=== PATIENT | female | born 1985 | race Caucasian/White ===

== ENCOUNTER → 2019-08-31 17:40 | Outpatient (CLI) | payer MEDICARE, MEDICAID, SELFPAY ==
--- NOTE | 2019-08-31 17:56 | RAD_ITS ---
STUDY: X-RAY - LUMBAR SPINE REASON FOR EXAM: Female, 34 years old. PAIN TECHNIQUE: 3 view(s) of the lumbar spine were obtained. COMPARISON: None FINDINGS: Normal lumbar lordosis. Minimal thoracolumbar scoliosis. There is a normal alignment of the vertebrae. Normal vertebral bodies and endplates. Normal disc space heights. The soft tissue structures are unremarkable. RAD/Lumbar Spine 2 or 3 Views IMPRESSION: Minimal scoliosis at the thoracolumbar junction. Electronically Signed: Kennedy Davalos DO at 23:55 EDT Tel [phone], Service support ,
--- NOTE | 2019-08-31 17:56 | RAD_ITS ---
STUDY: X-RAY - CERVICAL SPINE REASON FOR EXAM: Female, 34 years old. PAIN TECHNIQUE: 4 view(s) of the cervical spine were obtained. COMPARISON: None FINDINGS: Normal anterior atlantoaxial articulation. Normal odontoid process. Normal cervical lordosis. Normal vertebral bodies and endplates. Normal disc space heights. The soft tissue structures are unremarkable. RAD/Cerv Spine 2 or 3 Views IMPRESSION: Normal x-ray examination of the visualized cervical spine. Electronically Signed: Kennedy Davalos DO at 23:55 EDT Tel [phone], Service support ,
== END ==
PROVIDERS: PCP Internal Medicine; Referring Provider Anesthesiology Pain Medicine; Visit Provider Anesthesiology Pain Medicine
DX: M54.2 Cervicalgia (principal); M54.9 Dorsalgia, unspecified
CPT/HCPCS: 72040; 72100

== ENCOUNTER → 2020-08-30 15:35 | Outpatient (CLI) | payer MEDICARE, MEDICAID, SELFPAY ==
[2015-12-13 17:33] VITALS: BMI 49.8
[2020-08-30 18:01] LABS: Amphetamine Urine VISTA NEGATIVE (<1000 ng/mL); Barbiturate Urine VISTA NEGATIVE (< 200 ng/mL); Benzodiazepine Urine VISTA NEGATIVE (< 200 ng/mL); Cocaine Urine VISTA NEGATIVE (< 300 ng/mL); Ecstacy Urine VISTA NEGATIVE (< 500 ng/mL); Methadone Urine VISTA NEGATIVE (< 300 ng/mL); PCP Urine VISTA NEGATIVE (< 25 ng/mL); THC Urine VISTA NEGATIVE (< 50 ng/mL); Vista UDS pH Range 6
== END ==
PROVIDERS: PCP Internal Medicine; Referring Provider Anesthesiology Pain Medicine; Visit Provider Anesthesiology Pain Medicine
DX: F11.20 Opioid dependence, uncomplicated (principal)
CPT/HCPCS: 80307

== ENCOUNTER 2020-12-22 18:44 | Emergency (ER) | payer MEDICARE, MEDICAID, SELFPAY ==
[2020-12-22 18:46] VITALS: BP 144/95; PULSE 94; RESP 25; TEMP 36.4; O2SAT 100; BMI 46.0
--- NOTE | 2020-12-22 18:59 | EKG12_ITS ---
Test Reason : DYSRYTHMIA Blood Pressure : / mmHG Vent. Rate : 079 BPM Atrial Rate : 079 BPM P-R Int : 136 ms QRS Dur : 090 ms QT Int : 428 ms P-R-T Axes : 054 014 045 degrees QTc Int : 490 ms Normal sinus rhythm Prolonged QT Abnormal ECG Confirmed by KELSY COVINGTON, ILSA ([id number]), desk editor DOMINIK COTO ([id number]) on 12/26/2020 1:09:43 PM Referred By: JACQUELINE Confirmed By:ILSA TIERNEY MD
--- NOTE | 2020-12-22 19:00 | EDS_ITS ---
HPI History of Present Illness Chief Complaint: Allergic Reaction Informant: patient Onset/Context/Timing Onset: Today Context: Sudden Onset Timing: Continuous Current Severity: Mild Maximum Severity: Mild Narrative Narrative: 35-year-old female states that she around the dog thought she started having allergic reaction with tightness in her throat she then took an EpiPen which she is never done before. After she took the EpiPen she said her throat very quickly improved. But then she noticed she was very anxious, shaking and felt her heart racing. Again she had never taken an EpiPen injection before. Prior to having the allergic reaction to the dog and then taken the EpiPen she was feeling fine. She has no cardiac history. Prior similar symptoms: No Recent Illness/Hospitalization: No PFSH PFS Medical History Cholecystectomy planned Chronic pain Home Medications Veramist 2 spray NASAL DAILY 12/13/15 [History Last Taken Unknown] Xyrem 4 g PO BID 12/13/15 [History Last Taken Unknown] cetirizine [Zyrtec] 10 mg PO DAILY 12/13/15 [History Last Taken Unknown] colesevelam 1,875 mg PO BID 12/13/15 [History Last Taken Unknown] nitrofurantoin monohyd/m-cryst 100 mg PO Q12 12/13/15 [History Last Taken Unknown] oxycodone-acetaminophen 1 - 2 tab PO Q4H PRN PRN #20 tab 12/13/15 [Rx Last Taken Unknown] pantoprazole 40 mg PO BID 12/13/15 [History Last Taken Unknown] Allergy/AdvReac Type Severity Reaction Status Date / Time dog dander Allergy Shortness Verified 12/22/20 18:48 of breath infliximab [From Remicade] Allergy Anaphylaxis Verified 12/13/15 17:32 pollen extracts Allergy Shortness Verified 12/22/20 18:48 of breath rituximab [From Rituxan] Allergy Anaphylaxis Verified 12/13/15 17:32 montelukast sodium AdvReac Unknown Verified 12/13/15 17:32 [From Singulair] Surgical History History of tonsillectomy Social History Smoking Status: Never smoker ROS ROS ED ROS Narrative Denies recent illness. Review of Systems ROS Unobtainable: Denies due to encephalopathy Constitutional Constitutional ED: Denies chills or fever(s) Eyes Eyes: Denies change in vision ENT ENT ED: Denies ear pain or sore throat Cardiovascular Cardiovascular: Reports racing heartbeat; Denies chest pain or palpitations Respiratory/Chest Respiratory/Chest: Denies cough or dyspnea Gastrointestinal Gastrointestinal: Denies abdominal pain, constipation, diarrhea, nausea or vomiting Genitourinary Genitourinary ED: Denies dysuria Musculoskeletal Musculoskeletal: Denies myalgias Integumentary Denies rash Neurologic Neurologic: Denies headache(s) Psychiatric Psychiatric: Denies depression Endocrine Endocrinology: Denies polyuria Allergic/Immunologic Allergic/Immunologic ED: Denies urticaria EXAM Physical Exam Narrative Exam Narrative: 35-year-old female no acute distress initial blood pressure 144/95. Pulse ox 9% on room air no signs hypoxia. HEENT exam unremarkable. Tongue not swollen. Posterior pharynx normal. No stridor. No drooling. Lungs clear to auscultation bilaterally. Heart regular rhythm rate about 105 no murmur. Chest nontender. Abdomen soft nontender normal bowel sounds no peritoneal signs. Moving all 4 extremities. Neurologically she is awake alert with no focal motor deficits. Patient is anxious. Const Vital Signs: 12/22/20 18:46 Temperature 97.5 F L Temperature Source Temporal Pulse Rate 94 Respiratory Rate 25 H Blood Pressure 144/95 H Blood Pressure Mean 111 Pulse Ox 100 Oxygen Delivery Method Room Air HEENT Reports moist mucous membranes Negative for trauma or tenderness Eyes PERRL and EOMs intact bilaterally Neck no lymphadenopathy, supple and no JVD General: Negative for tenderness Chest Wall inspection of chest normal and palpation of chest normal Resp normal respiratory effort and clear to auscultation bilaterally Cardio regular rhythm and no murmurs Rate: tachycardic GI normal to inspection, nondistended, normoactive bowel sounds, non-tender, non- distended and no masses Inspection: Negative for abdominal distention Auscultation: normoactive bowel sounds Palpation: soft; Negative for tender, guarding or rebound tenderness present Back/Spine no CVA tenderness Extremity normal to inspection General Extremety ED: Negative for edema or tenderness General Extremity: Negative for edema Neuro oriented x3 and CN's II-XII intact bilaterally Sensorium / Orientation: alert Motor Exam: strength 5/5 throughout Psych Mood & Affect: anxious Skin no rashes or lesions noted and no wounds MDM MDM MDM Narrative Medical decision making narrative: Patient took an EpiPen for the first time and tachycardia and anxiety associated with it. Otherwise her exam is unremarkable. I will obtain an EKG. She will be given IV Benadryl both with allergic reaction and water to help relax her. I think most is secondary to anxiety. Repeat exam at 7:25 p.m. patient feels much better. She is much more relaxed and calm after medication. Her heart rates in the 70s. Watch her for another half an hour she is doing well she will be discharged home. Rhythm Strip Rhythm Strip: Sinus Rhythm Rate: 79 Ectopy: None EKG Initial EKG: Attestation: I personally reviewed and interpreted this EKG as follows: Interpretation: Sinus Rhythm and No Acute Injury Pattern Comments: Normal sinus rhythm rate of 79 no acute signs of WA or ischemia. No dysrhythmia. Compared to a prior EKG from May 2005 unchanged. Prior EKG tracings: available for review Prior: Unchanged Discharge Plan Triage Chief Complaint: Allergic Reaction ED Provider: Chucky Gilliland Dx/Rx/DC Orders Clinical Impression: Acute allergic reaction, Drug side effects Instructions: ED General Allergic Reactions, ED Drug Reaction, Other Prescriptions: No Action colesevelam 625 MG tablet 1,875 mg PO BID RF: 0 pantoprazole 40 MG tablet 40 mg PO BID RF: 0 cetirizine [Zyrtec] 10 MG capsule 10 mg PO DAILY RF: 0 Veramist 2 spray NASAL DAILY RF: 0 Xyrem 4 g PO BID RF: 0 nitrofurantoin monohyd/m-cryst 100 MG capsule 100 mg PO Q12 RF: 0 oxycodone-acetaminophen 1 TABLET tablet 1 - 2 tab PO Q4H PRN PRN (Reason: Pain) Qty: 20 RF: 0 Primary Care Provider: Almaz Rosas Referrals: Almaz Rosas MD [Primary Care Provider] - As Needed Activity Restrictions/Additional Instructions: Most your symptoms since night are a side effect of the epinephrine. I think you have an reaction to the dogs and then you took the epinephrine it accelerated your heart rate and major anxious. However the same time improve the tightness in your throat. The Benadryl will help this also and help relax you. Take it easy tonight. You should do well. Call us with any questions or concerns. Disposition Disposition: Home, Self Care
[2020-12-22] MEDS: DiphenhydrAMINE 50 MG/ML Syringe IV (19:01)
[2020-12-22 20:00] VITALS: BP 136/65; PULSE 78; RESP 12; O2SAT 96
== END 2020-12-22 20:04 | disposition home or self-care (01) ==
PROVIDERS: Emergency Provider Emergency Medicine; PCP Internal Medicine
DX: R00.0 Tachycardia, unspecified (principal); F41.9 Anxiety disorder, unspecified; T44.5X5A Adverse effect of predominantly beta-adrenoreceptor agonists, initial encounter; Y92.9 Unspecified place or not applicable
CPT/HCPCS: 93005; 96374; 99283; A4216

== ENCOUNTER 2021-01-09 17:44 | Emergency (ER) | payer MEDICARE, MEDICAID, SELFPAY ==
[2021-01-09 17:44] VITALS: BP 148/77; PULSE 70; RESP 16; TEMP 36.8; O2SAT 100; BMI 44.6
[2021-01-09 19:34] VITALS: O2SAT 98
--- NOTE | 2021-01-09 19:41 | EKG12_ITS ---
Test Reason : DYSRHYTHMIA Blood Pressure : / mmHG Vent. Rate : 073 BPM Atrial Rate : 073 BPM P-R Int : 144 ms QRS Dur : 090 ms QT Int : 398 ms P-R-T Axes : 045 000 039 degrees QTc Int : 438 ms Normal sinus rhythm Normal ECG Confirmed by KELSY COVINGTON, ILSA ([id number]), editor school photograph [employer] EPPS ([id number]) on 01/11/2021 10:14:20 AM Referred By: HERBERT Confirmed By:ILSA TIERNEY MD
--- NOTE | 2021-01-09 19:43 | EDS_ITS ---
HPI History of Present Illness Chief Complaint: Shortness of Breath Informant: patient Narrative Narrative: This patient presents with dyspnea. She also has a little tightness across the lower chest. She has cough and brings up a little clear sputum but no hemoptysis. No pleuritic pain. She has no recent travel surgery immobilization personal history of DVT or PE. No leg pain or swelling. No hormonal therapy. Her father did have a pulmonary embolus but no one else in the family. I don't know further details regarding that or his risks. Patient does have a history of significant allergies to all pollens. She also is allergic to cats and dogs and her father's new got a dog recently that she has been exposed to when she thinks this is causing problems. She has been dealing with the symptoms for a couple weeks. They wax and wane but never completely resolved. She was started on prednisone over the past week for diffuse chronic arthritis. She has reduced the dose of this now and her coughing and breathing seems to have maybe gotten a bit worse. Exposure to the dog and decrease meds makes it worse. Nothing specifically helps her. [facility] Medical History Cholecystectomy planned Chronic pain Narcolepsy POTS (postural orthostatic tachycardia syndrome) Rheumatoid arthritis Sjogrens syndrome Vasculitis Home Medications Veramist 2 spray NASAL DAILY 12/13/15 [History Last Taken Unknown] cetirizine [Zyrtec] 10 mg PO DAILY 12/13/15 [History Last Taken Unknown] colesevelam [WelChol] 1,875 mg PO DAILY 12/13/15 [History Last Taken Unknown] pantoprazole 40 mg PO BID 12/13/15 [History Last Taken Unknown] albuterol sulfate [Ventolin HFA] 2 puff INHALATION Q4H PRN PRN #1 device 01/09/21 [Rx Last Taken Unknown] buprenorphine HCl [Belbuca] 300 mcg BUCCAL BID 01/09/21 [History Last Taken Unknown] escitalopram oxalate 20 mg PO DAILY 01/09/21 [History Last Taken Unknown] ferrous sulfate 325 mg PO QODAY 01/09/21 [History Last Taken Unknown] gabapentin 600 mg PO TID 01/09/21 [History Last Taken Unknown] prednisone 40 mg PO DAILY 01/09/21 [History Last Taken Unknown] sodium,calcium,mag,pot oxybate [Xywav] 2.25 g PO BID 01/09/21 [History Last Taken Unknown] sucralfate 1 g PO BID 01/09/21 [History Last Taken Unknown] Allergy/AdvReac Type Severity Reaction Status Date / Time dog dander Allergy Shortness Verified 01/09/21 17:48 of breath infliximab [From Remicade] Allergy Anaphylaxis Verified 01/09/21 17:48 pollen extracts Allergy Shortness Verified 01/09/21 17:48 of breath rituximab [From Rituxan] Allergy Anaphylaxis Verified 01/09/21 17:48 montelukast sodium AdvReac Unknown Verified 01/09/21 17:48 [From Singulair] Surgical History History of cholecystectomy History of tonsillectomy Social History Smoking Status: Never smoker ROS ROS ED Constitutional Constitutional ED: Denies fever(s) or sweats Eyes Eyes: Denies blurry vision ENT ENT ED: Denies rhinorrhea or sore throat Cardiovascular Cardiovascular: Reports other Details: Chest tightness. It is diffuse across the lower chest. It will last for hours or days at a time. Nothing really makes it better or worse. ; Denies palpitations Respiratory/Chest Respiratory/Chest: Reports cough and dyspnea; Denies sputum Gastrointestinal Gastrointestinal: Denies nausea or vomiting Genitourinary Genitourinary ED: Denies dysuria Musculoskeletal Musculoskeletal: Denies arthralgias or myalgias Integumentary Denies rash Neurologic Neurologic: Denies headache(s) or paresthesias Endocrine Endocrinology: Denies polydipsia or polyuria Hematologic/Lymphatic Hematologic/Lymphatic: Denies easy bleeding or easy bruising Allergic/Immunologic Allergic/Immunologic ED: Denies urticaria EXAM Physical Exam Const Vital Signs: 01/09/21 17:44 01/09/21 19:34 01/09/21 19:56 Temperature 98.3 F Temperature Source Temporal Pulse Rate 70 71 Respiratory Rate 16 16 Respiratory Effort Normal Non-Labored Normal Short of Breath Respiratory Depth Normal Normal Respiratory Pattern Normal Normal Blood Pressure 148/77 H Blood Pressure Mean 100 Pulse Ox 100 96 Oxygen Delivery Method Room Air Room Air Room Air 01/09/21 20:15 Temperature Temperature Source Pulse Rate 80 Respiratory Rate 26 H Respiratory Effort Respiratory Depth Respiratory Pattern Blood Pressure 125/89 H Blood Pressure Mean 101 Pulse Ox 100 Oxygen Delivery Method Room Air Positive well nourished and well developed General Appearance ED: well developed HEENT atraumatic and trauma Eyes PERRL and EOMs intact bilaterally Neck no lymphadenopathy, supple and no JVD Resp normal respiratory effort Resp Narrative: Patient does not have any pain with deep breath. However, she does have wheezing. This is mild expiratory and in all laird. Effort and Inspection: Negative for pain with movement Auscultation: wheezes; Negative for rales, rhonchi or diminished lung sounds Cardio regular rate and regular rhythm GI non-tender and non-distended Palpation: soft Back/Spine no CVA tenderness and normal to inspection Extremity normal to inspection Extremity Narrative: No asymmetry. Patient wears chronic compression hose. General Extremety ED: Yes tenderness Neuro oriented x3 Sensorium / Orientation: alert Psych mental status grossly normal Skin Rashes: no rashes MDM MDM MDM Narrative Medical decision making narrative: Patient's x-ray shows no acute process. White count is 12.3 showing minimal elevation which is nonspecific. Minimal anemia with hemoglobin 11.1. Electrolytes show no marked abnormalities. Troponin is negative. Patient is PERC negative. I listen to her lungs again. She is very clear now she is moving good air. She just has a very faint end expiratory wheeze. I will give her another breathing treatment. She would like a note for her family saying that I think that allergies to the family dog may be contributing to her symptoms. She is already on steroids. She will follow up with her primary physician. We discussed reasons to return. Lab Data Attestation: I reviewed the patient's lab results. Labs: Laboratory Results - last 24 hr 01/09/21 01/09/21 20:10 20:10 WBC 12.3 H RBC 5.36 Hgb 11.1 L Hct 38.3 MCV 71.5 L MCH 20.7 L MCHC 29.0 L RDW Std Deviation 51.0 H RDW Coeff of Juan 20.9 H Plt Count 340 MPV 9.2 Immature Gran % (Auto) 0.700 Neut % (Auto) 85.6 H Lymph % (Auto) 8.8 L Scott % (Auto) 4.5 Eos % (Auto) 0.2 Baso % (Auto) 0.2 Absolute Neuts (auto) 10.5 H Absolute Lymphs (auto) 1.08 Nucleated RBC % 0 Platelet Estimate ADEQUATE RBC Morphology N CHROM Anisocytosis 1+ Sodium 132 L Potassium 4.1 Chloride 104 Carbon Dioxide 22.0 Anion Gap 6 BUN 11 Creatinine 0.77 Estim Creat Clear Calc 111.81 Est GFR (MDRD) Af Amer 108 Est GFR (MDRD) Non-Af 89 BUN/Creatinine Ratio 14.2 Glucose 88 Calcium 8.9 Troponin I High Sens 4.2 Radiography Diagnostic Testing: Radiology Impression Chest X-Ray 01/09/21 20:28 IMPRESSION: Normal x-ray examination of the chest. Electronically Signed: Isidoro Catsaneda MD at 20:47 EDT , Service support , Discharge Plan Triage Chief Complaint: Shortness of Breath ED Provider: Bharat Howell Dx/Rx/DC Orders Clinical Impression: Acute bronchospasm, Allergy to environmental factors Instructions: ED Bronchospasm (Adult) Prescriptions: New albuterol sulfate [Ventolin HFA] 90 mcg/actuation HFA aerosol inhaler 2 puff inhalation Q4H PRN PRN (Reason: Wheezing) Qty: 1 RF: 0 No Action colesevelam [WelChol] 625 MG tablet 1,875 mg PO DAILY RF: 0 pantoprazole 40 MG tablet 40 mg PO BID RF: 0 Zyrtec 10 MG capsule 10 mg PO DAILY RF: 0 Veramist 2 spray NASAL DAILY RF: 0 gabapentin 600 mg tablet 600 mg PO TID RF: 0 sucralfate 1 gram tablet 1 g PO BID RF: 0 ferrous sulfate 325 mg (65 mg iron) tablet 325 mg PO QODAY RF: 0 escitalopram oxalate 20 mg tablet 20 mg PO DAILY RF: 0 Belbuca 300 mcg film 300 mcg BUCCAL BID RF: 0 prednisone 20 mg Tablet 40 mg PO DAILY RF: 0 Xywav 0.5 gram/mL Solution 2.25 g PO BID RF: 0 Primary Care Provider: Almaz Rosas Referrals: Almaz Rosas MD [Primary Care Provider] - 1 Day Activity Restrictions/Additional Instructions: Limit exposures to allergens including outside allergens as well as cats and dogs that may be contributing to your symptoms. Disposition Disposition: Home, Self Care
[2021-01-09 19:56] VITALS: PULSE 71; RESP 16; RESP 18; O2SAT 96
[2021-01-09] MEDS: Ipratropium/Albuterol Sulfate 3 ML AMPUL.NEB INHALATION (19:56)
[2021-01-09 20:15] VITALS: BP 125/89; PULSE 80; RESP 26; O2SAT 100
[2021-01-09 20:16] LABS: Absolute Lymphocyte Count 1.08 X10^3/uL (0.83-4.51); Absolute Neutrophil Count 10.5 X10^3/uL (2.0-7.7); Basophil# 0.03 X10^3/uL; Basophil% 0.2 % (0-1); Eosinophil# 0.02 X10^3/uL; Eosinophils% 0.2 % (0-5); Hematocrit 38.3 % (37-47); Hemoglobin 11.1 g/dL (12.0-15.0); Lymphocyte # 1.08 X10^3/ul (0.83-4.51); Lymphocyte % 8.8 % (19-41); Mean Corpuscular Hgb 20.7 pg (27.0-32.0); Mean Corpuscular Volume 71.5 fL (81-99); Mean Platelet Vol. 9.2 fl (6.2-12.0); Monocyte# 0.55 X10^3/uL; Monocyte% 4.5 % (0-10); NRBC Flagged by Analyzer 0 % (0-5); Neutrophil # 10.48 X10^3/uL (2.7-7.7); Neutrophil % 85.6 % (47-70); POSITIVE MORPHOLOGY YES; Platelet Count 340 K/mm3 (150-450); RBC Distribution Width CV 20.9 % (11.6-14.6); Red Blood Count 5.36 M/mm3 (4.2-5.4); White Blood Count 12.3 K/mm3 (4.4-11.0)
--- NOTE | 2021-01-09 20:28 | RAD_ITS ---
STUDY: X-RAY CHEST REASON FOR EXAM: Female, 35 years old. SOB TECHNIQUE: AP and lateral views of the chest. COMPARISON: None. FINDINGS: EKG electrodes are seen. The lungs are clear and expanded. There is no demonstrated pleural abnormality. Normal size heart. Normal mediastinum and palmira. Normal visualized pulmonary arteries. Normal visualized aortic arch and descending thoracic aorta. Normal visualized thoracic spine. Normal visualized ribs, clavicles, and shoulders. There is no demonstrated abnormality of the visualized soft tissue structures of the upper abdomen. RAD/Chest PA and Lateral IMPRESSION: Normal x-ray examination of the chest. Electronically Signed: Isidoro Castaneda MD at 20:47 EDT , Service support ,
[2021-01-09 20:29] LABS: Differential Indicated SCAN CRITERIA MET
[2021-01-09 20:36] LABS: Anion Gap 6 (5-15); BUN 11 mg/dL (7-18); BUN/Creat Ratio 14.2 RATIO (10-20); Calcium,Total 8.9 mg/dL (8.5-10.1); Chloride 104 mmol/L (98-107); Creatinine, Serum 0.77 mg/dL (0.55-1.02); EST Glomerular Filtration Rate 89 mL/min (>60); Est Glom Filt Rate - Afr Amer 108 mL/min (>60); Estimated Creatinine Clearance 111.81 ml/min; Glucose 88 mg/dL (74-106); Potassium 4.1 mmol/L (3.5-5.1); Sodium Level 132 mmol/L (136-145); Troponin-I HS 4.2 pg/mL (3.0-53.7)
[2021-01-09 21:10] LABS: Anisocytosis 1+; Platelet Estimate ADEQUATE (ADEQ); Red Cell Morphology N CHROM NORMAL (NORM C&C)
== END 2021-01-09 22:19 | disposition home or self-care (01) ==
PROVIDERS: Emergency Provider Emergency Medicine; PCP Internal Medicine
DX: J98.01 Acute bronchospasm (principal); Z91.048 Other nonmedicinal substance allergy status; D64.9 Anemia, unspecified; I49.8 Other specified cardiac arrhythmias; G89.29 Other chronic pain; M06.9 Rheumatoid arthritis, unspecified; M35.00 Sjogren syndrome, unspecified; G47.419 Narcolepsy without cataplexy; Z79.52 Long term (current) use of systemic steroids; Z79.899 Other long term (current) drug therapy
CPT/HCPCS: 71046; 80048; 84484; 85025; 93005; 94640; 99251; 99284; A4216; G0463

== ENCOUNTER 2021-04-01 18:20 | Inpatient (IN) | payer MEDICARE, MEDICAID, SELFPAY ==
[2021-04-01] VITALS (10 sets, daily range): BP systolic 122–156; BP diastolic 68–89; PULSE 77–90; RESP 13–18; TEMP 36.7–37.1; O2SAT 95–100; BMI 46.0; BMI 46.5
--- NOTE | 2021-04-01 18:54 | US_ITS ---
STUDY: VENOUS DOPPLER ULTRASOUND - LEFT LOWER EXTREMITY REASON FOR EXAM: Female, 35 years old. Leg pain SWELLING TECHNIQUE: Ultrasound evaluation of the deep vein system to include jesus-scale imaging and compression was performed. Jesus-scale imaging and Doppler sonographic evaluation, including duplex spectral analysis and qualitative color flow sonography, was performed. COMPARISON: None. FINDINGS: Common Femoral Vein: Normal compression, spontaneity and augmentation. Normal color Doppler. Common Femoral Vein/Greater Saphenous Junction: Normal compression, spontaneity and augmentation. Normal color Doppler. Deep Femoral Vein: Normal compression, spontaneity and augmentation. Normal color Doppler. Femoral Proximal: Normal compression, spontaneity and augmentation. Normal color Doppler. Femoral Middle: Normal compression, spontaneity and augmentation. Normal color Doppler. Femoral Distal: Normal compression, spontaneity and augmentation. Normal color Doppler. Popliteal Vein: Normal compression, spontaneity and augmentation. Normal color Doppler. Posterior Tibial Vein: Normal compression, spontaneity and augmentation. Normal color Doppler. Peroneal Vein: Normal compression, spontaneity and augmentation. Normal color Doppler. US/Venous Duplex Imag/Limited/Uni IMPRESSION: Normal venous Doppler ultrasound of the lower extremity. Electronically Signed: Brigette Levi MD at 20:14 EDT Tel , Service support ,
[2021-04-01] MEDS: 0.9% Normal Saline 1,000 ML 999 ML IV (19:08)
[2021-04-01 19:09] LABS: Absolute Neutrophil Count 10.1 X10^3/uL (2.0-7.7); Basophil# 0.02 X10^3/uL; Basophil% 0.2 % (0-1); Eosinophil# 0.02 X10^3/uL; Eosinophils% 0.2 % (0-5); Hematocrit 42.9 % (37-47); Hemoglobin 12.7 g/dL (12.0-15.0); Lymphocyte % 5.5 % (19-41); Mean Corp Hgb Conc 29.6 g/dL (32-36); Mean Corpuscular Hgb 23.6 pg (27.0-32.0); Mean Corpuscular Volume 79.7 fL (81-99); Mean Platelet Vol. 9.1 fl (6.2-12.0); Monocyte% 1.8 % (0-10); NRBC Flagged by Analyzer 0 % (0-5); Neutrophil # 10.07 X10^3/uL (2.7-7.7); Neutrophil % 91.9 % (47-70); POSITIVE DIFFERENTIAL YES; Platelet Count 328 K/mm3 (150-450); RBC Distribution Width SD 52.1 fl (35.1-43.9); Red Blood Count 5.38 M/mm3 (4.2-5.4)
[2021-04-01 19:13] LABS: Differential Indicated SCAN CRITERIA MET
[2021-04-01 19:16] LABS: Erythrocyte Sedimentation Rate 67 mm/hr (0-30)
--- NOTE | 2021-04-01 19:19 | EDS_ITS ---
HPI History of Present Illness Chief Complaint: Cellulitis Narrative Narrative: 35-year-old female presenting with redness and swelling of the left foot and leg. She states that this started about 3 days ago. She notes that it started on the plantar surface of the distal foot. She believes she had a small wound there. The redness and swelling has now spread across the dorsum of her foot and up into the proximal tibia and calf region circumferentially. Patient states she has not had a fever but does state that she has been rundown. Patient has not been on any antibiotics. She has no history of DVT/PE. She states she has a history of Sjogren's, vasculitis, arthritis and does take Belbuca for chronic pains. She sees Dr. Darling. Patient states that she is on prednisone as well. She states she is taking 30 mg currently daily. [facility] Medical History Cholecystectomy planned Chronic pain Narcolepsy POTS (postural orthostatic tachycardia syndrome) Rheumatoid arthritis Sjogrens syndrome Vasculitis Home Medications Veramist 2 spray NASAL DAILY 12/13/15 [History Last Taken Unknown] cetirizine [Zyrtec] 10 mg PO DAILY 12/13/15 [History Last Taken Unknown] colesevelam [WelChol] 1,875 mg PO DAILY 12/13/15 [History Last Taken Unknown] pantoprazole 40 mg PO BID 12/13/15 [History Last Taken Unknown] albuterol sulfate [Ventolin HFA] 2 puff INHALATION Q4H PRN PRN #1 device 01/09/21 [Rx Last Taken Unknown] buprenorphine HCl [Belbuca] 300 mcg BUCCAL BID 01/09/21 [History Last Taken Unknown] escitalopram oxalate 20 mg PO DAILY 01/09/21 [History Last Taken Unknown] ferrous sulfate 325 mg PO QODAY 01/09/21 [History Last Taken Unknown] gabapentin 600 mg PO TID 01/09/21 [History Last Taken Unknown] prednisone 40 mg PO DAILY 01/09/21 [History Last Taken Unknown] sodium,calcium,mag,pot oxybate [Xywav] 2.25 g PO BID 01/09/21 [History Last Taken Unknown] sucralfate 1 g PO BID 01/09/21 [History Last Taken Unknown] Allergy/AdvReac Type Severity Reaction Status Date / Time dog dander Allergy Shortness Verified 04/01/21 18:21 of breath infliximab [From Remicade] Allergy Anaphylaxis Verified 04/01/21 18:21 pollen extracts Allergy Shortness Verified 04/01/21 18:21 of breath rituximab [From Rituxan] Allergy Anaphylaxis Verified 04/01/21 18:21 montelukast sodium AdvReac Unknown Verified 04/01/21 18:21 [From Singulair] Surgical History History of cholecystectomy History of tonsillectomy Social History Smoking Status: Never smoker EXAM Physical Exam Const Vital Signs: 04/01/21 18:21 04/01/21 18:24 04/01/21 18:52 Temperature 98.4 F 98.4 F 98.0 F Temperature Source Temporal Temporal Oral Pulse Rate 86 89 90 Respiratory Rate 17 18 18 Blood Pressure 156/89 H 156/89 H 148/79 H Blood Pressure Mean 111 111 102 Pulse Ox 96 95 99 Oxygen Delivery Method Room Air Room Air 04/01/21 19:44 04/01/21 20:22 04/01/21 21:00 Temperature 98.0 F 98.3 F 98.7 F Temperature Source Oral Oral Oral Pulse Rate 90 81 86 Respiratory Rate 18 16 14 Blood Pressure 148/79 H 126/68 H 124/76 H Blood Pressure Mean 102 87 92 Pulse Ox 99 98 97 Oxygen Delivery Method Room Air Room Air MDM MDM MDM Narrative Medical decision making narrative: Patient presenting with diffuse cellulitis of the left lower extremity including the foot, ankle, calf. Patient does not have a fever but states that she has been rundown and feeling a little bit lightheaded especially when ambulating. Patient states she has pain in the left leg as well fairly diffusely. She believes this started from a foot wound on the distal plantar surface and this is spread proximally over the last 3 days. Patient was initially seen in urgent care and then referred to the ER. I did obtain blood work and her CBC does not show a white blood cell count however she does have a left shift. Sed rate is 67, CRP 9.9. Renal function electrolytes are normal. Patient's lactic acid was elevated at 2.4. She was given a liter of IV fluids. Her vital signs remained stable. After speaking with the patient she states that she has a history of MRSA and cellulitis in the past. For this reason she was given vancomycin in the ED. Given that the cellulitis has spread proximally is diffuse and circumferential I believe the patient would benefit from IV antibiotics and inpatient therapy. She was discussed with the hospitalist for admission. Impression: 1. Left lower extremity cellulitis 2. Lactic acidosis Lab Data Attestation: I reviewed the patient's lab results. Labs: Laboratory Results - last 24 hr 04/01/21 04/01/21 04/01/21 18:55 18:55 18:55 WBC 11.0 RBC 5.38 Hgb 12.7 Hct 42.9 MCV 79.7 L MCH 23.6 L MCHC 29.6 L RDW Std Deviation 52.1 H RDW Coeff of Juan 18.0 H Plt Count 328 MPV 9.1 Immature Gran % (Auto) 0.400 Neut % (Auto) 91.9 H Lymph % (Auto) 5.5 L [place] % (Auto) 1.8 Eos % (Auto) 0.2 Baso % (Auto) 0.2 Absolute Neuts (auto) 10.1 H Absolute Lymphs (auto) 0.60 L Nucleated RBC % 0 Differential Comment Platelet Estimate ADEQUATE RBC Morphology NORM C+C ESR 67 H Sodium 137 Potassium 4.0 Chloride 106 Carbon Dioxide 26.0 Anion Gap 5 BUN 9 Creatinine 0.73 Estim Creat Clear Calc 117.93 Est GFR (MDRD) Af Amer 115 Est GFR (MDRD) Non-Af 95 BUN/Creatinine Ratio 12.3 Glucose 98 Lactic Acid 2.4 H* Calcium 9.2 Total Bilirubin 0.30 AST 24 ALT 48 Alkaline Phosphatase 191 H C-React Prot Ext Range 9.91 H Total Protein 8.9 H Albumin 3.5 Globulin 5.4 H Albumin/Globulin Ratio 0.6 L Radiography Diagnostic Testing: Clinical Impression(s) from Imaging Studies Venous Duplex 04/01/21 18:54 IMPRESSION: Normal venous Doppler ultrasound of the lower extremity. Electronically Signed: Brigette Levi MD at 20:14 EDT Tel , Service support , Foot X-Ray 04/01/21 20:30 IMPRESSION: Soft tissue swelling of the foot without osseous or articular abnormality. Electronically Signed: Yordy Pineda DO at 21:04 EDT Tel [phone], Service support , Tibia/Fibula X-Ray 04/01/21 20:30 IMPRESSION: Soft tissue swelling without osseous or articular abnormality. Electronically Signed: Yordy Pineda DO at 21:57 EDT Tel [phone], Service support , Discharge Plan Triage Chief Complaint: Cellulitis ED Provider: Mark Chinchilla Dx/Rx/DC Orders Prescriptions: No Action colesevelam [WelChol] 625 MG tablet 1,875 mg PO DAILY RF: 0 pantoprazole 40 MG tablet 40 mg PO BID RF: 0 Zyrtec 10 MG capsule 10 mg PO DAILY RF: 0 Veramist 2 spray NASAL DAILY RF: 0 gabapentin 600 mg tablet 600 mg PO TID RF: 0 sucralfate 1 gram tablet 1 g PO BID RF: 0 ferrous sulfate 325 mg (65 mg iron) tablet 325 mg PO QODAY RF: 0 escitalopram oxalate 20 mg tablet 20 mg PO DAILY RF: 0 buprenorphine HCl [Belbuca] 300 mcg film 300 mcg BUCCAL BID RF: 0 prednisone 20 mg Tablet 40 mg PO DAILY RF: 0 Xywav 0.5 gram/mL Solution 2.25 g PO BID RF: 0 albuterol sulfate [Ventolin HFA] 90 mcg/actuation HFA aerosol inhaler 2 puff inhalation Q4H PRN PRN (Reason: Wheezing) Qty: 1 RF: 0 Primary Care Provider: Almaz Rosas
[2021-04-01 19:26] LABS: ALB/GLOB Ratio 0.6 RATIO (0.9-2.4); AST(SGOT) 24 U/L (15-37); Alanine Aminotransfer ALT/SGPT 48 U/L (13-56); Albumin, Serum 3.5 g/dL (3.2-5.0); Alkaline Phosphatase 191 U/L (45-117); Anion Gap 5 (5-15); BUN 9 mg/dL (7-18); BUN/Creat Ratio 12.3 RATIO (10-20); CRP 9.91 mg/L (0.0-3.0); Calcium,Total 9.2 mg/dL (8.5-10.1); Chloride 106 mmol/L (98-107); Creatinine, Serum 0.73 mg/dL (0.55-1.02); EST Glomerular Filtration Rate 95 mL/min (>60); Est Glom Filt Rate - Afr Amer 115 mL/min (>60); Estimated Creatinine Clearance 117.93 ml/min; Globulin 5.4 g/dL (2.2-4.2); Glucose 98 mg/dL (74-106); Protein, Total 8.9 g/dL (6.4-8.2); Sodium Level 137 mmol/L (136-145)
[2021-04-01 19:43] LABS: Lactic Acid 2.4 mmol/L (0.4-1.9)
[2021-04-01 20:01] LABS: Platelet Estimate ADEQUATE (ADEQ); Red Cell Morphology NORM C+C NORMAL (NORM C&C)
[2021-04-01] MEDS: BENZOCAINE/MENTHOL 1 LOZENGE MUCOUS MEM (20:07)
--- NOTE | 2021-04-01 20:30 | RAD_ITS ---
STUDY: X-RAY - LEFT FOOT CLINICAL: Female, 35 years old. Foot swelling. Cellulitis beginning 3 days ago. TECHNIQUE: 3 view(s) of the foot. COMPARISON: None. FINDINGS: Normal talus, calcaneus, and tarsal bones. Normal visualized subtalar, talonavicular, calcaneocuboid, tarsal and tarsometatarsal articulations. Normal metatarsi. Normal metatarsophalangeal joint of the great toe. Normal tibial and fibular sesamoid bones. Normal interphalangeal joint of the great toe. Normal phalanges of the great toe. Normal second through fifth metatarsophalangeal joints. Normal interphalangeal joints and phalanges of the lesser toes. Mild soft tissue swelling. RAD/Foot min 3 Views IMPRESSION: Soft tissue swelling of the foot without osseous or articular abnormality. Electronically Signed: Yordy Pineda DO at 21:04 EDT Tel [phone], Service support ,
--- NOTE | 2021-04-01 20:30 | RAD_ITS ---
STUDY: X-RAY - LEFT TIBIA AND FIBULA REASON FOR EXAM: Female, 35 years old. Leg swelling. Cellulitis of the left foot symptoms began 3 days ago TECHNIQUE: AP and lateral view(s) of the tibia and fibula were obtained. COMPARISON: None. FINDINGS: Normal visualized tibia. Normal visualized fibula. There is no acute fracture, dislocation or destructive osseous pathology. The knee and ankle appear intact. Soft tissue swelling about the lower leg and ankle RAD/Tibia & Fibula 2 Views IMPRESSION: Soft tissue swelling without osseous or articular abnormality. Electronically Signed: Yordy Pineda DO at 21:57 EDT Tel [phone], Service support ,
--- NOTE | 2021-04-01 22:17 | PCM.HP.STD ---
HPI - General General Date of Admission: 04/01/21 HPI Narrative DARRYL NICHOLS, is a 35 F with a significant history of Sjogren's syndrome; rheumatoid arthritis; narcolepsy; morbid obesity; posterior orthostatic tachycardia syndrome and vasculitis who presents to the emergency department with swelling of her left foot that progressed to her left leg circumferentially. Her symptoms started about 2 to 3 days ago. Associated with her symptoms is pain and increased erythema of her left foot and left leg. Her symptoms have been progressively worsened. Patient reports a history of callus under her left foot. She reports a history of soft tissue MRSA infection of the left hip. She denies any nausea vomiting or fever. Because of a history of soft tissue MRSA emergent department doctor started patient on vancomycin. Of note at baseline patient has erythema and petechiae rash on bilateral legs, attributed to vasculitis and for which reason for which she is on prednisone. [facility] Medical History Cholecystectomy planned Chronic pain Narcolepsy POTS (postural orthostatic tachycardia syndrome) Rheumatoid arthritis Sjogrens syndrome Vasculitis Home Medications Veramist 2 spray NASAL DAILY 12/13/15 [History Last Taken Unknown] cetirizine [Zyrtec] 10 mg PO DAILY 12/13/15 [History Last Taken Unknown] colesevelam [WelChol] 1,875 mg PO DAILY 12/13/15 [History Last Taken Unknown] pantoprazole 40 mg PO BID 12/13/15 [History Last Taken Unknown] albuterol sulfate [Ventolin HFA] 2 puff INHALATION Q4H PRN PRN #1 device 01/09/21 [Rx Last Taken Unknown] buprenorphine HCl [Belbuca] 300 mcg BUCCAL BID 01/09/21 [History Last Taken Unknown] escitalopram oxalate 20 mg PO DAILY 01/09/21 [History Last Taken Unknown] ferrous sulfate 325 mg PO QODAY 01/09/21 [History Last Taken Unknown] gabapentin 600 mg PO TID 01/09/21 [History Last Taken Unknown] prednisone 40 mg PO DAILY 01/09/21 [History Last Taken Unknown] sodium,calcium,mag,pot oxybate [Xywav] 2.25 g PO BID 01/09/21 [History Last Taken Unknown] sucralfate 1 g PO BID 01/09/21 [History Last Taken Unknown] Allergy/AdvReac Type Severity Reaction Status Date / Time dog dander Allergy Shortness Verified 04/01/21 18:21 of breath infliximab [From Remicade] Allergy Anaphylaxis Verified 04/01/21 18:21 pollen extracts Allergy Shortness Verified 04/01/21 18:21 of breath rituximab [From Rituxan] Allergy Anaphylaxis Verified 04/01/21 18:21 montelukast sodium AdvReac Unknown Verified 04/01/21 18:21 [From Singulair] Family History Other Allergies Asthma Cancer Diabetes Heart disease Surgical History History of cholecystectomy History of tonsillectomy Social History Smoking Status: Never smoker ROS ROS Narrative Constitutional: Denies fever, chills, fatigue, anorexia and change in weight Eyes: Denies blurry vision, change in eye color, change in vision, discharge from eye(s), double vision, erythema, eye pain, loss of vision or other HEENT: Denies abnormal hearing, dysphagia, ear pain, epistaxis, headache(s), hearing loss, nasal congestion, nasal discharge, post nasal drip, sinus pressure, sore throat or other Cardiovascular: Denies chest pain or palpitations. Denies dyspnea on exertion, orthopnea and paroxysmal nocturnal dyspnea Respiratory/Chest: Denies cough, excessive phlegm production, shortness of breath with exertion and wheezing Gastrointestinal: Denies abdominal pain, coffee ground emesis, constipation, diarrhea, dyspepsia, hematemesis, hematochezia, loose stools, melena, nausea, vomiting or other Genitourinary: Denies burning urination, difficulty urinating, dysuria, hematuria, nocturia, urinary frequency, urinary hesitancy, urinary incontinence, urinary urgency or other Musculoskeletal: Reports lower back pain (chronic). Denies myalgias, neck pain or other Neurologic: Denies abnormal gait, abnormal speech, confusion, disequilibrium, dizziness, focal weakness, headache(s), numbness, paresthesias, seizure-like activity, seizures, syncope, tingling, tremor(s) or other Psychiatric: Denies anxiety, depression, homicidal ideation, suicidal ideation or other Endocrinology: Denies change in body appearance, cold intolerance, excessive sweating, heat intolerance, polydipsia, polyuria or other Hematologic/Lymphatic: Denies anemia, easy bleeding, easy bruising, lymphadenopathy or other Integumentary: With bilateral leg petechiae rashes. Swelling of left foot and left leg. Allergic/Immunologic: Denies rhinitis, hives, eczema, asthma or other Vital Signs Vital Signs Vital Signs: 04/01/21 18:21 04/01/21 18:24 04/01/21 18:52 Temperature 98.4 F 98.4 F 98.0 F Temperature Source Temporal Temporal Oral Pulse Rate 86 89 90 Respiratory Rate 17 18 18 Blood Pressure 156/89 H 156/89 H 148/79 H Blood Pressure Mean 111 111 102 Pulse Ox 96 95 99 Oxygen Delivery Method Room Air Room Air 04/01/21 19:44 04/01/21 20:22 04/01/21 21:00 Temperature 98.0 F 98.3 F 98.7 F Temperature Source Oral Oral Oral Pulse Rate 90 81 86 Respiratory Rate 18 16 14 Blood Pressure 148/79 H 126/68 H 124/76 H Blood Pressure Mean 102 87 92 Pulse Ox 99 98 97 Oxygen Delivery Method Room Air Room Air Weight Weight: 149.685 kg Body Mass Index (BMI) 46.0 Physical Exam Narrative Physical exam: General: Morbidly obese. Head: Normocephalic, atraumatic, no tenderness Eyes: PERRLA, EOMI ENT, no trauma, moist mucous membranes, no rhinorrhea Neck: Nontender, full range of motion, no spinal tenderness, deformities, step-off CVS: Regular rate and rhythm. S1-S2 present. No murmur, gallop or rub. Respiratory : clear to auscultation bilaterally, chest wall nontender, no wheezing Abdomen: Soft, nontender, nondistended, normal bowel sounds, no masses : Deferred Back: Nontender, no CVA tenderness, no midline spinal tenderness, deformities, step-offs Extremities: Nontender full range of motion, no trauma Skin: Point tenderness of callus at dorsal left folds. Tenderness of left foot. Swelling and erythema of left leg. Petechiae rash of bilateral legs. Neuro: Alert, oriented, cranial nerves II through XII grossly intact. Psychiatry: Normal mood. Normal affect. Not depressed. Not anxious. Results Lab / Micro Data Result Diagrams: 04/01/21 18:55 04/01/21 18:55 Labs: Laboratory Results - last 24 hr 04/01/21 18:55: WBC 11.0, RBC 5.38, Hgb 12.7, Hct 42.9, MCV 79.7 L, MCH 23.6 L, MCHC 29.6 L, RDW Std Deviation 52.1 H, RDW Coeff of Juan 18.0 H, Plt Count 328, MPV 9.1, Immature Gran % (Auto) 0.400, Neut % (Auto) 91.9 H, Lymph % (Auto) 5.5 L, [place] % (Auto) 1.8, Eos % (Auto) 0.2, Baso % (Auto) 0.2, Absolute Neuts (auto) 10.1 H, Absolute Lymphs (auto) 0.60 L, Nucleated RBC % 0, Differential Comment , Platelet Estimate ADEQUATE, RBC Morphology NORM C+C, ESR 67 H 04/01/21 18:55: Sodium 137, Potassium 4.0, Chloride 106, Carbon Dioxide 26.0, Anion Gap 5, BUN 9, Creatinine 0.73, Estim Creat Clear Calc 117.93, Est GFR (MDRD) Af Amer 115, Est GFR (MDRD) Non-Af 95, BUN/Creatinine Ratio 12.3, Glucose 98, Calcium 9.2, Total Bilirubin 0.30, AST 24, ALT 48, Alkaline Phosphatase 191 H, C-React Prot Ext Range 9.91 H, Total Protein 8.9 H, Albumin 3.5, Globulin 5.4 H, Albumin/Globulin Ratio 0.6 L 04/01/21 18:55: Lactic Acid 2.4 H* Micro: Microbiology 04/01/21 19:05 Nasal Secretion SARS-CoV-2 Antigen (Rapid) - Final Radiology Impression Venous Duplex 04/01/21 18:54 IMPRESSION: Normal venous Doppler ultrasound of the lower extremity. Electronically Signed: Brigette Levi MD at 20:14 EDT Tel , Service support , Foot X-Ray 04/01/21 20:30 IMPRESSION: Soft tissue swelling of the foot without osseous or articular abnormality. Electronically Signed: Yordy Pineda DO at 21:04 EDT Tel [phone], Service support , Tibia/Fibula X-Ray 04/01/21 20:30 IMPRESSION: Soft tissue swelling without osseous or articular abnormality. Electronically Signed: Yordy Pineda DO at 21:57 EDT Tel [phone], Service support , Assessment & Plan Assessment/Plan (1) Cellulitis of left lower extremity: PLAN: Cellulitis of left lower extremity Impression of venous duplex by radiologist: Normal venous Doppler ultrasound of the lower extremity. Venous duplex image was independently interpreted and agree radiologist interpretation. Foot x-ray; left tibia and fibula x-ray shows soft tissue swelling without osseous or articular abnormality. can not rule out a foreign body/bacteria introduced through callus of left foot. Discussed with emergent department doctor who discussed case with podiatry. Per emergency department doctor Dr. Bradley can see patient on consult. Podiatry, Dr. Bradley consulted. Emergency department labs were reviewed. Patient with normal white counts but with neutrophilia and lymphopenia. ESR is 67H, CRP is 9.91H. Of note patient is on steroids for vasculitis. Because patient has a history of MRSA vancomycin was given at the ED. Continue vancomycin. Lactic acid 2.4, trend Trend CBC and BMP. Narcolepsy Xyvaw continued. Vasculitis/Sjogren's syndrome/rheumatoid arthritis Prednisone continued Depression/anxiety Lexapro continued Chronic lower back pain gabapentin and buprenorphine continued History of allergies/asthma Albuterol as needed continued GERD Pantoprazole and sucralfate continued. DVT prophylaxis: Subcutaneous Lovenox Charges/Coding Visit Charges Inpatient E&M: 46723 Init Hosp L2
[2021-04-01 23:05] LABS: Reflex Lactate? Y
[2021-04-01 23:54] LABS: Lactic Acid 1.6 mmol/L (0.4-1.9)
[2021-04-02] MEDS: MELATONIN 3 MG TABLET PO (00:13)
[2021-04-02] MEDS: Acetaminophen 325 MG Tablet 650 MG PO ×2 (00:13→10:34)
[2021-04-02] MEDS: Pantoprazole Sodium 40 MG Tablet PO ×3 (00:14→22:33)
[2021-04-02] MEDS: Gabapentin 600 MG Tablet PO ×3 (00:14→22:33)
[2021-04-02] MEDS: Sucralfate 1 GM Tablet PO ×3 (00:15→18:00)
--- NOTE | 2021-04-02 00:20 | PCM.RX.CS ---
Consult Pharmacy has been consulted to manage selected antiobiotic: Vancomycin Type of Consult: New start Suspected Infection: Skin/Soft tissue Labs: Sodium 137 mmol/L (136-145) 04/01/21 18:55 Potassium 4.0 mmol/L (3.5-5.1) 04/01/21 18:55 Chloride 106 mmol/L (98-107) 04/01/21 18:55 Carbon Dioxide 26.0 mmol/L (21.0-32.0) 04/01/21 18:55 Anion Gap 5 (5-15) 04/01/21 18:55 BUN 9 mg/dL (7-18) 04/01/21 18:55 Creatinine 0.73 mg/dL (0.55-1.02) 04/01/21 18:55 Est GFR (MDRD) Af Amer 115 mL/min (>60) 04/01/21 18:55 Est GFR (MDRD) Non-Af 95 mL/min (>60) 04/01/21 18:55 BUN/Creatinine Ratio 12.3 RATIO (10-20) 04/01/21 18:55 Glucose 98 mg/dL (74-106) 04/01/21 18:55 Microbiology: Microbiology 04/01/21 19:05 Nasal Secretion SARS-CoV-2 Antigen (Rapid) - Final Goal Trough: 15-20 mcg/mL Pharmacy Plan for Drug Dosing: Pharmacy Service will continue to monitor and adjust dosing as required. Medications Vancomycin HCl 1,500 mg/ (Sodium Chloride) 530 mls @ 250 mls/hr IV Q8H MAKREL Discontinued Medications Vancomycin HCl 2,000 mg/ (Sodium Chloride) 540 mls @ 250 mls/hr IV X1 ONE Stop: 04/01/21 23:51 Last Admin: 04/01/21 22:15 Dose: 250 mls/hr Documented by: Follow-Up Labs: Trough Vancomycin Labs to be done on [date and time ordered]: 04/02 @ 1030
--- NOTE | 2021-04-02 01:00 | NURSING ---
Pt takes Neurontin 1200mg 3-4 hours before bed then additional 600mg and sleeping pill 1 hour before bedtime. Medication was prescribed by pts neurologist Dr. Cast in [place]. Dr. Narayanan notified, ok to give medication as pt takes at home.
--- NOTE | 2021-04-02 01:39 | PCS.PANDOC ---
PANDEMIC DOCUMENTATION INITIATED: Date: 02/04/2021 Time: 1900 Emergency documentation initiated 04/02/21
[2021-04-02 05:45] LABS: Absolute Lymphocyte Count 1.08 X10^3/uL (0.83-4.51); Absolute Neutrophil Count 5.3 X10^3/uL (2.0-7.7); Basophil# 0.01 X10^3/uL; Basophil% 0.1 % (0-1); Eosinophil# 0.03 X10^3/uL; Eosinophils% 0.4 % (0-5); Hematocrit 38.7 % (37-47); Hemoglobin 11.4 g/dL (12.0-15.0); Lymphocyte # 1.08 X10^3/ul (0.83-4.51); Lymphocyte % 15.4 % (19-41); Mean Corp Hgb Conc 29.5 g/dL (32-36); Mean Corpuscular Hgb 23.5 pg (27.0-32.0); Mean Corpuscular Volume 79.8 fL (81-99); Mean Platelet Vol. 9.5 fl (6.2-12.0); Monocyte# 0.59 X10^3/uL; Monocyte% 8.4 % (0-10); NRBC Flagged by Analyzer 0 % (0-5); Neutrophil # 5.27 X10^3/uL (2.7-7.7); Neutrophil % 75.3 % (47-70); Platelet Count 311 K/mm3 (150-450); RBC Distribution Width SD 51.9 fl (35.1-43.9); Red Blood Count 4.85 M/mm3 (4.2-5.4)
[2021-04-02 06:09] LABS: Anion Gap 7 (5-15); BUN 7 mg/dL (7-18); BUN/Creat Ratio 13.2 RATIO (10-20); Chloride 105 mmol/L (98-107); Creatinine, Serum 0.53 mg/dL (0.55-1.02); EST Glomerular Filtration Rate 138 mL/min (>60); Est Glom Filt Rate - Afr Amer 167 mL/min (>60); Estimated Creatinine Clearance 162.44 ml/min; Glucose 90 mg/dL (74-106); Potassium 3.7 mmol/L (3.5-5.1); Sodium Level 139 mmol/L (136-145)
[2021-04-02 06:18] VITALS: BP 134/86; PULSE 72; RESP 18; TEMP 36.8; O2SAT 99
--- NOTE | 2021-04-02 07:23 | CON.PCM_ITS ---
Assessment & Plan Assessment/Plan (1) Cellulitis of left lower extremity: PLAN: I reviewed and discussed her case today. A 15 blade scalpel was used to debride the callus with potential superficial foreign body to the central metatarsal head region. 1 cc of purulent drainage was expressed and nurse was resolved after gently cleanse. Subcutaneous excisional debridement was performed with a 15 blade scalpel to excise devitalized subcutaneous tissue, biofilm, slough, and fibrous tissue. Pressure was applied to maintain hemostasis. She tolerated this well. The following work up and care recommendations were made: Dressing: Change daily with Betadine and gauze Infection work-up: After debridement and irrigation was performed, culture including aerobic, anaerobic, and MRSA PCR was obtained from the wound. Her white blood cell count went from 11 to 7 overnight. Most of her erythema has resolved overnight as well with rest and IV antibiotics (vancomycin). Her ESR is elevated at 67. I do not suspect deeper tissue involvement. I recommend monitoring her on IV antibiotics with potential transition to oral antibiotics prior to discharge home. She appears to be responding well so far. It is noted she is on IV vancomycin due to her history of MRSA. Her MRSA PCR is negative so far. Changing this to a different broad-spectrum may be warranted. I will continue to monitor her culture results. Operating room intervention is not planned at this time. Imagin left foot x-rays do not demonstrate any foreign body, soft tissue emphysema, fracture, dislocation, acute osseous destruction or changes noted. Additional diagnostic data: Dopplers negative for DVT Offload: To heel weight-bear with surgical shoe; ordered Vascular: She has palpable pulses Edema: To elevate limb at rest and to resume compression stockings Pain: Pain medication ordered Host factors: Her significant medical history of Sjogren's syndrome/rheumatoid arthritis/vasculitis is noted. She is trying to progress out of her prednisone regimen under the management of outpatient rheumatology. She was advised prednisone can slow wound healing and make her more prone to infections. Recommended nutritional supplementation to optimize her wound healing. I answered all the patient's questions. Thank you for the consultation. Please do not hesitate to call if you have any questions. Miora Bradley DPM, [facility] HPI Consult Data Date of Consult: 04/02/21 HPI Narrative HPI Narrative: This 35 year old pleasant female with a significant past medical history of Sjogren's syndrome, rheumatoid arthritis on chronic prednisone, narcolepsy, morbid obesity, posterior orthostatic tachycardia syndrome, and vasculitis presented to [facility] for left foot and leg intense redness. Onset was 2 to 3 days ago. She was referred from the local urgent center. Her pain level is moderate. She denies having any known foreign body however reports she does have a callus that builds up to the ball of her left foot. She noticed a rapid increase in erythema and very intense pain. She denies known drainage or odor. She does have a history of MRSA. She denies history of prev ious wound healing recurrence. It is noted she is taking chronic prednisone and she is having difficulty weaning off of this due to it inflammatory pain. She denies claudication. She was seen this morning and relates a significant reduction in pain and redness to her left limb overnight while resting and taking IV antibiotics. [facility] Medical History (Updated 04/01/21 @ 23:45 by Adia Moralez) Anemia Anxiety Chest pain Cholecystectomy planned Chronic pain CPAP (continuous positive airway pressure) dependence Depression GERD (gastroesophageal reflux disease) Migraines Narcolepsy Non-smoker POTS (postural orthostatic tachycardia syndrome) Rheumatoid arthritis Sjogrens syndrome Sleep apnea Vasculitis Home Medications Veramist 2 spray NASAL DAILY 12/13/15 [History Last Taken 04/01/21 16:00] cetirizine [Zyrtec] 10 mg PO DAILY 12/13/15 [History Last Taken 04/01/21 15:00] colesevelam [WelChol] 1,875 mg PO DAILY 12/13/15 [History Last Taken 03/31/21 19:00] pantoprazole 40 mg PO BID 12/13/15 [History Last Taken 03/31/21 21:00] albuterol sulfate [Ventolin HFA] 2 puff INHALATION Q4H PRN PRN #1 device 01/09/21 [Rx Last Taken 04/01/21 17:00] buprenorphine HCl [Belbuca] 300 mcg BUCCAL BID 01/09/21 [History Last Taken 03/31/21 22:30] escitalopram oxalate 20 mg PO DAILY 01/09/21 [History Last Taken 04/01/21 15:00] ferrous sulfate 325 mg PO QODAY 01/09/21 [History Last Taken 03/31/21 16:00] gabapentin 600 mg PO TID 01/09/21 [History Last Taken 03/31/21 22:00] prednisone 20 mg PO DAILY 01/09/21 [History Last Taken 04/01/21 15:00] sodium,calcium,mag,pot oxybate [Xywav] 2.25 g PO BID 01/09/21 [History Last Taken 03/31/21 00:00] sucralfate 1 g PO BID 01/09/21 [History Last Taken 04/01/21 13:00] Allergy/AdvReac Type Severity Reaction Status Date / Time dog dander Allergy Shortness Verified 04/01/21 18:21 of breath infliximab [From Remicade] Allergy Anaphylaxis Verified 04/01/21 18:21 pollen extracts Allergy Shortness Verified 04/01/21 18:21 of breath rituximab [From Rituxan] Allergy Anaphylaxis Verified 04/01/21 18:21 cephalexin AdvReac Nausea Verified 04/01/21 23:20 montelukast sodium AdvReac Unknown Verified 04/01/21 23:20 [From Singulair] sulfamethoxazole AdvReac Upset Verified 04/01/21 23:20 [From Bactrim] Stomach trimethoprim [From Bactrim] AdvReac Upset Verified 04/01/21 23:20 Stomach Family History Other Allergies Asthma Cancer Diabetes Heart disease Surgical History History of cholecystectomy History of tonsillectomy Social History Smoking Status: Never smoker ROS Constitutional Constitutional: Reports malaise; Denies chills or fever(s) Eyes Eyes: Denies numbness Cardiovascular Cardiovascular: Reports edema; Denies claudication Respiratory/Chest Respiratory/Chest: Denies cough Gastrointestinal Gastrointestinal: Denies nausea or vomiting Musculoskeletal Musculoskeletal: Denies stiffness Integumentary Integumentary: Reports wounds; Denies rash Hematologic/Lymphatic Hematologic/Lymphatic: Denies easy bleeding Physical Exam Const alert and oriented x3 General Appearance: cooperative HEENT normocephalic Extremity Extremity Narrative: No calf tenderness 2/4 pt and dp pulses, left foot Dorsal contraction of lesser toes of the left foot with prominent metatarsal heads No fluctuance bogginess or crepitus on palpation No palpable abscess Compartments of the left lower extremity remain soft. Mild bilateral lower extremity edema. Compression stocking noted to right lower extremity General Extremity: edema and no tenderness to palpation of joints or extremities; Negative for cyanosis Skin Skin Narrative: Upon callus, ulcer, potential superficial foreign body site debridement, 1 cc of purulent drainage was noted and this remains superficial. Erythema faint only to dorsal forefoot and this is resolved to the ankle and leg level as compared to initial evaluation in the emergency room per chart review No odor No lymphangitic streaking or lymphadenopathy Predebridement plantar left central metatarsal region: One by one by less than 1 mm. Post debridement: 5 x 5 x 2 mm with granular base General Skin Exam: Negative for erythema Neuro Neuro Narrative: Epicritic sensation is intact via light touch Psych cooperative and affect normal Lab / Micro Data Result Diagrams: 04/02/21 05:12 04/02/21 05:12 Labs: Laboratory Results - last 24 hr 04/01/21 18:55: WBC 11.0, RBC 5.38, Hgb 12.7, Hct 42.9, MCV 79.7 L, MCH 23.6 L, MCHC 29.6 L, RDW Std Deviation 52.1 H, RDW Coeff of Juan 18.0 H, Plt Count 328, MPV 9.1, Immature Gran % (Auto) 0.400, Neut % (Auto) 91.9 H, Lymph % (Auto) 5.5 L, Chambers % (Auto) 1.8, Eos % (Auto) 0.2, Baso % (Auto) 0.2, Absolute Neuts (auto) 10.1 H, Absolute Lymphs (auto) 0.60 L, Nucleated RBC % 0, Differential Comment , Platelet Estimate ADEQUATE, RBC Morphology NORM C+C, ESR 67 H 04/01/21 18:55: Sodium 137, Potassium 4.0, Chloride 106, Carbon Dioxide 26.0, Anion Gap 5, BUN 9, Creatinine 0.73, Estim Creat Clear Calc 117.93, Est GFR (MDRD) Af Amer 115, Est GFR (MDRD) Non-Af 95, BUN/Creatinine Ratio 12.3, Glucose 98, Calcium 9.2, Total Bilirubin 0.30, AST 24, ALT 48, Alkaline Phosphatase 191 H, C-React Prot Ext Range 9.91 H, Total Protein 8.9 H, Albumin 3.5, Globulin 5.4 H, Albumin/Globulin Ratio 0.6 L 04/01/21 18:55: Lactic Acid 2.4 H* 04/01/21 23:23: Lactic Acid 1.6 04/02/21 05:12: WBC 7.0, RBC 4.85, Hgb 11.4 L, Hct 38.7, MCV 79.8 L, MCH 23.5 L, MCHC 29.5 L, RDW Std Deviation 51.9 H, RDW Coeff of Juan 18.0 H, Plt Count 311, MPV 9.5, Immature Gran % (Auto) 0.400, Neut % (Auto) 75.3 H, Lymph % (Auto) 15.4 L, Chambers % (Auto) 8.4, Eos % (Auto) 0.4, Baso % (Auto) 0.1, Absolute Neuts (auto) 5.3, Absolute Lymphs (auto) 1.08, Nucleated RBC % 0 04/02/21 05:12: Sodium 139, Potassium 3.7, Chloride 105, Carbon Dioxide 27.0, Anion Gap 7, BUN 7, Creatinine 0.53 L, Estim Creat Clear Calc 162.44, Est GFR (MDRD) Af Amer 167, Est GFR (MDRD) Non-Af 138, BUN/Creatinine Ratio 13.2, Glucose 90, Calcium 9.0 Micro: Microbiology 04/01/21 19:05 Nasal Secretion SARS-CoV-2 Antigen (Rapid) - Final Radiology Impression Venous Duplex 04/01/21 18:54 IMPRESSION: Normal venous Doppler ultrasound of the lower extremity. Electronically Signed: Brigette Levi MD at 20:14 EDT Tel , Service support , Foot X-Ray 04/01/21 20:30 IMPRESSION: Soft tissue swelling of the foot without osseous or articular abnormality. Electronically Signed: Yordy Pineda DO at 21:04 EDT Tel [phone], Service support , Tibia/Fibula X-Ray 04/01/21 20:30 IMPRESSION: Soft tissue swelling without osseous or articular abnormality. Electronically Signed: Yordy Pineda DO at 21:57 EDT Tel [phone], Service support ,
--- NOTE | 2021-04-02 07:50 | WOUNDNOTE ---
wound photo: left plantar foot
[2021-04-02] MEDS: Fluticasone 0.05% 1 SPRAY NASAL.SRY 2 SPRAY NASAL (08:43)
[2021-04-02] MEDS: Escitalopram Oxalate 20 MG Tablet PO (08:44)
[2021-04-02] MEDS: Loratadine 10 MG Tablet PO (08:44)
[2021-04-02] MEDS: predniSONE 20 MG Tablet PO (08:44)
[2021-04-02] MEDS: Enoxaparin 40 MG/0.4 ML Syringe SC ×2 (08:44→22:32)
[2021-04-02 08:49] LABS: M R Staph aureus DNA By PCR Negative (Negative); Probe Check PASS; Specimen Processing Control PASS; Staph aureus DNA By PCR POSITIVE (Negative)
[2021-04-02 10:30] VITALS: BP 127/81; PULSE 72; RESP 16; TEMP 36.6; O2SAT 97
--- NOTE | 2021-04-02 11:05 | PN.HOSP_ITS ---
Documented by User: Anum Blake GROUNDS PERSON, GROUNDS PERSON-C 04/02/21 11:12 Subjective Subjective Patient seen and examined. Reports mild abdominal cramping which she associates with antibiotics. Reports left lower extremity redness and discomfort improving. Denies fever, chills. Objective Data Objective Data Vital Signs: Vital Signs Temp Pulse Resp BP Pulse Ox 97.9 F 72 16 127/81 H 97 04/02/21 10:30 04/02/21 10:30 04/02/21 10:30 04/02/21 10:30 04/02/21 10:30 Oxygen Delivery Method Room Air Weight: 334 lb Body Mass Index (BMI) 46.5 Intake & Output: Intake and Output for Last 24 Hours 03/31/21 04/01/21 04/02/21 23:59 23:59 23:59 Intake Total 1000 / 1200 1670 / 1670 Balance 1000 / 1200 1670 / 1670 Lab / Micro Data Result Diagrams: 04/02/21 05:12 04/02/21 05:12 Labs: Laboratory Results - last 24 hr 04/01/21 18:55: WBC 11.0, RBC 5.38, Hgb 12.7, Hct 42.9, MCV 79.7 L, MCH 23.6 L, MCHC 29.6 L, RDW Std Deviation 52.1 H, RDW Coeff of Juan 18.0 H, Plt Count 328, MPV 9.1, Immature Gran % (Auto) 0.400, Neut % (Auto) 91.9 H, Lymph % (Auto) 5.5 L, [place] % (Auto) 1.8, Eos % (Auto) 0.2, Baso % (Auto) 0.2, Absolute Neuts (auto) 10.1 H, Absolute Lymphs (auto) 0.60 L, Nucleated RBC % 0, Differential Comment , Platelet Estimate ADEQUATE, RBC Morphology NORM C+C, ESR 67 H 04/01/21 18:55: Sodium 137, Potassium 4.0, Chloride 106, Carbon Dioxide 26.0, Anion Gap 5, BUN 9, Creatinine 0.73, Estim Creat Clear Calc 117.93, Est GFR (MDRD) Af Amer 115, Est GFR (MDRD) Non-Af 95, BUN/Creatinine Ratio 12.3, Glucose 98, Calcium 9.2, Total Bilirubin 0.30, AST 24, ALT 48, Alkaline Phosphatase 191 H, C-React Prot Ext Range 9.91 H, Total Protein 8.9 H, Albumin 3.5, Globulin 5.4 H, Albumin/Globulin Ratio 0.6 L 04/01/21 18:55: Lactic Acid 2.4 H* 04/01/21 23:23: Lactic Acid 1.6 04/02/21 05:12: WBC 7.0, RBC 4.85, Hgb 11.4 L, Hct 38.7, MCV 79.8 L, MCH 23.5 L, MCHC 29.5 L, RDW Std Deviation 51.9 H, RDW Coeff of Juan 18.0 H, Plt Count 311, MPV 9.5, Immature Gran % (Auto) 0.400, Neut % (Auto) 75.3 H, Lymph % (Auto) 15.4 L, [place] % (Auto) 8.4, Eos % (Auto) 0.4, Baso % (Auto) 0.1, Absolute Neuts (auto) 5.3, Absolute Lymphs (auto) 1.08, Nucleated RBC % 0 04/02/21 05:12: Sodium 139, Potassium 3.7, Chloride 105, Carbon Dioxide 27.0, Anion Gap 7, BUN 7, Creatinine 0.53 L, Estim Creat Clear Calc 162.44, Est GFR (MDRD) Af Amer 167, Est GFR (MDRD) Non-Af 138, BUN/Creatinine Ratio 13.2, Glucose 90, Calcium 9.0 04/02/21 07:30: S.aureus Protein A PCR POSITIVE H, MRSA (PCR) Negative Micro: Microbiology 04/01/21 19:05 Nasal Secretion SARS-CoV-2 Antigen (Rapid) - Final Radiography Diagnostic Testing: Radiology Impression Venous Duplex 04/01/21 18:54 IMPRESSION: Normal venous Doppler ultrasound of the lower extremity. Electronically Signed: Brigette Levi MD at 20:14 EDT Tel , Service support , Foot X-Ray 04/01/21 20:30 IMPRESSION: Soft tissue swelling of the foot without osseous or articular abnormality. Electronically Signed: Yordy Pineda DO at 21:04 EDT Tel [phone], Service support , Tibia/Fibula X-Ray 04/01/21 20:30 IMPRESSION: Soft tissue swelling without osseous or articular abnormality. Electronically Signed: Yordy Pineda DO at 21:57 EDT Tel [phone], Service support , Physical Exam Const alert, oriented x3 and no apparent distress Orientation / Consciousness: awake, oriented to person, oriented to place and oriented to time Nutritional Appearance: obese HEENT normocephalic and moist oral mucous membranes Eyes PERRL, EOMs intact bilaterally and conjunctivae normal Neck no lymphadenopathy Resp normal respiratory effort and clear to auscultation bilaterally Cardio regular rate, regular rhythm and no murmurs Peripheral Pulses: pulses 2+ throughout GI normal to inspection, nondistended, normoactive bowel sounds, non-tender and non-distended Extremity normal to inspection Skin no rashes or lesions noted Skin Narrative: Left lower extremity erythema. Left foot dressing intact. Lesions: no lesions Rashes: no rashes Trauma: no lacerations or abrasions Neuro CN's II-XII intact bilaterally, no focal motor deficits, no sensory deficits noted and deep tendon reflexes 2+ bilaterally Psych mental status grossly normal and affect normal Assessment & Plan Assessment/Plan (1) Cellulitis of left lower extremity: PLAN: 1. Left lower extremity cellulitis-podiatry consulted. Left lower extremity heel callus debrided with small amount of purulence. Cultures pending. Continue dressing changes as ordered. On IV vancomycin. Sjogren's syndrome/rheumatoid arthritis/vasculitis-continue home prednisone regimen. Narcolepsy-on Xyvaw. Depression/anxiety-continue Lexapro. Chronic back pain-on gabapentin, buprenorphine. Chronic intermittent asthma/seasonal allergies-as needed albuterol inhaler, Zantac. GERD-continue PPI, Carafate. Morbid obesity- BMI 46.6. Encouraged diet and lifestyle modifications. DVT prophylaxis-Lovenox subcu This patient was seen by SULLY Stearns under the supervision of Dr. Mcmillan. Documented by User: Dr. Sonny Mcmillan MD 04/02/21 14:51 Objective Data Lab / Micro Data Result Diagrams: 04/02/21 05:12 04/02/21 05:12 Charges/Coding Addendum Addendum: Dr. Mcmillan: I personally reviewed the chart and examined the patient, and agree with the above findings. 35-year-old female with a history of narcolepsy, Sjogren's, vasculitis, rheumatoid arthritis presented to the hospital with left lower extremity cellulitis. She notes that she had a callus and some redness a few days ago and then on the day of admission she started having significant pain with walking so she went to an urgent care who recommended she present to the hospital. She has no leukocytosis and remains afebrile. Podiatry evaluated her and did not feel that she needed an OR at this time they did unroofed the callus and obtained a culture. We will continue with IV antibiotics for now pending improvement. Visit Charges Inpatient E&M: 93216 Subs Hosp L2
--- NOTE | 2021-04-02 11:35 | CASEMGMT ---
MIRZA VARELA Assessment: Face to Face with pt for initial transition planning/care coordination assessment. MIRZA VARELA introduced self and role at [facility], pt voices understanding and consents to assessment. Pt is A/O x4 and answers all questions appropriately at this time. Pt sitting up in bed with lunch tray in no distress. Care providers, pharmacy, and demographics verified/updated. Admitting Dx: cellulitis PCP: Alison Specialists: Phong, pain mgmt; Segun neuro Preferred Pharmacy: [facility] while inpatient Insurance: [employer] [facility], [facility] Prescription Benefit: yes LW/HPOA: Pt denies having a LW/DPOA. Pt states she would be interested in completing this while inpatient if possible. Notified Fausto SHARIF of this. LNOK: Dee Tam, stepmother; David Tam, father Living Arrangements: Pt lives with father and stepmother in a two story house with 3 steps to enter without a rail. Pt states she is usually I in ADL's but if she cannot do them one day, she skips it. Pt denies concerns at home. Transportation: Pt states her father usually transports her to medical appts but recently had shoulder surgery so he cannot drive now. Pt denies concerns with transportation. She states she can drive if she has to. DME/HHC/SNF: Pt has a medic alert, CPAP, cane and shower chair. Pt denies hx of HHC or SNF stays. Pt is disabled. She denies using cigarettes, alcohol, street drugs or illegal drugs. Pt states no concerns with going home at time of dc. Pt states no further concerns/needs. CM to follow. Advised pt to ask CM if any further question/concerns/needs arise, voices understanding. Pt Goal: Home Plan: Home, will follow and monitor for need for wound care.
[2021-04-02 15:20] VITALS: BP 125/78; PULSE 72; RESP 18; TEMP 36.5; O2SAT 97
[2021-04-02] MEDS: 0.9% Saline Lock 10 ML Syringe IV ×2 (15:30→18:00)
--- NOTE | 2021-04-02 16:09 | CASEMGMT ---
Social Work Note SW received referral for Advanced Directives. SW in to speak with pt. Pt states she is not sure who she would want to name to be her HCPOA as her mother a few years ago. SW informed pt that this worker can provide her with documents and once pt decides who she wants to name to be HCPOA, she can complete documents a later time. Pt states she would like to complete documents now, will change her POA later if needed. Pt completed Advanced Directives. Original provided to pt and copy placed on pt's chart. Pt denied additional needs or concerns at this time. Freida Moya [employer], [employer]
[2021-04-02] MEDS: Juven (unflavored) Packet 1 PACKET PO (17:00)
[2021-04-02] MEDS: Gabapentin 600 MG Tablet 1200 MG PO (18:00)
[2021-04-02 20:30] VITALS: BP 119/64; PULSE 80; RESP 16; TEMP 37.4; O2SAT 98
[2021-04-02] MEDS: DiphenhydrAMINE 25 MG Capsule PO (22:34)
[2021-04-02] MEDS: BUPRENORPHINE HCL 150 MCG FILM 300 MCG BUCCAL (22:38)
[2021-04-02 22:41] LABS: Vancomycin, Trough Level 16.7 ug/mL (5.0-15.0)
--- NOTE | 2021-04-03 00:17 | PCM.RX.CS ---
Consult Pharmacy has been consulted to manage selected antiobiotic: Vancomycin Type of Consult: Follow-up Labs: Sodium 139 mmol/L (136-145) 04/02/21 05:12 Potassium 3.7 mmol/L (3.5-5.1) 04/02/21 05:12 Chloride 105 mmol/L (98-107) 04/02/21 05:12 Carbon Dioxide 27.0 mmol/L (21.0-32.0) 04/02/21 05:12 Anion Gap 7 (5-15) 04/02/21 05:12 BUN 7 mg/dL (7-18) 04/02/21 05:12 Creatinine 0.53 mg/dL (0.55-1.02) L 04/02/21 05:12 Est GFR (MDRD) Af Amer 167 mL/min (>60) 04/02/21 05:12 Est GFR (MDRD) Non-Af 138 mL/min (>60) 04/02/21 05:12 BUN/Creatinine Ratio 13.2 RATIO (10-20) 04/02/21 05:12 Glucose 90 mg/dL (74-106) 04/02/21 05:12 Vancomycin Trough 16.7 ug/mL (5.0-15.0) H 04/02/21 21:30 Microbiology: Microbiology 04/02/21 07:30 Wound - Left Foot Gram Stain - Final 04/01/21 19:05 Nasal Secretion SARS-CoV-2 Antigen (Rapid) - Final Goal Trough: 15-20 mcg/mL Pharmacy Plan for Drug Dosing: Pharmacy Service will continue to monitor and adjust dosing as required. TROUGH 16.7 AT 6 HRS. NO CHANGES, FOLLOW UP TROUGH IN 2 DAYS Follow-Up Labs: Trough Vancomycin Labs to be done on [date and time ordered]: 04/04 @ 6341
[2021-04-03 02:30] VITALS: BP 129/70; PULSE 67; RESP 16; TEMP 36.7; O2SAT 98
[2021-04-03] MEDS: Sucralfate 1 GM Tablet PO (06:03)
--- NOTE | 2021-04-03 07:24 | PN_ITS ---
Subjective Subjective This 35-year-old female seen bedside this morning for follow-up of left lower extremity cellulitis with foot wound. She denies fever, chill, nausea, vomiting. Her pain is 9/10 not as intense at the time of admission however she does still moderate level pain. Objective Data Objective Data Vital Signs: Vital Signs Temp Pulse Resp BP Pulse Ox 98.1 F 67 16 129/70 H 98 04/03/21 02:30 04/03/21 02:30 04/03/21 02:30 04/03/21 02:30 04/03/21 02:30 Oxygen Delivery Method Room Air Weight: 151.5 kg Body Mass Index (BMI) 46.5 Intake & Output: Intake and Output for Last 24 Hours 04/01/21 04/02/21 04/03/21 23:59 23:59 23:59 Intake Total 1000 / 1200 3000 / 3000 930 / 930 Balance 1000 / 1200 3000 / 3000 930 / 930 Lab / Micro Data Result Diagrams: 04/02/21 05:12 04/02/21 05:12 Labs: Laboratory Results - last 24 hr 04/02/21 07:30: S.aureus Protein A PCR POSITIVE H, MRSA (PCR) Negative 04/02/21 21:30: Vancomycin Trough 16.7 H Micro: Microbiology 04/02/21 07:30 Wound - Left Foot Gram Stain - Final 04/01/21 19:05 Nasal Secretion SARS-CoV-2 Antigen (Rapid) - Final Physical Exam Const alert and oriented x3 General Appearance: cooperative HEENT normocephalic Extremity Extremity Narrative: No calf tenderness 2/4 pt and dp pulses, left foot Dorsal contraction of lesser toes of the left foot with prominent metatarsal heads No fluctuance bogginess or crepitus on palpation No palpable abscess Compartments of the left lower extremity remain soft. decreased bilateral lower extremity edema. Pain to palpate ulcer site No pain to palpate dorsal metatarsophalangeal joints or adjacent areas. General Extremity: edema and no tenderness to palpation of joints or extremities; Negative for cyanosis Skin Skin Narrative: no purulence on expression noted today Erythema resolved to foot and leg. Vasculitis type petechiae intermittent to bilateral lower extremities No odor No lymphangitic streaking or lymphadenopathy General Skin Exam: Negative for erythema Neuro Neuro Narrative: Epicritic sensation is intact via light touch Psych cooperative and affect normal Assessment & Plan Assessment/Plan (1) Cellulitis of left lower extremity: PLAN: I reviewed and discussed her case today. She is afebrile and her vital signs remained stable. The following work up and care recommendations were made: Dressing: Change daily with Betadine and gauze Infection work-up: She is responding well to IV vancomycin. Cultures reviewed without any bacterial growth noted so far. Her MRSA PCR is negative. Her blood cultures are negative so far. She is reassured her erythema and purulence have resolved. She is clinical improvement with downtrending white blood cell count. Offload: To heel weight-bear with surgical shoe; ordered Edema: To elevate limb at rest and to resume compression stockings Pain: Pain medication ordered; tramadol Host factors: Her significant medical history of Sjogren's syndrome/rheumatoid arthritis/vasculitis is noted. She is trying to progress out of her prednisone regimen under the management of outpatient rheumatology. She was advised prednisone can slow wound healing and make her more prone to infections. Recommended nutritional supplementation to optimize her wound healing. I answered all the patient's questions. Due to improvement, it appears it may be appropriate to transition her to the outpatient setting with oral antibiotics at this time. Reviewed with hospitalist; will be d/c on doxy. She can follow- up at the [facility] after discharge in one week. Please do not hesitate to call if you have any questions. Moira Bradley DPM, [facility]
[2021-04-03 07:38] VITALS: O2SAT 98
[2021-04-03 08:45] VITALS: BP 134/81; PULSE 73; RESP 16; TEMP 36.4; O2SAT 98
[2021-04-03] MEDS: 0.9% Saline Lock 10 ML Syringe IV (08:48)
[2021-04-03] MEDS: Fluticasone 0.05% 1 SPRAY NASAL.SRY 2 SPRAY NASAL (08:48)
[2021-04-03] MEDS: predniSONE 20 MG Tablet PO (08:49)
[2021-04-03] MEDS: Pantoprazole Sodium 40 MG Tablet PO (08:49)
[2021-04-03] MEDS: Juven (unflavored) Packet 1 PACKET PO (08:49)
[2021-04-03] MEDS: Loratadine 10 MG Tablet PO (08:49)
[2021-04-03] MEDS: Ferrous Sulfate 325 MG Tablet PO (08:49)
[2021-04-03] MEDS: Escitalopram Oxalate 20 MG Tablet PO (08:49)
[2021-04-03] MEDS: Enoxaparin 40 MG/0.4 ML Syringe SC (08:51)
[2021-04-03] MEDS: BUPRENORPHINE HCL 150 MCG FILM 300 MCG BUCCAL (09:04)
--- NOTE | 2021-04-03 09:36 | DCINST_ITS ---
Discharge Instructions Diet Discharge Diet: No restrictions and 2000 Calorie Control Diet Activity Discharge Activity: Return to Normal Activity Additional Activity Instructions:: To heel weight-bear with surgical shoe, elevate limb at rest and to resume compression stockings Dressing / Incision Call your doctor if your incision/area has: Continuous Slow Oozing, Sudden Increased Bleeding, Increased Pain/ Swelling, Increased Redness, Foul Smelling Discharge and Swelling at the incision site Call your doctor if you observe: Fever of 101 or Higher, Shortness of breath, Dizziness and Chest pain Follow Up Care Test Results: Test results from this visit will be discussed in further detail at your follow-up appointment, if applicable. Discharge Plan Admission Admit Date/Time: 04/01/21 22:05 Primary Reason for Your Visit: Cellulitis Attending Provider: Sonny Mcmillan Primary Care Provider: Almaz Rosas Consulting Providers: Moira Bradley Instructions Additional Instructions / Restrictions: Change her dressing daily with Betadine gauze, Kerlix, and Paddy wrap. Do not soak your foot. Wash foot with antibacterial soap and water with each dressing change. Elevate left lower extremity at rest. Heel weightbearing surgical shoe to keep pressure off of her ulcer site. Use cane for assistance. Follow-up with vehicle fuel systems converter to continue with prednisone adjustments. Discharge Orders/Prescriptions Prescriptions: New acidophilus-pectin, citrus 25 million cell -100 mg Tablet 2 tab PO BID 14 Days Qty: 56 RF: 0 doxycycline hyclate 100 mg tablet 100 mg PO BID Qty: 12 RF: 0 Continued colesevelam [WelChol] 625 MG tablet 1,875 mg PO DAILY RF: 0 pantoprazole 40 MG tablet 40 mg PO BID RF: 0 Zyrtec 10 MG capsule 10 mg PO DAILY RF: 0 Veramist 2 spray NASAL DAILY RF: 0 gabapentin 600 mg tablet 600 mg PO TID RF: 0 sucralfate 1 gram tablet 1 g PO BID RF: 0 ferrous sulfate 325 mg (65 mg iron) tablet 325 mg PO QODAY RF: 0 escitalopram oxalate 20 mg tablet 20 mg PO DAILY RF: 0 buprenorphine HCl [Belbuca] 300 mcg film 300 mcg BUCCAL BID RF: 0 prednisone 20 mg Tablet 20 mg PO DAILY RF: 0 Xywav 0.5 gram/mL Solution 2.25 g PO BID RF: 0 albuterol sulfate [Ventolin HFA] 90 mcg/actuation HFA aerosol inhaler 2 puff inhalation Q4H PRN PRN (Reason: Wheezing) Qty: 1 RF: 0 Referrals / Follow Up: Moira Bradley DPM [STAFF PHYSICIAN] - In 1 Week Almaz Rosas MD [Primary Care Provider] - In 1 Week Disposition Disposition (needs filled in before D/C Order can be placed): Home, Self Care
--- NOTE | 2021-04-03 09:52 | PCM.DC.SUM ---
Providers Date of Admission: 04/01/21 Date of Discharge: 04/03/21 Primary Care Physician: Dr. Almaz Rosas MD Consultations 04/01/21 23:14 Consult: Podiatry Routine Consulting Provider: Moira Bradley Reason for Consult: Possible foreign body EMERGENT Consult: No MD Notified: Yes Date Notified: 04/02/21 Time Notified: 06:35 Method of Notification: Verbal Reason For Visit: CELLULITIS Diagnosis Discharge Diagnosis (1) Cellulitis of left lower extremity: Status: Acute Code(s): L03.116 - Cellulitis of left lower limb Medications at Discharge Home Medications Veramist 2 spray NASAL DAILY 12/13/15 Zyrtec 10 mg PO DAILY 12/13/15 colesevelam [WelChol] 1,875 mg PO DAILY 12/13/15 pantoprazole 40 mg PO BID 12/13/15 Xywav 2.25 g PO BID 01/09/21 albuterol sulfate [Ventolin HFA] 2 puff INHALATION Q4H PRN PRN #1 device 01/09/21 buprenorphine HCl [Belbuca] 300 mcg BUCCAL BID 01/09/21 escitalopram oxalate 20 mg PO DAILY 01/09/21 ferrous sulfate 325 mg PO QODAY 01/09/21 gabapentin 600 mg PO TID 01/09/21 prednisone 20 mg PO DAILY 01/09/21 sucralfate 1 g PO BID 01/09/21 acidophilus-pectin, citrus 2 tab PO BID 14 Days #56 tab 04/03/21 doxycycline hyclate 100 mg PO BID #12 tab 04/03/21 Hospital Course Operations None Procedures None Summary of Care Provided Minutes Spent on Discharge: 35 Hospital Course: Patient is a 35-year-old female admitted 04/01/2021 due to left lower extremity cellulitis. 1. Left lower extremity cellulitis-podiatry consulted. Left lower extremity heel callus debrided with small amount of purulence. Cultures pending. IV vancomycin during admission. MSSA positive, MRSA negative. Allergy to Keflex, Bactrim. Discharged on doxycycline to complete course. Follow-up with podiatry in 1 week. 2. Sjogren's syndrome/rheumatoid arthritis/vasculitis-continue home prednisone regimen. 3. Narcolepsy-on Xyvaw. 4. Depression/anxiety-continue Lexapro. 5. Chronic back pain-on gabapentin, buprenorphine. 6. Chronic intermittent asthma/seasonal allergies-as needed albuterol inhaler, Zantac. 7. GERD-continue PPI, Carafate. 8. Morbid obesity- BMI 46.6. Encouraged diet and lifestyle modifications. Physical Exam Const alert, oriented x3 and no apparent distress Orientation / Consciousness: awake, oriented to person, oriented to place and oriented to time Nutritional Appearance: obese HEENT normocephalic and moist oral mucous membranes Eyes PERRL, EOMs intact bilaterally and conjunctivae normal Neck no lymphadenopathy Resp normal respiratory effort and clear to auscultation bilaterally Cardio regular rate, regular rhythm and no murmurs Peripheral Pulses: pulses 2+ throughout GI normal to inspection, nondistended, normoactive bowel sounds, non-tender and non-distended Extremity normal to inspection Skin no rashes or lesions noted Skin Narrative: Left lower extremity erythema, improved. Left foot dressing intact. Lesions: no lesions Rashes: no rashes Trauma: no lacerations or abrasions Neuro CN's II-XII intact bilaterally, no focal motor deficits, no sensory deficits noted and deep tendon reflexes 2+ bilaterally Psych mental status grossly normal and affect normal Patient seen and examined prior to discharge. Physical assessment as noted above. Patient is stable for discharge with follow up recommendations as noted above. This patient was seen by SULLY Stearns under the supervision of Dr. Mcmillan. Weight / BMI Weight Weight: 334 lb 0.005 oz Body Mass Index (BMI) 46.5 ABG / Lab / Microbiology Data Result Diagrams: 04/02/21 05:12 04/02/21 05:12 Laboratory: Laboratory Results - last 24 hr 04/02/21 21:30: Vancomycin Trough 16.7 H Microbiology: Microbiology 04/02/21 07:30 Wound - Left Foot Gram Stain - Final 04/01/21 19:05 Nasal Secretion SARS-CoV-2 Antigen (Rapid) - Final D/C Instructions Discharge Diet: No restrictions and 2000 Calorie Control Diet Additional Activity Instructions: To heel weight-bear with surgical shoe, elevate limb at rest and to resume compression stockings Call your doctor if your incision/area has: Continuous Slow Oozing, Sudden Increased Bleeding, Increased Pain/ Swelling, Increased Redness, Foul Smelling Discharge and Swelling at the incision site Call your doctor if you observe: Fever of 101 or Higher, Shortness of breath, Dizziness and Chest pain Meaningful Use Info Meaningful Use Diagnoses (Choose all that apply): None applicable Discharge Plan Admission Admit Date/Time: 04/01/21 22:05 Primary Reason for Your Visit: Cellulitis Attending Provider: Sonny Mcmillan Primary Care Provider: Almaz Rosas Consulting Providers: Moira Bradley Instructions Additional Instructions / Restrictions: Change her dressing daily with Betadine gauze, Kerlix, and Paddy wrap. Do not soak your foot. Wash foot with antibacterial soap and water with each dressing change. Elevate left lower extremity at rest. Heel weightbearing surgical shoe to keep pressure off of her ulcer site. Use cane for assistance. Follow-up with client sales and service officer to continue with prednisone adjustments. Discharge Orders/Prescriptions Prescriptions: New acidophilus-pectin, citrus 25 million cell -100 mg Tablet 2 tab PO BID 14 Days Qty: 56 RF: 0 doxycycline hyclate 100 mg tablet 100 mg PO BID Qty: 12 RF: 0 Continued colesevelam [WelChol] 625 MG tablet 1,875 mg PO DAILY RF: 0 pantoprazole 40 MG tablet 40 mg PO BID RF: 0 Zyrtec 10 MG capsule 10 mg PO DAILY RF: 0 Veramist 2 spray NASAL DAILY RF: 0 gabapentin 600 mg tablet 600 mg PO TID RF: 0 sucralfate 1 gram tablet 1 g PO BID RF: 0 ferrous sulfate 325 mg (65 mg iron) tablet 325 mg PO QODAY RF: 0 escitalopram oxalate 20 mg tablet 20 mg PO DAILY RF: 0 buprenorphine HCl [Belbuca] 300 mcg film 300 mcg BUCCAL BID RF: 0 prednisone 20 mg Tablet 20 mg PO DAILY RF: 0 Xywav 0.5 gram/mL Solution 2.25 g PO BID RF: 0 albuterol sulfate [Ventolin HFA] 90 mcg/actuation HFA aerosol inhaler 2 puff inhalation Q4H PRN PRN (Reason: Wheezing) Qty: 1 RF: 0 Referrals / Follow Up: Moira Bradley DPM [STAFF PHYSICIAN] - In 1 Week Almaz Rosas MD [Primary Care Provider] - In 1 Week Disposition Disposition (needs filled in before D/C Order can be placed): Home, Self Care
[2021-04-03 12:30] VITALS: BP 145/88; PULSE 80; RESP 16; TEMP 37.1; O2SAT 96
--- NOTE | 2021-04-03 12:31 | PHA.DC.MC ---
Pharmacy Service has performed discharge medication reconciliation and counseling for this patient. 1. DOXYCYCLINE 100MG PO BID X 6 DAYS 2. ACIDOPHILUS 2T PO BID The patient's discharge medication list was reviewed for discrepancies and discrepancies were resolved. Home Medications Veramist 2 spray NASAL DAILY 12/13/15 Zyrtec 10 mg PO DAILY 12/13/15 colesevelam [WelChol] 1,875 mg PO DAILY 12/13/15 pantoprazole 40 mg PO BID 12/13/15 Xywav 2.25 g PO BID 01/09/21 albuterol sulfate [Ventolin HFA] 2 puff INHALATION Q4H PRN PRN #1 device 01/09/21 buprenorphine HCl [Belbuca] 300 mcg BUCCAL BID 01/09/21 escitalopram oxalate 20 mg PO DAILY 01/09/21 ferrous sulfate 325 mg PO QODAY 01/09/21 gabapentin 600 mg PO TID 01/09/21 prednisone 20 mg PO DAILY 01/09/21 sucralfate 1 g PO BID 01/09/21 acidophilus-pectin, citrus 2 tab PO BID 14 Days #56 tab 04/03/21 doxycycline hyclate 100 mg PO BID #12 tab 04/03/21 The patient was counseled on the following discharge medications and changes in medications for homegoing were reviewed. The Reason for Use, instructions for use, and potential side effects were reviewed for all new medications. The patient's questions regarding all of their medications were answered. The patient was able to verbally demonstrate an understanding of their discharge medications.
--- NOTE | 2021-04-04 14:47 | CASEMGMT ---
MIRZA VARELA Discharge Follow Up Phone Call: KIARRA: Cari Strata: 3 Call Date: 04/04/21 Discharge Date: 04/03/21 Time of Call:[id number] Duration: 3 min Admitting Dx: cellulitis MIRZA VARELA completed follow up phone call after recent hospitalization. Pt states she is doing well. She is trying to rest. States she is having pain on the bottom of her foot but that she was told this is to be expected. She states she is able to perform the dressing change without difficulty. Pt has an appt set up on 04/[address] Bradley at 1pm. She has an appt with on 04/16 but needs to reschedule it as she has a schedule conflict. Pt was able to picker tender helper her rx without difficulty. She states when she took the first antibiotic her stomach had a hot flash and nausea. She states she took on an empty stomach per the bottle. Made her aware she could try with a couple of crackers to see if this helps alleviate the nausea. Pt denied further questions regarding her dc instructions or medications.
== END 2021-04-03 12:45 | disposition home or self-care (01) | DRG 571 ==
LOC: ED 19:53 → MS3 22:30
PROVIDERS: Podiatrist; Admitting Provider Hospitalist; Emergency Provider Student in an Organized Health Care Education/Training Program; PCP Internal Medicine; Visit Provider Family Medicine
DX: L03.116 Cellulitis of left lower limb (principal); Z68.42 Body mass index [BMI] 45.0-49.9, adult; E87.2 Acidosis; S91.332A Puncture wound without foreign body, left foot, initial encounter; B95.61 Methicillin susceptible Staphylococcus aureus infection as the cause of diseases classified elsewhere; X58.XXXA Exposure to other specified factors, initial encounter; Y93.9 Activity, unspecified; Y92.9 Unspecified place or not applicable; R10.9 Unspecified abdominal pain; E66.01 Morbid (severe) obesity due to excess calories; F32.A Depression, unspecified; F41.9 Anxiety disorder, unspecified; G43.909 Migraine, unspecified, not intractable, without status migrainosus; G47.30 Sleep apnea, unspecified; D64.9 Anemia, unspecified; G47.419 Narcolepsy without cataplexy; G89.29 Other chronic pain; J45.20 Mild intermittent asthma, uncomplicated; K21.9 Gastro-esophageal reflux disease without esophagitis; I49.8 Other specified cardiac arrhythmias; M06.9 Rheumatoid arthritis, unspecified; M35.0B Sjogren syndrome with vasculitis; Z86.14 Personal history of Methicillin resistant Staphylococcus aureus infection; Z79.899 Other long term (current) drug therapy
CPT/HCPCS: 36415; 73590; 73630; 80048; 80053; 80202; 83605; 85025; 85652; 86140; 87040; 87070; 87075; 87077; 87186; 87205; 87426; 87640; 93971; 97802; 99285; J7030; J7040; J7050; A4216

== ENCOUNTER → 2022-01-29 | Outpatient (CLI) | payer MEDICARE, MEDICAID, SELFPAY ==
[2022-01-29 14:52] LABS: BUP Internal Control LINE = VALID (VALID); Buprenorphine Drug Screen Positive (<10 ng/mL)
[2022-01-29 14:57] LABS: Amphetamine Urine VISTA NEGATIVE (<1000 ng/mL); Barbiturate Urine VISTA NEGATIVE (< 200 ng/mL); Benzodiazepine Urine VISTA NEGATIVE (< 200 ng/mL); Cocaine Urine VISTA NEGATIVE (< 300 ng/mL); Ecstacy Urine VISTA NEGATIVE (< 500 ng/mL); Methadone Urine VISTA NEGATIVE (< 300 ng/mL); PCP Urine VISTA NEGATIVE (< 25 ng/mL); THC Urine VISTA NEGATIVE (< 50 ng/mL); Vista UDS pH Range 5
== END | disposition home or self-care (01) ==
LOC: LAB 13:19
PROVIDERS: PCP Internal Medicine; Referring Provider Anesthesiology Pain Medicine; Visit Provider Anesthesiology Pain Medicine
DX: F11.20 Opioid dependence, uncomplicated (principal)
CPT/HCPCS: 80307

== ENCOUNTER → 2022-03-06 | Outpatient (CLI) | payer MEDICARE, MEDICAID, SELFPAY ==
--- NOTE | 2022-03-06 14:40 | RAD_ITS ---
STUDY: X-RAY - PELVIS AND RIGHT HIP REASON FOR EXAM: Female, 36 years old. RIGHT HIP OA TECHNIQUE: XR Hip Unilateral with Pelvis when performed; 2-3 Views COMPARISON: None. FINDINGS: There is a non-specific bowel gas pattern. Normal visualized soft tissue structures. Normal bilateral iliac wings, sacroiliac joints and visualized sacrum. Normal bilateral superior and inferior pubic rami. Normal pubic symphysis. Normal bilateral ischial tuberosities. Normal visualized femoral head. Normal acetabulum. Normal hip joint. RAD/HIP, UNI W/ Pelvis 2-3 Views IMPRESSION: No acute findings. Electronically Signed: David Rodriguez MD at 17:36 EDT ,
[2022-03-06 15:39] LABS: Ferritin 31 ng/mL (8-252); Iron 179 ug/dL (50-170); Iron Binding Capacity,Total 339 ug/dL (250-450)
== END | disposition home or self-care (01) ==
PROVIDERS: PCP Internal Medicine; Visit Provider Anesthesiology Pain Medicine
DX: M16.11 Unilateral primary osteoarthritis, right hip (principal); D64.9 Anemia, unspecified
CPT/HCPCS: 36415; 73502; 82728; 83540; 83550

== ENCOUNTER → 2022-04-03 | Outpatient (CLI) | payer MEDICARE, MEDICAID, SELFPAY ==
--- NOTE | 2022-04-03 14:15 | RAD_ITS ---
INDICATION: FOOT TRAUMA EXAMINATION/TECHNIQUE: X-RAY - RIGHT XR Foot Min 3 Views 3 VIEWS COMPARISON: None. FINDINGS: SOFT TISSUES: Dorsal soft tissue swelling is noted. No radiopaque foreign body. BONES/JOINTS: No acute fracture or subluxation.. Normal alignment. Preservation of the joint space.. No sclerotic or destructive changes observed. RAD/Foot min 3 Views IMPRESSION: 1. Dorsal soft tissue swelling. 2. No evidence of fractures, dislocation or focal bony or joint space abnormality. Electronically Signed: Corey Bartlett MD at 23:14 EDT ,
== END | disposition home or self-care (01) ==
LOC: RAD 14:00
PROVIDERS: PCP Internal Medicine; Referring Provider Anesthesiology Pain Medicine; Visit Provider Anesthesiology Pain Medicine
DX: S99.921A Unspecified injury of right foot, initial encounter (principal)
CPT/HCPCS: 73630

== ENCOUNTER 2022-04-29 15:42 | Emergency (ER) | payer MEDICARE, MEDICAID, SELFPAY ==
[2022-04-29 15:43] VITALS: BP 134/106; PULSE 98; RESP 18; TEMP 35.9; O2SAT 99; BMI 53.4
--- NOTE | 2022-04-29 16:08 | VDLE_ITS ---
Reason For Study: pain Procedure LEFT This is a venous duplex using B-mode, color GSV is normal. flow and spectral Doppler. CFV is compressible, spontaneous, phasic, Exam performed portable in ED. competent, and demonstrates normal The exam was abbreviated due to the COVID 19 augmentation. protocol. FV is compressible, spontaneous, phasic, The exam was diagnostic. competent and demonstrates normal A preliminary report was called and/or faxed augmentation. to Dr. Fregoso. POP V is compressible, spontaneous, phasic, competent and demonstrates normal augmentation. T/P Trunk is compressible. PTV is compressible. LT PerV is compressible. VL/Venous Duplex US, Unilateral Interpretation Summary Deep veins of the left lower extremity are patent and compressible segmentally. There is no evidence of left lower extremity deep vein thrombosis. The left great saphenous vein adryan ears patent and compressible segmentally. Ordering Physician: Kevin Fregoso Performed By: Fernando Miller RVT
--- NOTE | 2022-04-29 16:19 | EDS_ITS ---
HPI History of Present Illness HPI Narrative: Patient presents with pain and discoloration to her left lower leg that has been getting worse over the last week. Patient noted some bruising and redness to her lower legs, worse on the left. Patient went to urgent care today and stated that they noted some tenderness in her left popliteal area. Patient states she was then referred to the emergency department. Patient describes her pain as sharp and pressure. Patient states it is worse whenever she bends her knee. Patient states nothing makes it better. Patient denies any paresthesias or weakness. Chief Complaint: Lower Extremity Injury Informant: patient Onset/Context/Timing Onset: Weeks (1) Context: Sudden Onset Timing: Continuous Quality of Pain: Sharp and - (Pressure) Location: Left leg Worsened by: Bending left knee Relieved by: Nothing PFSH PFSH Medical History Anemia Anxiety Chest pain Cholecystectomy planned Chronic pain CPAP (continuous positive airway pressure) dependence Depression GERD (gastroesophageal reflux disease) Migraines Narcolepsy Non-smoker POTS (postural orthostatic tachycardia syndrome) Rheumatoid arthritis Sjogrens syndrome Sleep apnea Vasculitis Home Medications Veramist 2 spray DAILY allergies 12/13/15 [History Last Taken 04/01/21 16:00] cetirizine 10 mg capsule (Zyrtec) 10 mg PO DAILY allergies 12/13/15 [History Last Taken 04/01/21 15:00] colesevelam 625 mg tablet (WelChol) 1,875 mg PO DAILY removes bile 12/13/15 [History Last Taken 03/31/21 19:00] pantoprazole 40 mg tablet,delayed release 40 mg PO BID stomach 12/13/15 [History Last Taken 03/31/21 21:00] albuterol sulfate 90 mcg/actuation aerosol inhaler (Ventolin HFA) 2 puff inhalation Q4H PRN PRN Wheezing #1 device 01/09/21 [Rx Last Taken 04/01/21 17:00] buprenorphine HCl 300 mcg buccal film (Belbuca) 300 mcg buccal BID pain 01/09/21 [History Last Taken 03/31/21 22:30] escitalopram oxalate 20 mg tablet 20 mg PO DAILY anxiety 01/09/21 [History Last Taken 04/01/21 15:00] ferrous sulfate 325 mg (65 mg iron) tablet 325 mg PO QODAY supplement 01/09/21 [History Last Taken 03/31/21 16:00] gabapentin 600 mg tablet 600 mg PO TID restless legs 01/09/21 [History Last Taken 03/31/21 22:00] prednisone 20 mg tablet 20 mg PO DAILY inflammation 01/09/21 [History Last Taken 04/01/21 15:00] sodium, calcium, magnesium, potassium oxybates 0.5 gram/mL oral soln (Xywav) 2.25 g PO BID narcolepsy 01/09/21 [History Last Taken 03/31/21 00:00] sucralfate 1 gram tablet 1 g PO BID stomach 01/09/21 [History Last Taken 04/01/21 13:00] acidophilus 25 million cell-pectin, citrus 100 mg tablet 2 tab PO BID 14 days #56 tabs 04/03/21 [Rx Last Taken Unknown] doxycycline hyclate 100 mg tablet 100 mg PO BID #12 tabs 04/03/21 [Rx Last Taken Unknown] Allergy/AdvReac Type Severity Reaction Status Date / Time dog dander Allergy Shortness Verified 04/29/22 15:43 of breath infliximab [From Remicade] Allergy Anaphylaxis Verified 04/29/22 15:43 pollen extracts Allergy Shortness Verified 04/29/22 15:43 of breath rituximab [From Rituxan] Allergy Anaphylaxis Verified 04/29/22 15:43 cephalexin AdvReac Nausea Verified 04/29/22 15:43 montelukast sodium AdvReac Unknown Verified 04/29/22 15:43 [From Singulair] sulfamethoxazole AdvReac Upset Verified 04/29/22 15:43 [From Bactrim] Stomach trimethoprim [From Bactrim] AdvReac Upset Verified 04/29/22 15:43 Stomach Family History Other Allergies Asthma Cancer Diabetes Heart disease Surgical History History of cholecystectomy History of tonsillectomy Social History Smoking Status: Never smoker ROS ROS ED Constitutional Constitutional ED: Reports chills, fever(s) and subjective Eyes Eyes: Denies blurry vision or change in vision ENT ENT ED: Denies rhinorrhea or sore throat Cardiovascular Cardiovascular: Denies chest pain or palpitations Respiratory/Chest Respiratory/Chest: Reports dyspnea; Denies cough Gastrointestinal Gastrointestinal: Denies nausea or vomiting Genitourinary Genitourinary ED: Denies dysuria or hematuria Musculoskeletal Musculoskeletal: Reports back pain; Denies neck pain Integumentary Reports rash; Denies abscess Neurologic Neurologic: Denies headache(s) or weakness Allergic/Immunologic Allergic/Immunologic ED: Denies mouth swelling or urticaria EXAM Physical Exam Const Vital Signs: 04/29/22 15:43 Temperature 96.6 F L Temperature Source Temporal Pulse Rate 98 Respiratory Rate 18 Blood Pressure 134/106 H Blood Pressure Mean 115 Pulse Ox 99 Oxygen Delivery Method Room Air Positive well nourished, well developed and obese General Appearance ED: well developed and NAD Nutritional Appearance: obese HEENT Reports moist mucous membranes Extremity Extremity Narrative: There is tenderness, ecchymosis, and mild erythema of the lower legs bilaterally, slightly worse on the left. There is tenderness over the left popliteal area. There is no tenderness on the right. There is no bony crepitance or step-off. There is good range of motion. There is no laxity appreciated. Sensation was intact to light touch bilaterally in the lower extremities. Strength is 5/5 bilaterally in the lower extremities. Pedal pulses are equal bilaterally. Neuro oriented x3, CN's II-XII intact bilaterally, moves all extremities and no sensory deficits noted Sensorium / Orientation: alert Motor Exam: strength 5/5 throughout Psych mental status grossly normal Skin no wounds MDM MDM MDM Narrative Medical decision making narrative: Venous duplex of the left lower extremity was obtained. There is no evidence of DVT. CBC was within normal limits. PT with INR and PTT were within normal limits. Comprehensive metabolic profile was essentially within normal limits. Patient was advised of her findings. Patient was instructed to keep her legs elevated. Patient was instructed to take Tylenol or ibuprofen as needed for any pain. Patient was instructed to follow-up with her primary care physician in 5 to 7 days. Patient understood and was agreeable with the plan. All questions were answered. Lab Data Attestation: I reviewed the patient's lab results. Labs: Laboratory Results - last 24 hr 04/29/22 04/29/22 04/29/22 17:05 17:05 17:05 WBC 6.0 RBC 4.93 Hgb 12.6 Hct 40.9 MCV 83.0 MCH 25.6 L MCHC 30.8 L RDW Std Deviation 47.0 H RDW Coeff of Juan 15.6 H Plt Count 237 MPV 9.4 Immature Gran % (Auto) 0.700 Neut % (Auto) 77.7 H Lymph % (Auto) 11.9 L [place] % (Auto) 6.4 Eos % (Auto) 3.0 Baso % (Auto) 0.3 Absolute Neuts (auto) 4.6 Absolute Lymphs (auto) 0.71 L Nucleated RBC % 0 PT 13.3 INR 1.0 APTT 27.9 Sodium 138 Potassium 3.6 Chloride 106 Carbon Dioxide 25.0 Anion Gap 7 BUN 6 L Creatinine 0.65 Estim Creat Clear Calc 131.16 Est GFR (MDRD) Af Amer 131 Est GFR (MDRD) Non-Af 108 BUN/Creatinine Ratio 9.2 L Glucose 122 H Calcium 8.7 Total Bilirubin 0.60 AST 80 H ALT 68 H Alkaline Phosphatase 162 H Total Protein 6.9 Albumin 3.1 L Globulin 3.8 Albumin/Globulin Ratio 0.8 L Radiography Diagnostic Testing: Clinical Impression(s) from Imaging Studies Venous Doppler Study 04/29/22 16:08 Interpretation Summary Deep veins of the left lower extremity are patent and compressible segmentally. There is no evidence of left lower extremity deep vein thrombosis. The left great saphenous vein appears patent and compressible segmentally. Ordering Physician: Kevin Fregoso Performed By: Fernando Miller RVT Discharge Plan Triage Chief Complaint: Lower Extremity Injury ED Provider: Kevin Fregoso Dx/Rx/DC Orders Clinical Impression: Bilateral lower extremity edema, Ecchymosis Instructions: ED Peripheral Edema, Bilateral Prescriptions: No Action colesevelam [WelChol] 625 MG tablet 1,875 mg PO DAILY pantoprazole 40 MG tablet 40 mg PO BID Zyrtec 10 MG capsule 10 mg PO DAILY Veramist 2 spray NASAL DAILY gabapentin 600 mg tablet 600 mg PO TID Label Comments: TAKE 1 TABLET BY MOUTH THREE TIMES DAILY FOR RESTLESS LEG SYNDROM sucralfate 1 gram tablet 1 g PO BID Label Comments: TAKE 1 TABLET BY MOUTH BEFORE MEALS AND AT BEDTIME. ferrous sulfate 325 mg (65 mg iron) tablet 325 mg PO QODAY Label Comments: TAKE 1 TABLET BY MOUTH EVERY OTHER DAY escitalopram oxalate 20 mg tablet 20 mg PO DAILY Label Comments: TAKE 1 TABLET BY MOUTH EVERY DAY buprenorphine HCl [Belbuca] 300 mcg film 300 mcg BUCCAL BID Label Comments: DISSOLVE ON TONGUE 2 TIMES A DAY FOR 28 DAYS prednisone 20 mg Tablet 20 mg PO DAILY Xywav 0.5 gram/mL Solution 2.25 g PO BID albuterol sulfate [Ventolin HFA] 90 mcg/actuation HFA aerosol inhaler 2 puff inhalation Q4H PRN PRN (Reason: Wheezing) Qty: 1 0RF acidophilus-pectin, citrus 25 million cell -100 mg Tablet 2 tab PO BID 14 Days Qty: 56 0RF doxycycline hyclate 100 mg tablet 100 mg PO BID Qty: 12 0RF Primary Care Provider: Almaz Rosas Referrals: Almaz Rosas MD [Primary Care Provider] - 5-7 Days Disposition Disposition: Home, Self Care
[2022-04-29 17:18] LABS: Absolute Lymphocyte Count 0.71 X10^3/uL (0.83-4.51); Absolute Neutrophil Count 4.6 X10^3/uL (2.0-7.7); Basophil# 0.02 X10^3/uL; Basophil% 0.3 % (0-1); Eosinophil# 0.18 X10^3/uL; Hematocrit 40.9 % (37-47); Hemoglobin 12.6 g/dL (12.0-15.0); Lymphocyte # 0.71 X10^3/ul (0.83-4.51); Lymphocyte % 11.9 % (19-41); Mean Corp Hgb Conc 30.8 g/dL (32-36); Mean Corpuscular Hgb 25.6 pg (27.0-32.0); Mean Platelet Vol. 9.4 fl (6.2-12.0); Monocyte# 0.38 X10^3/uL; Monocyte% 6.4 % (0-10); NRBC Flagged by Analyzer 0 % (0-5); Neutrophil # 4.64 X10^3/uL (2.7-7.7); Neutrophil % 77.7 % (47-70); Platelet Count 237 K/mm3 (150-450); RBC Distribution Width CV 15.6 % (11.6-14.6); Red Blood Count 4.93 M/mm3 (4.2-5.4)
[2022-04-29 17:24] LABS: Prothrombin Time (Protime)PT. 13.3 SECONDS (11.7-14.9)
[2022-04-29 17:25] LABS: Partial Thromboplast Time 27.9 Seconds (24.1-36.2)
[2022-04-29 17:58] LABS: ALB/GLOB Ratio 0.8 RATIO (0.9-2.4); AST(SGOT) 80 U/L (15-37); Alanine Aminotransfer ALT/SGPT 68 U/L (13-56); Albumin, Serum 3.1 g/dL (3.2-5.0); Alkaline Phosphatase 162 U/L (45-117); Anion Gap 7 (5-15); BUN 6 mg/dL (7-18); BUN/Creat Ratio 9.2 RATIO (10-20); Calcium,Total 8.7 mg/dL (8.5-10.1); Chloride 106 mmol/L (98-107); Creatinine, Serum 0.65 mg/dL (0.55-1.02); EST Glomerular Filtration Rate 108 mL/min (>60); Est Glom Filt Rate - Afr Amer 131 mL/min (>60); Estimated Creatinine Clearance 131.16 ml/min; Globulin 3.8 g/dL (2.2-4.2); Glucose 122 mg/dL (74-106); Potassium 3.6 mmol/L (3.5-5.1); Protein, Total 6.9 g/dL (6.4-8.2); Sodium Level 138 mmol/L (136-145)
== END 2022-04-29 18:28 | disposition home or self-care (01) ==
PROVIDERS: Emergency Provider Emergency Medicine; PCP Internal Medicine; Visit Provider Emergency Medicine
DX: R60.0 Localized edema (principal); M06.9 Rheumatoid arthritis, unspecified; S80.11XA Contusion of right lower leg, initial encounter; S80.12XA Contusion of left lower leg, initial encounter; X58.XXXA Exposure to other specified factors, initial encounter; R06.00 Dyspnea, unspecified; E66.9 Obesity, unspecified; Z79.899 Other long term (current) drug therapy
CPT/HCPCS: 80053; 85025; 85610; 85730; 93971; 99283; A4216

== ENCOUNTER → 2022-10-01 | Outpatient (CLI) | payer MEDICARE, MEDICAID, SELFPAY ==
[2022-10-01 16:04] LABS: BUP Internal Control LINE = VALID (VALID); Buprenorphine Drug Screen Positive (<10 ng/mL)
[2022-10-01 16:09] LABS: Amphetamine Urine VISTA NEGATIVE (<1000 ng/mL); Barbiturate Urine VISTA NEGATIVE (< 200 ng/mL); Benzodiazepine Urine VISTA NEGATIVE (< 200 ng/mL); Cocaine Urine VISTA NEGATIVE (< 300 ng/mL); Ecstacy Urine VISTA NEGATIVE (< 500 ng/mL); Methadone Urine VISTA NEGATIVE (< 300 ng/mL); PCP Urine VISTA NEGATIVE (< 25 ng/mL); THC Urine VISTA NEGATIVE (< 50 ng/mL); Vista UDS pH Range 5
== END | disposition home or self-care (01) ==
PROVIDERS: PCP Internal Medicine; Referring Provider Anesthesiology Pain Medicine; Visit Provider Anesthesiology Pain Medicine
DX: F11.20 Opioid dependence, uncomplicated (principal)
CPT/HCPCS: 80307

== ENCOUNTER → 2022-10-04 | Outpatient (CLI) | payer MEDICARE, MEDICAID, SELFPAY ==
--- NOTE | 2022-10-04 10:15 | MRI_ITS ---
INDICATION: RIGHT ankle pain, evaluate for right lateral ankle ligament tear -- vs peroneal tendon tear EXAMINATION: MRI - RIGHT MR Ankle W/O Contrast TECHNIQUE: Multiplanar and multisequence MR images of the right ankle without contrast. IV Contrast Dosage and Agent: None. COMPARISON: Right foot radiograph April 03, 2022. FINDINGS: TISSUES: Medial and lateral ankle edema without confluent fluid collection or air artifact. BONE: Nondisplaced linear fracture line through the distal fibula at the mortise level without significant surrounding intraosseous edema. Talar dome is intact. . No osteochondral lesion. JOINT: Normal alignment. Normal mortise spacing. Articular cartilage intact. Trace joint effusion. LIGAMENTS: Anterior tibiofibular ligament is indistinct and irregular centrally concerning for high-grade tear. Posterior tibiofibular ligament is intact. Anterior and posterior talofibular ligaments appear intact. Superficial and deep fibers of deltoid ligament appear intact. Spring ligament is intact. TENDONS: Peroneus brevis demonstrates boomerang shape draped anterior around peroneus longus with trace tenosynovitis compatible with split tear.. Posterior tibialis, flexor digitorum longus, and flexor hallucis longus are intact. Dorsal extensor tendons are intact.. Achilles tendon intact with trace retrocalcaneal bursal fluid.. MUSCLES: Normal bulk and signal. MISCELLANEOUS: Plantar fascia intact. Normal fat in the sinus tarsi. MRI/Lower Ext Joint Only (Routine) IMPRESSION: 1. Nondisplaced likely subacute fracture of the fibula at the ankle mortise level with mild medial and lateral ankle edema and trace ankle effusion. 2. Findings concerning for anterior tibiofibular ligament tear. 3. Findings consistent with peroneus brevis split tear with trace tenosynovitis. Electronically Signed: Adan Amador MD at 8:17 EDT ,
== END | disposition home or self-care (01) ==
LOC: MRI 08:56
PROVIDERS: PCP Internal Medicine; Referring Provider Student in an Organized Health Care Education/Training Program; Visit Provider Student in an Organized Health Care Education/Training Program
DX: S93.401A Sprain of unspecified ligament of right ankle, initial encounter (principal); M79.671 Pain in right foot
CPT/HCPCS: 73721

== ENCOUNTER 2023-04-24 11:45 | Day surgery (SDC) | payer MEDICARE, MEDICAID, SELFPAY ==
[2023-04-24] VITALS (9 sets, daily range): BP systolic 108–125; BP diastolic 54–85; PULSE 86–100; RESP 16–18; TEMP 36.4–37.1; O2SAT 91–97; BMI 50.5
[2023-04-24] MEDS: Lactated Ringers 1,000 ML 15 ML IV (12:46)
[2023-04-24 12:59] LABS: Internal QC Validated? YES +Cl - CLEAR BKGD
[2023-04-24 13:00] LABS: Pregnancy, Urine Negative Negative; Record Kit Lot#,Urine Preg HCG0000667200
--- NOTE | 2023-04-24 13:25 | DCINST_ITS ---
Discharge Instructions Diet Discharge Diet: No restrictions Activity Discharge Activity: May Not Drive and May Shower (Patient may shower with cast bag covering right lower extremity to keep dressings clean, dry, and intact. She will also utilize shower chair to remain nonweightbearing during showers.) Weight Bearing Status: No weight bearing (Please remain nonweightbearing to right lower extremity utilizing knee scooter/walker) Keep extremity elevated above heart level: Right Leg (Elevate right lower extremity at all times of rest for postoperative edema control) Dressing / Incision Call your doctor if you observe: Fever of 101 or Higher, Shortness of breath, Chest pain, Calf discomfort and Uncontrolled pain Change Dressing in: do not change dressing Remove Dressing in: leave in place till F/U (Physician will change dressing at first postoperative appointment) Cleanse incision/area with: Do not get Incision Wet and Keep Dressing Clean & Dry (Do not get incision wet and keep dressings clean, dry, and intact to the right lower extremity) Follow Up Care Please Follow Up With: Rick Cummins DPM When: Patient has first postoperative appointment in office early next week Test Results: Test results from this visit will be discussed in further detail at your follow- up appointment, if applicable. Discharge Plan Admission Attending Provider: Rick Cummins Primary Care Provider: Almaz Rosas Discharge Orders/Prescriptions Prescriptions: New doxycycline hyclate 100 mg capsule 100 mg PO DAILY Qty: 10 0RF aspirin 325 mg tablet 325 mg PO DAILY Qty: 20 0RF ondansetron 4 mg tablet,disintegrating 4 mg PO Q8H Qty: 28 0RF oxycodone-acetaminophen 5-325 mg tablet 1 tab PO Q8H PRN (Reason: pain) 7 Days Qty: 28 0RF No Action pantoprazole 40 MG tablet 40 mg PO BID Zyrtec 10 MG capsule 10 mg PO DAILY Veramist 2 spray NASAL DAILY gabapentin 600 mg tablet 600 mg PO TID Patient Comments: TAKE 1 TABLET BY MOUTH THREE TIMES DAILY FOR RESTLESS LEG SYNDROM sucralfate 1 gram tablet 2 g PO QHS Patient Comments: TAKE 1 TABLET BY MOUTH BEFORE MEALS AND AT BEDTIME. ferrous sulfate 325 mg (65 mg iron) tablet 325 mg PO QODAY Patient Comments: TAKE 1 TABLET BY MOUTH EVERY OTHER DAY escitalopram oxalate 20 mg tablet 20 mg PO DAILY Patient Comments: TAKE 1 TABLET BY MOUTH EVERY DAY buprenorphine HCl [Belbuca] 300 mcg film 300 mcg BUCCAL BID Patient Comments: DISSOLVE ON TONGUE 2 TIMES A DAY FOR 28 DAYS Xywav 0.5 gram/mL Solution 4.25 g PO 0030 albuterol sulfate [Ventolin HFA] 90 mcg/actuation HFA aerosol inhaler 2 puff inhalation Q4H PRN PRN (Reason: Wheezing) Qty: 1 0RF Xywav 0.5 gram/mL solution 4 g PO 0300 Rx Instructions: administer the first dose at bedtime and the second dose 2.5-4 hours later colestipol 1 gram tablet 2 g PO QHS Patient Comments: take 1 tablet by mouth twice a day mycophenolate mofetil 500 mg tablet 1,500 mg PO BID Patient Comments: take 3 tablets by mouth twice a day modafinil 200 mg tablet 200 mg PO DAILY Patient Comments: take 1 tablet by mouth every morning Benlysta 120 mg recon soln 120 mg IV QMONTH cholecalciferol (vitamin D3) 25 mcg (1,000 unit) capsule 1,000 unit PO DAILY Patient Comments: take 1 capsule by mouth once daily famotidine 40 mg tablet 40 mg PO DAILY Patient Comments: take 1 tablet by mouth once daily prednisone 10 mg tablet 10 mg PO DAILY Patient Comments: take 3 tablets by mouth daily for 1 week then 2 daily for 1 week then 1 daily for 1 week then STOP Referrals / Follow Up: Almaz Rosas MD [Primary Care Provider] - Disposition Disposition (needs filled in before D/C Order can be placed): Home, Self Care
--- NOTE | 2023-04-24 13:36 | RAD_ITS ---
EXAM: XR RIGHT ANKLE COMPLETE, 3 OR MORE VIEWS CLINICAL INDICATION: Postop Peroneal Tendon repair, AITFL + syndesmosis TECHNIQUE: Frontal, lateral and oblique views of the right ankle. COMPARISON: No relevant prior studies available. FINDINGS: BONES/JOINTS: Surgical changes involve the distal tibia and fibula. Alignment of bony structures is normal. SOFT TISSUES: Soft tissue swelling is present. RAD/Ankle min 3 Views IMPRESSION: Satisfactory postop changes. Electronically Signed: Colt Crockett MD at 16:44 EDT ,
[2023-04-24] MEDS: Lidocaine 1% /Epi 1:100 (20ml) 20 ML Vial (14:20)
[2023-04-24] MEDS: dexAMETHasone 4 MG/ML Vial (16:15)
--- NOTE | 2023-04-24 17:25 | RAD_ITS ---
STUDY: X-RAY - RIGHT FOOT CLINICAL: Female, 37 years old. Post-op Syndesmosis,AITFL, Peroneal Tendon repair TECHNIQUE: 3 view(s) of the foot. COMPARISON: 04/03/2022 FINDINGS: Normal talus, calcaneus, and tarsal bones. Normal visualized subtalar, talonavicular, calcaneocuboid, tarsal and tarsometatarsal articulations. Normal metatarsi. Normal metatarsophalangeal joint of the great toe. Normal tibial and fibular sesamoid bones. Normal interphalangeal joint of the great toe. Normal phalanges of the great toe. Normal second through fifth metatarsophalangeal joints. Normal interphalangeal joints and phalanges of the lesser toes. The soft tissue structures are unremarkable. RAD/Foot min 3 Views IMPRESSION: Normal x-ray examination of the foot. Electronically Signed: Corey Maravilla MD at 18:17 EDT ,
--- NOTE | 2023-04-24 17:25 | RAD_ITS ---
STUDY: X-RAY - RIGHT ANKLE REASON FOR EXAM: Female, 37 years old. Post-op Syndesmosis,AITFL, Peroneal Tendon repair TECHNIQUE: 3 view(s) of the ankle. COMPARISON: None. FINDINGS: Status post recent syndesmosis tight rope implant placement with anchors in the distal fibula and distal tibia and subcutaneous emphysema.. Normal medial and lateral malleoli. Normal tibiotalar articulation and ankle mortise. Normal visualized talus and calcaneus. The visualized subtalar, talonavicular, calcaneocuboid and tarsal articulations are normal. Fiberglas cast obscures soft tissue and bony detail. RAD/Ankle min 3 Views IMPRESSION: Status post recent syndesmosis tight rope implant placement. Electronically Signed: Corey Maravilla MD at 18:27 EDT ,
--- NOTE | 2023-04-24 17:30 | PCM.OPRPT ---
Problems Associated Problem List Diagnoses (1) Injury of peroneal tendon of right foot: (2) Syndesmotic disruption of right ankle: (3) Rupture of ligament of right ankle: (4) Peroneal tendinitis, right leg: (5) Pain in right lower leg: Report of Operation Date of Procedure: 04/24/23 Pre-Operative Diagnosis: 1. Split tear of the peroneus brevis tendon right foot/ankle 2. Peroneal tenosynovitis right foot/ankle 3. Rupture of right ankle ligament, anterior tibiofibular ligament 4. Syndesmotic instability/rupture of syndesmosis right ankle 5. Pain right lower extremity Post-Operative Diagnosis: 1. Split tear of the peroneus brevis tendon right foot/ankle 2. Peroneal tenosynovitis right foot/ankle 3. Rupture of right ankle ligament, anterior tibiofibular ligament 4. Syndesmotic instability/rupture of syndesmosis right ankle 5. Pain right lower extremity Surgery/Procedure Performed:: 1. Primary repair of peroneal brevis tendon right foot 2. Debridement of tenosynovitis peroneal tendons right foot 3. Repair of syndesmosis right ankle 4. Repair of anterior tibiofibular ligament right foot Description of Surgical Findings:: See operative note for findings Surgeon: Rick Cummins substation operator transforming: Ciara Tyson DPM PGY-2 Type of Anesthesia: General/Regional (Popliteal block right lower extremity) Specimen's removed: None Drains: None Estimated Blood Loss (mL): < 70 mL Description of Procedure: HPI/indication: Patient is a 37-year-old female with history of autoimmune disease followed by rheumatology who presented to the clinic with complaint of chronic right ankle pain. Patient had been seen by another provider and was treated for ankle sprain of the right lower extremity. Patient states since original injury March 2022 during which she had a narcoleptic episode and passed out while seated resulting in right ankle folding under her with audible pop. She has had chronic pain in the right foot/ankle that has not improved since injury. Radiographs from original presentation to ED on 04/03/2022 demonstrate no acute fracture of the right foot. On examination she does have pain overlying the lateral ankle about the distal fibula, AITFL, peroneal tendons of the right foot with weakness upon eversion of the foot and pain with external rotation of the ankle. She did return to the clinic for 09/29/2022 for initial evaluation by myself having continued conservative treatment for 6 months without improvement MRI was ordered to evaluate for further injury. MRI did demonstrate subacute nondisplaced linear fracture through the distal fibula at the level of Mortise without significant surrounding interosseous edema. No talar dome osteochondral lesions, rupture of the anterior tibiofibular ligament and peroneus brevis demonstrating boomerang shaped draped anterior around the peroneus longus with trace tenosynovitis compatible with split tendon tear. I discussed these findings with the patient indicating surgical repair of the tendon in addition to repair of the ruptured anterior tibiofibular ligament and syndesmotic repair to address instability would be required. Patient did discuss with restorer lace and textiles who suggested finishing current course of autoimmune disease injections prior to surgical intervention. I had discussed the condition in detail with patient and reviewed all treatment options. Patient continues to have limiting pain and significant symptoms despite nonsurgical care and would like to proceed forward with surgical intervention. The procedure was discussed in great detail and possible benefits versus risk of potential complications were discussed in detail. I advised the patient the risk include but are not limited to the following: Pain, continued pain, complex regional pain syndrome, deformity, continued deformity, recurrence, overcorrection, under correction, numbness/neuritis, swelling, scarring, poor cosmetic result, bleeding, hardware failure, symptomatic hardware, the need for further surgery/procedures, fracture, nonunion,/delayed union, nonhealing/delayed healing, dehiscence, blood clots, allergic reaction, transfer lesion, postoperative arthritis, weakness, shoe gear problems/irritation, inability to walk, inability to wear shoes, stroke, heart attack, addiction to pain medication, loss of function, loss of limb, loss of life. Patient expressed understanding and agreement of these. Patient was able to repeat these back. Typical postoperative course was reviewed with the patient. Patient expressed understanding and agreement and consent was signed freely. No guarantees were given. No promises were made. Patient did undergo medical clearance by PCP and restorer lace and text[employer] and Patient did stop injections and oral autoimmune medications per rheumatology recommendation prior to surgical intervention. All diagnostic data was reviewed prior to entering the OR. Operative limb was signed prior to entering the OR. She was scheduled to undergo primary repair of the peroneus brevis tendon, debridement of peroneal tendons, repair of ruptured right ankle ligament/AITFL, and repair of syndesmotic disruption of the right ankle at [facility] on 04/24/2023. Procedure: Under mild sedation patient was brought into the operating placed on the table in the supine position. Following induction of general anesthesia a pneumatic thigh tourniquet was placed about the patient's right thigh. The right hip was bumped with a blanket bump in the right leg was elevated with a blanket bump. The foot and leg were then scrubbed, prepped, and draped in the usual aseptic manner. An Esmarch bandage was utilized to exsanguinate the right lower extremity and the pneumatic thigh tourniquet was inflated to 300 mmHg. At this time fluoroscopy was utilized to confirm landmarks and planned incision placement for repair of the anterior tibiofibular ligament and syndesmosis of the right ankle. A linear incision was made along the distal fibula utilizing a #15 blade. Incision was deepened through sharp and blunt dissection. Care was taken to identify and retract all vital neurovascular structures. There was small tributary veins that were ligated and cauterized for hemostasis control. There was noted to be persistent seeping/bleeding from the soft tissues and thus the thigh tourniquet was noted to be ineffective and a sterile tourniquet was applied to the proximal right calf. The right foot was then elevated and the pneumatic tourniquet was inflated to 250 mmHg. The thigh tourniquet at this time was deflated. At this time hemostasis was controlled with the calf tourniquet and surgical field was clear. The fibula was identified and the periosteum was incised and reflected medial and lateral and a 2 hole titanium buttress plate was temporarily fixated under fluoroscopic imaging to the lateral distal fibula. Plate position was confirmed under multiple fluoroscopic views. At this time following AO principles an Arthrex tight rope XP was placed through the distal hole of the plate and the suture button was deployed on the medial aspect of the tibia flush against bone and the tight rope was tightened. Following AO principles the proximal hole in the buttress plate was filled with a 4.0 x 16 mm cancellous screw. A hook test was then performed under fluoroscopy demonstrating reduction of the syndesmosis. Next, following AO principles and Arthrex manufacture guideline a 3.5 mm swivel lock anchor was placed into the anterior distal fibula and the fiber tape suture was clamped with hemostat. At this time a anterior lateral incision was made overlying the distal tibia utilizing a #15 blade. Incision was deepened via sharp and blunt dissection and care was taken to identify and retract all vital neurovascular structures. The distal lateral base of the tibia was then visualized and the fiber tape was passed along the bone to this incision site and following AO principles and Arthrex manufacture guideline a 4.75 mm swivel lock with fiber tape was deployed into the base of the tibia under tension recreating the anterior tibiofibular ligament. The ligament was again tested for syndesmotic instability and instability of the anterior tibiofibular ligament under fluoroscopy and no instability was noted. The swivel lock anchors in the fibula and tibia are noted to be radiolucent. Final fluoroscopic imaging was obtained of the right lower extremity in multiple views confirming placement of tight rope and repair of the anterior tibiofibular ligament with no instability noted. Next, attention was directed to the lateral leg where the peroneal tendons were exposed and the peroneal sheath of the peroneal longus and brevis tendons was debrided of all nonviable discolored tissue and tenosynovitis. The peroneal longus tendon was inspected for tearing and no tears were noted. Tendon did appear healthy and viable. Peroneus brevis tendon was then exposed at the operative field and inspected for tearing with split linear tear starting 1 cm proximal to the ankle joint and extending inferiorly to the lateral malleolus and just distal to it. The tendon did appear healthy appearing however was draped around the peroneus longus tendon due to the significant splint linear tearing. Tendon did reconstitute prior to insertion of the fifth metatarsal intact and healthy appearing. 3-0 Prolene was utilized to perform a primary repair/tubularization of the peroneus brevis tendon. Following repair tendon was reinspected and noted to be free of remaining tenosynovitis with excellent repair. Site was flushed with copious amounts of normal sterile saline. Peroneal tendon sheath was then closed utilizing 3-0 Vicryl. Following closure of the peroneal tendon sheaths 0.3 mL Arthrex Interfyl injection was performed along the peroneal tendon tear to aid in healing. Next, 2.5 cc of dexamethasone was injected along the peroneal tendon sheaths. Due to prior bleeding for hemostasis controlled prior to deflation of tourniquet Surgicel powder was placed along the lateral soft tissues and at this time the pneumatic calf tourniquet was deflated and a prompt hyperemic response was noted to the digits of the right foot. Hemostasis was noted to be well controlled. Anterior lateral incision deep layer closed with 3-0 Vicryl. Subcutaneous tissue closed with 4-0 Monocryl. And skin was reapproximated utilizing 3-0 Prolene in simple interrupted fashion. Lateral incision deep layer closed utilizing 0 Vicryl. Subcutaneous tissue closed utilizing 4-0 Monocryl. Skin was reapproximated utilizing 3-0 Prolene in simple interrupted fashion. Incision sites were dressed with Betadine soaked Adaptic, 4 x 4 gauze, Kerlix x2, Webril cast padding, 4 inch Paddy wrap, 6 inch Paddy wrap. A posterior splint was then applied and anchored with a 4 inch and 6 inch Paddy wrap and modified Acosta compression fashion. Patient tolerated the procedure and anesthesia well was transported to PACU with vital signs stable and vascular status intact to the right foot. In PACU patient did receive a popliteal block for postoperative pain control. Patient and family were given discharge instructions outlining care. She is to remain nonweightbearing to the right lower extremity with assistance of knee scooter and walker. She is to keep all dressings clean, dry, and intact to the right lower extremity and utilize cast bag covering when showering seated on shower chair. She is to take all postoperative medication as instructed. She is to elevate right lower extremity at all times of rest for postoperative edema control. She will follow-up in office for continued postoperative care early next week. Grafts/Implants Used: 2 hole Titanium buttress plate x1 screw, Tightrope XP, Internal brace AITFL Complications None Admit VTE Documentation VTE Present on Admission: No VTE Mechan Device Prophylaxis: SCD's VTE Pharm Prophylaxis ordered?: Yes
== END 2023-04-24 19:37 | disposition home or self-care (01) ==
LOC: SDC 11:46 → AC 11:47
PROVIDERS: PCP Internal Medicine; Referring Provider Student in an Organized Health Care Education/Training Program; Visit Provider Student in an Organized Health Care Education/Training Program
PROC: (CPT 27675; principal; 2023-04-24 12:45)
DX: M76.71 Peroneal tendinitis, right leg (principal); M32.19 Other organ or system involvement in systemic lupus erythematosus; M35.00 Sjogren syndrome, unspecified; S96.911A Strain of unspecified muscle and tendon at ankle and foot level, right foot, initial encounter; S93.431A Sprain of tibiofibular ligament of right ankle, initial encounter; M65.871 Other synovitis and tenosynovitis, right ankle and foot; G89.29 Other chronic pain; D64.9 Anemia, unspecified; F41.9 Anxiety disorder, unspecified; F32.A Depression, unspecified; K21.9 Gastro-esophageal reflux disease without esophagitis; G47.419 Narcolepsy without cataplexy; G47.33 Obstructive sleep apnea (adult) (pediatric)
CPT/HCPCS: 27675; 27829; 27695; 73610; 73630; 76000; 81025; C1713; J7120; J2405

== ENCOUNTER → 2023-06-05 | Outpatient (CLI) | payer MEDICARE, MEDICAID, SELFPAY | END | disposition home or self-care (01) | PROVIDERS: PCP Internal Medicine; Referring Provider Student in an Organized Health Care Education/Training Program; Visit Provider Student in an Organized Health Care Education/Training Program | DX: L97.212 Non-pressure chronic ulcer of right calf with fat layer exposed (principal); T81.31XA Disruption of external operation (surgical) wound, not elsewhere classified, initial encounter | CPT/HCPCS: 87070; 87077; 87186; 87205 ==

== ENCOUNTER 2023-06-18 08:57 | Outpatient (RCR) | payer MEDICARE, MEDICAID, SELFPAY ==
[2023-06-18 09:05] VITALS: BP 154/97; PULSE 90; RESP 18; TEMP 36.5
--- NOTE | 2023-06-18 09:18 | HP.PCM_ITS ---
History of Present Illness Date of Service: 06/18/23 Chief Complaint: Surgical wound dehiscence right leg History of Wound: Patient is a 38-year-old female who subsequently developed a surgical wound dehiscence of her right lateral lower extremity. She previously underwent surgery for primary repair of split tear of the peroneus brevis tendon, primary repair of anterior tibiofibular ligament (AITFL), and syndesmotic reduction via tight rope of the right lower extremity on 04/24/2023. Following removal of sutures she developed surgical wound dehiscence secondary to continued lower extremity swelling via chronic venous insufficiency. She did undergo debridement in office 06/05/2023 and Deidre was applied at this time with Tubigrip compression. She has worn compression stockings to manage lower extremity swelling prior to surgical intervention. Patient is also noted to have autoimmune disease and is managed by rheumatology with medication and did resume all medications 2 weeks post operative per rheumatology. She was referred to the wound care center for continued wound healing. She has been applying Deidre and dry sterile dressings daily. She denies N/V/F/chills. Denies further complaints. [facility] Medical History (Updated 06/18/23 @ 12:[address] Rick Cummins, DPM) Ambulates with cane Anemia Anxiety Bilateral lower extremity edema Blackout Cardiology follow-up encounter Chest pain Chronic headaches Chronic pain Depression Difficulty swallowing Fatty liver GERD (gastroesophageal reflux disease) History of edema History of pain when walking Injury of head and neck Lupus Narcolepsy Non-smoker POTS (postural orthostatic tachycardia syndrome) Restless legs Shortness of breath on exertion Sjogrens syndrome Sleep apnea Syncope Vasculitis Walker as ambulation aid Wears glasses Home Medications Veramist 2 spray DAILY allergies 12/13/15 [History Last Taken 04/01/21 16:00] cetirizine 10 mg capsule (Zyrtec) 10 mg PO DAILY allergies 12/13/15 [History Last Taken 04/01/21 15:00] pantoprazole 40 mg tablet,delayed release 40 mg PO BID stomach 12/13/15 [History Last Taken 04/24/23] albuterol sulfate 90 mcg/actuation aerosol inhaler (Ventolin HFA) 2 puff inhalation Q4H PRN PRN Wheezing #1 device 01/09/21 [Rx Last Taken 04/01/21 17:00] buprenorphine HCl 300 mcg buccal film (Belbuca) 300 mcg buccal BID pain 01/09/21 [History Last Taken 03/31/21 22:30] escitalopram oxalate 20 mg tablet 20 mg PO DAILY anxiety 01/09/21 [History Last Taken 04/24/23] ferrous sulfate 325 mg (65 mg iron) tablet 325 mg PO QODAY supplement 01/09/21 [History Last Taken 03/31/21 16:00] gabapentin 600 mg tablet 600 mg PO TID restless legs 01/09/21 [History Last Taken 04/24/23] sodium, calcium, magnesium, potassium oxybates 0.5 gram/mL oral soln (Xywav) 4.25 g PO 0030 narcolepsy 01/09/21 [History Last Taken 03/31/21 00:00] sucralfate 1 gram tablet 2 g PO QHS stomach 01/09/21 [History Last Taken 04/01/21 13:00] belimumab 120 mg intravenous solution (Benlysta) 120 mg IV QMONTH 04/17/23 [History Last Taken Unknown] cholecalciferol (vitamin D3) 25 mcg (1,000 unit) capsule 1,000 unit PO DAILY 04/17/23 [History Last Taken Unknown] colestipol 1 gram tablet 2 g PO QHS 04/17/23 [History Last Taken Unknown] famotidine 40 mg tablet 40 mg PO DAILY 04/17/23 [History Last Taken 04/24/23] modafinil 200 mg tablet 200 mg PO DAILY 04/17/23 [History Last Taken Unknown] mycophenolate mofetil 500 mg tablet 1,500 mg PO BID 04/17/23 [History Last Taken 04/15/23] prednisone 10 mg tablet 10 mg PO DAILY 04/17/23 [History Last Taken 04/15/23] sodium, calcium, magnesium, potassium oxybates 0.5 gram/mL oral soln (Xywav) 4 g PO 0300 04/17/23 [History Last Taken Unknown] aspirin 325 mg tablet 325 mg PO DAILY #20 tabs 04/24/23 [Rx Last Taken Unknown] doxycycline hyclate 100 mg capsule 100 mg PO DAILY #10 caps 04/24/23 [Rx Last Taken Unknown] ondansetron 4 mg disintegrating tablet 4 mg PO Q8H #28 tabs 04/24/23 [Rx Last Taken Unknown] oxycodone-acetaminophen 5 mg-325 mg tablet 1 tab PO Q8H PRN pain 7 days #28 tabs 04/24/23 [Rx Last Taken Unknown] Allergy/AdvReac Type Severity Reaction Status Date / Time dog dander Allergy Shortness Verified 04/24/23 12:14 of breath infliximab [From Remicade] Allergy Anaphylaxis Verified 04/24/23 12:14 pollen extracts Allergy Shortness Verified 04/24/23 12:14 of breath rituximab [From Rituxan] Allergy Anaphylaxis Verified 04/24/23 12:14 cephalexin AdvReac Nausea Verified 04/24/23 12:14 montelukast sodium AdvReac Unknown Verified 04/24/23 12:14 [From Singulair] sulfamethoxazole AdvReac Upset Verified 04/24/23 12:14 [From Bactrim] Stomach trimethoprim [From Bactrim] AdvReac Upset Verified 04/24/23 12:14 Stomach Family History Other Allergies Asthma Cancer Diabetes Heart disease Surgical History (Updated 04/17/23 @ 14:33 by Jesi Cline) History of cholecystectomy History of esophagogastroduodenoscopy (EGD) History of tonsillectomy Social History Smoking Status: Never smoker ROS Constitutional Constitutional: Denies chills, fatigue or fever(s) Eyes Eyes: Denies blurry vision, change in vision or double vision ENT HEENT: Denies dysphagia, nasal congestion, sinus pressure or sore throat Cardiovascular Cardiovascular: Denies chest pain, claudication or fatigue Respiratory/Chest Respiratory/Chest: Denies cough, shortness of breath with exertion or wheezing Gastrointestinal Gastrointestinal: Denies abdominal pain, constipation, diarrhea, nausea or vomiting Genitourinary Genitourinary: Denies dysuria, hematuria, urinary frequency or urinary urgency Musculoskeletal Musculoskeletal: Denies joint pain, joint stiffness or joint swelling Integumentary Integumentary: Denies lesions, pruritus or rash Neurologic Neurologic: Denies dizziness, numbness or seizures Psychiatric Psychiatric: Denies anxiety or depression Endocrine Endocrinology: Denies cold intolerance, heat intolerance, polydipsia or polyuria Hematologic/Lymphatic Hematologic/Lymphatic: Denies easy bleeding or easy bruising Vital Signs Vital Signs Vital Signs: 06/18/23 09:05 Temperature 97.7 F L Temperature Source Temporal Pulse Rate 90 Respiratory Rate 18 Blood Pressure 154/97 H Blood Pressure Mean 116 Blood Pressure Source Monitor Blood Pressure Position Semi-Fowlers Blood Pressure Location Right Forearm Oxygen Delivery Method Room Air Physical Exam Const alert, oriented x3, no apparent distress and well nourished General Appearance: cooperative HEENT normocephalic Eyes General Eye: normal appearance of both eyes Neck General: normal visual inspection Lymph Lymphatic: no lymphadenopathy noted and no lymphedema noted Resp normal respiratory effort Cardio regular rate and regular rhythm Extremity normal capillary refill, no joint enlargement and no calf tenderness Extremity Narrative: DP and PT pulses palpable bilateral. Capillary fill time less than 3 seconds to digits bilateral. Dermatological: There is bilateral lower extremity edema secondary to chronic venous stasis with some hemosiderin deposition noted about the right lower extremity. There is a surgical dehiscence of the proximal incision on the right lower extremity with subsequent ulceration. Ulceration demonstrates mixed fibrogranular layer with some serosanguineous drainage. Surrounding skin does have rubor secondary to chronic venous stasis in addition to autoimmune disease. Ulceration demonstrates no signs of infection. Distal aspect of the incision right lateral leg is a well-healed cicatrix. Anterior lateral leg demonstrates well-healed cicatrix. No signs of infection. Musculoskeletal: Muscle strength 5 of 5 age-appropriate. No pain to palpation about the lateral leg of the right lower extremity. Skin no rashes or lesions noted, skin turgor normal and no jaundice General Skin Exam: venous stasis and dermatitis Neuro moves all extremities Debridement Note Debridement Note Wound debrided: Right lateral leg Laterality: Right Wound Grade/Stage: Maciel stage I Type of Debridement: Excisional debridement Anesthesia Used: 5% Lidocaine Gel Depth: Down to and including healthy tissue and in the subcutaneous layer Percentage of wound debrided: 100 Instrument Used: 3mm curette Tissue Removed: Fibrous, devitalized subcutaneous, biofilm, slough Severity: Fat Layer Exposed Amount of bleeding with debridement: Mild Bleeding Controlled with: Compression and gauze Patient tolerated procedure: Patient tolerated procedure well Post-Debridement Measurements and Additional Note: Post-Debridement Measurements/Treatment NEELA - Nurse 1 - General Ulcer Assessment Start: 06/18/23 09:04 Freq: Status: Active Protocol: LAURIE Activity Type Activity Date Activity User E-sign Co-sign Detail Recorded Client Recorded Date Recorded By Document 06/18/23 09:05 [employer] 06/18/23 09:15 06/18/23 09:05 WC - Today's Visit Information Type of service Initial Visit Arrival Mode Ambulatory, Other Arrival Mode (Other) KNEE ROLLER Patient Identification Verified (Name & Yes ) Height and Weight Height 5 ft 10 in Vital Signs Temperature (97.8 F-99.1 F) 97.7 F L Temperature Source Temporal Pulse Rate (60-100) 90 Pulse Location Monitor Respiratory Rate (12-18) 18 Respiratory rate source Observation Oxygen Delivery Method Room Air Blood Pressure (90/60-120/80) 154/97 H Blood Pressure Mean 116 Source Monitor Position Semi-Fowlers Blood Pressure Location Right Forearm History Since Last Visit- (Skip if this is Patient's initial visit) Left Footwear Regular Shoe Right Footwear Surgical Shoe with pressure relief insole Pain Scale: 0-10 Numeric Is Patient Pain Free? Yes - Nurse 1 - General Ulcer Measurement Start: 06/18/23 09:04 Freq: Status: Active Protocol: Activity Type Activity Date Activity User E-sign Co-sign Detail Recorded Client Recorded Date Recorded By Document 06/18/23 09:05 [employer] 06/18/23 09:15 06/18/23 09:05 Wound Center Nurse 1 #1 RT LAT ANKLE CLUSTER -Current Size (cm) - Length 3.2 -Current Size (cm) - Width 1.1 -Current Size (cm) - Depth 0.8 -Total Square Cm 3.52 -Exudate Amt Medium -Exudate Type Serosanguineous -Wound Margin Thickened -Granulation Amt Medium (34-66%) -Granulation Quality Red -Necrosis Amt Medium (34-66%) -Necrotic Tissue Type Adherent Slough -Texture (Meghan-wound Skin Appearance) Localized Edema -Moisture (Meghan-wound Skin Appearance) Assessed -Color (Meghan-wound Skin Appearance) Assessed -Temperature (Meghan-wound Skin No Abnormality Appearance) (Pt Warm) -Ulcer Cleansing Rinsed/ Irrigated with Saline -Foul Odor after Cleansing No -Anesthetic Used 5% Lidocaine Gel Right Calf (cm) 43.7 Right Ankle (cm) 30.3 Assessment/Plan Assessment/Plan (1) Peroneal tendinitis, right leg: CODE(S): M76.71 - Peroneal tendinitis, right leg (2) Injury of peroneal tendon of right foot: CODE(S): S86.301A - Unspecified injury of muscle(s) and tendon(s) of peroneal muscle group at lower leg level, right leg, initial encounter (3) Rupture of ligament of right ankle: CODE(S): S93.401A - Sprain of unspecified ligament of right ankle, initial encounter (4) Syndesmotic disruption of right ankle: CODE(S): S93.431A - Sprain of tibiofibular ligament of right ankle, initial encounter (5) Pain in right lower leg: CODE(S): M79.661 - Pain in right lower leg (6) Surgical wound dehiscence: CODE(S): T81.31XA - Disruption of external operation (surgical) wound, not elsewhere classified, initial encounter (7) Venous insufficiency (chronic) (peripheral): CODE(S): I87.2 - Venous insufficiency (chronic) (peripheral) (8) Bilateral lower extremity edema: CODE(S): R60.0 - Localized edema (9) Non-pressure chronic ulcer of right calf with fat layer exposed: CODE(S): L97.212 - Non-pressure chronic ulcer of right calf with fat layer exposed PLAN: Plan Patient seen and evaluated She presents today postoperatively s/p primary repair of split tear of peroneal brevis tendon, primary repair of anterior tibiofibular ligament (AITFL), and syndesmotic reduction via tight rope DOS 04/24/2023, POD #55 States pain to her right ankle is continuing to improve. Denies calf pain today. Does admit to some upper leg pain where she did have dehiscence of her surgical incision site of the proximal portion of her lateral leg incision. She reports this did begin to open up on 06/02/2023 following lower extremity swelling secondary to her chronic venous insufficiency. She reports she was having difficulty with the Tubigrip compression which did allow for more leg swelling and opening of her surgical incision site. Dehiscence occurred 2 weeks following the removal of her sutures. She has remained nonweightbearing to the right lower extremity with the a ssistance of a knee scooter. Dressings were removed today and site was inspected. Anterior lateral ankle demonstrates well-healed cicatrix. Lateral ankle demonstrates well-healed cicatrix distally and proximally surgical dehiscence of wound with underlying ulceration. Ulceration did undergo debridement as noted in the clinical panel above. Ulceration measures 2 cm x 1.3 cm x 0.3 cm. Site was dressed with Deidre and dry sterile dressing. She was instructed to change dressing daily. Tubigrip compression stocking applied to the lower extremity. She was also encouraged to remain nonweightbearing to the right lower extremity with the assistance of knee scooter and elevate lower extremity at all times of rest for edema control. Discussed adequate protein intake to aid in wound healing. Oscar supplementation recommended. Discussed continuing early range of motion exercises while nonweightbearing. Discussed with her at next visit transitioning to protected weightbearing with surgical shoe/cam boot. Discussed continuing local wound care with plans to apply for EpiFix graft for application at next visit. At this time overall prognosis is good but complicated due to surgical de hiscence at the most proximal incision site secondary to chronic venous insufficiency and lower extremity edema. We will continue local wound care at this time. The following work up and care recommendations were made: Dressing: Deidre and dry sterile dressing. Change dressing daily. Wash: Soap and water Tissue growth optimization: Deidre Offload: To remain nonweightbearing to the right lower extremity with the assistance of a knee scooter and surgical shoe to the right foot. Patient was previously in cam boot until surgical wound dehiscence. Transition back to surgical shoe to allow for decreased pressure at the wound site on the leg. Vascular: DP and PT pulses palpable with adequate capillary fill time to digits. Edema: Patient does have chronic venous insufficiency with bilateral lower extremity edema. Tubigrip compression is applied. Once wound is closed she will return to her prescription compression stockings. Infection: No signs of infection. Pain: May take [id number] Tylenol for discomfort Host factors: Chronic venous insufficiency, autoimmune disease I answered all the patient's questions. To return to the wound healing center in 1 week or call sooner if the patient has any questions or concerns. Will RTC for continued wound healing and postoperative care s/p primary repair of split tear of peroneal brevis tendon, primary repair of anterior tibiofibular ligament (AITFL), and syndesmotic repair via tight rope right lower extremity.
== END 2023-06-21 23:59 | disposition home or self-care (01) ==
LOC: WC 08:57
PROVIDERS: PCP Internal Medicine; Referring Provider Student in an Organized Health Care Education/Training Program; Visit Provider Student in an Organized Health Care Education/Training Program
DX: T81.31XA Disruption of external operation (surgical) wound, not elsewhere classified, initial encounter (principal); L97.212 Non-pressure chronic ulcer of right calf with fat layer exposed; I87.2 Venous insufficiency (chronic) (peripheral); I49.8 Other specified cardiac arrhythmias; M76.71 Peroneal tendinitis, right leg; R60.0 Localized edema; G89.29 Other chronic pain; G47.30 Sleep apnea, unspecified; Z79.82 Long term (current) use of aspirin; Z79.899 Other long term (current) drug therapy
CPT/HCPCS: 11042; 99213; G0463

== ENCOUNTER 2023-07-01 14:53 | Emergency (ER) | payer MEDICARE, MEDICAID, SELFPAY ==
[2023-07-01] VITALS (14 sets, daily range): BP systolic 123–166; BP diastolic 64–99; PULSE 75–88; RESP 12–18; TEMP 36.7–37.2; O2SAT 96–100; BMI 50.9
--- NOTE | 2023-07-01 15:35 | ED.VIS.LOWEX ---
HPI History of Present Illness HPI Narrative: There is redness and swelling to her right ankle that has been getting worse over the past week. Patient states she has been following with Dr. Cummins at the wound care center after her surgery. Patient states she had surgery to fix torn ligaments in her ankle. Patient states she has been on antibiotics for the past 3 days. Patient admits to some subjective fevers. Patient states that there is some discharge coming from the wound. Patient describes her pain as sharp and burning. Patient states it is worse with any palpation or pressure. Patient states nothing seems to help with it. Patient denies any paresthesias or weakness. Chief Complaint: Lower Extremity Injury Informant: patient Onset/Context/Timing Onset: Weeks (1) Context: Gradual Onset Timing: Continuous Quality of Pain: Burning Location: Right ankle Worsened by: Pressure, palpation Relieved by: Nothing Associated Symptoms Associated Symptoms: Negative for Parasthesia, Weakness or Loss of Funtion [facility] Medical History (Updated 07/01/23 @ 17:[address] Kevin Fregoso, DO) Ambulates with cane Anemia Anxiety Bilateral lower extremity edema Blackout Cardiology follow-up encounter Chest pain Chronic headaches Chronic pain Depression Difficulty swallowing Fatty liver GERD (gastroesophageal reflux disease) History of edema History of pain when walking Injury of head and neck Lupus Narcolepsy Non-smoker POTS (postural orthostatic tachycardia syndrome) Restless legs Shortness of breath on exertion Sjogrens syndrome Sleep apnea Syncope Vasculitis Walker as ambulation aid Wears glasses Home Medications Veramist 2 spray DAILY allergies 12/13/15 [History Last Taken 04/01/21 16:00] cetirizine 10 mg capsule (Zyrtec) 10 mg PO DAILY allergies 12/13/15 [History Last Taken 04/01/21 15:00] pantoprazole 40 mg tablet,delayed release 40 mg PO BID stomach 12/13/15 [History Last Taken 04/24/23] albuterol sulfate 90 mcg/actuation aerosol inhaler (Ventolin HFA) 2 puff inhalation Q4H PRN PRN Wheezing #1 device 01/09/21 [Rx Last Taken 04/01/21 17:00] buprenorphine HCl 300 mcg buccal film (Belbuca) 300 mcg buccal BID pain 01/09/21 [History Last Taken 03/31/21 22:30] escitalopram oxalate 20 mg tablet 20 mg PO DAILY anxiety 01/09/21 [History Last Taken 04/24/23] ferrous sulfate 325 mg (65 mg iron) tablet 325 mg PO QODAY supplement 01/09/21 [History Last Taken 03/31/21 16:00] gabapentin 600 mg tablet 600 mg PO TID restless legs 01/09/21 [History Last Taken 04/24/23] sodium, calcium, magnesium, potassium oxybates 0.5 gram/mL oral soln (Xywav) 4.25 g PO 0030 narcolepsy 01/09/21 [History Last Taken 03/31/21 00:00] sucralfate 1 gram tablet 2 g PO QHS stomach 01/09/21 [History Last Taken 04/01/21 13:00] belimumab 120 mg intravenous solution (Benlysta) 120 mg IV QMONTH 04/17/23 [History Last Taken Unknown] cholecalciferol (vitamin D3) 25 mcg (1,000 unit) capsule 1,000 unit PO DAILY 04/17/23 [History Last Taken Unknown] colestipol 1 gram tablet 2 g PO QHS 04/17/23 [History Last Taken Unknown] famotidine 40 mg tablet 40 mg PO DAILY 04/17/23 [History Last Taken 04/24/23] modafinil 200 mg tablet 200 mg PO DAILY 04/17/23 [History Last Taken Unknown] mycophenolate mofetil 500 mg tablet 1,500 mg PO BID 04/17/23 [History Last Taken 04/15/23] prednisone 10 mg tablet 10 mg PO DAILY 04/17/23 [History Last Taken 04/15/23] sodium, calcium, magnesium, potassium oxybates 0.5 gram/mL oral soln (Xywav) 4 g PO 0300 04/17/23 [History Last Taken Unknown] aspirin 325 mg tablet 325 mg PO DAILY #20 tabs 04/24/23 [Rx Last Taken Unknown] doxycycline hyclate 100 mg capsule 100 mg PO DAILY #10 caps 04/24/23 [Rx Last Taken Unknown] ondansetron 4 mg disintegrating tablet 4 mg PO Q8H #28 tabs 04/24/23 [Rx Last Taken Unknown] oxycodone-acetaminophen 5 mg-325 mg tablet 1 tab PO Q8H PRN pain 7 days #28 tabs 04/24/23 [Rx Last Taken Unknown] Allergy/AdvReac Type Severity Reaction Status Date / Time dog dander Allergy Shortness Verified 07/01/23 14:53 of breath infliximab [From Remicade] Allergy Anaphylaxis Verified 07/01/23 14:53 pollen extracts Allergy Shortness Verified 07/01/23 14:53 of breath rituximab [From Rituxan] Allergy Anaphylaxis Verified 07/01/23 14:53 cephalexin AdvReac Nausea Verified 07/01/23 14:53 montelukast sodium AdvReac Unknown Verified 07/01/23 14:53 [From Singulair] sulfamethoxazole AdvReac Upset Verified 07/01/23 14:53 [From Bactrim] Stomach trimethoprim [From Bactrim] AdvReac Upset Verified 07/01/23 14:53 Stomach Family History Other Allergies Asthma Cancer Diabetes Heart disease Surgical History (Updated 07/01/23 @ 15:[address] Kevin Fregoso DO) History of ankle surgery History of cholecystectomy History of esophagogastroduodenoscopy (EGD) History of tonsillectomy Social History Smoking Status: Never smoker ROS ROS ED Constitutional Constitutional ED: Reports fever(s) and subjective; Denies chills Eyes Eyes: Denies blurry vision or change in vision ENT ENT ED: Denies rhinorrhea or sore throat Cardiovascular Cardiovascular: Denies chest pain or palpitations Respiratory/Chest Respiratory/Chest: Reports dyspnea; Denies cough Gastrointestinal Gastrointestinal: Reports nausea; Denies vomiting Genitourinary Genitourinary ED: Denies dysuria or hematuria Musculoskeletal Musculoskeletal: Denies back pain or neck pain Integumentary Denies abscess or rash Neurologic Neurologic: Reports headache(s); Denies weakness Allergic/Immunologic Allergic/Immunologic ED: Denies mouth swelling or urticaria EXAM Physical Exam Const Vital Signs: 07/01/23 14:54 07/01/23 15:55 07/01/23 16:55 Temperature 99 F 98.2 F 98.0 F Temperature Source Temporal Oral Oral Pulse Rate 88 80 75 Respiratory Rate 18 12 12 Blood Pressure 166/99 H 131/79 H 123/67 H Blood Pressure Mean 121 96 85 Pulse Ox 97 98 99 Oxygen Delivery Method Room Air Room Air Room Air Positive well nourished, well developed and obese General Appearance ED: well developed and NAD Nutritional Appearance: obese HEENT Reports moist mucous membranes Neck full ROM and supple Resp normal respiratory effort, no retractions and clear to auscultation bilaterally Cardio regular rate and regular rhythm GI non-tender and non-distended Palpation: soft Extremity Extremity Narrative: Is edema and erythema over the medial aspect of the right ankle. There is a healing wound over the lateral aspect of the right ankle. There is some discharge coming from the wound on the aspect of the ankle. Pedal pulses are equal bilaterally. Range of motion was limited in all motions of the right ankle secondary to pain. Sensation was intact to light touch in all digits. Capillary refill was less than 2 seconds in all digits. Neuro oriented x3, CN's II-XII intact bilaterally, moves all extremities and no sensory deficits noted Sensorium / Orientation: alert Motor Exam: strength 5/5 throughout Psych mental status grossly normal Skin Skin Narrative: There is a healing wound over the lateral aspect of the right ankle. There is some mild discharge coming from this wound. MDM MDM MDM Narrative Medical decision making narrative: Differential diagnosis includes cellulitis, osteomyelitis, abscess, sepsis, and postsurgical infection. X-rays of the right ankle will be obtained to assess for osteomyelitis and soft tissue air. CBC will be obtained to assess for leukocytosis and anemia. Basic metabolic profile will be obtained to assess for electrolyte abnormality and renal function. Wound culture will be obtained to assess for wound infection. Blood cultures will be obtained to assess for sepsis. Lactate will be obtained to assess for sepsis. Chest x-ray will be obtained to assess for pneumonia. Lab Data Attestation: I reviewed the patient's lab results. Lab results narrative: CBC was reviewed and was within normal limits. Basic metabolic profile was reviewed and was within normal limits. PT with INR and PTT were reviewed and were within normal limits. Serum lactate was reviewed and was slightly elevated at 2.8. Labs: Laboratory Results - last 24 hr 07/01/23 15:35 WBC 6.8 RBC 5.11 Hgb 13.0 Hct 42.8 MCV 83.8 MCH 25.4 L MCHC 30.4 L RDW Std Deviation 44.1 H RDW Coeff of Juan 14.5 Plt Count 377 MPV 9.3 Immature Gran % (Auto) 0.900 Neut % (Auto) 76.3 H Lymph % (Auto) 11.8 L [place] % (Auto) 8.4 Eos % (Auto) 2.2 Baso % (Auto) 0.4 Absolute Neuts (auto) 5.2 Absolute Lymphs (auto) 0.80 L Nucleated RBC % 0 PT 14.0 INR 1.1 APTT 30.0 Sodium 141 Potassium 3.5 Chloride 107 Carbon Dioxide 25.0 Anion Gap 9 BUN 5 L Creatinine 0.76 Estim Creat Clear Calc 163.90 Est GFR (MDRD) Af Amer 108 Est GFR (MDRD) Non-Af 89 BUN/Creatinine Ratio 6.5 L Glucose 94 Lactic Acid 2.8 H* Calcium 9.4 Radiography Diagnostic Testing: Clinical Impression(s) from Imaging Studies Ankle X-Ray 07/01/23 15:55 IMPRESSION: Stable appearance of a recently performed tight rope implant placement with hardware in the distal tibia and fibula no complications Persistent diffuse soft tissue swelling Electronically Signed: Didier Trejo MD at 16:16 EST Reading Location ID and State: [facility] / [place] , Service support , Chest X-Ray 07/01/23 15:55 IMPRESSION: Normal x-ray examination of the chest. Electronically Signed: Didier Trejo MD at 16:20 EST , Portable 1 view chest x-ray was obtained. On my independent interpretation, lung laird are clear. There is normal cardiac silhouette. Bony thorax is normal. There is no acute process noted. Radiologist also interpreted the x-ray and agrees. X-rays of the right ankle were obtained. There are 3 views. On my independent interpretation, there is no acute fracture or dislocation. There is some soft tissue swelling noted. There is no evidence of osteomyelitis. Radiologist also interpreted the x-rays and agrees. Management Discussion w/another healthcare provider: Store Loss Prevention Manager (Dr. Cummins) Treatment and Re-Evaluation Narrative: Patient was given a dose of Zosyn and vancomycin here. Patient was given a dose of morphine and Zofran. Patient was advised of her findings. Case was discussed with Dr. Cummins from podiatry. He agrees with the treatment and will follow-up as an outpatient tomorrow. Patient was instructed to continue her Augmentin as previously prescribed. Patient was instructed to return if worse in any way. Patient understood and was agreeable with the plan. All questions were answered. Discharge Plan Triage Chief Complaint: Lower Extremity Injury ED Provider: Kevin Fregoso Dx/Rx/DC Orders Clinical Impression: Other acute postprocedural pain, Wound infection Instructions: ED Wound Check (Infection) Prescriptions: No Action pantoprazole 40 MG tablet 40 mg PO BID Zyrtec 10 MG capsule 10 mg PO DAILY Veramist 2 spray NASAL DAILY gabapentin 600 mg tablet 600 mg PO TID Patient Comments: TAKE 1 TABLET BY MOUTH THREE TIMES DAILY FOR RESTLESS LEG SYNDROM sucralfate 1 gram tablet 2 g PO QHS Patient Comments: TAKE 1 TABLET BY MOUTH BEFORE MEALS AND AT BEDTIME. ferrous sulfate 325 mg (65 mg iron) tablet 325 mg PO QODAY Patient Comments: TAKE 1 TABLET BY MOUTH EVERY OTHER DAY escitalopram oxalate 20 mg tablet 20 mg PO DAILY Patient Comments: TAKE 1 TABLET BY MOUTH EVERY DAY buprenorphine HCl [Belbuca] 300 mcg film 300 mcg BUCCAL BID Patient Comments: DISSOLVE ON TONGUE 2 TIMES A DAY FOR 28 DAYS Xywav 0.5 gram/mL Solution 4.25 g PO 0030 albuterol sulfate [Ventolin HFA] 90 mcg/actuation HFA aerosol inhaler 2 puff inhalation Q4H PRN PRN (Reason: Wheezing) Qty: 1 0RF Xywav 0.5 gram/mL solution 4 g PO 0300 Rx Instructions: administer the first dose at bedtime and the second dose 2.5-4 hours later colestipol 1 gram tablet 2 g PO QHS Patient Comments: take 1 tablet by mouth twice a day mycophenolate mofetil 500 mg tablet 1,500 mg PO BID Patient Comments: take 3 tablets by mouth twice a day modafinil 200 mg tablet 200 mg PO DAILY Patient Comments: take 1 tablet by mouth every morning Benlysta 120 mg recon soln 120 mg IV QMONTH cholecalciferol (vitamin D3) 25 mcg (1,000 unit) capsule 1,000 unit PO DAILY Patient Comments: take 1 capsule by mouth once daily famotidine 40 mg tablet 40 mg PO DAILY Patient Comments: take 1 tablet by mouth once daily prednisone 10 mg tablet 10 mg PO DAILY Patient Comments: take 3 tablets by mouth daily for 1 week then 2 daily for 1 week then 1 daily for 1 week then STOP doxycycline hyclate 100 mg capsule 100 mg PO DAILY Qty: 10 0RF aspirin 325 mg tablet 325 mg PO DAILY Qty: 20 0RF ondansetron 4 mg tablet,disintegrating 4 mg PO Q8H Qty: 28 0RF oxycodone-acetaminophen 5-325 mg tablet 1 tab PO Q8H PRN (Reason: pain) 7 Days Qty: 28 0RF Primary Care Provider: Almaz Rosas Referrals: Almaz Rosas MD [Primary Care Provider] - Rick Cummins DPM [Med Staff - Active Staff] - 1 Day for another exam Disposition Disposition: Home, Self Care
--- NOTE | 2023-07-01 15:55 | RAD_ITS ---
STUDY: X-RAY CHEST REASON FOR EXAM: Female, 38 years old. Dyspnea TECHNIQUE: Single AP portable view of the chest. COMPARISON: 01/09/2021 FINDINGS: The lungs are clear and expanded. There is no demonstrated pleural abnormality. Normal size heart. Normal mediastinum and palmira. Normal visualized pulmonary arteries. Normal visualized aortic arch and descending thoracic aorta. Normal visualized thoracic spine. Normal visualized ribs, clavicles, and shoulders. There is no demonstrated abnormality of the visualized soft tissue structures of the upper abdomen. RAD/Chest 1 View (Portable) IMPRESSION: Normal x-ray examination of the chest. Electronically Signed: Didier Trejo MD at 16:20 EST ,
--- NOTE | 2023-07-01 15:55 | RAD_ITS ---
STUDY: X-RAY - RIGHT ANKLE REASON FOR EXAM: Female, 38 years old. Injury/Pain TECHNIQUE: 3 view(s) of the ankle. COMPARISON: 04/24/2023 FINDINGS: No interval change in the appearance of a recent syndesmosis tight rope implant placement with anchors in the distal fibula and distal tibia and subcutaneous emphysema.. Normal medial and lateral malleoli. Normal tibiotalar articulation and ankle mortise. Previously noted fiberglass cast has been removed. Normal visualized talus and calcaneus. The visualized subtalar, talonavicular, calcaneocuboid and tarsal articulations are normal. Persistent diffuse soft tissue swelling. RAD/Ankle min 3 Views IMPRESSION: Stable appearance of a recently performed tight rope implant placement with hardware in the distal tibia and fibula no complications Persistent diffuse soft tissue swelling Electronically Signed: Didier Trejo MD at 16:16 EST ,
[2023-07-01] MEDS: Morphine 4 MG/ML Syringe IV (16:05)
[2023-07-01] MEDS: Ondansetron 4 MG/2 ML Vial IV (16:05)
[2023-07-01] MEDS: Piperacil/Tazobactam 3.375 GM in 0.9% Normal Saline (50mL MB+) 50 ML IV (16:22)
--- OUTSIDE RECORDS SUMMARY | 2023-07-01 16:27 | XMS RPT_ITS | CCD ---
Author Name Unknown Address [id number] [place] [address] Organization [facility] Care Team Providers Care Technical Buyer Name Role Phone Yani Aguilar MD Primary Care Provider TALAMPAS, YANI D Primary Care Unavailable TALAMPAS, YANI D Referring Unavailable TALAMPAS, YANI D Attending Unavailable TALAMPAS, YANI D Primary Care Unavailable CARMEN PENNINGTON Referring Unavailable CARMEN PENNINGTON Referring Unavailable TALAMPAS, YANI D Primary Care Unavailable TALAMPAS, YANI D Primary Care Unavailable RIVASMOE Referring Unavailable TALAMPAS, YANI D Primary Care Unavailable RIVASMOE Referring Unavailable TALAMPAS, YANI D Primary Care Unavailable ANA TOWNSEND Attending Unavailable TALAMPAS, YANI D Primary Care Unavailable RIVAS, ZOHAIBILEY Referring Unavailable TALAMPAS, YANI D Primary Care Unavailable TALAMPAS, YANI D Referring Unavailable CARMEN PENNINGTON Attending Unavailable TALAMPAS, YANI D Primary Care Unavailable TALAMPAS, YANI D Referring Unavailable MOE RIVAS Attending Unavailable TALAMPAS, YANI D Primary Care Unavailable TALAMPAS, YANI D Referring Unavailable CARMEN PENNINGTON Attending Unavailable TALAMPAS, YANI D Primary Care Unavailable MOE RIVAS Referring Unavailable TALAMPAS, YANI D Primary Care Unavailable ZOHAIB RIVASILEY Referring Unavailable TALAMPAS, YANI D Primary Care Unavailable CROW CANALES Attending Unavailable TALAMPAS, YANI D Primary Care Unavailable RIVASZOHAIBILEY Referring Unavailable TALAMPAS, YANI D Primary Care Unavailable MOE RIVAS Referring Unavailable TALAMPAS, YANI D Primary Care Unavailable CARMEN PENNINGTON Referring Unavailable TALAMPAS, YANI D Primary Care Unavailable MOE RIVAS Referring Unavailable TALAMPAS, YANI D Primary Care Unavailable ANA UMANA Attending Unavailable TALAMPAS, YANI D Primary Care Unavailable MOE RIVAS Referring Unavailable YANI AGUILAR Primary Care Unavailable MOE RIVAS Referring Unavailable YANI AGUILAR Primary Care Unavailable MOE RIVAS Referring Unavailable Yani Aguilar MD Primary Care Provider Allergies Allergy Classification Reported Allergen(s) Allergy Type Date of Onset Reaction(s) Facility (20 sources) Cephalexin; Translations: [CEPHALEXIN] Drug Allergy 04-23-20 16 Vomiting [facility] (20 sources) Ciprofloxacin; Translations: [CIPROFLOXACIN] Drug Allergy 03-12-20 16 Swelling [facility] Work Phone: (20 sources) inFLIXimab; Translations: [INFLIXIMAB] Drug Allergy 10-22-19 12 Rash, Other: See Comments [facility] (20 sources) lamoTRIgine; Translations: [LAMOTRIGINE] Drug Allergy 09-25-19 17 Swelling [facility] (20 sources) montelukast; Translations: [MONTELUKAST SODIUM] Drug Allergy 12-08-19 12 Intolerance [facility] Work Phone: (20 sources) riTUXimab; Translations: [RITUXIMAB] Drug Allergy 08-27-19 12 Other: See Comments [facility] Work Phone: (20 sources) Sulfamethoxazole / Trimethoprim; Translations: [SULFAMETHOXAZOLE-T RIMETHOPRIM] Drug Allergy 03-04-20 16 Rash [facility] Work Phone: (20 sources) Environmental [Other] Propensity to adverse reactions 08-27-19 12 Unknown [facility] (20 sources) Streptococcus pneumoniae serotype 1 capsular antigen diphtheria [id number] protein conjugate vaccine / Streptococcus pneumoniae serotype 14 capsular antigen diphtheria [id number] protein conjugate vaccine / Streptococcus pneumoniae serotype 18C capsular antigen diphtheria IRI742 protein conjugate vaccine / Streptococcus pneumoniae serotype 19A capsular antigen diphtheria QNT753 protein conjugate vaccine / Streptococcus pneumoniae serotype 19F capsular antigen diphtheria MGW725 protein conjugate vaccine / Streptococcus pneumoniae serotype 23F capsular antigen diphtheria QBB808 protein conjugate vaccine / Streptococcus pneumoniae serotype 3 capsular antigen diphtheria DAU521 protein conjugate vaccine / Streptococcus pneumoniae serotype 4 capsular antigen diphtheria URD129 protein conjugate vaccine / Streptococcus pneumoniae serotype 5 capsular antigen diphtheria KGI134 protein conjugate vaccine / Streptococcus pneumoniae serotype 6A capsular antigen diphtheria [id number] protein conjugate vaccine / Streptococcus pneumoniae serotype 6B capsular antigen diphtheria VAC296 protein conjugate vaccine / Streptococcus pneumoniae serotype 7F capsular antigen diphtheria TVB147 protein conjugate vaccine / Streptococcus pneumoniae serotype 9V capsular antigen diphtheria GAA925 protein conjugate vaccine; Translations: [PNEUMOC 13-SERA CONJ-DIP CR(PF)] Drug Allergy 05-12-20 22 Intolerance [facility] Work Phone: (1 source) OTHER; Translations: [OTHER] Propensity to adverse reactions (disorder) 08-27-19 [facility] Repository Medications Current Medications Medication Drug Class(es) Dates Sig (Normalized) Sig (Original) [id number] 200 actuat albuterol 0.09 mg/actuat metered dose inhaler (20 sources) beta2-Adrenergic Agonist Start: 08-02-2021 End: 09-19-2023 take 2 puff(s) by inhalation every six hours as needed for wheezing albuterol HFA (PROVENTIL HFA, VENTOLIN HFA) 90 mcg/actuation inhaler Inhale 2 Puffs as instructed every 6 hours as needed for wheezing/shortnes s of breath. 1 Each 5 09/19/2022 09/19/2023 Active Completed/Discontinued Medications Medication Drug Class(es) Dates Sig (Normalized) Sig (Original) benzonatate 100 mg oral capsule (20 sources) Non-narcotic Antitussive Start: 06-10-2022 take 100-200 mg by mouth every eight hours as needed for cough and cough benzonatate (TESSALON PERLES) 100 mg capsule Indications: Acute cough Take 1-2 capsules by mouth three times daily as needed. 60 capsule 0 06/10/2022 Active Problems Active Problems Problem Classification Problem Date Documented Date Episodic/Chronic Allergic reactions (20 sources) Environmental allergy; Translations: [Other allergy status, other than to drugs and biological substances] Onset: 3 09-20-2013 Episodic Esophageal disorders (20 sources) Gastroesophageal reflux disease; Translations: [Gastro-esophageal reflux disease without esophagitis] Onset: 1 03-31-2011 Chronic Genitourinary symptoms and ill-defined conditions (4 sources) Urinary symptoms ; Translations: [Unspecified symptoms and signs involving the genitourinary system] Episodic Malaise and fatigue (1 source) Fatigue; Translations: [Other fatigue] Episodic Mood disorders (20 sources) Depressive disorder; Translations: [Depression] Onset: 1 09-11-2020 Chronic Nausea and vomiting (1 source) Nausea, vomiting and diarrhea; Translations: [Nausea with vomiting, unspecified] Episodic Nutritional deficiencies (2 sources) Vitamin D deficiency; Translations: [Vitamin D deficiency, unspecified] Chronic Nutritional deficiencies (2 sources) Serum iron low; Translations: [Iron deficiency] Episodic Osteoarthritis (20 sources) Primary gonarthrosis, bilateral; 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] 11-01-2020 Chronic Other aftercare (12 sources) Patient encounter status; Translations: [Other [place] [facility] (current[facility] drug therapy] Episodic Other aftercare (1 source) Long-term current use of immunosuppressive drug; Translations: [Long-term use of immunosuppressant medication] Episodic Other aftercare (1 source) Postoperative visit; Translations: [Encounter for planned postprocedural wound closure] 04-22-2023 Episodic Other circulatory disease (20 sources) Hypersensitivity angiitis; 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 Other connective tissue disease (2 sources) Finding of thigh; Translations: [Other specified soft tissue disorders] Episodic Other connective tissue disease (1 source) Peroneal tendinitis of right lower limb; Translations: [Peroneal tendinitis, right leg] 04-28-2023 Episodic Other gastrointestinal disorders (1 source) Postcholecystectomy diarrhea; Translations: [Diarrhea, unspecified] Episodic Other injuries and conditions due to external causes (1 source) Injury of right peroneal nerve; Translations: [Injury of peroneal nerve at lower leg level, right leg, subsequent encounter] 04-22-2023 Episodic Other liver diseases (20 sources) Non-alcoholic fatty liver; Translations: [Fatty (change of) liver, not elsewhere classified] Onset: 1 10-02-2020 Chronic Other liver diseases (1 source) Steatosis of liver; Translations: [Fatty (change of) liver, not elsewhere classified] Chronic Other lower respiratory disease (1 source) Cough; Translations: [Acute cough] Episodic Other nervous system disorders (20 sources) Narcolepsy; Translations: [Narcolepsy without cataplexy] Onset: 2 09-03-2011 Chronic Other nervous system disorders (1 source) [id number]; Translations: [Other abnormalities of gait and mobility] 04-28-2023 Episodic Other nutritional; endocrine; and metabolic disorders (20 sources) Severe obesity; Translations: [Morbid (severe) obesity due to excess calories] Onset: 7 01-02-2021 Chronic Other nutritional; endocrine; and metabolic disorders (1 source) Morbid (severe) obesity due to excess calories; Translations: [Class 3 severe obesity due to excess calories with body mass index (BMI) of 50.0 to 59.9 in adult, unspecified whether serious comorbidity present (HCC)] Onset: 1 Chronic Other nutritional; endocrine; and metabolic disorders (1 source) Body mass index (BMI) 50.0-59.9, adult; Translations: [Class 3 severe obesity due to excess calories with body mass index (BMI) of 50.0 to 59.9 in adult, unspecified whether serious comorbidity present (HCC)] Onset: 1 Chronic Other screening for suspected conditions (not mental disorders or infectious disease) (1 source) Other specified abnormal findings of blood chemistry; Translations: [Other abnormal blood chemistry] Episodic Other skin disorders (2 sources) Finding of color of limb; Translations: [Disorder of pigmentation, unspecified] Episodic Other upper respiratory disease (1 source) Allergic rhinitis; Translations: [Other allergic rhinitis] Chronic Other upper respiratory disease (1 source) Congestion of nasal sinus; Translations: [Nasal congestion] Episodic Residual codes; unclassified (20 sources) Sleep apnea; Translations: [Sleep apnea, unspecified] Onset: 2 Chronic Residual codes; unclassified (2 sources) Postoperative state; Translations: [Other specified postprocedural states] 04-22-2023 Episodic Sprains and strains (1 source) Sprain of right ankle; Translations: [Sprain of unspecified ligament of right ankle, subsequent encounter] 04-22-2023 Episodic Systemic lupus erythematosus and connective tissue disorders (20 sources) Mucous membrane dryness; Translations: [Sicca syndrome, unspecified] Onset: 5 Chronic Viral infection (1 source) Viral disease; Translations: [Viral infection, unspecified] Episodic Past or Other Problems Problem Classification Problem Date Documented Da te Episodic/Chronic Abdominal pain (20 sources) Right upper quadrant pain; Translations: [Right upper quadrant pain] Onset: 10-02-2020 10-02-2020 Episodic Administrative/social admission (20 sources) Stress due to family tension; Translations: [Other specified problems related to primary support group] Onset: 09-11-2020 09-11-2020 Episodic Biliary tract disease (20 sources) Biliary dyskinesia; Translations: [Other specified diseases of gallbladder] Onset: 12-07-2012 12-07-2012 Episodic Other aftercare (1 source) Other long term care pharmacist (current) drug therapy; Translations: [Encounter for long-term (current) use of medications] Onset: 11-11-2022 Episodic Other circulatory disease (20 sources) Orthostatic hypotension; Translations: [Orthostatic hypotension] Onset: 09-03-2011 09-03-2011 Episodic Other connective tissue disease (20 sources) Fibromyalgia; Translations: [Fibromyalgia] Onset: 09-03-2011 09-03-2011 Episodic Other connective tissue disease (1 source) Fibromyalgia; Translations: [Fibromyalgia] Onset: 09-03-2011 Episodic Other hematologic conditions (20 sources) Increased serum protein level; Translations: [Abnormality of plasma protein, unspecified] Onset: 08-26-2005 01-21-2018 Episodic Other inflammatory condition of skin (20 sources) Urticarial vasculitis; 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] Onset: 09-03-2011 09-03-2011 Episodic Other liver diseases (1 source) Abnormal levels of other serum enzymes; Translations: [Elevated liver enzymes] Onset: 11-24-2022 Episodic Other non-traumatic joint disorders (20 sources) Joint pain; Translations: [Pain in unspecified joint] Onset: 09-03-2011 09-03-2011 Episodic Other skin disorders (20 sources) Eruption; Translations: [Rash and other nonspecific skin eruption] Onset: 07-08-2022 Episodic Other skin disorders (1 source) Rash and other nonspecific skin eruption; Translations: [Rash and nonspecific skin eruption] Onset: 07-08-2022 Episodic Results Test Name Value Interpretation Reference Range Facil ity Vital Signs Date Time Vital Sign Value Performing Clinician Althea mckeon 05-25-2023 14:17-0500 Diastolic blood pressure 78 mm[Hg] Treatment Stro [facility] 05-25-2023 14:17-0500 Heart rate 81 /min Treatment [facility] 05-25-2023 14:17-0500 Systolic blood pressure 131 mm[Hg] Treatment [facility] 05-25-2023 12:30-0500 Body temperature 98.91 [degF] Treatment [facility] 05-25-2023 12:30-0500 Body weight 164.2 kg Treatment [facility] 05-25-2023 12:30-0500 Respiratory rate 18 /min Treatment [facility] 05-25-2023 12:30-0500 SaO2% (BldA) [Mass fraction] 94 % Treatment [facility] 03-23-2023 12:00-0400 Body temperature 97.81 [degF] Treatment [facility] 03-23-2023 12:00-0400 Body weight 158.17 kg Treatment [facility] 03-23-2023 12:00-0400 Diastolic blood pressure 88 mm[Hg] Treatment [facility] 03-23-2023 12:00-0400 Heart rate 61 /min Treatment [facility] 03-23-2023 12:00-0400 Respiratory rate 16 /min Treatment [facility] 03-23-2023 12:00-0400 SaO2% (BldA) [Mass fraction] 100 % Treatment [facility] 03-23-2023 12:00-0400 Systolic blood pressure 140 mm[Hg] Treatment [facility] 02-24-2023 12:36-0400 Body temperature 98.01 [degF] Treatment [facility] 02-24-2023 12:36-0400 Diastolic blood pressure 79 mm[Hg] Treatment [facility] 02-24-2023 12:36-0400 Heart rate 66 /min Treatment [facility] 02-24-2023 12:36-0400 Respiratory rate 16 /min Treatment [facility] 02-24-2023 12:36-0400 SaO2% (BldA) [Mass fraction] 100 % Treatment [facility] 02-24-2023 12:36-0400 Systolic blood pressure 123 mm[Hg] Treatment [facility] 01-26-2023 13:38-0400 Body temperature 96.69 [degF] Treatment [facility] 01-26-2023 13:38-0400 Diastolic blood pressure 51 mm[Hg] Treatment [facility] 01-26-2023 13:38-0400 Heart rate 71 /min Treatment [facility] 01-26-2023 13:38-0400 Respiratory rate 18 /min Treatment [facility] 01-26-2023 13:38-0400 SaO2% (BldA) [Mass fraction] 100 % Treatment [facility] 01-26-2023 13:38-0400 Systolic blood pressure 112 mm[Hg] Treatment [facility] 01-26-2023 12:00-0400 Body weight 158.31 kg Treatment [facility] 12-29-2022 13:45-0400 Body temperature 97.59 [degF] Treatment Stro Work Phone: [facility] 12-29-2022 13:45-0400 Diastolic blood pressure 74 mm[Hg] Treatment Stro Work Phone: [facility] 12-29-2022 13:45-0400 Heart rate 69 /min Treatment Stro Work Phone: [facility] 12-29-2022 13:45-0400 Respiratory rate 18 /min Treatment Stro Work Phone: [facility] 12-29-2022 13:45-0400 SaO2% (BldA) [Mass fraction] 97 % Treatment Stro Work Phone: [facility] 12-29-2022 13:45-0400 Systolic blood pressure 133 mm[Hg] Treatment Stro Work Phone: [facility] 10-06-2022 12:00-0400 Body temperature 98.29 [degF] Treatment Stro Work Phone: [facility] 10-06-2022 12:00-0400 Body weight 164.2 kg Treatment Stro Work Phone: [facility] 10-06-2022 12:00-0400 Diastolic blood pressure 71 mm[Hg] Treatment Stro Work Phone: [facility] 10-06-2022 12:00-0400 Heart rate 72 /min Treatment Stro Work Phone: [facility] 10-06-2022 12:00-0400 Respiratory rate 16 /min Treatment Stro Work Phone: [facility] 10-06-2022 12:00-0400 Systolic blood pressure 125 mm[Hg] Treatment Stro Work Phone: [facility] 09-19-2022 15:24-0400 Body temperature 97.81 [degF] Yani Aguilar MD Work Phone: [facility] 09-19-2022 15:24-0400 Body weight 165.56 kg Yani Aguilar MD Work Phone: [facility] 09-19-2022 15:24-0400 Diastolic blood pressure 78 mm[Hg] Yani Aguilar MD Work Phone: [facility] 09-19-2022 15:24-0400 Heart rate 72 /min Yani Aguilar MD Work Phone: [facility] 09-19-2022 15:24-0400 Respiratory rate 18 /min Yani Aguilar MD Work Phone: [facility] 09-19-2022 15:24-0400 SaO2% (BldA) [Mass fraction] 98 % Yani Aguilar MD Work Phone: [facility] 09-19-2022 15:24-0400 Systolic blood pressure 124 mm[Hg] Yani Aguilar MD Work Phone: [facility] 08-25-2022 13:03-0500 Body temperature 98.49 [degF] Treatment Stro Work Phone: [facility] 08-25-2022 13:03-0500 Diastolic blood pressure 82 mm[Hg] Treatment Stro Work Phone: [facility] 08-25-2022 13:03-0500 Heart rate 81 /min Treatment Stro Work Phone: [facility] 08-25-2022 13:03-0500 Respiratory rate 18 /min Treatment Stro Work Phone: [facility] 08-25-2022 13:03-0500 SaO2% (BldA) [Mass fraction] 96 % Treatment Stro Work Phone: [facility] 08-25-2022 13:03-0500 Systolic blood pressure 137 mm[Hg] Treatment Stro Work Phone: [facility] 07-08-2022 12:46-0500 Diastolic blood pressure 83 mm[Hg] Moe Rivas MD Work Phone: [facility] 07-08-2022 12:46-0500 Heart rate 79 /min Moe Rivas MD Work Phone: [facility] 07-08-2022 12:46-0500 Systolic blood pressure 163 mm[Hg] Moe Rivas MD Work Phone: [facility] 07-08-2022 12:27-0500 Body height 180.3 cm Moe Rivas MD Work Phone: [facility] 07-08-2022 12:27-0500 Body temperature 98.91 [degF] Moe Rivas MD Work Phone: [facility] 07-08-2022 12:27-0500 Body weight 165.11 kg Moe Rivas MD Work Phone: [facility] 06-10-2022 12:35-0500 Body temperature 98.2 [degF] Randa Tran [employer] FI[employer]NAGER[employer] Work Phone: [facility] 06-10-2022 12:35-0500 Body weight 171.01 kg Randa Tran [employer]ARM FIELD MANAGER[employer] Work Phone: [facility] 06-10-2022 12:35-0500 Diastolic blood pressure 82 mm[Hg] Randa Tran [employer]ARM FIELD MANAGER[employer] Work Phone: [facility] 06-10-2022 12:35-0500 Heart rate 83 /min Randa Tran [employer]ARM FIELD MANAGER[employer] Work Phone: [facility] 06-10-2022 12:35-0500 Respiratory rate 16 /min Randa Tran [employer]ARM FIELD MANAGER[employer] Work Phone: [facility] 06-10-2022 12:35-0500 SaO2% (BldA) [Mass fraction] 97 % Randa Tran [employer]ARM FIELD MANAGER[employer] Work Phone: [facility] 06-10-2022 12:35-0500 Systolic blood pressure 124 mm[Hg] Randa Tran FARM FIELD MANAGER.[employer] Work Phone: [facility] 05-22-2022 14:26-0500 Body weight 172.82 kg Randa Tran FARM FIELD MANAGER.[employer] Work Phone: [facility] 05-22-2022 14:26-0500 Diastolic blood pressure 88 mm[Hg] Randa Tran [employer]ARM FIELD MANAGER.[employer] Work Phone: [facility] 05-22-2022 14:26-0500 Heart rate 91 /min Randa Tran [employer]ARM FIELD MANAGER.[employer] Work Phone: [facility] 05-22-2022 14:26-0500 Respiratory rate 20 /min Randa Tran [employer]ARM FIELD MANAGER.[employer] Work Phone: [facility] 05-22-2022 14:26-0500 SaO2% (BldA) [Mass fraction] 94 % Randa Tran [employer]ARM FIELD MANAGER.[employer] Work Phone: [facility] 05-22-2022 14:26-0500 Systolic blood pressure 138 mm[Hg] Randa Tran FARM FIELD MANAGER.[employer] Work Phone: [facility] 05-08-2022 14:15-0500 Body height 180.3 cm Carmen Pennington FARM FIELD MANAGER[employer] Work Phone: [facility] 05-08-2022 14:15-0500 Body temperature 98.29 [degF] Carmen Pennington [employer]ARM FIELD MANAGER[employer] Work Phone: [facility] 05-08-2022 14:15-0500 Body weight 174.18 kg Carmen Pennington [employer]ARM FIELD MANAGER[employer] Work Phone: [facility] 05-08-2022 14:15-0500 Diastolic blood pressure 67 mm[Hg] Carmen Pennington [employer]ARM FIELD MANAGER[employer] Work Phone: [facility] 05-08-2022 14:15-0500 Heart rate 82 /min Carmen Pennington [employer]ARM FIELD MANAGER[employer] Work Phone: [facility] 05-08-2022 14:15-0500 Systolic blood pressure 122 mm[Hg] Carmen Pennington [employer]ARM FIELD MANAGER[employer] Work Phone: [facility] 01-30-2022 13:55-0400 Diastolic blood pressure 87 mm[Hg] Carmen Pennington [employer]ARM FIELD MANAGER[employer] Work Phone: [facility] 01-30-2022 13:55-0400 Heart rate 87 /min Carmen Pennington [employer]ARM FIELD MANAGER[employer] Work Phone: [facility] 01-30-2022 13:55-0400 Systolic blood pressure 146 mm[Hg] Carmen Pennington [employer]ARM FIELD MANAGER[employer] Work Phone: [facility] 01-30-2022 13:52-0400 Body height 180.3 cm Carmen Pennington [employer]ARM FIELD MANAGER[employer] Work Phone: [facility] 01-30-2022 13:52-0400 Body temperature 98.01 [degF] Carmen Pennington FARM FIELD MANAGER[employer] Work Phone: [facility] 01-30-2022 13:52-0400 Body weight 167.83 kg Carmen Pennington [employer]ARM FIELD MANAGER[employer] Work Phone: [facility] Encounters Encounter Date Encounter Type Care Provider Facility Start: 06-24-2023 ambulatory Yani diallo MD Work Phone: Internal Medicine [facility] Start: 05-25-2023 End: 05-25-2023 ambulatory Treatment 12 [facility] Procedures Date Procedure Procedure Detail Performing Clinician Start: 01-26-2023 CREATININE BLD Carmen Pennington [employer] FI[employer]NA[employer] Work Phone: Start: 01-26-2023 Transferase alanine amino alt sgpt Carmen Pennington [employer] FI[employer] MANAGER[employer] Work Phone: Start: 06-10-2022 Urnls dip stick/tabl et rgnt auto w/o microscopy Randa Tran FARM FIELD MANAGER.[employer] Work Phone: Plan of Treatment Date Care Activity Detail Author Start: 12-20-2023 Influenza vaccination Influenza Vacc ine (#1) [facility] Immunizations Immunization Date Immunization Notes Care Provider Jovanny davenport 09-25-2016 pneumococcal conjuga te vaccine, 13 valent Moe Rivas MD Work Phone: [facility] 04-27-2006 influenza virus vaccine, unspecified formulation Moe Rivas MD Work Phone: [facility] 04-22-2004 influenza virus vaccine, unspecified formulation Moe Rivas MD Work Phone: [facility] 09-02-1988 diphtheria, tetanus toxoids and pertussis vaccine Moe Rivas MD Work Phone: [facility] Work Phone: 12-22-1984 diphtheria, tetanus toxoids and pertussis vaccine Moe Rivas MD Work Phone: [facility] Work Phone: 10-20-1984 trivalent poliovirus vaccine, live, oral Moe Rivas MD Work Phone: [facility] Work Phone: 08-14-1984 measles, mumps and rubella virus vaccine Moe Rivas MD Work Phone: [facility] Work Phone: 08-14-1984 rubella and mumps vi neptali vaccine Moe Rivas MD Work Phone: [facility] 1983 trivalent poliovirus vaccine, live, oral Moe Rivas MD Work Phone: [facility] Work Phone: 1983 diphtheria, tetanus toxoids and pertussis vaccine Moe Rivas MD Work Phone: [facility] Work Phone: 1983 diphtheria, tetanus toxoids and pertussis vaccine Moe Rivas MD Work Phone: [facility] Work Phone: 1983 trivalent poliovirus vaccine, live, oral Moe Rivas MD Work Phone: [facility] Work Phone: 1983 diphtheria, tetanus toxoids and pertussis vaccine Moe Rivas MD Work Phone: [facility] Work Phone: 1983 trivalent poliovirus vaccine, live, oral Moe Rivas MD Work Phone: [facility] Work Phone: Payers Date Payer Category Payer Medicare HUMANA MEDICARE HUMANA MEDICARE PPO [id number] 2021-Present [phone] [address] [address] [place] [address] PPO [id number] 2019 Medicaid FORMERLY [facility] MEDICAID [id number] 2019-Present [phone] [address] [place] [address] Medicaid [id number] 2019 Medicaid [employer] MEDICAID [id number] 2019-Present [phone] [address] [place] [address] Medicaid [id number] 2019 Medicaid [id number] 2017 Medicare [id number] 2017 Medicare [id number] Social History Date Type Detail Facility Start: 09-03-2011 Tobacco smoking stat [facility] Never smoked tobacco [facility] Work Phone: Start: 03-07-2021 End: 04-13-2023 Alcohol intake Current non-drinker of alcohol (finding) [facility] Start: 1985 Sex Assigned At Not on file [facility] Start: 09-03-2011 Tobacco use and exposure Smoke less tobacco non-user [facility] Work Phone: Start: 01-20-2022 End: 05-22-2022 Exposure to SARS-CoV-2 (event) Not sure [facility] Start: 07-29-2022 History SDOH Alcohol Frequency 1 [facility] Start: 07-29-2022 History SDOH Alcohol Std Drinks 0 [facility] Start: 07-29-2022 History SDOH Social Connections Phone 5 [facility] Start: 07-29-2022 History SDOH Social Connections Get Together 98 [facility] Start: 07-29-2022 History SDOH Stress 4 [facility] Start: 07-29-2022 History SDOH Financial 2 [facility] Start: 07-29-2022 History SDOH Housing Unable to Pay 3 [facility] Start: 07-29-2022 End: 11-03-2022 History of Social function [facility] Start: 07-29-2022 End: 11-03-2022 Social connection and isolation panel [facility] How often do you get together with friends or relatives? Patient refused [facility] Are you now , , , , never or living with a partner? [facility] How often to you hav e a drink containing alcohol? Never [facility] How hard is it for y ou to pay for the very basics like food, housing, medical care, and heating Hard [facility] Do you feel stress - tense, restless, nervous, or anxious, or unable to sleep at night because your mind is troubled all the time - these days [OSQ] Rather much [facility] (I/We) worried enoch er (my/our) food would run out before (I/we) got money to buy more. DK or Refused [facility] Clinical Notes 11-13-2011 to 06-24-2023 Telephone Encounter - Matilde Olivera LPN - 05/26/2023 9:16 AM ESTTelephone Encounter - Matilde Olivera LPN - 05/26/2023 8:16 AM Gael Durbin RN - 05/25/2023 12:41 PM EST Note Date & Type Note Facility 06-24-2023 Note Patient Outreach (IN [facility]) DARRYL NIHCOLS ([id number]) 1985 F NFR Date Time Provider Department 06/24/23 YANI AGUILAR During your visit today, we recorded the following information about you: Allergies As of Date: 06/24/2023 Noted Allergy Reaction BACTRIM (SULFAMETHOXAZOLE-TRIMETH*03/04/20 16 2 - Rash CEPHALEXIN 04/23/2016 11 - Vomiting CIPROFLOXACIN 03/12/2016 7 - Swelling Environmental [Other] 08/27/2011 16 - Unknown Comments: cat, dog, horse, alternaria, grasses, trees, dust mites, ragweed LAMICTAL (LAMOTRIGINE) 09/24/2016 7 - Swelling Comments: Facial swelling PREVNAR 13 (PNEUMOC 13-SERA CONJ-D*05/12/2022 5 - Intolerance Comments: Lymph nodes puffed up; skin rash REMICADE (INFLIXIMAB) 10/22/2011 2 - Rash 14 - Other: See Comments Comments: TIGHTNESS IN THROAT RITUXAN (RITUXIMAB) 08/27/2011 14 - Other: See Comments Comments: Difficulty breathing, sensation of throat closure SINGULAIR (MONTELUKAST SODIUM) 12/08/2011 5 - Intolerance Comments: Nausea, lightheaded Date Reviewed: 05/25/2023 Reviewed by: Gael Flowers, RN - Fully Assessed Visit Diagnosis:Encounter for screening mammogram for breast cancer [Z12.31] Order(s):[facility] SCREENING [[id number]] Order #: [id number] FUTURE Prescriptions as of 06/29/2023 - pantoprazole DR (PROTONIX) 40 mg tablet take 1 tablet by mouth twice a day - colestipol (COLESTID) 1 gram tablet take 1 tablet by mouth twice a day - famotidine (PEPCID) 40 mg tablet Take 1 tablet by mouth once daily. - predniSONE (DELTASONE) 10 mg tablet Take by mouth with food. Take 30mg(3 tabs)/day x1 week, then 20mg (2 tabs)/day x1 week, then 10mg (1 tab)/day x1 week, then stop. - Cholecalciferol, Vitamin D3, 25 mcg (1,000 unit) cap Take 1 capsule by mouth once daily. - ferrous sulfate 325 mg (65 mg iron) tablet Take 1 tablet by mouth every other day. - sucralfate (CARAFATE) 1 gram tablet Take 1 tablet by mouth twice daily. As directed - mycophenolate Mofetil (CELLCEPT) 500 mg tablet take 3 tablets by mouth twice a day - pimecrolimus (ELIDEL) 1 % cream Apply to affected area twice daily. - tacrolimus (PROTOPIC) 0.1 % ointment Apply to affected area twice daily. - albuterol HFA (PROVENTIL HFA, VENTOLIN HFA) 90 mcg/actuation inhaler Inhale 2 Puffs as instructed every 6 hours as needed for wheezing/shortness of breath. - EPINEPHrine (EPIPEN) 0.3 mg/0.3 mL auto-injector Use as directed for allergic reaction - escitalopram oxalate (LEXAPRO) 20 mg tablet Take 1 tablet by mouth once daily. - gabapentin (NEURONTIN) 600 mg tablet 1800mg/day - betamethasone dipropionate (DIPROSONE) 0.05 % cream Apply to affected area twice daily. for up to 2 weeks for rash on hand or leg - XYWAV 0.5 gram/mL soln - BELBUCA 300 mcg buccal film q 12 HR. - Miscellaneous Medical Supply (COMPRESSION STOCKINGS) KNEE HIGH AT 20-30 MMHG COMPRESSION FOR CHRONIC VENOUS INSUFFICIENCY ASSOCIATED WITH DIZZINESS. JOBST, SIGVARIS OR SPA BRAND TO BE WORN DURING DAYTIME HOURS AND REMOVED PRIOR TO BEDTIME - Cane nayeli Cane per patient preference. R26.81 gait instability - nystatin (MYCOSTATIN) powder Apply 1 application to affected area four times daily. As needed - fluticasone (ALLERGY RELIEF, FLUTICASONE,) 50 mcg/actuation nasal spray Use 2 Sprays in each nostril once daily. (Sensamist OTC brand) - cetirizine (ZYRTEC) 10 mg tablet Take 1 tablet by mouth once daily. - SODIUM OXYBATE (XYREM ORAL) Take by mouth twice daily. 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] 11/12/2011 DVT prophylaxis [JGG8978] 11/13/2011 01/02/2021 DISPOSITION AND FOLLOW-UP [V999.01] 11/13/2011 01/02/2021 Biliary dyskinesia [K82.8] 12/07/2012 Environmental allergies [Z91.09] Class 3 severe obesity with body mass index (BM*10/23/2016 Acute tonsillitis [J03.90] 01/02/2021 Depression, recurrent (HCC) [F33.9] 09/11/2020 Stress due to family tension [Z63.8] 09/11/2020 NAFL (nonalcoholic fatty liver) [K76.0] 10/02/2020 Chronic RUQ pain [R10.11, G89.29] 10/02/2020 Primary osteoarthritis of both knees [M17.0] Systemic lupus erythematosus (HCC) [M32.9] 07/08/2022 Rash and nonspecific skin eruption [R21] 07/08/2022 Encounter Status:Closed by EPIC, PRODUSER on 06/29/23 [facility] 05-26-2023 Miscellaneous Notes Duplicate request. Matilde Olivera LPN documented in this encounter [facility] 05-26-2023 Miscellaneous Notes Patient has been identified by name and date of : Yes Patient phones for refill(s): Requested Prescriptions Pending Prescriptions Disp Refills pantoprazole DR (PROTONIX) 40 mg tablet [Pharmacy Med Name: PANTOPRAZOLE SOD DR 40 MG TAB] 180 tablet 3 Sig: take 1 tablet by mouth twice a day colestipol (COLESTID) 1 gram tablet [Pharmacy Med Name: COLESTIPOL HCL 1 GM TABLET] 180 tablet 1 Sig: take 1 tablet by mouth twice a day Date of last office visit in primary care: 04/13/2023 Date of next office visit in primary care: 05/25/2023 Last 2 Encounter Wt Readings: Date: Wt: 05/25/2023 164.2 kg (362 lb) 04/13/2023 159.2 kg (351 lb) Previous labs/tests for medication: Not applicable Please advise. Thank you. Matilde Olivera LPN. documented in this encounter [facility] 05-25-2023 Note HNO ID: [id number] Author: Gael Flowers RN Service: ? Author Type: Registered Nurse Type: Progress Notes Filed: 05/25/2023 2:57 PM Note Text: Patient offered bathroom assistance throughout treatment? Yes PRE-INFUSION SCREENING Since your last infusion have you: Had any major change in your health? No Been to the emergency room? No Been hospitalized? No Had any infections? No Taken any antibiotics? No Had surgery or do you have upcoming surgery? Yes, Amy COVINGTON aware and ok for treatment today. In the past 7 days have you had: Fevers/chills/night sweats? No New cough or cold symptoms (including sore throat)? No Nausea, vomiting, diarrhea? No Unusual swelling in your ankles or feet? No Burning/blood with urination or urinary frequency? No New weakness, numbness, stumbling, or falls? No New rash or open sores? No [facility] 05-25-2023 History of Present illness Narrative Patient offered bathroom assistance throughout treatment? Yes PRE-INFUSION SCREENING Since your last infusion have you: Had any major change in your health? No Been to the emergency room? No Been hospitalized? No Had any infections? No Taken any antibiotics? No Had surgery or do you have upcoming surgery? Yes, Amy COVINGTON aware and ok for treatment today. In the past 7 days have you had: Fevers/chills/night sweats? No New cough or cold symptoms (including sore throat)? No Nausea, vomiting, diarrhea? No Unusual swelling in your ankles or feet? No Burning/blood with urination or urinary frequency? No New weakness, numbness, stumbling, or falls? No New rash or open sores? No documented in this encounter [facility] 04-30-2023 Miscellaneous Notes Apt booked. Yessenia Mahoney LPN Had a preop visit in March. Can schedule a 6 month follow up for next year. The following approved medication requests have been transmitted electronically. Requested Prescriptions Signed Prescriptions Disp Refills famotidine (PEPCID) 40 mg tablet 30 tablet 5 Sig: Take 1 tablet by mouth once daily. Authorizing Provider: YANI AGUILAR MD MARYELLEN: 04/13/2023 Last refill: 10/21/2022 QTY: 30 Refills: 5 documented in this encounter [facility] 04-28-2023 Miscellaneous Notes Order and face-2-face has been faxed to [employer]. Yes, if she would like to see if they are helpful then ok to refer to [facility]. Order placed. Pt had ankle surgery 04/24/23. Pt will be non wt bearing 4-6 wks. Pt has been trying to get home health help. Pt states [facility] can offer OT to help her get organized & be able to care for herself. Pt is asking if provider would recommend OT? Please advise. Crista Rosas LPN documented in this encounter [facility] 04-21-2023 Miscellaneous Notes Pt states she called her insurance and the approval of [facility] is pending on the approval of the surgery. I told her she would need to call her surgeon to ask about the prior authorization on the surgery. She states the surgery is 3 days away and would think this should all be done by now. She said they had told her after she had called this provider office before that [facility] in [place] was covered by them, but it all hinged on the surgery being covered first. She is asking if provider could send the referral to this Home Care for her, and she is going to call the surgeon about the PA on the surgery. I would recommend that when she calls insurance about [facility] she should see if they cover for an aide to help with home care/ADLs. If they do not cover it then she can self pay for someone to come help for a few hours a day. IF not able to do that she may need to discuss short term rehab placement with her surgeon. Patient reports [facility], let her know they do not take her insurance. Patient to call insurance to find out what [facility] company they do cover. Patient will let provider know. Report the surgeon actually informed her, he wants to do the dressing changes until she is healed, and her step mom has agreed to take her to the appts weekly for dressing changes. Surgeon also got her a transfer seat. Reports she will be NWB for 4-6 weeks after surgery. Patient asking if Ana knows, if she could get someone in to help her with bathing, getting in and out of tub? Reports she has noone to help her with that. Please advise patient. documented in this encounter [facility] 04-13-2023 Note HNO ID: [id number] Author: Ana Umana APRN.[employer] Service: ? Author Type: Nurse Practitioner Type: Progress Notes Filed: 04/14/2023 11:16 AM Note Text: SUBJECTIVE Darryl Nichols is a 37 year old female here today for a check up on her medical problems and for pre-op eval. Chief Complaint Patient presents with: Pre-Op Exam: right foot repair with Dr. Rick Cummins HPI Darryl Nichols is an 37 year old female presents to the office for pre-op examination. Is scheduled to have repair of right foot perineal brevis tendon and anterior inferior tibofibular ligament / syndesmosis of the right ankle done in the next few weeks (exact date is still TBD) by Dr. Cummins [facility]. History of having anesthesia: Yes. Any reaction from anesthesia in the past: No. Personal history of heart disease: No. Currently taking a blood thinner: No. Patient denies chest pain, SOB, dizziness, palpitations, one sided weakness, dropping of face or mouth, fever, or recent sickness. No history of CVA or SC. Labs, chest xray, EKG obtained or will be obtained and reviewed. History is significant for Sleep apnea and uses CPAP therapy. Well controlled. Lupus, sjogren's for which she follows with rheumatology, fibromyalgia for which she receives treatment for chronic pain for and depression. Overall her chronic conditions are stable. Previously had an EKG done in 2020 that was normal sinus rhythm and she has had no changes in cardiac history since then. Most recent chest xray was in 2020 and normal. Her medications were reviewed today and her list is now up to date. Medications Current Outpatient Medications Medication Sig predniSONE (DELTASONE) 10 mg tablet Take by mouth with food. Take 30mg(3 tabs)/day x1 week, then 20mg (2 tabs)/day x1 week, then 10mg (1 tab)/day x1 week, then stop. Cholecalciferol, Vitamin D3, 25 mcg (1,000 unit) cap Take 1 capsule by mouth once daily. ferrous sulfate 325 mg (65 mg iron) tablet Take 1 tablet by mouth every other day. sucralfate (CARAFATE) 1 gram tablet Take 1 tablet by mouth twice daily. As directed mycophenolate Mofetil (CELLCEPT) 500 mg tablet take 3 tablets by mouth twice a day colestipol (COLESTID) 1 gram tablet Take 1 tablet by mouth twice daily. For postcholecystectomy syndrome famotidine (PEPCID) 40 mg tablet Take 1 tablet by mouth once daily. pimecrolimus (ELIDEL) 1 % cream Apply to affected area twice daily. tacrolimus (PROTOPIC) 0.1 % ointment Apply to affected area twice daily. albuterol HFA (PROVENTIL HFA, VENTOLIN HFA) 90 mcg/actuation inhaler Inhale 2 Puffs as instructed every 6 hours as needed for wheezing/shortness of breath. EPINEPHrine (EPIPEN) 0.3 mg/0.3 mL auto-injector Use as directed for allergic reaction escitalopram oxalate (LEXAPRO) 20 mg tablet Take 1 tablet by mouth once daily. gabapentin (NEURONTIN) 600 mg tablet 1800mg/day pantoprazole DR (PROTONIX) 40 mg tablet Take 1 tablet by mouth twice daily. betamethasone dipropionate (DIPROSONE) 0.05 % cream Apply to affected area twice daily. for up to 2 weeks for rash on hand or leg XYWAV 0.5 gram/mL soln BELBUCA 300 mcg buccal film q 12 HR. nystatin (MYCOSTATIN) powder Apply 1 application to affected area four times daily. As needed fluticasone (ALLERGY RELIEF, FLUTICASONE,) 50 mcg/actuation nasal spray Use 2 Sprays in each nostril once daily. (Sensamist OTC brand) cetirizine (ZYRTEC) 10 mg tablet Take 1 tablet by mouth once daily. Miscellaneous Medical Supply (COMPRESSION STOCKINGS) KNEE HIGH AT 20-30 MMHG COMPRESSION FOR CHRONIC VENOUS INSUFFICIENCY ASSOCIATED WITH DIZZINESS. JOBST, SIGVARIS OR SPA BRAND TO BE WORN DURING DAYTIME HOURS AND REMOVED PRIOR TO BEDTIME Cane nayeli Cane per patient preference. R26.81 gait instability SODIUM OXYBATE (XYREM ORAL) Take by mouth twice daily. (Patient not taking: Reported on 04/13/2023) No current facility-administered medications for this visit. 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 - RTX infusion started 11/12 4 pm, complained of chest and throat tightness ~6pm, and infusion stopped immediately. On assessment, vitals stable and given 50 mg Benadryl IV, symptoms improved over next few hrs (more content not included)... [facility] 03-30-2023 Miscellaneous Notes Patient is notified of message below and verbalized understanding of instructions. Varsha Mccullough MA Prescription has been refilled. Please let her know she should be off prednisone at least 1 to 2 weeks prior to surgery but would double check with her surgeon when they would want her to be off of it Patient has been identified by name and date of : Yes RX INSTRUCTIONS: Patient aware RX will be sent to pharmacy. No need to notify patient. Patient is requesting a refill on the Prednisone. She is having surgery the beginning of April, and would like to take it up until she needs to stop it before surgery. LAST APPOINTMENT: 11/11/2022 UPCOMING APPOINTMENT: 07/13/2023 LABS: Hemoglobin (g/dL) Date Value 01/26/2023 13.1 08/06/2021 12.3 Hematocrit (%) Date Value 01/26/2023 42.9 08/06/2021 39.7 WBC (k/uL) Date Value 01/26/2023 6.99 08/06/2021 9.22 Platelet Count (k/uL) Date Value 01/26/2023 299 08/06/2021 253 AST Date Value Ref Range Status 01/26/2023 25 13 - 35 U/L Final ALT Date Value Ref Range Status 01/26/2023 26 7 - 38 U/L Final Creatinine Date Value Ref Range Status 01/26/2023 0.58 0.58 - 0.96 mg/dL Final No results found for: URICACID Varsha Mccullough MA Patient has been identified by name and date of : Yes Requested Prescriptions Pending Prescriptions Disp Refills predniSONE (DELTASONE) 10 mg tablet 42 tablet 0 Sig: Take by mouth with food. Take 30mg(3 tabs)/day x1 week, then 20mg (2 tabs)/day x1 week, then 10mg (1 tab)/day x1 week, then stop. Patient is requesting a refill on the Prednisone. She is having surgery the beginning of April, and would like to take it up until she needs to stop it before surgery. RX INSTRUCTIONS: Patient requesting a call when RX is approved and sent to the pharmacy. Please call patient at: [phone]. Carina Lucas documented in this encounter [facility] 03-23-2023 Note HNO ID: [id number] Author: Armida Arechiga RN Service: ? Author Type: Registered Nurse Type: Progress Notes Filed: 03/26/2023 4:10 PM Note Text: Patient offered bathroom assistance throughout treatment? Yes .PRE-INFUSION SCREENING Since your last infusion have you: Had any major change in your health? No Been to the emergency room? No Been hospitalized? No Had any infections? No Taken any antibiotics? No Had surgery or do you have upcoming surgery? Yes In the past 7 days have you had: Fevers/chills/night sweats? No New cough or cold symptoms (including sore throat)? No Nausea, vomiting, diarrhea? No Unusual swelling in your ankles or feet? No Burning/blood with urination or urinary frequency? No New weakness, numbness, stumbling, or falls? No New rash or open sores? No [facility] 03-23-2023 History of Present illness Narrative Patient offered bathroom assistance throughout treatment? Yes .PRE-INFUSION SCREENING Since your last infusion have you: Had any major change in your health? No Been to the emergency room? No Been hospitalized? No Had any infections? No Taken any antibiotics? No Had surgery or do you have upcoming surgery? Yes In the past 7 days have you had: Fevers/chills/night sweats? No New cough or cold symptoms (including sore throat)? No Nausea, vomiting, diarrhea? No Unusual swelling in your ankles or feet? No Burning/blood with urination or urinary frequency? No New weakness, numbness, stumbling, or falls? No New rash or open sores? No documented in this encounter [facility] 03-09-2023 Note HNO ID: [id number] Author: Carmen Pennington APRN.GIRISH Service: ? Author Type: Nurse Practitioner Type: Progress Notes Filed: 03/09/2023 1:49 PM Note Text: Follow-up of Sjogren's and related vasculitis HPI: To review, Darryl Nichols is a 37 year old female - At age 17, she had syncope. Thought to have POTS. Then developed a leg rash with red spots also of the soles of the feet. Seen by derm, skin bx with cutaneous vasculitis. Saw [facility] rheum, diagnosed with Sjogren's per bloodwork, no salivary gland biopsy done and ophthalmology evaluation concluded adequate tear production. - Was in [place] for a few years, saw neurologist starting around . Diagnosed with ARMIDA and narcolepsy (prescribes the xywav and gabapentin - In October, seen by Dr. 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 Has tried: prednisone up to 80mg/day (improved first 2-3 weeks, then symptoms recurred), colchicine x1-2 months (GI SE), AZA x1 week (lightheaded/dizzy), MTX PO x6-8 months (ineffective), humira x2 doses (ineffective), remicade (reaction w/SOB and facial swelling) and rituxan (throat swelling/closing). She gave up on everything after seeing Dr. Rodriguez, didn't follow with rheumatology for a while thereafter - With longstanding depression since at least , has had a couple of episodes where she was suicidal. Started on lexapro for depression/anxiety. Sees a psychologist. - In May, reported re-establishing with rheumatology. With rash primarily over the legs but had involved the trunk, sometimes upper extremities. On pred 20mg/day x5-6 months which initially helped but hadn't helped with regard to rash and pain, in particular the leg burning. Started on MMF - In Jul, reported 20% improvement in rash with MMF - In Apr, reported 40% improvement in rash with MMF (increased to 3g/day in Jan) - in 06/2022, reports feeling about the same. Feels like the inflammation is not quite as bad. Has been off prednisone at least 1 month. Rash is over ankles/feet. Can come up over the posterior legs/back when doing things. - Has some tightness of hands, pain in the knees, ankles, feet. Worse off prednisone. 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 PAST SURGICAL HISTORY Procedure Laterality Date ESOPHAGOGASTRODUODENOSCOPY TRANSORAL DIAGNOSTIC 07/28/13 EGD LAPS SURG CHOLECYSTECTOMY W/CHOLANGIOGRAPHY 12/07/12 Normal IOC, slightly bloodly fluid, right ovarian follicle RHINP PRIM LATANDALAR CRTLGSAND/ELVTN NASAL TI 2008 Rhinoplasty os septoplasty TONSILLECTOMY PRIMARY/SECONDARY Tonsillectomy ALLERGIES Allergen Reactions Bactrim [Sulfametho* Rash Cephalexin Vomiting Ciprofloxacin Swelling Environmental [Othe* Unknown cat, dog, horse, alternaria, grasses, trees, dust mites, ragweed Lamictal [Lamotrigi* Swelling Facial swelling Prevnar 13 [Pneumoc* Intolerance Lymph nodes puffed up; skin rash Remicade [Inflixima* Rash, Other: See Comments TIGHTNESS IN THROAT Rituxan [Rituximab] Other: See Comments Difficulty breathing, sensation of throat closure Singulair [Monteluk* Intolerance Nausea, lightheaded INTERVAL HISTORY This Team Access Model visit is a virtual encounter. It required patient-provider interaction for the medical decision making as documented below. I have communicated my name and active licensure. The patient's identity and physical location were verified at the time of this visit. Either the patient or their legal procurement representative has been informed of the risks and benefits of -- and alternatives to -- treatment through a remote evaluation and consents to proceed with the evaluation remotely. She is planning to have surgery on the R foot in fall 2022. No date is set yet. She started benlysta in 07/2022. She reports fatigue for 2 days after the infusions, but otherwise tolerates it well. Feels it helps with vasculitis. She has not noticed improvement of joint symptoms. She is following with pain management. Pain is worst in the morning and with activity. Sites of pain: upper and lower extremities, all joints, pain rated 6.5/10 Joint swelling: knees, feet, ankles, elbows, wrists, and hands EMS: stiffness lasts all day No recent infections. Tolerating meds. Answers submitted by the patient for this visit: Review of Systems Rheumatology (Submitted on 03/09/2023) Fever : No Recent Unintentional Weight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 treatment and for what allergies did she have before? Need diagnosis for type of arthritis for the referral. [facility] does allergy injections for allergens found on testing. Exposure therapy where they do desensitizing for things like food allergies would need to done by allergy/product analyst Spoke with patient. Patient would like to stay in [place] for her allergies. She states she would be fine seeing Dr. Ellis. Please place consult so referral can be sent over to their office. Referral for Dr. Carcamo has been sent. Filed consult to YULY Trammell in [facility] per her request. Does she know if her insurance covers for lithographing machine operator in [facility]? I am not sure who is in [facility] for allergy/immunology. We do not have anyone in [facility] without [facility]. Our allergists are at [facility] as far as closest site. Other option is ENT in [facility] (Dr. Albarran's and Dr. Vera at [facility]). See what she prefers to do. Images from the original note were not included. Pt advised of message. Would like to stay in [place] for GI. Please place consult. Also pt sent My Chart message on 11/01 regarding referral for her allergies. Pt would like to stay in [place] for this as well. Kadie Kendrick LPN November 01, 2022 Darryl Nichols to [facility] My Chart Rx Pool (supporting Yani Aguilar MD) JT 2:22 PM Hi! I'm messaging because, with the current pollen season being somewhat worse than in the past, I've been having some difficulty breathing (even with the Albuterol) and some skin irritation and am wondering if you could help me with the following: A.) Recommending a good lithographing machine operator, if you're familiar with one, for further treatment and possibly attempting exposure treatment again B.) Recommending any treatment courses that might help in the interim, until I can procure treatment from an lithographing machine operator I realize this may need more than a message so if an appointment would be necessary, please let me know - I'm happy to set one up LEFT MESSAGE FOR PATIENT TO CALL OFFICE. Does patient have a preference for GI consultation (as noted in Ana's message, referral if having symptoms)? Within [facility] but outside of [place] okay? Or does she need to stay in [place] and okay if outside of [facility] system? Patient returned call and given provider's message below with verbalized understanding. Patient reports she does have pain on right upper middle right side about every other day, worse at night, lasting about an hour, 4-7/10 at worst, no other symptoms with the pain. Called and left a voicemail for the Patient to call back and ask for a nurse to receive the providers message. Dayan Ashley RN Please call patient and let them know it looks like Carmen's note was referring to continue with monitoring the liver function with PCP office. Prior abdominal ultrasound in 2020 showed fatty liver which is likely the reason for the elevated liver enzymes. Overtime the numbers are stable and not continuing to elevate. It looks like Dr. Aguilar had discussed this with the virtual appointment 10/02/2020, recommended limited alcohol intake and working on healthy diet, increased physical activity and working on weight loss which is all helpful in reducing fatty liver. Continued monitoring of the liver enzymes can help to track if improving but if having any issues with right side pain that is persistent or worsening or nausea, decreased appetite, or diarrhea we could refer to GI. Prior hepatitis testing negative so we know that a hepatitis infection is not causing the liver issues which is good. Pt sees Carmen Pennington [employer] rheumatology & had labs drawn yesterday. Pt was notified by topper press operator automatic office to contact her pcp regarding liver function test results. Pt asking for direction. Crista Rosas LPN documented in this encounter [facility] 12-11-2022 Miscellaneous Notes Faxed. Form completed Deisy from [facility] and states that she had faxed over a certificate of medical necessity for lift chair on 11/24/2022 and asking if this was received? Deisy is going to fax over again and asking if provider can sign and fax back to [phone]. Beatriz Pennington RN documented in this encounter [facility] 12-01-2022 Note HNO ID: [id number] Author: Franchesca Phan RN Service: ? Author Type: Registered Nurse Type: Progress Notes Filed: 12/01/2022 5:15 PM Note Text: PRE-INFUSION SCREENING Since your last infusion have you: Had any major change in your health? No Been to the emergency room? No Been hospitalized? No Had any infections? No Taken any antibiotics? No Had surgery or do you have upcoming surgery? No In the past 7 days have you had: Fevers/chills/night sweats? No New cough or cold symptoms (including sore throat)? No Nausea, vomiting, diarrhea? No Unusual swelling in your ankles or feet? No Burning/blood with urination or urinary frequency? No New weakness, numbness, stumbling, or falls? No New rash or open sores? No [facility] 11-25-2022 Miscellaneous Notes [facility] calls to request diagnosis code for transfer bench order sent to them. M17.00 per problem list given. Lindsay Li RN documented in this encounter [facility] 11-14-2022 Miscellaneous Notes Noted Patient states that Dr. Cummins is recommending surgery on her right ankle that she injured several months ago. Maybe be seeing a form for a knee scooter and transfer shower bench. documented in this encounter [facility] 11-13-2022 Note HNO ID: [id number] Author: Carmen Pennington APRN.GIRISH Service: ? Author Type: Nurse Practitioner Type: Progress Notes Filed: 11/13/2022 1:02 PM Note Text: Orders Only on 11/13/22 HEPATIC FUNCTION PNL Carmen Pennington APRN.CNP [facility] 11-11-2022 Note HNO ID: [id number] Author: Carmen Pennington APRN.CNP Service: ? Author Type: Nurse Practitioner Type: Progress Notes Filed: 11/11/2022 4:00 PM Note Text: Follow-up of Sjogren's and related vasculitis HPI: To review, Darryl Nichols is a 37 year old female - At age 17, she had syncope. Thought to have POTS. Then developed a leg rash with red spots also of the soles of the feet. Seen by derm, skin bx with cutaneous vasculitis. Saw [facility] rheum, diagnosed with Sjogren's per bloodwork, no salivary gland biopsy done and ophthalmology evaluation concluded adequate tear production. - Was in [place] for a few years, saw neurologist starting around '. Diagnosed with ARMIDA and narcolepsy (prescribes the xywav and gabapentin - In October, seen by Dr. 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 Has tried: prednisone up to 80mg/day (improved first 2-3 weeks, then symptoms recurred), colchicine x1-2 months (GI SE), AZA x1 week (lightheaded/dizzy), MTX PO x6-8 months (ineffective), humira x2 doses (ineffective), remicade (reaction w/SOB and facial swelling) and rituxan (throat swelling/closing). She gave up on everything after seeing Dr. Rodriguez, didn't follow with rheumatology for a while thereafter - With longstanding depression since at least , has had a couple of episodes where she was suicidal. Started on lexapro for depression/anxiety. Sees a psychologist. - In May, reported re-establishing with rheumatology. With rash primarily over the legs but had involved the trunk, sometimes upper extremities. On pred 20mg/day x5-6 months which initially helped but hadn't helped with regard to rash and pain, in particular the leg burning. Started on MMF - In Jul, reported 20% improvement in rash with MMF - In Apr, reported 40% improvement in rash with MMF (increased to 3g/day in Jan) - at [facility], reports feeling about the same. Feels like the inflammation is not quite as bad. Has been off prednisone at least 1 month. Rash is over ankles/feet. Can come up over the posterior legs/back when doing things. - Has some tightness of hands, pain in the knees, ankles, feet. Worse off prednisone. 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 PAST SURGICAL HISTORY Procedure Laterality Date ESOPHAGOGASTRODUODENOSCOPY TRANSORAL DIAGNOSTIC 07/28/13 EGD LAPS SURG CHOLECYSTECTOMY W/CHOLANGIOGRAPHY 12/07/12 Normal IOC, slightly bloodly fluid, right ovarian follicle RHINP PRIM LATANDALAR CRTLGSAND/ELVTN NASAL TI 2007 Rhinoplasty os septoplasty TONSILLECTOMY PRIMARY/SECONDARY Tonsillectomy ALLERGIES Allergen Reactions Bactrim [Sulfametho* Rash Cephalexin Vomiting Ciprofloxacin Swelling Environmental [Othe* Unknown cat, dog, horse, alternaria, grasses, trees, dust mites, ragweed Lamictal [Lamotrigi* Swelling Facial swelling Prevnar 13 [Pneumoc* Intolerance Lymph nodes puffed up; skin rash Remicade [Inflixima* Rash, Other: See Comments TIGHTNESS IN THROAT Rituxan [Rituximab] Other: See Comments Difficulty breathing, sensation of throat closure Singulair [Monteluk* Intolerance Nausea, lightheaded INTERVAL HISTORY She is here for follow up. She is planning to have surgery on the R foot in fall 2022. No date is set yet. She started benlysta in 07/2022. She reports fatigue after the infusions, but otherwise tolerates it well. She reports 15-20% improvement overall with benlysta. She is following with pain management. Pain is worst in the morning. Sites of pain: low back, all joints, pain rated 6/10 Joint swelling: knees, feet, ankles EMS: yes, lasting 10-60 minutes No recent infections. Tolerating meds. REVIEW OF SYSTEMS GENERAL: No fevers HEENT: +headaches RESPIRATORY: Negative for cough, +wheezing and shortness of breath CARDIOVASCULAR: Negative for chest pain GI: No nausea, vomiting, or diarrhea : No history of dysuria SKIN: + rash to lower extremities and feet No gross hematuria or blood in stool No mouth or nasal sores No hair loss +fatigue +photosensitivity- fatigue Current Outpatient Medications Medication Sig mycophenolate Mofetil (CELLCEPT) 500 mg tablet take 3 tablets by mouth twice a day famotidine (PEPCID) 40 mg tablet Take 1 tablet by mouth once daily. pimecrolimus (ELIDEL) 1 % cream Apply to affected area twice daily. tacrolimus (PROTOPIC) 0.1 % ointment Apply to affected area twice daily. albuterol HFA (PROVENTIL HFA, VENTOLIN HFA) 90 mcg/actuation inhaler Inhale 2 Puffs as instru (more content not included)... [facility] 11-03-2022 Note HNO ID: [id number] Author: Trinidad Gallardo RN Service: ? Author Type: Registered Nurse Type: Progress Notes Filed: 11/03/2022 4:16 PM Note Text: Patient offered bathroom assistance throughout treatment? Yes [facility] 11-03-2022 Note HNO ID: [id number] Author: Trinidad Gallardo RN Service: ? Author Type: Registered Nurse Type: Progress Notes Filed: 11/03/2022 4:16 PM Note Text: PRE-INFUSION SCREENING Since your last infusion have you: Had any major change in your health? No Been to the emergency room? No Been hospitalized? No Had any infections? No Taken any antibiotics? No Had surgery or do you have upcoming surgery? No In the past 7 days have you had: Fevers/chills/night sweats? No New cough or cold symptoms (including sore throat)? No Nausea, vomiting, diarrhea? No Unusual swelling in your ankles or feet? No Burning/blood with urination or urinary frequency? No New weakness, numbness, stumbling, or falls? No New rash or open sores? No [facility] 11-03-2022 History of Present illness Narrative Patient offered bathroom assistance throughout treatment? Yes PRE-INFUSION SCREENING Since your last infusion have you: Had any major change in your health? No Been to the emergency room? No Been hospitalized? No Had any infections? No Taken any antibiotics? No Had surgery or do you have upcoming surgery? No In the past 7 days have you had: Fevers/chills/night sweats? No New cough or cold symptoms (including sore throat)? No Nausea, vomiting, diarrhea? No Unusual swelling in your ankles or feet? No Burning/blood with urination or urinary frequency? No New weakness, numbness, stumbling, or falls? No New rash or open sores? No documented in this encounter [facility] 10-27-2022 Miscellaneous Notes Form completed by Dr. Rivas and faxed back to [facility]. Confirmation received. Varsha Mccullough MA Forms received, filled out and placed in Dr. Rivas in basket for signature. Patricia Dominguez R.N. Per Dr. Rivas from telephone encounter 10/16/22 : Unfortunately for IV medications, we just don't allow for this to be administered at home due to safety issues, it would have to be done through the [facility] with the appropriate staff. Phone and spoke Roberth the pharmacy services representative. Roberth was given our fax number to fax paperwork to our office to fill out, stating the above reason why patient should not receive infusion at home for their records. Will wait for forms. Denisse from [facility] is calling about Darryl's infusions. They have noticed the amount of infusion patient has been having and would like to know if she is a candidate for home infusions. Please contact [facility] at [phone] documented in this encounter [facility] 10-21-2022 Miscellaneous Notes Patient has been identified by name and date of : Yes Patient phones for refill(s): Requested Prescriptions Pending Prescriptions Disp Refills famotidine (PEPCID) 40 mg tablet 30 tablet 1 Sig: Take 1 tablet by mouth once daily. Date of last office visit in primary care: 10/04/2022 No future appt scheduled. Last 2 Encounter Wt Readings: Date: Wt: 10/06/2022 164.2 kg (362 lb) 09/19/2022 165.6 kg (365 lb) Previous labs/tests for medication: Not applicable Please advise. Thank you. Matilde Olivera LPN documented in this encounter [facility] 10-17-2022 Miscellaneous Notes Form faxed to [employer]. Confirmation received. Varsha Mccullough MA [employer] is notified of message below and verbalized understanding. Form will need to be signed to deny the offer. Varsha Mccullough MA Unfortunately for IV medications, we just don't allow for this to be administered at home due to safety issues, it would have to be done through the [facility] with the appropriate staff. Called [employer]. Patient's insurance offers patient to receive Benlysta IV treatment at home administered by RN. In case of a reaction, provider's office would be notified. If Dr. Rivas s agreeable form is being faxed to our office to be completed otherwise patient can continue to receive treatments at the provider's office with no problem. Thanks, Varsha Mccullough MA Anay Swann phoned to check status of a Fax for Alternative site of care This fax was sent 10/08/2022 Please advise Anay [phone] documented in this encounter [facility] 10-14-2022 Note HNO ID: [id number] Author: Ana Townsend V, MD Service: ? Author Type: Physician Type: Progress Notes Filed: 10/14/2022 2:02 PM Note Text: PROGRESS NOTE: Parts of the documentation for this note were completed by Paddy Doyle Ma for Ana Townsend MD. October 14, 2022 12:50 PM. Darryl Nichols is a 37 year old female here for: Chief Complaint: Follow Up History of Present Ilness: Location: goes pretty much anywhere Duration: years Symptoms (growing, itching, bleeding, tender): pain, tender, bleeding, burning Current treatment: Gabapentin, Belbuca, Cellecept, compression hose, IV Benlysta Past treatments: orals, injectables, topical steroids, and infusions, methotrexate, Humira and Embrel, Remicade and Rituxan, Prednisone Narrative/Interval history: Patient states symptoms are complicated. Complains of burning and pain. Benlysta infusions started about 6 months ago. Morning stiffness and pain seems to be worse. Not on prednisone right now. Has tried steroid creams in the past but they haven't helped much. Was prescribed Tacrolimus 0.1% ointment for rash and itching behind knees and on hands. Helps with the itching. Hands are doing well today. Pertinent Past Medical History: History of melanoma? No History of non melanoma skin cancer? No History of atypical nevi? No History of blistering sunburns? Yes History of tanning bed use? No History of organ transplantation? No History of immunosuppression/exposure to radiation? Yes She has a past medical history of Environmental allergies, Infectious mononucleosis, Obesity, POTS (postural orthostatic tachycardia syndrome), Primary osteoarthritis of both knees, Sicca syndrome (), Sjogren's syndrome (), Sleep apnea, TMJ syndrome (2003), and Urticarial vasculitis (09/03/2011). She has no past medical history of Asthma, Bleeding ulcer, Bowel disease, Chronic obstructive pulmonary disease (COPD) ([facility]), Chronic renal insufficiency, Congestive heart failure ([facility]), Diabetes ([facility]), Dyslipidemia, Fracture, Hypertension, Myocardial infarct, old, Personal history of unspecified urinary disorder, Seizures ([facility]), Stroke ([facility]), or Thyroid disorder. Pertinent Family Medical History: History of melanoma? No Pertinent Social History: Current Smoker? No Other: : No : No Pacemaker/Defibrillator: No Aspirin/anticoagulant use: No History of valve replacement: No History of joint replacement: No Review of Systems: Constitutional: - Fever: no, chills: no, night sweats: no, cough: no, muscle aches: no, unintentional weight loss: no. Skin: No other skin complaints except as noted in HPI. Physical Exam: WD, WN, NAD. Normal mood and affect. Exam included: Face R arm L arm Digits, nails All normal except: - Hands clear today. - Declined lower extremity exam. Assessment and Plan: 1. Leukocytoclastic vasculitis (HCC) - Being managed by rheumatology. Small flare today per patient. Consider referral to complex dermatology if derm input is requested. 2. Hand eczema - Asking for non-greasy topical. - Start pimecrolimus (ELIDEL) 1 % cream; Apply to affected area twice daily. Labs/Imaging reviewed: yes Prior pathology reviewed: no Outside records reviewed: no External notes from each unique source reviewed: no Procedures: N/A Medical Decision Making: Problems: Low: Acute, uncomplicated illness or injury Risk: Moderate: Drug management Medical Decision Making Level: 3 - Low Return if symptoms worsen or fail to improve. or sooner if concerns/questions. Medications / Allergies / Immunizations: has a current medication list which includes the following prescription(s): tacrolimus, albuterol hfa, epinephrine, famotidine, cholestyramine, mycophenolate mofetil, escitalopram oxalate, gabapentin, benzonatate, pantoprazole dr, betamethasone dipropionate, colestipol, ferrous sulfate, cholecalciferol (vitamin d3), sucralfate, fluconazole, xywav, belbuca, belbuca, miscellaneous medical supply, cane, nystatin, fluticasone, cetirizine, sodium oxybate, and pimecrolimus. ALLERGIES Allergen Reactions Bactrim [Sulfametho* Rash Cephalexin Vomiting Ciprofloxacin Swelling Environmental [Othe* Unknown cat, dog, horse, alternaria, grasses, trees, dust mites, ragweed Lamictal [Lamotrigi* Swelling Facial swelling Prevnar 13 [Pneumoc* Intolerance Lymph nodes puffed up; skin rash Remicade [Inflixima* Rash, Other: See Comments TIGHTNESS IN THROAT Rituxan [Rituximab] Other: See Comments Difficulty breathing, sensation of throat closure Singulair [Monteluk* Intolerance Nausea, lightheaded I agree with the Chief Complaint, ROS, and Past Histories independently gathered by the clinical child support agent and the remaining scribed note accurately describes my personal service to the patient. Ana Townsend MD Dermatology [facility] 10-14-2022 History of Present illness Narrative PROGRESS NOTE: Parts of the documentation for this note were completed by Paddy Doyle Ma for Ana Townsend MD. October 14, 2022 12:50 PM. Darryl Nichols is a 37 year old female here for: Chief Complaint: Follow Up History of Present Ilness: Location: goes pretty much anywhere Duration: years Symptoms (growing, itching, bleeding, tender): pain, tender, bleeding, burning Current treatment: Gabapentin, Belbuca, Cellecept, compression hose, IV Benlysta Past treatments: orals, injectables, topical steroids, and infusions, methotrexate, Humira and Embrel, Remicade and Rituxan, Prednisone Narrative/Interval history: Patient states symptoms are complicated. Complains of burning and pain. Benlysta infusions started about 6 months ago. Morning stiffness and pain seems to be worse. Not on prednisone right now. Has tried steroid creams in the past but they haven't helped much. Was prescribed Tacrolimus 0.1% ointment for rash and itching behind knees and on hands. Helps with the itching. Hands are doing well today. Pertinent Past Medical History: History of melanoma? No History of non melanoma skin cancer? No History of atypical nevi? No History of blistering sunburns? Yes History of tanning bed use? No History of organ transplantation? No History of immunosuppression/exposure to radiation? Yes She has a past medical history of Environmental allergies, Infectious mononucleosis, Obesity, POTS (postural orthostatic tachycardia syndrome), Primary osteoarthritis of both knees, Sicca syndrome (HCC), Sjogren's syndrome (), Sleep apnea, TMJ syndrome (2003), and Urticarial vasculitis (09/03/2011). She has no past medical history of Asthma, Bleeding ulcer, Bowel disease, Chronic obstructive pulmonary disease (COPD) ([facility]), Chronic renal insufficiency, Congestive heart failure (HCC), Diabetes (HCC), Dyslipidemia, Fracture, Hypertension, Myocardial infarct, old, Personal history of unspecified urinary disorder, Seizures ([facility]), Stroke (HCC), or Thyroid disorder. Pertinent Family Medical History: History of melanoma? No Pertinent Social History: Current Smoker? No Other: : No : No Pacemaker/Defibrillator: No Aspirin/anticoagulant use: No History of valve replacement: No History of joint replacement: No Review of Systems: Constitutional: - Fever: no, chills: no, night sweats: no, cough: no, muscle aches: no, unintentional weight loss: no. Skin: No other skin complaints except as noted in HPI. Physical Exam: WD, WN, NAD. Normal mood and affect. Exam included: Face R arm L arm Digits, nails All normal except: - Hands clear today. - Declined lower extremity exam. Assessment and Plan: 1. Leukocytoclastic vasculitis (HCC) - Being managed by rheumatology. Small flare today per patient. Consider referral to complex dermatology if derm input is requested. 2. Hand eczema - Asking for non-greasy topical. - Start pimecrolimus (ELIDEL) 1 % cream; Apply to affected area twice daily. Labs/Imaging reviewed: yes Prior pathology reviewed: no Outside records reviewed: no External notes from each unique source reviewed: no Procedures: N/A Medical Decision Making: Problems: Low: Acute, uncomplicated illness or injury Risk: Moderate: Drug management Medical Decision Making Level: 3 - Low Return if symptoms worsen or fail to improve. or sooner if concerns/questions. Medications / Allergies / Immunizations: has a current medication list which includes the following prescription(s): tacrolimus, albuterol hfa, epinephrine, famotidine, cholestyramine, mycophenolate mofetil, escitalopram oxalate, gabapentin, benzonatate, pantoprazole dr, betamethasone dipropionate, colestipol, ferrous sulfate, cholecalciferol (vitamin d3), sucralfate, fluconazole, xywav, belbuca, belbuca, miscellaneous medical supply, cane, nystatin, fluticasone, cetirizine, sodium oxybate, and pimecrolimus. ALLERGIES Allergen Reactions Bactrim [Sulfametho* Rash Cephalexin Vomiting Ciprofloxacin Swelling Environmental [Othe* Unknown cat, dog, horse, alternaria, grasses, trees, dust mites, ragweed Lamictal [Lamotrigi* Swelling Facial swelling Prevnar 13 [Pneumoc* Intolerance Lymph nodes puffed up; skin rash Remicade [Inflixima* Rash, Other: See Comments TIGHTNESS IN THROAT Rituxan [Rituximab] Other: See Comments Difficulty breathing, sensation of throat closure Singulair [[place]* Intolerance Nausea, lightheaded I agree with the Chief Complaint, ROS, and Past Histories independently gathered by the clinical child support agent and the remaining scribed note accurately describes my personal service to the patient. Ana Townsend MD Dermatology documented in this encounter [facility] 10-06-2022 Note HNO ID: [id number] Author: Trinidad Gallardo RN Service: ? Author Type: Registered Nurse Type: Progress Notes Filed: 10/06/2022 4:14 PM Note Text: PRE-INFUSION SCREENING Since your last infusion have you: Had any major change in your health? No Did fall and strain her foot, yet to be seen by physician Been to the emergency room? No Been hospitalized? No Had any infections? No Taken any antibiotics? No Had surgery or do you have upcoming surgery? No In the past 7 days have you had: Fevers/chills/night sweats? No New cough or cold symptoms (including sore throat)? No Nausea, vomiting, diarrhea? No Unusual swelling in your ankles or feet? No Burning/blood with urination or urinary frequency? No New weakness, numbness, stumbling, or falls? No New rash or open sores? No .stro [facility] 10-06-2022 History of Present illness Narrative PRE-INFUSION SCREENING Since your last infusion have you: Had any major change in your health? No Did fall and strain her foot, yet to be seen by physician Been to the emergency room? No Been hospitalized? No Had any infections? No Taken any antibiotics? No Had surgery or do you have upcoming surgery? No In the past 7 days have you had: Fevers/chills/night sweats? No New cough or cold symptoms (including sore throat)? No Nausea, vomiting, diarrhea? No Unusual swelling in your ankles or feet? No Burning/blood with urination or urinary frequency? No New weakness, numbness, stumbling, or falls? No New rash or open sores? No .stro documented in this encounter [facility] 09-19-2022 Note HNO ID: [id number] Author: Yani Aguilar MD Service: ? Author Type: Physician Type: Progress Notes Filed: 09/29/2022 8:19 PM Note Text: This note was created using [employer]. Subjective Darryl Nichols iPatient presents with: F/U 6 months SUBJECTIVE: Darryl Nichols is a 37 year old year old lady here today for 6 month follow up appointment for review of medical conditions. Tolerating new med infusion. Hoping by 6th infusion to see some improvement in SLE symptoms. New stiffness in hands and pretty much every joint in AM noted. Needs to get moving. 1 to 2 hours. Wonder if med or the weather. Rash on hands still; also behind both knees, worse on left. TAC and diprosone did not help much. Noted gets allergies in the spring. Gets grass allergies really bad. Colestipol on back order. Dr. Alvarado in [place] for neurology. Trying to get Provigil or Nuvigil. Trying to cook more at home. Hard to cook for one. 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 cholestyramine (QUESTRAN) 4 gram packet Take 1 Packet by mouth twice daily with meals. As directed mycophenolate Mofetil (CELLCEPT) 500 mg tablet take 3 tablets by mouth twice a day escitalopram oxalate (LEXAPRO) 20 mg tablet Take 1 tablet by mouth once daily. gabapentin (NEURONTIN) 600 mg tablet 1800mg/day pantoprazole DR (PROTONIX) 40 mg tablet Take 1 tablet by mouth twice daily. betamethasone dipropionate (DIPROSONE) 0.05 % cream Apply to affected area twice daily. for up to 2 weeks for rash on hand or leg colestipol (COLESTID) 1 gram tablet Take 1 tablet by mouth twice daily. For postcholecystectomy syndrome ferrous sulfate 325 mg (65 mg iron) tablet Take 1 tablet by mouth every other day. Cholecalciferol, Vitamin D3, 25 mcg (1,000 unit) cap Take 1 capsule by mouth once daily. sucralfate (CARAFATE) 1 gram tablet Take 1 tablet by mouth twice daily. As directed albuterol HFA (PROVENTIL HFA, VENTOLIN HFA) 90 mcg/actuation inhaler Inhale 2 Puffs as instructed every 6 hours as needed for wheezing/shortness of breath. fluconazole (DIFLUCAN) 150 mg tablet For treatment of recurrent yeast infection Take every 72 hours for 3 doses then once weekly for 6 months XYWAV 0.5 gram/mL soln BELBUCA 300 mcg buccal film q 12 HR. Miscellaneous Medical Supply (COMPRESSION STOCKINGS) KNEE HIGH AT 20-30 MMHG COMPRESSION FOR CHRONIC VENOUS INSUFFICIENCY ASSOCIATED WITH DIZZINESS. JOBST, SIGVARIS OR SPA BRAND TO BE WORN DURING DAYTIME HOURS AND REMOVED PRIOR TO BEDTIME EPINEPHrine (EPIPEN) 0.3 mg/0.3 mL auto-injector Use as directed for allergic reaction Cane nayeli Cane per patient preference. R26.81 gait instability fluticasone (ALLERGY RELIEF, FLUTICASONE,) 50 mcg/actuation nasal spray Use 2 Sprays in each nostril once daily. (Sensamist OTC brand) cetirizine (ZYRTEC) 10 mg tablet Take 1 tablet by mouth once daily. benzonatate (TESSALON PERLES) 100 mg capsule Take 1-2 capsules by mouth three times daily as needed. BELBUCA 150 mcg film Dissolve 1 Film under the tongue twice daily. (Patient not taking: Reported on 09/19/2022) nystatin (MYCOSTATIN) powder Apply 1 application to affected area four times daily. As needed (Patient not taking: Reported on 09/19/2022) SODIUM OXYBATE (XYREM ORAL) Take by mouth twice daily. (Patient not taking: Reported on 09/19/2022) No current facility-administered medications for this visit. Review of Systems Objective BP 124/78 Pulse 72 Temp 36.6 ?C (97.8 ?F) Resp 18 Wt (!) 165.6 kg (365 lb) LMP 04/14/2022 SpO2 98% BMI 50.91 kg/m? Last 5 Encounter Wt Readings: Date: Wt: 09/19/2022 165.6 kg (365 lb) 09/08/2022 164.8 kg (363 lb 4.8 oz) 08/11/2022 162.4 kg (358 lb) 07/08/2022 165.1 kg (364 lb) 06/10/2022 171 kg (377 lb) No waist measurement recorded Estimated body mass index is 50.91 kg/m? as calculated from the following: Height as of 07/08/22: 180.3 cm (5' 11 ). Weight as of this encounter: 165.6 kg (365 lb). Last 5 Encounter BP Readings: Date: BP: 09/19/2022 124/78 09/08/2022 136/73 08/25/2022 137/82 08/11/2022 133/78 07/08/2022 163/83 Physical Exam Constitutional: Appearance: Normal appearance. HENT: Head: Normocephalic. Eyes: General: Scleral icterus: protopic. Conjunctiva/sclera: Conjunctivae normal. Cardiovascular: Rate and Rhythm: Normal rate and regular rhythm. Heart sounds: Normal heart sounds. Pulmonary: Effort: Pulmonary effort is normal. Breath soun (more content not included)... [facility] 09-19-2022 Instructions Yani Aguilar MD - 09/19/2022 4:21 PM EDT Deep Nutrition Fat Burn Fix Author Kiya Otto documented in this encounter [facility] 09-19-2022 History of Present illness Narrative This note was created using [employer]. Subjective Darryl Nichols iPatient presents with: F/U 6 months SUBJECTIVE: Darryl Nichols is a 37 year old year old lady here today for 6 month follow up appointment for review of medical conditions. Tolerating new med infusion. Hoping by 6th infusion to see some improvement in SLE symptoms. New stiffness in hands and pretty much every joint in AM noted. Needs to get moving. 1 to 2 hours. Wonder if med or the weather. Rash on hands still; also behind both knees, worse on left. TAC and diprosone did not help much. Noted gets allergies in the spring. Gets grass allergies really bad. Colestipol on back order. Dr. Alvarado in [place] for neurology. Trying to get Provigil or Nuvigil. Trying to cook more at home. Hard to cook for one. 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 cholestyramine (QUESTRAN) 4 gram packet Take 1 Packet by mouth twice daily with meals. As directed mycophenolate Mofetil (CELLCEPT) 500 mg tablet take 3 tablets by mouth twice a day escitalopram oxalate (LEXAPRO) 20 mg tablet Take 1 tablet by mouth once daily. gabapentin (NEURONTIN) 600 mg tablet 1800mg/day pantoprazole DR (PROTONIX) 40 mg tablet Take 1 tablet by mouth twice daily. betamethasone dipropionate (DIPROSONE) 0.05 % cream Apply to affected area twice daily. for up to 2 weeks for rash on hand or leg colestipol (COLESTID) 1 gram tablet Take 1 tablet by mouth twice daily. For postcholecystectomy syndrome ferrous sulfate 325 mg (65 mg iron) tablet Take 1 tablet by mouth every other day. Cholecalciferol, Vitamin D3, 25 mcg (1,000 unit) cap Take 1 capsule by mouth once daily. sucralfate (CARAFATE) 1 gram tablet Take 1 tablet by mouth twice daily. As directed albuterol HFA (PROVENTIL HFA, VENTOLIN HFA) 90 mcg/actuation inhaler Inhale 2 Puffs as instructed every 6 hours as needed for wheezing/shortness of breath. fluconazole (DIFLUCAN) 150 mg tablet For treatment of recurrent yeast infection Take every 72 hours for 3 doses then once weekly for 6 months XYWAV 0.5 gram/mL soln BELBUCA 300 mcg buccal film q 12 HR. Miscellaneous Medical Supply (COMPRESSION STOCKINGS) KNEE HIGH AT 20-30 MMHG COMPRESSION FOR CHRONIC VENOUS INSUFFICIENCY ASSOCIATED WITH DIZZINESS. JOBST, SIGVARIS OR SPA BRAND TO BE WORN DURING DAYTIME HOURS AND REMOVED PRIOR TO BEDTIME EPINEPHrine (EPIPEN) 0.3 mg/0.3 mL auto-injector Use as directed for allergic reaction Cane nayeli Cane per patient preference. R26.81 gait instability fluticasone (ALLERGY RELIEF, FLUTICASONE,) 50 mcg/actuation nasal spray Use 2 Sprays in each nostril once daily. (Sensamist OTC brand) cetirizine (ZYRTEC) 10 mg tablet Take 1 tablet by mouth once daily. benzonatate (TESSALON PERLES) 100 mg capsule Take 1-2 capsules by mouth three times daily as needed. BELBUCA 150 mcg film Dissolve 1 Film under the tongue twice daily. (Patient not taking: Reported on 09/19/2022) nystatin (MYCOSTATIN) powder Apply 1 application to affected area four times daily. As needed (Patient not taking: Reported on 09/19/2022) SODIUM OXYBATE (XYREM ORAL) Take by mouth twice daily. (Patient not taking: Reported on 09/19/2022) No current facility-administered medications for this visit. Review of Systems Objective BP 124/78 Pulse 72 Temp 36.6 C (97.8 F) Resp 18 Wt (!) 165.6 kg (365 lb) LMP 04/14/2022 SpO2 98% BMI 50.91 kg/m Last 5 Encounter Wt Readings: Date: Wt: 09/19/2022 165.6 kg (365 lb) 09/08/2022 164.8 kg (363 lb 4.8 oz) 08/11/2022 162.4 kg (358 lb) 07/08/2022 165.1 kg (364 lb) 06/10/2022 171 kg (377 lb) No waist measurement recorded Estimated body mass index is 50.91 kg/m as calculated from the following: Height as of 07/08/22: 180.3 cm (5' 11 ). Weight as of this encounter: 165.6 kg (365 lb). Last 5 Encounter BP Readings: Date: BP: 09/19/2022 124/78 09/08/2022 136/73 08/25/2022 137/82 08/11/2022 133/78 07/08/2022 163/83 Physical Exam Constitutional: Appearance: Normal appearance. HENT: Head: Normocephalic. Eyes: General: Scleral icterus: protopic. Conjunctiva/sclera: Conjunctivae normal. Cardiovascular: Rate and Rhythm: Normal rate and regular rhythm. Heart sounds: Normal heart sounds. Pulmonary: Effort: Pulmonary effort is normal. Breath sounds: Normal breath sounds. Musculoskeletal: Right lower leg: Edema (soft about 1 to 2+) present. Left lower leg: Edema present. Skin: General: Skin is warm and dry. Findings: Rash (on hands, more on riht with cluster of skin colored flat papulonodular lesions) present. Neurological: General: No focal deficit present. Mental Status: She is alert and oriented to person, place, and time. Psychiatric: Mood and Affect: Mood normal. Behavior: Behavior normal. Thought Content: Thought content normal. Judgment: Judgment normal. Component Latest Ref Rng & Units 05/08/2022 08/11/2022 WBC 3.70 - 11.00 k/uL 7.26 7.66 RBC 3.90 - 5.20 m/uL 5.07 5.17 Hemoglobin 11.5 - 15.5 g/dL 13.0 13.4 Hematocrit 36.0 - 46.0 % 42.9 42.4 MCV 80.0 - 100.0 fL 84.6 82.0 MCH 26.0 - 34.0 pg 25.6 (L) 25.9 (L) MCHC 30.5 - 36.0 g/dL 30.3 (L) 31.6 RDW-CV 11.5 - 15.0 % 16.0 (H) 15.0 Platelet Count 150 - 400 k/uL 277 298 MPV 9.0 - 12.7 fL 9.9 9.8 Neut% % 75.0 Abs Neut (ANC) 1.45 - 7.50 k/uL 5.44 Lymph% % 12.5 Abs Lymph 1.00 - 4.00 k/uL 0.91 (L) Owsley% % 8.4 Abs Owsley <0.87 k/uL 0.61 Eosin% % 3.0 Abs Eosin <0.46 k/uL 0.22 Baso% % 0.4 Abs Baso <0.11 k/uL 0.03 Immature Gran % % 0.7 IMMATURE GRANS (ABS) <0.10 k/uL 0.05 NRBC /100 WBC 0.0 Absolute nRBC <0.01 k/uL <0.01 <0.01 DTYPE Auto Protein, Urine Random 0 - 20 mg/dL 39 (H) Creatinine, Ur Random (UCRR) 20.0 - 300.0 mg/dL 478.4 (H) Protein/Creat Ratio <0.15 mg/mg 0.08 Creatinine 0.58 - 0.96 mg/dL 0.61 0.57 (L) eGFR >=60 mL/min/1.73m 118 119 AST 13 - 35 U/L 72 (H) 36 (H) ALT 7 - 38 U/L 47 (H) 41 (H) Albumin 3.9 - 4.9 g/dL 3.8 (L) WSR 0 - 20 mm/hr 10 20 CRP <0.9 mg/dL 1.0 (H) 1.0 (H) C3 86 - 166 mg/dL 155 160 C4 13 - 46 mg/dL 16 17 DNA Antibody <30 IU/mL 69.67 (H) Vitamin D 25 Hydroxy 31.0 - 80.0 ng/mL 34.4 DNA Antibody w/Confirmation <30 IU/mL 91.94 (H) 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 Hand eczema L30.9 tacrolimus (PROTOPIC) 0.1 % ointment 2. Class 3 severe obesity due to excess calories with body mass index (BMI) of 50.0 to 59.9 in adult, unspecified whether serious comorbidity present ([facility]) E66.01 Z68.43 Doing better with nutrition--Ensure if not eating well Above issues addressed with patient. Patient involved in shared decision making for management of medical issues. History and medications reviewed. Epic updated as needed Refills and/or prescriptions taken care of and meds adjusted as indicated after reviewed history, exam and labs. Health Maintenance reviewed. Updated record and/or ordered tests as recorded. Encouraged on efforts at healthy diet and regular exercise and adequate sleep. I spent a total of 47 minutes on the date of the service which included preparing to see the patient, [id number] patient care, completing clinical documentation, performing a medically appropriate examination, counseling and educating the patient/family/caregiver, and ordering medications, tests, or procedures. Yani Aguilar MD documented in this encounter [facility] 09-09-2022 Miscellaneous Notes Patient is notified of message below and verbalized understanding. Varsha Mccullough MA Please let her know the maintenance benlysta infusions are indeed given every 4 weeks. Thanks. Patient currently scheduled for BENLYSTA infusions about every 28 days. Patient thought it would be every 3 months after first infusion. Needs to speak to clinical to clarify dosing/treatment plan. documented in this encounter [facility] 09-08-2022 Note HNO ID: [id number] Author: Gael Flowers RN Service: ? Author Type: Registered Nurse Type: Progress Notes Filed: 09/08/2022 2:31 PM Note Text: Patient offered bathroom assistance throughout treatment? Yes PRE-INFUSION SCREENING Since your last infusion have you: Had any major change in your health? No Been to the emergency room? No Been hospitalized? No Had any infections? No Taken any antibiotics? No Had surgery or do you have upcoming surgery? No In the past 7 days have you had: Fevers/chills/night sweats? No New cough or cold symptoms (including sore throat)? No Nausea, vomiting, diarrhea? No Unusual swelling in your ankles or feet? No Burning/blood with urination or urinary frequency? No New weakness, numbness, stumbling, or falls? No New rash or open sores? No [facility] 08-29-2022 Miscellaneous Notes PATIENT NOTIFIED OF SAME. OK for cholestyramine until colestipol back in stock Darryl Kimbroughill is calling Yani Aguilar MD today. Patient calling to request a return call. Patient is unable to get medication colestipol (COLESTID) 1 gram tablet. Patient asking for an alternative to the medication. Patient asking if colestipol (COLESTID) 1 gram tablet can be prescribed. This is what was prescribed before for her when she had the same issue. Patient asking for 1 refill until other medication comes back in stock. Please send to [facility]. Patient has been identified by name and birthdate. Duration of symptoms: N/A Person calling: self Call patient at: on cell [phone] (home) [phone] (cell) Was an appointment scheduled: No Closing statement: Results or non-symptom based questions: Thank you for calling [facility], your call will be returned within the next business day. Ania Grigsby documented in this encounter [facility] 08-25-2022 Note HNO ID: [id number] Author: Armida Arechiga RN Service: ? Author Type: Registered Nurse Type: Progress Notes Filed: 08/25/2022 4:17 PM Note Text: Patient offered bathroom assistance throughout treatment? Yes PRE-INFUSION SCREENING Since your last infusion have you: Had any major change in your health? No Been to the emergency room? No Been hospitalized? No Had any infections? No Taken any antibiotics? No Had surgery or do you have upcoming surgery? No In the past 7 days have you had: Fevers/chills/night sweats? No New cough or cold symptoms (including sore throat)? No Nausea, vomiting, diarrhea? No Unusual swelling in your ankles or feet? No Burning/blood with urination or urinary frequency? No New weakness, numbness, stumbling, or falls? No New rash or open sores? No [facility] 08-25-2022 History of Present illness Narrative Patient offered bathroom assistance throughout treatment? Yes PRE-INFUSION SCREENING Since your last infusion have you: Had any major change in your health? No Been to the emergency room? No Been hospitalized? No Had any infections? No Taken any antibiotics? No Had surgery or do you have upcoming surgery? No In the past 7 days have you had: Fevers/chills/night sweats? No New cough or cold symptoms (including sore throat)? No Nausea, vomiting, diarrhea? No Unusual swelling in your ankles or feet? No Burning/blood with urination or urinary frequency? No New weakness, numbness, stumbling, or falls? No New rash or open sores? No documented in this encounter [facility] 08-18-2022 Miscellaneous Notes Patient is notified of message below and verbalized understanding of instructions. Patient said she will continue with IV for now. Will contact her insurance. Varsha Mccullough MA If that's the approach which I totally understand, we can try the injections after 3 months of the IV if the IV hasn't worked by then. And then after 3 months of the injection, we can decide which one worked best and just stick to that. Wouldn't keep going back and forth between IV and injections otherwise. But she can check with insurance too and let us know what she decides to do. Patient is notified of message below and verbalized understanding of instructions. No specific concern to share about the medication IV or injections. She wants to see which one will have better effect. Patient will contact her insurance and call us back with an update. Varsha Mccullough MA Please let her know that would be pretty unusual to switch back and forth every 3 months like that. Not sure insurance would approve that. She can check with her insurance if they would and if so, we could try that. Are there specific concerns she has about the medication IV or injections that she'd like to share? Received incoming call from Patient. Per Dr Moe Rivas - Please let her know unfortunately we can't have a person on a mix of the injections and infusions-it would have to be one or the other. She can take her time to think about this and if she decides she'd like to switch to injections, she can then let us know and we can start that process. Patient verbalized understanding. Patient would like to know: Could she be on injections for three months and then switch to infusion every 3 months? Please Update Patient with MD's Response. Patient encouraged to call office with any questions/concerns. Lucy Phipps RN Attempted to reach patient. No answer. LMTCB. It is okay for PSR to relay message as written below. Thanks, Varsha Mccullough MA Please let her know unfortunately we can't have a person on a mix of the injections and infusions-it would have to be one or the other. She can take her time to think about this and if she decides she'd like to switch to injections, she can then let us know and we can start that process. Pt is returning phone call. I relayed message from Dr. Rivas as below. Pt unsure if she wants to proceed with home injections. She reports she is having trouble finding transportation to her infusion appointments, so she is wondering if she could do a mix of infusions in office and home injections for the times she might not be able to come into the office. I advised pt I was unsure if this was possible and would need to ask provider. Pt asking for Dr. Rivas input and recommendations. Jovita Ruano RN Attempted to reach patient. No answer. LMTCB. PSR please relay message as written below. Please document and route back to our pool. Thank you Sherrill We would need to send the prescription for the benlysta injections over to her pharmacy to see if they would cover the cost. Once she were to get the injections, she would need injection teaching with the first dose if she hasn't done injections before. She would do them once weekly at home by herself after that. We would plan to start the benlysta injection when the next infusion dose would have been due. Patient calling with questions concerning Benlysta. She understood that there was an option for injections instead of infusion. What would she have to do to switch? documented in this encounter [facility] 08-11-2022 Note HNO ID: [id number] Author: Gael Flowers RN Service: ? Author Type: Registered Nurse Type: Progress Notes Filed: 08/11/2022 2:50 PM Note Text: Patient offered bathroom assistance throughout treatment? Yes Pt is slightly nervous about first infusion. Emotional support given. PRE-INFUSION SCREENING Since your last infusion have you: Had any major change in your health? No Been to the emergency room? No Been hospitalized? No Had any infections? No Taken any antibiotics? No Had surgery or do you have upcoming surgery? No In the past 7 days have you had: Fevers/chills/night sweats? No New cough or cold symptoms (including sore throat)? No Nausea, vomiting, diarrhea? No Unusual swelling in your ankles or feet? No Burning/blood with urination or urinary frequency? No New weakness, numbness, stumbling, or falls? No New rash or open sores? No Pt very tired after infusion. Repeated VS and they were WNL. Pt taken to front of building in wheelchair. Told pt if she experienced any SOB or lightheadedness above her baseline to call Amy COVINGTON. Amy COVINGTON notified. [facility] 08-08-2022 Miscellaneous Notes Patient is notified of message below and verbalized understanding of instructions. Varsha Mccullough MA Please remind the patient that she is due for labs. The following approved medication requests have been transmitted electronically. Requested Prescriptions Signed Prescriptions Disp Refills mycophenolate Mofetil (CELLCEPT) 500 mg tablet 540 tablet 0 Sig: take 3 tablets by mouth twice a day Authorizing Provider: CARMEN PENNINGTON APRN.GIRISH Patient has been identified by name and date of : Yes RX INSTRUCTIONS: Patient aware RX will be sent to pharmacy. No need to notify patient. LAST APPOINTMENT: 07/08/2022 UPCOMING APPOINTMENT: 11/11/2022 LABS: Hemoglobin (g/dL) Date Value 05/08/2022 13.0 08/06/2021 12.3 Hematocrit (%) Date Value 05/08/2022 42.9 08/06/2021 39.7 WBC (k/uL) Date Value 05/08/2022 7.26 08/06/2021 9.22 Platelet Count (k/uL) Date Value 05/08/2022 277 08/06/2021 253 AST Date Value Ref Range Status 05/08/2022 72 (H) 13 - 35 U/L Final ALT Date Value Ref Range Status 05/08/2022 47 (H) 7 - 38 U/L Final Creatinine Date Value Ref Range Status 05/08/2022 0.61 0.58 - 0.96 mg/dL Final No results found for: URICACID Varsha Mccullough MA documented in this encounter [facility] 08-07-2022 Miscellaneous Notes 1st-time treatment report. The patient is currently being seen for a non-oncology regimen. No navigator services are needed at this time. documented in this encounter [facility] 08-06-2022 Miscellaneous Notes Noted Sinai Vasquez APRN.CNP Patient calling with update. She had a virtual visit two days ago for symptoms of nausea, vomiting and diarrhea which are improving. No longer vomiting. Diarrhea resolved. Still a little nauseated. Still a little dizzy. She has increased fluid intake. Eating a BRAT diet. Feels warm at times but does not have a thermometer. Denies cough, sore throat but has a little nasal congestion. She did a home COVID test today which is negative. She will continue home care for symptoms at this time and call back with persistent or worsening symptoms. Minal Acosta, MIRZA documented in this encounter [facility] 07-30-2022 Miscellaneous Notes Seen yesterday for VV Pt called in and reports she started having flu like symptom last night this morning she states she is feeling hungry, she reports she has not vomited in a while. I told her to take it slow and eat bland food. Like bananas, apple sauce, toast, and rice. I told her to make sure she was staying hydrated and to drink Gatorade or powerade mixed half and half with water. Pt states she will order some. I asked Pt is she took a Covid test, and she has not she is going to get one and test herself, if she is positive sh will call back in for a VV for antivirals. Let Pt know if she doesn't feel better she can always get an appointment or got to [facility]. documented in this encounter [facility] 07-29-2022 Note HNO ID: [id number] Author: Crow Canales, DO Service: ? Author Type: Physician Type: Progress Notes Filed: 07/30/2022 12:53 AM Note Text: VIRTUAL VISIT PROGRESS NOTE This is a virtual visit using Plurchase video visit. It required patient-provider interaction for the medical decision making as documented below. . Darryl Nichols is a 37 year old female seen for flu like symptoms nausea and fatigue that started 07/27/2021 started to have nausea vomiting and diarrhea. She call her her PCP and advised to check for Covid. She did not check. She currently has just nausea and diarrhea. No vomiting since Thursday morning. No black or bloody stools. She able to keep fluids down for at least 24 hours. She used a akbar chew and felt better, and had crackers today. Patient did not have Covid vaccine or flu vaccine States on Thursday prior to vomiting. She had vertigo. She currently has no vertigo. States today when took meds felt symptoms at 2. 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 PAST SURGICAL HISTORY Procedure Laterality Date ESOPHAGOGASTRODUODENOSCOPY TRANSORAL DIAGNOSTIC 07/28/13 EGD LAPS SURG CHOLECYSTECTOMY W/CHOLANGIOGRAPHY 12/07/12 Normal IOC, slightly bloodly fluid, right ovarian follicle RHINP PRIM LATANDALAR CRTLGSAND/ELVTN NASAL TI 2008 Rhinoplasty os septoplasty TONSILLECTOMY PRIMARY/SECONDARY Tonsillectomy FAMILY HISTORY Problem Relation Age of Onset Hypertension Father Diabetes Father Asthma Father Diabetes Maternal Grandmother Social History Tobacco Use Smoking status: Never Smokeless tobacco: Never Substance Use Topics Alcohol use: No Drug use: No Current Outpatient Medications Medication Sig escitalopram oxalate (LEXAPRO) 20 mg tablet Take 1 tablet by mouth once daily. famotidine (PEPCID) 40 mg tablet Take 1 tablet by mouth once daily. gabapentin (NEURONTIN) 600 mg tablet 1800mg/day benzonatate (TESSALON PERLES) 100 mg capsule Take 1-2 capsules by mouth three times daily as needed. pantoprazole DR (PROTONIX) 40 mg tablet Take 1 tablet by mouth twice daily. triamcinolone acetonide (KENALOG) 0.1 % cream Apply 1 application to affected area three times daily. Apply sparingly to area for rash/itching. Use up to 2 weeks per lesion betamethasone dipropionate (DIPROSONE) 0.05 % cream Apply to affected area twice daily. for up to 2 weeks for rash on hand or leg mycophenolate Mofetil (CELLCEPT) 500 mg tablet Take 3 tablets twice daily. colestipol (COLESTID) 1 gram tablet Take 1 tablet by mouth twice daily. For postcholecystectomy syndrome ferrous sulfate 325 mg (65 mg iron) tablet Take 1 tablet by mouth every other day. Cholecalciferol, Vitamin D3, 25 mcg (1,000 unit) cap Take 1 capsule by mouth once daily. cholestyramine (QUESTRAN) 4 gram packet Take 1 Packet by mouth twice daily with meals. As directed sucralfate (CARAFATE) 1 gram tablet Take 1 tablet by mouth twice daily. As directed albuterol HFA (PROVENTIL HFA, VENTOLIN HFA) 90 mcg/actuation inhaler Inhale 2 Puffs as instructed every 6 hours as needed for wheezing/shortness of breath. fluconazole (DIFLUCAN) 150 mg tablet For treatment of recurrent yeast infection Take every 72 hours for 3 doses then once weekly for 6 months XYWAV 0.5 gram/mL soln BELBUCA 300 mcg buccal film q 12 HR. BELBUCA 150 mcg film Dissolve 1 Film under the tongue twice daily. Miscellaneous Medical Supply (COMPRESSION STOCKINGS) KNEE HIGH AT 20-30 MMHG COMPRESSION FOR CHRONIC VENOUS INSUFFICIENCY ASSOCIATED WITH DIZZINESS. JOBST, SIGVARIS OR SPA BRAND TO BE WORN DURING DAYTIME HOURS AND REMOVED PRIOR TO BEDTIME EPINEPHrine (EPIPEN) 0.3 mg/0.3 mL auto-injector Use as directed for allergic reaction Cane nayeli Cane per patient preference. R26.81 gait instability nystatin (MYCOSTATIN) powder Apply 1 application to affected area four times daily. As needed fluticasone (ALLERGY RELIEF, FLUTICASONE,) 50 mcg/actuation nasal spray Use 2 Sprays in each nostril once daily. (Sensamist OTC brand) cetirizine (ZYRTEC) 10 mg tablet Take 1 tablet by mouth once daily. SODIUM OXYBATE (XYREM ORAL) Take by mouth twice daily. No current facility-administered medications for this visit. ALLERGIES Allergen Reactions Bactrim [Sulfametho* Rash Cephalexin Vomiting Ciprofloxacin Swelling Environmental [Othe* Unknown cat, dog, horse, alternaria, grasses, trees, dust mites, ragweed Lamictal [Lamotrigi* Swelling Facial swelling Prevnar 13 [Pneumoc* Intolerance Lym (more content not included)... [facility] 07-29-2022 History of Present illness Narrative VIRTUAL VISIT PROGRESS NOTE This is a virtual visit using Plurchase video visit. It required patient-provider interaction for the medical decision making as documented below. . Darryl Nichols is a 37 year old female seen for flu like symptoms nausea and fatigue that started 07/27/2021 started to have nausea vomiting and diarrhea. She call her her PCP and advised to check for Covid. She did not check. She currently has just nausea and diarrhea. No vomiting since Thursday morning. No black or bloody stools. She able to keep fluids down for at least 24 hours. She used a akbar chew and felt better, and had crackers today. Patient did not have Covid vaccine or flu vaccine States on Thursday prior to vomiting. She had vertigo. She currently has no vertigo. States today when took meds felt symptoms at 2. 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 PAST SURGICAL HISTORY Procedure Laterality Date ESOPHAGOGASTRODUODENOSCOPY TRANSORAL DIAGNOSTIC 07/28/13 EGD LAPS SURG CHOLECYSTECTOMY W/CHOLANGIOGRAPHY 12/07/12 Normal IOC, slightly bloodly fluid, right ovarian follicle RHINP PRIM LAT&ALAR CRTLGS&/ELVTN NASAL TI 2007 Rhinoplasty os septoplasty TONSILLECTOMY PRIMARY/SECONDARY <AGE 10 1997 Tonsillectomy FAMILY HISTORY Problem Relation Age of Onset Hypertension Father Diabetes Father Asthma Father Diabetes Maternal Grandmother Social History Tobacco Use Smoking status: Never Smokeless tobacco: Never Substance Use Topics Alcohol use: No Drug use: No Current Outpatient Medications Medication Sig escitalopram oxalate (LEXAPRO) 20 mg tablet Take 1 tablet by mouth once daily. famotidine (PEPCID) 40 mg tablet Take 1 tablet by mouth once daily. gabapentin (NEURONTIN) 600 mg tablet 1800mg/day benzonatate (TESSALON PERLES) 100 mg capsule Take 1-2 capsules by mouth three times daily as needed. pantoprazole DR (PROTONIX) 40 mg tablet Take 1 tablet by mouth twice daily. triamcinolone acetonide (KENALOG) 0.1 % cream Apply 1 application to affected area three times daily. Apply sparingly to area for rash/itching. Use up to 2 weeks per lesion betamethasone dipropionate (DIPROSONE) 0.05 % cream Apply to affected area twice daily. for up to 2 weeks for rash on hand or leg mycophenolate Mofetil (CELLCEPT) 500 mg tablet Take 3 tablets twice daily. colestipol (COLESTID) 1 gram tablet Take 1 tablet by mouth twice daily. For postcholecystectomy syndrome ferrous sulfate 325 mg (65 mg iron) tablet Take 1 tablet by mouth every other day. Cholecalciferol, Vitamin D3, 25 mcg (1,000 unit) cap Take 1 capsule by mouth once daily. cholestyramine (QUESTRAN) 4 gram packet Take 1 Packet by mouth twice daily with meals. As directed sucralfate (CARAFATE) 1 gram tablet Take 1 tablet by mouth twice daily. As directed albuterol HFA (PROVENTIL HFA, VENTOLIN HFA) 90 mcg/actuation inhaler Inhale 2 Puffs as instructed every 6 hours as needed for wheezing/shortness of breath. fluconazole (DIFLUCAN) 150 mg tablet For treatment of recurrent yeast infection Take every 72 hours for 3 doses then once weekly for 6 months XYWAV 0.5 gram/mL soln BELBUCA 300 mcg buccal film q 12 HR. BELBUCA 150 mcg film Dissolve 1 Film under the tongue twice daily. Miscellaneous Medical Supply (COMPRESSION STOCKINGS) KNEE HIGH AT 20-30 MMHG COMPRESSION FOR CHRONIC VENOUS INSUFFICIENCY ASSOCIATED WITH DIZZINESS. JOBST, SIGVARIS OR SPA BRAND TO BE WORN DURING DAYTIME HOURS AND REMOVED PRIOR TO BEDTIME EPINEPHrine (EPIPEN) 0.3 mg/0.3 mL auto-injector Use as directed for allergic reaction Cane nayeli Cane per patient preference. R26.81 gait instability nystatin (MYCOSTATIN) powder Apply 1 application to affected area four times daily. As needed fluticasone (ALLERGY RELIEF, FLUTICASONE,) 50 mcg/actuation nasal spray Use 2 Sprays in each nostril once daily. (Sensamist OTC brand) cetirizine (ZYRTEC) 10 mg tablet Take 1 tablet by mouth once daily. SODIUM OXYBATE (XYREM ORAL) Take by mouth twice daily. No current facility-administered medications for this visit. ALLERGIES Allergen Reactions Bactrim [Sulfametho* Rash Cephalexin Vomiting Ciprofloxacin Swelling Environmental [Othe* Unknown cat, dog, horse, alternaria, grasses, trees, dust mites, ragweed Lamictal [Lamotrigi* Swelling Facial swelling Prevnar 13 [Pneumoc* Intolerance Lymph nodes puffed up; skin rash Remicade [Inflixima* Rash, Other: See Comments TIGHTNESS IN THROAT Rituxan [Rituximab] Other: See Comments Difficulty breathing, sensation of throat closure Singulair [[place]* Intolerance Nausea, lightheaded REVIEW OF SYSTEMS: GENERAL: no fever, admits to fatigue mainly weakness and exhausted HEENT: admits to nasal congestion with clear rhinorrhea, no sore throat, no ear pain NECK: denies swelling or pain in neck RESPIRATORY: no cough, no wheezing or shortness of breath CARDIOVASCULAR: no chest pain, no palpitations GI: tolerating PO well, no abdominal pain, and mild nausea, no vomiting : urination is normal MUSCULOSKELETAL: denies any painful or swollen joints, no muscle aches SKIN: no rash PSYCH: sleep is normal HEMATOLOGY/LYMPHOLOGY: no swollen lymph nodes ENDOCRINE: no goiter NEURO: no numbness or paresthesias, no headache, and more pressure frontal and lightheaded, she did not take tylenol PHYSICAL EXAMINATION: VIDEO EXAM: (if completed, performed via video enabled technology) GENERAL: alert and appropriate, in no distress SKIN: no rash noted HEAD: normocephalic, no abnormality or lesion noted EYES: no injection and visual acuity is grossly normal EARS: hearing grossly normal NOSE: external nose normal without rhinorrhea OROPHARYNX: moist mucus membranes NECK: full ROM, no cervical LNs noted RESPIRATORY: breathing non-labored CHEST: equal chest rise with normal respiratory effort ABDOMEN: soft and non-tender BACK: back normal in appearance, spine with FROM NEUROLOGIC: no obvious deficit ASSESSMENT: PLAN: ASSESSMENT/PLAN: 1. Nausea vomiting and diarrhea - ICD9: 787.91, 787.01, ICD10: R11.2, R19.7 (primary diagnosis) - COVID WITH FLUA+B, ROUTINE - SCHEDULE LAB TESTING -advised if dizziness or lightheaded returns to call or go to ER may need elelctorlytes 2. Sinus congestion - ICD9: 478.19, ICD10: R09.81 - COVID WITH FLUA+B, ROUTINE - SCHEDULE LAB TESTING 3. Other fatigue - ICD9: 780.79, ICD10: R53.83 - COVID WITH FLUA+B, ROUTINE - SCHEDULE LAB TESTING Crow Canales DO I spent a total of 32 minutes on the date of the service which included [id number] patient care, completing clinical documentation, obtaining and/or reviewing separately obtained history, performing a medically appropriate examination, and counseling and educating the patient/family/caregiver Crow Canales DO documented in this encounter [facility] 07-29-2022 Miscellaneous Notes Reason for call: Dizziness Outcome: Conferenced to Maria G with for scheduling and assistance with setting up mychart. Reason for Disposition Taking a medicine that could cause dizziness (e.g., phenytoin [Dilantin], carbamazepine [Tegretol], primidone [Mysoline]) Answer Assessment - Initial Assessment Questions 1. DESCRIPTION: Feels like the room is spinning 2. VERTIGO: See above 3. LIGHTHEADED: Feels lightheaded as well 4. SEVERITY: Moderate dizziness 5. ONSET: Began about 2-3 hours ago. Started 30 min after taking Cellcept. Took Lexapro about 1 hour prior to the cellcept. Patient states she remembers feeling this way after taking cellcept 2 days ago. 6. AGGRAVATING FACTORS: Sitting still makes it feel like the room is spinning more 7. CAUSE: Patient thinks this may be due to taking medication. Patient denies any increase in cellcept or lexapro dose and states has been taking both for over a year without dizziness after taking. 8. RECURRENT SYMPTOM: Occurred 2 days ago 9. OTHER SYMPTOMS: Feels spacey intermittent nausea, 10. : Denies Protocols used: Dizziness - [id number] documented in this encounter [facility] 07-28-2022 Miscellaneous Notes Pt scheduled Benlysta. Sherrill Campos MA PA for [id number] - BELIMUMAB INJECTION has been APPROVED. Approval dates: 07/08/22 - 10/06/22. Rene/Onco PSS: Please contact patient and assist with scheduling Benlysta IV treatment. Thanks Sherrill Campos MA Prior authorization is pending review. E-mail sent to [employer]. Varsha Mccullough MA Noted. Sherrill Campos MA Benlysta IV beacon order placed, please track approval and once approved, please call to schedule infusion apts. Thanks. documented in this encounter [facility] 07-08-2022 Note HNO ID: [id number] Author: Moe Rivas MD Service: ? Author Type: Physician Type: Progress Notes Filed: 07/08/2022 1:10 PM Note Text: On 07/08/2022, I had the pleasure of seeing Darryl Nichols at the [facility] for follow-up of Sjogren's and related vasculitis HPI: To review, Darryl Nichols is a 37 year old female - At age 17, she had syncope. Thought to have POTS. Then developed a leg rash with red spots also of the soles of the feet. Seen by derm, skin bx with cutaneous vasculitis. Saw [facility] rheum, diagnosed with Sjogren's per bloodwork, no salivary gland biopsy done and ophthalmology evaluation concluded adequate tear production. - Was in [place] for a few years, saw neurologist starting around . Diagnosed with ARMIDA and narcolepsy (prescribes the xywav and gabapentin - In October, seen by Dr. 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 Has tried: prednisone up to 80mg/day (improved first 2-3 weeks, then symptoms recurred), colchicine x1-2 months (GI SE), AZA x1 week (lightheaded/dizzy), MTX PO x6-8 months (ineffective), humira x2 doses (ineffective), remicade (reaction w/SOB and facial swelling) and rituxan (throat swelling/closing). She gave up on everything after seeing Dr. Rodriguez, didn't follow with rheumatology for a while thereafter - With longstanding depression since at least , has had a couple of episodes where she was suicidal. Started on lexapro for depression/anxiety. Sees a psychologist. - In May, reported re-establishing with rheumatology. With rash primarily over the legs but had involved the trunk, sometimes upper extremities. On pred 20mg/day x5-6 months which initially helped but hadn't helped with regard to rash and pain, in particular the leg burning. Started on MMF - In Jul, reported 20% improvement in rash with MMF - In Apr, reported 40% improvement in rash with MMF (increased to 3g/day in Jan) - Today, reports feeling about the same. Feels like the inflammation is not quite as bad. Has been off prednisone at least 1 month. Rash is over ankles/feet. Can come up over the posterior legs/back when doing things. - Has some tightness of hands, pain in the knees, ankles, feet. Worse off prednisone. 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 PAST SURGICAL HISTORY Procedure Laterality Date ESOPHAGOGASTRODUODENOSCOPY TRANSORAL DIAGNOSTIC 07/28/13 EGD LAPS SURG CHOLECYSTECTOMY W/CHOLANGIOGRAPHY 12/07/12 Normal IOC, slightly bloodly fluid, right ovarian follicle RHINP PRIM LATANDALAR CRTLGSAND/ELVTN NASAL TI 2008 Rhinoplasty os septoplasty TONSILLECTOMY PRIMARY/SECONDARY Tonsillectomy ALLERGIES Allergen Reactions Bactrim [Sulfametho* Rash Cephalexin Vomiting Ciprofloxacin Swelling Environmental [Othe* Unknown cat, dog, horse, alternaria, grasses, trees, dust mites, ragweed Lamictal [Lamotrigi* Swelling Facial swelling Prevnar 13 [Pneumoc* Intolerance Lymph nodes puffed up; skin rash Remicade [Inflixima* Rash, Other: See Comments TIGHTNESS IN THROAT Rituxan [Rituximab] Other: See Comments Difficulty breathing, sensation of throat closure Singulair [[place]el[place]* Intolerance Nausea, lightheaded MEDICATIONS: Current Outpatient Medications Medication Sig gabapentin (NEURONTIN) 600 mg tablet 1800mg/day benzonatate (TESSALON PERLES) 100 mg capsule Take 1-2 capsules by mouth three times daily as needed. pantoprazole DR (PROTONIX) 40 mg tablet Take 1 tablet by mouth twice daily. famotidine (PEPCID) 40 mg tablet Take 1 tablet by mouth once daily. triamcinolone acetonide (KENALOG) 0.1 % cream Apply 1 application to affected area three times daily. Apply sparingly to area for rash/itching. Use up to 2 weeks per lesion betamethasone dipropionate (DIPROSONE) 0.05 % cream Apply to affected area twice daily. for up to 2 weeks for rash on hand or leg mycophenolate Mofetil (CELLCEPT) 500 mg tablet Take 3 tablets twice daily. colestipol (COLESTID) 1 gram tablet Take 1 tablet by mouth twice daily. For postcholecystectomy syndrome ferrous sulfate 325 mg (65 mg iron) tablet Take 1 tablet by mouth every other day. Cholecalciferol, Vitamin D3, 25 mcg (1,000 unit) cap Take 1 capsule by mouth once daily. cholestyramine (QUESTRAN) 4 gram packet Take 1 Packet by mouth twice daily with meals. As directed sucralfate (CARAFATE) 1 gram tablet Take 1 tablet by mouth twice daily. As directed albuterol HFA (PROVENTIL HFA, VENTOLIN HFA) 90 mcg/actuation inhaler (more content not included)... [facility] 07-08-2022 Instructions Moe Rivas MD - 07/08/2022 12:59 PM EST Your next set of labs are due around 08/08/22. Lab orders are in the system so please have the blood draw done then. You don't need to be fasting for the blood draw. documented in this encounter [facility] 07-08-2022 History of Present illness Narrative On 07/08/2022, I had the pleasure of seeing Darryl Nichols at the [facility] for follow-up of Sjogren's and related vasculitis HPI: To review, Darryl Nichols is a 37 year old female - At age 17, she had syncope. Thought to have POTS. Then developed a leg rash with red spots also of the soles of the feet. Seen by derm, skin bx with cutaneous vasculitis. Saw [facility] rheum, diagnosed with Sjogren's per bloodwork, no salivary gland biopsy done and ophthalmology evaluation concluded adequate tear production. - Was in [place] for a few years, saw neurologist starting around '09. Diagnosed with ARMIDA and narcolepsy (prescribes the xywav and gabapentin - In October, seen by Dr. 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 Has tried: prednisone up to 80mg/day (improved first 2-3 weeks, then symptoms recurred), colchicine x1-2 months (GI SE), AZA x1 week (lightheaded/dizzy), MTX PO x6-8 months (ineffective), humira x2 doses (ineffective), remicade (reaction w/SOB and facial swelling) and rituxan (throat swelling/closing). She gave up on everything after seeing Dr. Rodriguez, didn't follow with rheumatology for a while thereafter - With longstanding depression since at least , has had a couple of episodes where she was suicidal. Started on lexapro for depression/anxiety. Sees a psychologist. - In May, reported re-establishing with rheumatology. With rash primarily over the legs but had involved the trunk, sometimes upper extremities. On pred 20mg/day x5-6 months which initially helped but hadn't helped with regard to rash and pain, in particular the leg burning. Started on MMF - In Jul, reported 20% improvement in rash with MMF - In Apr, reported 40% improvement in rash with MMF (increased to 3g/day in Jan) - Today, reports feeling about the same. Feels like the inflammation is not quite as bad. Has been off prednisone at least 1 month. Rash is over ankles/feet. Can come up over the posterior legs/back when doing things. - Has some tightness of hands, pain in the knees, ankles, feet. Worse off prednisone. 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 PAST SURGICAL HISTORY Procedure Laterality Date ESOPHAGOGASTRODUODENOSCOPY TRANSORAL DIAGNOSTIC 07/28/13 EGD LAPS SURG CHOLECYSTECTOMY W/CHOLANGIOGRAPHY 12/07/12 Normal IOC, slightly bloodly fluid, right ovarian follicle RHINP PRIM LAT&ALAR CRTLGS&/ELVTN NASAL TI 2007 Rhinoplasty os septoplasty TONSILLECTOMY PRIMARY/SECONDARY <AGE 10 1997 Tonsillectomy ALLERGIES Allergen Reactions Bactrim [Sulfametho* Rash Cephalexin Vomiting Ciprofloxacin Swelling Environmental [Othe* Unknown cat, dog, horse, alternaria, grasses, trees, dust mites, ragweed Lamictal [Lamotrigi* Swelling Facial swelling Prevnar 13 [Pneumoc* Intolerance Lymph nodes puffed up; skin rash Remicade [Inflixima* Rash, Other: See Comments TIGHTNESS IN THROAT Rituxan [Rituximab] Other: See Comments Difficulty breathing, sensation of throat closure Singulair [Monteluk* Intolerance Nausea, lightheaded MEDICATIONS: Current Outpatient Medications Medication Sig gabapentin (NEURONTIN) 600 mg tablet 1800mg/day benzonatate (TESSALON PERLES) 100 mg capsule Take 1-2 capsules by mouth three times daily as needed. pantoprazole DR (PROTONIX) 40 mg tablet Take 1 tablet by mouth twice daily. famotidine (PEPCID) 40 mg tablet Take 1 tablet by mouth once daily. triamcinolone acetonide (KENALOG) 0.1 % cream Apply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 Fibromyalgia syndrome 03/31/2011 01/02/2021 Overview: Diagnosed by Dr. Gutierrez, Rheumatology Acute tonsillitis 01/02/2021 documented as of this encounter (statuses as of 10/29/2021) [facility] History of Past illness Narrative* Problem Noted Date Resolved Date DVT prophylaxis 11/13/2011 01/02/2021 Overview: Heparin sub q 5000 u bid DISPOSITION AND FOLLOW-UP 11/13/20112020 Overview: Plan: - D/C to home when cleared by rheum SUMMARY 11/12/2011 01/02/2021 Overview: 26 yo F w hx leukocytoclastic vasculitis, Sjogren's, fibromyalgia, sleep apnea, and prior hx anaphylactoid reaction ('throat closing up') to rituximab infusion who is admitted for premedication and monitoring for rituximab infusion. Vasculitis 03/31/2011 01/02/2021 Fibromyalgia syndrome 03/31/2011 01/02/2021 Overview: Diagnosed by Dr. Gutierrez, Rheumatology Acute tonsillitis 01/02/2021 documented as of this encounter (statuses as of 11/07/2021) [facility] History of Past illness Narrative* Problem Noted Date Resolved Date DVT prophylaxis 11/13/2011 01/02/2021 Overview: Heparin sub q 5000 u bid DISPOSITION AND FOLLOW-UP 11/13/20112020 Overview: Plan: - D/C to home when cleared by rheum SUMMARY 11/12/2011 01/02/2021 Overview: 26 yo F w hx leukocytoclastic vasculitis, Sjogren's, fibromyalgia, sleep apnea, and prior hx anaphylactoid reaction ('throat closing up') to rituximab infusion who is admitted for premedication and monitoring for rituximab infusion. Vasculitis 03/31/2011 01/02/2021 Fibromyalgia syndrome 03/31/2011 01/02/2021 Overview: Diagnosed by Dr. Gutierrez, Rheumatology Acute tonsillitis 01/02/2021 documented as of this encounter (statuses as of 11/26/2021) [facility] History of Past illness Narrative* Problem Noted Date Resolved Date DVT prophylaxis 11/13/2011 01/02/2021 Overview: Heparin sub q 5000 u bid DISPOSITION AND FOLLOW-UP 11/13/20112020 Overview: Plan: - D/C to home when cleared by rheum SUMMARY 11/12/2011 01/02/2021 Overview: 26 yo F w hx leukocytoclastic vasculitis, Sjogren's, fibromyalgia, sleep apnea, and prior hx anaphylactoid reaction ('throat closing up') to rituximab infusion who is admitted for premedication and monitoring for rituximab infusion. Vasculitis 03/31/2011 01/02/2021 Fibromyalgia syndrome 03/31/2011 01/02/2021 Overview: Diagnosed by Dr. Gutierrez, Rheumatology Acute tonsillitis 01/02/2021 documented as of this encounter (statuses as of 12/03/2021) [facility] History of Past illness Narrative* Problem Noted Date Resolved Date DVT prophylaxis 11/13/2011 01/02/2021 Overview: Heparin sub q 5000 u bid DISPOSITION AND FOLLOW-UP 11/13/20112020 Overview: Plan: - D/C to home when cleared by rheum SUMMARY 11/12/2011 01/02/2021 Overview: 26 yo F w hx leukocytoclastic vasculitis, Sjogren's, fibromyalgia, sleep apnea, and prior hx anaphylactoid reaction ('throat closing up') to rituximab infusion who is admitted for premedication and monitoring for rituximab infusion. Vasculitis 03/31/2011 01/02/2021 Fibromyalgia syndrome 03/31/2011 01/02/2021 Overview: Diagnosed by Dr. Gutierrez, Rheumatology Acute tonsillitis 01/02/2021 documented as of this encounter (statuses as of 01/01/2022) [facility] History of Past illness Narrative* Problem Noted Date Resolved Date DVT prophylaxis 11/13/2011 01/02/2021 Overview: Heparin sub q 5000 u bid DISPOSITION AND FOLLOW-UP 11/13/20112020 Overview: Plan: - D/C to home when cleared by rheum SUMMARY 11/12/2011 01/02/2021 Overview: 26 yo F w hx leukocytoclastic vasculitis, Sjogren's, fibromyalgia, sleep apnea, and prior hx anaphylactoid reaction ('throat closing up') to rituximab infusion who is admitted for premedication and monitoring for rituximab infusion. Vasculitis 03/31/2011 01/02/2021 Fibromyalgia syndrome 03/31/2011 01/02/2021 Overview: Diagnosed by Dr. Gutierrez, Rheumatology Acute tonsillitis 01/02/2021 documented as of this encounter (statuses as of 01/06/2022) [facility] History of Past illness Narrative* Problem Noted Date Resolved Date DVT prophylaxis 11/13/2011 01/02/2021 Overview: Heparin sub q 5000 u bid DISPOSITION AND FOLLOW-UP 11/13/20112020 Overview: Plan: - D/C to home when cleared by rheum SUMMARY 11/12/2011 01/02/2021 Overview: 26 yo F w hx leukocytoclastic vasculitis, Sjogren's, fibromyalgia, sleep apnea, and prior hx anaphylactoid reaction ('throat closing up') to rituximab infusion who is admitted for premedication and monitoring for rituximab infusion. Vasculitis 03/31/2011 01/02/2021 Fibromyalgia syndrome 03/31/2011 01/02/2021 Overview: Diagnosed by Dr. Gutierrez, Rheumatology Acute tonsillitis 01/02/2021 documented as of this encounter (statuses as of 01/30/2022) [facility] History of Past illness Narrative* Problem Noted Date Resolved Date DVT prophylaxis 11/13/2011 01/02/2021 Overview: Heparin sub q 5000 u bid DISPOSITION AND FOLLOW-UP 11/13/20112020 Overview: Plan: - D/C to home when cleared by rheum SUMMARY 11/12/2011 01/02/2021 Overview: 26 yo F w hx leukocytoclastic vasculitis, Sjogren's, fibromyalgia, sleep apnea, and prior hx anaphylactoid reaction ('throat closing up') to rituximab infusion who is admitted for premedication and monitoring for rituximab infusion. Vasculitis 03/31/2011 01/02/2021 Fibromyalgia syndrome 03/31/2011 01/02/2021 Overview: Diagnosed by Dr. Gutierrez, Rheumatology Acute tonsillitis 01/02/2021 documented as of this encounter (statuses as of 01/31/2022) [facility] History of Past illness Narrative* Problem Noted Date Resolved Date DVT prophylaxis 11/13/2011 01/02/2021 Overview: Heparin sub q 5000 u bid DISPOSITION AND FOLLOW-UP 11/13/20112020 Overview: Plan: - D/C to home when cleared by rheum SUMMARY 11/12/2011 01/02/2021 Overview: 26 yo F w hx leukocytoclastic vasculitis, Sjogren's, fibromyalgia, sleep apnea, and prior hx anaphylactoid reaction ('throat closing up') to rituximab infusion who is admitted for premedication and monitoring for rituximab infusion. Vasculitis 03/31/2011 01/02/2021 Fibromyalgia syndrome 03/31/2011 01/02/2021 Overview: Diagnosed by Dr. Gutierrez, Rheumatology Acute tonsillitis 01/02/2021 documented as of this encounter (statuses as of 02/06/2022) [facility] History of Past illness Narrative* Problem Noted Date Resolved Date DVT prophylaxis 11/13/2011 01/02/2021 Overview: Heparin sub q 5000 u bid DISPOSITION AND FOLLOW-UP 11/13/20112020 Overview: Plan: - D/C to home when cleared by rheum SUMMARY 11/12/2011 01/02/2021 Overview: 26 yo F w hx leukocytoclastic vasculitis, Sjogren's, fibromyalgia, sleep apnea, and prior hx anaphylactoid reaction ('throat closing up') to rituximab infusion who is admitted for premedication and monitoring for rituximab infusion. Vasculitis 03/31/2011 01/02/2021 Fibromyalgia syndrome 03/31/2011 01/02/2021 Overview: Diagnosed by Dr. Gutierrez, Rheumatology Acute tonsillitis 01/02/2021 documented as of this encounter (statuses as of 02/10/2022) [facility] History of Past illness Narrative* Problem Noted Date Resolved Date DVT prophylaxis 11/13/2011 01/02/2021 Overview: Heparin sub q 5000 u bid DISPOSITION AND FOLLOW-UP 11/13/20112020 Overview: Plan: - D/C to home when cleared by rheum SUMMARY 11/12/2011 01/02/2021 Overview: 26 yo F w hx leukocytoclastic vasculitis, Sjogren's, fibromyalgia, sleep apnea, and prior hx anaphylactoid reaction ('throat closing up') to rituximab infusion who is admitted for premedication and monitoring for rituximab infusion. Vasculitis 03/31/2011 01/02/2021 Fibromyalgia syndrome 03/31/2011 01/02/2021 Overview: Diagnosed by Dr. Gutierrez, Rheumatology Acute tonsillitis 01/02/2021 documented as of this encounter (statuses as of 03/27/2022) [facility] History of Past illness Narrative* Problem Noted Date Resolved Date DVT prophylaxis 11/13/2011 01/02/2021 Overview: Heparin sub q 5000 u bid DISPOSITION AND FOLLOW-UP 11/13/20112020 Overview: Plan: - D/C to home when cleared by rheum SUMMARY 11/12/2011 01/02/2021 Overview: 26 yo F w hx leukocytoclastic vasculitis, Sjogren's, fibromyalgia, sleep apnea, and prior hx anaphylactoid reaction ('throat closing up') to rituximab infusion who is admitted for premedication and monitoring for rituximab infusion. Vasculitis 03/31/2011 01/02/2021 Fibromyalgia syndrome 03/31/2011 01/02/2021 Overview: Diagnosed by Dr. Gutierrez, Rheumatology Acute tonsillitis 01/02/2021 documented as of this encounter (statuses as of 03/27/2022) [facility] History of Past illness Narrative* Problem Noted Date Resolved Date DVT prophylaxis 11/13/2011 01/02/2021 Overview: Heparin sub q 5000 u bid DISPOSITION AND FOLLOW-UP 11/13/20112020 Overview: Plan: - D/C to home when cleared by rheum SUMMARY 11/12/2011 01/02/2021 Overview: 26 yo F w hx leukocytoclastic vasculitis, Sjogren's, fibromyalgia, sleep apnea, and prior hx anaphylactoid reaction ('throat closing up') to rituximab infusion who is admitted for premedication and monitoring for rituximab infusion. Vasculitis 03/31/2011 01/02/2021 Fibromyalgia syndrome 03/31/2011 01/02/2021 Overview: Diagnosed by Dr. Gutierrez, Rheumatology Acute tonsillitis 01/02/2021 documented as of this encounter (statuses as of 04/02/2022) [facility] History of Past illness Narrative* Problem Noted Date Resolved Date DVT prophylaxis 11/13/2011 01/02/2021 Overview: Heparin sub q 5000 u bid DISPOSITION AND FOLLOW-UP 11/13/20112020 Overview: Plan: - D/C to home when cleared by rheum SUMMARY 11/12/2011 01/02/2021 Overview: 26 yo F w hx leukocytoclastic vasculitis, Sjogren's, fibromyalgia, sleep apnea, and prior hx anaphylactoid reaction ('throat closing up') to rituximab infusion who is admitted for premedication and monitoring for rituximab infusion. Vasculitis 03/31/2011 01/02/2021 Fibromyalgia syndrome 03/31/2011 01/02/2021 Overview: Diagnosed by Dr. Gutierrez, Rheumatology Acute tonsillitis 01/02/2021 documented as of this encounter (statuses as of 04/11/2022) [facility] History of Past illness Narrative* Problem Noted Date Resolved Date DVT prophylaxis 11/13/2011 01/02/2021 Overview: Heparin sub q 5000 u bid DISPOSITION AND FOLLOW-UP 11/13/20112020 Overview: Plan: - D/C to home when cleared by rheum SUMMARY 11/12/2011 01/02/2021 Overview: 26 yo F w hx leukocytoclastic vasculitis, Sjogren's, fibromyalgia, sleep apnea, and prior hx anaphylactoid reaction ('throat closing up') to rituximab infusion who is admitted for premedication and monitoring for rituximab infusion. Vasculitis 03/31/2011 01/02/2021 Fibromyalgia syndrome 03/31/2011 01/02/2021 Overview: Diagnosed by Dr. Gutierrez, Rheumatology Acute tonsillitis 01/02/2021 documented as of this encounter (statuses as of 04/14/2022) [facility] History of Past illness Narrative* Problem Noted Date Resolved Date DVT prophylaxis 11/13/2011 01/02/2021 Overview: Heparin sub q 5000 u bid DISPOSITION AND FOLLOW-UP 11/13/20112020 Overview: Plan: - D/C to home when cleared by rheum SUMMARY 11/12/2011 01/02/2021 Overview: 26 yo F w hx leukocytoclastic vasculitis, Sjogren's, fibromyalgia, sleep apnea, and prior hx anaphylactoid reaction ('throat closing up') to rituximab infusion who is admitted for premedication and monitoring for rituximab infusion. Vasculitis 03/31/2011 01/02/2021 Fibromyalgia syndrome 03/31/2011 01/02/2021 Overview: Diagnosed by Dr. Gutierrez, Rheumatology Acute tonsillitis 01/02/2021 documented as of this encounter (statuses as of 04/24/2022) [facility] History of Past illness Narrative* Problem Noted Date Resolved Date DVT prophylaxis 11/13/2011 01/02/2021 Overview: Heparin sub q 5000 u bid DISPOSITION AND FOLLOW-UP 11/13/20112020 Overview: Plan: - D/C to home when cleared by rheum SUMMARY 11/12/2011 01/02/2021 Overview: 26 yo F w hx leukocytoclastic vasculitis, Sjogren's, fibromyalgia, sleep apnea, and prior hx anaphylactoid reaction ('throat closing up') to rituximab infusion who is admitted for premedication and monitoring for rituximab infusion. Vasculitis 03/31/2011 01/02/2021 Fibromyalgia syndrome 03/31/2011 01/02/2021 Overview: Diagnosed by Dr. Gutierrez, Rheumatology Acute tonsillitis 01/02/2021 documented as of this encounter (statuses as of 05/08/2022) [facility] History of Past illness Narrative* Problem Noted Date Resolved Date DVT prophylaxis 11/13/2011 01/02/2021 Overview: Heparin sub q 5000 u bid DISPOSITION AND FOLLOW-UP 11/13/20112020 Overview: Plan: - D/C to home when cleared by rheum SUMMARY 11/12/2011 01/02/2021 Overview: 26 yo F w hx leukocytoclastic vasculitis, Sjogren's, fibromyalgia, sleep apnea, and prior hx anaphylactoid reaction ('throat closing up') to rituximab infusion who is admitted for premedication and monitoring for rituximab infusion. Vasculitis 03/31/2011 01/02/2021 Fibromyalgia syndrome 03/31/2011 01/02/2021 Overview: Diagnosed by Dr. Gutierrez, Rheumatology Acute tonsillitis 01/02/2021 documented as of this encounter (statuses as of 2022) [facility] History of Past illness Narrative* Problem Noted Date Resolved Date DVT prophylaxis 11/13/2011 01/02/2021 Overview: Heparin sub q 5000 u bid DISPOSITION AND FOLLOW-UP 11/13/20112020 Overview: Plan: - D/C to home when cleared by rheum SUMMARY 11/12/2011 01/02/2021 Overview: 26 yo F w hx leukocytoclastic vasculitis, Sjogren's, fibromyalgia, sleep apnea, and prior hx anaphylactoid reaction ('throat closing up') to rituximab infusion who is admitted for premedication and monitoring for rituximab infusion. Vasculitis 03/31/2011 01/02/2021 Fibromyalgia syndrome 03/31/2011 01/02/2021 Overview: Diagnosed by Dr. Guteirrez, Rheumatology Acute tonsillitis 01/02/2021 documented as of this encounter (statuses as of 2022) [facility] History of Past illness Narrative* Problem Noted Date Resolved Date DVT prophylaxis 11/13/2011 01/02/2021 Overview: Heparin sub q 5000 u bid DISPOSITION AND FOLLOW-UP 11/13/20112020 Overview: Plan: - D/C to home when cleared by rheum SUMMARY 11/12/2011 01/02/2021 Overview: 26 yo F w hx leukocytoclastic vasculitis, Sjogren's, fibromyalgia, sleep apnea, and prior hx anaphylactoid reaction ('throat closing up') to rituximab infusion who is admitted for premedication and monitoring for rituximab infusion. Vasculitis 03/31/2011 01/02/2021 Fibromyalgia syndrome 03/31/2011 01/02/2021 Overview: Diagnosed by Dr. Gutierrez, Rheumatology Acute tonsillitis 01/02/2021 documented as of this encounter (statuses as of 05/19/2022) [facility] History of Past illness Narrative* Problem Noted Date Resolved Date DVT prophylaxis 11/13/2011 01/02/2021 Overview: Heparin sub q 5000 u bid DISPOSITION AND FOLLOW-UP 11/13/20112020 Overview: Plan: - D/C to home when cleared by rheum SUMMARY 11/12/2011 01/02/2021 Overview: 26 yo F w hx leukocytoclastic vasculitis, Sjogren's, fibromyalgia, sleep apnea, and prior hx anaphylactoid reaction ('throat closing up') to rituximab infusion who is admitted for premedication and monitoring for rituximab infusion. Vasculitis 03/31/2011 01/02/2021 Fibromyalgia syndrome 03/31/2011 01/02/2021 Overview: Diagnosed by Dr. Gutierrez, Rheumatology Acute tonsillitis 01/02/2021 documented as of this encounter (statuses as of 05/22/2022) [facility] History of Past illness Narrative* Problem Noted Date Resolved Date DVT prophylaxis 11/13/2011 01/02/2021 Overview: Heparin sub q 5000 u bid DISPOSITION AND FOLLOW-UP 11/13/20112020 Overview: Plan: - D/C to home when cleared by rheum SUMMARY 11/12/2011 01/02/2021 Overview: 26 yo F w hx leukocytoclastic vasculitis, Sjogren's, fibromyalgia, sleep apnea, and prior hx anaphylactoid reaction ('throat closing up') to rituximab infusion who is admitted for premedication and monitoring for rituximab infusion. Vasculitis 03/31/2011 01/02/2021 Fibromyalgia syndrome 03/31/2011 01/02/2021 Overview: Diagnosed by Dr. Gutierrez, Rheumatology Acute tonsillitis 01/02/2021 documented as of this encounter (statuses as of 06/10/2022) [facility] History of Past illness Narrative* Problem Noted Date Resolved Date DVT prophylaxis 11/13/2011 01/02/2021 Overview: Heparin sub q 5000 u bid DISPOSITION AND FOLLOW-UP 11/13/20112020 Overview: Plan: - D/C to home when cleared by rheum SUMMARY 11/12/2011 01/02/2021 Overview: 26 yo F w hx leukocytoclastic vasculitis, Sjogren's, fibromyalgia, sleep apnea, and prior hx anaphylactoid reaction ('throat closing up') to rituximab infusion who is admitted for premedication and monitoring for rituximab infusion. Vasculitis 03/31/2011 01/02/2021 Fibromyalgia syndrome 03/31/2011 01/02/2021 Overview: Diagnosed by Dr. Gutierrez, Rheumatology Acute tonsillitis 01/02/2021 documented as of this encounter (statuses as of 06/23/2022) [facility] History of Past illness Narrative* Problem Noted Date Resolved Date DVT prophylaxis 11/13/2011 01/02/2021 Overview: Heparin sub q 5000 u bid DISPOSITION AND FOLLOW-UP 11/13/20112020 Overview: Plan: - D/C to home when cleared by rheum SUMMARY 11/12/2011 01/02/2021 Overview: 26 yo F w hx leukocytoclastic vasculitis, Sjogren's, fibromyalgia, sleep apnea, and prior hx anaphylactoid reaction ('throat closing up') to rituximab infusion who is admitted for premedication and monitoring for rituximab infusion. Vasculitis 03/31/2011 01/02/2021 Fibromyalgia syndrome 03/31/2011 01/02/2021 Overview: Diagnosed by Dr. Gutierrez, Rheumatology Acute tonsillitis 01/02/2021 documented as of this encounter (statuses as of 06/27/2022) [facility] History of Past illness Narrative* Problem Noted Date Resolved Date DVT prophylaxis 11/13/2011 01/02/2021 Overview: Heparin sub q 5000 u bid DISPOSITION AND FOLLOW-UP 11/13/20112020 Overview: Plan: - D/C to home when cleared by rheum SUMMARY 11/12/2011 01/02/2021 Overview: 26 yo F w hx leukocytoclastic vasculitis, Sjogren's, fibromyalgia, sleep apnea, and prior hx anaphylactoid reaction ('throat closing up') to rituximab infusion who is admitted for premedication and monitoring for rituximab infusion. Vasculitis 03/31/2011 01/02/2021 Fibromyalgia syndrome 03/31/2011 01/02/2021 Overview: Diagnosed by Dr. Gutierrez, Rheumatology Acute tonsillitis 01/02/2021 documented as of this encounter (statuses as of 07/07/2022) [facility] History of Past illness Narrative* Problem Noted Date Resolved Date DVT prophylaxis 11/13/2011 01/02/2021 Overview: Heparin sub q 5000 u bid DISPOSITION AND FOLLOW-UP 11/13/20112020 Overview: Plan: - D/C to home when cleared by rheum SUMMARY 11/12/2011 01/02/2021 Overview: 26 yo F w hx leukocytoclastic vasculitis, Sjogren's, fibromyalgia, sleep apnea, and prior hx anaphylactoid reaction ('throat closing up') to rituximab infusion who is admitted for premedication and monitoring for rituximab infusion. Vasculitis 03/31/2011 01/02/2021 Fibromyalgia syndrome 03/31/2011 01/02/2021 Overview: Diagnosed by Dr. Gutierrez, Rheumatology Acute tonsillitis 01/02/2021 documented as of this encounter (statuses as of 07/08/2022) [facility] History of Past illness Narrative* Problem Noted Date Resolved Date DVT prophylaxis 11/13/2011 01/02/2021 Overview: Heparin sub q 5000 u bid DISPOSITION AND FOLLOW-UP 11/13/20112020 Overview: Plan: - D/C to home when cleared by rheum SUMMARY 11/12/2011 01/02/2021 Overview: 26 yo F w hx leukocytoclastic vasculitis, Sjogren's, fibromyalgia, sleep apnea, and prior hx anaphylactoid reaction ('throat closing up') to rituximab infusion who is admitted for premedication and monitoring for rituximab infusion. Vasculitis 03/31/2011 01/02/2021 Fibromyalgia syndrome 03/31/2011 01/02/2021 Overview: Diagnosed by Dr. Gutierrez, Rheumatology Acute tonsillitis 01/02/2021 documented as of this encounter (statuses as of 07/29/2022) [facility] History of Past illness Narrative* Problem Noted Date Resolved Date DVT prophylaxis 11/13/2011 01/02/2021 Overview: Heparin sub q 5000 u bid DISPOSITION AND FOLLOW-UP 11/13/20112020 Overview: Plan: - D/C to home when cleared by rheum SUMMARY 11/12/2011 01/02/2021 Overview: 26 yo F w hx leukocytoclastic vasculitis, Sjogren's, fibromyalgia, sleep apnea, and prior hx anaphylactoid reaction ('throat closing up') to rituximab infusion who is admitted for premedication and monitoring for rituximab infusion. Vasculitis 03/31/2011 01/02/2021 Fibromyalgia syndrome 03/31/2011 01/02/2021 Overview: Diagnosed by Dr. Gutierrez, Rheumatology Acute tonsillitis 01/02/2021 documented as of this encounter (statuses as of 07/30/2022) [facility] History of Past illness Narrative* Problem Noted Date Resolved Date DVT prophylaxis 11/13/2011 01/02/2021 Overview: Heparin sub q 5000 u bid DISPOSITION AND FOLLOW-UP 11/13/20112020 Overview: Plan: - D/C to home when cleared by rheum SUMMARY 11/12/2011 01/02/2021 Overview: 26 yo F w hx leukocytoclastic vasculitis, Sjogren's, fibromyalgia, sleep apnea, and prior hx anaphylactoid reaction ('throat closing up') to rituximab infusion who is admitted for premedication and monitoring for rituximab infusion. Vasculitis 03/31/2011 01/02/2021 Fibromyalgia syndrome 03/31/2011 01/02/2021 Overview: Diagnosed by Dr. Gutierrez, Rheumatology Acute tonsillitis 01/02/2021 documented as of this encounter (statuses as of 07/30/2022) [facility] History of Past illness Narrative* Problem Noted Date Resolved Date DVT prophylaxis 11/13/2011 01/02/2021 Overview: Heparin sub q 5000 u bid DISPOSITION AND FOLLOW-UP 11/13/20112020 Overview: Plan: - D/C to home when cleared by rheum SUMMARY 11/12/2011 01/02/2021 Overview: 26 yo F w hx leukocytoclastic vasculitis, Sjogren's, fibromyalgia, sleep apnea, and prior hx anaphylactoid reaction ('throat closing up') to rituximab infusion who is admitted for premedication and monitoring for rituximab infusion. Vasculitis 03/31/2011 01/02/2021 Fibromyalgia syndrome 03/31/2011 01/02/2021 Overview: Diagnosed by Dr. Gutierrez, Rheumatology Acute tonsillitis 01/02/2021 documented as of this encounter (statuses as of 07/30/2022) [facility] History of Past illness Narrative* Problem Noted Date Resolved Date DVT prophylaxis 11/13/2011 01/02/2021 Overview: Heparin sub q 5000 u bid DISPOSITION AND FOLLOW-UP 11/13/20112020 Overview: Plan: - D/C to home when cleared by rheum SUMMARY 11/12/2011 01/02/2021 Overview: 26 yo F w hx leukocytoclastic vasculitis, Sjogren's, fibromyalgia, sleep apnea, and prior hx anaphylactoid reaction ('throat closing up') to rituximab infusion who is admitted for premedication and monitoring for rituximab infusion. Vasculitis 03/31/2011 01/02/2021 Fibromyalgia syndrome 03/31/2011 01/02/2021 Overview: Diagnosed by Dr. Gutierrez, Rheumatology Acute tonsillitis 01/02/2021 documented as of this encounter (statuses as of 08/07/2022) [facility] History of Past illness Narrative* Problem Noted Date Resolved Date DVT prophylaxis 11/13/2011 01/02/2021 Overview: Heparin sub q 5000 u bid DISPOSITION AND FOLLOW-UP 11/13/20112020 Overview: Plan: - D/C to home when cleared by rheum SUMMARY 11/12/2011 01/02/2021 Overview: 26 yo F w hx leukocytoclastic vasculitis, Sjogren's, fibromyalgia, sleep apnea, and prior hx anaphylactoid reaction ('throat closing up') to rituximab infusion who is admitted for premedication and monitoring for rituximab infusion. Vasculitis 03/31/2011 01/02/2021 Fibromyalgia syndrome 03/31/2011 01/02/2021 Overview: Diagnosed by Dr. Gutierrez, Rheumatology Acute tonsillitis 01/02/2021 documented as of this encounter (statuses as of 08/07/2022) [facility] History of Past illness Narrative* Problem Noted Date Resolved Date DVT prophylaxis 11/13/2011 01/02/2021 Overview: Heparin sub q 5000 u bid DISPOSITION AND FOLLOW-UP 11/13/20112020 Overview: Plan: - D/C to home when cleared by rheum SUMMARY 11/12/2011 01/02/2021 Overview: 26 yo F w hx leukocytoclastic vasculitis, Sjogren's, fibromyalgia, sleep apnea, and prior hx anaphylactoid reaction ('throat closing up') to rituximab infusion who is admitted for premedication and monitoring for rituximab infusion. Vasculitis 03/31/2011 01/02/2021 Fibromyalgia syndrome 03/31/2011 01/02/2021 Overview: Diagnosed by Dr. Gutierrez, Rheumatology Acute tonsillitis 01/02/2021 documented as of this encounter (statuses as of 08/08/2022) [facility] History of Past illness Narrative* Problem Noted Date Resolved Date DVT prophylaxis 11/13/2011 01/02/2021 Overview: Heparin sub q 5000 u bid DISPOSITION AND FOLLOW-UP 11/13/20112020 Overview: Plan: - D/C to home when cleared by rheum SUMMARY 11/12/2011 01/02/2021 Overview: 26 yo F w hx leukocytoclastic vasculitis, Sjogren's, fibromyalgia, sleep apnea, and prior hx anaphylactoid reaction ('throat closing up') to rituximab infusion who is admitted for premedication and monitoring for rituximab infusion. Vasculitis 03/31/2011 01/02/2021 Fibromyalgia syndrome 03/31/2011 01/02/2021 Overview: Diagnosed by Dr. Gutierrez, Rheumatology Acute tonsillitis 01/02/2021 documented as of this encounter (statuses as of 08/18/2022) [facility] History of Past illness Narrative* Problem Noted Date Resolved Date DVT prophylaxis 11/13/2011 01/02/2021 Overview: Heparin sub q 5000 u bid DISPOSITION AND FOLLOW-UP 11/13/20112020 Overview: Plan: - D/C to home when cleared by rheum SUMMARY 11/12/2011 01/02/2021 Overview: 26 yo F w hx leukocytoclastic vasculitis, Sjogren's, fibromyalgia, sleep apnea, and prior hx anaphylactoid reaction ('throat closing up') to rituximab infusion who is admitted for premedication and monitoring for rituximab infusion. Vasculitis 03/31/2011 01/02/2021 Fibromyalgia syndrome 03/31/2011 01/02/2021 Overview: Diagnosed by Dr. Gutierrez, Rheumatology Acute tonsillitis 01/02/2021 documented as of this encounter (statuses as of 08/26/2022) [facility] History of Past illness Narrative* Problem Noted Date Resolved Date DVT prophylaxis 11/13/2011 01/02/2021 Overview: Heparin sub q 5000 u bid DISPOSITION AND FOLLOW-UP 11/13/20112020 Overview: Plan: - D/C to home when cleared by rheum SUMMARY 11/12/2011 01/02/2021 Overview: 26 yo F w hx leukocytoclastic vasculitis, Sjogren's, fibromyalgia, sleep apnea, and prior hx anaphylactoid reaction ('throat closing up') to rituximab infusion who is admitted for premedication and monitoring for rituximab infusion. Vasculitis 03/31/2011 01/02/2021 Fibromyalgia syndrome 03/31/2011 01/02/2021 Overview: Diagnosed by Dr. Gutierrez, Rheumatology Acute tonsillitis 01/02/2021 documented as of this encounter (statuses as of 08/29/2022) [facility] History of Past illness Narrative* Problem Noted Date Resolved Date DVT prophylaxis 11/13/2011 01/02/2021 Overview: Heparin sub q 5000 u bid DISPOSITION AND FOLLOW-UP 11/13/20112020 Overview: Plan: - D/C to home when cleared by rheum SUMMARY 11/12/2011 01/02/2021 Overview: 26 yo F w hx leukocytoclastic vasculitis, Sjogren's, fibromyalgia, sleep apnea, and prior hx anaphylactoid reaction ('throat closing up') to rituximab infusion who is admitted for premedication and monitoring for rituximab infusion. Vasculitis 03/31/2011 01/02/2021 Fibromyalgia syndrome 03/31/2011 01/02/2021 Overview: Diagnosed by Dr. Gutierrez, Rheumatology Acute tonsillitis 01/02/2021 documented as of this encounter (statuses as of 09/09/2022) [facility] History of Past illness Narrative* Problem Noted Date Resolved Date DVT prophylaxis 11/13/2011 01/02/2021 Overview: Heparin sub q 5000 u bid DISPOSITION AND FOLLOW-UP 11/13/20112020 Overview: Plan: - D/C to home when cleared by rheum SUMMARY 11/12/2011 01/02/2021 Overview: 26 yo F w hx leukocytoclastic vasculitis, Sjogren's, fibromyalgia, sleep apnea, and prior hx anaphylactoid reaction ('throat closing up') to rituximab infusion who is admitted for premedication and monitoring for rituximab infusion. Vasculitis 03/31/2011 01/02/2021 Fibromyalgia syndrome 03/31/2011 01/02/2021 Overview: Diagnosed by Dr. Gutierrez, Rheumatology Acute tonsillitis 01/02/2021 documented as of this encounter (statuses as of 09/30/2022) [place] [id number] History of Past illness Narrative* Problem Noted Date Resolved Date DVT prophylaxis 11/13/2011 01/02/2021 Overview: Heparin sub q 5000 u bid DISPOSITION AND FOLLOW-UP 11/13/20112020 Overview: Plan: - D/C to home when cleared by rheum SUMMARY 11/12/2011 01/02/2021 Overview: 26 yo F w hx leukocytoclastic vasculitis, Sjogren's, fibromyalgia, sleep apnea, and prior hx anaphylactoid reaction ('throat closing up') to rituximab infusion who is admitted for premedication and monitoring for rituximab infusion. Vasculitis 03/31/2011 01/02/2021 Fibromyalgia syndrome 03/31/2011 01/02/2021 Overview: Diagnosed by Dr. Gutierrez, Rheumatology Acute tonsillitis 01/02/2021 documented as of this encounter (statuses as of 09/30/2022) [facility] History of Past illness Narrative* Problem Noted Date Resolved Date DVT prophylaxis 11/13/2011 01/02/2021 Overview: Heparin sub q 5000 u bid DISPOSITION AND FOLLOW-UP 11/13/20112020 Overview: Plan: - D/C to home when cleared by rheum SUMMARY 11/12/2011 01/02/2021 Overview: 26 yo F w hx leukocytoclastic vasculitis, Sjogren's, fibromyalgia, sleep apnea, and prior hx anaphylactoid reaction ('throat closing up') to rituximab infusion who is admitted for premedication and monitoring for rituximab infusion. Vasculitis 03/31/2011 01/02/2021 Fibromyalgia syndrome 03/31/2011 01/02/2021 Overview: Diagnosed by Dr. Gutierrez, Rheumatology Acute tonsillitis 01/02/2021 documented as of this encounter (statuses as of 10/07/2022) [facility] History of Past illness Narrative* Problem Noted Date Resolved Date DVT prophylaxis 11/13/2011 01/02/2021 Overview: Heparin sub q 5000 u bid DISPOSITION AND FOLLOW-UP 11/13/20112020 Overview: Plan: - D/C to home when cleared by rheum SUMMARY 11/12/2011 01/02/2021 Overview: 26 yo F w hx leukocytoclastic vasculitis, Sjogren's, fibromyalgia, sleep apnea, and prior hx anaphylactoid reaction ('throat closing up') to rituximab infusion who is admitted for premedication and monitoring for rituximab infusion. Vasculitis 03/31/2011 01/02/2021 Fibromyalgia syndrome 03/31/2011 01/02/2021 Overview: Diagnosed by Dr. Gutierrez, Rheumatology Acute tonsillitis 01/02/2021 documented as of this encounter (statuses as of 10/15/2022) [facility] History of Past illness Narrative* Problem Noted Date Resolved Date DVT prophylaxis 11/13/2011 01/02/2021 Overview: Heparin sub q 5000 u bid DISPOSITION AND FOLLOW-UP 11/13/20112020 Overview: Plan: - D/C to home when cleared by rheum SUMMARY 11/12/2011 01/02/2021 Overview: 26 yo F w hx leukocytoclastic vasculitis, Sjogren's, fibromyalgia, sleep apnea, and prior hx anaphylactoid reaction ('throat closing up') to rituximab infusion who is admitted for premedication and monitoring for rituximab infusion. Vasculitis 03/31/2011 01/02/2021 Fibromyalgia syndrome 03/31/2011 01/02/2021 Overview: Diagnosed by Dr. Gutierrez, Rheumatology Acute tonsillitis 01/02/2021 documented as of this encounter (statuses as of 10/17/2022) [facility] History of Past illness Narrative* Problem Noted Date Resolved Date DVT prophylaxis 11/13/2011 01/02/2021 Overview: Heparin sub q 5000 u bid DISPOSITION AND FOLLOW-UP 11/13/20112020 Overview: Plan: - D/C to home when cleared by rheum SUMMARY 11/12/2011 01/02/2021 Overview: 26 yo F w hx leukocytoclastic vasculitis, Sjogren's, fibromyalgia, sleep apnea, and prior hx anaphylactoid reaction ('throat closing up') to rituximab infusion who is admitted for premedication and monitoring for rituximab infusion. Vasculitis 03/31/2011 01/02/2021 Fibromyalgia syndrome 03/31/2011 01/02/2021 Overview: Diagnosed by Dr. Gutierrez, Rheumatology Acute tonsillitis 01/02/2021 documented as of this encounter (statuses as of 10/21/2022) [facility] History of Past illness Narrative* Problem Noted Date Resolved Date DVT prophylaxis 11/13/2011 01/02/2021 Overview: Heparin sub q 5000 u bid DISPOSITION AND FOLLOW-UP 11/13/20112020 Overview: Plan: - D/C to home when cleared by rheum SUMMARY 11/12/2011 01/02/2021 Overview: 26 yo F w hx leukocytoclastic vasculitis, Sjogren's, fibromyalgia, sleep apnea, and prior hx anaphylactoid reaction ('throat closing up') to rituximab infusion who is admitted for premedication and monitoring for rituximab infusion. Vasculitis 03/31/2011 01/02/2021 Fibromyalgia syndrome 03/31/2011 01/02/2021 Overview: Diagnosed by Dr. Gutierrez, Rheumatology Acute tonsillitis 01/02/2021 documented as of this encounter (statuses as of 10/22/2022) [facility] History of Past illness Narrative* Problem Noted Date Resolved Date DVT prophylaxis 11/13/2011 01/02/2021 Overview: Heparin sub q 5000 u bid DISPOSITION AND FOLLOW-UP 11/13/20112020 Overview: Plan: - D/C to home when cleared by rheum SUMMARY 11/12/2011 01/02/2021 Overview: 26 yo F w hx leukocytoclastic vasculitis, Sjogren's, fibromyalgia, sleep apnea, and prior hx anaphylactoid reaction ('throat closing up') to rituximab infusion who is admitted for premedication and monitoring for rituximab infusion. Vasculitis 03/31/2011 01/02/2021 Fibromyalgia syndrome 03/31/2011 01/02/2021 Overview: Diagnosed by Dr. Gutierrez, Rheumatology Acute tonsillitis 01/02/2021 documented as of this encounter (statuses as of 10/27/2022) [facility] History of Past illness Narrative* Problem Noted Date Resolved Date DVT prophylaxis 11/13/2011 01/02/2021 Overview: Heparin sub q 5000 u bid DISPOSITION AND FOLLOW-UP 11/13/20112020 Overview: Plan: - D/C to home when cleared by rheum SUMMARY 11/12/2011 01/02/2021 Overview: 26 yo F w hx leukocytoclastic vasculitis, Sjogren's, fibromyalgia, sleep apnea, and prior hx anaphylactoid reaction ('throat closing up') to rituximab infusion who is admitted for premedication and monitoring for rituximab infusion. Vasculitis 03/31/2011 01/02/2021 Fibromyalgia syndrome 03/31/2011 01/02/2021 Overview: Diagnosed by Dr. Gutierrez, Rheumatology Acute tonsillitis 01/02/2021 documented as of this encounter (statuses as of 11/04/2022) [facility] History of Past illness Narrative* Problem Noted Date Resolved Date DVT prophylaxis 11/13/2011 01/02/2021 Overview: Heparin sub q 5000 u bid DISPOSITION AND FOLLOW-UP 11/13/20112020 Overview: Plan: - D/C to home when cleared by rheum SUMMARY 11/12/2011 01/02/2021 Overview: 26 yo F w hx leukocytoclastic vasculitis, Sjogren's, fibromyalgia, sleep apnea, and prior hx anaphylactoid reaction ('throat closing up') to rituximab infusion who is admitted for premedication and monitoring for rituximab infusion. Vasculitis 03/31/2011 01/02/2021 Fibromyalgia syndrome 03/31/2011 01/02/2021 Overview: Diagnosed by Dr. Gutierrez, Rheumatology Acute tonsillitis 01/02/2021 documented as of this encounter (statuses as of 11/15/2022) [facility] History of Past illness Narrative* Problem Noted Date Resolved Date DVT prophylaxis 11/13/2011 01/02/2021 Overview: Heparin sub q 5000 u bid DISPOSITION AND FOLLOW-UP 11/13/20112020 Overview: Plan: - D/C to home when cleared by rheum SUMMARY 11/12/2011 01/02/2021 Overview: 26 yo F w hx leukocytoclastic vasculitis, Sjogren's, fibromyalgia, sleep apnea, and prior hx anaphylactoid reaction ('throat closing up') to rituximab infusion who is admitted for premedication and monitoring for rituximab infusion. Vasculitis 03/31/2011 01/02/2021 Fibromyalgia syndrome 03/31/2011 01/02/2021 Overview: Diagnosed by Dr. Gutierrez, Rheumatology Acute tonsillitis 01/02/2021 documented as of this encounter (statuses as of 11/25/2022) [facility] History of Past illness Narrative* Problem Noted Date Resolved Date DVT prophylaxis 11/13/2011 01/02/2021 Overview: Heparin sub q 5000 u bid DISPOSITION AND FOLLOW-UP 11/13/20112020 Overview: Plan: - D/C to home when cleared by rheum SUMMARY 11/12/2011 01/02/2021 Overview: 26 yo F w hx leukocytoclastic vasculitis, Sjogren's, fibromyalgia, sleep apnea, and prior hx anaphylactoid reaction ('throat closing up') to rituximab infusion who is admitted for premedication and monitoring for rituximab infusion. Vasculitis 03/31/2011 01/02/2021 Fibromyalgia syndrome 03/31/2011 01/02/2021 Overview: Diagnosed by Dr. Gutierrez, Rheumatology Acute tonsillitis 01/02/2021 documented as of this encounter (statuses as of 12/12/2022) [facility] History of Past illness Narrative* Problem Noted Date Resolved Date DVT prophylaxis 11/13/2011 01/02/2021 Overview: Heparin sub q 5000 u bid DISPOSITION AND FOLLOW-UP 11/13/20112020 Overview: Plan: - D/C to home when cleared by rheum SUMMARY 11/12/2011 01/02/2021 Overview: 26 yo F w hx leukocytoclastic vasculitis, Sjogren's, fibromyalgia, sleep apnea, and prior hx anaphylactoid reaction ('throat closing up') to rituximab infusion who is admitted for premedication and monitoring for rituximab infusion. Vasculitis 03/31/2011 01/02/2021 Fibromyalgia syndrome 03/31/2011 01/02/2021 Overview: Diagnosed by Dr. Gutierrez, Rheumatology Acute tonsillitis 01/02/2021 documented as of this encounter (statuses as of 12/12/2022) [facility] History of Past illness Narrative* Problem Noted Date Resolved Date DVT prophylaxis 11/13/2011 01/02/2021 Overview: Heparin sub q 5000 u bid DISPOSITION AND FOLLOW-UP 11/13/20112020 Overview: Plan: - D/C to home when cleared by rheum SUMMARY 11/12/2011 01/02/2021 Overview: 26 yo F w hx leukocytoclastic vasculitis, Sjogren's, fibromyalgia, sleep apnea, and prior hx anaphylactoid reaction ('throat closing up') to rituximab infusion who is admitted for premedication and monitoring for rituximab infusion. Vasculitis 03/31/2011 01/02/2021 Fibromyalgia syndrome 03/31/2011 01/02/2021 Overview: Diagnosed by Dr. Gutierrez, Rheumatology Acute tonsillitis 01/02/2021 documented as of this encounter (statuses as of 12/18/2022) [facility] History of Past illness Narrative* Problem Noted Date Diagnosed Date Resolved Date DVT prophylaxis 11/13/2011 01/02/2021 Overview: Heparin sub q 5000 u bid DISPOSITION AND FOLLOW-UP 11/13/2011 Overview: Plan: - D/C to home when cleared by rheum SUMMARY 11/12/2011 01/02/2021 Overview: 26 yo F w hx leukocytoclastic vasculitis, Sjogren's, fibromyalgia, sleep apnea, and prior hx anaphylactoid reaction ('throat closing up') to rituximab infusion who is admitted for premedication and monitoring for rituximab infusion. Vasculitis 03/31/2011 01/02/2021 Fibromyalgia syndrome 03/31/20112020 Overview: Diagnosed by Dr. Gutierrez, Rheumatology Acute tonsillitis 01/02/2021 documented as of this encounter (statuses as of 12/30/2022) [facility] History of Past illness Narrative* Problem Noted Date Diagnosed Date Resolved Date DVT prophylaxis 11/13/2011 01/02/2021 Overview: Heparin sub q 5000 u bid DISPOSITION AND FOLLOW-UP 11/13/2011 Overview: Plan: - D/C to home when cleared by rheum SUMMARY 11/12/2011 01/02/2021 Overview: 26 yo F w hx leukocytoclastic vasculitis, Sjogren's, fibromyalgia, sleep apnea, and prior hx anaphylactoid reaction ('throat closing up') to rituximab infusion who is admitted for premedication and monitoring for rituximab infusion. Vasculitis 03/31/2011 01/02/2021 Fibromyalgia syndrome 03/31/20112020 Overview: Diagnosed by Dr. Gutierrez, Rheumatology Acute tonsillitis 01/02/2021 documented as of this encounter (statuses as of 01/27/2023) [facility] History of Past illness Narrative* Problem Noted Date Diagnosed Date Resolved Date DVT prophylaxis 11/13/2011 01/02/2021 Overview: Heparin sub q 5000 u bid DISPOSITION AND FOLLOW-UP 11/13/2011 Overview: Plan: - D/C to home when cleared by rheum SUMMARY 11/12/2011 01/02/2021 Overview: 26 yo F w hx leukocytoclastic vasculitis, Sjogren's, fibromyalgia, sleep apnea, and prior hx anaphylactoid reaction ('throat closing up') to rituximab infusion who is admitted for premedication and monitoring for rituximab infusion. Vasculitis 03/31/2011 01/02/2021 Fibromyalgia syndrome 03/31/20112020 Overview: Diagnosed by Dr. Gutierrez, Rheumatology Acute tonsillitis 01/02/2021 documented as of this encounter (statuses as of 01/29/2023) [facility] History of Past illness Narrative* Problem Noted Date Diagnosed Date Resolved Date DVT prophylaxis 11/13/2011 01/02/2021 Overview: Heparin sub q 5000 u bid DISPOSITION AND FOLLOW-UP 11/13/2011 Overview: Plan: - D/C to home when cleared by rheum SUMMARY 11/12/2011 01/02/2021 Overview: 26 yo F w hx leukocytoclastic vasculitis, Sjogren's, fibromyalgia, sleep apnea, and prior hx anaphylactoid reaction ('throat closing up') to rituximab infusion who is admitted for premedication and monitoring for rituximab infusion. Vasculitis 03/31/2011 01/02/2021 Fibromyalgia syndrome 03/31/20112020 Overview: Diagnosed by Dr. Gutierrez, Rheumatology Acute tonsillitis 01/02/2021 documented as of this encounter (statuses as of 02/04/2023) [facility] History of Past illness Narrative* Problem Noted Date Diagnosed Date Resolved Date DVT prophylaxis 11/13/2011 01/02/2021 Overview: Heparin sub q 5000 u bid DISPOSITION AND FOLLOW-UP 11/13/2011 Overview: Plan: - D/C to home when cleared by rheum SUMMARY 11/12/2011 01/02/2021 Overview: 26 yo F w hx leukocytoclastic vasculitis, Sjogren's, fibromyalgia, sleep apnea, and prior hx anaphylactoid reaction ('throat closing up') to rituximab infusion who is admitted for premedication and monitoring for rituximab infusion. Vasculitis 03/31/2011 01/02/2021 Fibromyalgia syndrome 03/31/20112020 Overview: Diagnosed by Dr. Gutierrez, Rheumatology Acute tonsillitis 01/02/2021 documented as of this encounter (statuses as of 02/09/2023) [facility] History of Past illness Narrative* Problem Noted Date Diagnosed Date Resolved Date DVT prophylaxis 11/13/2011 01/02/2021 Overview: Heparin sub q 5000 u bid DISPOSITION AND FOLLOW-UP 11/13/2011 Overview: Plan: - D/C to home when cleared by rheum SUMMARY 11/12/2011 01/02/2021 Overview: 26 yo F w hx leukocytoclastic vasculitis, Sjogren's, fibromyalgia, sleep apnea, and prior hx anaphylactoid reaction ('throat closing up') to rituximab infusion who is admitted for premedication and monitoring for rituximab infusion. Vasculitis 03/31/2011 01/02/2021 Fibromyalgia syndrome 03/31/20112020 Overview: Diagnosed by Dr. Gutierrez, Rheumatology Acute tonsillitis 01/02/2021 documented as of this encounter (statuses as of 02/17/2023) [facility] History of Past illness Narrative* Problem Noted Date Diagnosed Date Resolved Date DVT prophylaxis 11/13/2011 01/02/2021 Overview: Heparin sub q 5000 u bid DISPOSITION AND FOLLOW-UP 11/13/2011 Overview: Plan: - D/C to home when cleared by rheum SUMMARY 11/12/2011 01/02/2021 Overview: 26 yo F w hx leukocytoclastic vasculitis, Sjogren's, fibromyalgia, sleep apnea, and prior hx anaphylactoid reaction ('throat closing up') to rituximab infusion who is admitted for premedication and monitoring for rituximab infusion. Vasculitis 03/31/2011 01/02/2021 Fibromyalgia syndrome 03/31/20112020 Overview: Diagnosed by Dr. Gutierrez, Rheumatology Acute tonsillitis 01/02/2021 documented as of this encounter (statuses as of 02/25/2023) [facility] History of Past illness Narrative* Problem Noted Date Diagnosed Date Resolved Date DVT prophylaxis 11/13/2011 01/02/2021 Overview: Heparin sub q 5000 u bid DISPOSITION AND FOLLOW-UP 11/13/2011 Overview: Plan: - D/C to home when cleared by rheum SUMMARY 11/12/2011 01/02/2021 Overview: 26 yo F w hx leukocytoclastic vasculitis, Sjogren's, fibromyalgia, sleep apnea, and prior hx anaphylactoid reaction ('throat closing up') to rituximab infusion who is admitted for premedication and monitoring for rituximab infusion. Vasculitis 03/31/2011 01/02/2021 Fibromyalgia syndrome 03/31/20112020 Overview: Diagnosed by Dr. Gutierrez, Rheumatology Acute tonsillitis 01/02/2021 documented as of this encounter (statuses as of 03/03/2023) [facility] History of Past illness Narrative* Problem Noted Date Diagnosed Date Resolved Date DVT prophylaxis 11/13/2011 01/02/2021 Overview: Heparin sub q 5000 u bid DISPOSITION AND FOLLOW-UP 11/13/2011 Overview: Plan: - D/C to home when cleared by rheum SUMMARY 11/12/2011 01/02/2021 Overview: 26 yo F w hx leukocytoclastic vasculitis, Sjogren's, fibromyalgia, sleep apnea, and prior hx anaphylactoid reaction ('throat closing up') to rituximab infusion who is admitted for premedication and monitoring for rituximab infusion. Vasculitis 03/31/2011 01/02/2021 Fibromyalgia syndrome 03/31/20112020 Overview: Diagnosed by Dr. Gutierrez, Rheumatology Acute tonsillitis 01/02/2021 documented as of this encounter (statuses as of 03/09/2023) [facility] History of Past illness Narrative* Problem Noted Date Diagnosed Date Resolved Date DVT prophylaxis 11/13/2011 01/02/2021 Overview: Heparin sub q 5000 u bid DISPOSITION AND FOLLOW-UP 11/13/2011 Overview: Plan: - D/C to home when cleared by rheum SUMMARY 11/12/2011 01/02/2021 Overview: 26 yo F w hx leukocytoclastic vasculitis, Sjogren's, fibromyalgia, sleep apnea, and prior hx anaphylactoid reaction ('throat closing up') to rituximab infusion who is admitted for premedication and monitoring for rituximab infusion. Vasculitis 03/31/2011 01/02/2021 Fibromyalgia syndrome 03/31/20112020 Overview: Diagnosed by Dr. Gutierrez, Rheumatology Acute tonsillitis 01/02/2021 documented as of this encounter (statuses as of 03/28/2023) [facility] History of Past illness Narrative* Problem Noted Date Diagnosed Date Resolved Date DVT prophylaxis 11/13/2011 01/02/2021 Overview: Heparin sub q 5000 u bid DISPOSITION AND FOLLOW-UP 11/13/2011 Overview: Plan: - D/C to home when cleared by rheum SUMMARY 11/12/2011 01/02/2021 Overview: 26 yo F w hx leukocytoclastic vasculitis, Sjogren's, fibromyalgia, sleep apnea, and prior hx anaphylactoid reaction ('throat closing up') to rituximab infusion who is admitted for premedication and monitoring for rituximab infusion. Vasculitis 03/31/2011 01/02/2021 Fibromyalgia syndrome 03/31/20112020 Overview: Diagnosed by Dr. Gutierrez, Rheumatology Acute tonsillitis 01/02/2021 documented as of this encounter (statuses as of 03/31/2023) [facility] History of Past illness Narrative* Problem Noted Date Diagnosed Date Resolved Date DVT prophylaxis 11/13/2011 01/02/2021 Overview: Heparin sub q 5000 u bid DISPOSITION AND FOLLOW-UP 11/13/2011 Overview: Plan: - D/C to home when cleared by rheum SUMMARY 11/12/2011 01/02/2021 Overview: 26 yo F w hx leukocytoclastic vasculitis, Sjogren's, fibromyalgia, sleep apnea, and prior hx anaphylactoid reaction ('throat closing up') to rituximab infusion who is admitted for premedication and monitoring for rituximab infusion. Vasculitis 03/31/2011 01/02/2021 Fibromyalgia syndrome 03/31/20112020 Overview: Diagnosed by Dr. Gutierrez, Rheumatology Acute tonsillitis 01/02/2021 documented as of this encounter (statuses as of 04/22/2023) [facility] History of Past illness Narrative* Problem Noted Date Diagnosed Date Resolved Date DVT prophylaxis 11/13/2011 01/02/2021 Overview: Heparin sub q 5000 u bid DISPOSITION AND FOLLOW-UP 11/13/2011 Overview: Plan: - D/C to home when cleared by rheum SUMMARY 11/12/2011 01/02/2021 Overview: 26 yo F w hx leukocytoclastic vasculitis, Sjogren's, fibromyalgia, sleep apnea, and prior hx anaphylactoid reaction ('throat closing up') to rituximab infusion who is admitted for premedication and monitoring for rituximab infusion. Vasculitis 03/31/2011 01/02/2021 Fibromyalgia syndrome 03/31/20112020 Overview: Diagnosed by Dr. Gutierrez, Rheumatology Acute tonsillitis 01/02/2021 documented as of this encounter (statuses as of 04/24/2023) [facility] History of Past illness Narrative* Problem Noted Date Diagnosed Date Resolved Date DVT prophylaxis 11/13/2011 01/02/2021 Overview: Heparin sub q 5000 u bid DISPOSITION AND FOLLOW-UP 11/13/2011 Overview: Plan: - D/C to home when cleared by rheum SUMMARY 11/12/2011 01/02/2021 Overview: 26 yo F w hx leukocytoclastic vasculitis, Sjogren's, fibromyalgia, sleep apnea, and prior hx anaphylactoid reaction ('throat closing up') to rituximab infusion who is admitted for premedication and monitoring for rituximab infusion. Vasculitis 03/31/2011 01/02/2021 Fibromyalgia syndrome 03/31/20112020 Overview: Diagnosed by Dr. Gutierrez, Rheumatology Acute tonsillitis 01/02/2021 documented as of this encounter (statuses as of 04/29/2023) [facility] History of Past illness Narrative* Problem Noted Date Diagnosed Date Resolved Date DVT prophylaxis 11/13/2011 01/02/2021 Overview: Heparin sub q 5000 u bid DISPOSITION AND FOLLOW-UP 11/13/2011 Overview: Plan: - D/C to home when cleared by rheum SUMMARY 11/12/2011 01/02/2021 Overview: 26 yo F w hx leukocytoclastic vasculitis, Sjogren's, fibromyalgia, sleep apnea, and prior hx anaphylactoid reaction ('throat closing up') to rituximab infusion who is admitted for premedication and monitoring for rituximab infusion. Vasculitis 03/31/2011 01/02/2021 Fibromyalgia syndrome 03/31/20112020 Overview: Diagnosed by Dr. Gutierrez, Rheumatology Acute tonsillitis 01/02/2021 documented as of this encounter (statuses as of 04/30/2023) [facility] History of Past illness Narrative* Problem Noted Date Diagnosed Date Resolved Date DVT prophylaxis 11/13/2011 01/02/2021 Overview: Heparin sub q 5000 u bid DISPOSITION AND FOLLOW-UP 11/13/2011 Overview: Plan: - D/C to home when cleared by rheum SUMMARY 11/12/2011 01/02/2021 Overview: 26 yo F w hx leukocytoclastic vasculitis, Sjogren's, fibromyalgia, sleep apnea, and prior hx anaphylactoid reaction ('throat closing up') to rituximab infusion who is admitted for premedication and monitoring for rituximab infusion. Vasculitis 03/31/2011 01/02/2021 Fibromyalgia syndrome 03/31/20112020 Overview: Diagnosed by Dr. Gutierrez, Rheumatology Acute tonsillitis 01/02/2021 documented as of this encounter (statuses as of 05/26/2023) [facility] History of Past illness Narrative* Problem Noted Date Diagnosed Date Resolved Date DVT prophylaxis 11/13/2011 01/02/2021 Overview: Heparin sub q 5000 u bid DISPOSITION AND FOLLOW-UP 11/13/2011 Overview: Plan: - D/C to home when cleared by rheum SUMMARY 11/12/2011 01/02/2021 Overview: 26 yo F w hx leukocytoclastic vasculitis, Sjogren's, fibromyalgia, sleep apnea, and prior hx anaphylactoid reaction ('throat closing up') to rituximab infusion who is admitted for premedication and monitoring for rituximab infusion. Vasculitis 03/31/2011 01/02/2021 Fibromyalgia syndrome 03/31/20112020 Overview: Diagnosed by Dr. Gutierrez, Rheumatology Acute tonsillitis 01/02/2021 documented as of this encounter (statuses as of 05/26/2023) [facility] History of Past illness Narrative* Problem Noted Date Diagnosed Date Resolved Date DVT prophylaxis 11/13/2011 01/02/2021 Overview: Heparin sub q 5000 u bid DISPOSITION AND FOLLOW-UP 11/13/2011 Overview: Plan: - D/C to home when cleared by rheum SUMMARY 11/12/2011 01/02/2021 Overview: 26 yo F w hx leukocytoclastic vasculitis, Sjogren's, fibromyalgia, sleep apnea, and prior hx anaphylactoid reaction ('throat closing up') to rituximab infusion who is admitted for premedication and monitoring for rituximab infusion. Vasculitis 03/31/2011 01/02/2021 Fibromyalgia syndrome 03/31/20112020 Overview: Diagnosed by Dr. Gutierrez, Rheumatology Acute tonsillitis 01/02/2021 documented as of this encounter (statuses as of 05/26/2023) [facility] History of Past illness Narrative* Problem Noted Date Diagnosed Date Resolved Date DVT prophylaxis 11/13/2011 01/02/2021 Overview: Heparin sub q 5000 u bid DISPOSITION AND FOLLOW-UP 11/13/2011 Overview: Plan: - D/C to home when cleared by rheum SUMMARY 11/12/2011 01/02/2021 Overview: 26 yo F w hx leukocytoclastic vasculitis, Sjogren's, fibromyalgia, sleep apnea, and prior hx anaphylactoid reaction ('throat closing up') to rituximab infusion who is admitted for premedication and monitoring for rituximab infusion. Vasculitis 03/31/2011 01/02/2021 Fibromyalgia syndrome 03/31/20112020 Overview: Diagnosed by Dr. Gutierrez, Rheumatology Acute tonsillitis 01/02/2021 documented as of this encounter (statuses as of 06/29/2023) [facility] Diagnosis Rash of hand- Primary Postcholecystectomy diarrhea Other postoperative functional disorders Gastroesophageal reflux disease, unspecified whether esophagitis present Encounter for long-term current use of medication [facility] Diagnosis Sjogren syndrome (HCC)- Primary Fibromyalgia Mylagia and myositis, unspecified Encounter for long-term (current) use of medications Encounter for long-term (current) use of other medications Depression, unspecified depression type Vitamin D deficiency Unspecified vitamin D deficiency [facility] Diagnosis Sjogren syndrome (HCC)- Primary Encounter for long-term (current) use of medications Encounter for long-term (current) use of other medications [facility] Diagnosis Low iron Iron deficiency anemia, unspecified Sjogren syndrome (HCC)- Primary Encounter for long-term (current) use of medications Encounter for long-term (current) use of other medications Fibromyalgia Mylagia and myositis, unspecified Depression, unspecified depression type [facility] Diagnosis Sjogren syndrome (HCC)- Primary Encounter for long-term (current) use of medications Encounter for long-term (current) use of other medications Fibromyalgia Mylagia and myositis, unspecified Depression, unspecified depression type [facility] Diagnosis Sjogren syndrome (HCC)- Primary Encounter for long-term (current) use of medications Encounter for long-term (current) use of other medications [facility] Diagnosis Sjogren syndrome (HCC)- Primary Fibromyalgia Mylagia and myositis, unspecified Encounter for long-term (current) use of medications Encounter for long-term (current) use of other medications Vitamin D deficiency Unspecified vitamin D deficiency Discoloration of skin of lower leg Dyschromia, unspecified [facility] Diagnosis Redness and swelling of thigh- Primary Rash of hand Leukocytoclastic vasculitis (HCC) Other specified hypersensitivity angiitis [facility] Diagnosis Sjogren syndrome (HCC)- Primary Encounter for long-term (current) use of medications Encounter for long-term (current) use of other medications [facility] Diagnosis Rash of hand- Primary [facility] Diagnosis Rash of hand- Primary Redness and swelling of thigh [facility] Diagnosis UTI symptoms- Primary Other symptoms involving urinary system Viral illness Unspecified viral infection, in conditions classified elsewhere and of unspecified site Dysuria Urgency of urination Urinary frequency Acute cough [facility] Diagnosis Rash of hand [facility] Diagnosis Sjogren syndrome (HCC)- Primary Leukocytoclastic vasculitis (HCC) Other specified hypersensitivity angiitis Long-term use of immunosuppressant medication Encounter for long-term (current) use of other medications Discoloration of skin of lower leg Dyschromia, unspecified Systemic lupus erythematosus, unspecified SLE type, unspecified organ involvement status (HCC) Rash and nonspecific skin eruption Rash and other nonspecific skin eruption [facility] Diagnosis Nausea vomiting and diarrhea- Primary Diarrhea Sinus congestion Other diseases of nasal cavity and sinuses Other fatigue [facility] Diagnosis Systemic lupus erythematosus, unspecified SLE type, unspecified organ involvement status (HCC)- Primary Rash and nonspecific skin eruption Rash and other nonspecific skin eruption [facility] Diagnosis Hand eczema- Primary Contact dermatitis and other eczema, due to unspecified cause Class 3 severe obesity due to excess calories with body mass index (BMI) of 50.0 to 59.9 in adult, unspecified whether serious comorbidity present (HCC) [facility] Diagnosis Systemic lupus erythematosus, unspecified SLE type, unspecified organ involvement status (HCC)- Primary Rash and nonspecific skin eruption Rash and other nonspecific skin eruption [facility] Diagnosis Leukocytoclastic vasculitis (HCC)- Primary Other specified hypersensitivity angiitis Hand eczema Contact dermatitis and other eczema, due to unspecified cause [facility] Diagnosis Rash of hand [facility] Diagnosis Rash of hand [facility] Diagnosis Systemic lupus erythematosus, unspecified SLE type, unspecified organ involvement status (HCC)- Primary Rash and nonspecific skin eruption Rash and other nonspecific skin eruption Encounter for long-term (current) use of medications Encounter for long-term (current) use of other medications [facility] Diagnosis Elevated LFTs- Primary Other abnormal blood chemistry RUQ abdominal pain Abdominal pain, right upper quadrant Fatty liver Other chronic nonalcoholic liver disease Non-seasonal allergic rhinitis, unspecified trigger [facility] Diagnosis Systemic lupus erythematosus, unspecified SLE type, unspecified organ involvement status (HCC)- Primary Rash and nonspecific skin eruption Rash and other nonspecific skin eruption [facility] Diagnosis Systemic lupus erythematosus, unspecified SLE type, unspecified organ involvement status (HCC)- Primary Rash and nonspecific skin eruption Rash and other nonspecific skin eruption Sjogren syndrome (HCC) Encounter for long-term (current) use of medications Encounter for long-term (current) use of other medications [facility] Diagnosis Systemic lupus erythematosus, unspecified SLE type, unspecified organ involvement status (HCC)- Primary Rash and nonspecific skin eruption Rash and other nonspecific skin eruption [facility]* Diagnosis Low iron Iron deficiency anemia, unspecified [facility] Diagnosis Sjogren syndrome (HCC)- Primary Fibromyalgia Mylagia and myositis, unspecified Encounter for long-term (current) use of medications Encounter for long-term (current) use of other medications [facility] Diagnosis Systemic lupus erythematosus, unspecified SLE type, unspecified organ involvement status (HCC)- Primary Rash and nonspecific skin eruption Rash and other nonspecific skin eruption [facility]* Diagnosis Injury of right peroneal nerve, subsequent encounter- Primary Sprain of right ankle, unspecified ligament, subsequent encounter Encounter for planned post-operative wound closure Planned postoperative wound closure Post-operative state Other postprocedural status Impaired mobility Other ill-defined conditions Impaired mobility and activities of daily living Other ill-defined conditions Urticarial vasculitis- Primary Hypersensitivity angiitis, unspecified Systemic lupus erythematosus with other organ involvement, unspecified SLE type (HCC) [facility] Diagnosis Rash of hand Urticarial vasculitis- Primary Hypersensitivity angiitis, unspecified Systemic lupus erythematosus with other organ involvement, unspecified SLE type (HCC) [facility]* Diagnosis Post-operative state- Primary Other postprocedural status Not bearing weight on lower extremity Peroneal tendinitis of right lower extremity Other enthesopathy of ankle and tarsus Urticarial vasculitis- Primary Hypersensitivity angiitis, unspecified Systemic lupus erythematosus with other organ involvement, unspecified SLE type (HCC) [facility]* Diagnosis Rash of hand Urticarial vasculitis- Primary Hypersensitivity angiitis, unspecified Systemic lupus erythematosus with other organ involvement, unspecified SLE type (HCC) [facility] Diagnosis Sjogren syndrome (HCC)- Primary Encounter for long-term (current) use of medications Encounter for long-term (current) use of other medications Systemic lupus erythematosus, unspecified SLE type, unspecified organ involvement status (HCC) Rash and nonspecific skin eruption Rash and other nonspecific skin eruption Urticarial vasculitis- Primary Hypersensitivity angiitis, unspecified Systemic lupus erythematosus with other organ involvement, unspecified SLE type (HCC) [facility] Diagnosis Encounter for screening mammogram for breast cancer Urticarial vasculitis- Primary Hypersensitivity angiitis, unspecified Systemic lupus erythematosus with other organ involvement, unspecified SLE type (HCC) [facility] Diagnostic Procedure Only (Routine) - Pending Review Specialty Diagnoses / Procedures Referred By Vy marvin Referred To Contact [facility] Diagnoses Encounter for screening mammogram for breast cancer Procedures TREVON SCREENING SCREENING MAMMOGRAPHY BI 2-VIEW BREAST INC CAD Yani Aguilar MD [address] [place] [address] [facility] [address] [place] [address] Referral ID Status Reason Start Date Expiration Date Visits Requested Visits Authorized [id number] Pending Review Auto-Generat ed Referral 06/24/2023 07/23/2024 1 1 [facility] Summary Purpose Family History No Family History Records FoundNo Family History Records Found Advance Directives Documents on File Type Date Recorded Patient Mate Relief Expl anation Advance Directive(s) 12/10/2018 6:56 PM Advance Directive(s) 04/16/2017 3:45 PM Reason for Referral Specialty Diagnoses / Procedures Referred By Vy marvin Referred To Contact Vascular Medicine Diagnoses Discoloration of skin of lower leg Procedures CONSULT TO VASCULAR MEDICINE OFFICE/OUTPATIENT [facility] 60-74 MINUTES Carmen Pennington, [employer]ARM FIELD [employer]NAGER.[employer] [address] [place] [address] Referral ID Status Reason Start Date Expiration Date Visits Requested Visits Authorized [id number] Authorized PCP Requested Referral 2 05/08/2023 1 1 Specialty Diagnoses / Procedures Referred By Contac t Referred To Contact Diagnoses Leukocytoclastic vasculitis (HCC) Hand eczema Ana Townsend V, MD [address] [place] [address] Referral ID Status Reason Start Date Expiration Date V isits Requested Visits Authorized [id number] Pending Review 1 1 Specialty Diagnoses / Procedures Referred By Contac t Referred To Contact Ent - Otolaryngology Diagnoses Non-seasonal allergic rhinitis, unspecified trigger Procedures CONSULT TO ENT Yani Aguilar MD [address] [place] [address] Isaias Albarran [address] [place] [address] Referral ID Status Reason Start Date Expiration Date Visits Requested Visits Authorized [id number] Ref Not Required PCP Requested Referral 12/08/2022 12/08/2023 1 1 Specialty Diagnoses / Procedures Referred By Contac t Referred To Contact Gastroenterology Diagnoses Elevated LFTs RUQ abdominal pain Fatty liver Procedures CONSULT TO GASTROENTEROLOGY Yani Aguilar MD [address] [place] [address] Friend, Mario Carolina, DO [address] [address] Referral ID Status Reason Start Date Expiration Date Visits Requested Visits Authorized [id number] Ref Not Required PCP Requested Referral 12/08/2022 12/08/2023 1 1 Specialty Diagnoses / Procedures Referred By Contac t Referred To Contact Allergy Diagnoses Sjogren syndrome (HCC) Encounter for long-term (current) use of medications Procedures CONSULT TO ALLERGY/IMMUNOLOGY OFFICE/OUTPATIENT [facility] 60-74 MINUTES Carmen Pennington, NAIN.[employer] [address] [place] [address] Referral ID Status Reason Start Date Expiration Date Visits Requested Visits Authorized [id number] Authorized PCP Requested Referral 03/09/2023 03/08/2024 1 1 Specialty Diagnoses / Procedures Referred By Vy marvin Referred To Contact Diagnoses Injury of right peroneal nerve, subsequent encounter Sprain of right ankle, unspecified ligament, subsequent encounter Post-operative state Impaired mobility Impaired mobility and activities of daily living Procedures CONSULT TO [facility] Ana Umana APRN.[employer] [address] [place] [address] Home Care [address] [place] [id number] Referral ID Status Reason Start Date Expiration Date Visits Requested Visits Authorized [id number] Pending Review PCP Requested Referral 04/22/2023 07/20/2023 1 1 Specialty Diagnoses / Procedures Referred By Vy marvin Referred To Contact [facility] Diagnoses Post-operative state Not bearing weight on lower extremity Peroneal tendinitis of right lower extremity Procedures CONSULT TO EQUIPMENT INSTALLATION PROFESSIONAL OCCUPATIONAL THERAPY EVAL HIGH COMPLEX 60 MINS Ana Umana APRN.[employer] [address] [place] [address] [facility] [address] [place] [address] Referral ID Status Reason Start Date Expiration Date Visits Requested Visits Authorized [id number] Pending Review Auto-Generat ed Referral 04/28/2023 04/27/2024 1 1 Medications Administered Section Inactive Administered Medications - up to 3 most recent administrations Medication Order MAR Action Action Date Dose Rate Site belimumab 1,651 mg in NaCl 0.9% 250 mL (BENLYSTA) 1,651 mg (10 mg/kg/dose 165.1 kg Treatment plan Recorded weight), INTRAVENOUS, at 250 mL/hr, Administer over 60 Minutes, ONCE, 1 dose, On 08/25/22 at 1230, Total Volume = 250 ml - EXP: 08/25/222029 (room temp) Protect From Light New Bag/Syringe/Bottle 08/25/2022 1:03 PM EST 1,651 mg 250 mL/hr Inactive Administered Medications - up to 3 most recent administrations Medication Order MAR Action Action Date Dose Rate Site belimumab 1,651 mg in NaCl 0.9% 250 mL (BENLYSTA) 1,651 mg (10 mg/kg/dose 165.1 kg Treatment plan Recorded weight), INTRAVENOUS, at 250 mL/hr, Administer over 60 Minutes, ONCE, 1 dose, On Thu10/06/22 at 1230, Total Volume = 250 ml - EXP: 10/06/22 2030 (room temp) Protect From Light New Bag/Syringe/Bottle 10/06/2022 12:59 PM EDT 1,651 mg 250 mL/hr Inactive Administered Medications - up to 3 most recent administrations Medication Order MAR Action Action Date Dose Rate Site belimumab 1,651 mg in NaCl 0.9% 250 mL (BENLYSTA) 1,651 mg (10 mg/kg/dose 165.1 kg Treatment plan Recorded weight), INTRAVENOUS, at 250 mL/hr, Administer over 60 Minutes, ONCE, 1 dose, On Thu11/03/22 at 1300, Total Volume = 250 ml - EXP: 11/03/22 2100 (room temp) Protect From Light New Bag/Syringe/Bottle 11/03/2022 1:05 PM EDT 1,651 mg 250 mL/hr Inactive Administered Medications - up to 3 most recent administrations Medication Order MAR Action Action Date Dose Rate Site belimumab 1,651 mg in NaCl 0.9% 250 mL (BENLYSTA) 1,651 mg (10 mg/kg/dose 165.1 kg Treatment plan Recorded weight), INTRAVENOUS, at 250 mL/hr, Administer over 60 Minutes, ONCE, 1 dose, On Thu12/29/22 at 1330, Total Volume = 250 ml - EXP: 12/29/22 2100 Protect From Light New Bag/Syringe/Bottle 12/29/2022 1:45 PM EDT 1,651 mg 250 mL/hr Inactive Administered Medications - up to 3 most recent administrations Medication Order MAR Action Action Date Dose Rate Site belimumab 1,651 mg in NaCl 0.9% 250 mL (BENLYSTA) 1,651 mg (10 mg/kg/dose 165.1 kg Treatment plan Recorded weight), INTRAVENOUS, at 250 mL/hr, Administer over 60 Minutes, ONCE, 1 dose, On Thu01/26/23 at 1230, Total Volume - EXP: 18301/26/23 Protect From Light New Bag/Syringe/Bottle 01/26/2023 12:38 PM EDT 1,651 mg 250 mL/hr Inactive Administered Medications - up to 3 most recent administrations Medication Order MAR Action Action Date Dose Rate Site belimumab 1,651 mg in NaCl 0.9% 250 mL (BENLYSTA) 1,651 mg (10 mg/kg/dose 165.1 kg Treatment plan Recorded weight), INTRAVENOUS, at 250 mL/hr, Administer over 60 Minutes, ONCE, 1 dose, On Thu02/24/23 at 1230, Total Volume - EXP: 02/24/232029 (room temp) Protect From Light New Bag/Syringe/Bottle 02/24/2023 12:36 PM EDT 1,651 mg 250 mL/hr Inactive Administered Medications - up to 3 most recent administrations Medication Order MAR Action Action Date Dose Rate Site belimumab 1,651 mg in NaCl 0.9% 250 mL (BENLYSTA) 1,651 mg (10 mg/kg/dose 165.1 kg Treatment plan Recorded weight), INTRAVENOUS, at 250 mL/hr, Administer over 60 Minutes, ONCE, 1 dose, On Thu03/23/23 at 1230, Total Volume - EXP: 202903/23/23 Protect From Light New Bag/Syringe/Bottle 03/23/2023 12:44 PM EDT 1,651 mg 250 mL/hr Inactive Administered Medications - up to 3 most recent administrations Medication Order MAR Action Action Date Dose Rate Site belimumab 1,651 mg in NaCl 0.9% 250 mL (BENLYSTA) 1,651 mg (10 mg/kg/dose 165.1 kg Treatment plan Recorded weight), INTRAVENOUS, at 250 mL/hr, Administer over 60 Minutes, ONCE, 1 dose, On Thu05/25/23 at 1300, Total Volume - EXP: 05/25/23 1845 Protect From Light New Bag/Syringe/Bottle 05/25/2023 1:17 PM EST 1,651 mg 250 mL/hr Additional Source Comments INFORMATION SOURCE (unrecogn ized section and content) DATE CREATED AUTHOR AUTHOR'S ORGANIZ ATION 06/29/2023 [facility] Source Comments (unrecognize d section and content) In the event this informatio n is protected by the Federal Confidentiality of Alcohol and Drug Abuse Patient Records regulations: The Federal rules restrict any use of the information to criminally investigate or prosecute any alcohol or drug abuse patient.[facility] HealthcareIn the event this information is protected by the Federal Confidentiality of Alcohol and Drug Abuse Patient Records regulations: The Federal rules restrict any use of the information to criminally investigate or prosecute any alcohol or drug abuse patient.[facility] HealthcareIn the event this information is protected by the Federal Confidentiality of Alcohol and Drug Abuse Patient Records regulations: The Federal rules restrict any use of the information to criminally investigate or prosecute any alcohol or drug abuse patient.[facility] HealthcareIn the event this information is protected by the Federal Confidentiality of Alcohol and Drug Abuse Patient Records regulations: The Federal rules restrict any use of the information to criminally investigate or prosecute any alcohol or drug abuse patient.[facility] HealthcareIn the event this information is protected by the Federal Confidentiality of Alcohol and Drug Abuse Patient Records regulations: The Federal rules restrict any use of the information to criminally investigate or prosecute any alcohol or drug abuse patient.[facility] HealthcareIn the event this information is protected by the Federal Confidentiality of Alcohol and Drug Abuse Patient Records regulations: The Federal rules restrict any use of the information to criminally investigate or prosecute any alcohol or drug abuse patient.[facility] HealthcareIn the event this information is protected by the Federal Confidentiality of Alcohol and Drug Abuse Patient Records regulations: The Federal rules restrict any use of the information to criminally investigate or prosecute any alcohol or drug abuse patient.[facility] HealthcareIn the event this information is protected by the Federal Confidentiality of Alcohol and Drug Abuse Patient Records regulations: The Federal rules restrict any use of the information to criminally investigate or prosecute any alcohol or drug abuse patient.[facility] HealthcareIn the event this information is protected by the Federal Confidentiality of Alcohol and Drug Abuse Patient Records regulations: The Federal rules restrict any use of the information to criminally investigate or prosecute any alcohol or drug abuse patient.[facility] HealthcareIn the event this information is protected by the Federal Confidentiality of Alcohol and Drug Abuse Patient Records regulations: The Federal rules restrict any use of the information to criminally investigate or prosecute any alcohol or drug abuse patient.[facility] HealthcareIn the event this information is protected by the Federal Confidentiality of Alcohol and Drug Abuse Patient Records regulations: The Federal rules restrict any use of the information to criminally investigate or prosecute any alcohol or drug abuse patient.[facility] HealthcareIn the event this information is protected by the Federal Confidentiality of Alcohol and Drug Abuse Patient Records regulations: The Federal rules restrict any use of the information to criminally investigate or prosecute any alcohol or drug abuse patient.[facility] HealthcareIn the event this information is protected by the Federal Confidentiality of Alcohol and Drug Abuse Patient Records regulations: The Federal rules restrict any use of the information to criminally investigate or prosecute any alcohol or drug abuse patient.[facility] HealthcareIn the event this information is protected by the Federal Confidentiality of Alcohol and Drug Abuse Patient Records regulations: The Federal rules restrict any use of the information to criminally investigate or prosecute any alcohol or drug abuse patient.[facility] HealthcareIn the event this information is protected by the Federal Confidentiality of Alcohol and Drug Abuse Patient Records regulations: The Federal rules restrict any use of the information to criminally investigate or prosecute any alcohol or drug abuse patient.[facility] HealthcareIn the event this information is protected by the Federal Confidentiality of Alcohol and Drug Abuse Patient Records regulations: The Federal rules restrict any use of the information to criminally investigate or prosecute any alcohol or drug abuse patient.[facility] HealthcareIn the event this information is protected by the Federal Confidentiality of Alcohol and Drug Abuse Patient Records regulations: The Federal rules restrict any use of the information to criminally investigate or prosecute any alcohol or drug abuse patient.[facility] HealthcareIn the event this information is protected by the Federal Confidentiality of Alcohol and Drug Abuse Patient Records regulations: The Federal rules restrict any use of the information to criminally investigate or prosecute any alcohol or drug abuse patient.[facility] HealthcareIn the event this information is protected by the Federal Confidentiality of Alcohol and Drug Abuse Patient Records regulations: The Federal rules restrict any use of the information to criminally investigate or prosecute any alcohol or drug abuse patient.[facility] HealthcareIn the event this information is protected by the Federal Confidentiality of Alcohol and Drug Abuse Patient Records regulations: The Federal rules restrict any use of the information to criminally investigate or prosecute any alcohol or drug abuse patient.[facility] HealthcareIn the event this information is protected by the Federal Confidentiality of Alcohol and Drug Abuse Patient Records regulations: The Federal rules restrict any use of the information to criminally investigate or prosecute any alcohol or drug abuse patient.[facility] HealthcareIn the event this information is protected by the Federal Confidentiality of Alcohol and Drug Abuse Patient Records regulations: The Federal rules restrict any use of the information to criminally investigate or prosecute any alcohol or drug abuse patient.[facility] HealthcareIn the event this information is protected by the Federal Confidentiality of Alcohol and Drug Abuse Patient Records regulations: The Federal rules restrict any use of the information to criminally investigate or prosecute any alcohol or drug abuse patient.[facility] HealthcareIn the event this information is protected by the Federal Confidentiality of Alcohol and Drug Abuse Patient Records regulations: The Federal rules restrict any use of the information to criminally investigate or prosecute any alcohol or drug abuse patient.[facility] HealthcareIn the event this information is protected by the Federal Confidentiality of Alcohol and Drug Abuse Patient Records regulations: The Federal rules restrict any use of the information to criminally investigate or prosecute any alcohol or drug abuse patient.[facility] HealthcareIn the event this information is protected by the Federal Confidentiality of Alcohol and Drug Abuse Patient Records regulations: The Federal rules restrict any use of the information to criminally investigate or prosecute any alcohol or drug abuse patient.[facility] HealthcareIn the event this information is protected by the Federal Confidentiality of Alcohol and Drug Abuse Patient Records regulations: The Federal rules restrict any use of the information to criminally investigate or prosecute any alcohol or drug abuse patient.[facility] HealthcareIn the event this information is protected by the Federal Confidentiality of Alcohol and Drug Abuse Patient Records regulations: The Federal rules restrict any use of the information to criminally investigate or prosecute any alcohol or drug abuse patient.[facility] HealthcareIn the event this information is protected by the Federal Confidentiality of Alcohol and Drug Abuse Patient Records regulations: The Federal rules restrict any use of the information to criminally investigate or prosecute any alcohol or drug abuse patient.[facility] HealthcareIn the event this information is protected by the Federal Confidentiality of Alcohol and Drug Abuse Patient Records regulations: The Federal rules restrict any use of the information to criminally investigate or prosecute any alcohol or drug abuse patient.[facility] HealthcareIn the event this information is protected by the Federal Confidentiality of Alcohol and Drug Abuse Patient Records regulations: The Federal rules restrict any use of the information to criminally investigate or prosecute any alcohol or drug abuse patient.[facility] HealthcareIn the event this information is protected by the Federal Confidentiality of Alcohol and Drug Abuse Patient Records regulations: The Federal rules restrict any use of the information to criminally investigate or prosecute any alcohol or drug abuse patient.[facility] HealthcareIn the event this information is protected by the Federal Confidentiality of Alcohol and Drug Abuse Patient Records regulations: The Federal rules restrict any use of the information to criminally investigate or prosecute any alcohol or drug abuse patient.[facility] HealthcareIn the event this information is protected by the Federal Confidentiality of Alcohol and Drug Abuse Patient Records regulations: The Federal rules restrict any use of the information to criminally investigate or prosecute any alcohol or drug abuse patient.[facility] HealthcareIn the event this information is protected by the Federal Confidentiality of Alcohol and Drug Abuse Patient Records regulations: The Federal rules restrict any use of the information to criminally investigate or prosecute any alcohol or drug abuse patient.[facility] HealthcareIn the event this information is protected by the Federal Confidentiality of Alcohol and Drug Abuse Patient Records regulations: The Federal rules restrict any use of the information to criminally investigate or prosecute any alcohol or drug abuse patient.[facility] HealthcareIn the event this information is protected by the Federal Confidentiality of Alcohol and Drug Abuse Patient Records regulations: The Federal rules restrict any use of the information to criminally investigate or prosecute any alcohol or drug abuse patient.[facility] HealthcareIn the event this information is protected by the Federal Confidentiality of Alcohol and Drug Abuse Patient Records regulations: The Federal rules restrict any use of the information to criminally investigate or prosecute any alcohol or drug abuse patient.[facility] HealthcareIn the event this information is protected by the Federal Confidentiality of Alcohol and Drug Abuse Patient Records regulations: The Federal rules restrict any use of the information to criminally investigate or prosecute any alcohol or drug abuse patient.[facility] HealthcareIn the event this information is protected by the Federal Confidentiality of Alcohol and Drug Abuse Patient Records regulations: The Federal rules restrict any use of the information to criminally investigate or prosecute any alcohol or drug abuse patient.[facility] HealthcareIn the event this information is protected by the Federal Confidentiality of Alcohol and Drug Abuse Patient Records regulations: The Federal rules restrict any use of the information to criminally investigate or prosecute any alcohol or drug abuse patient.[facility] HealthcareIn the event this information is protected by the Federal Confidentiality of Alcohol and Drug Abuse Patient Records regulations: The Federal rules restrict any use of the information to criminally investigate or prosecute any alcohol or drug abuse patient.[facility] HealthcareIn the event this information is protected by the Federal Confidentiality of Alcohol and Drug Abuse Patient Records regulations: The Federal rules restrict any use of the information to criminally investigate or prosecute any alcohol or drug abuse patient.[facility] HealthcareIn the event this information is protected by the Federal Confidentiality of Alcohol and Drug Abuse Patient Records regulations: The Federal rules restrict any use of the information to criminally investigate or prosecute any alcohol or drug abuse patient.[facility] HealthcareIn the event this information is protected by the Federal Confidentiality of Alcohol and Drug Abuse Patient Records regulations: The Federal rules restrict any use of the information to criminally investigate or prosecute any alcohol or drug abuse patient.[facility] HealthcareIn the event this information is protected by the Federal Confidentiality of Alcohol and Drug Abuse Patient Records regulations: The Federal rules restrict any use of the information to criminally investigate or prosecute any alcohol or drug abuse patient.[facility] HealthcareIn the event this information is protected by the Federal Confidentiality of Alcohol and Drug Abuse Patient Records regulations: The Federal rules restrict any use of the information to criminally investigate or prosecute any alcohol or drug abuse patient.[facility] HealthcareIn the event this information is protected by the Federal Confidentiality of Alcohol and Drug Abuse Patient Records regulations: The Federal rules restrict any use of the information to criminally investigate or prosecute any alcohol or drug abuse patient.[facility] HealthcareIn the event this information is protected by the Federal Confidentiality of Alcohol and Drug Abuse Patient Records regulations: The Federal rules restrict any use of the information to criminally investigate or prosecute any alcohol or drug abuse patient.[facility] HealthcareIn the event this information is protected by the Federal Confidentiality of Alcohol and Drug Abuse Patient Records regulations: The Federal rules restrict any use of the information to criminally investigate or prosecute any alcohol or drug abuse patient.[facility] HealthcareIn the event this information is protected by the Federal Confidentiality of Alcohol and Drug Abuse Patient Records regulations: The Federal rules restrict any use of the information to criminally investigate or prosecute any alcohol or drug abuse patient.[facility] HealthcareIn the event this information is protected by the Federal Confidentiality of Alcohol and Drug Abuse Patient Records regulations: The Federal rules restrict any use of the information to criminally investigate or prosecute any alcohol or drug abuse patient.[facility] HealthcareIn the event this information is protected by the Federal Confidentiality of Alcohol and Drug Abuse Patient Records regulations: The Federal rules restrict any use of the information to criminally investigate or prosecute any alcohol or drug abuse patient.[facility] HealthcareIn the event this information is protected by the Federal Confidentiality of Alcohol and Drug Abuse Patient Records regulations: The Federal rules restrict any use of the information to criminally investigate or prosecute any alcohol or drug abuse patient.[facility] HealthcareIn the event this information is protected by the Federal Confidentiality of Alcohol and Drug Abuse Patient Records regulations: The Federal rules restrict any use of the information to criminally investigate or prosecute any alcohol or drug abuse patient.[facility] HealthcareIn the event this information is protected by the Federal Confidentiality of Alcohol and Drug Abuse Patient Records regulations: The Federal rules restrict any use of the information to criminally investigate or prosecute any alcohol or drug abuse patient.[facility] HealthcareIn the event this information is protected by the Federal Confidentiality of Alcohol and Drug Abuse Patient Records regulations: The Federal rules restrict any use of the information to criminally investigate or prosecute any alcohol or drug abuse patient.[facility] HealthcareIn the event this information is protected by the Federal Confidentiality of Alcohol and Drug Abuse Patient Records regulations: The Federal rules restrict any use of the information to criminally investigate or prosecute any alcohol or drug abuse patient.[facility] HealthcareIn the event this information is protected by the Federal Confidentiality of Alcohol and Drug Abuse Patient Records regulations: The Federal rules restrict any use of the information to criminally investigate or prosecute any alcohol or drug abuse patient.[facility] HealthcareIn the event this information is protected by the Federal Confidentiality of Alcohol and Drug Abuse Patient Records regulations: The Federal rules restrict any use of the information to criminally investigate or prosecute any alcohol or drug abuse patient.[facility] HealthcareIn the event this information is protected by the Federal Confidentiality of Alcohol and Drug Abuse Patient Records regulations: The Federal rules restrict any use of the information to criminally investigate or prosecute any alcohol or drug abuse patient.[facility] HealthcareIn the event this information is protected by the Federal Confidentiality of Alcohol and Drug Abuse Patient Records regulations: The Federal rules restrict any use of the information to criminally investigate or prosecute any alcohol or drug abuse patient.[facility] HealthcareIn the event this information is protected by the Federal Confidentiality of Alcohol and Drug Abuse Patient Records regulations: The Federal rules restrict any use of the information to criminally investigate or prosecute any alcohol or drug abuse patient.[facility] HealthcareIn the event this information is protected by the Federal Confidentiality of Alcohol and Drug Abuse Patient Records regulations: The Federal rules restrict any use of the information to criminally investigate or prosecute any alcohol or drug abuse patient.[facility] HealthcareIn the event this information is protected by the Federal Confidentiality of Alcohol and Drug Abuse Patient Records regulations: The Federal rules restrict any use of the information to criminally investigate or prosecute any alcohol or drug abuse patient.[facility] HealthcareIn the event this information is protected by the Federal Confidentiality of Alcohol and Drug Abuse Patient Records regulations: The Federal rules restrict any use of the information to criminally investigate or prosecute any alcohol or drug abuse patient.[facility] HealthcareIn the event this information is protected by the Federal Confidentiality of Alcohol and Drug Abuse Patient Records regulations: The Federal rules restrict any use of the information to criminally investigate or prosecute any alcohol or drug abuse patient.[facility] HealthcareIn the event this information is protected by the Federal Confidentiality of Alcohol and Drug Abuse Patient Records regulations: The Federal rules restrict any use of the information to criminally investigate or prosecute any alcohol or drug abuse patient.[facility] HealthcareIn the event this information is protected by the Federal Confidentiality of Alcohol and Drug Abuse Patient Records regulations: The Federal rules restrict any use of the information to criminally investigate or prosecute any alcohol or drug abuse patient.[facility] HealthcareIn the event this information is protected by the Federal Confidentiality of Alcohol and Drug Abuse Patient Records regulations: The Federal rules restrict any use of the information to criminally investigate or prosecute any alcohol or drug abuse patient.[facility] HealthcareIn the event this information is protected by the Federal Confidentiality of Alcohol and Drug Abuse Patient Records regulations: The Federal rules restrict any use of the information to criminally investigate or prosecute any alcohol or drug abuse patient.[facility] HealthcareIn the event this information is protected by the Federal Confidentiality of Alcohol and Drug Abuse Patient Records regulations: The Federal rules restrict any use of the information to criminally investigate or prosecute any alcohol or drug abuse patient.[facility] HealthcareIn the event this information is protected by the Federal Confidentiality of Alcohol and Drug Abuse Patient Records regulations: The Federal rules restrict any use of the information to criminally investigate or prosecute any alcohol or drug abuse patient.[facility] HealthcareIn the event this information is protected by the Federal Confidentiality of Alcohol and Drug Abuse Patient Records regulations: The Federal rules restrict any use of the information to criminally investigate or prosecute any alcohol or drug abuse patient.[facility] HealthcareIn the event this information is protected by the Federal Confidentiality of Alcohol and Drug Abuse Patient Records regulations: The Federal rules restrict any use of the information to criminally investigate or prosecute any alcohol or drug abuse patient.[facility] HealthcareIn the event this information is protected by the Federal Confidentiality of Alcohol and Drug Abuse Patient Records regulations: The Federal rules restrict any use of the information to criminally investigate or prosecute any alcohol or drug abuse patient.[facility] Reason for Visit (unrecogniz ed section and content) Specialty Diagnoses / Procedures Referred By Vy t Referred To Contact Diagnoses Systemic lupus erythematosus, unspecified SLE type, unspecified organ involvement status (HCC) Rash and nonspecific skin eruption Procedures [place] [address] [place] [address] [address] [facility] [place] [address] [place] [address] Referral ID Status Reason Start Date Expiration Date V isits Requested Visits Authorized [id number] Authorized 07/08/2022 06/21/2023 99 99 Reason Comments Medication Problem Reason Comments Follow Up Reason Comments Patient Update Reason Comments Sjogren's Disease Vasculitis Reason Comments Medication Question Reason Onset Date Comments Refill Request 10/29/2021 Reason Comments Results Reason Comments Refill Request Reason Onset Date Comments Refill Request 12/31/2021 Reason Onset Date Comments Refill Request 01/29/2022 Reason Comments Established Patient BP 158/90 Reason Comments Other Follow up Reason Onset Date Comments Refill Request 02/10/2022 Reason Comments fell and hit head Reason Onset Date Comments Refill Request 03/27/2022 Reason Comments Certificate of Medical Necessity Reason Onset Date Comments Refill Request 04/14/2022 Reason Comments Redness to Left Leg Reason Comments Established Patient Reason Comments Rash Reason Comments Follow Up Rash Reason Comments Fatigue Reason Comments 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 Dizziness Reason Comments Flu Like Symptoms Reason Comments Patient Question Patient Update Reason Comments Benefits Investigation Reason Comments Patient Question Specialty Diagnoses / Procedures Referred By Contac t Referred To Contact Diagnoses Systemic lupus erythematosus, unspecified SLE type, unspecified organ involvement status ([facility]) Rash and nonspecific skin eruption Procedures [place] [address] [place] [address] [place] [facility] [place] [address] [place] [address] Referral ID Status Reason Start Date Expiration Date V isits Requested Visits Authorized [id number] Authorized 07/08/2022 10/06/2022 1 1 Reason Comments Medication Problem Reason Comments F/U 6 months Reason Comments Belimumab Reason Comments Follow Up 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 Reason Onset Date Comments Refill Request 10/21/2022 Reason Comments Orders Infusion Reason Comments FYI-No Action Needed Reason Comments Orders Reason Comments Patient Question Regarding lab result s Reason Comments Chemotherapy Treatment Reason Onset Date Comments Refill Request 01/28/2023 Reason Comments DME Order: Tub transfer bench Reason Onset Date Comments Refill Request 03/02/2023 Reason Comments Sjogren's Disease Reason Onset Date Comments Refill Request 03/30/2023 Reason Comments Patient Question Reason Comments Home Health Info Reason Onset Date Comments Refill Request 04/27/2023 Reason Onset Date Comments Refill Request 05/25/2023 Care Teams (unrecognized sec tion and content) Technical Buyer Relationship Specialty Start Date End Date Yani Aguilar MD [address] [place] [address], [place] [address] PCP - General Internal Medicine 03/24/18 Technical Buyer Relationship Specialty Start Date End Date Yani Aguilar MD [address] [place] [address], [place] [address] PCP - General Internal Medicine 03/24/18 Technical Buyer Relationship Specialty Start Date End Date Yani Aguilar MD [address] [place] [address], [place] [address] PCP - General Internal Medicine 03/24/18 Technical Buyer Relationship Specialty Start Date End Date Yani Aguilar MD [address] [place] [address], [place] [address] PCP - General Internal Medicine 03/24/18 Technical Buyer Relationship Specialty Start Date End Date Yani Aguilar MD [address] [place] [address], [place] [address] PCP - General Internal Medicine 03/24/18 Technical Buyer Relationship Specialty Start Date End Date Yani Aguilar MD [address] [place] [address], [place] [address] PCP - General Internal Medicine 03/24/18 Technical Buyer Relationship Specialty Start Date End Date Yani Aguilar MD [address] [place] [address], [place] [address] PCP - General Internal Medicine 03/24/18 Technical Buyer Relationship Specialty Start Date End Date Yani Aguilar MD [address] [place] [address], [place] [address] PCP - General Internal Medicine 03/24/18 Technical Buyer Relationship Specialty Start Date End Date Yani Aguilar MD [address] [place] [address], [place] [address] PCP - General Internal Medicine 03/24/18 Technical Buyer Relationship Specialty Start Date End Date Yani Aguilar MD [address] [facility] [place] [address] PCP - General Internal Medicine 03/24/18 Technical Buyer Relationship Specialty Start Date End Date Yani Aguilar MD [address] [facility] [place] [address] PCP - General Internal Medicine 03/24/18 Technical Buyer Relationship Specialty Start Date End Date Yani Aguilar MD [address] [place] [address], [place] [address] PCP - General Internal Medicine 03/24/18 Technical Buyer Relationship Specialty Start Date End Date Yani Aguilar MD [address] [place] [address], [place] [address] PCP - General Internal Medicine 03/24/18 Technical Buyer Relationship Specialty Start Date End Date Yani Aguilar MD [address] [place] [address], [place] [address] PCP - General Internal Medicine 03/24/18 Technical Buyer Relationship Specialty Start Date End Date Yani Aguilar MD [facility] [place] [address] PCP - General Internal Medicine 03/24/18 Technical Buyer Relationship Specialty Start Date End Date Yani Aguilar MD [facility] [place] [address] PCP - General Internal Medicine 03/24/18 Technical Buyer Relationship Specialty Start Date End Date Yani Aguilar MD [address] [place] [address], [place] [address] PCP - General Internal Medicine 03/24/18 Technical Buyer Relationship Specialty Start Date End Date Yani Aguilar MD [address] [place] [address], [place] [address] PCP - General Internal Medicine 03/24/18 Technical Buyer Relationship Specialty Start Date End Date Yani Aguilar MD [address] [place] [address], [place] [address] PCP - General Internal Medicine 03/24/18 Technical Buyer Relationship Specialty Start Date End Date Yani Aguilar MD [address] [place] [address], [place] [address] PCP - General Internal Medicine 03/24/18 Technical Buyer Relationship Specialty Start Date End Date Yani Aguilar MD [address] [place] [address], [place] [address] PCP - General Internal Medicine 03/24/18 Technical Buyer Relationship Specialty Start Date End Date Yani Aguilar MD [address] [place] [address], [place] [address] PCP - General Internal Medicine 03/24/18 Technical Buyer Relationship Specialty Start Date End Date Yani Aguilar MD [address] [place] [address], [place] [address] PCP - General Internal Medicine 03/24/18 Technical Buyer Relationship Specialty Start Date End Date Yani Aguilar MD [address] [place] [address], [place] [address] PCP - General Internal Medicine 03/24/18 Technical Buyer Relationship Specialty Start Date End Date Yani Aguilar MD [address] [place] [address], [place] [address] PCP - General Internal Medicine 03/24/18 Technical Buyer Relationship Specialty Start Date End Date Yani Aguilar MD [address] [place] [address], [place] [address] PCP - General Internal Medicine 03/24/18 Technical Buyer Relationship Specialty Start Date End Date Yani Aguilar MD [address] [facility] [place] [address] PCP - General Internal Medicine 03/24/18 Technical Buyer Relationship Specialty Start Date End Date Yani Aguilar MD [address] [facility] [place] [address] PCP - General Internal Medicine 03/24/18 Technical Buyer Relationship Specialty Start Date End Date Yani Aguilar MD [address] [facility] [place] [address] PCP - General Internal Medicine 03/24/18 Technical Buyer Relationship Specialty Start Date End Date Yani Aguilar MD [address] [facility] [place] [address] PCP - General Internal Medicine 03/24/18 Technical Buyer Relationship Specialty Start Date End Date Yani Aguilar MD [address] [facility] [place] [address] PCP - General Internal Medicine 03/24/18 Technical Buyer Relationship Specialty Start Date End Date Yani Aguilar MD [address] [facility] [place] [address] PCP - General Internal Medicine 03/24/18 Technical Buyer Relationship Specialty Start Date End Date Yani Aguilar MD [address] [facility] [place] [address] PCP - General Internal Medicine 03/24/18 Technical Buyer Relationship Specialty Start Date End Date Yani Aguilar MD [address] [facility] [place] [address] PCP - General Internal Medicine 03/24/18 Technical Buyer Relationship Specialty Start Date End Date Yani Aguilar MD [address] [place] [place] [address] PCP - General Internal Medicine 03/24/18 Technical Buyer Relationship Specialty Start Date End Date Yani Aguilar MD [address] [place] [place] [address] PCP - General Internal Medicine 03/24/18 Technical Buyer Relationship Specialty Start Date End Date Yani Aguilar MD [address] [place] [address] PCP - General Internal Medicine 03/24/18 Technical Buyer Relationship Specialty Start Date End Date Yani Aguilar MD [address] [place] [address] PCP - General Internal Medicine 03/24/18 Technical Buyer Relationship Specialty Start Date End Date Yani Aguilar MD [address] [place] [address] PCP - General Internal Medicine 03/24/18 Technical Buyer Relationship Specialty Start Date End Date Yani Aguilar MD [address] [facility] [place] [address] PCP - General Internal Medicine 03/24/18 Technical Buyer Relationship Specialty Start Date End Date Yani Aguilar MD [address] [place] [place] [address] PCP - General Internal Medicine 03/24/18 Technical Buyer Relationship Specialty Start Date End Date Yani Aguilar MD [address] [place] [address] PCP - General Internal Medicine 03/24/18 Technical Buyer Relationship Specialty Start Date End Date Yani Aguilar MD [address] [place] [address] PCP - General Internal Medicine 03/24/18 FOR RECORDS PERTAINING TO PATIENTS WHO ARE OR HAVE BEEN ENROLLED IN A CHEMICAL DEPENDENCY/SUBSTANCEABUSE PROGRAM, SOME INFORMATION MAY BE OMITTED. This clinical summary was aggregated from multiple sources. Caution should be exercised in using it in the provision of clinical care. This summary normalizes information from multiple sources, and as a consequence, information in this document may materially change the coding, format and clinical context of patient data. In addition, data may be omitted in some cases. CLINICAL DECISIONS SHOULD BE BASED ON THE PRIMARY CLINICAL RECORDS. [facility] [employer] [facility]. provides no warranty or guarantee of the accuracy or completeness of information in this document.
[2023-07-01 16:33] LABS: Absolute Neutrophil Count 5.2 X10^3/uL (2.0-7.7); Basophil# 0.03 X10^3/uL; Basophil% 0.4 % (0-1); Eosinophil# 0.15 X10^3/uL; Eosinophils% 2.2 % (0-5); Hematocrit 42.8 % (37-47); Lymphocyte % 11.8 % (19-41); Mean Corp Hgb Conc 30.4 g/dL (32-36); Mean Corpuscular Hgb 25.4 pg (27.0-32.0); Mean Corpuscular Volume 83.8 fL (81-99); Mean Platelet Vol. 9.3 fl (6.2-12.0); Monocyte# 0.57 X10^3/uL; Monocyte% 8.4 % (0-10); NRBC Flagged by Analyzer 0 % (0-5); Neutrophil # 5.18 X10^3/uL (2.7-7.7); Neutrophil % 76.3 % (47-70); Platelet Count 377 K/mm3 (150-450); RBC Distribution Width CV 14.5 % (11.6-14.6); RBC Distribution Width SD 44.1 fl (35.1-43.9); Red Blood Count 5.11 M/mm3 (4.2-5.4); White Blood Count 6.8 K/mm3 (4.4-11.0)
[2023-07-01] MEDS: Vancomycin HCl 2,000 MG in 0.9% Normal Saline (500mL Bag) 500 ML 250 MG IV (16:45)
[2023-07-01 16:47] LABS: International Normalized Ratio 1.1
[2023-07-01 16:54] LABS: Anion Gap 9 (5-15); BUN 5 mg/dL (7-18); BUN/Creat Ratio 6.5 RATIO (10-20); Calcium,Total 9.4 mg/dL (8.5-10.1); Chloride 107 mmol/L (98-107); Creatinine, Serum 0.76 mg/dL (0.55-1.02); EST Glomerular Filtration Rate 89 mL/min (>60); Est Glom Filt Rate - Afr Amer 108 mL/min (>60); Glucose 94 mg/dL (74-106); Potassium 3.5 mmol/L (3.5-5.1); Sodium Level 141 mmol/L (136-145)
[2023-07-01 17:04] LABS: Lactic Acid 2.8 mmol/L (0.4-1.9)
[2023-07-01 20:16] LABS: Reflex Lactate? Y
== END 2023-07-01 19:38 | disposition home or self-care (01) ==
PROVIDERS: Emergency Provider Emergency Medicine; PCP Internal Medicine; Visit Provider Emergency Medicine
DX: G89.18 Other acute postprocedural pain (principal); D68.62 Lupus anticoagulant syndrome; Z97.3 Presence of spectacles and contact lenses; B99.8 Other infectious disease; K21.9 Gastro-esophageal reflux disease without esophagitis; Z79.899 Other long term (current) drug therapy; F41.9 Anxiety disorder, unspecified; G47.419 Narcolepsy without cataplexy; Z79.82 Long term (current) use of aspirin; Z90.49 Acquired absence of other specified parts of digestive tract
CPT/HCPCS: 71045; 73610; 80048; 83605; 85025; 85610; 85730; 87040; 87070; 87077; 87186; 87205; 96365; 96366; 96368; 96375; 99283; J7030; J7040; J7050; A4216; J2405

== ENCOUNTER 2023-07-16 11:00 | Outpatient (RCR) | payer MEDICARE, MEDICAID, SELFPAY ==
[2023-06-22 00:27] VITALS: BP 154/97; PULSE 90; RESP 18; TEMP 36.5
[2023-06-25 10:41] VITALS: BP 110/81; PULSE 101; RESP 16; TEMP 36.6
--- NOTE | 2023-06-25 10:52 | PN.PCM_ITS ---
History of Present Illness Date of Service: 06/25/23 Chief Complaint: Surgical wound dehiscence right leg History of Wound: Patient is a 38-year-old female who subsequently developed a surgical wound dehiscence of her right lateral lower extremity. She previously underwent surgery for primary repair of split tear of the peroneus brevis tendon, primary repair of anterior tibiofibular ligament (AITFL), and syndesmotic reduction via tight rope of the right lower extremity on 04/24/2023. Following removal of sutures she developed surgical wound dehiscence secondary to continued lower extremity swelling via chronic venous insufficiency. She did undergo debridement in office 06/05/2023 and Deidre was applied at this time with Tubigrip compression. She has worn compression stockings to manage lower extremity swelling prior to surgical intervention. Patient is also noted to have autoimmune disease and is managed by rheumatology with medication and did resume all medications 2 weeks post operative per rheumatology. She was referred to the wound care center for continued wound healing. She has been applying Deidre and dry sterile dressings daily. She denies N/V/F/chills. Denies further complaints. Subjective Subjective Patient is a 38-year-old female who presents to the wound care center today for follow-up of a right lateral leg surgical dehiscence s/p repair of split tear of peroneal brevis tendon, AITFL ligament repair, and syndesmotic repair of the right ankle. She had left dressings in place changing outer dressings as needed. She states she has remained nonweightbearing to the right lower extremity with assistance of knee scooter. She denies constitutional symptoms today. Denies further complaints today. Objective Data Objective Data Vital Signs: Vital Signs Temp Pulse Resp BP O2 Del Method 97.8 F 101 H 16 110/81 H Room Air 06/25/23 10:41 06/25/23 10:41 06/25/23 10:41 06/25/23 10:41 06/25/23 10:41 Oxygen Delivery Method Room Air Physical Exam Const alert, oriented x3, no apparent distress and well nourished General Appearance: cooperative HEENT normocephalic Eyes General Eye: normal appearance of both eyes Neck General: normal visual inspection Lymph Lymphatic: no lymphadenopathy noted and no lymphedema noted Resp normal respiratory effort Cardio regular rate and regular rhythm Extremity normal capillary refill, no joint enlargement, no calf tenderness and no pedal edema Extremity Narrative: DP and PT pulses palpable bilateral. Capillary fill time less than 3 seconds to digits bilateral. Dermatological: There is bilateral lower extremity edema secondary to chronic venous stasis with some hemosiderin deposition noted about the right lower extremity. There is a surgical dehiscence of the proximal incision on the right lower extremity with subsequent ulceration. Ulceration demonstrates mixed fibrogranular layer with some serosanguineous drainage. Surrounding skin does have rubor secondary to chronic venous stasis in addition to autoimmune disease. Ulceration demonstrates no signs of infection. Distal aspect of the incision right lateral leg is a well-healed cicatrix. Anterior lateral leg demonstrates well-healed cicatrix. No signs of infection. Musculoskeletal: Muscle strength 5 of 5 age-appropriate. No pain to palpation about the lateral leg of the right lower extremity. Skin no rashes or lesions noted, skin turgor normal and no jaundice Neuro moves all extremities Debridement Note Debridement Note Wound debrided: Right lateral lower extremity Laterality: Right Wound Grade/Stage: Maciel stage I Type of Debridement: Excisional debridement Anesthesia Used: 5% Lidocaine Gel Depth: Down to and including healthy tissue and in the subcutaneous layer Percentage of wound debrided: 100 Instrument Used: 5mm curette Tissue Removed: Fibrous, devitalized subcutaneous, biofilm, slough Amount of bleeding with debridement: Mild Bleeding Controlled with: Compression and gauze Patient tolerated procedure: Patient tolerated procedure well Post-Debridement Measurements and Additional Note: Post-Debridement Measurements/Treatment - Nurse 1 - General Ulcer Assessment Start: 06/25/23 10:41 Freq: Status: Active Protocol: LAURIE Activity Type Activity Date Activity User E-sign Co-sign Detail Recorded Client Recorded Date Recorded By Document 06/25/23 10:41 KW Desktop 06/25/23 10:47 KW 06/25/23 10:41 - Today's Visit Information Type of service Follow-up Visit (Physician/HABITAT MANAGEMENT COORDINATOR ) Arrival Mode Ambulatory, Other Arrival Mode (Other) knee roller Patient Identification Verified (Name & Yes ) Vital Signs Temperature (97.8 F-99.1 F) 97.8 F Temperature Source Temporal Pulse Rate (60-100) 101 H Pulse Location Monitor Respiratory Rate (12-18) 16 Respiratory rate source Observation Oxygen Delivery Method Room Air Blood Pressure (90/60-120/80) 110/81 H Blood Pressure Mean (mm Hg) 90 Source Monitor Position Semi-Fowlers Blood Pressure Location Left Forearm History Since Last Visit- (Skip if this is Patient's initial visit) Have you changed medications since your No last visit? Any new allergies or adverse reactions No Had a fall/change in ADL's that may No increase risk of falls Signs or symptoms of abuse and/or No neglect since last visit Have you been in the hospital since your No last visit? Has dressing in place as prescribed Yes Has compression in place as prescribed Yes Has offloadiing in place as prescribed Yes Experienced any changes in pain level or No management Left Footwear Regular Shoe Right Footwear Surgical Shoe with pressure relief insole Pain Scale: 0-10 Numeric Is Patient Pain Free? Yes WC - Nurse 1 - General Ulcer Measurement Start: 06/25/23 10:41 Freq: Status: Active Protocol: Activity Type Activity Date Activity User E-sign Co-sign Detail Recorded Client Recorded Date Recorded By Document 06/25/23 10:41 KW Desktop 06/25/23 10:47 KW 06/25/23 10:41 Wound Center Nurse 1 #1 RT LAT ANKLE CLUSTER -Current Size (cm) - Length 1.7 -Current Size (cm) - Width 1.4 -Current Size (cm) - Depth 0.6 -Total Square Cm 2.38 -Exudate Amt Medium -Exudate Type Serosanguineous -Wound Margin Distinct, Outline Attached -Granulation Amt Large (67-100%) -Granulation Quality Red -Necrosis Amt Small (1-33%) -Necrotic Tissue Type Adherent Slough -Texture (Meghan-wound Skin Appearance) Assessed -Moisture (Meghan-wound Skin Appearance) Assessed -Color (Meghan-wound Skin Appearance) Assessed -Temperature (Meghan-wound Skin No Abnormality Appearance) (Pt Warm) -Tenderness on Palpation (Meghan-wound Yes: med ankle Skin Appearance) painful and red -Ulcer Cleansing Soap and Water -Foul Odor after Cleansing No -Anesthetic Used 5% Lidocaine Gel Right Calf (cm) 42.5 Right Ankle (cm) 31.3 Assessment/Plan Assessment/Plan (1) Non-pressure chronic ulcer of right calf with fat layer exposed: CODE(S): L97.212 - Non-pressure chronic ulcer of right calf with fat layer exposed (2) Venous insufficiency (chronic) (peripheral): CODE(S): I87.2 - Venous insufficiency (chronic) (peripheral) (3) Surgical wound dehiscence: CODE(S): T81.31XA - Disruption of external operation (surgical) wound, not elsewhere classified, initial encounter (4) Peroneal tendinitis, right leg: CODE(S): M76.71 - Peroneal tendinitis, right leg (5) Injury of peroneal tendon of right foot: CODE(S): S86.301A - Unspecified injury of muscle(s) and tendon(s) of peroneal muscle group at lower leg level, right leg, initial encounter (6) Rupture of ligament of right ankle: CODE(S): S93.401A - Sprain of unspecified ligament of right ankle, initial encounter (7) Syndesmotic disruption of right ankle: CODE(S): S93.431A - Sprain of tibiofibular ligament of right ankle, initial encounter (8) Pain in right lower leg: CODE(S): M79.661 - Pain in right lower leg PLAN: Plan Patient seen and evaluated She presents today postoperatively s/p primary repair of split tear of peroneal brevis tendon, primary repair of anterior tibiofibular ligament (AITFL), and syndesmotic reduction via tight rope DOS 04/24/2023, POD #62 States pain to her right ankle is continuing to improve. Denies calf pain today. Does admit to some upper leg pain where she did have dehiscence of her surgical incision site of the proximal portion of her lateral leg incision. She reports this did begin to open up on 06/02/2023 following lower extremity swelling secondary to her chronic venous insufficiency. She reports she was having difficulty with the Tubigrip compression which did allow for more leg swelling and opening of her surgical incision site. Dehiscence occurred 2 weeks following the removal of her sutures. Denies calf pain today. She has remained nonweightbearing to the right lower extremity with the assistance of a knee scooter. Dressings were removed today and site was inspected. Anterior lateral ankle demonstrates well-healed cicatrix. Lateral ankle demonstrates well-healed cicatrix distally and proximally surgical dehiscence of wound with underlying ulceration. Ulceration did undergo debridement as noted in the clinical panel above. Ulceration measures 1.7 cm x 1.4 cm x 0.3 cm. Site was dressed with Deidre and dry sterile dressing. She was instructed to change dressing daily. Tubigrip compression stocking applied to the lower extremity. She was also encouraged to transition to protective weightbearing to the right lower extremity in CAM boot and elevate lower extremity at all times of rest for edema control. There is a reduction in size of the ulceration versus previous visit. Patient is currently on immunosuppressant agents for autoimmune disease and Due to some pain about the ulcerative site and medial ankle we will empirically start her on oral antibiotic. Rx Augmentin 875 mg twice daily x 14 days. Stop date 07/09/2023. Discussed adequate protein intake to aid in wound healing. Oscar supplementation recommended. Discussed continuing early range of motion exercises while nonweightbearing. Discussed at this time to begin protected weightbearing in CAM boot to the right lower extremity. She will start out gradually and titrate upward until weightbearing full-time in the CAM boot. Discussed weight bearing in CAM boot for 2-3 weeks with return to shoe gear following this time period. Discussed with her at next visit transitioning to protected weightbearing with surgical shoe/cam boot. Discussed continuing local wound care with plans to apply for EpiFix graft for application at next visit. At this time overall prognosis is good but complicated due to surgical dehiscence at the most proximal incision site secondary to chronic venous insufficiency and lower extremity edema. We will continue local wound care at this time. Discussed signs and symptoms of infection. Discussed with her if she notices increasing redness about the ulcerative site that moves up the leg, purulent drainage from the ulcerative site, increasing foul odor from the ulcerative sit e, or if she develops fever greater than 101 degree, develops nausea, vomiting, chills, these are signs of a progressing infection and she should report to the ED for IV antibiotics. She voices understanding of this today. The following work up and care recommendations were made: Dressing: Deidre dry sterile dressing. Change dressing daily. Wash: Soap and water Tissue growth optimization: Deidre Offload: To transition to protective weightbearing to the right lower extremity CAM boot vs surgical shoe to the right foot. Patient was previously in CAM boot until surgical wound dehiscence. Tra nsition back to surgical shoe to allow for decreased pressure at the wound site on the leg. Vascular: DP and PT pulses palpable with adequate capillary fill time to digits. Edema: Patient does have chronic venous insufficiency with bilateral lower extremity edema. Tubigrip compression is applied. Once wound is closed she will return to her prescription compression stockings. Infection: No signs of infection. Pain: May take [id number] Tylenol for discomfort Host factors: Chronic venous insufficiency, autoimmune disease I answered all the patient's questions. To return to the wound healing center in 1 week or call sooner if the patient has any questions or concerns. Will RTC for continued wound healing and postoperative care s/p primary repair of split tear of peroneal brevis tendon, primary repair of anterior tibiofibular ligament (AITFL), and syndesmotic repair via tight rope right lower extremity.
--- NOTE | 2023-07-09 09:10 | VDLE_ITS ---
Reason For Study: Bilateral leg swelling RIGHT LEFT CFV is compressible, spontaneous, phasic, CFV is compressible, spontaneous, phasic, competent and demonstrates normal competent, and demonstrates normal augmentation. augmentation. FV is compressible, spontaneous, phasic, FV is compressible, spontaneous, phasic, competent and demonstrates normal competent and demonstrates normal augmentation. augmentation. POP V is compressible, spontaneous, phasic, POP V is compressible, spontaneous, phasic, competent and demonstrates normal competent and demonstrates normal augmentation. augmentation. T/P Trunk is compressible. T/P Trunk is compressible. PTV is compressible. PTV is compressible. RT PerV is compressible. LT PerV is compressible. SFJ is competent and measures 0.99 x 1.06 cm. SFJ is competent and measures 1.33 x 1.39 cm. GSV proximal thigh measures 0.86 x 0.88 cm. GSV proximal thigh measures 0.70 x 0.73 cm. GSV at knee measures 0.76 x 0.80 cm. GSV above knee is competent. GSV INCOMPETENT throughout for greater than GSV at knee measures 0.63 x 0.70 cm. 0.5 seconds. GSV below knee is INCOMPETENT for greater ASV at knee is INCOMPETENT for greater than than 0.5 seconds. 0.5 seconds and measures 0.33 x 0.32 cm. ASV proximal calf is INCOMPETENT for greater ASV proximal calf is INCOMPETENT for greater than 0.5 seconds and measures 0.37 x 0.36 cm. than 0.5 seconds and measures 0.55 x 0.51 cm. ASV 2 prox calf is INCOMPETENT for greater ASV mid calf, off of ASV prox calf, is than 0.5 seconds and measures 0.29 x 0.34 cm. INCOMPETENT for greater than 0.5 seconds and wraps anteriorly. measures 0.41 x 0.40 cm. Wraps posteriorly. SSV proximal calf is INCOMPETENT for greater ASV 2 mid calf, off of ASV prox calf is than 0.5 seconds and measures 0.34 x 0.36 cm. INCOMPETENT for greater than 0.5 seconds and measures 0.38 x 0.33 cm. Wraps anteriorly. SSV proximal calf is competent and measures 0.30 x 0.29 cm. Procedure This is a venous duplex using B-mode, color flow and spectral Doppler. Exam performed in department. Patient was scanned in reverse Trendelenburg position during reflux assessment. A preliminary report was called and/or faxed to [facility]. VL/Venous Duplex US - James Extrem Interpretation Summary Deep veins of the lower extremities are bilaterally patent and compressible seg mentally. There is no evidence of deep vein thrombosis on either side. Valvular competence appears in tact within the proximal deep venous systems bilaterally. The great saphenous veins appear bila terally patent and compressible segmentally. Sapheno-femoral junctions are bilaterally competent . Segmental valvular incompetence is noted within the great saphenous veins bilaterally. The right s mall saphenous vein is patent and competent. The left small saphenous vein is patent and incompeten t. Several incompetent accessory saphenous veins, or their tributaries, are noted in the r ight lower extremity. Two accessory saphenous veins in the left calf are incompetent. Ordering Physician: Rick Cummins Referring Physician: Almaz Rosas M.D. Performed By: Freida Valenzuela RVT
[2023-07-09 10:49] VITALS: BP 129/57; PULSE 89; RESP 18; TEMP 36.6
--- NOTE | 2023-07-09 11:38 | PCM.WC.PN ---
History of Present Illness Date of Service: 07/09/23 Chief Complaint: Surgical wound dehiscence right leg History of Wound: Patient is a 38-year-old female who subsequently developed a surgical wound dehiscence of her right lateral lower extremity. She previously underwent surgery for primary repair of split tear of the peroneus brevis tendon, primary repair of anterior tibiofibular ligament (AITFL), and syndesmotic reduction via tight rope of the right lower extremity on 04/24/2023. Following removal of sutures she developed surgical wound dehiscence secondary to continued lower extremity swelling via chronic venous insufficiency. She did undergo debridement in office 06/05/2023 and Deidre was applied at this time with Tubigrip compression. She has worn compression stockings to manage lower extremity swelling prior to surgical intervention. Patient is also noted to have autoimmune disease and is managed by rheumatology with medication and did resume all medications 2 weeks post operative per rheumatology. She was referred to the wound care center for continued wound healing. She has been applying Deidre and dry sterile dressings daily. She denies N/V/F/chills. Denies further complaints. Subjective Subjective Patient is a 38-year-old female who presents to the wound care center today for follow-up of a right lateral leg surgical dehiscence s/p repair of split tear of peroneal brevis tendon, AITFL ligament repair, and syndesmotic repair of the right ankle. She had left dressings in place changing outer dressings as needed. She did report to the ED 07/01/23 for some pain to the medial right ankle and dressings were removed and cultures and x-rays obtained. She was given dose of IV Vanco/Zosyn. She states she has attempted protected weightbearing but still utilizes knee scooter at times. She denies constitutional symptoms today. Denies further complaints today. Objective Data Objective Data Vital Signs: Vital Signs Temp Pulse Resp BP O2 Del Method 97.8 F 89 18 129/57 H Room Air 07/09/23 10:49 07/09/23 10:49 07/09/23 10:49 07/09/23 10:49 07/09/23 10:49 Oxygen Delivery Method Room Air Physical Exam Const alert, oriented x3, no apparent distress and well nourished General Appearance: cooperative HEENT normocephalic Eyes General Eye: normal appearance of both eyes Neck General: normal visual inspection Lymph Lymphatic: no lymphadenopathy noted and no lymphedema noted Resp normal respiratory effort Cardio regular rate and regular rhythm Extremity normal capillary refill, no joint enlargement, no calf tenderness and no pedal edema Extremity Narrative: DP and PT pulses palpable bilateral. Capillary fill time less than 3 seconds to digits bilateral. Dermatological: There is bilateral lower extremity edema secondary to chronic venous stasis with some hemosiderin deposition noted about the right lower extremity. There is a surgical dehiscence of the proximal incision on the right lower extremity with subsequent ulceration. Ulceration demonstrates mixed fibrogranular layer with some serosanguineous drainage. Surrounding skin does have rubor secondary to chronic venous stasis in addition to autoimmune disease. Ulceration demonstrates no signs of infection. Distal aspect of the incision right lateral leg is a well-healed cicatrix. Anterior lateral leg demonstrates well-healed cicatrix. No signs of infection. Medial ankle rubor noted with some tenderness to palpation. Musculoskeletal: Muscle strength 5 of 5 age-appropriate. No pain to palpation about the lateral leg of the right lower extremity. Skin no rashes or lesions noted, skin turgor normal and no jaundice Neuro moves all extremities Debridement Note Debridement Note Wound debrided: Right lateral leg Laterality: Right Wound Grade/Stage: Maciel stage I Type of Debridement: Excisional debridement Anesthesia Used: 5% Lidocaine Gel Depth: Down to and including healthy tissue and in the subcutaneous layer Percentage of wound debrided: 100 Instrument Used: 5mm curette Tissue Removed: Fibrous, devitalized subcutaneous, biofilm, slough Severity: Fat Layer Exposed Amount of bleeding with debridement: Mild Bleeding Controlled with: Compression and gauze Patient tolerated procedure: Patient tolerated procedure well Post-Debridement Measurements and Additional Note: Post-Debridement Measurements/Treatment - Nurse 1 - General Ulcer Assessment Start: 06/25/23 10:41 Freq: Status: Active Protocol: LAURIE Activity Type Activity Date Activity User E-sign Co-sign Detail Recorded Client Recorded Date Recorded By Document 06/25/23 10:41 KW Desktop 06/25/23 10:47 KW Document 07/09/23 10:49 KW Desktop 07/09/23 11:03 KW 06/25/23 07/09/23 10:41 10:49 - Today's Visit Information Type of service Follow-up Visit Follow-up Visit (Physician/NUCLEAR MEDICINE TECH (Physician/NUCLEAR MEDICINE TECH ) ) Arrival Mode Ambulatory, Ambulatory, Other Other Arrival Mode (Other) knee roller knee scooter Patient Identification Verified (Name & Yes Yes ) Vital Signs Temperature (97.8 F-99.1 F) 97.8 F 97.8 F Temperature Source Temporal Temporal Pulse Rate (60-100) 101 H 89 Pulse Location Monitor Monitor Respiratory Rate (12-18) 16 18 Respiratory rate source Observation Observation Oxygen Delivery Method Room Air Room Air Blood Pressure (90/60-120/80) 110/81 H 129/57 H Blood Pressure Mean (mm Hg) 90 81 Source Monitor Monitor Position Semi-Fowlers Sitting Blood Pressure Location Left Forearm Left Forearm History Since Last Visit- (Skip if this is Patient's initial visit) Have you changed medications since your No No last visit? Any new allergies or adverse reactions No No Had a fall/change in ADL's that may No No increase risk of falls Signs or symptoms of abuse and/or No No neglect since last visit Have you been in the hospital since your No No last visit? Has dressing in place as prescribed Yes Yes Has compression in place as prescribed Yes Yes Has offloadiing in place as prescribed Yes Yes Experienced any changes in pain level or No No management Left Footwear Regular Shoe Regular Shoe Right Footwear Surgical Shoe Surgical Shoe with pressure with pressure relief insole relief insole Pain Scale: 0-10 Numeric Is Patient Pain Free? Yes Yes WC - Nurse 1 - General Ulcer Measurement Start: 06/25/23 10:41 Freq: Status: Active Protocol: Activity Type Activity Date Activity User E-sign Co-sign Detail Recorded Client Recorded Date Recorded By Document 06/25/23 10:41 KW Desktop 06/25/23 10:47 KW Document 07/09/23 10:49 KW Desktop 07/09/23 11:03 KW 06/25/23 07/09/23 10:41 10:49 Wound Center Nurse 1 #1 RT LAT ANKLE CLUSTER -Current Size (cm) - Length 1.7 2.3 -Current Size (cm) - Width 1.4 1.2 -Current Size (cm) - Depth 0.6 0.4 -Total Square Cm 2.38 2.76 -Date of Last Picture (Recall this 07/09/23 field) -Photo Taken Yes -Exudate Amt Medium Large -Exudate Type Serosanguineous Serosanguineous -Wound Margin Distinct, Thickened Outline Attached -Granulation Amt Large (67-100%) Medium (34-66%) -Granulation Quality Red Red -Necrosis Amt Small (1-33%) Small (1-33%) -Necrotic Tissue Type Adherent Slough Eschar -Texture (Meghan-wound Skin Appearance) Assessed Localized Edema -Moisture (Meghan-wound Skin Appearance) Assessed Assessed -Color (Meghan-wound Skin Appearance) Assessed Assessed, Erythema -Temperature (Meghan-wound Skin No Abnormality No Abnormality Appearance) (Pt Warm) (Pt Warm) -Tenderness on Palpation (Meghan-wound Yes: med ankle Skin Appearance) painful and red -Ulcer Cleansing Soap and Water Soap and Water -Foul Odor after Cleansing No No -Anesthetic Used 5% Lidocaine 5% Lidocaine Gel Gel Right Calf (cm) 42.5 43 Right Ankle (cm) 31.3 31 WC - Nurse 2 - General Ulcer CM Notes Start: 06/25/23 10:41 Freq: Status: Active Protocol: Activity Type Activity Date Activity User E-sign Co-sign Detail Recorded Client Recorded Date Recorded By Document 06/25/23 12:23 PL [id number] 06/25/23 12:24 PL Document 07/09/23 11:37 PL [id number] 07/09/23 11:38 PL 06/25/23 07/09/23 12:23 11:37 Wound Center Nurse 2 #1 RT LAT ANKLE CLUSTER -Time 10:59 11:08 -Correct Patient Yes Yes -Correct Side, Site, Position Yes Yes -Correct Procedure Yes Yes -Procedure Performed Yes Yes -Type of Procedure Debridement Debridement -Clinical Debridement Subcutaneous Subcutaneous -Tissue Removed Subcutaneous Subcutaneous -Post Debridement (cm) - Length 1.7 2.0 -Post Debridement (cm) - Width 1.4 1.1 -Post Debridement (cm) - Depth 0.3 0.1 -Total Square (Post) (cm) 2.38 2.20 -Area of Debridement (cm) - Length 1.7 2.0 -Area of Debridement (cm) - Width 1.4 1.1 -Total Square (Area) (cm) 2.38 2.20 -Tunneling No No -Undermining/Tunneling No No -Circular Undermining No No -Wound/Ulcer Outcome Not Healed Not Healed -Ulcer Cleansing Rinsed/ Rinsed/ Irrigated with Irrigated with Saline Saline -Foul Odor after Cleansing No No -Bioengineered Tissue No No -Bleeding Controlled with Pressure Pressure -Treatment Response Procedure Procedure Tolerated Well Tolerated Well -Debridement - Subq, 1st 20sq cm Yes Yes Pain Scale: 0-10 Numeric Is Patient Pain Free? Yes Yes - Nurse 3 - General Ulcer D/C NN Start: 06/25/23 10:41 Freq: Status: Active Protocol: Activity Type Activity Date Activity User E-sign Co-sign Detail Recorded Client Recorded Date Recorded By Document 06/25/23 11:10 KW Desktop 06/25/23 11:10 KW Document 07/09/23 11:28 KW Desktop 07/09/23 11:29 KW 06/25/23 07/09/23 11:10 11:28 Wound Care Center Nurse 3 #1 RT LAT ANKLE CLUSTER -Ulcer Cleansing Rinsed/ Irrigated with Saline -Primary Dressing Covered/Secured with Dry Gauze & Dry Gauze & Roll Gauze, Roll Gauze, Secured with Secured with Tape Tape Right -Tubular Bandage Single Layer -Size of Tubigrip Used Size D -Size D ($) 1 Pain Scale: 0-10 Numeric Is Patient Pain Free? Yes Yes WC - Visit Discharge Discharge Condition Stable Stable Ambulatory Status Ambulatory Walker Transportation Private Auto Private Auto Medication Reconcilliation completed & No No provided to patient/care provider Clinical Summary of Care Provided Yes Yes Notes: using knee roller Assessment/Plan Assessment/Plan (1) Non-pressure chronic ulcer of right calf with fat layer exposed: CODE(S): L97.212 - Non-pressure chronic ulcer of right calf with fat layer exposed (2) Venous insufficiency (chronic) (peripheral): CODE(S): I87.2 - Venous insufficiency (chronic) (peripheral) (3) Surgical wound dehiscence: CODE(S): T81.31XA - Disruption of external operation (surgical) wound, not elsewhere classified, initial encounter (4) Peroneal tendinitis, right leg: CODE(S): M76.71 - Peroneal tendinitis, right leg (5) Injury of peroneal tendon of right foot: CODE(S): S86.301A - Unspecified injury of muscle(s) and tendon(s) of peroneal muscle group at lower leg level, right leg, initial encounter (6) Rupture of ligament of right ankle: CODE(S): S93.401A - Sprain of unspecified ligament of right ankle, initial encounter (7) Syndesmotic disruption of right ankle: CODE(S): S93.431A - Sprain of tibiofibular ligament of right ankle, initial encounter (8) Pain in right lower leg: CODE(S): M79.661 - Pain in right lower leg PLAN: Plan Patient seen and evaluated She presents today postoperatively s/p primary repair of split tear of peroneal brevis tendon, primary repair of anterior tibiofibular ligament (AITFL), and syndesmotic reduction via tight rope DOS 04/24/2023, POD #76 States pain to her right ankle is continuing to improve. Denies calf pain today. Does admit to some upper leg pain where she did have dehiscence of her surgical incision site of the proximal portion of her lateral leg incision. She reports this did begin to open up on 06/02/2023 following lower extremity swelling secondary to her chronic venous insufficiency. She reports she was having difficulty with the Tubigrip compression which did allow for more leg swelling and opening of her surgical incision site. Dehiscence occurred 2 weeks following the removal of her sutures. Denies calf pain today. Negative Robertson sign & Negative Ro's sign. Does have some tenderness about wound and medial ankle. She has remained nonweightbearing to the right lower extremity with the assistance of a knee scooter. She has attempted weightbearing in a surgical shoe as she does state the cam boot does rub on the wound site causing some discomfort. States this is going well but does admit to some stiff feeling of the ankle but does expect this following surgery. States it is improving. Dressings were removed today and site was inspected. Anterior lateral ankle demonstrates well-healed cicatrix. Lateral ankle demonstrates well-healed cicatrix distally and proximally surgical dehiscence of wound with underlying ulceration. Ulceration did undergo debridement as noted in the clinical panel above. Ulceration measures 2.0 cm x 1.1 cm x 0.3 cm. Site was dressed with Deidre and dry sterile dressing. She was instructed to change dressing daily. Tubigrip compression stocking applied to the lower extremity. She was also encouraged to transition to protective weightbearing to the right lower extremity in CAM boot and elevate lower extremity at all times of rest for edema control. There is a reduction in size of the ulceration versus previous visit. Patient is currently on immunosuppressant agents for autoimmune disease and Due to some pain about the ulcerative site and medial ankle we will empirically start her on oral antibiotic. Rx Augmentin 875 mg twice daily x 14 days. Stop date 07/09/2023. She did go to ED for some medial ankle pain on 07/01/2023 they did give dose of IV Vanco/Zosyn. Discussed finishing this antibiotic and due to recent cultures from ED visit on 07/01/23 demonstrating +1 Staph aureus. Discussed new antibiotic to be started, doxycycline 100 mg twice daily x 4 weeks (stop date 07/30/23) due to her autoimmune disease and taking suppressive agents her antibiotic course will be extended to allow for resolution and clearance. Discussed adequate protein intake to aid in wound healing. Oscar supplementation recommended. Discussed continuing early range of motion exercises while nonweightbearing. Discussed at this time to continue protected weightbearing in CAM boot/surgical shoe to the right lower extremity. Discussed weight bearing in CAM boot/surigical shoe for 2 weeks with return to shoe gear following this time period. Discussed once wound has healed we will begin physical therapy to increase strength and flexibility of the right lower extremity. Discussed continuing local wound care with plans to apply for EpiFix graft for application at next visit. At this time overall prognosis is good but complicated due to surgical dehiscence at the most proximal incision site secondary to chronic venous insufficiency and lower extremity edema. We will continue local wound care at this time. Venous studies were performed today, 07/09/2023, awaiting results. Discussed signs and symptoms of infection. Discussed with her if she notices increasing redness about the ulcerative site that moves up the leg, purulent drainage from the ulcerative site, increasing foul odor from the ulcerative site, or if she develops fever greater than 101 degree, develops nausea, vomiting, chills, these are signs of a progressing infection and she should report to the ED for IV antibiotics. She voices understanding of this today. The following work up and care recommendations were made: Dressing: Deidre dry sterile dressing. Change dressing daily. Wash: Soap and water Tissue growth optimization: Deidre Offload: To transition to protective weightbearing to the right lower extremity CAM boot vs surgical shoe to the right foot. Patient was previously in CAM boot until surgical wound dehiscence. Transition back to surgical shoe to allow for decreased pressure at the wound site on the leg. Vascular: DP and PT pulses palpable with adequate capillary fill time to digits. Edema: Patient does have chronic venous insufficiency with bilateral lower extremity edema. Tubigrip compression is applied. Once wound is closed she will return to her prescription compression stockings. Infection: No signs of infection. Pain: May take [id number] Tylenol for discomfort Host factors: Chronic venous insufficiency, autoimmune disease I answered all the patient's questions. To return to the wound healing center in 1 week or call sooner if the patient has any questions or concerns. Will RTC for continued wound healing and postoperative care s/p primary repair of split tear of peroneal brevis tendon, primary repair of anterior tibiofibular ligament (AITFL), and syndesmotic repair via tight rope right lower extremity.
[2023-07-16 11:02] VITALS: BP 130/88; PULSE 79; RESP 18; TEMP 36.3
--- NOTE | 2023-07-16 12:47 | PCM.WC.PN ---
History of Present Illness Date of Service: 07/16/23 Chief Complaint: Surgical wound dehiscence right leg History of Wound: Patient is a 38-year-old female who subsequently developed a surgical wound dehiscence of her right lateral lower extremity. She previously underwent surgery for primary repair of split tear of the peroneus brevis tendon, primary repair of anterior tibiofibular ligament (AITFL), and syndesmotic reduction via tight rope of the right lower extremity on 04/24/2023. Following removal of sutures she developed surgical wound dehiscence secondary to continued lower extremity swelling via chronic venous insufficiency. She did undergo debridement in office 06/05/2023 and Deidre was applied at this time with Tubigrip compression. She has worn compression stockings to manage lower extremity swelling prior to surgical intervention. Patient is also noted to have autoimmune disease and is managed by rheumatology with medication and did resume all medications 2 weeks post operative per rheumatology. She was referred to the wound care center for continued wound healing. She has been applying Deidre and dry sterile dressings daily. She denies N/V/F/chills. Denies further complaints. Subjective Subjective Patient is a 38-year-old female who presents to the wound care center today for follow-up of a right lateral leg surgical dehiscence s/p repair of split tear of peroneal brevis tendon, AITFL ligament repair, and syndesmotic repair of the right ankle. She had left dressings in place changing outer dressings as needed. She is taking oral antibiotic as instructed. She reports she is walking more with the surgical shoe but is assisted by knee scooter today. She denies constitutional symptoms today. Denies further complaints today. Objective Data Objective Data Vital Signs: Vital Signs Temp Pulse Resp BP O2 Del Method 97.3 F L 79 18 130/88 H Room Air 07/16/23 11:02 07/16/23 11:02 07/16/23 11:02 07/16/23 11:02 07/16/23 11:02 Oxygen Delivery Method Room Air Physical Exam Const alert, oriented x3, no apparent distress and well nourished General Appearance: cooperative HEENT normocephalic Eyes General Eye: normal appearance of both eyes Neck General: normal visual inspection Lymph Lymphatic: no lymphadenopathy noted and no lymphedema noted Resp normal respiratory effort Cardio regular rate and regular rhythm Extremity normal capillary refill, no joint enlargement, no calf tenderness and no pedal edema Extremity Narrative: DP and PT pulses palpable bilateral. Capillary fill time less than 3 seconds to digits bilateral. Dermatological: There is bilateral lower extremity edema secondary to chronic venous stasis with some hemosiderin deposition noted about the right lower extremity. There is a surgical dehiscence of the proximal incision on the right lower extremity with subsequent ulceration. Ulceration demonstrates mixed fibrogranular layer with some serosanguineous drainage. Surrounding skin does have rubor secondary to chronic venous stasis in addition to autoimmune disease. Ulceration demonstrates no signs of infection. Distal aspect of the incision right lateral leg is a well-healed cicatrix. Anterior lateral leg demonstrates well-healed cicatrix. No signs of infection. Medial ankle rubor noted with some tenderness to palpation. Musculoskeletal: Muscle strength 5 of 5 age-appropriate. No pain to palpation about the lateral leg of the right lower extremity. Skin no rashes or lesions noted, skin turgor normal and no jaundice Neuro moves all extremities Debridement Note Debridement Note Wound debrided: Right lateral leg Laterality: Right Wound Grade/Stage: Maciel stage I Type of Debridement: Excisional debridement Anesthesia Used: 5% Lidocaine Gel Depth: Down to and including healthy tissue and in the subcutaneous layer Percentage of wound debrided: 100 Instrument Used: 5mm curette Tissue Removed: Fibrous, devitalized subcutaneous, biofilm, slough Severity: Fat Layer Exposed Amount of bleeding with debridement: Mild Bleeding Controlled with: Compression and gauze Patient tolerated procedure: Patient tolerated procedure well Post-Debridement Measurements and Additional Note: Post-Debridement Measurements/Treatment - Nurse 1 - General Ulcer Assessment Start: 06/25/23 10:41 Freq: Status: Active Protocol: LAURIE Activity Type Activity Date Activity User E-sign Co-sign Detail Recorded Client Recorded Date Recorded By Document 06/25/23 10:41 KW Desktop 06/25/23 10:47 KW Document 07/09/23 10:49 KW Desktop 07/09/23 11:03 KW Document 07/16/23 11:02 MW Desktop 07/16/23 11:11 MW 06/25/23 07/09/23 07/16/23 10:41 10:49 11:02 - Today's Visit Information Type of service Follow-up Visit Follow-up Visit Follow-up Visit (Physician/THEATER MANAGER (Physician/THEATER MANAGER (Physician/THEATER MANAGER ) ) ) Arrival Mode Ambulatory, Ambulatory, Ambulatory, Other Other Walker Arrival Mode (Other) knee roller knee scooter Transfer Assistance None Accompanied by self Patient Identification Verified (Name & Yes Yes Yes ) Patient Requires Transmission-Based No Precautions Safety Precautions NA Vital Signs Temperature (97.8 F-99.1 F) 97.8 F 97.8 F 97.3 F L Temperature Source Temporal Temporal Temporal Pulse Rate (60-100) 101 H 89 79 Pulse Location Monitor Monitor Monitor Respiratory Rate (12-18) 16 18 18 Respiratory rate source Observation Observation Observation Oxygen Delivery Method Room Air Room Air Room Air Blood Pressure (90/60-120/80) 110/81 H 129/57 H 130/88 H Blood Pressure Mean (mm Hg) 90 81 102 Source Monitor Monitor Monitor Position Semi-Fowlers Sitting Sitting Blood Pressure Location Left Forearm Left Forearm Left Arm History Since Last Visit- (Skip if this is Patient's initial visit) Have you changed medications since your No No No last visit? Any new allergies or adverse reactions No No No Had a fall/change in ADL's that may No No No increase risk of falls Signs or symptoms of abuse and/or No No No neglect since last visit Have you been in the hospital since your No No No last visit? Has dressing in place as prescribed Yes Yes Yes Has compression in place as prescribed Yes Yes Yes Has offloadiing in place as prescribed Yes Yes Yes Experienced any changes in pain level or No No No management Left Footwear Regular Shoe Regular Shoe Surgical Shoe with pressure relief insole Right Footwear Surgical Shoe Surgical Shoe Regular Shoe with pressure with pressure relief insole relief insole Pain Scale: 0-10 Numeric Is Patient Pain Free? Yes Yes Yes WC - Nurse 1 - General Ulcer Measurement Start: 06/25/23 10:41 Freq: Status: Active Protocol: Activity Type Activity Date Activity User E-sign Co-sign Detail Recorded Client Recorded Date Recorded By Document 06/25/23 10:41 KW Desktop 06/25/23 10:47 KW Document 07/09/23 10:49 KW Desktop 07/09/23 11:03 KW Document 07/16/23 11:02 MW Desktop 07/16/23 11:11 MW 06/25/23 07/09/23 07/16/23 10:41 10:49 11:02 Wound Center Nurse 1 #1 RT LAT ANKLE CLUSTER -Combined with other wound No -Current Size (cm) - Length 1.7 2.3 2.2 -Current Size (cm) - Width 1.4 1.2 0.9 -Current Size (cm) - Depth 0.6 0.4 0.1 -Total Square Cm 2.38 2.76 1.98 -Date of Last Picture (Recall this 07/09/23 07/16/23 field) -Photo Taken Yes Yes -Epithelialization Small 1-33% -Tunneling No -Undermining/Tunneling No -Circular Undermining No -Exudate Amt Medium Large Small -Exudate Type Serosanguineous Serosanguineous Serosanguineous -Wound Margin Distinct, Thickened Flat & Intact Outline Attached -Granulation Amt Large (67-100%) Medium (34-66%) Medium (34-66%) -Granulation Quality Red Red [place] -Slough/Fibrin Yes -Necrosis Amt Small (1-33%) Small (1-33%) Small (1-33%) -Necrotic Tissue Type Adherent Slough Eschar Adherent Slough -Structure Exposed N/A -Texture (Meghan-wound Skin Appearance) Assessed Localized Edema Assessed, Localized Edema ,Scarring -Moisture (Meghan-wound Skin Appearance) Assessed Assessed Assessed,Dry/ Scaly -Color (Meghan-wound Skin Appearance) Assessed Assessed, No Abnormality, Erythema Assessed -Temperature (Meghan-wound Skin No Abnormality No Abnormality No Abnormality Appearance) (Pt Warm) (Pt Warm) (Pt Warm) -Tenderness on Palpation (Meghan-wound Yes: med ankle No Skin Appearance) painful and red -Ulcer Cleansing Soap and Water Soap and Water Soap and Water -Foul Odor after Cleansing No No No -Anesthetic Used 5% Lidocaine 5% Lidocaine 5% Lidocaine Gel Gel Gel Lower Limb Edema Present Yes Right Calf (cm) 42.5 43 42.0 Right Ankle (cm) 31.3 31 28.5 WC - Nurse 2 - General Ulcer CM Notes Start: 06/25/23 10:41 Freq: Status: Active Protocol: Activity Type Activity Date Activity User E-sign Co-sign Detail Recorded Client Recorded Date Recorded By Document 06/25/23 12:23 PL [id number] 06/25/23 12:24 PL Document 07/09/23 11:37 PL [id number] 07/09/23 11:38 PL Document 07/16/23 12:04 PL [id number] 07/16/23 12:06 PL 06/25/23 07/09/23 07/16/23 12:23 11:37 12:04 Wound Center Nurse 2 #1 RT LAT ANKLE CLUSTER -Time 10:59 11:08 11:39 -Correct Patient Yes Yes Yes -Correct Side, Site, Position Yes Yes Yes -Correct Procedure Yes Yes Yes -Procedure Performed Yes Yes Yes -Type of Procedure Debridement Debridement Debridement -Clinical Debridement Subcutaneous Subcutaneous Subcutaneous -Tissue Removed Subcutaneous Subcutaneous Subcutaneous -Post Debridement (cm) - Length 1.7 2.0 2.1 -Post Debridement (cm) - Width 1.4 1.1 0.8 -Post Debridement (cm) - Depth 0.3 0.1 0.2 -Total Square (Post) (cm) 2.38 2.20 1.68 -Area of Debridement (cm) - Length 1.7 2.0 2.1 -Area of Debridement (cm) - Width 1.4 1.1 0.8 -Total Square (Area) (cm) 2.38 2.20 1.68 -Tunneling No No No -Undermining/Tunneling No No No -Circular Undermining No No No -Wound/Ulcer Outcome Not Healed Not Healed Not Healed -Ulcer Cleansing Rinsed/ Rinsed/ Rinsed/ Irrigated with Irrigated with Irrigated with Saline Saline Saline -Foul Odor after Cleansing No No No -Bioengineered Tissue No No Yes -Expiration Date 07/27/24 -Product Lot Number [id number] Matrion -Percent Used 100 -Bleeding Controlled with Pressure Pressure Pressure -Treatment Response Procedure Procedure Procedure Tolerated Well Tolerated Well Tolerated Well -Debridement - Subq, 1st 20sq cm Yes Yes Yes Pain Scale: 0-10 Numeric Is Patient Pain Free? Yes Yes Yes WC - Nurse 3 - General Ulcer D/C NN Start: 06/25/23 10:41 Freq: Status: Active Protocol: Activity Type Activity Date Activity User E-sign Co-sign Detail Recorded Client Recorded Date Recorded By Document 06/25/23 11:10 KW Desktop 06/25/23 11:10 KW Document 07/09/23 11:28 KW Desktop 07/09/23 11:29 KW Document 07/16/23 11:56 KW Desktop 07/16/23 11:57 KW 06/25/23 07/09/23 07/16/23 11:10 11:28 11:56 Wound Care Center Nurse 3 #1 RT LAT ANKLE CLUSTER -Ulcer Cleansing Rinsed/ Irrigated with Saline -Primary Dressing Covered/Secured with Dry Gauze & Dry Gauze & Dry Gauze & Roll Gauze, Roll Gauze, Roll Gauze, Secured with Secured with Secured with Tape Tape Tape Right -Compression Wrap Paddy Wrap -Tubular Bandage Single Layer Single Layer -Size of Tubigrip Used Size D Size E -Size D ($) 1 -Size E ($) 1 Pain Scale: 0-10 Numeric Is Patient Pain Free? Yes Yes Yes WC - Visit Discharge Discharge Condition Stable Stable Stable Ambulatory Status Ambulatory Walker Ambulatory, Walker Transportation Private Auto Private Auto Medication Reconcilliation completed & No No No provided to patient/care provider Clinical Summary of Care Provided Yes Yes Yes Notes: using knee knee roller roller Assessment/Plan Assessment/Plan (1) Non-pressure chronic ulcer of right calf with fat layer exposed: CODE(S): L97.212 - Non-pressure chronic ulcer of right calf with fat layer exposed (2) Venous insufficiency (chronic) (peripheral): CODE(S): I87.2 - Venous insufficiency (chronic) (peripheral) (3) Surgical wound dehiscence: CODE(S): T81.31XA - Disruption of external operation (surgical) wound, not elsewhere classified, initial encounter (4) Peroneal tendinitis, right leg: CODE(S): M76.71 - Peroneal tendinitis, right leg (5) Injury of peroneal tendon of right foot: CODE(S): S86.301A - Unspecified injury of muscle(s) and tendon(s) of peroneal muscle group at lower leg level, right leg, initial encounter (6) Rupture of ligament of right ankle: CODE(S): S93.401A - Sprain of unspecified ligament of right ankle, initial encounter (7) Syndesmotic disruption of right ankle: CODE(S): S93.431A - Sprain of tibiofibular ligament of right ankle, initial encounter (8) Pain in right lower leg: CODE(S): M79.661 - Pain in right lower leg PLAN: Plan Patient seen and evaluated She presents today postoperatively s/p primary repair of split tear of peroneal brevis tendon, primary repair of anterior tibiofibular ligament (AITFL), and syndesmotic reduction via tight rope DOS 04/24/2023, POD #83 States pain to her right ankle is continuing to improve. Denies calf pain today. Does admit to some upper leg pain where she did have dehiscence of her surgical incision site of the proximal portion of her lateral leg incision. She reports this did begin to open up on 06/02/2023 following lower extremity swelling secondary to her chronic venous insufficiency. She reports she was having difficulty with the Tubigrip compression which did allow for more leg swelling and opening of her surgical incision site. Dehiscence occurred 2 weeks following the removal of her sutures. Denies calf pain today. Negative Robertson sign & Negative Ro's sign. Does have some tenderness about wound site on lateral leg and tenderness to the medial ankle. She has remained nonweightbearing to the right lower extremity with the assistance of a knee scooter. She has attempted continued weightbearing in a surgical shoe as she does state the cam boot does rub on the wound site causing some discomfort. States this is going well but does admit to some stiff feeling of the ankle but does expect this following surgery. States it is improving. Dressings were removed today and site was inspected. Anterior lateral ankle demonstrates well-healed cicatrix. Lateral ankle demonstrates well-healed cicatrix distally and proximally surgical dehiscence of wound with underlying ulceration. Ulceration did undergo debridement as noted in the clinical panel above. Ulceration measures 2.1 cm x 0.8 cm x 0.2 cm. Donated amnionic graft was applied to wound bed today. Site was dressed with Adaptic touch and anchored with Steri-Strips. Instructed to change outer dressings as needed and to not get the site wet. Tubigrip compression stocking applied to the lower extremity. She was also encouraged to transition to full weightbearing to the right lower extremity in supportive shoe gear and elevate lower extremity at all times of rest for edema control. There is a reduction in size of the ulceration versus previous visit. Patient is currently on immunosuppressant agents for autoimmune disease and Due to some pain about the ulcerative site and medial ankle we will empirically start her on oral antibiotic. Rx Augmentin 875 mg twice daily x 14 days. Stop date 07/09/2023. She did go to ED for some medial ankle pain on 07/01/2023 they did give dose of IV Vanco/Zosyn. Discussed finishing this antibiotic and due to recent cultures from ED visit on 07/01/23 demonstrating +1 Staph aureus. Discussed new antibiotic to be started, doxycycline 100 mg twice daily x 4 weeks (stop date 07/30/23) due to her autoimmune disease and taking suppressive agents her antibiotic course will be extended to allow for resolution and clearance. She does admit to some occasional nausea with the antibiotic and thus she will be started on Zofran 4mg tablets as needed. She does admit to taking some Zofran for her nausea following treatments for autoimmune disease. Discussed adequate protein intake to aid in wound healing. Oscar supplementation recommended. Discussed continuing early range of motion exercises while nonweightbearing. Discussed as wound nears closure physical therapy will be implemented to improve strength and motion to the right lower extremity. Discussed at this time to transition to supportive shoe gear to the right lower extremity. Discussed weight bearing in supportive shoe gear today. Discussed once wound has healed we will begin physical therapy to increase strength and flexibility of the right lower extremity. Discussed continuing local wound care with plans to apply for EpiFix graft for application at next visit. At this time overall prognosis is good but complicated due to surgical dehiscence at the most proximal incision site secondary to chronic venous insufficiency and lower extremity edema. We will continue local wound care at this time. Venous studies were performed 07/09/2023, no evidence of DVT. Valvular competence appears intact within the proximal deep venous system bilaterally. Great saphenous vein appears bilaterally patent and compressible segmentally. Saphenofemoral junctions are bilaterally competent. There is segmental valvular incompetence noted in the great saphenous veins bilaterally small saphenous veins patent and competent on the right and patent and incompetent on the left. There are several incompetent accessory saphenous veins and tributaries in the right lower extremity and 2 accessory saphenous veins of the left calf are incompetent. Discussed signs and symptoms of infection. Discussed with her if she notices increasing redness about the ulcerative site that moves up the leg, purulent drainage from the ulcerative site, increasing foul odor from the ulcerative site, or if she develops fever greater than 101 degree, develops nausea, vomiting, chills, these are signs of a progressing infection and she should report to the ED for IV antibiotics. She voices understanding of this today. The following work up and care recommendations were made: Dressing: Donated amnionic graft, Adaptic touch, Steri-Strips. Dry sterile dressing. May change outer dressings as needed Wash: Do not get site wet Tissue growth optimization: Donated amnionic graft Offload: To transition to full weightbearing to the right lower extremity in supportive shoe gear. foot. Patient was previously in CAM boot until surgical wound dehiscence. Transitioned back to surgical shoe to allow for decreased pressure at the wound site on the leg. Vascular: DP and PT pulses palpable with adequate capillary fill time to digits. Edema: Patient does have chronic venous insufficiency with bilateral lower extremity edema. Tubigrip compression is applied. Once wound is closed she will return to her prescription compression stockings. Infection: No signs of infection. Pain: May take [id number] Tylenol for discomfort Host factors: Chronic venous insufficiency, autoimmune disease I answered all the patient's questions. To return to the wound healing center in 1 week or call sooner if the patient has any questions or concerns. Will RTC for continued wound healing and postoperative care s/p primary repair of split tear of peroneal brevis tendon, primary repair of anterior tibiofibular ligament (AITFL), and syndesmotic repair via tight rope right lower extremity.
== END 2023-07-22 23:59 | disposition home or self-care (01) ==
LOC: WC 11:00
PROVIDERS: PCP Internal Medicine; Referring Provider Student in an Organized Health Care Education/Training Program; Visit Provider Student in an Organized Health Care Education/Training Program
DX: T81.31XA Disruption of external operation (surgical) wound, not elsewhere classified, initial encounter (principal); L97.212 Non-pressure chronic ulcer of right calf with fat layer exposed; I87.2 Venous insufficiency (chronic) (peripheral); M79.661 Pain in right lower leg; R60.0 Localized edema; Z79.82 Long term (current) use of aspirin; Z79.899 Other long term (current) drug therapy
CPT/HCPCS: 11042; 93970

== ENCOUNTER 2023-08-20 11:00 | Outpatient (RCR) | payer MEDICARE, MEDICAID, SELFPAY ==
[2023-07-23 00:21] VITALS: BP 130/88; PULSE 79; RESP 18; TEMP 36.3
[2023-07-23 09:47] VITALS: BP 143/92; PULSE 103; RESP 18; TEMP 36.6
--- NOTE | 2023-07-23 12:40 | PN.PCM_ITS ---
History of Present Illness Date of Service: 07/23/23 Chief Complaint: Surgical wound dehiscence right leg History of Wound: Patient is a 38-year-old female who subsequently developed a surgical wound dehiscence of her right lateral lower extremity. She previously underwent surgery for primary repair of split tear of the peroneus brevis tendon, primary repair of anterior tibiofibular ligament (AITFL), and syndesmotic reduction via tight rope of the right lower extremity on 04/24/2023. Following removal of sutures she developed surgical wound dehiscence secondary to continued lower extremity swelling via chronic venous insufficiency. She did undergo debridement in office 06/05/2023 and Deidre was applied at this time with Tubigrip compression. She has worn compression stockings to manage lower extremity swelling prior to surgical intervention. Patient is also noted to have autoimmune disease and is managed by rheumatology with medication and did resume all medications 2 weeks post operative per rheumatology. She was referred to the wound care center for continued wound healing. She has been applying Deidre and dry sterile dressings daily. She denies N/V/F/chills. Denies further complaints. Subjective Subjective Patient is a 38-year-old female who presents to the wound care center today for follow-up of a right lateral leg surgical dehiscence s/p repair of split tear of peroneal brevis tendon, AITFL ligament repair, and syndesmotic repair of the right ankle. She had left dressings in place changing outer dressings as needed. She is taking oral antibiotic as instructed. She reports she is continuing to walk more with the surgical shoe but is assisted by knee scooter today. She denies constitutional symptoms today. Denies further complaints today. Objective Data Objective Data Vital Signs: Vital Signs Temp Pulse Resp BP O2 Del Method 97.8 F 103 H 18 143/92 H Room Air 07/23/23 09:47 07/23/23 09:47 07/23/23 09:47 07/23/23 09:47 07/23/23 09:47 Oxygen Delivery Method Room Air Physical Exam Const alert, oriented x3, no apparent distress and well nourished General Appearance: cooperative HEENT normocephalic Eyes General Eye: normal appearance of both eyes Neck General: normal visual inspection Lymph Lymphatic: no lymphadenopathy noted and no lymphedema noted Resp normal respiratory effort Cardio regular rate and regular rhythm Extremity normal capillary refill, no joint enlargement, no calf tenderness and no pedal edema Extremity Narrative: DP and PT pulses palpable bilateral. Capillary fill time less than 3 seconds to digits bilateral. Dermatological: There is bilateral lower extremity edema secondary to chronic venous stasis with some hemosiderin deposition noted about the right lower extremity. There is a surgical dehiscence of the proximal incision on the right lower extremity with subsequent ulceration. Ulceration demonstrates mixed fibrogranular layer with some serosanguineous drainage. Surrounding skin does have rubor secondary to chronic venous stasis in addition to autoimmune disease. Ulceration demonstrates no signs of infection. Distal aspect of the incision right lateral leg is a well-healed cicatrix. Anterior lateral leg demonstrates well-healed cicatrix. No signs of infection. Medial ankle rubor noted with some tenderness to palpation. Musculoskeletal: Muscle strength 5 of 5 age-appropriate. No pain to palpation about the lateral leg of the right lower extremity. Skin no rashes or lesions noted, skin turgor normal and no jaundice Neuro moves all extremities Debridement Note Debridement Note Wound debrided: Right lateral leg Laterality: Right Wound Grade/Stage: Maciel stage I Type of Debridement: Excisional debridement Anesthesia Used: 5% Lidocaine Gel Depth: Down to and including healthy tissue and in the subcutaneous layer Percentage of wound debrided: 100 Instrument Used: 5mm curette Tissue Removed: Fibrous, devitalized subcutaneous, biofilm, slough Severity: Fat Layer Exposed Amount of bleeding with debridement: Mild Bleeding Controlled with: Compression and gauze Patient tolerated procedure: Patient tolerated procedure well Post-Debridement Measurements and Additional Note: Post-Debridement Measurements/Treatment - Nurse 1 - General Ulcer Assessment Start: 07/23/23 09:46 Freq: Status: Active Protocol: LAURIE Activity Type Activity Date Activity User E-sign Co-sign Detail Recorded Client Recorded Date Recorded By Document 07/23/23 09:47 KW Desktop 07/23/23 10:02 KW 07/23/23 09:47 - Today's Visit Information Type of service Follow-up Visit (Physician/SOLAR PANEL INSTALLER ) Arrival Mode Ambulatory, Other Arrival Mode (Other) KNEE SCOOTER Patient Identification Verified (Name & Yes ) Vital Signs Temperature (97.8 F-99.1 F) 97.8 F Temperature Source Temporal Pulse Rate (60-100) 103 H Pulse Location Monitor Respiratory Rate (12-18) 18 Respiratory rate source Observation Oxygen Delivery Method Room Air Blood Pressure (90/60-120/80) 143/92 H Blood Pressure Mean (mm Hg) 109 Source Monitor Position Semi-Fowlers Blood Pressure Location Right Forearm History Since Last Visit- (Skip if this is Patient's initial visit) Have you changed medications since your No last visit? Any new allergies or adverse reactions No Had a fall/change in ADL's that may No increase risk of falls Signs or symptoms of abuse and/or No neglect since last visit Have you been in the hospital since your No last visit? Has dressing in place as prescribed Yes Has compression in place as prescribed Yes Has offloadiing in place as prescribed Yes Experienced any changes in pain level or No management Left Footwear Regular Shoe Right Footwear Surgical Shoe with pressure relief insole Pain Scale: 0-10 Numeric Is Patient Pain Free? Yes WC - Nurse 1 - General Ulcer Measurement Start: 07/23/23 09:46 Freq: Status: Active Protocol: Activity Type Activity Date Activity User E-sign Co-sign Detail Recorded Client Recorded Date Recorded By Document 07/23/23 09:47 KW Desktop 07/23/23 10:02 KW 07/23/23 09:47 Wound Center Nurse 1 #1 RT LAT ANKLE CLUSTER -Current Size (cm) - Length 1.5 -Current Size (cm) - Width 0.6 -Current Size (cm) - Depth 0.3 -Total Square Cm 0.90 -Date of Last Picture (Recall this 07/23/23 field) -Photo Taken Yes -Exudate Amt Small -Exudate Type Serosanguineous -Wound Margin Distinct, Outline Attached -Granulation Amt Small (1-33%) -Granulation Quality Red -Necrosis Amt Large (67-100%) -Necrotic Tissue Type Adherent Slough -Texture (Meghan-wound Skin Appearance) Assessed, Localized Edema -Moisture (Meghan-wound Skin Appearance) Assessed -Color (Meghan-wound Skin Appearance) Assessed, Erythema -Temperature (Meghan-wound Skin No Abnormality Appearance) (Pt Warm) -Ulcer Cleansing Soap and Water -Anesthetic Used 5% Lidocaine Gel Right Calf (cm) 42 Right Ankle (cm) 31.5 WC - Nurse 2 - General Ulcer CM Notes Start: 07/23/23 09:46 Freq: Status: Active Protocol: Activity Type Activity Date Activity User E-sign Co-sign Detail Recorded Client Recorded Date Recorded By Document 07/23/23 11:14 PL [id number] 07/23/23 11:16 PL 07/23/23 11:14 Wound Center Nurse 2 #1 RT LAT ANKLE CLUSTER -Time 10:10 -Correct Patient Yes -Correct Side, Site, Position Yes -Correct Procedure Yes -Procedure Performed Yes -Type of Procedure Debridement -Clinical Debridement Subcutaneous -Tissue Removed Subcutaneous -Post Debridement (cm) - Length 1.5 -Post Debridement (cm) - Width 0.3 -Post Debridement (cm) - Depth 0.1 -Total Square (Post) (cm) 0.45 -Area of Debridement (cm) - Length 1.5 -Area of Debridement (cm) - Width 0.3 -Total Square (Area) (cm) 0.45 -Tunneling No -Undermining/Tunneling No -Circular Undermining No -Wound/Ulcer Outcome Not Healed -Ulcer Cleansing Rinsed/ Irrigated with Saline -Foul Odor after Cleansing No -Bioengineered Tissue Yes -Expiration Date 07/28/24 -Product Lot Number [id number] Matrion -Percent Used 100 -Bleeding Controlled with Pressure -Treatment Response Procedure Tolerated Well -Debridement - Subq, 1st 20sq cm Yes Pain Scale: 0-10 Numeric Is Patient Pain Free? Yes - Nurse 3 - General Ulcer D/C NN Start: 07/23/23 09:46 Freq: Status: Active Protocol: Activity Type Activity Date Activity User E-sign Co-sign Detail Recorded Client Recorded Date Recorded By Document 07/23/23 10:22 KW Desktop 07/23/23 10:22 KW 07/23/23 10:22 Wound Care Center Nurse 3 #1 RT LAT ANKLE CLUSTER -Primary Dressing Covered/Secured with Dry Gauze & Roll Gauze, Secured with Tape Right -Tubular Bandage Single Layer -Size of Tubigrip Used Size E -Size E ($) 1 Pain Scale: 0-10 Numeric Is Patient Pain Free? 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 (2) Venous insufficiency (chronic) (peripheral): CODE(S): I87.2 - Venous insufficiency (chronic) (peripheral) (3) Surgical wound dehiscence: CODE(S): T81.31XA - Disruption of external operation (surgical) wound, not elsewhere classified, initial encounter (4) Peroneal tendinitis, right leg: CODE(S): M76.71 - Peroneal tendinitis, right leg (5) Injury of peroneal tendon of right foot: CODE(S): S86.301A - Unspecified injury of muscle(s) and tendon(s) of peroneal muscle group at lower leg level, right leg, initial encounter (6) Rupture of ligament of right ankle: CODE(S): S93.401A - Sprain of unspecified ligament of right ankle, initial encounter (7) Syndesmotic disruption of right ankle: CODE(S): S93.431A - Sprain of tibiofibular ligament of right ankle, initial encounter (8) Pain in right lower leg: CODE(S): M79.661 - Pain in right lower leg PLAN: Plan Patient seen and evaluated She presents today postoperatively s/p primary repair of split tear of peroneal brevis tendon, primary repair of anterior tibiofibular ligament (AITFL), and syndesmotic reduction via tight rope DOS 04/24/2023, POD #90 States pain to her right ankle is continuing to improve she is continuing weight bearing to the Right foot. Denies calf pain today. Does admit to some upper leg pain where she did have dehiscence of her surgical incision site of the proximal portion of her lateral leg incision, but this is continuing to improve. She reports this did begin to open up on 06/02/2023 following lower extremity swelling secondary to her chronic venous insufficiency. She reports she was having difficulty with the Tubigrip compression which did allow for more leg swelling and opening of her surgical incision site. Dehiscence occurred 2 weeks following the removal of her sutures. Denies calf pain today. Negative Robertson sign & Negative Ro's sign. Does have some tenderness about wound site on lateral leg and tenderness to the medial ankle, but improving. She has remained protective weightbearing to the right lower extremity with surgical shoe. Does admit to utilizing the assistance of a knee scooter at times. She has continued weightbearing in a surgical shoe as she does state the CAM boot does rub on the wound site causing some discomfort. States this is going well but does admit to some stiff feeling of the ankle but does expect this following surgery. States it is improving. Discussed transition to supportive shoe gear again today. Encouraged continued ambulation in supportive shoe gear vs surgical shoe Dressings were removed today and site was inspected. Anterior lateral ankle demonstrates well-healed cicatrix. Lateral ankle demonstrates well-healed cicatrix distally and proximally surgical dehiscence of wound with underlying ulceration. Ulceration did undergo debridement as noted in the clinical panel above. Ulceration measures 1.5 cm x 0.3 cm x 0.2 cm. Donated amnionic graft was applied to wound bed today. Site was dressed with Adaptic touch and anchored with Steri-Strips. Instructed to change outer dressings as needed and to not ge t the site wet. Tubigrip compression stocking applied to the lower extremity. She was also encouraged to transition to full weightbearing to the right lower extremity in supportive shoe gear and elevate lower extremity at all times of rest for edema control. There is a reduction in size of the ulceration versus previous visit. Overall is healing well. She is discussing with Rheumatology and Eyewear Manufacturing Tech utilizing new medication once wound is healed. Patient is currently on immunosuppressant agents for autoimmune disease and Due to some pain about the ulcerative site and medial ankle we will empirically start her on oral antibiotic. Rx Augmentin 875 mg twice daily x 14 days. Stop date 07/09/2023. She did go to ED for some medial ankle pain on 07/01/2023 they did give dose of IV Vanco/Zosyn. Discussed finishing this antibiotic and due to recent cultures from ED visit on 07/01/23 demonstrating +1 Staph aureus. Discussed new antibiotic to be started, doxycycline 100 mg twice daily x 4 weeks (stop date 07/30/23) due to her autoimmune disease and taking suppressive agents her antibiotic course will be extended to allow for resolution and clearance. She does admit to some occasional nausea with the antibiotic and thus she will be started on Zofran 4mg tablets as needed. She does admit to taking some Zofran for her nausea following treatments for autoimmune disease. Discussed adequate protein intake to aid in wound healing. Oscar supplementation recommended. Discussed continuing early range of motion exercises while nonweightbearing. Discussed as wound nears closure physical therapy will be implemented to improve strength and motion to the right lower extremity. Discussed at this time to transition to supportive shoe gear to the right lower extremity. Discussed weight bearing in supportive shoe gear today. Discussed once wound has healed we will begin physical therapy to increase strength and flexibility of the right lower extremity. Discussed continuing local wound care with plans to apply for EpiFix graft for application at next visit, awaiting approval. At this time overall prognosis is good but complicated due to surgical dehiscence at the most proximal incision site secondary to chronic venous insufficiency, lower extremity edema, and autoimmune disease. We will continue local wound care at this time. Venous studies were performed 07/09/2023, no evidence of DVT. Valvular competence appears intact within the proximal deep venous system bilaterally. Great saphenous vein appears bilaterally patent and compressible segmentally. Saphenofemoral junctions are bilaterally competent. There is segmental valvular incompetence noted in the great saphenous veins bilaterally small saphenous veins patent and competent on the right and patent and incompetent on the left. There are several incompetent accessory saphenous veins and tributaries in the right lower extremity and 2 accessory saphenous veins of the left calf are incompetent. Discussed signs and symptoms of infection. Discussed with her if she notices increasing redness about the ulcerative site that moves up the leg, purulent drainage from the ulcerative site, increasing foul odor from the ulcerative site, or if she develops fever greater than 101 degree, develops nausea, vomiting, chills, these are signs of a progressing infection and she should report to the ED for IV antibiotics. She voices understanding of this today. The following work up and care recommendations were made: Dressing: Donated amnionic graft, Adaptic touch, Steri-Strips. Dry sterile dressing. May change outer dressings as needed Wash: Do not get site wet Tissue growth optimization: Donated amnionic graft Offload: To transition to full weightbearing to the right lower extremity in supportive shoe gear. foot. Patient was previously in CAM boot until surgical wound dehiscence. Transitioned back to surgical shoe to allow for decreased pressure at the wound site on the leg. Vascular: DP and PT pulses palpable with adequate capillary fill time to digits. Edema: Patient does have chronic venous insufficiency with bilateral lower extremity edema. Tubigrip compression is applied. Once wound is closed she will return to her prescription compression stockings. Infection: No signs of infection. Pain: May take [id number] Tylenol for discomfort Host factors: Chronic venous insufficiency, autoimmune disease I answered all the patient's questions. To return to the wound healing center in 1 week or call sooner if the patient has any questions or concerns. Will RTC for continued wound healing and postoperative care s/p primary repair of split tear of peroneal brevis tendon, primary repair of anterior tibiofibular ligament (AITFL), and syndesmotic repair via tight rope right lower extremity.
--- NOTE | 2023-07-30 09:56 | PCM.WC.PN ---
History of Present Illness Date of Service: 07/30/23 Chief Complaint: Surgical wound dehiscence right leg History of Wound: Patient is a 38-year-old female who subsequently developed a surgical wound dehiscence of her right lateral lower extremity. She previously underwent surgery for primary repair of split tear of the peroneus brevis tendon, primary repair of anterior tibiofibular ligament (AITFL), and syndesmotic reduction via tight rope of the right lower extremity on 04/24/2023. Following removal of sutures she developed surgical wound dehiscence secondary to continued lower extremity swelling via chronic venous insufficiency. She did undergo debridement in office 06/05/2023 and Deidre was applied at this time with Tubigrip compression. She has worn compression stockings to manage lower extremity swelling prior to surgical intervention. Patient is also noted to have autoimmune disease and is managed by rheumatology with medication and did resume all medications 2 weeks post operative per rheumatology. She was referred to the wound care center for continued wound healing. She has been applying Deidre and dry sterile dressings daily. She denies N/V/F/chills. Denies further complaints. Subjective Subjective Patient is a 38-year-old female who presents to the wound care center today for follow-up of a right lateral leg surgical dehiscence s/p repair of split tear of peroneal brevis tendon, AITFL ligament repair, and syndesmotic repair of the right ankle. She had left dressings in place changing outer dressings as needed. She is continuing oral antibiotic as instructed. She reports she is continuing to walk with the surgical shoe but is again assisted by knee scooter at visit today. States new blister formed on medial ankle. She denies constitutional symptoms today. Denies further complaints today. Objective Data Objective Data Vital Signs: Vital Signs Temp Pulse Resp BP O2 Del Method 97.8 F 103 H 18 143/92 H Room Air 07/23/23 09:47 07/23/23 09:47 07/23/23 09:47 07/23/23 09:47 07/23/23 09:47 Oxygen Delivery Method Room Air Physical Exam Const alert, oriented x3, no apparent distress and well nourished General Appearance: cooperative HEENT normocephalic Eyes General Eye: normal appearance of both eyes Neck General: normal visual inspection Lymph Lymphatic: no lymphadenopathy noted and no lymphedema noted Resp normal respiratory effort Cardio regular rate and regular rhythm Extremity normal capillary refill, no joint enlargement, no calf tenderness and no pedal edema Extremity Narrative: DP and PT pulses palpable bilateral. Capillary fill time less than 3 seconds to digits bilateral. Dermatological: There is bilateral lower extremity edema secondary to chronic venous stasis with some hemosiderin deposition noted about the right lower extremity. There is a surgical dehiscence of the proximal incision on the right lower extremity with subsequent ulceration. Ulceration demonstrates mixed fibrogranular layer with some serosanguineous drainage. Surrounding skin does have rubor secondary to chronic venous stasis in addition to autoimmune disease. Ulceration demonstrates no signs of infection. Distal aspect of the incision right lateral leg is a well-healed cicatrix. Anterior lateral leg demonstrates well-healed cicatrix. No signs of infection. Medial ankle rubor noted with some tenderness to palpation. Musculoskeletal: Muscle strength 5 of 5 age-appropriate. No pain to palpation about the lateral leg of the right lower extremity. Skin no rashes or lesions noted, skin turgor normal and no jaundice Neuro moves all extremities Debridement Note Debridement Note Wound debrided: Right lateral leg Laterality: Right Wound Grade/Stage: Maciel stage I Type of Debridement: Excisional debridement Anesthesia Used: 5% Lidocaine Gel Depth: Down to and including healthy tissue and in the subcutaneous layer Percentage of wound debrided: 100 Instrument Used: 5mm curette Tissue Removed: Fibrous, devitalized subcutaneous, biofilm, slough Severity: Fat Layer Exposed Amount of bleeding with debridement: Mild Bleeding Controlled with: Compression and gauze Patient tolerated procedure: Patient tolerated procedure well Post-Debridement Measurements and Additional Note: Post-Debridement Measurements/Treatment - Nurse 1 - General Ulcer Assessment Start: 07/23/23 09:46 Freq: Status: Active Protocol: [email or web address].LOWEXT Activity Type Activity Date Activity User E-sign Co-sign Detail Recorded Client Recorded Date Recorded By Document 07/23/23 09:47 KW Desktop 07/23/23 10:02 KW 07/23/23 09:47 - Today's Visit Information Type of service 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 ) Arrival Mode Ambulatory, Other Arrival Mode (Other) KNEE SCOOTER Patient Identification Verified (Name & Yes ) Vital Signs Temperature (97.8 F-99.1 F) 97.8 F Temperature Source Temporal Pulse Rate (60-100) 103 H Pulse Location Monitor Respiratory Rate (12-18) 18 Respiratory rate source Observation Oxygen Delivery Method Room Air Blood Pressure (90/60-120/80) 143/92 H Blood Pressure Mean (mm Hg) 109 Source Monitor Position Semi-Fowlers Blood Pressure Location Right Forearm History Since Last Visit- (Skip if this is Patient's initial visit) Have you changed medications since your No last visit? Any new allergies or adverse reactions No Had a fall/change in ADL's that may No increase risk of falls Signs or symptoms of abuse and/or No neglect since last visit Have you been in the hospital since your No last visit? Has dressing in place as prescribed Yes Has compression in place as prescribed Yes Has offloadiing in place as prescribed Yes Experienced any changes in pain level or No management Left Footwear Regular Shoe Right Footwear Surgical Shoe with pressure relief insole Pain Scale: 0-10 Numeric Is Patient Pain Free? Yes WC - Nurse 1 - General Ulcer Measurement Start: 07/23/23 09:46 Freq: Status: Active Protocol: Activity Type Activity Date Activity User E-sign Co-sign Detail Recorded Client Recorded Date Recorded By Document 07/23/23 09:47 KW Desktop 07/23/23 10:02 KW 07/23/23 09:47 Wound Center Nurse 1 #1 RT LAT ANKLE CLUSTER -Current Size (cm) - Length 1.5 -Current Size (cm) - Width 0.6 -Current Size (cm) - Depth 0.3 -Total Square Cm 0.90 -Date of Last Picture (Recall this 07/23/23 field) -Photo Taken Yes -Exudate Amt Small -Exudate Type Serosanguineous -Wound Margin Distinct, Outline Attached -Granulation Amt Small (1-33%) -Granulation Quality Red -Necrosis Amt Large (67-100%) -Necrotic Tissue Type Adherent Slough -Texture (Meghan-wound Skin Appearance) Assessed, Localized Edema -Moisture (Meghan-wound Skin Appearance) Assessed -Color (Meghan-wound Skin Appearance) Assessed, Erythema -Temperature (Meghan-wound Skin No Abnormality Appearance) (Pt Warm) -Ulcer Cleansing Soap and Water -Anesthetic Used 5% Lidocaine Gel Right Calf (cm) 42 Right Ankle (cm) 31.5 WC - Nurse 2 - General Ulcer CM Notes Start: 07/23/23 09:46 Freq: Status: Active Protocol: Activity Type Activity Date Activity User E-sign Co-sign Detail Recorded Client Recorded Date Recorded By Document 07/23/23 11:14 PL [id number] 07/23/23 11:16 PL 07/23/23 11:14 Wound Center Nurse 2 #1 RT LAT ANKLE CLUSTER -Time 10:10 -Correct Patient Yes -Correct Side, Site, Position Yes -Correct Procedure Yes -Procedure Performed Yes -Type of Procedure Debridement -Clinical Debridement Subcutaneous -Tissue Removed Subcutaneous -Post Debridement (cm) - Length 1.5 -Post Debridement (cm) - Width 0.3 -Post Debridement (cm) - Depth 0.1 -Total Square (Post) (cm) 0.45 -Area of Debridement (cm) - Length 1.5 -Area of Debridement (cm) - Width 0.3 -Total Square (Area) (cm) 0.45 -Tunneling No -Undermining/Tunneling No -Circular Undermining No -Wound/Ulcer Outcome Not Healed -Ulcer Cleansing Rinsed/ Irrigated with Saline -Foul Odor after Cleansing No -Bioengineered Tissue Yes -Expiration Date 07/28/24 -Product Lot Number [id number] Matrion -Percent Used 100 -Bleeding Controlled with Pressure -Treatment Response Procedure Tolerated Well -Debridement - Subq, 1st 20sq cm Yes Pain Scale: 0-10 Numeric Is Patient Pain Free? Yes - Nurse 3 - General Ulcer D/C NN Start: 07/23/23 09:46 Freq: Status: Active Protocol: Activity Type Activity Date Activity User E-sign Co-sign Detail Recorded Client Recorded Date Recorded By Document 07/23/23 10:22 KW Desktop 07/23/23 10:22 KW 07/23/23 10:22 Wound Care Center Nurse 3 #1 RT LAT ANKLE CLUSTER -Primary Dressing Covered/Secured with Dry Gauze & Roll Gauze, Secured with Tape Right -Tubular Bandage Single Layer -Size of Tubigrip Used Size E -Size E ($) 1 Pain Scale: 0-10 Numeric Is Patient Pain Free? Yes WC - Visit Discharge Discharge Condition Stable Ambulatory Status Ambulatory Medication Reconcilliation completed & No provided to patient/care provider Clinical Summary of Care Provided Yes Notes: PT USES A KNEE ROLLER Assessment/Plan Assessment/Plan (1) Non-pressure chronic ulcer of right calf with fat layer exposed: CODE(S): L97.212 - Non-pressure chronic ulcer of right calf with fat layer exposed (2) Venous insufficiency (chronic) (peripheral): CODE(S): I87.2 - Venous insufficiency (chronic) (peripheral) (3) Surgical wound dehiscence: CODE(S): T81.31XA - Disruption of external operation (surgical) wound, not elsewhere classified, initial encounter (4) Peroneal tendinitis, right leg: CODE(S): M76.71 - Peroneal tendinitis, right leg (5) Injury of peroneal tendon of right foot: CODE(S): S86.301A - Unspecified injury of muscle(s) and tendon(s) of peroneal muscle group at lower leg level, right leg, initial encounter (6) Rupture of ligament of right ankle: CODE(S): S93.401A - Sprain of unspecified ligament of right ankle, initial encounter (7) Syndesmotic disruption of right ankle: CODE(S): S93.431A - Sprain of tibiofibular ligament of right ankle, initial encounter (8) Pain in right lower leg: CODE(S): M79.661 - Pain in right lower leg PLAN: Plan Patient seen and evaluated She presents today postoperatively s/p primary repair of split tear of peroneal brevis tendon, primary repair of anterior tibiofibular ligament (AITFL), and syndesmotic reduction via tight rope DOS 04/24/2023, POD #97 States pain to her right lateral ankle is continuing to improve she is continuing weight bearing to the Right foot. Denies calf pain today. Does admit to some upper leg pain where she did have dehiscence of her surgical incision site of the proximal portion of her lateral leg incision, but this is continuing to improve. She reports this did begin to open up on 06/02/2023 following lower extremity swelling secondary to her chronic venous insufficiency. She reports she was having difficulty with the Tubigrip compression which did allow for more leg swelling and opening of her surgical incision site. Dehiscence occurred 2 weeks following the removal of her sutures. Denies calf pain today. Negative Robertson sign & Negative Ro's sign. Does have some tenderness about wound site on lateral leg which is continuing to improve, and tenderness to the medial ankle with new blister formation. She has remained protective weightbearing to the right lower extremity with surgical shoe. Does admit to utilizing the assistance of a knee scooter at times. She has continued weightbearing in a surgical shoe as she does state the CAM boot does rub on the wound site causing some discomfort. States this is going well but does admit to some stiff feeling of the ankle but does expect this following surgery. States it is improving. Discussed transition to supportive shoe gear again today. Encouraged continued ambulation in supportive shoe gear vs surgical shoe Dressings were removed today and site was inspected. Anterior lateral ankle demonstrates well-healed cicatrix. Lateral ankle demonstrates well-healed cicatrix distally and proximally surgical dehiscence of wound with underlying ulceration. Ulceration did undergo debridement as noted in the clinical panel above. Ulceration measures 1.1 cm x 0.6 cm x 0.2 cm. Donated amnionic graft was applied to wound bed today. Site was dressed with Adaptic touch and anchored with Steri-Strips. Instructed to change outer dressings as needed and to not get the site wet. Tubigrip compression stocking applied to the lower extremity. She was also encouraged to transition to full weightbearing to the right lower extremity in supportive shoe gear and elevate lower extremity at all times of rest for edema control. There is a reduction in size of the ulceration versus previous visit. Overall is healing well. Blister on medial ankle Underwent local anesthetic block consisting of 2 cc 2% lidocaine plain And the blister was then lanced Utilizing a #15 blade no purulence was expressible. Site was then flushed with copious amounts of normal sterile saline and dressed with Surgifoam and dry sterile dressings. She is discussing with Rheumatology and Clinical Scientist utilizing new medication once wound is healed. Patient is currently on immunosuppressant agents for autoimmune disease and Due to some pain about the ulcerative site and medial ankle we will empirically start her on oral antibiotic. Rx Augmentin 875 mg twice daily x 14 days. Stop date 07/09/2023. She did go to ED for some medial ankle pain on 07/01/2023 they did give dose of IV Vanco/Zosyn. Discussed finishing this antibiotic and due to recent cultures from ED visit on 07/01/23 demonstrating +1 Staph aureus. Discussed new antibiotic to be started, doxycycline 100 mg twice daily x 4 weeks (stop date 07/30/23) due to her autoimmune disease and taking suppressive agents her antibiotic course will be extended to allow for resolution and clearance. She does admit to some occasional nausea with the antibiotic and thus she will be started on Zofran 4mg tablets as needed. She does admit to taking some Zofran for her nausea following treatments for autoimmune disease. Discussed adequate protein intake to aid in wound healing. Oscar supplementation recommended. Discussed continuing early range of motion exercises while nonweightbearing. Discussed as wound nears closure physical therapy will be implemented to improve strength and motion to the right lower extremity. Discussed at this time to transition to supportive shoe gear to the right lower extremity. Discussed weight bearing in supportive shoe gear today. Discussed once wound has healed we will begin physical therapy to increase strength and flexibility of the right lower extremity. Discussed continuing local wound care with plans to apply for EpiFix graft for application at next visit, awaiting approval. At this time overall prognosis is good but complicated due to surgical dehiscence at the most proximal incision site secondary to chronic venous insufficiency, lower extremity edema, and autoimmune disease. We will continue local wound care at this time. Venous studies were performed 07/09/2023, no evidence of DVT. Valvular competence appears intact within the proximal deep venous system bilaterally. Great saphenous vein appears bilaterally patent and compressible segmentally. Saphenofemoral junctions are bilaterally competent. There is segmental valvular incompetence noted in the great saphenous veins bilaterally small saphenous veins patent and competent on the right and patent and incompetent on the left. There are several incompetent accessory saphenous veins and tributaries in the right lower extremity and 2 accessory saphenous veins of the left calf are incompetent. Discussed signs and symptoms of infection. Discussed with her if she notices increasing redness about the ulcerative site that moves up the leg, purulent drainage from the ulcerative site, increasing foul odor from the ulcerative site, or if she develops fever greater than 101 degree, develops nausea, vomiting, chills, these are signs of a progressing infection and she should report to the ED for IV antibiotics. She voices understanding of this today. The following work up and care recommendations were made: Dressing: Donated amnionic graft, Adaptic touch, Steri-Strips. Dry sterile dressing. May change outer dressings as needed Wash: Do not get site wet Tissue growth optimization: Donated amnionic graft Offload: To transition to full weightbearing to the right lower extremity in supportive shoe gear. foot. Patient was previously in CAM boot until surgical wound dehiscence. Transitioned back to surgical shoe to allow for decreased pressure at the wound site on the leg. Vascular: DP and PT pulses palpable with adequate capillary fill time to digits. Edema: Patient does have chronic venous insufficiency with bilateral lower extremity edema. Tubigrip compression is applied. Once wound is closed she will return to her prescription compression stockings. Infection: No signs of infection. Pain: May take [id number] Tylenol for discomfort Host factors: Chronic venous insufficiency, autoimmune disease I answered all the patient's questions. To return to the wound healing center in 1 week or call sooner if the patient has any questions or concerns. Will RTC for continued wound healing and postoperative care s/p primary repair of split tear of peroneal brevis tendon, primary repair of anterior tibiofibular ligament (AITFL), and syndesmotic repair via tight rope right lower extremity.
[2023-07-30 10:02] VITALS: BP 127/87; PULSE 98; RESP 18
[2023-08-06 10:28] VITALS: BP 131/89; PULSE 100; RESP 16; TEMP 36.6
--- NOTE | 2023-08-06 10:28 | PN.PCM_ITS ---
History of Present Illness Date of Service: 08/06/23 Chief Complaint: Surgical wound dehiscence right leg History of Wound: Patient is a 38-year-old female who subsequently developed a surgical wound dehiscence of her right lateral lower extremity. She previously underwent surgery for primary repair of split tear of the peroneus brevis tendon, primary repair of anterior tibiofibular ligament (AITFL), and syndesmotic reduction via tight rope of the right lower extremity on 04/24/2023. Following removal of sutures she developed surgical wound dehiscence secondary to continued lower extremity swelling via chronic venous insufficiency. She did undergo debridement in office 06/05/2023 and Deidre was applied at this time with Tubigrip compression. She has worn compression stockings to manage lower extremity swelling prior to surgical intervention. Patient is also noted to have autoimmune disease and is managed by rheumatology with medication and did resume all medications 2 weeks post operative per rheumatology. She was referred to the wound care center for continued wound healing. She has been applying Deidre and dry sterile dressings daily. She denies N/V/F/chills. Denies further complaints. Subjective Subjective Patient is a 38-year-old female who presents to the wound care center today for follow-up of a right lateral leg surgical dehiscence s/p repair of split tear of peroneal brevis tendon, AITFL ligament repair, and syndesmotic repair of the right ankle. She had left dressings in place changing outer dressings as needed. She has finished oral antibiotic as instructed. She reports she is continuing to walk with the surgical shoe in her apartment but is again assisted by knee scooter at visit today. She is continuing to work with resistance bands at home and doing home exercises to increase strength to lower extremity. She denies constitutional symptoms today. Denies further complaints today. Objective Data Objective Data Vital Signs: Vital Signs Temp Pulse Resp BP O2 Del Method 97.8 F 98 18 127/87 H Room Air 07/23/23 09:47 07/30/23 10:02 07/30/23 10:02 07/30/23 10:02 07/30/23 10:02 Oxygen Delivery Method Room Air Physical Exam Const alert, oriented x3, no apparent distress and well nourished General Appearance: cooperative HEENT normocephalic Eyes General Eye: normal appearance of both eyes Neck General: normal visual inspection Lymph Lymphatic: no lymphadenopathy noted and no lymphedema noted Resp normal respiratory effort Cardio regular rate and regular rhythm Extremity normal capillary refill, no joint enlargement, no calf tenderness and no pedal edema Extremity Narrative: DP and PT pulses palpable bilateral. Capillary fill time less than 3 seconds to digits bilateral. Dermatological: There is bilateral lower extremity edema secondary to chronic venous stasis with some hemosiderin deposition noted about the right lower extremity. There is a surgical dehiscence of the proximal incision on the right lower extremity with subsequent ulceration. Ulceration demonstrates mixed fibrogranular layer with some serosanguineous drainage. Surrounding skin does have rubor secondary to chronic venous stasis in addition to autoimmune disease. Ulceration demonstrates no signs of infection. Distal aspect of the incision right lateral leg is a well-healed cicatrix. Anterior lateral leg demonstrates well-healed cicatrix. No signs of infection. Medial ankle wound secondary to autoimmune response with rubor noted with some tenderness to palpation. Musculoskeletal: Muscle strength 5 of 5 age-appropriate. No pain to palpation about the lateral leg of the right lower extremity. Skin no rashes or lesions noted, skin turgor normal and no jaundice Neuro moves all extremities Debridement Note Debridement Note Wound debrided: Right lower extremity x 2 Laterality: Right Wound Grade/Stage: Maciel stage I Type of Debridement: Excisional debridement Anesthesia Used: 5% Lidocaine Gel Depth: Down to and including healthy tissue and in the subcutaneous layer Percentage of wound debrided: 100 Instrument Used: 5mm curette, #15 blade and Forceps Tissue Removed: Fibrous, devitalized subcutaneous, biofilm, slough Severity: Fat Layer Exposed Amount of bleeding with debridement: Mild Bleeding Controlled with: Compression and gauze Patient tolerated procedure: Patient tolerated procedure well Post-Debridement Measurements and Additional Note: Post-Debridement Measurements/Treatment - Nurse 1 - General Ulcer Assessment Start: 07/23/23 09:46 Freq: Status: Active Protocol: LAURIE Activity Type Activity Date Activity User E-sign Co-sign Detail Recorded Client Recorded Date Recorded By Document 07/23/23 09:47 KW Desktop 07/23/23 10:02 KW Document 07/30/23 10:02 KW Desktop 07/30/23 10:16 KW 07/23/23 07/30/23 09:47 10:02 - Today's Visit Information Type of service Follow-up Visit Follow-up Visit (Physician/EMAIL PRODUCTION SPECIALIST (Physician/EMAIL PRODUCTION SPECIALIST ) ) Arrival Mode Ambulatory, Ambulatory, Other Other Arrival Mode (Other) KNEE SCOOTER KNEE ROLLER Patient Identification Verified (Name & Yes Yes ) Vital Signs Temperature (97.8 F-99.1 F) 97.8 F Temperature Source Temporal Pulse Rate (60-100) 103 H 98 Pulse Location Monitor Monitor Respiratory Rate (12-18) 18 18 Respiratory rate source Observation Observation Oxygen Delivery Method Room Air Room Air Blood Pressure (90/60-120/80) 143/92 H 127/87 H Blood Pressure Mean (mm Hg) 109 100 Source Monitor Monitor Position Semi-Fowlers Semi-Fowlers Blood Pressure Location Right Forearm Left Arm History Since Last Visit- (Skip if this is Patient's initial visit) Have you changed medications since your No No last visit? Any new allergies or adverse reactions No No Had a fall/change in ADL's that may No No increase risk of falls Signs or symptoms of abuse and/or No No neglect since last visit Have you been in the hospital since your No No last visit? Has dressing in place as prescribed Yes Yes Has compression in place as prescribed Yes Yes Has offloadiing in place as prescribed Yes No Experienced any changes in pain level or No No management Left Footwear Regular Shoe Regular Shoe Right Footwear Surgical Shoe Surgical Shoe with pressure with pressure relief insole relief insole Pain Scale: 0-10 Numeric Is Patient Pain Free? Yes Yes WC - Nurse 1 - General Ulcer Measurement Start: 07/23/23 09:46 Freq: Status: Active Protocol: Activity Type Activity Date Activity User E-sign Co-sign Detail Recorded Client Recorded Date Recorded By Document 07/23/23 09:47 KW Desktop 07/23/23 10:02 KW Document 07/30/23 10:02 KW Desktop 07/30/23 10:16 KW 07/23/23 07/30/23 09:47 10:02 Wound Center Nurse 1 #2 RT MED ANKLE -Current Size (cm) - Length 0.1 -Current Size (cm) - Width 0.1 -Current Size (cm) - Depth 0.1 -Total Square Cm 0.01 -Date of Last Picture (Recall this 07/30/23 field) -Photo Taken Yes -Exudate Amt Small -Exudate Type Serosanguineous -Texture (Meghan-wound Skin Appearance) Assessed -Moisture (Meghan-wound Skin Appearance) Assessed -Color (Meghan-wound Skin Appearance) Erythema -Temperature (Meghan-wound Skin No Abnormality Appearance) (Pt Warm) -Ulcer Cleansing Soap and Water -Anesthetic Used 5% Lidocaine Gel -Wound Comment(s) BLISTER #1 RT LAT ANKLE CLUSTER -Current Size (cm) - Length 1.5 1.3 -Current Size (cm) - Width 0.6 0.5 -Current Size (cm) - Depth 0.3 0.1 -Total Square Cm 0.90 0.65 -Date of Last Picture (Recall this 07/23/23 07/30/23 field) -Photo Taken Yes Yes -Exudate Amt Small -Exudate Type Serosanguineous Serosanguineous -Wound Margin Distinct, Distinct, Outline Outline Attached Attached -Granulation Amt Small (1-33%) Large (67-100%) -Granulation Quality Red Red -Necrosis Amt Large (67-100%) Small (1-33%) -Necrotic Tissue Type Adherent Slough Adherent Slough -Texture (Meghan-wound Skin Appearance) Assessed, Localized Edema Localized Edema -Moisture (Meghan-wound Skin Appearance) Assessed Assessed,Dry/ Scaly -Color (Meghan-wound Skin Appearance) Assessed, Assessed, Erythema Erythema -Temperature (Meghan-wound Skin No Abnormality No Abnormality Appearance) (Pt Warm) (Pt Warm) -Ulcer Cleansing Soap and Water Soap and Water -Anesthetic Used 5% Lidocaine 5% Lidocaine Gel Gel Right Calf (cm) 42 42.5 Right Ankle (cm) 31.5 31 WC - Nurse 2 - General Ulcer CM Notes Start: 07/23/23 09:46 Freq: Status: Active Protocol: Activity Type Activity Date Activity User E-sign Co-sign Detail Recorded Client Recorded Date Recorded By Document 07/23/23 11:14 PL [id number] 07/23/23 11:16 PL Document 07/30/23 12:07 PL [id number] 07/30/23 12:08 PL 07/23/23 07/30/23 11:14 12:07 Wound Center Nurse 2 #2 RT MED ANKLE -Time 10:20 -Correct Patient Yes -Correct Side, Site, Position Yes -Correct Procedure Yes -Procedure Performed Yes -Type of Procedure Debridement -Clinical Debridement Subcutaneous -Tissue Removed Subcutaneous -Post Debridement (cm) - Length 1.1 -Post Debridement (cm) - Width 0.6 -Post Debridement (cm) - Depth 0.1 -Total Square (Post) (cm) 0.66 -Area of Debridement (cm) - Length 1.1 -Area of Debridement (cm) - Width 0.6 -Total Square (Area) (cm) 0.66 -Tunneling No -Undermining/Tunneling No -Circular Undermining No -Wound/Ulcer Outcome Not Healed -Ulcer Cleansing Rinsed/ Irrigated with Saline -Foul Odor after Cleansing No -Bioengineered Tissue No -Bleeding Controlled with Pressure, SURGIFOAM -Treatment Response Procedure Tolerated Well -Debridement - Subq, 1st 20sq cm Yes #1 RT LAT ANKLE CLUSTER -Time 10:10 -Correct Patient Yes -Correct Side, Site, Position Yes -Correct Procedure Yes -Procedure Performed Yes -Type of Procedure Debridement -Clinical Debridement Subcutaneous -Tissue Removed Subcutaneous -Post Debridement (cm) - Length 1.5 -Post Debridement (cm) - Width 0.3 -Post Debridement (cm) - Depth 0.1 -Total Square (Post) (cm) 0.45 -Area of Debridement (cm) - Length 1.5 -Area of Debridement (cm) - Width 0.3 -Total Square (Area) (cm) 0.45 -Tunneling No -Undermining/Tunneling No -Circular Undermining No -Wound/Ulcer Outcome Not Healed -Ulcer Cleansing Rinsed/ Irrigated with Saline -Foul Odor after Cleansing No -Bioengineered Tissue Yes -Expiration Date 07/28/24 -Product Lot Number [id number] Matrion -Percent Used 100 -Bleeding Controlled with Pressure -Treatment Response Procedure Tolerated Well -Debridement - Subq, 1st 20sq cm Yes Pain Scale: 0-10 Numeric Is Patient Pain Free? Yes Yes WC - Nurse 3 - General Ulcer D/C NN Start: 07/23/23 09:46 Freq: Status: Active Protocol: Activity Type Activity Date Activity User E-sign Co-sign Detail Recorded Client Recorded Date Recorded By Document 07/23/23 10:22 KW Desktop 07/23/23 10:22 KW 07/23/23 10:22 Wound Care Center Nurse 3 #1 RT LAT ANKLE CLUSTER -Primary Dressing Covered/Secured with Dry Gauze & Roll Gauze, Secured with Tape Right -Tubular Bandage Single Layer -Size of Tubigrip Used Size E -Size E ($) 1 Pain Scale: 0-10 Numeric Is Patient Pain Free? Yes WC - Visit Discharge Discharge Condition Stable Ambulatory Status Ambulatory Medication Reconcilliation completed & No provided to patient/care provider Clinical Summary of Care Provided Yes Notes: PT USES A KNEE ROLLER Assessment/Plan Assessment/Plan (1) Non-pressure chronic ulcer of right calf with fat layer exposed: CODE(S): L97.212 - Non-pressure chronic ulcer of right calf with fat layer exposed (2) Venous insufficiency (chronic) (peripheral): CODE(S): I87.2 - Venous insufficiency (chronic) (peripheral) (3) Surgical wound dehiscence: CODE(S): T81.31XA - Disruption of external operation (surgical) wound, not elsewhere classified, initial encounter (4) Peroneal tendinitis, right leg: CODE(S): M76.71 - Peroneal tendinitis, right leg (5) Injury of peroneal tendon of right foot: CODE(S): S86.301A - Unspecified injury of muscle(s) and tendon(s) of peroneal muscle group at lower leg level, right leg, initial encounter (6) Rupture of ligament of right ankle: CODE(S): S93.401A - Sprain of unspecified ligament of right ankle, initial encounter (7) Syndesmotic disruption of right ankle: CODE(S): S93.431A - Sprain of tibiofibular ligament of right ankle, initial encounter (8) Pain in right lower leg: CODE(S): M79.661 - Pain in right lower leg (9) 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 Denies calf pain today. Does admit to some upper leg pain where she did have dehiscence of her surgical incision site of the proximal portion of her lateral leg incision, but this is continuing to improve. She reports this did begin to open up on 06/02/2023 following lower extremity swelling secondary to her chronic venous insufficiency. She reports she was having difficulty with the Tubigrip compression which did allow for more leg swelling and opening of her surgical incision site. Dehiscence occurred 2 weeks following the removal of her sutures. Denies calf pain today. Negative Robertson sign & Negative Ro's sign. Does have some tenderness about wound site on lateral leg which is continuing to improve, and tenderness to the medial ankle with ulceration secondary to her autoimmune response. She has remained protective weightbearing to the right lower extremity with surgical shoe. Does admit to utilizing the assistance of a knee scooter at times. She has continued weightbearing in a surgical shoe as she does state the CAM boot does rub on the wound site causing some discomfort. States this is going well but does admit to some stiff feeling of the ankle but does expect this following surgery. States it is improving. Discussed transition to supportive shoe gear again today. Encouraged continued ambulation in supportive shoe gear vs surgical shoe Dressings were removed today and site was inspected. Anterior lateral ankle demonstrates well-healed cicatrix. Lateral ankle demonstrates well-healed cicatrix distally and proximally surgical dehiscence of wound with underlying ulceration. Ulceration did undergo debridement as noted in the clinical panel above. Ulceration measures 1.4 cm x 0.7 cm x 0.1 cm. Medial ankle ulceration measures 0.5 cm x 0.5 cm x 0.1 cm. Donated amnionic graft was applied to wound bed today. Sites was dressed with Adaptic touch and anchored with Steri-Strips. Instructed to change outer dressings as needed and to not get the site wet. Tubigrip compression stocking applied to the lower extremity. She was also encouraged to transition to full weightbearing to the right lower extremity in supportive shoe gear and elevate lower extremity at all times of rest for edema control. There is a slight increase in size of the ulceration versus previous visit. Overall is healing well. She is discussing with Rheumatology and Support Merchandiser utilizing new medication once wound is healed. Patient is currently on immunosuppressant agents for autoimmune disease and Due to some pain about the ulcerative site and medial ankle we will empirically start her on oral antibiotic. Rx Augmentin 875 mg twice daily x 14 days. Stop date 07/09/2023. She did go to ED for some medial ankle pain on 07/01/2023 they did give dose of IV Vanco/Zosyn. Discussed finishing this antibiotic and due to recent cultures from ED visit on 07/01/23 demonstrating +1 Staph aureus. Discussed new antibiotic to be started, doxycycline 100 mg twice daily x 4 weeks (stop date 07/30/23) due to her autoimmune disease and taking suppressive agents her antibiotic course will be extended to allow for resolution and clearance. She does admit to some occasional nausea with the antibiotic and thus she will be started on Zofran 4mg tablets as needed. She does admit to taking some Zofran for her nausea following treatments for autoimmune disease. Discussed adequate protein intake to aid in wound healing. Oscar supplementation recommended. Discussed continuing range of motion exercises while nonweightbearing, including working with resistance bands to increase lower extremity strength. Discussed as wound nears closure physical therapy will be implemented to improve strength and motion to the right lower extremity. Discussed at this time to transition to supportive shoe gear to the right lower extremity. Discussed weight bearing in supportive shoe gear today. Discussed once wound has healed we will begin physical therapy to increase strength and flexibility of the right lower extremity. Discussed continuing local wound care with plans to apply for EpiFix graft for application at next visit, awaiting approval. At this time overall prognosis is good but complicated due to surgical dehiscence at the most proximal incision site secondary to chronic venous insufficiency, lower extremity edema, and autoimmune disease. We will continue local wound care at this time. Venous studies were performed 07/09/2023, no evidence of DVT. Valvular competence appears intact within the proximal deep venous system bilaterally. Great saphenous vein appears bilaterally patent and compressible segmentally. Saphenofemoral junctions are bilaterally competent. There is segmental valvular incompetence noted in the great saphenous veins bilaterally small saphenous veins patent and competent on the right and patent and incompetent on the left. There are several incompetent accessory saphenous veins and tributaries in the right lower extremity and 2 accessory saphenous veins of the left calf are incompetent. Discussed signs and symptoms of infection. Discussed with her if she notices increasing redness about the ulcerative site that moves up the leg, purulent drainage from the ulcerative site, increasing foul odor from the ulcerative site, or if she develops fever greater than 101 degree, develops nausea, vomiting, chills, these are signs of a progressing infection and she should report to the ED for IV antibiotics. She voices understanding of this today. The following work up and care recommendations were made: Dressing: Donated amnionic graft, Adaptic touch, Steri-Strips. Dry sterile dressing. May change outer dressings as needed Wash: Do not get site wet Tissue growth optimization: Donated amnionic graft Offload: To transition to full weightbearing to the right lower extremity in supportive shoe gear. foot. Patient was previously in CAM boot until surgical wound dehiscence. Transitioned back to surgical shoe to allow for decreased pressure at the wound site on the leg. Vascular: DP and PT pulses palpable with adequate capillary fill time to digits. Edema: Patient does have chronic venous insufficiency with bilateral lower extremity edema. Tubigrip compression is applied. Once wound is closed she will return to her prescription compression stockings. Infection: No signs of infection. Pain: May take [id number] Tylenol for discomfort Host factors: Chronic venous insufficiency, autoimmune disease I answered all the patient's questions. To return to the wound healing center in 1 week or call sooner if the patient has any questions or concerns. Will RTC for continued wound healing and postoperative care s/p primary repair of split tear of peroneal brevis tendon, primary repair of anterior tibiofibular ligament (AITFL), and syndesmotic repair via tight rope right lower extremity.
[2023-08-13 10:06] VITALS: BP 145/80; PULSE 90; RESP 18
--- NOTE | 2023-08-13 10:08 | PCM.WC.PN ---
History of Present Illness Date of Service: 08/13/23 Chief Complaint: Surgical wound dehiscence right leg History of Wound: Patient is a 38-year-old female who subsequently developed a surgical wound dehiscence of her right lateral lower extremity. She previously underwent surgery for primary repair of split tear of the peroneus brevis tendon, primary repair of anterior tibiofibular ligament (AITFL), and syndesmotic reduction via tight rope of the right lower extremity on 04/24/2023. Following removal of sutures she developed surgical wound dehiscence secondary to continued lower extremity swelling via chronic venous insufficiency. She did undergo debridement in office 06/05/2023 and Deidre was applied at this time with Tubigrip compression. She has worn compression stockings to manage lower extremity swelling prior to surgical intervention. Patient is also noted to have autoimmune disease and is managed by rheumatology with medication and did resume all medications 2 weeks post operative per rheumatology. She was referred to the wound care center for continued wound healing. She has been applying Deidre and dry sterile dressings daily. She denies N/V/F/chills. Denies further complaints. Subjective Subjective Patient is a 38-year-old female who presents to the wound care center today for follow-up of a right lateral leg surgical dehiscence s/p repair of split tear of peroneal brevis tendon, AITFL ligament repair, and syndesmotic repair of the right ankle. She had left dressings in place changing outer dressings as needed. She reports she is continuing to walk with the surgical shoe in her apartment but is again assisted by knee scooter at visit today. She is continuing to work with resistance bands at home and doing home exercises to increase strength to lower extremity. She denies constitutional symptoms today. Denies further complaints today. Objective Data Objective Data Vital Signs: Vital Signs Temp Pulse Resp BP O2 Del Method 97.9 F 100 16 131/89 H Room Air 08/06/23 10:08/06/23 10:08/06/23 10:08/06/23 10:08/06/23 10:28 Oxygen Delivery Method Room Air Physical Exam Const alert, oriented x3, no apparent distress and well nourished General Appearance: cooperative HEENT normocephalic Eyes General Eye: normal appearance of both eyes Neck General: normal visual inspection Lymph Lymphatic: no lymphadenopathy noted and no lymphedema noted Resp normal respiratory effort Cardio regular rate and regular rhythm Extremity normal capillary refill, no joint enlargement, no calf tenderness and no pedal edema Extremity Narrative: DP and PT pulses palpable bilateral. Capillary fill time less than 3 seconds to digits bilateral. Dermatological: There is bilateral lower extremity edema secondary to chronic venous stasis with some hemosiderin deposition noted about the right lower extremity. There is a surgical dehiscence of the proximal incision on the right lower extremity with subsequent ulceration. Ulceration demonstrates mixed fibrogranular layer with some serosanguineous drainage. Surrounding skin does have rubor secondary to chronic venous stasis in addition to autoimmune disease. Ulceration demonstrates no signs of infection. Distal aspect of the incision right lateral leg is a well-healed cicatrix. Anterior lateral leg demonstrates well-healed cicatrix. No signs of infection. Medial ankle wound secondary to autoimmune response with rubor noted with some tenderness to palpation. Musculoskeletal: Muscle strength 5 of 5 age-appropriate. No pain to palpation about the lateral leg of the right lower extremity. Skin no rashes or lesions noted, skin turgor normal and no jaundice Neuro moves all extremities Debridement Note Debridement Note Wound debrided: Right lower extremity x 2 Laterality: Right Wound Grade/Stage: Maciel stage I Type of Debridement: Excisional debridement Anesthesia Used: 5% Lidocaine Gel Depth: Down to and including healthy tissue and in the subcutaneous layer Percentage of wound debrided: 100 Instrument Used: 3mm curette Tissue Removed: Fibrous, devitalized subcutaneous, biofilm, slough Severity: Fat Layer Exposed Amount of bleeding with debridement: Mild Bleeding Controlled with: Compression and gauze Patient tolerated procedure: Patient tolerated procedure well Post-Debridement Measurements and Additional Note: Post-Debridement Measurements/Treatment - Nurse 1 - General Ulcer Assessment Start: 07/23/23 09:46 Freq: Status: Active Protocol: LAURIE Activity Type Activity Date Activity User E-sign Co-sign Detail Recorded Client Recorded Date Recorded By Document 07/23/23 09:47 KW Desktop 07/23/23 10:02 KW Document 07/30/23 10:02 KW Desktop 07/30/23 10:16 KW Document 08/06/23 10:28 KW Desktop 08/06/23 10:42 KW 07/23/23 07/30/23 08/06/23 09:47 10:02 10:28 - Today's Visit Information Type of service Follow-up Visit Follow-up Visit Follow-up Visit (Physician/BLACKTOP PAVER OPERATOR (Physician/BLACKTOP PAVER OPERATOR (Physician/BLACKTOP PAVER OPERATOR ) ) ) Arrival Mode Ambulatory, Ambulatory, Ambulatory Other Other Arrival Mode (Other) KNEE SCOOTER KNEE ROLLER Patient Identification Verified (Name & Yes Yes Yes ) Vital Signs Temperature (97.8 F-99.1 F) 97.8 F 97.9 F Temperature Source Temporal Temporal Pulse Rate (60-100) 103 H 98 100 Pulse Location Monitor Monitor Monitor Respiratory Rate (12-18) 18 18 16 Respiratory rate source Observation Observation Observation Oxygen Delivery Method Room Air Room Air Room Air Blood Pressure (90/60-120/80) 143/92 H 127/87 H 131/89 H Blood Pressure Mean (mm Hg) 109 100 103 Source Monitor Monitor Monitor Position Semi-Fowlers Semi-Fowlers Sitting Blood Pressure Location Right Forearm Left Arm Left Forearm History Since Last Visit- (Skip if this is Patient's initial visit) Have you changed medications since your No No No last visit? Any new allergies or adverse reactions No No No Had a fall/change in ADL's that may No No No increase risk of falls Signs or symptoms of abuse and/or No No No neglect since last visit Have you been in the hospital since your No No No last visit? Has dressing in place as prescribed Yes Yes Yes Has compression in place as prescribed Yes Yes Yes Has offloadiing in place as prescribed Yes No Yes Experienced any changes in pain level or No No No management Left Footwear Regular Shoe Regular Shoe Regular Shoe Right Footwear Surgical Shoe Surgical Shoe Surgical Shoe with pressure with pressure with pressure relief insole relief insole relief insole Pain Scale: 0-10 Numeric Is Patient Pain Free? Yes Yes Yes - Nurse 1 - General Ulcer Measurement Start: 07/23/23 09:46 Freq: Status: Active Protocol: Activity Type Activity Date Activity User E-sign Co-sign Detail Recorded Client Recorded Date Recorded By Document 07/23/23 09:47 KW Desktop 07/23/23 10:02 KW Document 07/30/23 10:02 KW Desktop 07/30/23 10:16 KW Document 08/06/23 10:28 KW Desktop 08/06/23 10:42 KW 02/07/1507/30/23 08/06/23 09:47 10:02 10:28 Wound Center Nurse 1 #2 RT MED ANKLE -Current Size (cm) - Length 0.1 0.7 -Current Size (cm) - Width 0.1 0.7 -Current Size (cm) - Depth 0.1 0.1 -Total Square Cm 0.01 0.49 -Date of Last Picture (Recall this 07/30/23 field) -Photo Taken Yes -Exudate Amt Small Small -Exudate Type Serosanguineous Serosanguineous -Wound Margin Indistinct, Non -Visible -Granulation Amt Large (67-100%) -Granulation Quality Red -Texture (Meghan-wound Skin Appearance) Assessed Assessed, Localized Edema -Moisture (Meghan-wound Skin Appearance) Assessed Assessed -Color (Meghan-wound Skin Appearance) Erythema Erythema -Temperature (Meghan-wound Skin No Abnormality Appearance) (Pt Warm) -Ulcer Cleansing Soap and Water Soap and Water -Anesthetic Used 5% Lidocaine 5% Lidocaine Gel Gel -Wound Comment(s) BLISTER #1 RT LAT ANKLE CLUSTER -Current Size (cm) - Length 1.5 1.3 1.8 -Current Size (cm) - Width 0.6 0.5 0.9 -Current Size (cm) - Depth 0.3 0.1 0.1 -Total Square Cm 0.90 0.65 1.62 -Date of Last Picture (Recall this 07/23/23 07/30/23 field) -Photo Taken Yes Yes -Exudate Amt Small Medium -Exudate Type Serosanguineous Serosanguineous Serosanguineous -Wound Margin Distinct, Distinct, Distinct, Outline Outline Outline Attached Attached Attached -Granulation Amt Small (1-33%) Large (67-100%) Large (67-100%) -Granulation Quality Red Red Red -Necrosis Amt Large (67-100%) Small (1-33%) -Necrotic Tissue Type Adherent Slough Adherent Slough -Texture (Meghan-wound Skin Appearance) Assessed, Localized Edema Assessed, Localized Edema Localized Edema -Moisture (Meghan-wound Skin Appearance) Assessed Assessed,Dry/ Assessed Scaly -Color (Meghan-wound Skin Appearance) Assessed, Assessed, Assessed, Erythema Erythema Erythema -Temperature (Meghan-wound Skin No Abnormality No Abnormality Appearance) (Pt Warm) (Pt Warm) -Ulcer Cleansing Soap and Water Soap and Water Soap and Water -Anesthetic Used 5% Lidocaine 5% Lidocaine 5% Lidocaine Gel Gel Gel Right Calf (cm) 42 42.5 Right Ankle (cm) 31.5 31 WC - Nurse 2 - General Ulcer CM Notes Start: 07/23/23 09:46 Freq: Status: Active Protocol: Activity Type Activity Date Activity User E-sign Co-sign Detail Recorded Client Recorded Date Recorded By Document 07/23/23 11:14 PL [id number] 07/23/23 11:16 PL Document 07/30/23 12:07 PL [id number] 07/30/23 12:08 PL Document 08/06/23 11:49 PL [id number] 08/06/23 11:51 PL 07/23/23 07/30/23 08/06/23 11:14 12:07 11:49 Wound Center Nurse 2 #2 RT MED ANKLE -Time 10:20 10:54 -Correct Patient Yes Yes -Correct Side, Site, Position Yes Yes -Correct Procedure Yes Yes -Procedure Performed Yes Yes -Type of Procedure Debridement Debridement -Clinical Debridement Subcutaneous Subcutaneous -Tissue Removed Subcutaneous Subcutaneous -Post Debridement (cm) - Length 1.1 0.5 -Post Debridement (cm) - Width 0.6 0.5 -Post Debridement (cm) - Depth 0.1 0.1 -Total Square (Post) (cm) 0.66 0.25 -Area of Debridement (cm) - Length 1.1 0.5 -Area of Debridement (cm) - Width 0.6 0.5 -Total Square (Area) (cm) 0.66 0.25 -Tunneling No No -Undermining/Tunneling No No -Circular Undermining No No -Wound/Ulcer Outcome Not Healed Not Healed -Ulcer Cleansing Rinsed/ Rinsed/ Irrigated with Irrigated with Saline Saline -Foul Odor after Cleansing No No -Bioengineered Tissue No No -Bleeding Controlled with Pressure, Pressure SURGIFOAM -Treatment Response Procedure Procedure Tolerated Well Tolerated Well -Debridement - Subq, 1st 20sq cm Yes Yes #1 RT LAT ANKLE CLUSTER -Time 10:10 10:54 -Correct Patient Yes Yes -Correct Side, Site, Position Yes Yes -Correct Procedure Yes Yes -Procedure Performed Yes Yes -Type of Procedure Debridement Debridement -Clinical Debridement Subcutaneous Subcutaneous -Tissue Removed Subcutaneous Subcutaneous -Post Debridement (cm) - Length 1.5 1.4 -Post Debridement (cm) - Width 0.3 0.7 -Post Debridement (cm) - Depth 0.1 -Total Square (Post) (cm) 0.45 0.98 -Area of Debridement (cm) - Length 1.5 1.4 -Area of Debridement (cm) - Width 0.3 0.7 -Total Square (Area) (cm) 0.45 0.98 -Tunneling No No -Undermining/Tunneling No No -Circular Undermining No No -Wound/Ulcer Outcome Not Healed Not Healed -Ulcer Cleansing Rinsed/ Rinsed/ Irrigated with Irrigated with Saline Saline -Foul Odor after Cleansing No No -Bioengineered Tissue Yes No -Expiration Date 07/28/24 -Product Lot Number [id number] Matrion -Percent Used 100 -Bleeding Controlled with Pressure Pressure -Treatment Response Procedure Procedure Tolerated Well Tolerated Well -Debridement - Subq, 1st 20sq cm Yes No Pain Scale: 0-10 Numeric Is Patient Pain Free? Yes Yes Yes - Nurse 3 - General Ulcer D/C NN Start: 07/23/23 09:46 Freq: Status: Active Protocol: Activity Type Activity Date Activity User E-sign Co-sign Detail Recorded Client Recorded Date Recorded By Document 07/23/23 10:22 KW Desktop 07/23/23 10:22 KW Document 08/06/23 11:22 DL Desktop 08/06/23 11:23 DL 07/23/23 08/06/23 10:22 11:22 Wound Care Center Nurse 3 #2 RT MED ANKLE -Foul Odor after Cleansing No -Other Dressing Epifix -Primary Dressing Covered/Secured with Dry Gauze & Roll Gauze, Secured with Tape #1 RT LAT ANKLE CLUSTER -Foul Odor after Cleansing No -Other Dressing epifix -Primary Dressing Covered/Secured with Dry Gauze & Dry Gauze & Roll Gauze, Roll Gauze, Secured with Secured with Tape Tape Right -Tubular Bandage Single Layer Single Layer -Size of Tubigrip Used Size E Size D -Size D ($) 1 -Size E ($) 1 Treatment Response Procedure Tolerated Well Pain Scale: 0-10 Numeric Is Patient Pain Free? Yes Yes - Visit Discharge Discharge Condition Stable Stable Ambulatory Status Ambulatory Ambulatory, Walker Transportation Private Auto Medication Reconcilliation completed & No provided to patient/care provider Clinical Summary of Care Provided Yes Notes: PT USES A KNEE ROLLER Facility Type Home Health Orders Sent Yes Assessment/Plan Assessment/Plan (1) Non-pressure chronic ulcer of right calf with fat layer exposed: CODE(S): L97.212 - Non-pressure chronic ulcer of right calf with fat layer exposed (2) Venous insufficiency (chronic) (peripheral): CODE(S): I87.2 - Venous insufficiency (chronic) (peripheral) (3) Surgical wound dehiscence: CODE(S): T81.31XA - Disruption of external operation (surgical) wound, not elsewhere classified, initial encounter (4) Peroneal tendinitis, right leg: CODE(S): M76.71 - Peroneal tendinitis, right leg (5) Injury of peroneal tendon of right foot: CODE(S): S86.301A - Unspecified injury of muscle(s) and tendon(s) of peroneal muscle group at lower leg level, right leg, initial encounter (6) Rupture of ligament of right ankle: CODE(S): S93.401A - Sprain of unspecified ligament of right ankle, initial encounter (7) Syndesmotic disruption of right ankle: CODE(S): S93.431A - Sprain of tibiofibular ligament of right ankle, initial encounter (8) Pain in right lower leg: CODE(S): M79.661 - Pain in right lower leg (9) Non-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: CODE(S): L97.312 - Non-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 PLAN: Plan Patient seen and evaluated She presents today postoperatively s/p primary repair of split tear of peroneal brevis tendon, primary repair of anterior tibiofibular ligament (AITFL), and syndesmotic reduction via tight rope DOS 04/24/2023, POD #111 States pain to her right lateral ankle is continuing to improve she is continuing weight bearing to the Right foot. Denies calf pain today. Does admit to some upper leg pain where she did have dehiscence of her surgical incision site of the proximal portion of her lateral leg incision, but this is continuing to improve. She reports this did begin to open up on 06/02/2023 following lower extremity swelling secondary to her chronic venous insufficiency. She reports she was having difficulty with the Tubigrip compression which did allow for more leg swelling and opening of her surgical incision site. Dehiscence occurred 2 weeks following the removal of her sutures. Denies calf pain today. Negative Robertson sign & Negative Ro's sign. Does have some tenderness about wound site on lateral leg which is continuing to improve, and tenderness to the medial ankle with ulceration secondary to her autoimmune response. She has remained protective weightbearing to the right lower extremity with surgical shoe. Does admit to utilizing the assistance of a knee scooter at times. She has continued weightbearing in a surgical shoe as she does state the CAM boot does rub on the wound site causing some discomfort. States this is going well but does admit to some stiff feeling of the ankle but does expect this following surgery. States it is improving. Discussed transition to supportive shoe gear again today. Encouraged continued ambulation in supportive shoe gear vs surgical shoe Dressings were removed today and site was inspected. Anterior lateral ankle demonstrates well-healed cicatrix. Lateral ankle demonstrates well-healed cicatrix distally and proximally surgical dehiscence of wound with underlying ulceration. Ulceration did undergo debridement as noted in the clinical panel above. Ulceration measures 1.3 cm x 0.6 cm x 0.1 cm. Medial ankle ulceration measures 0.7 cm x 0.5 cm x 0.1 cm. Donated amnionic graft was applied to wound bed today. Sites was dressed with Adaptic touch and anchored with Steri-Strips. Instructed to change outer dressings as needed and to not get the site wet. Tubigrip compression stocking applied to the lower extremity. She was also encouraged to transition to full weightbearing to the right lower extremity in supportive shoe gear and elevate lower extremity at all times of rest for edema control. There is a slight increase in size of the ulceration versus previous visit. Overall is healing well. She is discussing with Rheumatology and Operations Consultant utilizing new medication once wound is healed. Patient is currently on immunosuppressant agents for autoimmune disease and Due to some pain about the ulcerative site and medial ankle we will empirically start her on oral antibiotic. Rx Augmentin 875 mg twice daily x 14 days. Stop date 07/09/2023. She did go to ED for some medial ankle pain on 07/01/2023 they did give dose of IV Vanco/Zosyn. Discussed finishing this antibiotic and due to recent cultures from ED visit on 07/01/23 demonstrating +1 Staph aureus. Discussed new antibiotic to be started, doxycycline 100 mg twice daily x 4 weeks (stop date 07/30/23) due to her autoimmune disease and taking suppressive agents her antibiotic course will be extended to allow for resolution and clearance. She does admit to some occasional nausea with the antibiotic and thus she will be started on Zofran 4mg tablets as needed. She does admit to taking some Zofran for her nausea following treatments for autoimmune disease. Discussed adequate protein intake to aid in wound healing. Oscar supplementation recommended. Discussed continuing range of motion exercises while nonweightbearing, including working with resistance bands to increase lower extremity strength. Discussed as wound nears closure physical therapy will be implemented to improve strength and motion to the right lower extremity. Discussed at this time to transition to supportive shoe gear to the right lower extremity. Discussed weight bearing in supportive shoe gear today. Discussed once wound has healed we will begin physical therapy to increase strength and flexibility of the right lower extremity. Discussed continuing local wound care with plans to apply for EpiFix graft for application at next visit, awaiting approval. At this time overall prognosis is good but complicated due to surgical dehiscence at the most proximal incision site secondary to chronic venous insufficiency, lower extremity edema, and autoimmune disease. We will continue local wound care at this time. Venous studies were performed 07/09/2023, no evidence of DVT. Valvular competence appears intact within the proximal deep venous system bilaterally. Great saphenous vein appears bilaterally patent and compressible segmentally. Saphenofemoral junctions are bilaterally competent. There is segmental valvular incompetence noted in the great saphenous veins bilaterally small saphenous veins patent and competent on the right and patent and incompetent on the left. There are several incompetent accessory saphenous veins and tributaries in the right lower extremity and 2 accessory saphenous veins of the left calf are incompetent. Discussed signs and symptoms of infection. Discussed with her if she notices increasing redness about the ulcerative site that moves up the leg, purulent drainage from the ulcerative site, increasing foul odor from the ulcerative site, or if she develops fever greater than 101 degree, develops nausea, vomiting, chills, these are signs of a progressing infection and she should report to the ED for IV antibiotics. She voices understanding of this today. The following work up and care recommendations were made: Dressing: Donated amnionic graft, Adaptic touch, Steri-Strips. Dry sterile dressing. May change outer dressings as needed Wash: Do not get site wet Tissue growth optimization: Donated amnionic graft Offload: To transition to full weightbearing to the right lower extremity in supportive shoe gear. foot. Patient was previously in CAM boot until surgical wound dehiscence. Transitioned back to surgical shoe to allow for decreased pressure at the wound site on the leg. Vascular: DP and PT pulses palpable with adequate capillary fill time to digits. Edema: Patient does have chronic venous insufficiency with bilateral lower extremity edema. Tubigrip compression is applied. Once wound is closed she will return to her prescription compression stockings. Infection: No signs of infection. Pain: May take [id number] Tylenol for discomfort Host factors: Chronic venous insufficiency, autoimmune disease I answered all the patient's questions. To return to the wound healing center in 1 week or call sooner if the patient has any questions or concerns. Will RTC for continued wound healing and postoperative care s/p primary repair of split tear of peroneal brevis tendon, primary repair of anterior tibiofibular ligament (AITFL), and syndesmotic repair via tight rope right lower extremity.
[2023-08-20 11:05] VITALS: BP 152/89; PULSE 94; RESP 18
--- NOTE | 2023-08-20 12:45 | PCM.WC.PN ---
History of Present Illness Date of Service: 08/20/23 Chief Complaint: Surgical wound dehiscence right leg History of Wound: Patient is a 38-year-old female who subsequently developed a surgical wound dehiscence of her right lateral lower extremity. She previously underwent surgery for primary repair of split tear of the peroneus brevis tendon, primary repair of anterior tibiofibular ligament (AITFL), and syndesmotic reduction via tight rope of the right lower extremity on 04/24/2023. Following removal of sutures she developed surgical wound dehiscence secondary to continued lower extremity swelling via chronic venous insufficiency. She did undergo debridement in office 06/05/2023 and Deidre was applied at this time with Tubigrip compression. She has worn compression stockings to manage lower extremity swelling prior to surgical intervention. Patient is also noted to have autoimmune disease and is managed by rheumatology with medication and did resume all medications 2 weeks post operative per rheumatology. She was referred to the wound care center for continued wound healing. She has been applying Deidre and dry sterile dressings daily. She denies N/V/F/chills. Denies further complaints. Subjective Subjective Patient is a 38-year-old female who presents to the wound care center today for follow-up of a right lateral leg surgical dehiscence s/p repair of split tear of peroneal brevis tendon, AITFL ligament repair, and syndesmotic repair of the right ankle. She had left dressings in place with donated graft in wound bed, has been changing outer dressings as needed. She reports she is continuing to walk with the surgical shoe in her apartment but is again assisted by knee scooter at visit today. She is continuing to work with resistance bands at home and doing home exercises to increase strength to lower extremity. She denies constitutional symptoms today. Denies further complaints today. Objective Data Objective Data Vital Signs: Vital Signs Temp Pulse Resp BP O2 Del Method 97.9 F 94 18 152/89 H Room Air 08/06/23 10:28 08/20/23 11:05 08/20/23 11:05 08/20/23 11:05 08/20/23 11:05 Oxygen Delivery Method Room Air Physical Exam Const alert, oriented x3, no apparent distress and well nourished General Appearance: cooperative HEENT normocephalic Eyes General Eye: normal appearance of both eyes Neck General: normal visual inspection Lymph Lymphatic: no lymphadenopathy noted and no lymphedema noted Resp normal respiratory effort Cardio regular rate and regular rhythm Extremity normal capillary refill, no joint enlargement, no calf tenderness and no pedal edema Extremity Narrative: DP and PT pulses palpable bilateral. Capillary fill time less than 3 seconds to digits bilateral. Dermatological: There is bilateral lower extremity edema secondary to chronic venous stasis with some hemosiderin deposition noted about the right lower extremity. There is a surgical dehiscence of the proximal incision on the right lower extremity with subsequent ulceration. Ulceration demonstrates mixed fibrogranular layer with some serosanguineous drainage. Surrounding skin does have rubor secondary to chronic venous stasis in addition to autoimmune disease. Ulceration demonstrates no signs of infection. Distal aspect of the incision right lateral leg is a well-healed cicatrix. Anterior lateral leg demonstrates well-healed cicatrix. No signs of infection. Medial ankle wound secondary to autoimmune response with rubor noted with some tenderness to palpation. Musculoskeletal: Muscle strength 5 of 5 age-appropriate. No pain to palpation about the lateral leg of the right lower extremity. Skin no rashes or lesions noted, skin turgor normal and no jaundice Neuro moves all extremities Debridement Note Debridement Note Wound debrided: Right lower extremity x 2 Laterality: Right Wound Grade/Stage: Maciel stage I Type of Debridement: Excisional debridement Anesthesia Used: 5% Lidocaine Gel Depth: Down to and including healthy tissue and in the subcutaneous layer Percentage of wound debrided: 100 Instrument Used: 3mm curette Tissue Removed: Fibrous, devitalized subcutaneous, biofilm, slough Severity: Fat Layer Exposed Amount of bleeding with debridement: Mild Bleeding Controlled with: Compression and gauze Patient tolerated procedure: Patient tolerated procedure well Post-Debridement Measurements and Additional Note: Post-Debridement Measurements/Treatment - Nurse 1 - General Ulcer Assessment Start: 07/23/23 09:46 Freq: Status: Active Protocol: LAURIE Activity Type Activity Date Activity User E-sign Co-sign Detail Recorded Client Recorded Date Recorded By Document 07/23/23 09:47 KW Desktop 07/23/23 10:02 KW Document 07/30/23 10:02 KW Desktop 07/30/23 10:16 KW Document 08/06/23 10:28 KW Desktop 08/06/23 10:42 KW Document 08/13/23 10:06 KW Desktop 08/13/23 10:16 KW Document 08/20/23 11:05 DL Desktop 08/20/23 11:15 DL 07/23/23 07/30/23 08/06/23 09:47 10:02 10:28 - Today's Visit Information Type of service Follow-up Visit Follow-up Visit Follow-up Visit (Physician/LATIN TEACHER (Physician/LATIN TEACHER (Physician/LATIN TEACHER ) ) ) Arrival Mode Ambulatory, Ambulatory, Ambulatory Other Other Arrival Mode (Other) KNEE SCOOTER KNEE ROLLER Patient Identification Verified (Name & Yes Yes Yes ) Vital Signs Temperature (97.8 F-99.1 F) 97.8 F 97.9 F Temperature Source Temporal Temporal Pulse Rate (60-100) 103 H 98 100 Pulse Location Monitor Monitor Monitor Respiratory Rate (12-18) 18 18 16 Respiratory rate source Observation Observation Observation Oxygen Delivery Method Room Air Room Air Room Air Blood Pressure (90/60-120/80) 143/92 H 127/87 H 131/89 H Blood Pressure Mean (mm Hg) 109 100 103 Source Monitor Monitor Monitor Position Semi-Fowlers Semi-Fowlers Sitting Blood Pressure Location Right Forearm Left Arm Left Forearm History Since Last Visit- (Skip if this is Patient's initial visit) Have you changed medications since your No No No last visit? Any new allergies or adverse reactions No No No Had a fall/change in ADL's that may No No No increase risk of falls Signs or symptoms of abuse and/or No No No neglect since last visit Have you been in the hospital since your No No No last visit? Has dressing in place as prescribed Yes Yes Yes Has compression in place as prescribed Yes Yes Yes Has offloadiing in place as prescribed Yes No Yes Experienced any changes in pain level or No No No management Left Footwear Regular Shoe Regular Shoe Regular Shoe Right Footwear Surgical Shoe Surgical Shoe Surgical Shoe with pressure with pressure with pressure relief insole relief insole relief insole Pain Scale: 0-10 Numeric Is Patient Pain Free? Yes Yes Yes 08/13/23 08/20/23 10:06 11:05 - Today's Visit Information Type of service Follow-up Visit Follow-up Visit (Physician/LATIN TEACHER (Physician/LATIN TEACHER ) ) Arrival Mode Ambulatory Ambulatory Arrival Mode (Other) Patient Identification Verified (Name & Yes Yes ) Vital Signs Temperature (97.8 F-99.1 F) Temperature Source Pulse Rate (60-100) 90 94 Pulse Location Monitor Monitor Respiratory Rate (12-18) 18 18 Respiratory rate source Observation Observation Oxygen Delivery Method Room Air Room Air Blood Pressure (90/60-120/80) 145/80 H 152/89 H Blood Pressure Mean (mm Hg) 101 110 Source Monitor Monitor Position Semi-Fowlers Semi-Fowlers Blood Pressure Location Left Arm Left Arm History Since Last Visit- (Skip if this is Patient's initial visit) Have you changed medications since your No No last visit? Any new allergies or adverse reactions No No Had a fall/change in ADL's that may No No increase risk of falls Signs or symptoms of abuse and/or No No neglect since last visit Have you been in the hospital since your No No last visit? Has dressing in place as prescribed Yes Yes Has compression in place as prescribed Yes Yes Has offloadiing in place as prescribed Yes Yes Experienced any changes in pain level or No No management Left Footwear Regular Shoe Regular Shoe Right Footwear Surgical Shoe Surgical Shoe with pressure with pressure relief insole relief insole Pain Scale: 0-10 Numeric Is Patient Pain Free? Yes Yes WC - Nurse 1 - General Ulcer Measurement Start: 07/23/23 09:46 Freq: Status: Active Protocol: Activity Type Activity Date Activity User E-sign Co-sign Detail Recorded Client Recorded Date Recorded By Document 07/23/23 09:47 KW Desktop 07/23/23 10:02 KW Document 07/30/23 10:02 KW Desktop 07/30/23 10:16 KW Document 08/06/23 10:28 KW Desktop 08/06/23 10:42 KW Document 08/13/23 10:06 KW Desktop 08/13/23 10:16 KW Document 08/20/23 11:05 DL Desktop 08/20/23 11:15 DL 07/23/23 07/30/23 08/06/23 09:47 10:02 10:28 Wound Center Nurse 1 #2 RT MED ANKLE -Current Size (cm) - Length 0.1 0.7 -Current Size (cm) - Width 0.1 0.7 -Current Size (cm) - Depth 0.1 0.1 -Total Square Cm 0.01 0.49 -Date of Last Picture (Recall this 07/30/23 field) -Photo Taken Yes -Exudate Amt Small Small -Exudate Type Serosanguineous Serosanguineous -Wound Margin Indistinct, Non -Visible -Granulation Amt Large (67-100%) -Granulation Quality Red -Necrosis Amt -Necrotic Tissue Type -Structure Exposed -Texture (Meghan-wound Skin Appearance) Assessed Assessed, Localized Edema -Moisture (Meghan-wound Skin Appearance) Assessed Assessed -Color (Meghan-wound Skin Appearance) Erythema Erythema -Temperature (Meghan-wound Skin No Abnormality Appearance) (Pt Warm) -Tenderness on Palpation (Meghan-wound Skin Appearance) -Ulcer Cleansing Soap and Water Soap and Water -Foul Odor after Cleansing -Anesthetic Used 5% Lidocaine 5% Lidocaine Gel Gel -Wound Comment(s) BLISTER #1 RT LAT ANKLE CLUSTER -Current Size (cm) - Length 1.5 1.3 1.8 -Current Size (cm) - Width 0.6 0.5 0.9 -Current Size (cm) - Depth 0.3 0.1 0.1 -Total Square Cm 0.90 0.65 1.62 -Date of Last Picture (Recall this 07/23/23 07/30/23 field) -Photo Taken Yes Yes -Exudate Amt Small Medium -Exudate Type Serosanguineous Serosanguineous Serosanguineous -Wound Margin Distinct, Distinct, Distinct, Outline Outline Outline Attached Attached Attached -Granulation Amt Small (1-33%) Large (67-100%) Large (67-100%) -Granulation Quality Red Red Red -Necrosis Amt Large (67-100%) Small (1-33%) -Necrotic Tissue Type Adherent Slough Adherent Slough -Structure Exposed -Texture (Meghan-wound Skin Appearance) Assessed, Localized Edema Assessed, Localized Edema Localized Edema -Moisture (Meghan-wound Skin Appearance) Assessed Assessed,Dry/ Assessed Scaly -Color (Meghan-wound Skin Appearance) Assessed, Assessed, Assessed, Erythema Erythema Erythema -Temperature (Meghan-wound Skin No Abnormality No Abnormality Appearance) (Pt Warm) (Pt Warm) -Tenderness on Palpation (Meghan-wound Skin Appearance) -Ulcer Cleansing Soap and Water Soap and Water Soap and Water -Foul Odor after Cleansing -Anesthetic Used 5% Lidocaine 5% Lidocaine 5% Lidocaine Gel Gel Gel Right Calf (cm) 42 42.5 Right Ankle (cm) 31.5 31 08/13/23 08/20/23 10:06 11:05 Wound Center Nurse 1 #2 RT MED ANKLE -Current Size (cm) - Length 0.9 0.5 -Current Size (cm) - Width 0.8 0.5 -Current Size (cm) - Depth 0.1 0.1 -Total Square Cm 0.72 0.25 -Date of Last Picture (Recall this field) -Photo Taken Yes -Exudate Amt Small Small -Exudate Type Serosanguineous Serosanguineous -Wound Margin Distinct, Distinct, Outline Outline Attached Attached -Granulation Amt Medium (34-66%) -Granulation Quality Red Red -Necrosis Amt Medium (34-66%) -Necrotic Tissue Type Adherent Slough -Structure Exposed N/A -Texture (Meghan-wound Skin Appearance) Assessed, Localized Edema Localized Edema -Moisture (Meghan-wound Skin Appearance) Assessed Weeping -Color (Meghan-wound Skin Appearance) Assessed, Erythema Erythema -Temperature (Meghan-wound Skin No Abnormality No Abnormality Appearance) (Pt Warm) (Pt Warm) -Tenderness on Palpation (Meghan-wound Yes Skin Appearance) -Ulcer Cleansing Soap and Water Soap and Water -Foul Odor after Cleansing No -Anesthetic Used 5% Lidocaine 5% Lidocaine Gel Gel -Wound Comment(s) #1 RT LAT ANKLE CLUSTER -Current Size (cm) - Length 1.8 1.5 -Current Size (cm) - Width 1 0.6 -Current Size (cm) - Depth 0.1 0.1 -Total Square Cm 1.8 0.90 -Date of Last Picture (Recall this field) -Photo Taken Yes -Exudate Amt Medium Medium -Exudate Type Serosanguineous Serosanguineous -Wound Margin Distinct, Distinct, Outline Outline Attached Attached -Granulation Amt Medium (34-66%) Medium (34-66%) -Granulation Quality Hyper- Red granulation -Necrosis Amt Medium (34-66%) -Necrotic Tissue Type Adherent Slough -Structure Exposed N/A -Texture (Meghan-wound Skin Appearance) Assessed, Localized Edema Localized Edema ,Scarring -Moisture (Meghan-wound Skin Appearance) Assessed Weeping -Color (Meghan-wound Skin Appearance) Assessed, Erythema Erythema -Temperature (Meghan-wound Skin No Abnormality No Abnormality Appearance) (Pt Warm) (Pt Warm) -Tenderness on Palpation (Meghan-wound Yes Skin Appearance) -Ulcer Cleansing Soap and Water Soap and Water -Foul Odor after Cleansing No -Anesthetic Used 5% Lidocaine 5% Lidocaine Gel Gel Right Calf (cm) 41.9 41 Right Ankle (cm) 29.3 29.2 WC - Nurse 2 - General Ulcer CM Notes Start: 07/23/23 09:46 Freq: Status: Active Protocol: Activity Type Activity Date Activity User E-sign Co-sign Detail Recorded Client Recorded Date Recorded By Document 07/23/23 11:14 PL [id number] 07/23/23 11:16 PL Document 07/30/23 12:07 PL [id number] 07/30/23 12:08 PL Document 08/06/23 11:49 PL [id number] 08/06/23 11:51 PL Document 08/13/23 16:00 PL [id number] 08/13/23 16:01 PL Document 08/20/23 11:56 PL [id number] 08/20/23 11:57 PL 07/23/23 07/30/23 08/06/23 11:14 12:07 11:49 Wound Center Nurse 2 #2 RT MED ANKLE -Time 10:20 10:54 -Correct Patient Yes Yes -Correct Side, Site, Position Yes Yes -Correct Procedure Yes Yes -Procedure Performed Yes Yes -Type of Procedure Debridement Debridement -Clinical Debridement Subcutaneous Subcutaneous -Tissue Removed Subcutaneous Subcutaneous -Post Debridement (cm) - Length 1.1 0.5 -Post Debridement (cm) - Width 0.6 0.5 -Post Debridement (cm) - Depth 0.1 0.1 -Total Square (Post) (cm) 0.66 0.25 -Area of Debridement (cm) - Length 1.1 0.5 -Area of Debridement (cm) - Width 0.6 0.5 -Total Square (Area) (cm) 0.66 0.25 -Tunneling No No -Undermining/Tunneling No No -Circular Undermining No No -Wound/Ulcer Outcome Not Healed Not Healed -Ulcer Cleansing Rinsed/ Rinsed/ Irrigated with Irrigated with Saline Saline -Foul Odor after Cleansing No No -Bioengineered Tissue No No -Bleeding Controlled with Pressure, Pressure SURGIFOAM -Treatment Response Procedure Procedure Tolerated Well Tolerated Well -Debridement - Subq, 1st 20sq cm Yes Yes #1 RT LAT ANKLE CLUSTER -Time 10:10 10:54 -Correct Patient Yes Yes -Correct Side, Site, Position Yes Yes -Correct Procedure Yes Yes -Procedure Performed Yes Yes -Type of Procedure Debridement Debridement -Clinical Debridement Subcutaneous Subcutaneous -Tissue Removed Subcutaneous Subcutaneous -Post Debridement (cm) - Length 1.5 1.4 -Post Debridement (cm) - Width 0.3 0.7 -Post Debridement (cm) - Depth 0.1 -Total Square (Post) (cm) 0.45 0.98 -Area of Debridement (cm) - Length 1.5 1.4 -Area of Debridement (cm) - Width 0.3 0.7 -Total Square (Area) (cm) 0.45 0.98 -Tunneling No No -Undermining/Tunneling No No -Circular Undermining No No -Wound/Ulcer Outcome Not Healed Not Healed -Ulcer Cleansing Rinsed/ Rinsed/ Irrigated with Irrigated with Saline Saline -Foul Odor after Cleansing No No -Bioengineered Tissue Yes No -Expiration Date 07/28/24 -Product Lot Number [id number] Matrion -Percent Used 100 -Bleeding Controlled with Pressure Pressure -Treatment Response Procedure Procedure Tolerated Well Tolerated Well -Debridement - Subq, 1st 20sq cm Yes No Pain Scale: 0-10 Numeric Is Patient Pain Free? Yes Yes Yes 08/13/23 08/20/23 16:00 11:56 Wound Center Nurse 2 #2 RT MED ANKLE -Time 10:22 11:23 -Correct Patient Yes Yes -Correct Side, Site, Position Yes Yes -Correct Procedure Yes Yes -Procedure Performed Yes Yes -Type of Procedure Debridement Debridement -Clinical Debridement Subcutaneous Subcutaneous -Tissue Removed Subcutaneous Subcutaneous -Post Debridement (cm) - Length 0.7 0.5 -Post Debridement (cm) - Width 0.5 0.4 -Post Debridement (cm) - Depth 0.1 0.1 -Total Square (Post) (cm) 0.35 0.20 -Area of Debridement (cm) - Length 0.7 0.5 -Area of Debridement (cm) - Width 0.5 0.4 -Total Square (Area) (cm) 0.35 0.20 -Tunneling No No -Undermining/Tunneling No No -Circular Undermining No No -Wound/Ulcer Outcome Not Healed Not Healed -Ulcer Cleansing Rinsed/ Rinsed/ Irrigated with Irrigated with Saline Saline -Foul Odor after Cleansing No No -Bioengineered Tissue No No -Bleeding Controlled with Pressure Pressure -Treatment Response Procedure Procedure Tolerated Well Tolerated Well -Debridement - Subq, 1st 20sq cm Yes No #1 RT LAT ANKLE CLUSTER -Time 10:22 11:23 -Correct Patient Yes Yes -Correct Side, Site, Position Yes Yes -Correct Procedure Yes Yes -Procedure Performed Yes Yes -Type of Procedure Debridement Debridement -Clinical Debridement Subcutaneous Subcutaneous -Tissue Removed Subcutaneous Subcutaneous -Post Debridement (cm) - Length 1.3 1.6 -Post Debridement (cm) - Width 0.6 0.8 -Post Debridement (cm) - Depth 0.1 0.1 -Total Square (Post) (cm) 0.78 1.28 -Area of Debridement (cm) - Length 1.3 1.6 -Area of Debridement (cm) - Width 0.6 0.8 -Total Square (Area) (cm) 0.78 1.28 -Tunneling No No -Undermining/Tunneling No No -Circular Undermining No No -Wound/Ulcer Outcome Not Healed Not Healed -Ulcer Cleansing Rinsed/ Rinsed/ Irrigated with Irrigated with Saline Saline -Foul Odor after Cleansing No No -Bioengineered Tissue No No -Expiration Date -Product Lot Number -Percent Used -Bleeding Controlled with Pressure Pressure -Treatment Response Procedure Procedure Tolerated Well Tolerated Well -Debridement - Subq, 1st 20sq cm No Yes Pain Scale: 0-10 Numeric Is Patient Pain Free? Yes Yes WC - Nurse 3 - General Ulcer D/C NN Start: 07/23/23 09:46 Freq: Status: Active Protocol: Activity Type Activity Date Activity User E-sign Co-sign Detail Recorded Client Recorded Date Recorded By Document 07/23/23 10:22 KW Desktop 07/23/23 10:22 KW Document 08/06/23 11:22 DL Desktop 08/06/23 11:23 DL Document 08/13/23 10:57 KW Desktop 08/13/23 10:58 KW Document 08/20/23 11:48 KW Desktop 08/20/23 11:50 KW 07/23/23 08/06/23 08/13/23 10:22 11:22 10:57 Wound Care Center Nurse 3 #2 RT MED ANKLE -Foul Odor after Cleansing No -Other Dressing Epifix -Primary Dressing Covered/Secured with Dry Gauze & Dry Gauze & Roll Gauze, Roll Gauze, Secured with Secured with Tape Tape #1 RT LAT ANKLE CLUSTER -Foul Odor after Cleansing No -Other Dressing epifix -Primary Dressing Covered/Secured with Dry Gauze & Dry Gauze & Dry Gauze & Roll Gauze, Roll Gauze, Roll Gauze, Secured with Secured with Secured with Tape Tape Tape Right -Tubular Bandage Single Layer Single Layer Single Layer -Size of Tubigrip Used Size E Size D Size E -Size D ($) 1 -Size E ($) 1 1 Treatment Response Procedure Tolerated Well Pain Scale: 0-10 Numeric Is Patient Pain Free? Yes Yes Yes WC - Visit Discharge Discharge Condition Stable Stable Stable Ambulatory Status Ambulatory Ambulatory, Ambulatory Walker Transportation Private Auto [facility] Medication Reconcilliation completed & No No provided to patient/care provider Clinical Summary of Care Provided Yes Yes Notes: PT USES A KNEE PT USES A KNEE ROLLER ROLLER Facility Type Home Health Orders Sent Yes 08/20/23 11:48 Wound Care Center Nurse 3 #2 RT MED ANKLE -Foul Odor after Cleansing No -Other Dressing Epifix -Primary Dressing Covered/Secured with Dry Gauze & Roll Gauze, Secured with Tape #1 RT LAT ANKLE CLUSTER -Foul Odor after Cleansing No -Other Dressing Epifix -Primary Dressing Covered/Secured with Dry Gauze & Roll Gauze, Secured with Tape Right -Tubular Bandage Single Layer -Size of Tubigrip Used Size E -Size D ($) -Size E ($) 1 Treatment Response Procedure Tolerated Well Pain Scale: 0-10 Numeric Is Patient Pain Free? Yes WC - Visit Discharge Discharge Condition Stable Ambulatory Status Ambulatory, Walker Transportation Private Auto Medication Reconcilliation completed & provided to patient/care provider Clinical Summary of Care Provided Notes: Facility Type Orders Sent Assessment/Plan Assessment/Plan (1) Non-pressure chronic ulcer of right calf with fat layer exposed: CODE(S): L97.212 - Non-pressure chronic ulcer of right calf with fat layer exposed (2) Venous insufficiency (chronic) (peripheral): CODE(S): I87.2 - Venous insufficiency (chronic) (peripheral) (3) Surgical wound dehiscence: CODE(S): T81.31XA - Disruption of external operation (surgical) wound, not elsewhere classified, initial encounter (4) Peroneal tendinitis, right leg: CODE(S): M76.71 - Peroneal tendinitis, right leg (5) Injury of peroneal tendon of right foot: CODE(S): S86.301A - Unspecified injury of muscle(s) and tendon(s) of peroneal muscle group at lower leg level, right leg, initial encounter (6) Rupture of ligament of right ankle: CODE(S): S93.401A - Sprain of unspecified ligament of right ankle, initial encounter (7) Syndesmotic disruption of right ankle: CODE(S): S93.431A - Sprain of tibiofibular ligament of right ankle, initial encounter (8) Pain in right lower leg: CODE(S): M79.661 - Pain in right lower leg (9) Non-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: CODE(S): L97.312 - Non-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 States pain to her right lateral ankle is continuing to improve she is continuing weight bearing to the Right foot. Denies calf pain today. Does admit to some upper leg pain where she did have dehiscence of her surgical incision site of the proximal portion of her lateral leg incision, but this is continuing to improve. She reports this did begin to open up on 06/02/2023 following lower extremity swelling secondary to her chronic venous insufficiency. She reports she was having difficulty with the Tubigrip compression which did allow for more leg swelling and opening of her surgical incision site. Dehiscence occurred 2 weeks following the removal of her sutures. Denies calf pain today. Negative Robertson sign & Negative Ro's sign. Does have some tenderness about wound site on lateral leg which is continuing to improve, and tenderness to the medial ankle with ulceration secondary to her autoimmune response. She has remained protective weightbearing to the right lower extremity with surgical shoe. Does admit to utilizing the assistance of a knee scooter at times. She has continued weightbearing in a surgical shoe as she does state the CAM boot does rub on the wound site causing some discomfort. States this is going well but does admit to some stiff feeling of the ankle but does expect this following surgery. States it is improving. Discussed transition to supportive shoe gear again today. Encouraged continued ambulation in supportive shoe gear vs surgical shoe Dressings were removed today and site was inspected. Anterior lateral ankle demonstrates well-healed cicatrix. Lateral ankle demonstrates well-healed cicatrix distally and proximally surgical dehiscence of wound with underlying ulceration. Ulceration did undergo debridement as noted in the clinical panel above. Ulceration measures 1.6 cm x 0.8 cm x 0.1 cm. Medial ankle ulceration measures 0.5 cm x 0.4 cm x 0.1 cm. Donated amnionic graft was applied to wound bed today. Sites was dressed with Adaptic touch and anchored with Steri-Strips. Instructed to change outer dressings as needed and to not get the site wet. Tubigrip compression stocking applied to the lower extremity. She was also encouraged to transition to full weightbearing to the right lower extremity in supportive shoe gear and elevate lower extremity at all times of rest for edema control. There is a slight increase in size of the ulceration versus previous visit at lateral leg. She is discussing with Rheumatology and Liquid [employer] utilizing new medication once wound is healed. Patient is currently on immunosuppressant agents for autoimmune disease and Due to some pain about the ulcerative site and medial ankle we will empirically start her on oral antibiotic. Rx Augmentin 875 mg twice daily x 14 days. Stop date 07/09/2023. She did go to ED for some medial ankle pain on 07/01/2023 they did give dose of IV Vanco/Zosyn. Discussed finishing this antibiotic and due to recent cultures from ED visit on 07/01/23 demonstrating +1 Staph aureus. Discussed new antibiotic to be started, doxycycline 100 mg twice daily x 4 weeks (stop date 07/30/23) due to her autoimmune disease and taking suppressive agents her antibiotic course will be extended to allow for resolution and clearance. She does admit to some occasional nausea with the antibiotic and thus she will be started on Zofran 4mg tablets as needed. She does admit to taking some Zofran for her nausea following treatments for autoimmune disease. Discussed adequate protein intake to aid in wound healing. Oscar supplementation recommended. Discussed continuing range of motion exercises while nonweightbearing, including working with resistance bands to increase lower extremity strength. Discussed as wound nears closure physical therapy will be implemented to improve strength and motion to the right lower extremity. Discussed at this time to transition to supportive shoe gear to the right lower extremity. Discussed weight bearing in supportive shoe gear today. Discussed once wound has healed we will begin physical therapy to increase strength and flexibility of the right lower extremity. Discussed continuing local wound care with plans to apply for EpiFix graft for application at next visit, still awaiting approval by insurance. It should be noted advanced wound care product will greatly improve her healing as she is immunocompromised secondary to immunosuppressive agents for her autoimmune disease. This product is necessary for healing of her wounds. At this time overall prognosis is good but complicated due to surgical dehiscence at the most proximal incision site secondary to chronic venous insufficiency, lower extremity edema, and autoimmune disease. We will continue local wound care at this time. Venous studies were performed 07/09/2023, no evidence of DVT. Valvular competence appears intact within the proximal deep venous system bilaterally. Great saphenous vein appears bilaterally patent and compressible segmentally. Saphenofemoral junctions are bilaterally competent. There is segmental valvular incompetence noted in the great saphenous veins bilaterally small saphenous veins patent and competent on the right and patent and incompetent on the left. There are several incompetent accessory saphenous veins and tributaries in the right lower extremity and 2 accessory saphenous veins of the left calf are incompetent. Discussed signs and symptoms of infection. Discussed with her if she notices increasing redness about the ulcerative site that moves up the leg, purulent drainage from the ulcerative site, increasing foul odor from the ulcerative site, or if she develops fever greater than 101 degree, develops nausea, vomiting, chills, these are signs of a progressing infection and she should report to the ED for IV antibiotics. She voices understanding of this today. The following work up and care recommendations were made: Dressing: Donated amnionic graft, Adaptic touch, Steri-Strips. Dry sterile dressing. May change outer dressings as needed Wash: Do not get site wet Tissue growth optimization: Donated amnionic graft Offload: To transition to full weightbearing to the right lower extremity in supportive shoe gear. foot. Patient was previously in CAM boot until surgical wound dehiscence. Transitioned back to surgical shoe to allow for decreased pressure at the wound site on the leg. Vascular: DP and PT pulses palpable with adequate capillary fill time to digits. Edema: Patient does have chronic venous insufficiency with bilateral lower extremity edema. Tubigrip compression is applied. Once wound is closed she will return to her prescription compression stockings. Infection: No signs of infection. Pain: May take [id number] Tylenol for discomfort Host factors: Chronic venous insufficiency, autoimmune disease I answered all the patient's questions. To return to the wound healing center in 1 week or call sooner if the patient has any questions or concerns. Will RTC for continued wound healing and postoperative care s/p primary repair of split tear of peroneal brevis tendon, primary repair of anterior tibiofibular ligament (AITFL), and syndesmotic repair via tight rope right lower extremity.
== END 2023-08-20 23:59 | disposition home or self-care (01) ==
LOC: WC 11:00
PROVIDERS: PCP Internal Medicine; Referring Provider Student in an Organized Health Care Education/Training Program; Visit Provider Student in an Organized Health Care Education/Training Program
DX: T81.31XA Disruption of external operation (surgical) wound, not elsewhere classified, initial encounter (principal); L97.212 Non-pressure chronic ulcer of right calf with fat layer exposed; Y83.8 Other surgical procedures as the cause of abnormal reaction of the patient, or of later complication, without mention of misadventure at the time of the procedure; I87.2 Venous insufficiency (chronic) (peripheral); Z79.82 Long term (current) use of aspirin; Z79.899 Other long term (current) drug therapy
CPT/HCPCS: 11042

== ENCOUNTER 2023-09-10 11:00 | Outpatient (RCR) | payer MEDICARE, MEDICAID, SELFPAY ==
[2023-08-21 00:26] VITALS: BP 152/89; PULSE 94; RESP 18; TEMP 36.6
--- NOTE | 2023-08-27 10:58 | PCM.WC.PN ---
History of Present Illness Date of Service: 08/27/23 Chief Complaint: Surgical wound dehiscence right leg History of Wound: Patient is a 38-year-old female who subsequently developed a surgical wound dehiscence of her right lateral lower extremity. She previously underwent surgery for primary repair of split tear of the peroneus brevis tendon, primary repair of anterior tibiofibular ligament (AITFL), and syndesmotic reduction via tight rope of the right lower extremity on 04/24/2023. Following removal of sutures she developed surgical wound dehiscence secondary to continued lower extremity swelling via chronic venous insufficiency. She did undergo debridement in office 06/05/2023 and Deidre was applied at this time with Tubigrip compression. She has worn compression stockings to manage lower extremity swelling prior to surgical intervention. Patient is also noted to have autoimmune disease and is managed by rheumatology with medication and did resume all medications 2 weeks post operative per rheumatology. She was referred to the wound care center for continued wound healing. She has been applying Deidre and dry sterile dressings daily. She denies N/V/F/chills. Denies further complaints. Subjective Subjective Patient is a 38-year-old female who presents to the wound care center today for follow-up of a right lateral leg surgical dehiscence s/p repair of split tear of peroneal brevis tendon, AITFL ligament repair, and syndesmotic repair of the right ankle. She had left dressings in place with donated graft in wound bed, has been changing outer dressings as needed. She reports she is continuing to walk with the surgical shoe in her apartment but is again assisted by knee scooter at visit today. She is continuing to work with resistance bands at home and doing home exercises to increase strength to lower extremity. Admits to some increased drainge recently. She denies constitutional symptoms today. Denies further complaints today. Objective Data Objective Data Vital Signs: Vital Signs Temp Pulse Resp BP 97.9 F 94 18 152/89 H 08/21/23 00:26 08/21/23 00:26 08/21/23 00:26 08/21/23 00:26 Physical Exam Const alert, oriented x3, no apparent distress and well nourished General Appearance: cooperative HEENT normocephalic Eyes General Eye: normal appearance of both eyes Neck General: normal visual inspection Lymph Lymphatic: no lymphadenopathy noted and no lymphedema noted Resp normal respiratory effort Cardio regular rate and regular rhythm Extremity normal capillary refill, no joint enlargement, no calf tenderness and no pedal edema Extremity Narrative: DP and PT pulses palpable bilateral. Capillary fill time less than 3 seconds to digits bilateral. Dermatological: There is bilateral lower extremity edema secondary to chronic venous stasis with some hemosiderin deposition noted about the right lower extremity. There is a surgical dehiscence of the proximal incision on the right lower extremity with subsequent ulceration. Ulceration demonstrates mixed fibrogranular layer with some serosanguineous drainage. Surrounding skin does have rubor secondary to chronic venous stasis in addition to autoimmune disease. Ulceration demonstrates no signs of infection. Distal aspect of the incision right lateral leg is a well-healed cicatrix. Anterior lateral leg demonstrates well-healed cicatrix. No signs of infection. Medial ankle wound secondary to autoimmune response with rubor noted with some tenderness to palpation. Musculoskeletal: Muscle strength 5 of 5 age-appropriate. No pain to palpation about the lateral leg of the right lower extremity. Skin no rashes or lesions noted, skin turgor normal and no jaundice Neuro moves all extremities Debridement Note Debridement Note Wound debrided: Right lower extremity x 2 Laterality: Right Wound Grade/Stage: Maciel stage I Type of Debridement: Excisional debridement Anesthesia Used: 5% Lidocaine Gel and - (10 cc 1% lidocaine with epinephrine) Depth: Down to and including healthy tissue and in the subcutaneous layer Percentage of wound debrided: 100 Instrument Used: 5mm curette Tissue Removed: Fibrous, devitalized subcutaneous, biofilm, slough Severity: Fat Layer Exposed Amount of bleeding with debridement: Mild Bleeding Controlled with: Compression and gauze Patient tolerated procedure: Patient tolerated procedure well Assessment/Plan Assessment/Plan (1) Non-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: CODE(S): L97.312 - Non-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 (2) Non-pressure chronic ulcer of right calf with fat layer exposed: CODE(S): L97.212 - Non-pressure chronic ulcer of right calf with fat layer exposed (3) Venous insufficiency (chronic) (peripheral): CODE(S): I87.2 - Venous insufficiency (chronic) (peripheral) (4) Surgical wound dehiscence: CODE(S): T81.31XA - Disruption of external operation (surgical) wound, not elsewhere classified, initial encounter (5) Peroneal tendinitis, right leg: CODE(S): M76.71 - Peroneal tendinitis, right leg (6) Injury of peroneal tendon of right foot: CODE(S): S86.301A - Unspecified injury of muscle(s) and tendon(s) of peroneal muscle group at lower leg level, right leg, initial encounter (7) Rupture of ligament of right ankle: CODE(S): S93.401A - Sprain of unspecified ligament of right ankle, initial encounter (8) Syndesmotic disruption of right ankle: CODE(S): S93.431A - Sprain of tibiofibular ligament of right ankle, initial encounter (9) Pain in right lower leg: CODE(S): M79.661 - Pain in right lower leg PLAN: Plan Patient seen and evaluated She presents today postoperatively s/p primary repair of split tear of peroneal brevis tendon, primary repair of anterior tibiofibular ligament (AITFL), and syndesmotic reduction via tight rope DOS 04/24/2023, POD #125 Currently 4 months out of surgery. States pain to her right lateral ankle is continuing to improve she is continuing weight bearing to the Right foot. Denies calf pain today. Does admit to some upper leg pain where she did have dehiscence of her surgical incision site of the proximal portion of her lateral leg incision, but this is continuing to improve. She reports this did begin to open up on 06/02/2023 following lower extremity swelling secondary to her chronic venous insufficiency. She reports she was having difficulty with the Tubigrip compression which did allow for more leg swelling and opening of her surgical incision site. Dehiscence occurred 2 weeks following the removal of her sutures. Denies calf pain today. Negative Robertson sign & Negative Ro's sign. Does have some tenderness about wound site on lateral leg which is continuing to improve, and tenderness to the medial ankle with ulceration secondary to her autoimmune response. She has remained protective weightbearing to the right lower extremity with surgical shoe. Does admit to utilizing the assistance of a knee scooter at times. She has continued weightbearing in a surgical shoe as she does state the CAM boot does rub on the wound site causing some discomfort. States this is going well but does admit to some stiff feeling of the ankle but does expect this following surgery. States it is improving. Discussed transition to supportive shoe gear again today. Encouraged continued ambulation in supportive shoe gear vs surgical shoe Dressings were removed today and site was inspected. Anterior lateral ankle demonstrates well-healed cicatrix. Lateral ankle demonstrates well-healed cicatrix distally and proximally surgical dehiscence of wound with underlying ulceration. Ulceration did undergo debridement as noted in the clinical panel above. Ulceration measures 1.5 cm x 0.9 cm x 0.1 cm. Medial ankle ulceration measures 1.0 cm x 1.0 cm x 0.1 cm. Donated amnionic graft was applied to wound bed today. Sites was dressed with Adaptic touch and anchored with Steri-Strips. Instructed to change outer dressings as needed and to not get the site wet. Tubigrip compression stocking applied to the lower extremity. She was also encouraged to transition to full weightbearing to the right lower extremity in supportive shoe gear and elevate lower extremity at all times of rest for edema control. There is a slight increase in size of the ulceration versus previous visit at medial leg. Lateral leg demonstrates no progression. She is discussing with Rheumatology and [employer] utilizing new medication once wound is healed. Patient is currently on immunosuppressant agents for autoimmune disease and Due to some pain about the ulcerative site and medial ankle we will empirically start her on oral antibiotic. Rx Augmentin 875 mg twice daily x 14 days. Stop date 07/09/2023. She did go to ED for some medial ankle pain on 07/01/2023 they did give dose of IV Vanco/Zosyn. Discussed finishing this antibiotic and due to recent cultures from ED visit on 07/01/23 demonstrating +1 Staph aureus. Discussed new antibiotic to be started, doxycycline 100 mg twice daily x 4 weeks (stop date 07/30/23) due to her autoimmune disease and taking suppressive agents her antibiotic course will be extended to allow for resolution and clearance. She does admit to some occasional nausea with the antibiotic and thus she will be started on Zofran 4mg tablets as needed. She does admit to taking some Zofran for her nausea following treatments for autoimmune disease. As precaution I did start her on second round of oral antibiotic course Rx doxycycline 100 mg twice daily x 28 days and Augmentin 875 twice daily x 28 days (stop date 09/24/2023). She was also started on oral steroid, Medrol Dosepak for short course. Discussed adequate protein intake to aid in wound healing. Oscar supplementation recommended. Discussed continuing range of motion exercises while nonweightbearing, including working with resistance bands to increase lower extremity strength. Discussed as wound nears closure physical therapy will be implemented to improve strength and motion to the right lower extremity. Discussed at this time to transition to supportive shoe gear to the right lower extremity. Discussed weight bearing in supportive shoe gear today. Discussed once wound has healed we will begin physical therapy to increase strength and flexibility of the right lower extremity. Discussed continuing local wound care with plans to apply for EpiFix graft for application at next visit, still awaiting approval by insurance. It should be noted advanced wound care product will greatly improve her healing as she is immunocompromised secondary to immunosuppressive agents for her autoimmune disease. This product is necessary for healing of her wounds. At this time overall prognosis is good but complicated due to surgical dehiscence at the most proximal incision site secondary to chronic venous insufficiency, lower extremity edema, and autoimmune disease. We will continue local wound care at this time. Venous studies were performed 07/09/2023, no evidence of DVT. Valvular competence appears intact within the proximal deep venous system bilaterally. Great saphenous vein appears bilaterally patent and compressible segmentally. Saphenofemoral junctions are bilaterally competent. There is segmental valvular incompetence noted in the great saphenous veins bilaterally small saphenous veins patent and competent on the right and patent and incompetent on the left. There are several incompetent accessory saphenous veins and tributaries in the right lower extremity and 2 accessory saphenous veins of the left calf are incompetent. Discussed signs and symptoms of infection. Discussed with her if she notices increasing redness about the ulcerative site that moves up the leg, purulent drainage from the ulcerative site, increasing foul odor from the ulcerative site, or if she develops fever greater than 101 degree, develops nausea, vomiting, chills, these are signs of a progressing infection and she should report to the ED for IV antibiotics. She voices understanding of this today. The following work up and care recommendations were made: Dressing: Donated amnionic graft, Adaptic touch, Steri-Strips. Dry sterile dressing. May change outer dressings as needed Wash: Do not get site wet Tissue growth optimization: Donated amnionic graft Offload: To transition to full weightbearing to the right lower extremity in supportive shoe gear. foot. Patient was previously in CAM boot until surgical wound dehiscence. Transitioned back to surgical shoe to allow for decreased pressure at the wound site on the leg. Vascular: DP and PT pulses palpable with adequate capillary fill time to digits. Edema: Patient does have chronic venous insufficiency with bilateral lower extremity edema. Tubigrip compression is applied. Once wound is closed she will return to her prescription compression stockings. Infection: No signs of infection. Pain: May take [id number] Tylenol for discomfort Host factors: Chronic venous insufficiency, autoimmune disease I answered all the patient's questions. To return to the wound healing center in 1 week or call sooner if the patient has any questions or concerns. Will RTC for continued wound healing and postoperative care s/p primary repair of split tear of peroneal brevis tendon, primary repair of anterior tibiofibular ligament (AITFL), and syndesmotic repair via tight rope right lower extremity.
[2023-08-27 11:09] VITALS: BP 145/93; PULSE 91; RESP 18; TEMP 36.2
[2023-09-03 11:11] VITALS: BP 144/88; PULSE 81; RESP 18
--- NOTE | 2023-09-03 11:18 | PCM.WC.PN ---
History of Present Illness Date of Service: 09/03/23 Chief Complaint: Surgical wound dehiscence right leg History of Wound: Patient is a 38-year-old female who subsequently developed a surgical wound dehiscence of her right lateral lower extremity. She previously underwent surgery for primary repair of split tear of the peroneus brevis tendon, primary repair of anterior tibiofibular ligament (AITFL), and syndesmotic reduction via tight rope of the right lower extremity on 04/24/2023. Following removal of sutures she developed surgical wound dehiscence secondary to continued lower extremity swelling via chronic venous insufficiency. She did undergo debridement in office 06/05/2023 and Deidre was applied at this time with Tubigrip compression. She has worn compression stockings to manage lower extremity swelling prior to surgical intervention. Patient is also noted to have autoimmune disease and is managed by rheumatology with medication and did resume all medications 2 weeks post operative per rheumatology. She was referred to the wound care center for continued wound healing. She has been applying Deidre and dry sterile dressings daily. She denies N/V/F/chills. Denies further complaints. Subjective Subjective Patient is a 38-year-old female who presents to the wound care center today for follow-up of a right lateral leg surgical dehiscence s/p repair of split tear of peroneal brevis tendon, AITFL ligament repair, and syndesmotic repair of the right ankle. She had left dressings in place with donated graft in wound bed, has been changing outer dressings as needed. She reports she is continuing to walk with the surgical shoe in her apartment but is again assisted by knee scooter at visit today. She is continuing to work with resistance bands at home and doing home exercises to increase strength to lower extremity. States that her discomfort is improving since starting the steroid and antibiotic. She denies constitutional symptoms today. Denies further complaints today. Objective Data Objective Data Vital Signs: Vital Signs Temp Pulse Resp BP O2 Del Method 97.2 F L 91 18 145/93 H Room Air 08/27/23 11:09 08/27/23 11:09 08/27/23 11:09 08/27/23 11:08/27/23 11:09 Oxygen Delivery Method Room Air Physical Exam Const alert, oriented x3, no apparent distress and well nourished General Appearance: cooperative HEENT normocephalic Eyes General Eye: normal appearance of both eyes Neck General: normal visual inspection Lymph Lymphatic: no lymphadenopathy noted and no lymphedema noted Resp normal respiratory effort Cardio regular rate and regular rhythm Extremity normal capillary refill, no joint enlargement, no calf tenderness and no pedal edema Extremity Narrative: DP and PT pulses palpable bilateral. Capillary fill time less than 3 seconds to digits bilateral. Dermatological: There is bilateral lower extremity edema secondary to chronic venous stasis with some hemosiderin deposition noted about the right lower extremity. There is a surgical dehiscence of the proximal incision on the right lower extremity with subsequent ulceration. Ulceration demonstrates mixed fibrogranular layer with some serosanguineous drainage. Surrounding skin does have rubor secondary to chronic venous stasis in addition to autoimmune disease. Ulceration demonstrates no signs of infection. Distal aspect of the incision right lateral leg is a well-healed cicatrix. Anterior lateral leg demonstrates well-healed cicatrix. No signs of infection. Medial ankle wound secondary to autoimmune response with rubor noted with some tenderness to palpation. Musculoskeletal: Muscle strength 5 of 5 age-appropriate. No pain to palpation about the lateral leg of the right lower extremity. Skin no rashes or lesions noted, skin turgor normal and no jaundice Neuro moves all extremities Debridement Note Debridement Note No debridement was completed: No debridement was completed today Post-Debridement Measurements and Additional Note: Post-Debridement Measurements/Treatment - Nurse 1 - General Ulcer Assessment Start: 08/27/23 11:08 Freq: Status: Active Protocol: WC.LOWEXT Activity Type Activity Date Activity User E-sign Co-sign Detail Recorded Client Recorded Date Recorded By Document 08/27/23 11:09 Desktop 08/27/23 11:26 KW 08/27/23 11:09 - Today's Visit Information Type of service Follow-up Visit (Physician/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 ) Arrival Mode Ambulatory, Other Arrival Mode (Other) ALONG SIDE KNEE ROLLER Patient Identification Verified (Name & Yes ) Vital Signs Temperature (97.8 F-99.1 F) 97.2 F L Temperature Source Temporal Pulse Rate (60-100) 91 Pulse Location Monitor Respiratory Rate (12-18) 18 Respiratory rate source Observation Oxygen Delivery Method Room Air Blood Pressure (90/60-120/80) 145/93 H Blood Pressure Mean (mm Hg) 110 Source Monitor Position Semi-Fowlers Blood Pressure Location Right Forearm History Since Last Visit- (Skip if this is Patient's initial visit) Have you changed medications since your No last visit? Any new allergies or adverse reactions No Had a fall/change in ADL's that may No increase risk of falls Signs or symptoms of abuse and/or No neglect since last visit Have you been in the hospital since your No last visit? Has dressing in place as prescribed Yes Has compression in place as prescribed Yes Has offloadiing in place as prescribed Yes Experienced any changes in pain level or No management Left Footwear Regular Shoe Right Footwear Surgical Shoe with pressure relief insole Pain Scale: 0-10 Numeric Is Patient Pain Free? Yes WC - Nurse 1 - General Ulcer Measurement Start: 08/27/23 11:08 Freq: Status: Active Protocol: Activity Type Activity Date Activity User E-sign Co-sign Detail Recorded Client Recorded Date Recorded By Document 08/27/23 11:09 KW Desktop 08/27/23 11:26 KW 08/27/23 11:09 Wound Center Nurse 1 #2 RT MED ANKLE -Current Size (cm) - Length 1.2 -Current Size (cm) - Width 1.2 -Current Size (cm) - Depth 0.2 -Total Square Cm 1.44 -Exudate Amt Medium -Exudate Type Serosanguineous -Wound Margin Distinct, Outline Attached -Granulation Amt Large (67-100%) -Granulation Quality Hyper- granulation,Red -Texture (Meghan-wound Skin Appearance) Assessed, Localized Edema -Moisture (Meghan-wound Skin Appearance) Assessed -Color (Meghan-wound Skin Appearance) Erythema, Hemosiderin Staining -Temperature (Meghan-wound Skin No Abnormality Appearance) (Pt Warm) -Ulcer Cleansing Soap and Water -Anesthetic Used 5% Lidocaine Gel #1 RT LAT ANKLE CLUSTER -Current Size (cm) - Length 1.8 -Current Size (cm) - Width 1.2 -Current Size (cm) - Depth 0.2 -Total Square Cm 2.16 -Exudate Amt Medium -Exudate Type Serosanguineous -Wound Margin Distinct, Outline Attached -Granulation Amt Large (67-100%) -Granulation Quality Hyper- granulation,Red -Texture (Meghan-wound Skin Appearance) Assessed, Localized Edema -Moisture (Meghan-wound Skin Appearance) Assessed, Maceration -Color (Meghan-wound Skin Appearance) Assessed, Erythema -Temperature (Meghan-wound Skin No Abnormality Appearance) (Pt Warm) -Anesthetic Used 5% Lidocaine Gel WC - Nurse 2 - General Ulcer CM Notes Start: 08/27/23 11:08 Freq: Status: Active Protocol: Activity Type Activity Date Activity User E-sign Co-sign Detail Recorded Client Recorded Date Recorded By Document 08/27/23 11:33 BMF Desktop 08/27/23 11:58 BMF Edit Result 08/27/23 11:33 BMF (1) [id number] 08/31/23 12:01 BMF (1) #2 RT MED ANKLE - Wound Comment(s) => SAMPLE AMNIO EFFECT APPLIED TO BOTH WOUNDS => EXP DATE 01/21/28 => [id number] #1 RT LAT ANKLE CLUSTER - Wound Comment(s) => SAMPLE AMNIO EFFECT APPLIED TO BOTH WOUNDS => EXP DATE 01/21/28 => [id number] 08/27/23 11:33 Wound Center Nurse 2 #2 RT MED ANKLE -Time 11:33 -Correct Patient Yes -Correct Side, Site, Position Yes -Correct Procedure Yes -Procedure Performed Yes -Type of Procedure Debridement -Clinical Debridement Subcutaneous -Tissue Removed Subcutaneous -Post Debridement (cm) - Length 1 -Post Debridement (cm) - Width 1 -Post Debridement (cm) - Depth 0.1 -Total Square (Post) (cm) 1 -Area of Debridement (cm) - Length 1 -Area of Debridement (cm) - Width 1 -Total Square (Area) (cm) 1 -Tunneling No -Undermining/Tunneling No -Circular Undermining No -Wound/Ulcer Outcome Not Healed -Ulcer Cleansing Rinsed/ Irrigated with Saline -Foul Odor after Cleansing No -Bioengineered Tissue No -Injectable Lidocaine w/ Epi (%) 1 -Injectable Lidocaine w/ Epi (mls) 5 -Bleeding Controlled with Pressure -Treatment Response Procedure Tolerated Well -Offloading Yes -Type of Offloading Knee Walker -Debridement - Subq, 1st 20sq cm Yes -Wound Comment(s) SAMPLE AMNIO EFFECT APPLIED TO BOTH WOUNDS EXP DATE 01/21/28 [id number] #1 RT LAT ANKLE CLUSTER -Time 11:37 -Correct Patient Yes -Correct Side, Site, Position Yes -Correct Procedure Yes -Procedure Performed Yes -Type of Procedure Debridement -Clinical Debridement Subcutaneous -Tissue Removed Subcutaneous -Post Debridement (cm) - Length 1.5 -Post Debridement (cm) - Width 0.9 -Post Debridement (cm) - Depth 0.1 -Total Square (Post) (cm) 1.35 -Area of Debridement (cm) - Length 1.5 -Area of Debridement (cm) - Width 0.9 -Total Square (Area) (cm) 1.35 -Tunneling No -Undermining/Tunneling No -Circular Undermining No -Wound/Ulcer Outcome Not Healed -Ulcer Cleansing Rinsed/ Irrigated with Saline -Foul Odor after Cleansing No -Bioengineered Tissue No -Injectable Lidocaine w/ Epi (%) 1 -Injectable Lidocaine w/ Epi (mls) 5 -Bleeding Controlled with Pressure -Treatment Response Procedure Tolerated Well -Offloading Yes -Type of Offloading Knee Walker -Debridement - Subq, 1st 20sq cm No -Wound Comment(s) SAMPLE AMNIO EFFECT APPLIED TO BOTH WOUNDS EXP DATE 01/21/28 [id number] Pain Scale: 0-10 Numeric Is Patient Pain Free? No WOUND -Description Sharp,Burning, Aching -Intensity 6 -Duration (hours) Acute -Pain Behavior Facial Grimacing -Alleviating Factors/Interventions Distraction, Will continue to monitor, Emotional Support -Comments USED INJECTABLE LIDOCAINE WC - Nurse 3 - General Ulcer D/C NN Start: 08/27/23 11:08 Freq: Status: Active Protocol: Activity Type Activity Date Activity User E-sign Co-sign Detail Recorded Client Recorded Date Recorded By Document 08/27/23 12:07 KW Desktop 08/27/23 12:13 KW 08/27/23 12:07 Wound Care Center Nurse 3 #2 RT MED ANKLE -Primary Dressing Covered/Secured with Dry Gauze & Roll Gauze, Secured with Tape #1 RT LAT ANKLE CLUSTER -Primary Dressing Applied Aquacel AG 2x2 -Primary Dressing Covered/Secured with Dry Gauze & Roll Gauze, Secured with Tape -Aquacel AG 2x2 1 Right -Tubular Bandage Single Layer -Size of Tubigrip Used Size D -Size D ($) 1 Pain Scale: 0-10 Numeric Is Patient Pain Free? Yes WC - Visit Discharge Discharge Condition Stable Ambulatory Status Ambulatory Medication Reconcilliation completed & No provided to patient/care provider Clinical Summary of Care Provided Yes Assessment/Plan Assessment/Plan (1) Non-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: CODE(S): L97.312 - Non-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 (2) Non-pressure chronic ulcer of right calf with fat layer exposed: CODE(S): L97.212 - Non-pressure chronic ulcer of right calf with fat layer exposed (3) Venous insufficiency (chronic) (peripheral): CODE(S): I87.2 - Venous insufficiency (chronic) (peripheral) (4) Surgical wound dehiscence: CODE(S): T81.31XA - Disruption of external operation (surgical) wound, not elsewhere classified, initial encounter (5) Peroneal tendinitis, right leg: CODE(S): M76.71 - Peroneal tendinitis, right leg (6) Injury of peroneal tendon of right foot: CODE(S): S86.301A - Unspecified injury of muscle(s) and tendon(s) of peroneal muscle group at lower leg level, right leg, initial encounter (7) Rupture of ligament of right ankle: CODE(S): S93.401A - Sprain of unspecified ligament of right ankle, initial encounter (8) Syndesmotic disruption of right ankle: CODE(S): S93.431A - Sprain of tibiofibular ligament of right ankle, initial encounter (9) Pain in right lower leg: CODE(S): M79.661 - Pain in right lower leg (10) Pyoderma gangrenosum: CODE(S): L88 - Pyoderma gangrenosum PLAN: Plan Patient seen and evaluated She presents today postoperatively s/p primary repair of split tear of peroneal brevis tendon, primary repair of anterior tibiofibular ligament (AITFL), and syndesmotic reduction via tight rope DOS 04/24/2023, POD #[id number] Currently 4 months out of surgery. States pain to her right lateral ankle is continuing to improve she is continuing weight bearing to the Right foot. Denies calf pain today. Does admit to some upper leg pain where she did have dehiscence of her surgical incision site of the proximal portion of her lateral leg incision, but this is continuing to improve. She reports this did begin to open up on 06/02/2023 following lower extremity swelling secondary to her chronic venous insufficiency. She reports she was having difficulty with the Tubigrip compression which did allow for more leg swelling and opening of her surgical incision site. Dehiscence occurred 2 weeks following the removal of her sutures. Denies calf pain today. Negative Robertson sign & Negative Ro's sign. Does have some tenderness about wound site on lateral leg which is continuing to improve, and tenderness to the medial ankle with ulceration secondary to her autoimmune response. She has remained protective weightbearing to the right lower extremity with surgical shoe. Does admit to utilizing the assistance of a knee scooter at times. She has continued weightbearing in a surgical shoe as she does state the CAM boot does rub on the wound site causing some discomfort. States this is going well but does admit to some stiff feeling of the ankle but does expect this following surgery. States it is improving. Discussed transition to supportive shoe gear again today. Encouraged continued ambulation in supportive shoe gear vs surgical shoe Dressings were removed today and site was inspected. Anterior lateral ankle demonstrates well-healed cicatrix. Lateral ankle demonstrates well-healed cicatrix distally and proximally surgical dehiscence of wound with underlying ulceration. Ulceration did not undergo debridement as noted in the clinical panel above. Ulceration measures 1.4 cm x 0.8 cm x 0.1 cm. Medial ankle ulceration measures 1.0 cm x 1.0 cm x 0.1 cm. Donated amnionic graft was applied to wound bed today. Sites was dressed with Adaptic touch and anchored with Steri-Strips. Instructed to change outer dressings as needed and to not get the site wet. Tubigrip compression stocking applied to the lower extremity. She was also encouraged to transition to full weightbearing to the right lower extremity in supportive shoe gear and elevate lower extremity at all times of rest for edema control. There is a slight decrease in size of the ulceration versus previous visit. She is discussing with Rheumatology and Hypoid Gear Tester utilizing new medication once wound is healed. Patient is currently on immunosuppressant agents for autoimmune disease and Due to some pain about the ulcerative site and medial ankle we will empirically start her on oral antibiotic. Rx Augmentin 875 mg twice daily x 14 days. Stop date 07/09/2023. She did go to ED for some medial ankle pain on 07/01/2023 they did give dose of IV Vanco/Zosyn. Discussed finishing this antibiotic and due to recent cultures from ED visit on 07/01/23 demonstrating +1 Staph aureus. Discussed new antibiotic to be started, doxycycline 100 mg twice daily x 4 weeks (stop date 07/30/23) due to her autoimmune disease and taking suppressive agents her antibiotic course will be extended to allow for resolution and clearance. She does admit to some occasional nausea with the antibiotic and thus she will be started on Zofran 4mg tablets as needed. She does admit to taking some Zofran for her nausea following treatments for autoimmune disease. As precaution I did start her on second round of oral antibiotic course Rx doxycycline 100 mg twice daily x 28 days and Augmentin 875 twice daily x 28 days (stop date 09/24/2023). She was also started on oral steroid, Medrol Dosepak for short course. She did return on 09/03/2023 with demonstrated improvement in color of the surrounding tissue and decreased progression of her ulcerative sites. Patient is stating the pain is improved following the use of the steroid and the steroid course was extended as I do feel she has pyoderma gangrenosum. Will also look to begin applying topical steroid cream at next visit. Discussed adequate protein intake to aid in wound healing. Oscar supplementation recommended. Discussed continuing range of motion exercises while nonweightbearing, including working with resistance bands to increase lower extremity strength. Discussed as wound nears closure physical therapy will be implemented to improve strength and motion to the right lower extremity. Discussed at this time to transition to supportive shoe gear to the right lower extremity. Discussed weight bearing in supportive shoe gear today. Her gait is noted to be improving as she is using the knee scooter for longer distances as she does get tired. However walking into the wound center today and down the yao gait is noted to be much improved versus prior to surgical intervention. Discussed once wound has healed we will begin physical therapy to increase strength and flexibility of the right lower extremity. Discussed continuing local wound care with plans to apply for EpiFix graft for application at next visit, still awaiting approval by insurance. It should be noted advanced wound care product will greatly improve her healing as she is immunocompromised secondary to immunosuppressive agents for her autoimmune disease. This product is necessary for healing of her wounds. At this time overall prognosis is good but complicated due to surgical dehiscence at the most proximal incision site secondary to chronic venous insufficiency, lower extremity edema, and autoimmune disease. We will continue local wound care at this time. Venous studies were performed 07/09/2023, no evidence of DVT. Valvular competence appears intact within the proximal deep venous system bilaterally. Great saphenous vein appears bilaterally patent and compressible segmentally. Saphenofemoral junctions are bilaterally competent. There is segmental valvular incompetence noted in the great saphenous veins bilaterally small saphenous veins patent and competent on the right and patent and incompetent on the left. There are several incompetent accessory saphenous veins and tributaries in the right lower extremity and 2 accessory saphenous veins of the left calf are incompetent. Discussed signs and symptoms of infection. Discussed with her if she notices increasing redness about the ulcerative site that moves up the leg, purulent drainage from the ulcerative site, increasing foul odor from the ulcerative site, or if she develops fever greater than 101 degree, develops nausea, vomiting, chills, these are signs of a progressing infection and she should report to the ED for IV antibiotics. She voices understanding of this today. The following work up and care recommendations were made: Dressing: Donated amnionic graft, Adaptic touch, Steri-Strips. Dry sterile dressing. May change outer dressings as needed Wash: Do not get site wet Tissue growth optimization: Donated amnionic graft Offload: To transition to full weightbearing to the right lower extremity in supportive shoe gear. foot. Patient was previously in CAM boot until surgical wound dehiscence. Transitioned back to surgical shoe to allow for decreased pressure at the wound site on the leg. Vascular: DP and PT pulses palpable with adequate capillary fill time to digits. Edema: Patient does have chronic venous insufficiency with bilateral lower extremity edema. Tubigrip compression is applied. Once wound is closed she will return to her prescription compression stockings. Infection: No signs of infection. Pain: May take [id number] Tylenol for discomfort Host factors: Chronic venous insufficiency, autoimmune disease I answered all the patient's questions. To return to the wound healing center in 1 week or call sooner if the patient has any questions or concerns. Will RTC for continued wound healing and postoperative care s/p primary repair of split tear of peroneal brevis tendon, primary repair of anterior tibiofibular ligament (AITFL), and syndesmotic repair via tight rope right lower extremity.
[2023-09-10 11:20] VITALS: BP 140/95; PULSE 71; RESP 18; TEMP 36.6
--- NOTE | 2023-09-10 11:21 | PCM.WC.PN ---
History of Present Illness Date of Service: 09/10/23 Chief Complaint: Surgical wound dehiscence right leg History of Wound: Patient is a 38-year-old female who subsequently developed a surgical wound dehiscence of her right lateral lower extremity. She previously underwent surgery for primary repair of split tear of the peroneus brevis tendon, primary repair of anterior tibiofibular ligament (AITFL), and syndesmotic reduction via tight rope of the right lower extremity on 04/24/2023. Following removal of sutures she developed surgical wound dehiscence secondary to continued lower extremity swelling via chronic venous insufficiency. She did undergo debridement in office 06/05/2023 and Deidre was applied at this time with Tubigrip compression. She has worn compression stockings to manage lower extremity swelling prior to surgical intervention. Patient is also noted to have autoimmune disease and is managed by rheumatology with medication and did resume all medications 2 weeks post operative per rheumatology. She was referred to the wound care center for continued wound healing. She has been applying Deidre and dry sterile dressings daily. She denies N/V/F/chills. Denies further complaints. Subjective Subjective Patient is a 38-year-old female who presents to the wound care center today for follow-up of a right lateral leg surgical dehiscence s/p repair of split tear of peroneal brevis tendon, AITFL ligament repair, and syndesmotic repair of the right ankle. She had left dressings in place with donated graft in wound bed, has been changing outer dressings as needed. She reports she is continuing to walk with the surgical shoe in her apartment but is again assisted by knee scooter at visit today. She is continuing to work with resistance bands at home and doing home exercises to increase strength to lower extremity. States that her discomfort is improving since starting the steroid and antibiotic. She denies constitutional symptoms today. Denies further complaints today. Objective Data Objective Data Vital Signs: Vital Signs Temp Pulse Resp BP O2 Del Method 97.2 F L 81 18 144/88 H Room Air 08/27/23 11:09 09/03/23 11:11 09/03/23 11:11 09/03/23 11:11 09/03/23 11:11 Oxygen Delivery Method Room Air Physical Exam Const alert, oriented x3, no apparent distress and well nourished General Appearance: cooperative HEENT normocephalic Eyes General Eye: normal appearance of both eyes Neck General: normal visual inspection Lymph Lymphatic: no lymphadenopathy noted and no lymphedema noted Resp normal respiratory effort Cardio regular rate and regular rhythm Extremity normal capillary refill, no joint enlargement, no calf tenderness and no pedal edema Extremity Narrative: DP and PT pulses palpable bilateral. Capillary fill time less than 3 seconds to digits bilateral. Dermatological: There is bilateral lower extremity edema secondary to chronic venous stasis with some hemosiderin deposition noted about the right lower extremity. There is a surgical dehiscence of the proximal incision on the right lower extremity with subsequent ulceration. Ulceration demonstrates mixed fibrogranular layer with some serosanguineous drainage. Surrounding skin does have rubor secondary to chronic venous stasis in addition to autoimmune disease. Ulceration demonstrates no signs of infection. Distal aspect of the incision right lateral leg is a well-healed cicatrix. Anterior lateral leg demonstrates well-healed cicatrix. No signs of infection. Medial ankle wound secondary to autoimmune response with rubor noted with some tenderness to palpation. On 08/28/2023 she demonstrated worsening of the medial and lateral ulcerative sites with deep purple violaceous border and hypertrophy of the wound bed and was started on oral steroid for possible pyoderma gangrenosum. She returned again on 09/03/2023 following oral steroid with noted improvement in tissue color surrounding the ulcerative sites and decreasing hypertrophy of the wound bed tissue. Pain also noted to be improving following oral steroid. Debridement to be stopped. Musculoskeletal: Muscle strength 5 of 5 age-appropriate. No pain to palpation about the lateral leg of the right lower extremity. Skin no rashes or lesions noted, skin turgor normal and no jaundice Neuro moves all extremities Debridement Note Debridement Note No debridement was completed: No debridement was completed today Post-Debridement Measurements and Additional Note: Post-Debridement Measurements/Treatment - Nurse 1 - General Ulcer Assessment Start: 08/27/23 11:08 Freq: Status: Active Protocol: LAURIE Activity Type Activity Date Activity User E-sign Co-sign Detail Recorded Client Recorded Date Recorded By Document 08/27/23 11:09 KW Desktop 08/27/23 11:26 KW Document 09/03/23 11:11 KW Desktop 09/03/23 11:18 KW 08/27/23 09/03/23 11:09 11:11 - Today's Visit Information Type of service Follow-up Visit Follow-up Visit (Physician/ROLLER HELPER (Physician/ROLLER HELPER ) ) Arrival Mode Ambulatory, Ambulatory, Other Other Arrival Mode (Other) ALONG SIDE KNEE KNEE SCOOTER ROLLER Patient Identification Verified (Name & Yes Yes ) Vital Signs Temperature (97.8 F-99.1 F) 97.2 F L Temperature Source Temporal Pulse Rate (60-100) 91 81 Pulse Location Monitor Monitor Respiratory Rate (12-18) 18 18 Respiratory rate source Observation Observation Oxygen Delivery Method Room Air Room Air Blood Pressure (90/60-120/80) 145/93 H 144/88 H Blood Pressure Mean (mm Hg) 110 106 Source Monitor Monitor Position Semi-Fowlers Semi-Fowlers Blood Pressure Location Right Forearm Left Arm History Since Last Visit- (Skip if this is Patient's initial visit) Have you changed medications since your No No last visit? Any new allergies or adverse reactions No No Had a fall/change in ADL's that may No No increase risk of falls Signs or symptoms of abuse and/or No No neglect since last visit Have you been in the hospital since your No No last visit? Has dressing in place as prescribed Yes Yes Has compression in place as prescribed Yes Yes Has offloadiing in place as prescribed Yes Yes Experienced any changes in pain level or No No management Left Footwear Regular Shoe Regular Shoe Right Footwear Surgical Shoe Surgical Shoe with pressure with pressure relief insole relief insole Pain Scale: 0-10 Numeric Is Patient Pain Free? Yes Yes WC - Nurse 1 - General Ulcer Measurement Start: 08/27/23 11:08 Freq: Status: Active Protocol: Activity Type Activity Date Activity User E-sign Co-sign Detail Recorded Client Recorded Date Recorded By Document 08/27/23 11:09 KW Desktop 08/27/23 11:26 KW Document 09/03/23 11:11 KW Desktop 09/03/23 11:18 KW 08/27/23 09/03/23 11:09 11:11 Wound Center Nurse 1 #2 RT MED ANKLE -Current Size (cm) - Length 1.2 0.7 -Current Size (cm) - Width 1.2 1 -Current Size (cm) - Depth 0.2 0.2 -Total Square Cm 1.44 0.7 -Exudate Amt Medium Small -Exudate Type Serosanguineous Serosanguineous -Wound Margin Distinct, Outline Attached -Granulation Amt Large (67-100%) -Granulation Quality Hyper- Hyper- granulation,Red granulation,Red -Necrosis Amt Small (1-33%) -Necrotic Tissue Type Eschar -Texture (Meghan-wound Skin Appearance) Assessed, Localized Edema Localized Edema -Moisture (Meghan-wound Skin Appearance) Assessed Assessed -Color (Meghan-wound Skin Appearance) Erythema, Assessed, Hemosiderin Erythema Staining -Temperature (Meghan-wound Skin No Abnormality No Abnormality Appearance) (Pt Warm) (Pt Warm) -Tenderness on Palpation (Meghan-wound Yes Skin Appearance) -Ulcer Cleansing Soap and Water Soap and Water -Foul Odor after Cleansing No -Anesthetic Used 5% Lidocaine 5% Lidocaine Gel Gel #1 RT LAT ANKLE CLUSTER -Current Size (cm) - Length 1.8 1.4 -Current Size (cm) - Width 1.2 0.8 -Current Size (cm) - Depth 0.2 1 -Total Square Cm 2.16 1.12 -Exudate Amt Medium Medium -Exudate Type Serosanguineous Serosanguineous -Wound Margin Distinct, Distinct, Outline Outline Attached Attached -Granulation Amt Large (67-100%) Large (67-100%) -Granulation Quality Hyper- Red granulation,Red -Necrosis Amt Small (1-33%) -Necrotic Tissue Type Adherent Slough -Texture (Meghan-wound Skin Appearance) Assessed, Assessed, Localized Edema Localized Edema -Moisture (Meghan-wound Skin Appearance) Assessed, Assessed Maceration -Color (Meghan-wound Skin Appearance) Assessed, Assessed, Erythema Erythema -Temperature (Meghan-wound Skin No Abnormality No Abnormality Appearance) (Pt Warm) (Pt Warm) -Tenderness on Palpation (Meghan-wound Yes Skin Appearance) -Ulcer Cleansing Soap and Water -Foul Odor after Cleansing No -Anesthetic Used 5% Lidocaine 5% Lidocaine Gel Gel Right Calf (cm) 42.5 WC - Nurse 2 - General Ulcer CM Notes Start: 08/27/23 11:08 Freq: Status: Active Protocol: Activity Type Activity Date Activity User E-sign Co-sign Detail Recorded Client Recorded Date Recorded By Document 08/27/23 11:33 BMF Desktop 08/27/23 11:58 BMF Edit Result 08/27/23 11:33 BMF (1) [id number] 08/31/23 12:01 BMF Document 09/03/23 11:37 BMF Desktop 09/03/23 11:49 BMF (1) #2 RT MED ANKLE - Wound Comment(s) => SAMPLE AMNIO EFFECT APPLIED TO BOTH WOUNDS => EXP DATE 01/21/28 => [id number] #1 RT LAT ANKLE CLUSTER - Wound Comment(s) => SAMPLE AMNIO EFFECT APPLIED TO BOTH WOUNDS => EXP DATE 01/21/28 => [id number] 08/27/23 09/03/23 11:33 11:37 Wound Center Nurse 2 #2 RT MED ANKLE -Time 11:33 11:37 -Correct Patient Yes -Correct Side, Site, Position Yes -Correct Procedure Yes -Procedure Performed Yes -Type of Procedure Debridement -Clinical Debridement Subcutaneous -Tissue Removed Subcutaneous -Post Debridement (cm) - Length 1 1 -Post Debridement (cm) - Width 1 1 -Post Debridement (cm) - Depth 0.1 0.1 -Total Square (Post) (cm) 1 1 -Area of Debridement (cm) - Length 1 1 -Area of Debridement (cm) - Width 1 1 -Total Square (Area) (cm) 1 1 -Tunneling No No -Undermining/Tunneling No No -Circular Undermining No No -Wound/Ulcer Outcome Not Healed Not Healed -Ulcer Cleansing Rinsed/ Not Cleansed Irrigated with Saline -Foul Odor after Cleansing No No -Bioengineered Tissue No -Injectable Lidocaine w/ Epi (%) 1 -Injectable Lidocaine w/ Epi (mls) 5 -Bleeding Controlled with Pressure -Treatment Response Procedure Tolerated Well -Offloading Yes -Type of Offloading Knee Walker -Debridement - Subq, 1st 20sq cm Yes -Wound Comment(s) SAMPLE AMNIO applied free EFFECT APPLIED amnioeffect TO BOTH WOUNDS product EXP DATE 01/21/28 exp 06/29/27 [id number] lot # [id number] #1 RT LAT ANKLE CLUSTER -Time 11:37 11:48 -Correct Patient Yes Yes -Correct Side, Site, Position Yes -Correct Procedure Yes -Procedure Performed Yes -Type of Procedure Debridement -Clinical Debridement Subcutaneous -Tissue Removed Subcutaneous -Post Debridement (cm) - Length 1.5 1 -Post Debridement (cm) - Width 0.9 0.5 -Post Debridement (cm) - Depth 0.1 0.1 -Total Square (Post) (cm) 1.35 0.5 -Area of Debridement (cm) - Length 1.5 1 -Area of Debridement (cm) - Width 0.9 0.5 -Total Square (Area) (cm) 1.35 0.5 -Tunneling No No -Undermining/Tunneling No No -Circular Undermining No No -Wound/Ulcer Outcome Not Healed Not Healed -Ulcer Cleansing Rinsed/ Rinsed/ Irrigated with Irrigated with Saline Saline -Foul Odor after Cleansing No No -Bioengineered Tissue No -Injectable Lidocaine w/ Epi (%) 1 -Injectable Lidocaine w/ Epi (mls) 5 -Bleeding Controlled with Pressure NA -Treatment Response Procedure Tolerated Well -Offloading Yes -Type of Offloading Knee Walker -Debridement - Subq, 1st 20sq cm No -Wound Comment(s) SAMPLE AMNIO applied free EFFECT APPLIED amnioeffect TO BOTH WOUNDS product EXP DATE 01/21/28 exp 06/29/27 [id number] ns lot # [id number] Pain Scale: 0-10 Numeric Is Patient Pain Free? No Yes WOUND -Description Sharp,Burning, Aching -Intensity 6 -Duration (hours) Acute -Pain Behavior Facial Grimacing -Alleviating Factors/Interventions Distraction, Will continue to monitor, Emotional Support -Comments USED INJECTABLE LIDOCAINE WC - Nurse 3 - General Ulcer D/C NN Start: 08/27/23 11:08 Freq: Status: Active Protocol: Activity Type Activity Date Activity User E-sign Co-sign Detail Recorded Client Recorded Date Recorded By Document 08/27/23 12:07 KW Desktop 08/27/23 12:13 KW Document 09/03/23 11:54 MT Desktop 09/03/23 12:04 MT 08/27/23 09/03/23 12:07 11:54 Wound Care Center Nurse 3 #2 RT MED ANKLE -Primary Dressing Applied Aquacel Extra -Primary Dressing Covered/Secured with Dry Gauze & Dry Gauze & Roll Gauze, Roll Gauze, Secured with Secured with Tape Tape -Aquacel Extra 1 #1 RT LAT ANKLE CLUSTER -Primary Dressing Applied Aquacel AG 2x2 -Primary Dressing Covered/Secured with Dry Gauze & Roll Gauze, Secured with Tape -Aquacel AG 2x2 1 Right -Tubular Bandage Single Layer Single Layer -Size of Tubigrip Used Size D Size E -Size D ($) 1 -Size E ($) 1 Pain Scale: 0-10 Numeric Is Patient Pain Free? Yes Yes WC - Visit Discharge Discharge Condition Stable Stable Ambulatory Status Ambulatory Ambulatory, Walker Transportation Private Auto Medication Reconcilliation completed & No No provided to patient/care provider Clinical Summary of Care Provided Yes Yes Assessment/Plan Assessment/Plan (1) Non-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: CODE(S): L97.312 - Non-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 (2) Non-pressure chronic ulcer of right calf with fat layer exposed: CODE(S): L97.212 - Non-pressure chronic ulcer of right calf with fat layer exposed (3) Venous insufficiency (chronic) (peripheral): CODE(S): I87.2 - Venous insufficiency (chronic) (peripheral) (4) Surgical wound dehiscence: CODE(S): T81.31XA - Disruption of external operation (surgical) wound, not elsewhere classified, initial encounter (5) Peroneal tendinitis, right leg: CODE(S): M76.71 - Peroneal tendinitis, right leg (6) Injury of peroneal tendon of right foot: CODE(S): S86.301A - Unspecified injury of muscle(s) and tendon(s) of peroneal muscle group at lower leg level, right leg, initial encounter (7) Rupture of ligament of right ankle: CODE(S): S93.401A - Sprain of unspecified ligament of right ankle, initial encounter (8) Syndesmotic disruption of right ankle: CODE(S): S93.431A - Sprain of tibiofibular ligament of right ankle, initial encounter (9) Pain in right lower leg: CODE(S): M79.661 - Pain in right lower leg (10) Pyoderma gangrenosum: CODE(S): L88 - Pyoderma gangrenosum PLAN: Plan Patient seen and evaluated She presents today postoperatively s/p primary repair of split tear of peroneal brevis tendon, primary repair of anterior tibiofibular ligament (AITFL), and syndesmotic reduction via tight rope DOS 04/24/2023, POD #[id number] Currently 5 months out of surgery. States pain to her right lateral ankle is continuing to improve she is continuing weight bearing to the Right foot. Denies calf pain today. Does admit to some upper leg pain where she did have dehiscence of her surgical incision site of the proximal portion of her lateral leg incision, but this is continuing to improve. She reports this did begin to open up on 06/02/2023 following lower extremity swelling secondary to her chronic venous insufficiency. She reports she was having difficulty with the Tubigrip compression which did allow for more leg swelling and opening of her surgical incision site. Dehiscence occurred 2 weeks following the removal of her sutures. Denies calf pain today. Negative Robertson sign & Negative Ro's sign. Does have some tenderness about wound site on lateral leg which is continuing to improve, and tenderness to the medial ankle with ulceration secondary to her autoimmune response. She has remained protective weightbearing to the right lower extremity with surgical shoe. Does admit to utilizing the assistance of a knee scooter at times. She has continued weightbearing in a surgical shoe as she does state the CAM boot does rub on the wound site causing some discomfort. States this is going well but does admit to some stiff feeling of the ankle but does expect this following surgery. States it is continuing to improve each day. Discussed transition to supportive shoe gear again today. Encouraged continued ambulation in supportive shoe gear vs surgical shoe. Currently full weightbearing in surgical shoe without difficulty. Dressings were removed today and site was inspected. Anterior lateral ankle demonstrates well-healed cicatrix. Lateral ankle demonstrates well-healed cicatrix distally and proximally surgical dehiscence of wound with underlying ulceration. Ulceration did not undergo debridement as noted in the clinical panel above. Ulceration measures 1.4 cm x 0.8 cm x 0.1 cm. Medial ankle ulceration measures 1.0 cm x 1.0 cm x 0.1 cm. Will begin applying topical tacrolimus 0.1% cream daily. Tubigrip compression stocking applied to the lower extremity. She was also encouraged to transition to full weightbearing to the right lower extremity in supportive shoe gear and elevate lower extremity at all times of rest for edema control. On 08/28/2023 she demonstrated worsening of the medial and lateral ulcerative sites with deep purple violaceous border and hypertrophy of the wound bed and was started on oral steroid for possible pyoderma gangrenosum. She returned again on 09/03/2023 following oral steroid with noted improvement in tissue color surrounding the ulcerative sites and decreasing hypertrophy of the wound bed tissue. Pain also noted to be improving following oral steroid. Debridement was stopped and oral steroid was started with plan to monitor response. There is a slight decrease in size of the ulceration versus previous visit. She is discussing with Rheumatology and Pastry Artist utilizing new medication once wound is healed. Patient is currently on immunosuppressant agents for autoimmune disease and Due to some pain about the ulcerative site and medial ankle we will empirically start her on oral antibiotic. Rx Augmentin 875 mg twice daily x 14 days. Stop date 07/09/2023. She did go to ED for some medial ankle pain on 07/01/2023 they did give dose of IV Vanco/Zosyn. Discussed finishing this antibiotic and due to recent cultures from ED visit on 07/01/23 demonstrating +1 Staph aureus. Discussed new antibiotic to be started, doxycycline 100 mg twice daily x 4 weeks (stop date 07/30/23) due to her autoimmune disease and taking suppressive agents her antibiotic course will be extended to allow for resolution and clearance. She does admit to some occasional nausea with the antibiotic and thus she will be started on Zofran 4mg tablets as needed. She does admit to taking some Zofran for her nausea following treatments for autoimmune disease. As precaution I did start her on second round of oral antibiotic course Rx doxycycline 100 mg twice daily x 28 days and Augmentin 875 twice daily x 28 days (stop date 09/24/2023). She was also started on oral steroid, Medrol Dosepak for short course on 08/28/23. She did return on 09/03/2023 with demonstrated improvement in color of the surrounding tissue and decreased progression of her ulcerative sites. Patient is stating the pain is improved following the use of the steroid and the steroid course was extended as I do feel she has pyoderma gangrenosum. Today, 09/10/2023 she was prescribed topical tacrolimus 0.1% to apply the wound bed daily. Will continue the topical steroid and finish current oral steroid course which does have 3 days left and continue to monitor response and healing. At this time she does continue to demonstrate healing progress of the wound and local tissue. Discussed adequate protein intake to aid in wound healing. Oscar supplementation recommended. Discussed continuing range of motion exercises while nonweightbearing, including working with resistance bands to increase lower extremity strength. Discussed as wound nears closure physical therapy will be implemented to improve strength and motion to the right lower extremity. Discussed at this time to transition to supportive shoe gear to the right lower extremity. Discussed weight bearing in supportive shoe gear today. Her gait is noted to be improving as she is using the knee scooter for longer distances as she does get tired. Walking into the wound center today and down the yao gait is noted to be much improved versus prior to surgical intervention. Discussed once wound has healed we will begin physical therapy to increase strength and flexibility of the right lower extremity. Discussed continuing local wound care with plans to apply for EpiFix graft for application at next visit, still awaiting approval by insurance. It should be noted advanced wound care product will greatly improve her healing as she is immunocompromised secondary to immunosuppressive agents for her autoimmune disease. This product is necessary for healing of her wounds. At this time overall prognosis is good but complicated due to surgical dehiscence at the most proximal incision site secondary to chronic venous insufficiency, lower extremity edema, and autoimmune disease. We will continue local wound care at this time. Venous studies were performed 07/09/2023, no evidence of DVT. Valvular competence appears intact within the proximal deep venous system bilaterally. Great saphenous vein appears bilaterally patent and compressible segmentally. Saphenofemoral junctions are bilaterally competent. There is segmental valvular incompetence noted in the great saphenous veins bilaterally small saphenous veins patent and competent on the right and patent and incompetent on the left. There are several incompetent accessory saphenous veins and tributaries in the right lower extremity and 2 accessory saphenous veins of the left calf are incompetent. Discussed signs and symptoms of infection. Discussed with her if she notices increasing redness about the ulcerative site that moves up the leg, purulent drainage from the ulcerative site, increasing foul odor from the ulcerative site, or if she develops fever greater than 101 degree, develops nausea, vomiting, chills, these are signs of a progressing infection and she should report to the ED for IV antibiotics. She voices understanding of this today. The following work up and care recommendations were made: Dressing: Donated amnionic graft, Adaptic touch, Steri-Strips. Dry sterile dressing. May change outer dressings as needed Wash: Do not get site wet Tissue growth optimization: Donated amnionic graft Offload: To transition to full weightbearing to the right lower extremity in supportive shoe gear. foot. Patient was previously in CAM boot until surgical wound dehiscence. Transitioned back to surgical shoe to allow for decreased pressure at the wound site on the leg. Vascular: DP and PT pulses palpable with adequate capillary fill time to digits. Edema: Patient does have chronic venous insufficiency with bilateral lower extremity edema. Tubigrip compression is applied. Once wound is closed she will return to her prescription compression stockings. Infection: No signs of infection. Pain: May take [id number] Tylenol for discomfort Host factors: Chronic venous insufficiency, autoimmune disease I answered all the patient's questions. To return to the wound healing center in 1 week or call sooner if the patient has any questions or concerns. Will RTC for continued wound healing and postoperative care s/p primary repair of split tear of peroneal brevis tendon, primary repair of anterior tibiofibular ligament (AITFL), and syndesmotic repair via tight rope right lower extremity.
== END 2023-09-20 23:59 | disposition home or self-care (01) ==
LOC: WC 11:00
PROVIDERS: PCP Internal Medicine; Referring Provider Student in an Organized Health Care Education/Training Program; Visit Provider Student in an Organized Health Care Education/Training Program
DX: T81.31XA Disruption of external operation (surgical) wound, not elsewhere classified, initial encounter (principal); L97.212 Non-pressure chronic ulcer of right calf with fat layer exposed; L97.312 Non-pressure chronic ulcer of right 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; L88 Pyoderma gangrenosum; S93.431S Sprain of tibiofibular ligament of right ankle, sequela; M76.71 Peroneal tendinitis, right leg; I87.2 Venous insufficiency (chronic) (peripheral)
CPT/HCPCS: 11042; 99213; 99214; G0463

== ENCOUNTER 2023-10-15 11:00 | Outpatient (RCR) | payer MEDICARE, MEDICAID, SELFPAY ==
[2023-09-21 00:21] VITALS: BP 140/95; PULSE 71; RESP 18; TEMP 36.6
[2023-09-24 11:19] VITALS: BP 150/68; PULSE 83; RESP 18; TEMP 36.6
--- NOTE | 2023-09-24 13:44 | PCM.WC.PN ---
History of Present Illness Date of Service: 09/24/23 Chief Complaint: Surgical wound dehiscence right leg History of Wound: Patient is a 38-year-old female who subsequently developed a surgical wound dehiscence of her right lateral lower extremity. She previously underwent surgery for primary repair of split tear of the peroneus brevis tendon, primary repair of anterior tibiofibular ligament (AITFL), and syndesmotic reduction via tight rope of the right lower extremity on 04/24/2023. Following removal of sutures she developed surgical wound dehiscence secondary to continued lower extremity swelling via chronic venous insufficiency. She did undergo debridement in office 06/05/2023 and Deidre was applied at this time with Tubigrip compression. She has worn compression stockings to manage lower extremity swelling prior to surgical intervention. Patient is also noted to have autoimmune disease and is managed by rheumatology with medication and did resume all medications 2 weeks post operative per rheumatology. She was referred to the wound care center for continued wound healing. She has been applying Deidre and dry sterile dressings daily. She denies N/V/F/chills. Denies further complaints. Subjective Subjective Patient is a 38-year-old female who presents to the wound care center today for follow-up of a right lateral leg surgical dehiscence s/p repair of split tear of peroneal brevis tendon, AITFL ligament repair, and syndesmotic repair of the right ankle. She reports she is continuing to walk with the surgical shoe. She is continuing to work with resistance bands at home and doing home exercises to increase strength to lower extremity. She has been continuing to apply the topical tacrolimus ointment and is demonstrating continued improvement. She denies constitutional symptoms today. Denies further complaints today. Objective Data Objective Data Vital Signs: Vital Signs Temp Pulse Resp BP O2 Del Method 98 F 83 18 150/68 H Room Air 09/24/23 11:19 09/24/23 11:19 09/24/23 11:19 09/24/23 11:19 09/24/23 11:19 Oxygen Delivery Method Room Air Physical Exam Const alert, oriented x3 and no apparent distress General Appearance: cooperative HEENT normocephalic Eyes General Eye: normal appearance of both eyes Neck General: normal visual inspection Lymph Lymphatic: no lymphadenopathy noted and no lymphedema noted Resp normal respiratory effort Cardio regular rate and regular rhythm Extremity normal capillary refill, no joint enlargement, no calf tenderness and no pedal edema Extremity Narrative: DP and PT pulses palpable bilateral. Capillary fill time less than 3 seconds to digits bilateral. Dermatological: There is bilateral lower extremity edema secondary to chronic venous stasis with some hemosiderin deposition noted about the right lower extremity. There is a surgical dehiscence of the proximal incision on the right lower extremity with subsequent ulceration. Ulceration demonstrates mixed fibrogranular layer with some serosanguineous drainage. Surrounding skin does have rubor secondary to chronic venous stasis in addition to autoimmune disease. Ulceration demonstrates no signs of infection. Distal aspect of the incision right lateral leg is a well-healed cicatrix. Anterior lateral leg demonstrates well-healed cicatrix. No signs of infection. Medial ankle wound secondary to autoimmune response with rubor noted with some tenderness to palpation. - Improving ulcerations with use of topical tacrolimus ointment On 08/28/2023 she demonstrated worsening of the medial and lateral ulcerative sites with deep purple violaceous border and hypertrophy of the wound bed and was started on oral steroid for possible pyoderma gangrenosum. She returned again on 09/03/2023 following oral steroid with noted improvement in tissue color surrounding the ulcerative sites and decreasing hypertrophy of the wound bed tissue. Pain also noted to be improving following oral steroid. Debridement to be stopped. Musculoskeletal: Muscle strength 5 of 5 age-appropriate. No pain to palpation about the lateral leg of the right lower extremity. Skin no rashes or lesions noted, skin turgor normal and no jaundice Neuro moves all extremities Debridement Note Debridement Note No debridement was completed: No debridement was completed today Post-Debridement Measurements and Additional Note: Post-Debridement Measurements/Treatment - Nurse 1 - General Ulcer Assessment Start: 09/24/23 11:18 Freq: Status: Active Protocol: WC.LOWEXT Activity Type Activity Date Activity User E-sign Co-sign Detail Recorded Client Recorded Date Recorded By Document 09/24/23 11:19 MT Desktop 09/24/23 11:27 MT 09/24/23 11:19 - Today's Visit Information Type of service Follow-up Visit (Physician/TRAVEL ACCOMMODATION INSPECTOR ) Arrival Mode Ambulatory, Walker Accompanied by self Patient Identification Verified (Name & Yes ) Safety Precautions Fall Prevention Vital Signs Temperature (97.8 F-99.1 F) 98 F Temperature Source Temporal Pulse Rate (60-100) 83 Pulse Location Monitor Respiratory Rate (12-18) 18 Respiratory rate source Observation Oxygen Delivery Method Room Air Blood Pressure (90/60-120/80) 150/68 H Blood Pressure Mean (mm Hg) 95 Source Monitor Position Sitting Blood Pressure Location Left Arm History Since Last Visit- (Skip if this is Patient's initial visit) Has compression in place as prescribed N/A Has offloadiing in place as prescribed N/A Left Footwear Regular Shoe Right Footwear Regular Shoe Pain Scale: 0-10 Numeric Is Patient Pain Free? Yes WC - Nurse 1 - General Ulcer Measurement Start: 09/24/23 11:18 Freq: Status: Active Protocol: Activity Type Activity Date Activity User E-sign Co-sign Detail Recorded Client Recorded Date Recorded By Document 09/24/23 11:19 [place] Desktop 09/24/23 11:27 TN 09/24/23 11:19 Wound Center Nurse 1 #2 RT MED ANKLE -Current Size (cm) - Length 0.9 -Current Size (cm) - Width 1.0 -Current Size (cm) - Depth 0.3 -Total Square Cm 0.90 -Exudate Amt Small -Exudate Type Serous -Wound Margin Flat & Intact -Granulation Amt Large (67-100%) -Granulation Quality Pale,[place] -Necrosis Amt Small (1-33%) -Necrotic Tissue Type Adherent Slough -Texture (Meghan-wound Skin Appearance) Assessed -Moisture (Meghan-wound Skin Appearance) Assessed -Color (Meghan-wound Skin Appearance) Assessed -Temperature (Meghan-wound Skin No Abnormality Appearance) (Pt Warm) -Tenderness on Palpation (Meghan-wound No Skin Appearance) -Ulcer Cleansing Rinsed/ Irrigated with Saline -Foul Odor after Cleansing No -Anesthetic Used 5% Lidocaine Gel #1 RT LAT ANKLE CLUSTER -Current Size (cm) - Length 1.1 -Current Size (cm) - Width 0.4 -Current Size (cm) - Depth 0.2 -Total Square Cm 0.44 -Photo Taken No -Tunneling No -Undermining/Tunneling No -Circular Undermining No -Exudate Amt Small -Exudate Type Serous -Wound Margin Flat & Intact -Granulation Amt Large (67-100%) -Granulation Quality Pale,[place] -Necrosis Amt Small (1-33%) -Necrotic Tissue Type Adherent Slough -Texture (Meghan-wound Skin Appearance) Assessed -Moisture (Meghan-wound Skin Appearance) Assessed -Color (Meghan-wound Skin Appearance) Assessed -Temperature (Meghan-wound Skin No Abnormality Appearance) (Pt Warm) -Tenderness on Palpation (Meghan-wound No Skin Appearance) -Ulcer Cleansing Rinsed/ Irrigated with Saline -Foul Odor after Cleansing No -Anesthetic Used 5% Lidocaine Gel Lower Limb Edema Present NA - Nurse 2 - General Ulcer CM Notes Start: 09/24/23 11:18 Freq: Status: Active Protocol: Activity Type Activity Date Activity User E-sign Co-sign Detail Recorded Client Recorded Date Recorded By Document 09/24/23 11:53 [facility] Desktop 09/24/23 11:56 [facility] 09/24/23 11:53 Wound Center Nurse 2 #2 RT MED ANKLE -Post Debridement (cm) - Length 0.8 -Post Debridement (cm) - Width 0.6 -Post Debridement (cm) - Depth 0.1 -Total Square (Post) (cm) 0.48 -Area of Debridement (cm) - Length 0.8 -Area of Debridement (cm) - Width 0.6 -Total Square (Area) (cm) 0.48 -Wound/Ulcer Outcome Not Healed #1 RT LAT ANKLE CLUSTER -Post Debridement (cm) - Length 0.9 -Post Debridement (cm) - Width 0.3 -Post Debridement (cm) - Depth 0.1 -Total Square (Post) (cm) 0.27 -Wound/Ulcer Outcome Not Healed Pain Scale: 0-10 Numeric Is Patient Pain Free? Yes - Nurse 3 - General Ulcer D/C NN Start: 09/24/23 11:18 Freq: Status: Active Protocol: Activity Type Activity Date Activity User E-sign Co-sign Detail Recorded Client Recorded Date Recorded By Document 09/24/23 12:06 [place] Desktop 09/24/23 12:18 [place] 09/24/23 12:06 Wound Care Center Nurse 3 Right -Tubular Bandage Single Layer -Size of Tubigrip Used Size D -Size D ($) 1 Pain Scale: 0-10 Numeric Is Patient Pain Free? Yes - Visit Discharge Discharge Condition Stable Ambulatory Status Ambulatory, Walker Transportation Private Auto Medication Reconcilliation completed & No provided to patient/care provider Clinical Summary of Care Provided Yes Assessment/Plan Assessment/Plan (1) Pyoderma gangrenosum: CODE(S): L88 - Pyoderma gangrenosum (2) Non-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: CODE(S): L97.312 - Non-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 (3) Non-pressure chronic ulcer of right calf with fat layer exposed: CODE(S): L97.212 - Non-pressure chronic ulcer of right calf with fat layer exposed (4) Injury of peroneal tendon of right foot: CODE(S): S86.301A - Unspecified injury of muscle(s) and tendon(s) of peroneal muscle group at lower leg level, right leg, initial encounter (5) Rupture of ligament of right ankle: CODE(S): S93.401A - Sprain of unspecified ligament of right ankle, initial encounter (6) Syndesmotic disruption of right ankle: CODE(S): S93.431A - Sprain of tibiofibular ligament of right ankle, initial encounter (7) Peroneal tendinitis, right leg: CODE(S): M76.71 - Peroneal tendinitis, right leg (8) Pain in right lower leg: CODE(S): M79.661 - Pain in right lower leg (9) Surgical wound dehiscence: CODE(S): T81.31XA - Disruption of external operation (surgical) wound, not elsewhere classified, initial encounter (10) Venous insufficiency (chronic) (peripheral): CODE(S): I87.2 - Venous insufficiency (chronic) (peripheral) PLAN: Plan Patient seen and evaluated She presents today postoperatively s/p primary repair of split tear of peroneal brevis tendon, primary repair of anterior tibiofibular ligament (AITFL), and syndesmotic reduction via tight rope DOS 04/24/2023, POD #139 Currently 5 months, 2 weeks out of surgery. States pain to her right lateral ankle is continuing to improve she is continuing weight bearing to the Right foot. Denies calf pain today. Does admit to some upper leg pain where she did have dehiscence of her surgical incision site of the proximal portion of her lateral leg incision, but this is continuing to improve. She reports this did begin to open up on 06/02/2023 following lower extremity swelling secondary to her chronic venous insufficiency. She reports she was having difficulty with the Tubigrip compression which did allow for more leg swelling and opening of her surgical incision site. Dehiscence occurred 2 weeks following the removal of her sutures. Denies calf pain today. Negative Robertson sign & Negative Ro's sign. Does have some tenderness about wound site on lateral leg which is continuing to improve, and tenderness to the medial ankle with ulceration secondary pyoderma gangrenosum. She has remained protective weightbearing to the right lower extremity with surgical shoe. States the stiffness in the ankle is improving through use of therapy bands and home exercises. Discussed transition to supportive shoe gear again today which she will return to once ulcerations have healed. Encouraged continued ambulation in supportive shoe gear vs surgical shoe. Currently full weightbearing in surgical shoe without difficulty. Dressings were removed today and site was inspected. Anterior lateral ankle demonstrates well-healed cicatrix. Lateral ankle demonstrates well-healed cicatrix distally and proximally surgical dehiscence of wound with underlying ulceration. Ulceration did not undergo debridement as noted in the clinical panel above. Ulceration lateral leg measures 0.9 cm x 0.3 cm x 0.1 cm. Medial ankle ulceration measures 0.8 cm x 0.6 cm x 0.1 cm. Her pyoderma gangrenosum is responding well to the topical tacrolimus. Will continue applying topical tacrolimus 0.1% cream daily. Tubigrip compression stocking applied to the lower extremity. She was also encouraged to transition to full weightbearing to the right lower extremity in supportive shoe gear and elevate lower extremity at all times of rest for edema control. On 08/28/2023 she demonstrated worsening of the medial and lateral ulcerative sites with deep purple violaceous border and hypertrophy of the wound bed and was started on oral steroid for possible pyoderma gangrenosum. She returned again on 09/03/2023 following oral steroid with noted improvement in tissue color surrounding the ulcerative sites and decreasing hypertrophy of the wound bed tissue. Pain also noted to be improving following oral steroid. Debridement was stopped and oral steroid was started with plan to monitor response. There is a significant improvement with reduction in size of the ulceration versus previous visit. She is discussing with Rheumatology and Loan Processor utilizing new medication once wound is healed. Patient is currently on immunosuppressant agents for autoimmune disease As precaution I did start her on second round of oral antibiotic course Rx doxycycline 100 mg twice daily x 28 days and Augmentin 875 twice daily x 28 days (stop date 09/24/2023). She was also started on oral steroid, Medrol Dosepak for short course on 08/28/23. She did return on 09/03/2023 with demonstrated improvement in color of the surrounding tissue and decreased progression of her ulcerative sites. Patient is stating the pain is improved following the use of the steroid and the steroid course was extended as I do feel she has pyoderma gangrenosum. 09/10/2023 she was prescribed topical tacrolimus 0.1% to apply the wound bed daily. Will continue the topical steroid which is working and she is demonstrating healing of ulcerative sites, will continue to monitor. At this time she does continue to demonstrate healing progress of the wound and local tissue. Discussed adequate protein intake to aid in wound healing. Oscar supplementation recommended. Discussed continuing range of motion exercises while nonweightbearing, including working with resistance bands to increase lower extremity strength. Discussed as wound nears closure physical therapy will be implemented to improve strength and motion to the right lower extremity. Discussed transition to supportive shoe gear to the right lower extremity. Discussed weight bearing in supportive shoe gear today. Her gait is noted to be much improved versus prior to surgical intervention. Discussed once wound has healed we will begin physical therapy to increase strength and flexibility of the right lower extremity. At this time overall prognosis is good but complicated due to surgical dehiscence/pyoderma gangrenosum, will continue topical tacrolimus. Venous studies were performed 07/09/2023, no evidence of DVT. Valvular competence appears intact within the proximal deep venous system bilaterally. Great saphenous vein appears bilaterally patent and compressible segmentally. Saphenofemoral junctions are bilaterally competent. There is segmental valvular incompetence noted in the great saphenous veins bilaterally small saphenous veins patent and competent on the right and patent and incompetent on the left. There are several incompetent accessory saphenous veins and tributaries in the right lower extremity and 2 accessory saphenous veins of the left calf are incompetent. Discussed signs and symptoms of infection. Discussed with her if she notices increasing redness about the ulcerative site that moves up the leg, purulent drainage from the ulcerative site, increasing foul odor from the ulcerative site, or if she develops fever greater than 101 degree, develops nausea, vomiting, chills, these are signs of a progressing infection and she should report to the ED for IV antibiotics. She voices understanding of this today. The following work up and care recommendations were made: Dressing: Tacrolimus ointment, Adaptic, Dry sterile dressing. Change dressing daily Wash: Soap and water Tissue growth optimization: Topical tacrolimus Offload: To transition to full weightbearing to the right lower extremity in supportive shoe gear. foot. Patient was previously in CAM boot until surgical wound dehiscence. Transitioned back to surgical shoe to allow for decreased pressure at the wound site on the leg. Vascular: DP and PT pulses palpable with adequate capillary fill time to digits. Edema: Patient does have chronic venous insufficiency with bilateral lower extremity edema. Tubigrip compression is applied. Once wound is closed she will return to her prescription compression stockings. Infection: No signs of infection. Pain: May take [id number] Tylenol for discomfort Host factors: Chronic venous insufficiency, autoimmune disease, pyoderma gangrenosum I answered all the patient's questions. To return to the wound healing center in 1 week or call sooner if the patient has any questions or concerns. Will RTC for continued wound healing and postoperative care s/p primary repair of split tear of peroneal brevis tendon, primary repair of anterior tibiofibular ligament (AITFL), and syndesmotic repair via tight rope right lower extremity.
--- NOTE | 2023-09-25 12:32 | WC ---
4.4.24 RT MED ANKLE
--- NOTE | 2023-09-25 12:33 | WC ---
4.4.24 RT LAT ANKLE
[2023-10-08 11:06] VITALS: BP 163/90; PULSE 89; RESP 16; TEMP 37.1
--- NOTE | 2023-10-08 13:06 | PCM.WC.PN ---
History of Present Illness Date of Service: 10/08/23 Chief Complaint: Surgical wound dehiscence right leg History of Wound: Patient is a 38-year-old female who subsequently developed a surgical wound dehiscence of her right lateral lower extremity. She previously underwent surgery for primary repair of split tear of the peroneus brevis tendon, primary repair of anterior tibiofibular ligament (AITFL), and syndesmotic reduction via tight rope of the right lower extremity on 04/24/2023. Following removal of sutures she developed surgical wound dehiscence secondary to continued lower extremity swelling via chronic venous insufficiency. She did undergo debridement in office 06/05/2023 and Deidre was applied at this time with Tubigrip compression. She has worn compression stockings to manage lower extremity swelling prior to surgical intervention. Patient is also noted to have autoimmune disease and is managed by rheumatology with medication and did resume all medications 2 weeks post operative per rheumatology. She was referred to the wound care center for continued wound healing. She has been applying Deidre and dry sterile dressings daily. She denies N/V/F/chills. Denies further complaints. Subjective Subjective Patient is a 38-year-old female who presents to the wound care center today for f/u of a right lateral leg surgical dehiscence s/p repair of split tear of peroneal brevis tendon, AITFL ligament repair, and syndesmotic repair of the right ankle. She reports she is continuing to walk with the surgical shoe. She is continuing to work with resistance bands at home and doing home exercises to increase strength to lower extremity. She has been continuing to apply the topical tacrolimus ointment and is demonstrating continued improvement and she can tell ulcers are nearing closure. She denies constitutional symptoms today. Denies further complaints today. Objective Data Objective Data Vital Signs: Vital Signs Temp Pulse Resp BP O2 Del Method 98.7 F 89 16 163/90 H Room Air 10/08/23 11:06 10/08/23 11:10/08/23 11:10/08/23 11:09/24/23 11:19 Oxygen Delivery Method Room Air Physical Exam Const alert, oriented x3 and no apparent distress General Appearance: cooperative HEENT normocephalic Eyes General Eye: normal appearance of both eyes Neck General: normal visual inspection Lymph Lymphatic: no lymphadenopathy noted and no lymphedema noted Resp normal respiratory effort Cardio regular rate and regular rhythm Extremity normal capillary refill, no joint enlargement, no calf tenderness and no pedal edema Extremity Narrative: DP and PT pulses palpable bilateral. Capillary fill time less than 3 seconds to digits bilateral. Dermatological: There is bilateral lower extremity edema secondary to chronic venous stasis with some hemosiderin deposition noted about the right lower extremity. There is a surgical dehiscence of the proximal incision on the right lower extremity with subsequent ulceration. Ulceration demonstrates mixed fibrogranular layer with scant serosanguineous drainage. Surrounding skin does have resolving rubor secondary to chronic venous stasis in addition to autoimmune disease. Ulceration demonstrates no signs of infection. Distal aspect of the incision right lateral leg is a well-healed cicatrix. Anterior lateral leg demonstrates well-healed cicatrix. No signs of infection. Medial ankle wound secondary to autoimmune response with rubor noted with some tenderness to palpation. - Improving ulcerations with use of topical tacrolimus ointment On 08/28/2023 she demonstrated worsening of the medial and lateral ulcerative sites with deep purple violaceous border and hypertrophy of the wound bed and was started on oral steroid for possible pyoderma gangrenosum. She returned again on 09/03/2023 following oral steroid with noted improvement in tissue color surrounding the ulcerative sites and decreasing hypertrophy of the wound bed tissue. Pain also noted to be improving following oral steroid. Debridement to be stopped. Musculoskeletal: Muscle strength 5 of 5 age-appropriate. No pain to palpation about the lateral leg of the right lower extremity. Skin no rashes or lesions noted, skin turgor normal and no jaundice Neuro moves all extremities Debridement Note Debridement Note No debridement was completed: No debridement was completed today Post-Debridement Measurements and Additional Note: Post-Debridement Measurements/Treatment - Nurse 1 - General Ulcer Assessment Start: 09/24/23 11:18 Freq: Status: Active Protocol: [email or web address] Activity Type Activity Date Activity User E-sign Co-sign Detail Recorded Client Recorded Date Recorded By Document 09/24/23 11:19 MT Desktop 09/24/23 11:27 MT Document 10/08/23 11:06 ML Desktop 10/08/23 11:16 ML 09/24/23 10/08/23 11:19 11:06 - Today's Visit Information Type of service Follow-up Visit Follow-up Visit (Physician/MECHANICAL FACILITIES TECHNICIAN (Physician/MECHANICAL FACILITIES TECHNICIAN ) ) Arrival Mode Ambulatory, Ambulatory Walker Transfer Assistance None Accompanied by self Patient Identification Verified (Name & Yes ) Patient Requires Transmission-Based No Precautions Safety Precautions Fall Prevention Vital Signs Temperature (97.8 F-99.1 F) 98 F 98.7 F Temperature Source Temporal Temporal Pulse Rate (60-100) 83 89 Pulse Location Monitor Monitor Respiratory Rate (12-18) 18 16 Respiratory rate source Observation Observation Oxygen Delivery Method Room Air Blood Pressure (90/60-120/80) 150/68 H 163/90 H Blood Pressure Mean (mm Hg) 95 114 Source Monitor Monitor Position Sitting Blood Pressure Location Left Arm History Since Last Visit- (Skip if this is Patient's initial visit) Have you changed medications since your No last visit? Any new allergies or adverse reactions No Had a fall/change in ADL's that may No increase risk of falls Signs or symptoms of abuse and/or No neglect since last visit Have you been in the hospital since your No last visit? Has dressing in place as prescribed Yes Has compression in place as prescribed N/A Yes Has offloadiing in place as prescribed N/A Yes Experienced any changes in pain level or No management Left Footwear Regular Shoe Surgical Shoe with pressure relief insole Right Footwear Regular Shoe Regular Shoe Pain Scale: 0-10 Numeric Is Patient Pain Free? Yes Yes - Nurse 1 - General Ulcer Measurement Start: 09/24/23 11:18 Freq: Status: Active Protocol: Activity Type Activity Date Activity User E-sign Co-sign Detail Recorded Client Recorded Date Recorded By Document 09/24/23 11:19 MT Desktop 09/24/23 11:27 MT Document 10/08/23 11:06 ML Desktop 10/08/23 11:16 ML 09/24/23 10/08/23 11:19 11:06 Wound Center Nurse 1 #2 RT MED ANKLE -Current Size (cm) - Length 0.9 0.8 -Current Size (cm) - Width 1.0 0.5 -Current Size (cm) - Depth 0.3 0.1 -Total Square Cm 0.90 0.40 -Exudate Amt Small Medium -Exudate Type Serous Serosanguineous -Wound Margin Flat & Intact Distinct, Outline Attached -Granulation Amt Large (67-100%) Medium (34-66%) -Granulation Quality Pale,[place] -Slough/Fibrin Yes -Necrosis Amt Small (1-33%) Medium (34-66%) -Necrotic Tissue Type Adherent Slough Adherent Slough -Texture (Meghan-wound Skin Appearance) Assessed No Abnormality -Moisture (Meghan-wound Skin Appearance) Assessed No Abnormality -Color (Meghan-wound Skin Appearance) Assessed No Abnormality -Temperature (Meghan-wound Skin No Abnormality No Abnormality Appearance) (Pt Warm) (Pt Warm) -Tenderness on Palpation (Meghan-wound No No Skin Appearance) -Ulcer Cleansing Rinsed/ Irrigated with Saline -Foul Odor after Cleansing No -Anesthetic Used 5% Lidocaine Gel #1 RT LAT ANKLE CLUSTER -Current Size (cm) - Length 1.1 0.5 -Current Size (cm) - Width 0.4 0.3 -Current Size (cm) - Depth 0.2 0.1 -Total Square Cm 0.44 0.15 -Photo Taken No -Epithelialization Medium 34-66% -Tunneling No -Undermining/Tunneling No -Circular Undermining No -Exudate Amt Small Medium -Exudate Type Serous Serosanguineous -Wound Margin Flat & Intact Distinct, Outline Attached -Granulation Amt Large (67-100%) Medium (34-66%) -Granulation Quality Pale,[place] -Slough/Fibrin Yes -Necrosis Amt Small (1-33%) Medium (34-66%) -Necrotic Tissue Type Adherent Slough Adherent Slough -Texture (Meghan-wound Skin Appearance) Assessed No Abnormality -Moisture (Meghan-wound Skin Appearance) Assessed No Abnormality -Color (Meghan-wound Skin Appearance) Assessed No Abnormality -Temperature (Meghan-wound Skin No Abnormality No Abnormality Appearance) (Pt Warm) (Pt Warm) -Tenderness on Palpation (Meghan-wound No No Skin Appearance) -Ulcer Cleansing Rinsed/ Rinsed/ Irrigated with Irrigated with Saline Saline -Foul Odor after Cleansing No No -Anesthetic Used 5% Lidocaine Gel Lower Limb Edema Present NA Right Calf (cm) 42 Right Ankle (cm) 27.5 WC - Nurse 2 - General Ulcer CM Notes Start: 09/24/23 11:18 Freq: Status: Active Protocol: Activity Type Activity Date Activity User E-sign Co-sign Detail Recorded Client Recorded Date Recorded By Document 09/24/23 11:53 BMF Desktop 09/24/23 11:56 BMF Document 10/08/23 11:24 BMF Desktop 10/08/23 11:26 BMF 09/24/23 10/08/23 11:53 11:24 Wound Center Nurse 2 #2 RT MED ANKLE -Post Debridement (cm) - Length 0.8 -Post Debridement (cm) - Width 0.6 -Post Debridement (cm) - Depth 0.1 -Total Square (Post) (cm) 0.48 -Area of Debridement (cm) - Length 0.8 -Area of Debridement (cm) - Width 0.6 -Total Square (Area) (cm) 0.48 -Tunneling No -Undermining/Tunneling No -Wound/Ulcer Outcome Not Healed Not Healed #1 RT LAT ANKLE CLUSTER -Post Debridement (cm) - Length 0.9 -Post Debridement (cm) - Width 0.3 -Post Debridement (cm) - Depth 0.1 -Total Square (Post) (cm) 0.27 -Tunneling No -Undermining/Tunneling No -Circular Undermining No -Wound/Ulcer Outcome Not Healed Not Healed -Bleeding Controlled with NA Pain Scale: 0-10 Numeric Is Patient Pain Free? Yes Yes - Nurse 3 - General Ulcer D/C NN Start: 09/24/23 11:18 Freq: Status: Active Protocol: Activity Type Activity Date Activity User E-sign Co-sign Detail Recorded Client Recorded Date Recorded By Document 09/24/23 12:06 MT Desktop 09/24/23 12:18 MT Document 10/08/23 11:35 Desktop 10/08/23 11:36 DL 09/24/23 10/08/23 12:06 11:35 Wound Care Center Nurse 3 #2 RT MED ANKLE -Ulcer Cleansing Rinsed/ Irrigated with Saline -Foul Odor after Cleansing No -Primary Dressing Covered/Secured with Dry Gauze & Roll Gauze, Secured with Tape #1 RT LAT ANKLE CLUSTER -Ulcer Cleansing Rinsed/ Irrigated with Saline -Foul Odor after Cleansing No -Primary Dressing Covered/Secured with Dry Gauze & Roll Gauze, Secured with Tape Right -Tubular Bandage Single Layer Single Layer -Size of Tubigrip Used Size D Size D -Size D ($) 1 1 Treatment Response Procedure Tolerated Well Pain Scale: 0-10 Numeric Is Patient Pain Free? Yes Yes - Visit Discharge Discharge Condition Stable Stable Ambulatory Status Ambulatory, Ambulatory, Walker Walker Transportation Private Auto Private Auto Medication Reconcilliation completed & No provided to patient/care provider Clinical Summary of Care Provided Yes Assessment/Plan Assessment/Plan (1) Pyoderma gangrenosum: CODE(S): L88 - Pyoderma gangrenosum (2) Non-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: CODE(S): L97.312 - Non-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 (3) Non-pressure chronic ulcer of right calf with fat layer exposed: CODE(S): L97.212 - Non-pressure chronic ulcer of right calf with fat layer exposed (4) Injury of peroneal tendon of right foot: CODE(S): S86.301A - Unspecified injury of muscle(s) and tendon(s) of peroneal muscle group at lower leg level, right leg, initial encounter (5) Rupture of ligament of right ankle: CODE(S): S93.401A - Sprain of unspecified ligament of right ankle, initial encounter (6) Syndesmotic disruption of right ankle: CODE(S): S93.431A - Sprain of tibiofibular ligament of right ankle, initial encounter (7) Peroneal tendinitis, right leg: CODE(S): M76.71 - Peroneal tendinitis, right leg (8) Pain in right lower leg: CODE(S): M79.661 - Pain in right lower leg (9) Surgical wound dehiscence: CODE(S): T81.31XA - Disruption of external operation (surgical) wound, not elsewhere classified, initial encounter (10) Venous insufficiency (chronic) (peripheral): CODE(S): I87.2 - Venous insufficiency (chronic) (peripheral) PLAN: Plan Patient seen and evaluated She presents today postoperatively s/p primary repair of split tear of peroneal brevis tendon, primary repair of anterior tibiofibular ligament (AITFL), and syndesmotic reduction via tight rope DOS 04/24/2023, POD #167 Currently 5 months, 3 weeks out of surgery. States pain to her right lateral ankle is continuing to improve she is continuing weight bearing to the Right foot. Denies calf pain today. Pain in leg is improving about wounds. She reports this did begin to open up on 06/02/2023 following lower extremity swelling secondary to her chronic venous insufficiency. Dehiscence occurred 2 weeks following the removal of her sutures. Denies calf pain today. Negative Robertson sign & Negative Ro's sign. States no pain along peroneal tendon or to eversion of the foot or at anterior lateral ankle overlying the ATIFL. Does have tenderness to the medial and lateral ankle ulceration secondary pyoderma gangrenosum. She has remained protective weightbearing to the right lower extremity with surgical shoe. States the stiffness in the ankle has improved through use of therapy bands and home exercises. Discussed transition to supportive shoe gear again today which she will return to once ulcerations have healed. Encouraged continued ambulation in supportive shoe gear vs surgical shoe. Currently full weightbearing in surgical shoe without difficulty. Dressings were removed today and site was inspected. Anterior lateral ankle demonstrates well-healed cicatrix. Lateral ankle demonstrates well-healed cicatrix distally and proximally surgical dehiscence of wound with underlying ulceration. Ulceration did not undergo debridement as noted in the clinical panel above. Ulceration lateral leg measures 0.5 cm x 0.1 cm x 0.1 cm. Medial ankle ulceration measures 0.5 cm x 0.5 cm x 0.1 cm. Her pyoderma gangrenosum is responding well to the topical tacrolimus and ulcerations are decreasing in size. Will continue applying topical tacrolimus 0.1% cream daily. Tubigrip compression stocking applied to the lower extremity. She was also encouraged to transition to full weightbearing to the right lower extremity in supportive shoe gear and elevate lower extremity at all times of rest for edema control. On 08/28/2023 she demonstrated worsening of the medial and lateral ulcerative sites with deep purple violaceous border and hypertrophy of the wound bed and was started on oral steroid for possible pyoderma gangrenosum. She returned again on 09/03/2023 following oral steroid with noted improvement in tissue color surrounding the ulcerative sites and decreasing hypertrophy of the wound bed tissue. Pain also noted to be improving following oral steroid at that time. Debridement was stopped and oral steroid was started continued for additional week following addition of topical Tacrolimus with plan to monitor response. There is a significant improvement with reduction in size of the ulceration versus previous visit. She is discussing with Rheumatology and Terminal Superintendent utilizing new medication once wound is healed. Patient is currently on immunosuppressant agents for autoimmune disease Patient is stating the pain is improved following the use of the steroid and the steroid course was extended as I do feel she has pyoderma gangrenosum. 09/10/2023 she was prescribed topical tacrolimus 0.1% to apply the wound bed daily. Will continue the topical steroid which is working and she is demonstrating healing of ulcerative sites, will continue to monitor. At this time she does continue to demonstrate healing progress of the wound and local tissue. Ulcerations are nearing closure. Discussed adequate protein intake to aid in wound healing. Oscar supplementation recommended. Discussed continuing range of motion exercises while nonweightbearing, including working with resistance bands to increase lower extremity strength. Discussed as wound nears closure physical therapy will be implemented to improve strength and motion to the right lower extremity. Discussed transition to supportive shoe gear to the right lower extremity. Discussed weight bearing in supportive shoe gear today. Her gait is noted to be much improved versus prior to surgical intervention. Discussed once wound has healed we will begin physical therapy to increase strength and flexibility of the right lower extremity. At this time overall prognosis is good but complicated due to surgical dehiscence/pyoderma gangrenosum, will continue topical tacrolimus. Venous studies were performed 07/09/2023, no evidence of DVT. Valvular competence appears intact within the proximal deep venous system bilaterally. Great saphenous vein appears bilaterally patent and compressible segmentally. Saphenofemoral junctions are bilaterally competent. There is segmental valvular incompetence noted in the great saphenous veins bilaterally small saphenous veins patent and competent on the right and patent and incompetent on the left. There are several incompetent accessory saphenous veins and tributaries in the right lower extremity and 2 accessory saphenous veins of the left calf are incompetent. Discussed signs and symptoms of infection. Discussed with her if she notices increasing redness about the ulcerative site that moves up the leg, purulent drainage from the ulcerative site, increasing foul odor from the ulcerative site, or if she develops fever greater than 101 degree, develops nausea, vomiting, chills, these are signs of a progressing infection and she should report to the ED for IV antibiotics. She voices understanding of this today. The following work up and care recommendations were made: Dressing: Tacrolimus ointment, Adaptic, Dry sterile dressing. Change dressing daily Wash: Soap and water Tissue growth optimization: Topical tacrolimus Offload: To transition to full weightbearing to the right lower extremity in supportive shoe gear. foot. Patient was previously in CAM boot until surgical wound dehiscence. Transitioned back to surgical shoe to allow for decreased pressure at the wound site on the leg. Vascular: DP and PT pulses palpable with adequate capillary fill time to digits. Edema: Patient does have chronic venous insufficiency with bilateral lower extremity edema. Tubigrip compression is applied. Once wound is closed she will return to her prescription compression stockings. Infection: No signs of infection. Pain: May take [id number] Tylenol for discomfort Host factors: Chronic venous insufficiency, autoimmune disease, pyoderma gangrenosum I answered all the patient's questions. To return to the wound healing center in 1 week or call sooner if the patient has any questions or concerns. Will RTC for continued wound healing and postoperative care s/p primary repair of split tear of peroneal brevis tendon, primary repair of anterior tibiofibular ligament (AITFL), and syndesmotic repair via tight rope right lower extremity.
[2023-10-15 11:10] VITALS: BP 153/78; PULSE 98; RESP 18; TEMP 36.6
--- NOTE | 2023-10-15 12:44 | PN.PCM_ITS ---
History of Present Illness Date of Service: 10/15/23 Chief Complaint: Surgical wound dehiscence right leg History of Wound: Patient is a 38-year-old female who subsequently developed a surgical wound dehiscence of her right lateral lower extremity. She previously underwent surgery for primary repair of split tear of the peroneus brevis tendon, primary repair of anterior tibiofibular ligament (AITFL), and syndesmotic reduction via tight rope of the right lower extremity on 04/24/2023. Following removal of sutures she developed surgical wound dehiscence secondary to continued lower extremity swelling via chronic venous insufficiency. She did undergo debridement in office 06/05/2023 and Deidre was applied at this time with Tubigrip compression. She has worn compression stockings to manage lower extremity swelling prior to surgical intervention. Patient is also noted to have autoimmune disease and is managed by rheumatology with medication and did resume all medications 2 weeks post operative per rheumatology. She was referred to the wound care center for continued wound healing. She has been applying Deidre and dry sterile dressings daily. She denies N/V/F/chills. Denies further complaints. Subjective Subjective Patient is a 38-year-old female who presents to the wound care center today for f/u of a right lateral leg surgical dehiscence s/p repair of split tear of peroneal brevis tendon, AITFL ligament repair, and syndesmotic repair of the right ankle. She reports she is continuing to walk with the surgical shoe. She is continuing to work with resistance bands at home and doing home exercises to increase strength to lower extremity. She has been continuing to apply the topical tacrolimus ointment and is demonstrating continued improvement and she can tell there is improvement with ulcers on medial and lateral leg nearing closure. She denies constitutional symptoms today. Denies further complaints today. Objective Data Objective Data Vital Signs: Vital Signs Temp Pulse Resp BP O2 Del Method 97.8 F 98 18 153/78 H Room Air 10/15/23 11:10 10/15/23 11:10 10/15/23 11:10 10/15/23 11:10 10/15/23 11:10 Oxygen Delivery Method Room Air Physical Exam Const alert, oriented x3 and no apparent distress General Appearance: cooperative HEENT normocephalic Eyes General Eye: normal appearance of both eyes Neck General: normal visual inspection Lymph Lymphatic: no lymphadenopathy noted and no lymphedema noted Resp normal respiratory effort Cardio regular rate and regular rhythm Extremity normal capillary refill, no joint enlargement, no calf tenderness and no pedal edema Extremity Narrative: DP and PT pulses palpable bilateral. Capillary fill time less than 3 seconds to digits bilateral. Dermatological: There is bilateral lower extremity edema secondary to chronic venous stasis with some hemosiderin deposition noted about the right lower extremity. There is a surgical dehiscence of the proximal incision on the right lower extremity with subsequent ulceration. Ulceration demonstrates mixed fibrogranular layer with scant serosanguineous drainage. Surrounding skin does have resolving rubor secondary to chronic venous stasis in addition to aut oimmune disease. Ulceration demonstrates no signs of infection. Distal aspect of the incision right lateral leg is a well-healed cicatrix. Anterior lateral leg demonstrates well-healed cicatrix. No signs of infection. Medial ankle wound secondary to autoimmune response with rubor noted with some tenderness to palpation. - Improving ulcerations with use of topical tacrolimus ointment On 08/28/2023 she demonstrated worsening of the medial and lateral ulcerative sites with deep purple violaceous border and hypertrophy of the wound bed and was started on oral steroid for possible pyoderma gangrenosum. She returned again on 09/03/2023 following oral steroid with noted improvement in tissue color surrounding the ulcerative sites and decreasing hypertrophy of the wound bed tissue. Pain also noted to be improving following oral steroid. Debridement to be stopped. Musculoskeletal: Muscle strength 5 of 5 age-appropriate. No pain to palpation about the lateral leg of the right lower extremity. Skin no rashes or lesions noted, skin turgor normal and no jaundice Neuro moves all extremities Debridement Note Debridement Note No debridement was completed: No debridement was completed today Post-Debridement Measurements and Additional Note: Post-Debridement Measurements/Treatment NEELA - Nurse 1 - General Ulcer Assessment Start: 09/24/23 11:18 Freq: Status: Active Protocol: STEFANOEXT Activity Type Activity Date Activity User E-sign Co-sign Detail Recorded Client Recorded Date Recorded By Document 09/24/23 11:19 MT Desktop 09/24/23 11:27 MT Document 10/08/23 11:06 ML Desktop 10/08/23 11:16 ML Document 10/15/23 11:10 KW Desktop 10/15/23 11:18 KW 09/24/23 10/08/2324 11:19 11:06 11:10 WC - Today's Visit Information Type of service Follow-up Visit Follow-up Visit Follow-up Visit (Physician/COUNSELOR/ART THERAPIST (Physician/COUNSELOR/ART THERAPIST (Physician/COUNSELOR/ART THERAPIST ) ) ) Arrival Mode Ambulatory, Ambulatory Ambulatory, Walker Other Arrival Mode (Other) KNEE SCOOTER Transfer Assistance None Accompanied by self Patient Identification Verified (Name & Yes Yes ) Patient Requires Transmission-Based No Precautions Safety Precautions Fall Prevention Vital Signs Temperature (97.8 F-99.1 F) 98 F 98.7 F 97.8 F Temperature Source Temporal Temporal Temporal Pulse Rate (60-100) 83 89 98 Pulse Location Monitor Monitor Monitor Respiratory Rate (12-18) 18 16 18 Respiratory rate source Observation Observation Observation Oxygen Delivery Method Room Air Room Air Blood Pressure (90/60-120/80) 150/68 H 163/90 H 153/78 H Blood Pressure Mean (mm Hg) 95 114 103 Source Monitor Monitor Monitor Position Sitting Semi-Fowlers Blood Pressure Location Left Arm Left Arm History Since Last Visit- (Skip if this is Patient's initial visit) Have you changed medications since your No No last visit? Any new allergies or adverse reactions No No Had a fall/change in ADL's that may No No increase risk of falls Signs or symptoms of abuse and/or No No neglect since last visit Have you been in the hospital since your No No last visit? Has dressing in place as prescribed Yes Yes Has compression in place as prescribed N/A Yes Yes Has offloadiing in place as prescribed N/A Yes Yes Experienced any changes in pain level or No No management Left Footwear Regular Shoe Surgical Shoe Regular Shoe with pressure relief insole Right Footwear Regular Shoe Regular Shoe Surgical Shoe with pressure relief insole Pain Scale: 0-10 Numeric Is Patient Pain Free? Yes Yes Yes - Nurse 1 - General Ulcer Measurement Start: 09/24/23 11:18 Freq: Status: Active Protocol: Activity Type Activity Date Activity User E-sign Co-sign Detail Recorded Client Recorded Date Recorded By Document 09/24/23 11:19 MT Desktop 09/24/23 11:27 MT Document 10/08/23 11:06 ML Desktop 10/08/23 11:16 ML Document 10/15/23 11:10 KW Desktop 10/15/23 11:18 KW 09/24/23 10/08/23 10/15/23 11:19 11:06 11:10 Wound Center Nurse 1 #2 RT MED ANKLE -Current Size (cm) - Length 0.9 0.8 0.5 -Current Size (cm) - Width 1.0 0.5 0.5 -Current Size (cm) - Depth 0.3 0.1 0.1 -Total Square Cm 0.90 0.40 0.25 -Epithelialization Large 67-100% -Exudate Amt Small Medium Small -Exudate Type Serous Serosanguineous Serosanguineous -Wound Margin Flat & Intact Distinct, Outline Attached -Granulation Amt Large (67-100%) Medium (34-66%) Large (67-100%) -Granulation Quality Pale,[place] Hyper- granulation,Red -Slough/Fibrin Yes -Necrosis Amt Small (1-33%) Medium (34-66%) -Necrotic Tissue Type Adherent Slough Adherent Slough -Texture (Meghan-wound Skin Appearance) Assessed No Abnormality Assessed -Moisture (Meghan-wound Skin Appearance) Assessed No Abnormality Assessed -Color (Meghan-wound Skin Appearance) Assessed No Abnormality Assessed -Temperature (Meghan-wound Skin No Abnormality No Abnormality No Abnormality Appearance) (Pt Warm) (Pt Warm) (Pt Warm) -Tenderness on Palpation (Meghan-wound No No Skin Appearance) -Ulcer Cleansing Rinsed/ Rinsed/ Irrigated with Irrigated with Saline Saline -Foul Odor after Cleansing No -Anesthetic Used 5% Lidocaine Gel #1 RT LAT ANKLE CLUSTER -Current Size (cm) - Length 1.1 0.5 0.1 -Current Size (cm) - Width 0.4 0.3 0.1 -Current Size (cm) - Depth 0.2 0.1 0.1 -Total Square Cm 0.44 0.15 0.01 -Photo Taken No -Epithelialization Medium 34-66% Large 67-100% -Tunneling No -Undermining/Tunneling No -Circular Undermining No -Exudate Amt Small Medium None Present -Exudate Type Serous Serosanguineous -Wound Margin Flat & Intact Distinct, Outline Attached -Granulation Amt Large (67-100%) Medium (34-66%) -Granulation Quality Pale,[place] -Slough/Fibrin Yes -Necrosis Amt Small (1-33%) Medium (34-66%) -Necrotic Tissue Type Adherent Slough Adherent Slough -Texture (Meghan-wound Skin Appearance) Assessed No Abnormality Assessed -Moisture (Meghan-wound Skin Appearance) Assessed No Abnormality Assessed -Color (Meghan-wound Skin Appearance) Assessed No Abnormality Assessed -Temperature (Meghan-wound Skin No Abnormality No Abnormality No Abnormality Appearance) (Pt Warm) (Pt Warm) (Pt Warm) -Tenderness on Palpation (Meghan-wound No No No Skin Appearance) -Ulcer Cleansing Rinsed/ Rinsed/ Rinsed/ Irrigated with Irrigated with Irrigated with Saline Saline Saline -Foul Odor after Cleansing No No -Anesthetic Used 5% Lidocaine Gel Lower Limb Edema Present NA Right Calf (cm) 42 43 Right Ankle (cm) 27.5 27 WC - Nurse 2 - General Ulcer CM Notes Start: 09/24/23 11:18 Freq: Status: Active Protocol: Activity Type Activity Date Activity User E-sign Co-sign Detail Recorded Client Recorded Date Recorded By Document 09/24/23 11:53 [employer] 09/24/23 11:56 [employer] Document 10/08/23 11:24 [employer] Desktop 10/08/23 11:26 [email or web address] Document 10/15/23 11:28 [employer] Desktop 10/15/23 11:31 BMF 09/24/23 10/08/23 10/15/23 11:53 11:24 11:28 Wound Center Nurse 2 #2 RT MED ANKLE -Post Debridement (cm) - Length 0.8 0.4 -Post Debridement (cm) - Width 0.6 0.3 -Post Debridement (cm) - Depth 0.1 0.1 -Total Square (Post) (cm) 0.48 0.12 -Area of Debridement (cm) - Length 0.8 0.4 -Area of Debridement (cm) - Width 0.6 0.3 -Total Square (Area) (cm) 0.48 0.12 -Tunneling No -Undermining/Tunneling No -Wound/Ulcer Outcome Not Healed Not Healed Not Healed #1 RT LAT ANKLE CLUSTER -Post Debridement (cm) - Length 0.9 0.1 -Post Debridement (cm) - Width 0.3 0.1 -Post Debridement (cm) - Depth 0.1 0.1 -Total Square (Post) (cm) 0.27 0.01 -Area of Debridement (cm) - Length 0.1 -Area of Debridement (cm) - Width 0.1 -Total Square (Area) (cm) 0.01 -Tunneling No -Undermining/Tunneling No -Circular Undermining No -Wound/Ulcer Outcome Not Healed Not Healed Not Healed -Bleeding Controlled with NA Pain Scale: 0-10 Numeric Is Patient Pain Free? Yes Yes Yes - Nurse 3 - General Ulcer D/C NN Start: 09/24/23 11:18 Freq: Status: Active Protocol: Activity Type Activity Date Activity User E-sign Co-sign Detail Recorded Client Recorded Date Recorded By Document 09/24/23 12:06 MT Desktop 09/24/23 12:18 MT Document 10/08/23 11:35 DL Desktop 10/08/23 11:36 DL Document 10/15/23 11:46 RB Desktop 10/15/23 11:47 RB 09/24/23 10/08/23 10/15/23 12:06 11:35 11:46 Wound Care Center Nurse 3 #2 RT MED ANKLE -Ulcer Cleansing Rinsed/ Irrigated with Saline -Foul Odor after Cleansing No -Primary Dressing Applied NonAdherent Contact Layer -Primary Dressing Covered/Secured with Dry Gauze & Dry Gauze,Dry Roll Gauze, Gauze & Roll Secured with Gauze,Secured Tape with Tape #1 RT LAT ANKLE CLUSTER -Ulcer Cleansing Rinsed/ Irrigated with Saline -Foul Odor after Cleansing No -Primary Dressing Applied NonAdherent Contact Layer -Primary Dressing Covered/Secured with Dry Gauze & Dry Gauze,Dry Roll Gauze, Gauze & Roll Secured with Gauze,Secured Tape with Tape Right -Tubular Bandage Single Layer Single Layer Single Layer -Size of Tubigrip Used Size D Size D Size D -Size D ($) 1 1 1 Treatment Response Procedure Procedure Tolerated Well Tolerated Well Pain Scale: 0-10 Numeric Is Patient Pain Free? Yes Yes Yes - Visit Discharge Discharge Condition Stable Stable Stable Ambulatory Status Ambulatory, Ambulatory, Walker Walker Walker Transportation Private Auto Private Auto Private Auto Medication Reconcilliation completed & No No provided to patient/care provider Clinical Summary of Care Provided Yes Yes Notes: kneewalker Assessment/Plan Assessment/Plan (1) Pyoderma gangrenosum: CODE(S): L88 - Pyoderma gangrenosum (2) Non-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: CODE(S): L97.312 - Non-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 (3) Non-pressure chronic ulcer of right calf with fat layer exposed: CODE(S): L97.212 - Non-pressure chronic ulcer of right calf with fat layer exposed (4) Injury of peroneal tendon of right foot: CODE(S): S86.301A - Unspecified injury of muscle(s) and tendon(s) of peroneal muscle group at lower leg level, right leg, initial encounter (5) Rupture of ligament of right ankle: CODE(S): S93.401A - Sprain of unspecified ligament of right ankle, initial encounter (6) Syndesmotic disruption of right ankle: CODE(S): S93.431A - Sprain of tibiofibular ligament of right ankle, initial encounter (7) Peroneal tendinitis, right leg: CODE(S): M76.71 - Peroneal tendinitis, right leg (8) Pain in right lower leg: CODE(S): M79.661 - Pain in right lower leg (9) Surgical wound dehiscence: CODE(S): T81.31XA - Disruption of external operation (surgical) wound, not elsewhere classified, initial encounter (10) Venous insufficiency (chronic) (peripheral): CODE(S): I87.2 - Venous insufficiency (chronic) (peripheral) PLAN: Plan Patient seen and evaluated She presents today postoperatively s/p primary repair of split tear of peroneal brevis tendon, primary repair of anterior tibiofibular ligament (AITFL), and syndesmotic reduction via tight rope DOS 04/24/2023, POD #174 Currently 6 months out of surgery. States pain to her right lateral ankle is continuing to improve she is continuing weight bearing to the Right foot. Denies calf pain today. Pain in leg is improving about wounds. She reports this did begin to open up on 06/02/2023 following lower extremity swelling secondary to her chronic venous insufficiency. Dehiscence occurred 2 weeks following the removal of her sutures. Denies calf pain today. Negative Robertson sign & Negative Ro's sign. States no pain along peroneal tendon or to eversion of the foot or at anterior lateral ankle overlying the ATIFL. Does have tenderness to the medial and lateral ankle ulceration secondary pyoderma gangrenosum. She has remained protective weightbearing to the right lower extremity with surgical shoe. States the stiffness in the ankle has improved through use of therapy bands and home exercises. Discussed transition to supportive shoe gear again today which she will return to once ulcerations have healed. Encouraged continued ambulation in supportive shoe gear vs surgical shoe. Currently full weightbearing in surgical shoe without difficulty. Dressings were removed today and site was inspected. Anterior lateral ankle demonstrates well-healed cicatrix. Lateral ankle demonstrates well-healed cicatrix distally and proximally surgical dehiscence of wound with underlying ulceration secondary to pyroderma gangrenosum. Medial ankle wound secondary to pyroderma gangrenosum. Overall healing well. Ulceration did not undergo debridement as noted in the clinical panel above. Ulceration lateral leg measures 0.1 cm x 0.1 cm x 0.1 cm. Medial ankle ulceration measures 0.4 cm x 0.3 cm x 0.1 cm. Her pyoderma gangrenosum is responding well to the topical tacrolimus and ulcerations are decreasing in size. Will continue applying topical tacrolimus 0.1% cream daily. Tubigrip compression stocking applied to the lower extremity. She was also encouraged to transition to full weightbearing to the right lower extremity in supportive shoe gear and elevate lower extremity at all times of rest for edema control. On 08/28/2023 she demonstrated worsening of the medial and lateral ulcerative sites with deep purple violaceous border and hypertrophy of the wound bed and was started on oral steroid for possible pyoderma gangrenosum. She returned again on 09/03/2023 following oral steroid with noted improvement in tissue color surrounding the ulcerative sites and decreasing hypertrophy of the wound bed tissue. Pain also noted to be improving following oral steroid at that time. Debridement was stopped and oral steroid was started continued for additional week following addition of topical Tacrolimus with plan to monitor response. There is a significant improvement with continued reduction in size of the ulceration versus previous visit. She is discussing with Rheumatology and Leasing Consultant utilizing new medication once wound is healed. Patient is currently on immunosuppressant agents for autoimmune disease Patient is stating the pain is improved following the use of the steroid and the steroid course was extended as I do feel she has pyoderma gangrenosum. 09/10/2023 she was prescribed topical tacrolimus 0.1% to apply the wound bed daily. Will continue the topical steroid which is working and she is demonstrating healing of ulcerative sites, will continue to monitor. At this time she does continue to demonstrate healing progress of the wound and local tissue. Ulcerations are nearing closure. Discussed adequate protein intake to aid in wound healing. Oscar supplementation recommended. Discussed continuing range of motion exercises while nonweightbearing, including working with resistance bands to increase lower extremity strength. Discussed as wound nears closure physical therapy will be implemented to improve strength and motion to the right lower extremity. Discussed transition to supportive shoe gear to the right lower extremity. Her gait is noted to be much improved versus prior to surgical intervention. Discussed once wound has healed we will begin physical therapy to increase strength and flexibility of the right lower extremity. At this time overall prognosis is good but complicated due to surgical dehiscence/pyoderma gangrenosum, will continue topical tacrolimus. Venous studies were performed 07/09/2023, no evidence of DVT. Valvular competence appears intact within the proximal deep venous system bilaterally. Great saphenous vein appears bilaterally patent and compressible segmentally. Saphenofemoral junctions are bilaterally competent. There is segmental valvular incompetence noted in the great saphenous veins bilaterally small saphenous veins patent and competent on the right and patent and incompetent on the left. There are several incompetent accessory saphenous veins and tributaries in the right lower extremity and 2 accessory saphenous veins of the left calf are incompetent. Discussed signs and symptoms of infection. Discussed with her if she notices increasing redness about the ulcerative site that moves up the leg, purulent drainage from the ulcerative site, increasing foul odor from the ulcerative site, or if she develops fever greater than 101 degree, develops nausea, vomiting, chills, these are signs of a progressing infection and she should report to the ED for IV antibiotics. She voices understanding of this today. The following work up and care recommendations were made: Dressing: Tacrolimus ointment, Adaptic, Dry sterile dressing. Change dressing daily Wash: Soap and water Tissue growth optimization: Topical tacrolimus Offload: To transition to full weightbearing to the right lower extremity in supportive shoe gear. foot. Patient was previously in CAM boot until surgical wound dehiscence. Transitioned back to surgical shoe to allow for decreased pressure at the wound site on the leg. Vascular: DP and PT pulses palpable with adequate capillary fill time to digits. Edema: Patient does have chronic venous insufficiency with bilateral lower extremity edema. Tubigrip compression is applied. Once wound is closed she will return to her prescription compression stockings. Infection: No signs of infection. Pain: May take [id number] Tylenol for discomfort Host factors: Chronic venous insufficiency, autoimmune disease, pyoderma gangrenosum I answered all the patient's questions. To return to the wound healing center in 1 week or call sooner if the patient has any questions or concerns. Will RTC for continued wound healing and postoperative care s/p primary repair of split tear of peroneal brevis tendon, primary repair of anterior tibiofibular ligament (AITFL), and syndesmotic repair via tight rope right lower extremity.
== END 2023-10-20 23:59 | disposition home or self-care (01) ==
LOC: WC 11:00
PROVIDERS: PCP Internal Medicine; Referring Provider Student in an Organized Health Care Education/Training Program; Visit Provider Student in an Organized Health Care Education/Training Program
DX: T81.31XA Disruption of external operation (surgical) wound, not elsewhere classified, initial encounter (principal); L97.312 Non-pressure chronic ulcer of right 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; L97.212 Non-pressure chronic ulcer of right calf with fat layer exposed; L88 Pyoderma gangrenosum; S93.431S Sprain of tibiofibular ligament of right ankle, sequela; I87.2 Venous insufficiency (chronic) (peripheral); M76.71 Peroneal tendinitis, right leg; M35.9 Systemic involvement of connective tissue, unspecified; Z79.82 Long term (current) use of aspirin; Z79.899 Other long term (current) drug therapy
CPT/HCPCS: 99213; G0463

== ENCOUNTER 2023-11-12 11:00 | Outpatient (RCR) | payer MEDICARE, MEDICAID, SELFPAY ==
[2023-10-21 00:41] VITALS: BP 153/78; PULSE 98; RESP 18; TEMP 36.6
[2023-10-22 11:19] VITALS: BP 132/90; PULSE 95; RESP 18; TEMP 36.7
--- NOTE | 2023-10-22 12:41 | PCM.WC.PN ---
History of Present Illness Date of Service: 10/22/23 Chief Complaint: Surgical wound dehiscence right leg History of Wound: Patient is a 38-year-old female who subsequently developed a surgical wound dehiscence of her right lateral lower extremity. She previously underwent surgery for primary repair of split tear of the peroneus brevis tendon, primary repair of anterior tibiofibular ligament (AITFL), and syndesmotic reduction via tight rope of the right lower extremity on 04/24/2023. Following removal of sutures she developed surgical wound dehiscence secondary to continued lower extremity swelling via chronic venous insufficiency. She did undergo debridement in office 06/05/2023 and Deidre was applied at this time with Tubigrip compression. She has worn compression stockings to manage lower extremity swelling prior to surgical intervention. Patient is also noted to have autoimmune disease and is managed by rheumatology with medication and did resume all medications 2 weeks post operative per rheumatology. She was referred to the wound care center for continued wound healing. She has been applying Deidre and dry sterile dressings daily. She denies N/V/F/chills. Denies further complaints. Subjective Subjective Patient is a 38-year-old female who presents to the wound care center today for f/u of a right lateral leg surgical dehiscence s/p repair of split tear of peroneal brevis tendon, AITFL ligament repair, and syndesmotic repair of the right ankle. She reports she is continuing to walk with the surgical shoe without difficulty. She is continuing to work with resistance bands at home and doing home exercises to increase strength to lower extremity. She has been continuing to apply the topical tacrolimus ointment and is demonstrating continued improvement and she can tell there is improvement with ulcers on medial and lateral leg. States lateral leg may be healed. She denies constitutional symptoms today. Denies further complaints today. Objective Data Objective Data Vital Signs: Vital Signs Temp Pulse Resp BP O2 Del Method 98.0 F 95 18 132/90 H Room Air 10/22/23 11:19 10/22/23 11:19 10/22/23 11:19 10/22/23 11:19 10/22/23 11:19 Oxygen Delivery Method Room Air Physical Exam Const alert, oriented x3 and no apparent distress General Appearance: cooperative HEENT normocephalic Eyes General Eye: normal appearance of both eyes Neck General: normal visual inspection Lymph Lymphatic: no lymphadenopathy noted and no lymphedema noted Resp normal respiratory effort Cardio regular rate and regular rhythm Extremity normal capillary refill, no calf tenderness and no pedal edema Extremity Narrative: Vascular DP and PT pulses palpable bilateral. Capillary fill time less than 3 seconds to digits bilateral. Dermatological: There is bilateral lower extremity edema secondary to chronic venous stasis with some hemosiderin deposition noted about the right lower extremity. The surgical dehiscence of the proximal incision on the right lower extremity with subsequent ulceration has healed. Surrounding skin does have resolving rubor secondary to chronic venous stasis in addition to autoimmune disease. No signs of infection. Distal aspect of the incision right lateral leg is a well-healed cicatrix. Anterior lateral leg demonstrates well-healed cicatrix. No signs of infection. Medial ankle wound secondary to autoimmune response with rubor noted with some tenderness to palpation. - Improving ulcerations with use of topical tacrolimus ointment On 08/28/2023 she demonstrated worsening of the medial and lateral ulcerative sites with deep purple violaceous border and hypertrophy of the wound bed and was started on oral steroid for possible pyoderma gangrenosum. She returned again on 09/03/2023 following oral steroid with noted improvement in tissue color surrounding the ulcerative sites and decreasing hypertrophy of the wound bed tissue. Pain also noted to be improving following oral steroid. Debridement was stopped. Musculoskeletal: Muscle strength 5 of 5 age-appropriate. No pain to palpation about the lateral leg of the right lower extremity. Skin no rashes or lesions noted, skin turgor normal and no jaundice Neuro moves all extremities Debridement Note Debridement Note No debridement was completed: No debridement was completed today Post-Debridement Measurements and Additional Note: Post-Debridement Measurements/Treatment - Nurse 1 - General Ulcer Assessment Start: 10/22/23 11:19 Freq: Status: Active Protocol: [email or web address] Activity Type Activity Date Activity User E-sign Co-sign Detail Recorded Client Recorded Date Recorded By Document 10/22/23 11:19 KW Desktop 10/22/23 11:29 KW 10/22/23 11:19 - Today's Visit Information Type of service 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-up Visit (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 Any new allergies or adverse reactions No Had a fall/change in ADL's that may No increase risk of falls Signs or symptoms of abuse and/or No neglect since last visit Have you been in the hospital since your No last visit? Has dressing in place as prescribed Yes Has compression in place as prescribed Yes Has offloadiing in place as prescribed Yes Experienced any changes in pain level or No management Left Footwear Regular Shoe Right Footwear Surgical Shoe with pressure relief insole Pain Scale: 0-10 Numeric Is Patient Pain Free? Yes WC - Nurse 1 - General Ulcer Measurement Start: 10/22/23 11:19 Freq: Status: Active Protocol: Activity Type Activity Date Activity User E-sign Co-sign Detail Recorded Client Recorded Date Recorded By Document 10/22/23 11:19 KW Desktop 10/22/23 11:29 KW 10/22/23 11:19 Wound Center Nurse 1 #2 RT MED ANKLE -Current Size (cm) - Length 0.8 -Current Size (cm) - Width 0.7 -Total Square Cm 0.56 -Date of Last Picture (Recall this 10/22/23 field) -Granulation Quality Hyper- granulation -Color (Meghan-wound Skin Appearance) Erythema -Ulcer Cleansing Rinsed/ Irrigated with Saline #1 RT LAT ANKLE CLUSTER -Current Size (cm) - Length 0.1 -Current Size (cm) - Width 0.1 -Current Size (cm) - Depth 0.1 -Total Square Cm 0.01 -Date of Last Picture (Recall this 10/22/23 field) -Granulation Quality Pale,[place] -Texture (Meghan-wound Skin Appearance) Assessed -Moisture (Meghan-wound Skin Appearance) Assessed -Color (Meghan-wound Skin Appearance) Assessed, Erythema -Temperature (Meghan-wound Skin No Abnormality Appearance) (Pt Warm) -Tenderness on Palpation (Meghan-wound No Skin Appearance) -Ulcer Cleansing Rinsed/ Irrigated with Saline Right Calf (cm) 45 Right Ankle (cm) 29.5 WC - Nurse 2 - General Ulcer CM Notes Start: 10/22/23 11:19 Freq: Status: Active Protocol: Activity Type Activity Date Activity User E-sign Co-sign Detail Recorded Client Recorded Date Recorded By Document 10/22/23 11:51 [facility] Desktop 10/22/23 11:54 [facility] 10/22/23 11:51 Wound Center Nurse 2 #2 RT MED ANKLE -Post Debridement (cm) - Length 0 -Post Debridement (cm) - Width 0 -Post Debridement (cm) - Depth 0 -Total Square (Post) (cm) 0 -Area of Debridement (cm) - Length 0 -Area of Debridement (cm) - Width 0 -Total Square (Area) (cm) 0 -Wound/Ulcer Outcome Healed- Epithelialized #1 RT LAT ANKLE CLUSTER -Post Debridement (cm) - Length 0.3 -Post Debridement (cm) - Width 0.3 -Post Debridement (cm) - Depth 0.1 -Total Square (Post) (cm) 0.09 -Area of Debridement (cm) - Length 0.3 -Area of Debridement (cm) - Width 0.3 -Total Square (Area) (cm) 0.09 -Wound/Ulcer Outcome Not Healed -Bleeding Controlled with NA Pain Scale: 0-10 Numeric Is Patient Pain Free? Yes - Nurse 3 - General Ulcer D/C NN Start: 10/22/23 11:19 Freq: Status: Active Protocol: Activity Type Activity Date Activity User E-sign Co-sign Detail Recorded Client Recorded Date Recorded By Document 10/22/23 12:04 Desktop 10/22/23 12:05 10/22/23 12:04 Wound Care Center Nurse 3 #1 RT LAT ANKLE CLUSTER -Primary Dressing Applied NonAdherent Contact Layer -Primary Dressing Covered/Secured with Dry Gauze & Roll Gauze, Secured with Tape Right -Tubular Bandage Single Layer -Size of Tubigrip Used Size D -Size D ($) 1 Pain Scale: 0-10 Numeric Is Patient Pain Free? Yes - Visit Discharge Discharge Condition Stable Ambulatory Status Ambulatory Medication Reconcilliation completed & No provided to patient/care provider Clinical Summary of Care Provided Yes Assessment/Plan Assessment/Plan (1) Pyoderma gangrenosum: CODE(S): L88 - Pyoderma gangrenosum (2) Non-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: CODE(S): L97.312 - Non-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 (3) Non-pressure chronic ulcer of right calf with fat layer exposed: CODE(S): L97.212 - Non-pressure chronic ulcer of right calf with fat layer exposed (4) Surgical wound dehiscence: CODE(S): T81.31XA - Disruption of external operation (surgical) wound, not elsewhere classified, initial encounter (5) Injury of peroneal tendon of right foot: CODE(S): S86.301A - Unspecified injury of muscle(s) and tendon(s) of peroneal muscle group at lower leg level, right leg, initial encounter (6) Rupture of ligament of right ankle: CODE(S): S93.401A - Sprain of unspecified ligament of right ankle, initial encounter (7) Syndesmotic disruption of right ankle: CODE(S): S93.431A - Sprain of tibiofibular ligament of right ankle, initial encounter (8) Peroneal tendinitis, right leg: CODE(S): M76.71 - Peroneal tendinitis, right leg (9) Pain in right lower leg: CODE(S): M79.661 - Pain in right lower leg (10) Venous insufficiency (chronic) (peripheral): CODE(S): I87.2 - Venous insufficiency (chronic) (peripheral) PLAN: Plan Patient seen and evaluated She presents today postoperatively s/p primary repair of split tear of peroneal brevis tendon, primary repair of anterior tibiofibular ligament (AITFL), and syndesmotic reduction via tight rope DOS 04/24/2023, POD #181 Currently 6 months 1 week out of surgery. States pain to her right lateral ankle is continuing to improve she is continuing weight bearing to the Right foot. Denies calf pain today. Pain in leg is improving about wounds. She reports this did begin to open up on 06/02/2023 following lower extremity swelling secondary to her chronic venous insufficiency. Dehiscence occurred 2 weeks following the removal of her sutures. Denies calf pain today. Negative Robertson sign & Negative Ro's sign. States no pain along peroneal tendon or to eversion of the foot or at anterior lateral ankle overlying the ATIFL. Does have tenderness to the medial and lateral ankle ulceration secondary pyoderma gangrenosum. She has remained protective weightbearing to the right lower extremity with surgical shoe. States the stiffness in the ankle has improved through use of therapy bands and home exercises. Discussed transition to supportive shoe gear again today which she will return to once ulcerations have healed. Encouraged continued ambulation in supportive shoe gear vs surgical shoe. Currently full weightbearing in surgical shoe without difficulty. Dressings were removed today and site was inspected. Anterior lateral ankle demonstrates well-healed cicatrix. Lateral ankle demonstrates well-healed cicatrix distally and proximally and healed ulceration. Medial ankle wound secondary to pyroderma gangrenosum. Overall healing well. Ulceration did NOT undergo debridement as noted in the clinical panel above. Ulceration lateral leg has healed today. Medial ankle ulceration measures 0.3 cm x 0.3 cm x 0.1 cm. Her pyoderma gangrenosum is responding well to the topical tacrolimus and ulcerations are decreasing in size. Will continue applying topical tacrolimus 0.1% cream daily. Tubigrip compression stocking applied to the lower extremity. She was also encouraged to transition to full weightbearing to the right lower extremity in supportive shoe gear and elevate lower extremity at all times of rest for edema control. On 08/28/2023 she demonstrated worsening of the medial and lateral ulcerative sites with deep purple violaceous border and hypertrophy of the wound bed and was started on oral steroid for possible pyoderma gangrenosum. She returned again on 09/03/2023 following oral steroid with noted improvement in tissue color surrounding the ulcerative sites and decreasing hypertrophy of the wound bed tissue. Pain also noted to be improving following oral steroid at that time. Debridement was stopped and oral steroid was started continued for additional week following addition of topical Tacrolimus with plan to monitor response. There is a significant improvement with continued reduction in size of the ulceration versus previous visit. She is discussing with Rheumatology and Adult Health Clinical Nurse Specialist utilizing new medication once wound is healed. Patient is currently on immunosuppressant agents for autoimmune disease Patient is stating the pain is improved following the use of the steroid and the steroid course was extended as I do feel she has pyoderma gangrenosum. 09/10/2023 she was prescribed topical tacrolimus 0.1% to apply the wound bed daily. Will continue the topical steroid which is working and she is demonstrating healing of ulcerative sites, will continue to monitor. At this time she does continue to demonstrate healing progress of the wound and local tissue. Ulcerations are nearing closure. Discussed adequate protein intake to aid in wound healing. She will continue Oscar supplementation. Discussed continuing range of motion exercises while nonweightbearing, including working with resistance bands to increase lower extremity strength. Discussed as wound nears closure physical therapy will be implemented to improve strength and motion to the right lower extremity. Discussed transition to supportive shoe gear to the right lower extremity. Her gait is noted to be much improved versus prior to surgical intervention. Discussed once wound has healed we will begin physical therapy to increase strength and flexibility of the right lower extremity. At this time overall prognosis is good but complicated due to surgical dehiscence/pyoderma gangrenosum, will continue topical tacrolimus. Venous studies were performed 07/09/2023, no evidence of DVT. Valvular competence appears intact within the proximal deep venous system bilaterally. Great saphenous vein appears bilaterally patent and compressible segmentally. Saphenofemoral junctions are bilaterally competent. There is segmental valvular incompetence noted in the great saphenous veins bilaterally small saphenous veins patent and competent on the right and patent and incompetent on the left. There are several incompetent accessory saphenous veins and tributaries in the right lower extremity and 2 accessory saphenous veins of the left calf are incompetent. Discussed signs and symptoms of infection. Discussed with her if she notices increasing redness about the ulcerative site that moves up the leg, purulent drainage from the ulcerative site, increasing foul odor from the ulcerative site, or if she develops fever greater than 101 degree, develops nausea, vomiting, chills, these are signs of a progressing infection and she should report to the ED for IV antibiotics. She voices understanding of this today. The following work up and care recommendations were made: Dressing: Tacrolimus ointment, Adaptic, Dry sterile dressing. Change dressing daily Wash: Soap and water Tissue growth optimization: Topical tacrolimus Offload: To transition to full weightbearing to the right lower extremity in supportive shoe gear. foot. Patient was previously in CAM boot until surgical wound dehiscence. Transitioned back to surgical shoe to allow for decreased pressure at the wound site on the leg. Vascular: DP and PT pulses palpable with adequate capillary fill time to digits. Edema: Patient does have chronic venous insufficiency with bilateral lower extremity edema. Tubigrip compression is applied. Once wound is closed she will return to her prescription compression stockings. Infection: No signs of infection. Pain: May take [id number] Tylenol for discomfort Host factors: Chronic venous insufficiency, autoimmune disease, pyoderma gangrenosum I answered all the patient's questions. To return to the wound healing center in 2 weeks or call sooner if the patient has any questions or concerns. Will RTC for continued wound healing and postoperative care s/p primary repair of split tear of peroneal brevis tendon, primary repair of anterior tibiofibular ligament (AITFL), and syndesmotic repair via tight rope right lower extremity.
--- NOTE | 2023-10-26 09:15 | WC ---
10/22/2023 RIGHT LATERAL ANKLE
--- NOTE | 2023-10-26 09:16 | WC ---
10/22/2023 RIGHT MEDIAL ANKLE
[2023-10-30 10:44] VITALS: BP 144/81; PULSE 89; RESP 18; TEMP 35.8
--- NOTE | 2023-10-30 11:43 | PCM.WC.PN ---
History of Present Illness Date of Service: 10/30/23 Chief Complaint: Surgical wound dehiscence right leg History of Wound: Patient is a 38-year-old female who subsequently developed a surgical wound dehiscence of her right lateral lower extremity. She previously underwent surgery for primary repair of split tear of the peroneus brevis tendon, primary repair of anterior tibiofibular ligament (AITFL), and syndesmotic reduction via tight rope of the right lower extremity on 04/24/2023. Following removal of sutures she developed surgical wound dehiscence secondary to continued lower extremity swelling via chronic venous insufficiency. She did undergo debridement in office 06/05/2023 and Deidre was applied at this time with Tubigrip compression. She has worn compression stockings to manage lower extremity swelling prior to surgical intervention. Patient is also noted to have autoimmune disease and is managed by rheumatology with medication and did resume all medications 2 weeks post operative per rheumatology. She was referred to the wound care center for continued wound healing. She has been applying Deidre and dry sterile dressings daily. She denies N/V/F/chills. Denies further complaints. Subjective Subjective Randa presents to the wound center today as a courtesy visit for Dr. Cummins. She saw him last week and was doing well and planned for follow up next week but 3 days ago she noticed some increased yellow tissue and then yesterday there was increased drainage and called to be seen to check in sooner. She denies any constitutional symptoms. She has increased drainage, mild erythema and mildly increased pain. No odor. She has been applying the Tacrolimus cream as prescribed. Objective Data Objective Data Vital Signs: Vital Signs Temp Pulse Resp BP O2 Del Method 96.4 F L 89 18 144/81 H Room Air 10/30/23 10:44 10/30/23 10:44 10/30/23 10:44 10/30/23 10:44 10/22/23 11:19 Oxygen Delivery Method Room Air Physical Exam Const alert, oriented x3 and no apparent distress General Appearance: cooperative HEENT normocephalic Eyes General Eye: normal appearance of both eyes Neck General: normal visual inspection Lymph Lymphatic: no lymphadenopathy noted and no lymphedema noted Resp normal respiratory effort Cardio regular rate and regular rhythm Extremity normal capillary refill, no calf tenderness and no pedal edema Extremity Narrative: Vascular DP and PT pulses palpable bilateral. Capillary fill time less than 3 seconds to digits bilateral. Dermatological: There is bilateral lower extremity edema secondary to chronic venous stasis with some hemosiderin deposition noted about the right lower extremity. The surgical dehiscence of the proximal incision on the right lower extremity with subsequent ulceration has healed. Surrounding skin does have resolving rubor secondary to chronic venous stasis in addition to autoimmune disease. No signs of infection. Distal aspect of the incision right lateral leg is a well-healed cicatrix. Anterior lateral leg demonstrates well-healed cicatrix. No signs of infection. Medial ankle wound secondary to autoimmune response with rubor noted with some tenderness to palpation, mild surrounding erythema but no warmth or odor On 08/28/2023 she demonstrated worsening of the medial and lateral ulcerative sites with deep purple violaceous border and hypertrophy of the wound bed and was started on oral steroid for possible pyoderma gangrenosum. She returned again on 09/03/2023 following oral steroid with noted improvement in tissue color surrounding the ulcerative sites and decreasing hypertrophy of the wound bed tissue. Pain also noted to be improving following oral steroid. Debridement was stopped. Musculoskeletal: Muscle strength 5 of 5 age-appropriate. No pain to palpation about the lateral leg of the right lower extremity. Skin no rashes or lesions noted, skin turgor normal and no jaundice Neuro moves all extremities Debridement Note Debridement Note Wound debrided: right medial ankle Laterality: Right No debridement was completed: No debridement was completed today (contraindicated due to pyoderma gangrenosum) Post-Debridement Measurements and Additional Note: Post-Debridement Measurements/Treatment - Nurse 1 - General Ulcer Assessment Start: 10/22/23 11:19 Freq: Status: Active Protocol: LAURIE Activity Type Activity Date Activity User E-sign Co-sign Detail Recorded Client Recorded Date Recorded By Document 10/22/23 11:19 KW Desktop 10/22/23 11:29 KW Document 10/30/23 10:44 RB Desktop 10/30/23 10:51 RB 10/22/23 10/30/23 11:19 10:44 - Today's Visit Information Type of service Follow-up Visit Follow-up Visit (Physician/FASHION MARKETER (Physician/FASHION MARKETER ) ) Arrival Mode Ambulatory Ambulatory Transfer Assistance None Patient Identification Verified (Name & Yes Yes ) Patient Requires Transmission-Based No Precautions Vital Signs Temperature (97.8 F-99.1 F) 98.0 F 96.4 F L Temperature Source Temporal Temporal Pulse Rate (60-100) 95 89 Pulse Location Monitor Monitor Respiratory Rate (12-18) 18 18 Respiratory rate source Observation Observation Oxygen Delivery Method Room Air Blood Pressure (90/60-120/80) 132/90 H 144/81 H Blood Pressure Mean (mm Hg) 104 102 Source Monitor Monitor Position Sitting Semi-Fowlers Blood Pressure Location Left Arm Left Arm History Since Last Visit- (Skip if this is Patient's initial visit) Have you changed medications since your No No last visit? Any new allergies or adverse reactions No No Had a fall/change in ADL's that may No No increase risk of falls Signs or symptoms of abuse and/or No No neglect since last visit Have you been in the hospital since your No No last visit? Has dressing in place as prescribed Yes Yes Has compression in place as prescribed Yes Yes Has offloadiing in place as prescribed Yes No Experienced any changes in pain level or No No management Left Footwear Regular Shoe Right Footwear Surgical Shoe with pressure relief insole Pain Scale: 0-10 Numeric Is Patient Pain Free? Yes No RLE -Description Aching -Intensity 5 -Pain Behavior Withdrawal from Touch -Pain Aggravating Factors ADL's -Alleviating Factors/Interventions Medication -Effectiveness of Alleviating Factor/ Moderately Intervention effective WC - Nurse 1 - General Ulcer Measurement Start: 10/22/23 11:19 Freq: Status: Active Protocol: Activity Type Activity Date Activity User E-sign Co-sign Detail Recorded Client Recorded Date Recorded By Document 10/22/23 11:19 KW Desktop 10/22/23 11:29 KW Document 10/30/23 10:44 Desktop 10/30/23 10:51 RB 10/22/23 10/30/23 11:19 10:44 Wound Center Nurse 1 #2 RT MED ANKLE -Current Size (cm) - Length 0.8 -Current Size (cm) - Width 0.7 -Total Square Cm 0.56 -Date of Last Picture (Recall this 10/22/23 field) -Granulation Quality Hyper- granulation -Color (Meghan-wound Skin Appearance) Erythema -Ulcer Cleansing Rinsed/ Irrigated with Saline #1 RT LAT ANKLE CLUSTER -Combined with other wound No -Current Size (cm) - Length 0.1 1 -Current Size (cm) - Width 0.1 0.8 -Current Size (cm) - Depth 0.1 0.2 -Total Square Cm 0.01 0.8 -Date of Last Picture (Recall this 10/22/23 field) -Tunneling No -Undermining/Tunneling No -Circular Undermining No -Exudate Amt Medium -Exudate Type Serosanguineous -Wound Margin Distinct, Outline Attached -Granulation Amt Medium (34-66%) -Granulation Quality Pale,[place] Hyper- granulation, [place],Red -Slough/Fibrin Yes -Necrosis Amt Medium (34-66%) -Necrotic Tissue Type Adherent Slough -Structure Exposed N/A -Texture (Meghan-wound Skin Appearance) Assessed Assessed -Moisture (Meghan-wound Skin Appearance) Assessed Assessed -Color (Meghan-wound Skin Appearance) Assessed, Assessed Erythema -Temperature (Meghan-wound Skin No Abnormality No Abnormality Appearance) (Pt Warm) (Pt Warm) -Tenderness on Palpation (Meghan-wound No No Skin Appearance) -Ulcer Cleansing Rinsed/ Wound Cleanser Irrigated with Saline -Foul Odor after Cleansing No Lower Limb Edema Present Yes Right Calf (cm) 45 46 Right Ankle (cm) 29.5 29.5 WC - Nurse 2 - General Ulcer CM Notes Start: 10/22/23 11:19 Freq: Status: Active Protocol: Activity Type Activity Date Activity User E-sign Co-sign Detail Recorded Client Recorded Date Recorded By Document 10/22/23 11:51 [facility] Desktop 10/22/23 11:54 [facility] Document 10/30/23 11:04 Desktop 10/30/23 11:07 10/22/23 10/30/23 11:51 11:04 Wound Center Nurse 2 #2 RT MED ANKLE -Post Debridement (cm) - Length 0 -Post Debridement (cm) - Width 0 -Post Debridement (cm) - Depth 0 -Total Square (Post) (cm) 0 -Area of Debridement (cm) - Length 0 -Area of Debridement (cm) - Width 0 -Total Square (Area) (cm) 0 -Wound/Ulcer Outcome Healed- Epithelialized #1 RT LAT ANKLE CLUSTER -Time 11:04 -Correct Patient Yes -Correct Side, Site, Position Yes -Post Debridement (cm) - Length 0.3 1.0 -Post Debridement (cm) - Width 0.3 0.8 -Post Debridement (cm) - Depth 0.1 0.1 -Total Square (Post) (cm) 0.09 0.80 -Area of Debridement (cm) - Length 0.3 -Area of Debridement (cm) - Width 0.3 -Total Square (Area) (cm) 0.09 -Wound/Ulcer Outcome Not Healed Not Healed -Ulcer Cleansing Rinsed/ Irrigated with Saline -Foul Odor after Cleansing No -Bioengineered Tissue No -Bleeding Controlled with NA Silver Nitrate Pain Scale: 0-10 Numeric Is Patient Pain Free? Yes Yes - Nurse 3 - General Ulcer D/C NN Start: 10/22/23 11:19 Freq: Status: Active Protocol: Activity Type Activity Date Activity User E-sign Co-sign Detail Recorded Client Recorded Date Recorded By Document 10/22/23 12:04 KW Desktop 10/22/23 12:05 KW Document 10/30/23 11:29 RB Desktop 10/30/23 11:30 RB 10/22/23 10/30/23 12:04 11:29 Wound Care Center Nurse 3 #1 RT LAT ANKLE CLUSTER -Primary Dressing Applied NonAdherent NonAdherent Contact Layer Contact Layer -Primary Dressing Covered/Secured with Dry Gauze & Dry Gauze,Dry Roll Gauze, Gauze & Roll Secured with Gauze,Secured Tape with Tape Right -Tubular Bandage Single Layer Single Layer -Size of Tubigrip Used Size D Size D -Size D ($) 1 1 Treatment Response Procedure Tolerated Well Pain Scale: 0-10 Numeric Is Patient Pain Free? 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: CODE(S): L97.212 - Non-pressure chronic ulcer of right calf with fat layer exposed (4) Surgical wound dehiscence: CODE(S): T81.31XA - Disruption of external operation (surgical) wound, not elsewhere classified, initial encounter QUALIFIERS: Encounter type: subsequent encounter Qualified Code(s): T81.31XD - Disruption of external operation (surgical) wound, not elsewhere classified, subsequent encounter (5) Injury of peroneal tendon of right foot: CODE(S): S86.301A - Unspecified injury of muscle(s) and tendon(s) of peroneal muscle group at lower leg level, right leg, initial encounter QUALIFIERS: Encounter type: subsequent encounter Qualified Code(s): S86.301D - Unspecified injury of muscle(s) and tendon(s) of peroneal muscle group at lower leg level, right leg, subsequent encounter (6) Rupture of ligament of right ankle: CODE(S): S93.401A - Sprain of unspecified ligament of right ankle, initial encounter (7) Syndesmotic disruption of right ankle: CODE(S): S93.431A - Sprain of tibiofibular ligament of right ankle, initial encounter QUALIFIERS: Encounter type: subsequent encounter Qualified Code(s): S93.431D - Sprain of tibiofibular ligament of right ankle, subsequent encounter (8) Peroneal tendinitis, right leg: CODE(S): M76.71 - Peroneal tendinitis, right leg (9) Pain in right lower leg: CODE(S): M79.661 - Pain in right lower leg (10) Venous insufficiency (chronic) (peripheral): CODE(S): I87.2 - Venous insufficiency (chronic) (peripheral) PLAN: Plan Patient seen and evaluated Silver nitrate applied to pyogenic tissue. Patient tolerated procedure well. Does have tenderness to the medial ankle ulceration secondary pyoderma gangrenosum. She has remained protective weightbearing to the right lower extremity with surgical shoe. States the stiffness in the ankle has improved through use of therapy bands and home exercises. Discussed transition to supportive shoe gear again today which she will return to once ulcerations have healed. Encouraged continued ambulation in supportive shoe gear vs surgical shoe. Currently full weightbearing in surgical shoe without difficulty. Dressings were removed today and site was inspected. Anterior lateral ankle demonstrates well-healed cicatrix. Lateral ankle demonstrates well-healed cicatrix distally and proximally and healed ulceration. Medial ankle wound still present secondary to pyroderma gangrenosum. Overall healing well. Ulceration did NOT undergo debridement as noted in the clinical panel above. Her pyoderma gangrenosum is responding well to the topical tacrolimus but there is concern for possible infection. Wound culture performed and will treat based on results. Will have her continue applying topical tacrolimus 0.1% cream daily. Tubigrip compression stocking applied to the lower extremity. She was also encouraged to transition to full weightbearing to the right lower extremity in supportive shoe gear and elevate lower extremity at all times of rest for edema control. Patient is currently on immunosuppressant agents for autoimmune disease Patient is stating the pain is improved following the use of the steroid and the steroid course was extended as I do feel she has pyoderma gangrenosum. 09/10/2023 she was prescribed topical tacrolimus 0.1% to apply the wound bed daily. Will continue the topical steroid which is working and she is demonstrating healing of ulcerative sites, will continue to monitor. At this time she does continue to demonstrate healing progress of the wound and local tissue. Discussed adequate protein intake to aid in wound healing. She will continue Oscar supplementation. Discussed continuing range of motion exercises while nonweightbearing, including working with resistance bands to increase lower extremity strength. Discussed as wound nears closure physical therapy will be implemented to improve strength and motion to the right lower extremity. Discussed transition to supportive shoe gear to the right lower extremity. Her gait is noted to be much improved versus prior to surgical intervention. Discussed once wound has healed we will begin physical therapy to increase strength and flexibility of the right lower extremity. At this time overall prognosis is good but complicated due to surgical dehiscence/pyoderma gangrenosum, will continue topical tacrolimus. Venous studies were performed 07/09/2023, no evidence of DVT. Valvular competence appears intact within the proximal deep venous system bilaterally. Great saphenous vein appears bilaterally patent and compressible segmentally. Saphenofemoral junctions are bilaterally competent. There is segmental valvular incompetence noted in the great saphenous veins bilaterally small saphenous veins patent and competent on the right and patent and incompetent on the left. There are several incompetent accessory saphenous veins and tributaries in the right lower extremity and 2 accessory saphenous veins of the left calf are incompetent. Discussed signs and symptoms of infection. Discussed with her if she notices increasing redness about the ulcerative site that moves up the leg, purulent drainage from the ulcerative site, increasing foul odor from the ulcerative site, or if she develops fever greater than 101 degree, develops nausea, vomiting, chills, these are signs of a progressing infection and she should report to the ED for IV antibiotics. She voices understanding of this today. The following work up and care recommendations were made: Dressing: Tacrolimus ointment, Adaptic, Dry sterile dressing. Change dressing daily Wash: Soap and water Tissue growth optimization: Topical tacrolimus Offload: To transition to full weightbearing to the right lower extremity in supportive shoe gear. foot. Patient was previously in CAM boot until surgical wound dehiscence. Transitioned back to surgical shoe to allow for decreased pressure at the wound site on the leg. Vascular: DP and PT pulses palpable with adequate capillary fill time to digits. Edema: Patient does have chronic venous insufficiency with bilateral lower extremity edema. Tubigrip compression is applied. Once wound is closed she will return to her prescription compression stockings. Infection: Possible infection, culture done today. Pain: May take [id number] Tylenol for discomfort Host factors: Chronic venous insufficiency, autoimmune disease, pyoderma gangrenosum I answered all the patient's questions. To return to the wound healing center as scheduled with Dr. Cummins on 11/05/23 or call sooner if the patient has any questions or concerns. Will RTC for continued wound healing and postoperative care s/p primary repair of split tear of peroneal brevis tendon, primary repair of anterior tibiofibular ligament (AITFL), and syndesmotic repair via tight rope right lower extremity.
[2023-11-05 11:24] VITALS: BP 158/95; PULSE 91; RESP 20; TEMP 36.3
--- NOTE | 2023-11-05 13:20 | PCM.WC.PN ---
History of Present Illness Date of Service: 11/05/23 Chief Complaint: Surgical wound dehiscence right leg History of Wound: Patient is a 38-year-old female who subsequently developed a surgical wound dehiscence of her right lateral lower extremity. She previously underwent surgery for primary repair of split tear of the peroneus brevis tendon, primary repair of anterior tibiofibular ligament (AITFL), and syndesmotic reduction via tight rope of the right lower extremity on 04/24/2023. Following removal of sutures she developed surgical wound dehiscence secondary to continued lower extremity swelling via chronic venous insufficiency. She did undergo debridement in office 06/05/2023 and Deidre was applied at this time with Tubigrip compression. She has worn compression stockings to manage lower extremity swelling prior to surgical intervention. Patient is also noted to have autoimmune disease and is managed by rheumatology with medication and did resume all medications 2 weeks post operative per rheumatology. She was referred to the wound care center for continued wound healing. She has been applying Deidre and dry sterile dressings daily. She denies N/V/F/chills. Denies further complaints. Subjective Subjective Patient is a 38-year-old female who presents to the wound care center today for f/u of a right lateral leg surgical dehiscence s/p repair of split tear of peroneal brevis tendon, AITFL ligament repair, and syndesmotic repair of the right ankle. She reports she is continuing to walk with the surgical shoe without difficulty. She is continuing to work with resistance bands at home and doing home exercises to increase strength to lower extremity. She has been continuing to apply the topical tacrolimus ointment and is demonstrating continued improvement and she can tell there is improvement with ulcers on medial and lateral leg. She recently fell and hurt the left knee. Also return to wound center on 10/30/[address] Morgan and cultures were obtained at that time and she underwent silver nitrate procedure to the medial wound. She denies constitutional symptoms today. Denies further complaints today. Objective Data Objective Data Vital Signs: Vital Signs Temp Pulse Resp BP O2 Del Method 97.3 F L 91 20 H 158/95 H Room Air 11/05/23 11:24 11/05/23 11:24 11/05/23 11:24 11/05/23 11:24 10/22/23 11:19 Oxygen Delivery Method Room Air Lab / Micro Data Micro: Microbiology 10/30/23 11:00 Wound - Ankle Gram Stain - Final 10/30/23 11:00 Wound - Ankle Wound Culture - Final Staphylococcus aureus Corynebacterium species 10/30/23 11:00 Wound - Ankle Anaerobic Culture - Final Cristianokia neuii Anaerobic cocci Physical Exam Const alert, oriented x3 and no apparent distress General Appearance: cooperative HEENT normocephalic Eyes General Eye: normal appearance of both eyes Neck General: normal visual inspection Lymph Lymphatic: no lymphadenopathy noted and no lymphedema noted Resp normal respiratory effort Cardio regular rate and regular rhythm Extremity normal capillary refill, no calf tenderness and no pedal edema Extremity Narrative: Vascular DP and PT pulses palpable bilateral. Capillary fill time less than 3 seconds to digits bilateral. Dermatological: There is bilateral lower extremity edema secondary to chronic venous stasis with some hemosiderin deposition noted about the right lower extremity. The surgical dehiscence of the proximal incision on the right lower extremity with subsequent ulceration has healed. Surrounding skin does have resolving rubor secondary to chronic venous stasis in addition to autoimmune disease. No signs of infection. Distal aspect of the incision right lateral leg is a well-healed cicatrix. Anterior lateral leg demonstrates well-healed cicatrix. No signs of infection. Medial ankle wound secondary to autoimmune response with rubor noted with some tenderness to palpation. - Improving ulcerations with use of topical tacrolimus ointment On 08/28/2023 she demonstrated worsening of the medial and lateral ulcerative sites with deep purple violaceous border and hypertrophy of the wound bed and was started on oral steroid for possible pyoderma gangrenosum. She returned again on 09/03/2023 following oral steroid with noted improvement in tissue color surrounding the ulcerative sites and decreasing hypertrophy of the wound bed tissue. Pain also noted to be improving following oral steroid. Debridement was stopped. Musculoskeletal: Muscle strength 5 of 5 age-appropriate. No pain to palpation about the lateral leg of the right lower extremity. Skin no rashes or lesions noted, skin turgor normal and no jaundice Neuro moves all extremities Debridement Note Debridement Note Wound debrided: Medial ankle wound with silver nitrate procedure Laterality: Right Wound Grade/Stage: Maciel stage I Type of Debridement: Excisional debridement Anesthesia Used: 5% Lidocaine Gel Depth: Down to and including healthy tissue and in the subcutaneous layer Percentage of wound debrided: 100 Instrument Used: 5mm curette Tissue Removed: Fibrous, devitalized subcutaneous, biofilm, slough Severity: Fat Layer Exposed Amount of bleeding with debridement: Mild Bleeding Controlled with: Silver Nitrate Patient tolerated procedure: Patient tolerated procedure well Post-Debridement Measurements and Additional Note: Post-Debridement Measurements/Treatment WC - Nurse 1 - General Ulcer Assessment Start: 10/22/23 11:19 Freq: Status: Active Protocol: LAURIE Activity Type Activity Date Activity User E-sign Co-sign Detail Recorded Client Recorded Date Recorded By Document 10/22/23 11:19 KW Desktop 10/22/23 11:29 KW Document 10/30/23 10:44 RB Desktop 10/30/23 10:51 RB Document 11/05/23 11:24 DL [email or web address] 11/05/23 11:34 DL 10/22/23 10/30/23 11/05/23 11:19 10:44 11:24 WC - Today's Visit Information Type of service Follow-up Visit Follow-up Visit Follow-up Visit (Physician/COMPENSATION PROGRAMS MANAGER (Physician/COMPENSATION PROGRAMS MANAGER (Physician/COMPENSATION PROGRAMS MANAGER ) ) ) Arrival Mode Ambulatory Ambulatory Ambulatory, Walker Transfer Assistance None None Patient Identification Verified (Name & Yes Yes Yes ) Patient Requires Transmission-Based No No Precautions Vital Signs Temperature (97.8 F-99.1 F) 98.0 F 96.4 F L 97.3 F L Temperature Source Temporal Temporal Temporal Pulse Rate (60-100) 95 89 91 Pulse Location Monitor Monitor Monitor Respiratory Rate (12-18) 18 18 20 H Respiratory rate source Observation Observation Observation Oxygen Delivery Method Room Air Blood Pressure (90/60-120/80) 132/90 H 144/81 H 158/95 H Blood Pressure Mean (mm Hg) 104 102 116 Source Monitor Monitor Monitor Position Sitting Semi-Fowlers Blood Pressure Location Left Arm Left Arm History Since Last Visit- (Skip if this is Patient's initial visit) Have you changed medications since your No No No last visit? Any new allergies or adverse reactions No No No Had a fall/change in ADL's that may No No No increase risk of falls Signs or symptoms of abuse and/or No No No neglect since last visit Have you been in the hospital since your No No No last visit? Has dressing in place as prescribed Yes Yes Yes Has compression in place as prescribed Yes Yes Yes Has offloadiing in place as prescribed Yes No Yes Experienced any changes in pain level or No No No management Left Footwear Regular Shoe Right Footwear Surgical Shoe with pressure relief insole Pain Scale: 0-10 Numeric Is Patient Pain Free? Yes No Yes RLE -Description Aching -Intensity 5 -Pain Behavior Withdrawal from Touch -Pain Aggravating Factors ADL's -Alleviating Factors/Interventions Medication -Effectiveness of Alleviating Factor/ Moderately Intervention effective WC - Nurse 1 - General Ulcer Measurement Start: 10/22/23 11:19 Freq: Status: Active Protocol: Activity Type Activity Date Activity User E-sign Co-sign Detail Recorded Client Recorded Date Recorded By Document 10/22/23 11:19 KW Desktop 10/22/23 11:29 KW Document 10/30/23 10:44 RB Desktop 10/30/23 10:51 RB Document 11/05/23 11:24 DL [email or web address] 11/05/23 11:34 DL 10/22/23 10/30/23 11/05/23 11:19 10:44 11:24 Wound Center Nurse 1 #2 RT MED ANKLE -Current Size (cm) - Length 0.8 0.7 -Current Size (cm) - Width 0.7 0.6 -Current Size (cm) - Depth 0.1 -Total Square Cm 0.56 0.42 -Date of Last Picture (Recall this 10/22/23 field) -Exudate Amt Small -Exudate Type Serosanguineous -Wound Margin Distinct, Outline Attached -Granulation Amt Medium (34-66%) -Granulation Quality Hyper- [place] granulation -Necrosis Amt Medium (34-66%) -Necrotic Tissue Type Adherent Slough -Structure Exposed N/A -Texture (Meghan-wound Skin Appearance) Localized Edema ,Scarring -Moisture (Meghan-wound Skin Appearance) No Abnormality -Color (Meghan-wound Skin Appearance) Erythema Erythema -Temperature (Meghan-wound Skin No Abnormality Appearance) (Pt Warm) -Tenderness on Palpation (Meghan-wound Yes Skin Appearance) -Ulcer Cleansing Rinsed/ Soap and Water Irrigated with Saline -Foul Odor after Cleansing No -Anesthetic Used 5% Lidocaine Gel #1 RT LAT ANKLE CLUSTER -Combined with other wound No -Current Size (cm) - Length 0.1 1 0.1 -Current Size (cm) - Width 0.1 0.8 0.1 -Current Size (cm) - Depth 0.1 0.2 0.1 -Total Square Cm 0.01 0.8 0.01 -Date of Last Picture (Recall this 10/22/23 field) -Tunneling No -Undermining/Tunneling No -Circular Undermining No -Exudate Amt Medium None Present -Exudate Type Serosanguineous -Wound Margin Distinct, Distinct, Outline Outline Attached Attached -Granulation Amt Medium (34-66%) Large (67-100%) -Granulation Quality Pale,[place] Hyper- [place] granulation, [place],Red -Slough/Fibrin Yes -Necrosis Amt Medium (34-66%) None Present (0 %) -Necrotic Tissue Type Adherent Slough -Structure Exposed N/A N/A -Texture (Meghan-wound Skin Appearance) Assessed Assessed Localized Edema ,Scarring -Moisture (Meghan-wound Skin Appearance) Assessed Assessed No Abnormality -Color (Megahn-wound Skin Appearance) Assessed, Assessed Erythema Erythema -Temperature (Meghan-wound Skin No Abnormality No Abnormality No Abnormality Appearance) (Pt Warm) (Pt Warm) (Pt Warm) -Tenderness on Palpation (Meghan-wound No No Yes Skin Appearance) -Ulcer Cleansing Rinsed/ Wound Cleanser Soap and Water Irrigated with Saline -Foul Odor after Cleansing No No -Anesthetic Used 5% Lidocaine Gel Lower Limb Edema Present Yes Right Calf (cm) 45 46 Right Ankle (cm) 29.5 29.5 Left Calf (cm) 42.8 Left Ankle (cm) 28 WC - Nurse 2 - General Ulcer CM Notes Start: 10/22/23 11:19 Freq: Status: Active Protocol: Activity Type Activity Date Activity User E-sign Co-sign Detail Recorded Client Recorded Date Recorded By Document 10/22/23 11:51 [facility] Desktop 10/22/23 11:54 [facility] Document 10/30/23 11:04 Desktop 10/30/23 11:07 Document 11/05/23 11:42 [facility] [email or web address] 11/05/23 11:54 [facility] 10/22/23 10/30/23 11/05/23 11:51 11:04 11:42 Wound Center Nurse 2 #2 RT MED ANKLE -Time 11:52 -Correct Patient Yes -Correct Side, Site, Position Yes -Correct Procedure Yes -Procedure Performed Yes -Type of Procedure Debridement -Clinical Debridement Subcutaneous -Tissue Removed Subcutaneous -Post Debridement (cm) - Length 0 0.6 -Post Debridement (cm) - Width 0 0.5 -Post Debridement (cm) - Depth 0 0.1 -Total Square (Post) (cm) 0 0.30 -Area of Debridement (cm) - Length 0 0.6 -Area of Debridement (cm) - Width 0 0.5 -Total Square (Area) (cm) 0 0.30 -Tunneling No -Undermining/Tunneling No -Circular Undermining No -Wound/Ulcer Outcome Healed- Not Healed Epithelialized -Ulcer Cleansing Rinsed/ Irrigated with Saline -Foul Odor after Cleansing No -Bioengineered Tissue No -Bleeding Controlled with Silver Nitrate -Treatment Response Procedure Tolerated Well -Debridement - Subq, 1st 20sq cm Yes #1 RT LAT ANKLE CLUSTER -Time 11:04 -Correct Patient Yes -Correct Side, Site, Position Yes -Post Debridement (cm) - Length 0.3 1.0 0.1 -Post Debridement (cm) - Width 0.3 0.8 0.1 -Post Debridement (cm) - Depth 0.1 0.1 0.1 -Total Square (Post) (cm) 0.09 0.80 0.01 -Area of Debridement (cm) - Length 0.3 0.1 -Area of Debridement (cm) - Width 0.3 0.1 -Total Square (Area) (cm) 0.09 0.01 -Wound/Ulcer Outcome Not Healed Not Healed Not Healed -Ulcer Cleansing Rinsed/ Irrigated with Saline -Foul Odor after Cleansing No -Bioengineered Tissue No -Bleeding Controlled with NA Silver Nitrate Pain Scale: 0-10 Numeric Is Patient Pain Free? Yes Yes Yes WC - Nurse 3 - General Ulcer D/C NN Start: 10/22/23 11:19 Freq: Status: Active Protocol: Activity Type Activity Date Activity User E-sign Co-sign Detail Recorded Client Recorded Date Recorded By Document 10/22/23 12:04 KW Desktop 10/22/23 12:05 KW Document 10/30/23 11:29 RB Desktop 10/30/23 11:30 RB 10/22/23 10/30/23 12:04 11:29 Wound Care Center Nurse 3 #1 RT LAT ANKLE CLUSTER -Primary Dressing Applied NonAdherent NonAdherent Contact Layer Contact Layer -Primary Dressing Covered/Secured with Dry Gauze & Dry Gauze,Dry Roll Gauze, Gauze & Roll Secured with Gauze,Secured Tape with Tape Right -Tubular Bandage Single Layer Single Layer -Size of Tubigrip Used Size D Size D -Size D ($) 1 1 Treatment Response Procedure Tolerated Well Pain Scale: 0-10 Numeric Is Patient Pain Free? 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: CODE(S): L97.212 - Non-pressure chronic ulcer of right calf with fat layer exposed (4) Surgical wound dehiscence: CODE(S): T81.31XA - Disruption of external operation (surgical) wound, not elsewhere classified, initial encounter QUALIFIERS: Encounter type: subsequent encounter Qualified Code(s): T81.31XD - Disruption of external operation (surgical) wound, not elsewhere classified, subsequent encounter (5) Injury of peroneal tendon of right foot: CODE(S): S86.301A - Unspecified injury of muscle(s) and tendon(s) of peroneal muscle group at lower leg level, right leg, initial encounter QUALIFIERS: Encounter type: subsequent encounter Qualified Code(s): S86.301D - Unspecified injury of muscle(s) and tendon(s) of peroneal muscle group at lower leg level, right leg, subsequent encounter (6) Rupture of ligament of right ankle: CODE(S): S93.401A - Sprain of unspecified ligament of right ankle, initial encounter (7) Syndesmotic disruption of right ankle: CODE(S): S93.431A - Sprain of tibiofibular ligament of right ankle, initial encounter QUALIFIERS: Encounter type: subsequent encounter Qualified Code(s): S93.431D - Sprain of tibiofibular ligament of right ankle, subsequent encounter (8) Peroneal tendinitis, right leg: CODE(S): M76.71 - Peroneal tendinitis, right leg (9) Pain in right lower leg: CODE(S): M79.661 - Pain in right lower leg (10) Venous insufficiency (chronic) (peripheral): CODE(S): I87.2 - Venous insufficiency (chronic) (peripheral) PLAN: Plan Patient seen and evaluated She presents today postoperatively s/p primary repair of split tear of peroneal brevis tendon, primary repair of anterior tibiofibular ligament (AITFL), and syndesmotic reduction via tight rope DOS 04/24/2023, POD #195 Currently 6 months 3 weeks out of surgery. She did see Dr. Morgan on 10/30/2023 and she did perform debridement with silver nitrate procedure and instructed her to continue to apply the topical tacrolimus following procedure. Cultures were obtained at this visit demonstrating Staph aureus. She had previously been on oral antibiotics without improvement of the wound. Wound did improve with topical tacrolimus/steroid treatment. States pain to her right lateral ankle is continuing to improve she is continuing weight bearing to the Right foot. Denies calf pain today. Pain in leg is improving about wounds. She reports this did begin to open up on 06/02/2023 following lower extremity swelling secondary to her chronic venous insufficiency. Dehiscence occurred 2 weeks following the removal of her sutures. Denies calf pain today. Negative Robertson sign & Negative Ro's sign. States no pain along peroneal tendon or to eversion of the foot or at anterior lateral ankle overlying the ATIFL. Does have tenderness to the medial and lateral ankle ulceration secondary pyoderma gangrenosum. She has remained protective weightbearing to the right lower extremity with surgical shoe. States the stiffness in the ankle has improved through use of therapy bands and home exercises. Discussed transition to supportive shoe gear again today which she will return to once ulcerations have healed. Encouraged continued ambulation in supportive shoe gear vs surgical shoe. Currently full weightbearing in surgical shoe without difficulty. Dressings were removed today and site was inspected. Anterior lateral ankle demonstrates well-healed cicatrix. Lateral ankle demonstrates well-healed cicatrix distally and proximally healed ulceration. Medial ankle wound secondary to pyroderma gangrenosum. Overall healing well. Ulceration did undergo debridement as noted in the clinical panel above with silver nitrate application. Ulceration lateral leg remains healed today. Medial ankle ulceration measures 0.6 cm x 0.5 cm x 0.2 cm. Her pyoderma gangrenosum is responding well to the topical tacrolimus and ulcerations are decreasing in size. Will continue applying topical tacrolimus 0.1% cream daily. Tubigrip compression stocking applied to the lower extremity. She was also encouraged to transition to full weightbearing to the right lower extremity in supportive shoe gear and elevate lower extremity at all times of rest for edema control. On 08/28/2023 she demonstrated worsening of the medial and lateral ulcerative sites with deep purple violaceous border and hypertrophy of the wound bed and was started on oral steroid for possible pyoderma gangrenosum. She returned again on 09/03/2023 following oral steroid with noted improvement in tissue color surrounding the ulcerative sites and decreasing hypertrophy of the wound bed tissue. Pain also noted to be improving following oral steroid at that time. Debridement was stopped and oral steroid was started continued for additional week following addition of topical Tacrolimus with plan to monitor response. There is a significant improvement with continued reduction in size of the ulceration versus previous visit. She is discussing with Rheumatology and Global Cto utilizing new medication once wound is healed. Patient is currently on immunosuppressant agents for autoimmune disease Patient is stating the pain is improved following the use of the steroid and the steroid course was extended as I do feel she has pyoderma gangrenosum. 09/10/2023 she was prescribed topical tacrolimus 0.1% to apply the wound bed daily. Will continue the topical steroid which is working and she is demonstrating healing of ulcerative sites, will continue to monitor. At this time she does continue to demonstrate healing progress of the wound and local tissue. Ulcerations are nearing closure. Discussed adequate protein intake to aid in wound healing. She will continue Oscar supplementation. Discussed continuing range of motion exercises while nonweightbearing, including working with resistance bands to increase lower extremity strength. Discussed as wound nears closure physical therapy will be implemented to improve strength and motion to the right lower extremity. Discussed transition to supportive shoe gear to the right lower extremity. Her gait is noted to be much improved versus prior to surgical intervention. Discussed once wound has healed we will begin physical therapy to increase strength and flexibility of the right lower extremity. At this time overall prognosis is good but complicated due to surgical dehiscence/pyoderma gangrenosum, will continue topical tacrolimus. Venous studies were performed 07/09/2023, no evidence of DVT. Valvular competence appears intact within the proximal deep venous system bilaterally. Great saphenous vein appears bilaterally patent and compressible segmentally. Saphenofemoral junctions are bilaterally competent. There is segmental valvular incompetence noted in the great saphenous veins bilaterally small saphenous veins patent and competent on the right and patent and incompetent on the left. There are several incompetent accessory saphenous veins and tributaries in the right lower extremity and 2 accessory saphenous veins of the left calf are incompetent. Discussed signs and symptoms of infection. Discussed with her if she notices increasing redness about the ulcerative site that moves up the leg, purulent drainage from the ulcerative site, increasing foul odor from the ulcerative site, or if she develops fever greater than 101 degree, develops nausea, vomiting, chills, these are signs of a progressing infection and she should report to the ED for IV antibiotics. She voices understanding of this today. The following work up and care recommendations were made: Dressing: Tacrolimus ointment, Adaptic, Dry sterile dressing. Change dressing daily Wash: Soap and water Tissue growth optimization: Topical tacrolimus Offload: To transition to full weightbearing to the right lower extremity in supportive shoe gear. foot. Patient was previously in CAM boot until surgical wound dehiscence. Transitioned back to surgical shoe to allow for decreased pressure at the wound site on the leg. Vascular: DP and PT pulses palpable with adequate capillary fill time to digits. Edema: Patient does have chronic venous insufficiency with bilateral lower extremity edema. Tubigrip compression is applied. Once wound is closed she will return to her prescription compression stockings. Infection: No signs of infection. Pain: May take [id number] Tylenol for discomfort Host factors: Chronic venous insufficiency, autoimmune disease, pyoderma gangrenosum I answered all the patient's questions. To return to the wound healing center in 1 week or call sooner if the patient has any questions or concerns. Will RTC for continued wound healing and postoperative care s/p primary repair of split tear of peroneal brevis tendon, primary repair of anterior tibiofibular ligament (AITFL), and syndesmotic repair via tight rope right lower extremity.
[2023-11-12 11:24] VITALS: BP 156/65; PULSE 88; RESP 18; TEMP 36.2
--- NOTE | 2023-11-12 12:27 | PCM.WC.PN ---
History of Present Illness Date of Service: 11/12/23 Chief Complaint: Surgical wound dehiscence right leg History of Wound: Patient is a 38-year-old female who subsequently developed a surgical wound dehiscence of her right lateral lower extremity. She previously underwent surgery for primary repair of split tear of the peroneus brevis tendon, primary repair of anterior tibiofibular ligament (AITFL), and syndesmotic reduction via tight rope of the right lower extremity on 04/24/2023. Following removal of sutures she developed surgical wound dehiscence secondary to continued lower extremity swelling via chronic venous insufficiency. She did undergo debridement in office 06/05/2023 and Deidre was applied at this time with Tubigrip compression. She has worn compression stockings to manage lower extremity swelling prior to surgical intervention. Patient is also noted to have autoimmune disease and is managed by rheumatology with medication and did resume all medications 2 weeks post operative per rheumatology. She was referred to the wound care center for continued wound healing. She has been applying Deidre and dry sterile dressings daily. She denies N/V/F/chills. Denies further complaints. Subjective Subjective Patient is a 38-year-old female who presents to the wound care center today for f/u of a right lateral leg surgical dehiscence s/p repair of split tear of peroneal brevis tendon, AITFL ligament repair, and syndesmotic repair of the right ankle. She reports she is continuing to walk with the surgical shoe without difficulty. She is continuing to work with resistance bands at home and doing home exercises to increase strength to lower extremity. She has been continuing to apply the topical tacrolimus ointment and is demonstrating continued improvement to medial leg ulceration and lateral leg remains healed. Tolerated previous silver nitrate procedure well. She denies constitutional symptoms today. Denies further complaints today. Objective Data Objective Data Vital Signs: Vital Signs Temp Pulse Resp BP O2 Del Method 97.2 F L 88 18 156/65 H Room Air 11/12/23 11:24 11/12/23 11:24 11/12/23 11:24 11/12/23 11:10/22/23 11:19 Oxygen Delivery Method Room Air Lab / Micro Data Micro: Microbiology 10/30/23 11:00 Wound - Ankle Gram Stain - Final 10/30/23 11:00 Wound - Ankle Wound Culture - Final Staphylococcus aureus Corynebacterium species 10/30/23 11:00 Wound - Ankle Anaerobic Culture - Final Winkia neuii Anaerobic cocci Physical Exam Const alert, oriented x3 and no apparent distress General Appearance: cooperative HEENT normocephalic Eyes General Eye: normal appearance of both eyes Neck General: normal visual inspection Lymph Lymphatic: no lymphadenopathy noted and no lymphedema noted Resp normal respiratory effort Cardio regular rate and regular rhythm Extremity normal capillary refill, no calf tenderness and no pedal edema Extremity Narrative: Vascular DP and PT pulses palpable bilateral. Capillary fill time less than 3 seconds to digits bilateral. Dermatological: There is bilateral lower extremity edema secondary to chronic venous stasis with some hemosiderin deposition noted about the right lower extremity. The surgical dehiscence of the proximal incision on the right lower extremity with subsequent ulceration has healed. Surrounding skin does have resolving rubor secondary to chronic venous stasis in addition to autoimmune disease. No signs of infection. Distal aspect of the incision right lateral leg is a well-healed cicatrix. Anterior lateral leg demonstrates well-healed cicatrix. No signs of infection. Medial ankle wound secondary to autoimmune response with rubor noted with some tenderness to palpation. - Improving ulcerations with use of topical tacrolimus ointment On 08/28/2023 she demonstrated worsening of the medial and lateral ulcerative sites with deep purple violaceous border and hypertrophy of the wound bed and was started on oral steroid for possible pyoderma gangrenosum. She returned again on 09/03/2023 following oral steroid with noted improvement in tissue color surrounding the ulcerative sites and decreasing hypertrophy of the wound bed tissue. Pain also noted to be improving following oral steroid. Debridement was stopped. Musculoskeletal: Muscle strength 5 of 5 age-appropriate. No pain to palpation about the lateral leg of the right lower extremity. Skin no rashes or lesions noted, skin turgor normal and no jaundice Neuro moves all extremities Debridement Note Debridement Note No debridement was completed: No debridement was completed today Post-Debridement Measurements and Additional Note: Post-Debridement Measurements/Treatment WC - Nurse 1 - General Ulcer Assessment Start: 10/22/23 11:19 Freq: Status: Active Protocol: NEELA.LOWEXT Activity Type Activity Date Activity User E-sign Co-sign Detail Recorded Client Recorded Date Recorded By Document 10/22/23 11:19 KW Desktop 10/22/23 11:29 KW Document 10/30/23 10:44 RB Desktop 10/30/23 10:51 RB Document 11/05/23 11:24 DL [email or web address] 11/05/23 11:34 DL Document 11/12/23 11:24 RB wound cemter 11/12/23 11:28 RB 10/22/23 10/30/23 11/05/23 11:19 10:44 11:24 WC - Today's Visit Information Type of service Follow-up Visit Follow-up Visit Follow-up Visit (Physician/TRUCK FARMER (Physician/TRUCK FARMER (Physician/TRUCK FARMER ) ) ) Arrival Mode Ambulatory Ambulatory Ambulatory, Walker Transfer Assistance None None Patient Identification Verified (Name & Yes Yes Yes ) Patient Requires Transmission-Based No No Precautions Vital Signs Temperature (97.8 F-99.1 F) 98.0 F 96.4 F L 97.3 F L Temperature Source Temporal Temporal Temporal Pulse Rate (60-100) 95 89 91 Pulse Location Monitor Monitor Monitor Respiratory Rate (12-18) 18 18 20 H Respiratory rate source Observation Observation Observation Oxygen Delivery Method Room Air Blood Pressure (90/60-120/80) 132/90 H 144/81 H 158/95 H Blood Pressure Mean (mm Hg) 104 102 116 Source Monitor Monitor Monitor Position Sitting Semi-Fowlers Blood Pressure Location Left Arm Left Arm History Since Last Visit- (Skip if this is Patient's initial visit) Have you changed medications since your No No No last visit? Any new allergies or adverse reactions No No No Had a fall/change in ADL's that may No No No increase risk of falls Signs or symptoms of abuse and/or No No No neglect since last visit Have you been in the hospital since your No No No last visit? Has dressing in place as prescribed Yes Yes Yes Has compression in place as prescribed Yes Yes Yes Has offloadiing in place as prescribed Yes No Yes Experienced any changes in pain level or No No No management Left Footwear Regular Shoe Right Footwear Surgical Shoe with pressure relief insole Pain Scale: 0-10 Numeric Is Patient Pain Free? Yes No Yes RLE -Description Aching -Intensity 5 -Duration (hours) -Pain Behavior Withdrawal from Touch -Pain Aggravating Factors ADL's -Alleviating Factors/Interventions Medication -Effectiveness of Alleviating Factor/ Moderately Intervention effective 11/12/23 11:24 WC - Today's Visit Information Type of service Follow-up Visit (Physician/TRUCK FARMER ) Arrival Mode Ambulatory Transfer Assistance None Patient Identification Verified (Name & Yes ) Patient Requires Transmission-Based No Precautions Vital Signs Temperature (97.8 F-99.1 F) 97.2 F L Temperature Source Temporal Pulse Rate (60-100) 88 Pulse Location Monitor Respiratory Rate (12-18) 18 Respiratory rate source Observation Oxygen Delivery Method Blood Pressure (90/60-120/80) 156/65 H Blood Pressure Mean (mm Hg) 95 Source Monitor Position Semi-Fowlers Blood Pressure Location Left Arm History Since Last Visit- (Skip if this is Patient's initial visit) Have you changed medications since your No last visit? Any new allergies or adverse reactions No Had a fall/change in ADL's that may No increase risk of falls Signs or symptoms of abuse and/or No neglect since last visit Have you been in the hospital since your No last visit? Has dressing in place as prescribed Yes Has compression in place as prescribed No Has offloadiing in place as prescribed No Experienced any changes in pain level or No management Left Footwear Right Footwear Pain Scale: 0-10 Numeric Is Patient Pain Free? No RLE -Description Burning,Aching -Intensity 5 -Duration (hours) Chronic -Pain Behavior Withdrawal from Touch -Pain Aggravating Factors ADL's,Walking, Debridement -Alleviating Factors/Interventions Medication -Effectiveness of Alleviating Factor/ Moderately Intervention effective WC - Nurse 1 - General Ulcer Measurement Start: 10/22/23 11:19 Freq: Status: Active Protocol: Activity Type Activity Date Activity User E-sign Co-sign Detail Recorded Client Recorded Date Recorded By Document 10/22/23 11:19 KW Desktop 10/22/23 11:29 KW Document 10/30/23 10:44 RB Desktop 10/30/23 10:51 RB Document 11/05/23 11:24 DL [email or web address] 11/05/23 11:34 DL Document 11/12/23 11:24 RB wound cemter 11/12/23 11:28 RB Edit Result 11/12/23 11:24 RB (1) wound cemter 11/12/23 11:29 RB (1) Lower Limb Edema Present => Yes Right Calf (cm) => 46.5 Right Ankle (cm) => 27.5 10/22/23 10/30/23 11/05/23 11:19 10:44 11:24 Wound Center Nurse 1 #1 RT LAT ANKLE CLUSTER -Combined with other wound No -Current Size (cm) - Length 0.1 1 0.1 -Current Size (cm) - Width 0.1 0.8 0.1 -Current Size (cm) - Depth 0.1 0.2 0.1 -Total Square Cm 0.01 0.8 0.01 -Date of Last Picture (Recall this 10/22/23 field) -Epithelialization -Tunneling No -Undermining/Tunneling No -Circular Undermining No -Exudate Amt Medium None Present -Exudate Type Serosanguineous -Wound Margin Distinct, Distinct, Outline Outline Attached Attached -Granulation Amt Medium (34-66%) Large (67-100%) -Granulation Quality Pale,Roxana Hyper- Roxana granulation, Roxana,Red -Slough/Fibrin Yes -Necrosis Amt Medium (34-66%) None Present (0 %) -Necrotic Tissue Type Adherent Slough -Structure Exposed N/A N/A -Texture (Meghan-wound Skin Appearance) Assessed Assessed Localized Edema ,Scarring -Moisture (Meghan-wound Skin Appearance) Assessed Assessed No Abnormality -Color (Meghan-wound Skin Appearance) Assessed, Assessed Erythema Erythema -Temperature (Meghan-wound Skin No Abnormality No Abnormality No Abnormality Appearance) (Pt Warm) (Pt Warm) (Pt Warm) -Tenderness on Palpation (Meghan-wound No No Yes Skin Appearance) -Ulcer Cleansing Rinsed/ Wound Cleanser Soap and Water Irrigated with Saline -Foul Odor after Cleansing No No -Anesthetic Used 5% Lidocaine Gel #2 RT MED ANKLE -Combined with other wound -Current Size (cm) - Length 0.8 0.7 -Current Size (cm) - Width 0.7 0.6 -Current Size (cm) - Depth 0.1 -Total Square Cm 0.56 0.42 -Date of Last Picture (Recall this 10/22/23 field) -Tunneling -Undermining/Tunneling -Circular Undermining -Exudate Amt Small -Exudate Type Serosanguineous -Wound Margin Distinct, Outline Attached -Granulation Amt Medium (34-66%) -Granulation Quality Hyper- Roxana granulation -Slough/Fibrin -Necrosis Amt Medium (34-66%) -Necrotic Tissue Type Adherent Slough -Structure Exposed N/A -Texture (Meghan-wound Skin Appearance) Localized Edema ,Scarring -Moisture (Meghan-wound Skin Appearance) No Abnormality -Color (Meghan-wound Skin Appearance) Erythema Erythema -Temperature (Meghan-wound Skin No Abnormality Appearance) (Pt Warm) -Tenderness on Palpation (Meghan-wound Yes Skin Appearance) -Ulcer Cleansing Rinsed/ Soap and Water Irrigated with Saline -Foul Odor after Cleansing No -Anesthetic Used 5% Lidocaine Gel Lower Limb Edema Present Yes Right Calf (cm) 45 46 Right Ankle (cm) 29.5 29.5 Left Calf (cm) 42.8 Left Ankle (cm) 28 11/12/23 11:24 Wound Center Nurse 1 #1 RT LAT ANKLE CLUSTER -Combined with other wound No -Current Size (cm) - Length 0.1 -Current Size (cm) - Width 0.1 -Current Size (cm) - Depth 0.1 -Total Square Cm 0.01 -Date of Last Picture (Recall this field) -Epithelialization Large 67-100% -Tunneling No -Undermining/Tunneling No -Circular Undermining No -Exudate Amt Medium -Exudate Type Serosanguineous -Wound Margin Distinct, Outline Attached -Granulation Amt Large (67-100%) -Granulation Quality Roxana -Slough/Fibrin Yes -Necrosis Amt Small (1-33%) -Necrotic Tissue Type Adherent Slough -Structure Exposed N/A -Texture (Meghan-wound Skin Appearance) Assessed -Moisture (Meghan-wound Skin Appearance) Assessed -Color (Meghan-wound Skin Appearance) Assessed -Temperature (Meghan-wound Skin No Abnormality Appearance) (Pt Warm) -Tenderness on Palpation (Meghan-wound No Skin Appearance) -Ulcer Cleansing Wound Cleanser -Foul Odor after Cleansing No -Anesthetic Used #2 RT MED ANKLE -Combined with other wound No -Current Size (cm) - Length 0.6 -Current Size (cm) - Width 0.5 -Current Size (cm) - Depth 0.2 -Total Square Cm 0.30 -Date of Last Picture (Recall this field) -Tunneling No -Undermining/Tunneling No -Circular Undermining No -Exudate Amt Medium -Exudate Type Serosanguineous -Wound Margin Distinct, Outline Attached -Granulation Amt Medium (34-66%) -Granulation Quality Roxana -Slough/Fibrin Yes -Necrosis Amt -Necrotic Tissue Type Adherent Slough -Structure Exposed N/A -Texture (Meghan-wound Skin Appearance) Assessed -Moisture (Meghan-wound Skin Appearance) Assessed -Color (Meghan-wound Skin Appearance) Assessed -Temperature (Meghan-wound Skin No Abnormality Appearance) (Pt Warm) -Tenderness on Palpation (Meghan-wound No Skin Appearance) -Ulcer Cleansing Wound Cleanser -Foul Odor after Cleansing No -Anesthetic Used 5% Lidocaine Gel Lower Limb Edema Present Yes Right Calf (cm) 46.5 Right Ankle (cm) 27.5 Left Calf (cm) Left Ankle (cm) WC - Nurse 2 - General Ulcer CM Notes Start: 10/22/23 11:19 Freq: Status: Active Protocol: Activity Type Activity Date Activity User E-sign Co-sign Detail Recorded Client Recorded Date Recorded By Document 10/22/23 11:51 [facility] Desktop 10/22/23 11:54 [facility] Document 10/30/23 11:04 Desktop 10/30/23 11:07 Document 11/05/23 11:42 [facility] [email or web address] 11/05/23 11:54 [facility] Document 11/12/23 11:32 [facility] [id number] 11/12/23 11:37 [facility] 10/22/23 10/30/23 11/05/23 11:51 11:04 11:42 Wound Center Nurse 2 #1 RT LAT ANKLE CLUSTER -Time 11:04 -Correct Patient Yes -Correct Side, Site, Position Yes -Post Debridement (cm) - Length 0.3 1.0 0.1 -Post Debridement (cm) - Width 0.3 0.8 0.1 -Post Debridement (cm) - Depth 0.1 0.1 0.1 -Total Square (Post) (cm) 0.09 0.80 0.01 -Area of Debridement (cm) - Length 0.3 0.1 -Area of Debridement (cm) - Width 0.3 0.1 -Total Square (Area) (cm) 0.09 0.01 -Wound/Ulcer Outcome Not Healed Not Healed Not Healed -Ulcer Cleansing Rinsed/ Irrigated with Saline -Foul Odor after Cleansing No -Bioengineered Tissue No -Bleeding Controlled with NA Silver Nitrate #2 RT MED ANKLE -Time 11:52 -Correct Patient Yes -Correct Side, Site, Position Yes -Correct Procedure Yes -Procedure Performed Yes -Type of Procedure Debridement -Clinical Debridement Subcutaneous -Tissue Removed Subcutaneous -Post Debridement (cm) - Length 0 0.6 -Post Debridement (cm) - Width 0 0.5 -Post Debridement (cm) - Depth 0 0.1 -Total Square (Post) (cm) 0 0.30 -Area of Debridement (cm) - Length 0 0.6 -Area of Debridement (cm) - Width 0 0.5 -Total Square (Area) (cm) 0 0.30 -Tunneling No -Undermining/Tunneling No -Circular Undermining No -Wound/Ulcer Outcome Healed- Not Healed Epithelialized -Ulcer Cleansing Rinsed/ Irrigated with Saline -Foul Odor after Cleansing No -Bioengineered Tissue No -Bleeding Controlled with Silver Nitrate -Treatment Response Procedure Tolerated Well -Debridement - Subq, 1st 20sq cm Yes Pain Scale: 0-10 Numeric Is Patient Pain Free? Yes Yes Yes 11/12/23 11:32 Wound Center Nurse 2 #1 RT LAT ANKLE CLUSTER -Time -Correct Patient -Correct Side, Site, Position -Post Debridement (cm) - Length 0 -Post Debridement (cm) - Width 0 -Post Debridement (cm) - Depth 0 -Total Square (Post) (cm) 0 -Area of Debridement (cm) - Length 0 -Area of Debridement (cm) - Width 0 -Total Square (Area) (cm) 0 -Wound/Ulcer Outcome Healed- Epithelialized -Ulcer Cleansing -Foul Odor after Cleansing -Bioengineered Tissue -Bleeding Controlled with #2 RT MED ANKLE -Time -Correct Patient -Correct Side, Site, Position -Correct Procedure -Procedure Performed -Type of Procedure -Clinical Debridement -Tissue Removed -Post Debridement (cm) - Length 0.5 -Post Debridement (cm) - Width 0.5 -Post Debridement (cm) - Depth 0.1 -Total Square (Post) (cm) 0.25 -Area of Debridement (cm) - Length 0.5 -Area of Debridement (cm) - Width 0.5 -Total Square (Area) (cm) 0.25 -Tunneling No -Undermining/Tunneling No -Circular Undermining No -Wound/Ulcer Outcome Not Healed -Ulcer Cleansing -Foul Odor after Cleansing No -Bioengineered Tissue No -Bleeding Controlled with NA -Treatment Response -Debridement - Subq, 1st 20sq cm Pain Scale: 0-10 Numeric Is Patient Pain Free? Yes - Nurse 3 - General Ulcer D/C NN Start: 10/22/23 11:19 Freq: Status: Active Protocol: Activity Type Activity Date Activity User E-sign Co-sign Detail Recorded Client Recorded Date Recorded By Document 10/22/23 12:04 KW Desktop 10/22/23 12:05 KW Document 10/30/23 11:29 RB Desktop 10/30/23 11:30 RB Document 11/12/23 11:55 DL [email or web address] 11/12/23 11:56 DL 10/22/23 10/30/23 11/12/23 12:04 11:29 11:55 Wound Care Center Nurse 3 #1 RT LAT ANKLE CLUSTER -Primary Dressing Applied NonAdherent NonAdherent Contact Layer Contact Layer -Primary Dressing Covered/Secured with Dry Gauze & Dry Gauze,Dry Roll Gauze, Gauze & Roll Secured with Gauze,Secured Tape with Tape #2 RT MED ANKLE -Ulcer Cleansing Rinsed/ Irrigated with Saline -Foul Odor after Cleansing No -Primary Dressing Applied Aquacel Extra, NonAdherent Contact Layer -Aquacel Extra 1 Right -Tubular Bandage Single Layer Single Layer Single Layer -Size of Tubigrip Used Size D Size D Size D -Size D ($) 1 1 1 Treatment Response Procedure Tolerated Well Pain Scale: 0-10 Numeric Is Patient Pain Free? Yes Yes Yes WC - Visit Discharge Discharge Condition Stable Stable Stable Ambulatory Status Ambulatory Ambulatory Ambulatory, Walker Transportation Private Auto Private Auto Medication Reconcilliation completed & No No provided to patient/care provider Clinical Summary of Care Provided Yes Yes Notes: kneewalker Assessment/Plan Assessment/Plan (1) Pyoderma gangrenosum: CODE(S): L88 - Pyoderma gangrenosum (2) Non-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: CODE(S): L97.312 - Non-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 (3) Non-pressure chronic ulcer of right calf with fat layer exposed: CODE(S): L97.212 - Non-pressure chronic ulcer of right calf with fat layer exposed (4) Surgical wound dehiscence: CODE(S): T81.31XA - Disruption of external operation (surgical) wound, not elsewhere classified, initial encounter QUALIFIERS: Encounter type: subsequent encounter Qualified Code(s): T81.31XD - Disruption of external operation (surgical) wound, not elsewhere classified, subsequent encounter (5) Injury of peroneal tendon of right foot: CODE(S): S86.301A - Unspecified injury of muscle(s) and tendon(s) of peroneal muscle group at lower leg level, right leg, initial encounter QUALIFIERS: Encounter type: subsequent encounter Qualified Code(s): S86.301D - Unspecified injury of muscle(s) and tendon(s) of peroneal muscle group at lower leg level, right leg, subsequent encounter (6) Rupture of ligament of right ankle: CODE(S): S93.401A - Sprain of unspecified ligament of right ankle, initial encounter (7) Syndesmotic disruption of right ankle: CODE(S): S93.431A - Sprain of tibiofibular ligament of right ankle, initial encounter QUALIFIERS: Encounter type: subsequent encounter Qualified Code(s): S93.431D - Sprain of tibiofibular ligament of right ankle, subsequent encounter (8) Peroneal tendinitis, right leg: CODE(S): M76.71 - Peroneal tendinitis, right leg (9) Pain in right lower leg: CODE(S): M79.661 - Pain in right lower leg (10) Venous insufficiency (chronic) (peripheral): CODE(S): I87.2 - Venous insufficiency (chronic) (peripheral) PLAN: Plan Patient seen and evaluated She presents today postoperatively s/p primary repair of split tear of peroneal brevis tendon, primary repair of anterior tibiofibular ligament (AITFL), and syndesmotic reduction via tight rope DOS 04/24/2023, POD #202 Currently 7 months out of surgery. She did see Dr. Morgan on 10/30/2023 and she did perform debridement with silver nitrate procedure and instructed her to continue to apply the topical tacrolimus following procedure. Cultures were obtained at this visit demonstrating Staph aureus. She had previously been on oral antibiotics without improvement of the wound. Wound did improve with topical tacrolimus/steroid treatment. States pain to her right lateral ankle is continuing to improve she is continuing weight bearing to the Right foot. Denies calf pain today. Pain in leg is improving about wounds. She reports this did begin to open up on 06/02/2023 following lower extremity swelling secondary to her chronic venous insufficiency. Dehiscence occurred 2 weeks following the removal of her sutures. Denies calf pain today. Negative Robertson sign & Negative Ro's sign. States no pain along peroneal tendon or to eversion of the foot or at anterior lateral ankle overlying the ATIFL. Does have tenderness to the medial and lateral ankle ulceration secondary pyoderma gangrenosum. She has remained protective weightbearing to the right lower extremity with surgical shoe. States the stiffness in the ankle has improved through use of therapy bands and home exercises. Discussed transition to supportive shoe gear again today which she will return to once ulcerations have healed. Encouraged continued ambulation in supportive shoe gear vs surgical shoe. Currently full weightbearing in surgical shoe without difficulty. Dressings were removed today and site was inspected. Anterior lateral ankle demonstrates well-healed cicatrix. Lateral ankle demonstrates well-healed cicatrix distally and proximally healed ulceration. Medial ankle wound secondary to pyroderma gangrenosum. Overall healing well. Ulceration did not undergo debridement as noted in the clinical panel above. Previously had silver nitrate application and tolerated this well. Ulceration lateral leg remains healed today. Medial ankle ulceration measures 0.5 cm x 0.5 cm x 0.2 cm. Her pyoderma gangrenosum is responding well to the topical tacrolimus and ulcerations are decreasing in size. Will continue applying topical tacrolimus 0.1% cream daily. Tubigrip compression stocking applied to the lower extremity. She was also encouraged to transition to full weightbearing to the right lower extremity in supportive shoe gear and elevate lower extremity at all times of rest for edema control. On 08/28/2023 she demonstrated worsening of the medial and lateral ulcerative sites with deep purple violaceous border and hypertrophy of the wound bed and was started on oral steroid for possible pyoderma gangrenosum. She returned again on 09/03/2023 following oral steroid with noted improvement in tissue color surrounding the ulcerative sites and decreasing hypertrophy of the wound bed tissue. Pain also noted to be improving following oral steroid at that time. Debridement was stopped and oral steroid was started continued for additional week following addition of topical Tacrolimus with plan to monitor response. There is a significant improvement with continued reduction in size of the ulceration versus previous visit. She is discussing with Rheumatology and Equity Holder utilizing new medication once wound is healed. Patient is currently on immunosuppressant agents for autoimmune disease Patient is stating the pain is improved following the use of the steroid and the steroid course was extended as I do feel she has pyoderma gangrenosum. 09/10/2023 she was prescribed topical tacrolimus 0.1% to apply the wound bed daily. Will continue the topical steroid which is working and she is demonstrating healing of ulcerative sites, will continue to monitor. At this time she does continue to demonstrate healing progress of the wound and local tissue. Ulcerations are nearing closure. Discussed adequate protein intake to aid in wound healing. She will continue Oscar supplementation. Discussed continuing range of motion exercises while nonweightbearing, including working with resistance bands to increase lower extremity strength. Discussed as wound nears closure physical therapy will be implemented to improve strength and motion to the right lower extremity. Discussed transition to supportive shoe gear to the right lower extremity. Her gait is noted to be much improved versus prior to surgical intervention. Discussed once wound has healed we will begin physical therapy to increase strength and flexibility of the right lower extremity. At this time overall prognosis is good but complicated due to surgical dehiscence/pyoderma gangrenosum, will continue topical tacrolimus. Venous studies were performed 07/09/2023, no evidence of DVT. Valvular competence appears intact within the proximal deep venous system bilaterally. Great saphenous vein appears bilaterally patent and compressible segmentally. Saphenofemoral junctions are bilaterally competent. There is segmental valvular incompetence noted in the great saphenous veins bilaterally small saphenous veins patent and competent on the right and patent and incompetent on the left. There are several incompetent accessory saphenous veins and tributaries in the right lower extremity and 2 accessory saphenous veins of the left calf are incompetent. Discussed signs and symptoms of infection. Discussed with her if she notices increasing redness about the ulcerative site that moves up the leg, purulent drainage from the ulcerative site, increasing foul odor from the ulcerative site, or if she develops fever greater than 101 degree, develops nausea, vomiting, chills, these are signs of a progressing infection and she should report to the ED for IV antibiotics. She voices understanding of this today. The following work up and care recommendations were made: Dressing: Tacrolimus ointment, Adaptic, Dry sterile dressing. Change dressing daily Wash: Soap and water Tissue growth optimization: Topical tacrolimus Offload: To transition to full weightbearing to the right lower extremity in supportive shoe gear. foot. Patient was previously in CAM boot until surgical wound dehiscence. Transitioned back to surgical shoe to allow for decreased pressure at the wound site on the leg. Vascular: DP and PT pulses palpable with adequate capillary fill time to digits. Edema: Patient does have chronic venous insufficiency with bilateral lower extremity edema. Tubigrip compression is applied. Once wound is closed she will return to her prescription compression stockings. Infection: No signs of infection. Pain: May take [id number] Tylenol for discomfort Host factors: Chronic venous insufficiency, autoimmune disease, pyoderma gangrenosum I answered all the patient's questions. To return to the wound healing center in 2 weeks or call sooner if the patient has any questions or concerns. Will RTC for continued wound healing and postoperative care s/p primary repair of split tear of peroneal brevis tendon, primary repair of anterior tibiofibular ligament (AITFL), and syndesmotic repair via tight rope right lower extremity.
== END 2023-11-20 23:59 | disposition home or self-care (01) ==
LOC: WC 11:00
PROVIDERS: PCP Internal Medicine; Referring Provider Student in an Organized Health Care Education/Training Program; Visit Provider Student in an Organized Health Care Education/Training Program
DX: T81.31XA Disruption of external operation (surgical) wound, not elsewhere classified, initial encounter (principal); L97.312 Non-pressure chronic ulcer of right 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; L97.212 Non-pressure chronic ulcer of right calf with fat layer exposed; L88 Pyoderma gangrenosum; S93.401S Sprain of unspecified ligament of right ankle, sequela; S93.431S Sprain of tibiofibular ligament of right ankle, sequela; M76.71 Peroneal tendinitis, right leg; I87.2 Venous insufficiency (chronic) (peripheral); Z79.899 Other long term (current) drug therapy
CPT/HCPCS: 11042; 87070; 87075; 87077; 87186; 87205; 99213; G0463

== ENCOUNTER 2023-12-17 11:15 | Outpatient (RCR) | payer MEDICARE, MEDICAID, SELFPAY ==
[2023-11-21 02:11] VITALS: BP 153/78; PULSE 98; RESP 18; TEMP 36.6
[2023-11-26 11:22] VITALS: BP 140/78; PULSE 95; RESP 16; TEMP 36.3
--- NOTE | 2023-11-26 13:00 | PCM.WC.PN ---
History of Present Illness Date of Service: 11/26/23 Chief Complaint: Surgical wound dehiscence right leg History of Wound: Patient is a 38-year-old female who subsequently developed a surgical wound dehiscence of her right lateral lower extremity. She previously underwent surgery for primary repair of split tear of the peroneus brevis tendon, primary repair of anterior tibiofibular ligament (AITFL), and syndesmotic reduction via tight rope of the right lower extremity on 04/24/2023. Following removal of sutures she developed surgical wound dehiscence secondary to continued lower extremity swelling via chronic venous insufficiency. She did undergo debridement in office 06/05/2023 and Deidre was applied at this time with Tubigrip compression. She has worn compression stockings to manage lower extremity swelling prior to surgical intervention. Patient is also noted to have autoimmune disease and is managed by rheumatology with medication and did resume all medications 2 weeks post operative per rheumatology. She was referred to the wound care center for continued wound healing. She has been applying Deidre and dry sterile dressings daily. She denies N/V/F/chills. Denies further complaints. Subjective Subjective Patient is a 38-year-old female who presents to the wound care center today for f/u of a right lateral leg surgical dehiscence s/p repair of split tear of peroneal brevis tendon, AITFL ligament repair, and syndesmotic repair of the right ankle. She reports she is continuing to walk in the surgical shoe without difficulty. She is continuing to work with resistance bands at home and continuing home exercises to increase strength to lower extremity. She has continued to apply the topical tacrolimus ointment and is demonstrating continued improvement to medial leg ulceration. Her lateral leg remains healed. She denies constitutional symptoms today. Denies further complaints today. Objective Data Objective Data Vital Signs: Vital Signs Temp Pulse Resp BP 97.3 F L 95 16 140/78 H 11/26/23 11:22 11/26/23 11:22 11/26/23 11:22 11/26/23 11:22 Physical Exam Const alert, oriented x3 and no apparent distress General Appearance: cooperative HEENT normocephalic Eyes General Eye: normal appearance of both eyes Neck General: normal visual inspection Lymph Lymphatic: no lymphadenopathy noted and no lymphedema noted Resp normal respiratory effort Cardio regular rate and regular rhythm Extremity normal capillary refill, no joint enlargement, no calf tenderness and no pedal edema Extremity Narrative: Vascular DP and PT pulses palpable bilateral. Capillary fill time less than 3 seconds to digits bilateral. Normal temperature gradient. There is hair growth present to lower extremity and digits. Dermatological: There is bilateral lower extremity edema secondary to chronic venous stasis with some hemosiderin deposition noted about the right lower extremity. The surgical dehiscence of the proximal incision on the right lower extremity with subsequent ulceration remains healed. Surrounding skin does have resolving rubor secondary to chronic venous stasis in addition to autoimmune disease. No signs of infection. Distal aspect of the incision right lateral leg is a well-healed cicatrix. Anterior lateral leg demonstrates well-healed cicatrix. No signs of infection. Medial ankle wound secondary to autoimmune response with rubor noted with some tenderness to palpation. - Improving ulcerations with use of topical tacrolimus ointment On 08/28/2023 she demonstrated worsening of the medial and lateral ulcerative sites with deep purple violaceous border and hypertrophy of the wound bed and was started on oral steroid for possible pyoderma gangrenosum. She returned again on 09/03/2023 following oral steroid with noted improvement in tissue color surrounding the ulcerative sites and decreasing hypertrophy of the wound bed tissue. Pain also noted to be improving following oral steroid. Debridement was stopped. Musculoskeletal: Muscle strength 5 of 5 age-appropriate. No pain to palpation about the lateral leg of the right lower extremity. Skin no rashes or lesions noted, skin turgor normal and no jaundice Neuro moves all extremities Debridement Note Debridement Note No debridement was completed: No debridement was completed today Post-Debridement Measurements and Additional Note: Post-Debridement Measurements/Treatment [facility] Nurse 1 - General Ulcer Assessment Start: 11/26/23 11:19 Freq: Status: Active Protocol: .LOWEXT Activity Type Activity Date Activity User E-sign Co-sign Detail Recorded Client Recorded Date Recorded By Document 11/26/23 11:22 11/26/23 11:29 11/26/23 11:22 - Today's Visit Information Type of service Follow-up Visit (Physician/[employer] ) Arrival Mode Ambulatory Transfer Assistance None Patient Identification Verified (Name & Yes ) Patient Requires Transmission-Based No Precautions Safety Precautions NA Vital Signs Temperature (97.8 F-99.1 F) 97.3 F L Temperature Source Temporal Pulse Rate (60-100) 95 Pulse Location Monitor Respiratory Rate (12-18) 16 Respiratory rate source Observation Blood Pressure (90/60-120/80) 140/78 H Blood Pressure Mean (mm Hg) 98 Source Monitor Position Sitting Blood Pressure Location Left Forearm History Since Last Visit- (Skip if this is Patient's initial visit) Have you changed medications since your Yes last visit? Any new allergies or adverse reactions No Had a fall/change in ADL's that may No increase risk of falls Signs or symptoms of abuse and/or No neglect since last visit Have you been in the hospital since your No last visit? Has dressing in place as prescribed Yes Has compression in place as prescribed Yes Has offloadiing in place as prescribed N/A Experienced any changes in pain level or No management Left Footwear Regular Shoe Right Footwear Regular Shoe Pain Scale: 0-10 Numeric Is Patient Pain Free? No WC - Nurse 1 - General Ulcer Measurement Start: 11/26/23 11:19 Freq: Status: Active Protocol: Activity Type Activity Date Activity User E-sign Co-sign Detail Recorded Client Recorded Date Recorded By Document 11/26/23 11:22 11/26/23 11:29 ITZ 11/26/23 11:22 Wound Center Nurse 1 #2 RT MED ANKLE -Current Size (cm) - Length 0.3 -Current Size (cm) - Width 0.3 -Current Size (cm) - Depth 0.1 -Total Square Cm 0.09 -Date of Last Picture (Recall this 11/26/23 field) -Photo Taken Yes -Epithelialization None Present -Tunneling No -Undermining/Tunneling No -Exudate Amt Small -Exudate Type Serous -Wound Margin Flat & Intact -Granulation Amt Large (67-100%) -Granulation Quality [place] -Slough/Fibrin No -Structure Exposed N/A -Texture (Meghan-wound Skin Appearance) No Abnormality -Moisture (Meghan-wound Skin Appearance) No Abnormality -Color (Meghan-wound Skin Appearance) No Abnormality -Temperature (Meghan-wound Skin No Abnormality Appearance) (Pt Warm) -Tenderness on Palpation (Meghan-wound No Skin Appearance) -Ulcer Cleansing Rinsed/ Irrigated with Saline -Foul Odor after Cleansing No -Anesthetic Used 5% Lidocaine Gel Right Calf (cm) 43 Right Ankle (cm) 29 WC - Nurse 2 - General Ulcer CM Notes Start: 11/26/23 11:19 Freq: Status: Active Protocol: Activity Type Activity Date Activity User E-sign Co-sign Detail Recorded Client Recorded Date Recorded By Document 11/26/23 11:48 [facility] 11/26/23 11:51 [facility] 11/26/23 11:48 Wound Center Nurse 2 #2 RT MED ANKLE -Post Debridement (cm) - Length 0.3 -Post Debridement (cm) - Width 0.3 -Post Debridement (cm) - Depth 0.1 -Total Square (Post) (cm) 0.09 -Area of Debridement (cm) - Length 0.3 -Area of Debridement (cm) - Width 0.3 -Total Square (Area) (cm) 0.09 -Wound/Ulcer Outcome Not Healed -Bleeding Controlled with NA Pain Scale: 0-10 Numeric Is Patient Pain Free? Yes - Nurse 3 - General Ulcer D/C NN Start: 11/26/23 11:19 Freq: Status: Active Protocol: Activity Type Activity Date Activity User E-sign Co-sign Detail Recorded Client Recorded Date Recorded By Document 11/26/23 11:56 wound center 11/26/23 11:58 11/26/23 11:56 Wound Care Center Nurse 3 #2 RT MED ANKLE -Primary Dressing Applied Aquacel Extra, NonAdherent Contact Layer -Primary Dressing Covered/Secured with Dry Gauze & Roll Gauze, Secured with Tape -Aquacel Extra 1 Right -Tubular Bandage Single Layer -Size of Tubigrip Used Size D -Size D ($) 1 Pain Scale: 0-10 Numeric Is Patient Pain Free? Yes - Visit Discharge Discharge Condition Stable Ambulatory Status Ambulatory Medication Reconcilliation completed & No provided to patient/care provider Clinical Summary of Care Provided Yes Assessment/Plan Assessment/Plan (1) Pyoderma gangrenosum: CODE(S): L88 - Pyoderma gangrenosum (2) Non-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: CODE(S): L97.312 - Non-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 (3) Non-pressure chronic ulcer of right calf with fat layer exposed: CODE(S): L97.212 - Non-pressure chronic ulcer of right calf with fat layer exposed (4) Venous insufficiency (chronic) (peripheral): CODE(S): I87.2 - Venous insufficiency (chronic) (peripheral) (5) Surgical wound dehiscence: CODE(S): T81.31XA - Disruption of external operation (surgical) wound, not elsewhere classified, initial encounter QUALIFIERS: Encounter type: subsequent encounter Qualified Code(s): T81.31XD - Disruption of external operation (surgical) wound, not elsewhere classified, subsequent encounter (6) Injury of peroneal tendon of right foot: CODE(S): S86.301A - Unspecified injury of muscle(s) and tendon(s) of peroneal muscle group at lower leg level, right leg, initial encounter QUALIFIERS: Encounter type: subsequent encounter Qualified Code(s): S86.301D - Unspecified injury of muscle(s) and tendon(s) of peroneal muscle group at lower leg level, right leg, subsequent encounter (7) Rupture of ligament of right ankle: CODE(S): S93.401A - Sprain of unspecified ligament of right ankle, initial encounter (8) Syndesmotic disruption of right ankle: CODE(S): S93.431A - Sprain of tibiofibular ligament of right ankle, initial encounter QUALIFIERS: Encounter type: subsequent encounter Qualified Code(s): S93.431D - Sprain of tibiofibular ligament of right ankle, subsequent encounter (9) Peroneal tendinitis, right leg: CODE(S): M76.71 - Peroneal tendinitis, right leg (10) Pain in right lower leg: CODE(S): M79.661 - Pain in right lower leg PLAN: Plan Patient seen and evaluated She presents today postoperatively s/p primary repair of split tear of peroneal brevis tendon, primary repair of anterior tibiofibular ligament (AITFL), and syndesmotic reduction via tight rope DOS 04/24/2023, POD #216 Currently 7 months, 2 weeks out of surgery. She did see Dr. Fernandes on 10/30/2023 and she did perform debridement with silver nitrate procedure and instructed her to continue to apply the topical tacrolimus following procedure. Cultures were obtained at this visit demonstrating Staph aureus. She had previously been on oral antibiotics without improvement of the wound. Wound did improve with topical tacrolimus/steroid treatment. States pain to her right lateral ankle is continuing to improve she is continuing weight bearing to the Right foot. Denies calf pain today. Pain in leg is improving about wounds. She reports incision did begin to open up on 06/02/2023 following lower extremity swelling secondary to her chronic venous insufficiency. Dehiscence occurred 2 weeks following the removal of her sutures. Denies calf pain today. Negative Robertson sign & Negative Ro's sign. States no pain along peroneal tendon or to eversion of the foot or at anterior lateral ankle overlying the ATIFL. Does have tenderness to the medial and lateral ankle ulceration secondary pyoderma gangrenosum. She has remained protective weightbearing to the right lower extremity with surgical shoe. States the stiffness in the ankle has improved through continued use of therapy bands and home exercises. Discussed transition to supportive shoe gear again today which she will return to once ulcerations have healed. Encouraged continued ambulation in supportive shoe gear vs surgical shoe. Currently full weightbearing in surgical shoe without difficulty. Dressings were removed today and site was inspected. Anterior lateral ankle demonstrates well-healed cicatrix. Lateral ankle demonstrates well-healed cicatrix distally and proximally healed ulceration. Medial ankle wound secondary to pyroderma gangrenosum. Overall healing well. Ulceration did not undergo debridement as noted in the clinical panel above. Previously had silver nitrate application and tolerated this well. Ulceration lateral leg remains healed today. Medial ankle ulceration measures 0.3 cm x 0.3 cm x 0.1 cm. Her pyoderma gangrenosum is responding well to the topical tacrolimus and ulcerations are decreasing in size. Will continue applying topical tacrolimus 0.1% cream daily. Tubigrip compression stocking applied to the lower extremity. She was also encouraged to transition to full weightbearing to the right lower extremity in supportive shoe gear and elevate lower extremity at all times of rest for edema control. On 08/28/2023 she demonstrated worsening of the medial and lateral ulcerative sites with deep purple violaceous border and hypertrophy of the wound bed and was started on oral steroid for possible pyoderma gangrenosum. She returned again on 09/03/2023 following oral steroid with noted improvement in tissue color surrounding the ulcerative sites and decreasing hypertrophy of the wound bed tissue. Pain also noted to be improving following oral steroid at that time. Debridement was stopped and oral steroid was started continued for additional week following addition of topical Tacrolimus with plan to monitor response. There improvement with continued reduction in size of the ulceration versus previous visit. She is discussing with Rheumatology and Registered Nurse Midwife utilizing new medication once wound is healed. Patient is currently on immunosuppressant agents for autoimmune disease Patient is stating the pain is improved following the use of the steroid and the steroid course was extended as I do feel she has pyoderma gangrenosum. 09/10/2023 she was prescribed topical tacrolimus 0.1% to apply the wound bed daily. Will continue the topical steroid which is working and she is demonstrating healing of ulcerative sites, will continue to monitor. At this time she does continue to demonstrate healing progress of the wound and local tissue. Ulcerations are nearing closure. Discussed adequate protein intake to aid in wound healing. She will continue Oscar supplementation. Discussed continuing range of motion exercises while nonweightbearing, including working with resistance bands to increase lower extremity strength. Discussed as wound nears closure physical therapy will be implemented to improve strength and motion to the right lower extremity. Discussed transition to supportive shoe gear to the right lower extremity. Her gait is noted to be much improved versus prior to surgical intervention. Discussed once wound has healed we will begin physical therapy to increase strength and flexibility of the right lower extremity. At this time overall prognosis is good but complicated due to surgical dehiscence/pyoderma gangrenosum, will continue topical tacrolimus. Venous studies were performed 07/09/2023, no evidence of DVT. Valvular competence appears intact within the proximal deep venous system bilaterally. Great saphenous vein appears bilaterally patent and compressible segmentally. Saphenofemoral junctions are bilaterally competent. There is segmental valvular incompetence noted in the great saphenous veins bilaterally small saphenous veins patent and competent on the right and patent and incompetent on the left. There are several incompetent accessory saphenous veins and tributaries in the right lower extremity and 2 accessory saphenous veins of the left calf are incompetent. Discussed signs and symptoms of infection. Discussed with her if she notices increasing redness about the ulcerative site that moves up the leg, purulent drainage from the ulcerative site, increasing foul odor from the ulcerative site, or if she develops fever greater than 101 degree, develops nausea, vomiting, chills, these are signs of a progressing infection and she should report to the ED for IV antibiotics. She voices understanding of this today. The following work up and care recommendations were made: Dressing: Tacrolimus ointment, Adaptic, Dry sterile dressing. Change dressing daily Wash: Soap and water Tissue growth optimization: Topical tacrolimus Offload: To transition to full weightbearing to the right lower extremity in supportive shoe gear. foot. Patient was previously in CAM boot until surgical wound dehiscence. Transitioned back to surgical shoe to allow for decreased pressure at the wound site on the leg. Vascular: DP and PT pulses palpable with adequate capillary fill time to digits. Edema: Patient does have chronic venous insufficiency with bilateral lower extremity edema. Tubigrip compression is applied. Once wound is closed she will return to her prescription compression stockings. Infection: No signs of infection. Pain: May take [id number] Tylenol for discomfort Host factors: Chronic venous insufficiency, autoimmune disease, pyoderma gangrenosum I answered all the patient's questions. To return to the wound healing center in 2 weeks or call sooner if the patient has any questions or concerns. Will RTC for continued wound healing and postoperative care s/p primary repair of split tear of peroneal brevis tendon, primary repair of anterior tibiofibular ligament (AITFL), and syndesmotic repair via tight rope right lower extremity.
--- NOTE | 2023-11-27 09:02 | WC ---
11/26/2023 RIGHT MEDIAL ANKLE
[2023-12-10 11:18] VITALS: RESP 18; TEMP 36.1
--- NOTE | 2023-12-10 12:50 | PN.PCM_ITS ---
History of Present Illness Date of Service: 12/10/23 Chief Complaint: Surgical wound dehiscence right leg History of Wound: Patient is a 38-year-old female who subsequently developed a surgical wound dehiscence of her right lateral lower extremity. She previously underwent surgery for primary repair of split tear of the peroneus brevis tendon, primary repair of anterior tibiofibular ligament (AITFL), and syndesmotic reduction via tight rope of the right lower extremity on 04/24/2023. Following removal of sutures she developed surgical wound dehiscence secondary to continued lower extremity swelling via chronic venous insufficiency. She did undergo debridement in office 06/05/2023 and Deidre was applied at this time with Tubigrip compression. She has worn compression stockings to manage lower extremity swelling prior to surgical intervention. Patient is also noted to have autoimmune disease and is managed by rheumatology with medication and did resume all medications 2 weeks post operative per rheumatology. She was referred to the wound care center for continued wound healing. She has been applying Deidre and dry sterile dressings daily. She denies N/V/F/chills. Denies further complaints. Subjective Subjective Patient is a 38-year-old female who presents to the wound care center today for f/u of a right lateral leg surgical dehiscence s/p repair of split tear of peroneal brevis tendon, AITFL ligament repair, and syndesmotic repair of the right ankle. She reports she is continuing to walk in the surgical shoe without difficulty. She is continuing to work with resistance bands at home and continuing home exercises to increase strength to lower extremity. She has continued to apply the topical tacrolimus ointment and is demonstrating continued improvement to medial leg ulceration. She states she is unsure of how her lateral leg site has reopened as of end of last week. She does state she has recently come off oral steroid treatment almost 2 weeks ago but is unsure if this played a role in flare up. She denies constitutional symptoms today. Denies further complaints today. Objective Data Objective Data Vital Signs: Vital Signs Temp Pulse Resp BP O2 Del Method 97 F L 95 18 140/78 H Room Air 12/10/23 11:18 11/26/23 11:22 12/10/23 11:18 11/26/23 11:22 12/10/23 11:18 Oxygen Delivery Method Room Air Physical Exam Const alert, oriented x3 and no apparent distress General Appearance: cooperative HEENT normocephalic Eyes General Eye: normal appearance of both eyes Neck General: normal visual inspection Lymph Lymphatic: no lymphadenopathy noted and no lymphedema noted Resp normal respiratory effort Cardio regular rate and regular rhythm Extremity normal capillary refill, no joint enlargement, no calf tenderness and no pedal edema Extremity Narrative: Vascular DP and PT pulses palpable bilateral. Capillary fill time less than 3 seconds to digits bilateral. Normal temperature gradient. There is hair growth present to lower extremity and digits. Dermatological: There is bilateral lower extremity edema secondary to chronic venous stasis with some hemosiderin deposition noted about the right lower extremity. The surgical dehiscence of the proximal incision on the right lower extremity with subsequent ulceration has reopened with fibrogranular layer. Surrounding skin does have resolving rubor secondary to chronic venous stasis in addition to autoimmune disease. No signs of infection. Distal aspect of the incision right lateral leg is a well-healed cicatrix. Anterior lateral leg demonstrates well-healed cicatrix. No signs of infection. Medial ankle wound secondary to autoimmune response with rubor noted with some tenderness to palpation. - Improving ulcerations with use of topical tacrolimus ointment On 08/28/2023 she demonstrated worsening of the medial and lateral ulcerative sites with deep purple violaceous border and hypertrophy of the wound bed and was started on oral steroid for possible pyoderma gangrenosum. She returned again on 09/03/2023 following oral steroid with noted improvement in tissue color surrounding the ulcerative sites and decreasing hypertrophy of the wound bed tissue. Pain also noted to be improving following oral steroid. Debridement was stopped. Musculoskeletal: Muscle strength 5 of 5 age-appropriate. No pain to palpation about the lateral leg of the right lower extremity. Skin no rashes or lesions noted, skin turgor normal and no jaundice Neuro moves all extremities Debridement Note Debridement Note Wound debrided: Right lower extremity x 2 Laterality: Right Wound Grade/Stage: Maciel stage I Type of Debridement: Excisional debridement Anesthesia Used: Cetacaine Depth: Down to and including healthy tissue and in the subcutaneous layer Percentage of wound debrided: 100 Instrument Used: 3mm curette Tissue Removed: Fibrous, devitalized subcutaneous, biofilm, slough Severity: Fat Layer Exposed Amount of bleeding with debridement: Mild Bleeding Controlled with: Silver Nitrate (Chemical cauterization performed to pyoderma gangrenosum sites) Patient tolerated procedure: Patient tolerated procedure well Post-Debridement Measurements and Additional Note: Post-Debridement Measurements/Treatment - Nurse 1 - General Ulcer Assessment Start: 11/26/23 11:19 Freq: Status: Active Protocol: LAURIE Activity Type Activity Date Activity User E-sign Co-sign Detail Recorded Client Recorded Date Recorded By Document 11/26/23 11:22 11/26/23 11:29 CP Document 12/10/23 11:18 [id number] 12/10/23 11:32 MS 11/26/23 12/10/23 11:22 11:18 WC - Today's Visit Information Type of service Follow-up Visit Follow-up Visit (Physician/EXECUTIVE DIRECTOR [employer] (Physician/EXECUTIVE DIRECTOR [employer] ) ) Arrival Mode Ambulatory Ambulatory Transfer Assistance None Accompanied by SELF Patient Identification Verified (Name & Yes Yes ) Patient Requires Transmission-Based No Precautions Safety Precautions NA Fall Prevention Vital Signs Temperature (97.8 F-99.1 F) 97.3 F L 97 F L Temperature Source Temporal Temporal Pulse Rate (60-100) 95 Pulse Location Monitor Monitor Respiratory Rate (12-18) 16 18 Respiratory rate source Observation Observation Oxygen Delivery Method Room Air Blood Pressure (90/60-120/80) 140/78 H Blood Pressure Mean (mm Hg) 98 Source Monitor Position Sitting Blood Pressure Location Left Forearm Comment BP MALFUNCTION History Since Last Visit- (Skip if this is Patient's initial visit) Have you changed medications since your Yes last visit? Any new allergies or adverse reactions No Had a fall/change in ADL's that may No increase risk of falls Signs or symptoms of abuse and/or No neglect since last visit Have you been in the hospital since your No last visit? Has dressing in place as prescribed Yes Yes Has compression in place as prescribed Yes Yes Has offloadiing in place as prescribed N/A Yes Experienced any changes in pain level or No Yes management Left Footwear Regular Shoe Right Footwear Regular Shoe Pain Scale: 0-10 Numeric Is Patient Pain Free? No Yes - Nurse 1 - General Ulcer Measurement Start: 11/26/23 11:19 Freq: Status: Active Protocol: Activity Type Activity Date Activity User E-sign Co-sign Detail Recorded Client Recorded Date Recorded By Document 11/26/23 11:22 06/06/24 11:29 CP Document 12/10/23 11:18 MS [id number] 12/10/23 11:32 MT 11/26/23 12/10/23 11:22 11:18 Wound Center Nurse 1 #2 RT MED ANKLE -Current Size (cm) - Length 0.3 0.1 -Current Size (cm) - Width 0.3 0.1 -Current Size (cm) - Depth 0.1 0.1 -Total Square Cm 0.09 0.01 -Date of Last Picture (Recall this 11/26/23 field) -Photo Taken Yes -Epithelialization None Present -Tunneling No -Undermining/Tunneling No -Exudate Amt Small -Exudate Type Serous -Wound Margin Flat & Intact Flat & Intact -Granulation Amt Large (67-100%) Medium (34-66%) -Granulation Quality [place] Pale,[place] -Slough/Fibrin No -Necrosis Amt Small (1-33%) -Necrotic Tissue Type Adherent Slough -Structure Exposed N/A -Texture (Meghan-wound Skin Appearance) No Abnormality Assessed -Moisture (Meghan-wound Skin Appearance) No Abnormality Assessed -Color (Meghan-wound Skin Appearance) No Abnormality Assessed -Temperature (Meghan-wound Skin No Abnormality Appearance) (Pt Warm) -Tenderness on Palpation (Meghan-wound No Skin Appearance) -Ulcer Cleansing Rinsed/ Irrigated with Saline -Foul Odor after Cleansing No -Anesthetic Used 5% Lidocaine 5% Lidocaine Gel Gel #1 RT LAT ANKLE CLUSTER -Current Size (cm) - Length 1.9 -Current Size (cm) - Width 1.0 -Current Size (cm) - Depth 0.1 -Total Square Cm 1.90 -Exudate Amt Medium -Exudate Type Serosanguineous -Wound Margin Flat & Intact -Granulation Amt Medium (34-66%) -Granulation Quality Pale,[place] -Necrosis Amt Small (1-33%) -Necrotic Tissue Type Adherent Slough -Texture (Meghan-wound Skin Appearance) Assessed -Moisture (Meghan-wound Skin Appearance) Assessed -Color (Meghna-wound Skin Appearance) Assessed -Temperature (Meghan-wound Skin No Abnormality Appearance) (Pt Warm) -Tenderness on Palpation (Meghan-wound No Skin Appearance) -Ulcer Cleansing Soap and Water -Anesthetic Used 5% Lidocaine Gel Right Calf (cm) 43 Right Ankle (cm) 29 WC - Nurse 2 - General Ulcer CM Notes Start: 11/26/23 11:19 Freq: Status: Active Protocol: Activity Type Activity Date Activity User E-sign Co-sign Detail Recorded Client Recorded Date Recorded By Document 11/26/23 11:48 [facility] 11/26/23 11:51 BMF Document 12/10/23 11:43 [facility] 12/10/23 11:51 BM Edit Result 12/10/23 11:43 [facility] (1) [id number] 12/10/23 12:09 [facility] (1) #2 RT MED ANKLE - Debridement - Subq, 1st 20sq cm Yes => No 11/26/23 12/10/23 11:48 11:43 Wound Center Nurse 2 #2 RT MED ANKLE -Time 11:44 -Correct Patient Yes -Correct Side, Site, Position Yes -Correct Procedure Yes -Procedure Performed Yes -Type of Procedure Debridement -Clinical Debridement Subcutaneous -Tissue Removed Subcutaneous -Post Debridement (cm) - Length 0.3 0.3 -Post Debridement (cm) - Width 0.3 0.3 -Post Debridement (cm) - Depth 0.1 0.1 -Total Square (Post) (cm) 0.09 0.09 -Area of Debridement (cm) - Length 0.3 0.3 -Area of Debridement (cm) - Width 0.3 0.3 -Total Square (Area) (cm) 0.09 0.09 -Tunneling No -Undermining/Tunneling No -Circular Undermining No -Wound/Ulcer Outcome Not Healed Not Healed -Ulcer Cleansing Rinsed/ Irrigated with Saline -Foul Odor after Cleansing No -Bioengineered Tissue No -Bleeding Controlled with NA Silver Nitrate -Treatment Response Procedure Tolerated Well -Debridement - Subq, 1st 20sq cm No #1 RT LAT ANKLE CLUSTER -Time 11:43 -Correct Patient Yes -Correct Side, Site, Position Yes -Correct Procedure Yes -Procedure Performed Yes -Type of Procedure Debridement -Clinical Debridement Subcutaneous -Tissue Removed Subcutaneous -Post Debridement (cm) - Length 2 -Post Debridement (cm) - Width 1.6 -Post Debridement (cm) - Depth 0.1 -Total Square (Post) (cm) 3.2 -Area of Debridement (cm) - Length 2 -Area of Debridement (cm) - Width 1.6 -Total Square (Area) (cm) 3.2 -Tunneling No -Undermining/Tunneling No -Circular Undermining No -Wound/Ulcer Outcome Not Healed -Ulcer Cleansing Rinsed/ Irrigated with Saline -Foul Odor after Cleansing No -Bioengineered Tissue No -Bleeding Controlled with Silver Nitrate -Treatment Response Procedure Tolerated Well -Debridement - Subq, 1st 20sq cm Yes Pain Scale: 0-10 Numeric Is Patient Pain Free? Yes Yes - Nurse 3 - General Ulcer D/C NN Start: 11/26/23 11:19 Freq: Status: Active Protocol: Activity Type Activity Date Activity User E-sign Co-sign Detail Recorded Client Recorded Date Recorded By Document 11/26/23 11:56 wound center 11/26/23 11:58 KW Document 12/10/23 12:04 DL 10.10.25.7 12/10/23 12:05 DL Edit Result 12/10/23 12:04 DL (1) 10.10.25.7 12/10/23 12:07 DL (1) #2 RT MED ANKLE - Wound Comment(s) => Pad and protect today in clinic. Pt to resume orders at home. 11/26/23 12/10/23 11:56 12:04 Wound Care Center Nurse 3 #2 RT MED ANKLE -Ulcer Cleansing Rinsed/ Irrigated with Saline -Foul Odor after Cleansing No -Primary Dressing Applied Aquacel Extra, NonAdherent NonAdherent Contact Layer Contact Layer -Primary Dressing Covered/Secured with Dry Gauze & Dry Gauze & Roll Gauze, Roll Gauze, Secured with Secured with Tape Tape -Aquacel Extra 1 -Wound Comment(s) Pad and protect today in clinic. Pt to resume orders at home. #1 RT LAT ANKLE CLUSTER -Ulcer Cleansing Rinsed/ Irrigated with Saline -Foul Odor after Cleansing No -Primary Dressing Applied NonAdherent Contact Layer -Primary Dressing Covered/Secured with Dry Gauze & Roll Gauze, Secured with Tape Right -Tubular Bandage Single Layer -Size of Tubigrip Used Size D -Size D ($) 1 -Other tubigrip Treatment Response Procedure Tolerated Well Pain Scale: 0-10 Numeric Is Patient Pain Free? Yes Yes - Visit Discharge Discharge Condition Stable Stable Ambulatory Status Ambulatory Ambulatory, Walker Transportation Private Auto Medication Reconcilliation completed & No provided to patient/care provider Clinical Summary of Care Provided Yes Assessment/Plan Assessment/Plan (1) Pyoderma gangrenosum: CODE(S): L88 - Pyoderma gangrenosum (2) Non-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: CODE(S): L97.312 - Non-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 (3) Non-pressure chronic ulcer of right calf with fat layer exposed: CODE(S): L97.212 - Non-pressure chronic ulcer of right calf with fat layer exposed (4) Venous insufficiency (chronic) (peripheral): CODE(S): I87.2 - Venous insufficiency (chronic) (peripheral) (5) Surgical wound dehiscence: CODE(S): T81.31XA - Disruption of external operation (surgical) wound, not elsewhere classified, initial encounter QUALIFIERS: Encounter type: subsequent encounter Qualified Code(s): T81.31XD - Disruption of external operation (surgical) wound, not elsewhere classified, subsequent encounter (6) Injury of peroneal tendon of right foot: CODE(S): S86.301A - Unspecified injury of muscle(s) and tendon(s) of peroneal muscle group at lower leg level, right leg, initial encounter QUALIFIERS: Encounter type: subsequent encounter Qualified Code(s): S86.301D - Unspecified injury of muscle(s) and tendon(s) of peroneal muscle group at lower leg level, right leg, subsequent encounter (7) Rupture of ligament of right ankle: CODE(S): S93.401A - Sprain of unspecified ligament of right ankle, initial encounter (8) Syndesmotic disruption of right ankle: CODE(S): S93.431A - Sprain of tibiofibular ligament of right ankle, initial encounter QUALIFIERS: Encounter type: subsequent encounter Qualified Code(s): S93.431D - Sprain of tibiofibular ligament of right ankle, subsequent encounter (9) Peroneal tendinitis, right leg: CODE(S): M76.71 - Peroneal tendinitis, right leg (10) Pain in right lower leg: CODE(S): M79.661 - Pain in right lower leg PLAN: Plan Patient seen and evaluated She presents today postoperatively s/p primary repair of split tear of peroneal brevis tendon, primary repair of anterior tibiofibular ligament (AITFL), and syndesmotic reduction via tight rope DOS 04/24/2023, POD #230 Currently 8 months out of surgery. States pain to her right lateral ankle is continuing to improve at surgical site but cracking still operator about ulceration sites, she is continuing weight bearing to the Right foot. She reports incision did begin to open up on 06/02/2023. Dehiscence occurred 2 weeks following the removal of her sutures. Denies calf pain today. Negative Robertson sign & Negative Ro's sign. States no pain along peroneal tendon or to eversion of the foot or at anterior lateral ankle overlying the ATIFL. Does have tenderness to the medial and lateral ankle ulceration secondary pyoderma gangrenosum. 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 She has remained protective weightbearing to the right lower extremity with surgical shoe. States the stiffness in the ankle has improved through continued use of therapy bands and home exercises. Discussed transition to supportive shoe gear again today once ulcerations have healed. Encouraged continued ambulation in supportive shoe gear vs surgical shoe. Currently full weightbearing in surgical shoe without difficulty. Dressings were removed today and site was inspected. Anterior lateral ankle demonstrates well-healed cicatrix. Lateral ankle demonstrates well-healed cicatrix distally and proximally ulceration, which has reopened secondary to pyroderma gangrenosum. Medial ankle wound secondary to pyroderma gangrenosum. On 08/28/2023 she demonstrated worsening of the medial and lateral ulcerative sites with deep purple violaceous border and hypertrophy of the wound bed and was started on oral steroid for possible pyoderma gangrenosum. She returned again on 09/03/2023 following oral steroid with noted improvement in tissue color surrounding the ulcerative sites and decreasing hypertrophy of the wound bed tissue. Pain also noted to be improving following oral steroid at that time. Debridement was stopped and oral steroid was started continued for additional week following addition of topical Tacrolimus with plan to monitor response. Patient is stating the pain is improved following the use of the steroid and the steroid course was extended as I do feel she has pyoderma gangrenosum. 09/10/2023 she was prescribed topical tacrolimus 0.1% to apply the wound bed daily. Will continue the topical steroid which is working and she is demonstrating healing of ulcerative sites, will continue to monitor. Ulceration did undergo debridement as noted in the clinical panel above and underwent silver nitrate application. She tolerated this well. Ulceration lateral leg remains has reopened as of 12/03/23 and measures 2.0cm x 1.6 cm x 0.1 cm. Medial ankle ulceration measures 0.3 cm x 0.3 cm x 0.1 cm. Her pyoderma gangrenosum is responding well to the topical tacrolimus, but I do feel she would benefit from oral dapsone treatment and dermatology referral. Will continue applying topical tacrolimus 0.1% cream daily. Tubigrip compression stocking applied to the lower extremity. She was also encouraged to transition to full weightbearing to the right lower extremity in supportive shoe gear and elevate lower extremity at all times of rest for edema control. Ulceration to the lateral leg has reopened versus previous visit and medial leg has remained the same size. Discussed referral to dermatology today for additional treatments. She is discussing with Rheumatology and Solvent Plant Treater utilizing new medications once wound is healed. Patient is currently on immunosuppressant agents for autoimmune disease Discussed adequate protein intake to aid in wound healing. She will continue Oscar supplementation. Discussed continuing range of motion exercises, working with resistance bands to increase lower extremity strength. Discussed as wound nears closure physical therapy may be implemented to improve strength and motion to the right lower extremity. Discussed transition to supportive shoe gear to the right lower extremity. Her gait is noted to be much improved versus prior to surgical intervention. Discussed once wound has healed we will look to begin physical therapy to increase strength and flexibility of the right lower extremity. At this time overall prognosis is good but complicated due to surgical dehiscence/pyoderma gangrenosum, will continue topical tacrolimus. Referral to Dermatology. Venous studies were performed 07/09/2023, no evidence of DVT. Valvular competence appears intact within the proximal deep venous system bilaterally. Great saphenous vein appears bilaterally patent and compressible segmentally. Saphenofemoral junctions are bilaterally competent. There is segmental valvular incompetence noted in the great saphenous veins bilaterally small saphenous veins patent and competent on the right and patent and incompetent on the left. There are several incompetent accessory saphenous veins and tributaries in the right lower extremity and 2 accessory saphenous veins of the left calf are incompetent. Discussed signs and symptoms of infection. Discussed with her if she notices increasing redness about the ulcerative site that moves up the leg, purulent drainage from the ulcerative site, increasing foul odor from the ulcerative site, or if she develops fever greater than 101 degree, develops nausea, v omiting, chills, these are signs of a progressing infection and she should report to the ED for IV antibiotics. She voices understanding of this today. The following work up and care recommendations were made: Dressing: Tacrolimus ointment, Adaptic, Dry sterile dressing. Change dressing daily Wash: Soap and water Tissue growth optimization: Topical tacrolimus Offload: To transition to full weightbearing to the right lower extremity in supportive shoe gear. foot. Patient was previously in CAM boot until surgical wound dehiscence. Transitioned back to surgical shoe to allow for decreased pressure at the wound site on the leg. Vascular: DP and PT pulses palpable with adequate capillary fill time to digits. Edema: Patient does have chronic venous insufficiency with bilateral lower extremity edema. Tubigrip compression is applied. Once wound is closed she will return to her prescription compression stockings. Infection: No signs of infection. Pain: May take [id number] Tylenol for discomfort Host factors: Chronic venous insufficiency, autoimmune disease, pyoderma gangrenosum I answered all the patient's questions. To return to the wound healing center in 1 week or call sooner if the patient has any questions or concerns. Will RTC for continued wound healing and postoperative care s/p primary repair of split tear of peroneal brevis tendon, primary repair of anterior tibiofibular ligament (AITFL), and syndesmotic repair via tight rope right lower extremity.
[2023-12-17 11:08] VITALS: BP 158/70; PULSE 90; RESP 18; TEMP 36.2
--- NOTE | 2023-12-17 13:15 | PCM.WC.PN ---
History of Present Illness Date of Service: 12/17/23 Chief Complaint: Surgical wound dehiscence right leg History of Wound: Patient is a 38-year-old female who subsequently developed a surgical wound dehiscence of her right lateral lower extremity. She previously underwent surgery for primary repair of split tear of the peroneus brevis tendon, primary repair of anterior tibiofibular ligament (AITFL), and syndesmotic reduction via tight rope of the right lower extremity on 04/24/2023. Following removal of sutures she developed surgical wound dehiscence secondary to continued lower extremity swelling via chronic venous insufficiency. She did undergo debridement in office 06/05/2023 and Deidre was applied at this time with Tubigrip compression. She has worn compression stockings to manage lower extremity swelling prior to surgical intervention. Patient is also noted to have autoimmune disease and is managed by rheumatology with medication and did resume all medications 2 weeks post operative per rheumatology. She was referred to the wound care center for continued wound healing. She has been applying Deidre and dry sterile dressings daily. She denies N/V/F/chills. Denies further complaints. Subjective Subjective Patient is a 38-year-old female who presents to the wound care center today for f/u of a right lateral leg surgical dehiscence s/p repair of split tear of peroneal brevis tendon, AITFL ligament repair, and syndesmotic repair of the right ankle. She reports she is continuing to walk in the surgical shoe without difficulty. She is continuing to work with resistance bands at home and continuing home exercises to increase strength to lower extremity. She has continued to apply the topical tacrolimus ointment and is demonstrating but her progress has stalled at this time. She had reopened her lateral leg site 2 weeks ago. At that time she did state she recently came off oral steroid treatment almost 2 weeks before reopening. She denies constitutional symptoms today. Denies further complaints today. Objective Data Objective Data Vital Signs: Vital Signs Temp Pulse Resp BP O2 Del Method 97.2 F L 90 18 158/70 H Room Air 12/17/23 11:08 12/17/23 11:08 12/17/23 11:08 12/17/23 11:08 12/10/23 11:18 Oxygen Delivery Method Room Air Physical Exam Const alert, oriented x3 and no apparent distress General Appearance: cooperative HEENT normocephalic Eyes General Eye: normal appearance of both eyes Neck General: normal visual inspection Lymph Lymphatic: no lymphadenopathy noted and no lymphedema noted Resp normal respiratory effort Cardio regular rate and regular rhythm Extremity normal capillary refill, no joint enlargement, no calf tenderness and no pedal edema Extremity Narrative: Vascular DP and PT pulses palpable bilateral. Capillary fill time less than 3 seconds to digits bilateral. Normal temperature gradient. There is hair growth present to lower extremity and digits. Dermatological: There is bilateral lower extremity edema secondary to chronic venous stasis with some hemosiderin deposition noted about the right lower extremity. The surgical dehiscence of the proximal incision on the right lower extremity with subsequent ulceration had reopened with fibrogranular layer. Surrounding skin does have resolving rubor secondary to chronic venous stasis in addition to autoimmune disease. No signs of infection. Distal aspect of the incision right lateral leg is a well-healed cicatrix. Anterior lateral leg demonstrates well-healed cicatrix. No signs of infection. Medial ankle wound secondary to autoimmune response with rubor noted with some tenderness to palpation. - Improving ulcerations with use of topical tacrolimus ointment On 08/28/2023 she demonstrated worsening of the medial and lateral ulcerative sites with deep purple violaceous border and hypertrophy of the wound bed and was started on oral steroid for possible pyoderma gangrenosum. She returned again on 09/03/2023 following oral steroid with noted improvement in tissue color surrounding the ulcerative sites and decreasing hypertrophy of the wound bed tissue. Pain also noted to be improving following oral steroid. Debridement was stopped. Musculoskeletal: Muscle strength 5 of 5 age-appropriate. No pain to palpation about the lateral leg of the right lower extremity. Skin no rashes or lesions noted, skin turgor normal and no jaundice Neuro moves all extremities Debridement Note Debridement Note No debridement was completed: No debridement was completed today Post-Debridement Measurements and Additional Note: Post-Debridement Measurements/Treatment WC - Nurse 1 - General Ulcer Assessment Start: 11/26/23 11:19 Freq: Status: Active Protocol: LOWEXT Activity Type Activity Date Activity User E-sign Co-sign Detail Recorded Client Recorded Date Recorded By Document 11/26/23 11:22 CP 11/26/23 11:29 CP Document 12/10/23 [id number] 12/10/23 11:32 MT Document 12/17/23 11:08 DL 10.10.25.7 12/17/23 11:18 DL 11/26/23 12/10/23 12/17/23 11:22 11:18 11:08 - Today's Visit Information Type of service Follow-up Visit Follow-up Visit Follow-up Visit (Physician/MENTAL TESTER (Physician/MENTAL TESTER (Physician/MENTAL TESTER ) ) ) Arrival Mode Ambulatory Ambulatory Ambulatory, Walker Transfer Assistance None None Accompanied by SELF Patient Identification Verified (Name & Yes Yes Yes ) Patient Requires Transmission-Based No No Precautions Safety Precautions NA Fall Prevention Vital Signs Temperature (97.8 F-99.1 F) 97.3 F L 97 F L 97.2 F L Temperature Source Temporal Temporal Temporal Pulse Rate (60-100) 95 90 Pulse Location Monitor Monitor Monitor Respiratory Rate (12-18) 16 18 18 Respiratory rate source Observation Observation Observation Oxygen Delivery Method Room Air Blood Pressure (90/60-120/80) 140/78 H 158/70 H Blood Pressure Mean (mm Hg) 98 99 Source Monitor Monitor Position Sitting Blood Pressure Location Left Forearm Comment BP MALFUNCTION History Since Last Visit- (Skip if this is Patient's initial visit) Have you changed medications since your Yes No last visit? Any new allergies or adverse reactions No No Had a fall/change in ADL's that may No No increase risk of falls Signs or symptoms of abuse and/or No No neglect since last visit Have you been in the hospital since your No No last visit? Has dressing in place as prescribed Yes Yes Yes Has compression in place as prescribed Yes Yes Yes Has offloadiing in place as prescribed N/A Yes Yes Experienced any changes in pain level or No Yes No management Left Footwear Regular Shoe Right Footwear Regular Shoe Surgical Shoe with pressure relief insole Pain Scale: 0-10 Numeric Is Patient Pain Free? No Yes Yes - Nurse 1 - General Ulcer Measurement Start: 11/26/23 11:19 Freq: Status: Active Protocol: Activity Type Activity Date Activity User E-sign Co-sign Detail Recorded Client Recorded Date Recorded By Document 11/26/23 11:22 CP 11/26/23 11:29 CP Document 12/10/23 11:18 MT [id number] 12/10/23 11:32 MT Document 12/17/23 11:08 DL [email or web address] 12/17/23 11:18 DL 11/26/23 12/10/23 12/17/23 11:22 11:18 11:08 Wound Center Nurse 1 #2 RT MED ANKLE -Current Size (cm) - Length 0.3 0.1 0.2 -Current Size (cm) - Width 0.3 0.1 0.2 -Current Size (cm) - Depth 0.1 0.1 0.1 -Total Square Cm 0.09 0.01 0.04 -Date of Last Picture (Recall this 11/26/23 field) -Photo Taken Yes -Epithelialization None Present -Tunneling No -Undermining/Tunneling No -Exudate Amt Small Small -Exudate Type Serous Serosanguineous -Wound Margin Flat & Intact Flat & Intact Distinct, Outline Attached -Granulation Amt Large (67-100%) Medium (34-66%) Small (1-33%) -Granulation Quality [place] Pale,Ju[place] -Slough/Fibrin No -Necrosis Amt Small (1-33%) Small (1-33%) -Necrotic Tissue Type Adherent Slough Adherent Slough -Structure Exposed N/A N/A -Texture (Meghan-wound Skin Appearance) No Abnormality Assessed Localized Edema ,Scarring -Moisture (Meghan-wound Skin Appearance) No Abnormality Assessed No Abnormality -Color (Meghan-wound Skin Appearance) No Abnormality Assessed No Abnormality, Erythema -Temperature (Meghan-wound Skin No Abnormality No Abnormality Appearance) (Pt Warm) (Pt Warm) -Tenderness on Palpation (Meghan-wound No No Skin Appearance) -Ulcer Cleansing Rinsed/ Soap and Water Irrigated with Saline -Foul Odor after Cleansing No No -Anesthetic Used 5% Lidocaine 5% Lidocaine 5% Lidocaine Gel Gel Gel #1 RT LAT ANKLE CLUSTER -Current Size (cm) - Length 1.9 1.8 -Current Size (cm) - Width 1.0 0.9 -Current Size (cm) - Depth 0.1 0.1 -Total Square Cm 1.90 1.62 -Exudate Amt Medium Small -Exudate Type Serosanguineous Serosanguineous -Wound Margin Flat & Intact Distinct, Outline Attached -Granulation Amt Medium (34-66%) None Present (0 %) -Granulation Quality Pale,[place] -Necrosis Amt Small (1-33%) Large (67-100%) -Necrotic Tissue Type Adherent Slough Adherent Slough -Structure Exposed N/A -Texture (Meghan-wound Skin Appearance) Assessed Scarring -Moisture (Meghan-wound Skin Appearance) Assessed No Abnormality -Color (Meghan-wound Skin Appearance) Assessed Erythema -Temperature (Meghan-wound Skin No Abnormality No Abnormality Appearance) (Pt Warm) (Pt Warm) -Tenderness on Palpation (Meghan-wound No Skin Appearance) -Ulcer Cleansing Soap and Water Soap and Water -Foul Odor after Cleansing No -Anesthetic Used 5% Lidocaine 5% Lidocaine Gel Gel Right Calf (cm) 43 47.5 Right Ankle (cm) 29 30 WC - Nurse 2 - General Ulcer CM Notes Start: 11/26/23 11:19 Freq: Status: Active Protocol: Activity Type Activity Date Activity User E-sign Co-sign Detail Recorded Client Recorded Date Recorded By Document 11/26/23 11:48 BMF 11/26/23 11:51 BMF Document 12/10/23 11:43 BMF 12/10/23 11:51 BMF Edit Result 12/10/23 11:43 BMF (1) [id number] 12/10/23 12:09 BMF Document 12/17/23 11:39 BMF [email or web address] 12/17/23 12:01 BMF (1) #2 RT MED ANKLE - Debridement - Subq, 1st 20sq cm Yes => No 11/26/23 12/10/23 12/17/23 11:48 11:43 11:39 Wound Center Nurse 2 #2 RT MED ANKLE -Time 11:44 -Correct Patient Yes -Correct Side, Site, Position Yes -Correct Procedure Yes -Procedure Performed Yes -Type of Procedure Debridement -Clinical Debridement Subcutaneous -Tissue Removed Subcutaneous -Post Debridement (cm) - Length 0.3 0.3 0.3 -Post Debridement (cm) - Width 0.3 0.3 0.3 -Post Debridement (cm) - Depth 0.1 0.1 0.1 -Total Square (Post) (cm) 0.09 0.09 0.09 -Area of Debridement (cm) - Length 0.3 0.3 0.3 -Area of Debridement (cm) - Width 0.3 0.3 0.3 -Total Square (Area) (cm) 0.09 0.09 0.09 -Tunneling No No -Undermining/Tunneling No No -Circular Undermining No No -Wound/Ulcer Outcome Not Healed Not Healed Not Healed -Ulcer Cleansing Rinsed/ Irrigated with Saline -Foul Odor after Cleansing No -Bioengineered Tissue No -Bleeding Controlled with NA Silver Nitrate NA -Treatment Response Procedure Tolerated Well -Debridement - Subq, 1st 20sq cm No #1 RT LAT ANKLE CLUSTER -Time 11:43 -Correct Patient Yes -Correct Side, Site, Position Yes -Correct Procedure Yes -Procedure Performed Yes -Type of Procedure Debridement -Clinical Debridement Subcutaneous -Tissue Removed Subcutaneous -Post Debridement (cm) - Length 2 1.8 -Post Debridement (cm) - Width 1.6 1.8 -Post Debridement (cm) - Depth 0.1 0.1 -Total Square (Post) (cm) 3.2 3.24 -Area of Debridement (cm) - Length 2 1.8 -Area of Debridement (cm) - Width 1.6 1.8 -Total Square (Area) (cm) 3.2 3.24 -Tunneling No -Undermining/Tunneling No -Circular Undermining No -Wound/Ulcer Outcome Not Healed Not Healed -Ulcer Cleansing Rinsed/ Irrigated with Saline -Foul Odor after Cleansing No -Bioengineered Tissue No -Bleeding Controlled with Silver Nitrate NA -Treatment Response Procedure Tolerated Well -Debridement - Subq, 1st 20sq cm Yes Pain Scale: 0-10 Numeric Is Patient Pain Free? Yes Yes Yes WC - Nurse 3 - General Ulcer D/C NN Start: 11/26/23 11:19 Freq: Status: Active Protocol: Activity Type Activity Date Activity User E-sign Co-sign Detail Recorded Client Recorded Date Recorded By Document 11/26/23 11:56 KW wound center 11/26/23 11:58 KW Document 12/10/23 12:04 DL 10. 12/10/23 12:05 DL Edit Result 12/10/23 12:04 DL (1) 10.10.7 12/10/23 12:07 DL (1) #2 RT MED ANKLE - Wound Comment(s) => Pad and protect today in clinic. Pt to resume orders at home. 11/26/23 12/10/23 11:56 12:04 Wound Care Center Nurse 3 #2 RT MED ANKLE -Ulcer Cleansing Rinsed/ Irrigated with Saline -Foul Odor after Cleansing No -Primary Dressing Applied Aquacel Extra, NonAdherent NonAdherent Contact Layer Contact Layer -Primary Dressing Covered/Secured with Dry Gauze & Dry Gauze & Roll Gauze, Roll Gauze, Secured with Secured with Tape Tape -Aquacel Extra 1 -Wound Comment(s) Pad and protect today in clinic. Pt to resume orders at home. #1 RT LAT ANKLE CLUSTER -Ulcer Cleansing Rinsed/ Irrigated with Saline -Foul Odor after Cleansing No -Primary Dressing Applied NonAdherent Contact Layer -Primary Dressing Covered/Secured with Dry Gauze & Roll Gauze, Secured with Tape Right -Tubular Bandage Single Layer -Size of Tubigrip Used Size D -Size D ($) 1 -Other tubigrip Treatment Response Procedure Tolerated Well Pain Scale: 0-10 Numeric Is Patient Pain Free? Yes Yes WC - Visit Discharge Discharge Condition Stable Stable Ambulatory Status Ambulatory Ambulatory, Walker Transportation Private Auto Medication Reconcilliation completed & No provided to patient/care provider Clinical Summary of Care Provided Yes Assessment/Plan Assessment/Plan (1) Pyoderma gangrenosum: CODE(S): L88 - Pyoderma gangrenosum (2) Non-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: CODE(S): L97.312 - Non-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 (3) Non-pressure chronic ulcer of right calf with fat layer exposed: CODE(S): L97.212 - Non-pressure chronic ulcer of right calf with fat layer exposed (4) Venous insufficiency (chronic) (peripheral): CODE(S): I87.2 - Venous insufficiency (chronic) (peripheral) (5) Surgical wound dehiscence: CODE(S): T81.31XA - Disruption of external operation (surgical) wound, not elsewhere classified, initial encounter QUALIFIERS: Encounter type: subsequent encounter Qualified Code(s): T81.31XD - Disruption of external operation (surgical) wound, not elsewhere classified, subsequent encounter (6) Injury of peroneal tendon of right foot: CODE(S): S86.301A - Unspecified injury of muscle(s) and tendon(s) of peroneal muscle group at lower leg level, right leg, initial encounter QUALIFIERS: Encounter type: subsequent encounter Qualified Code(s): S86.301D - Unspecified injury of muscle(s) and tendon(s) of peroneal muscle group at lower leg level, right leg, subsequent encounter (7) Rupture of ligament of right ankle: CODE(S): S93.401A - Sprain of unspecified ligament of right ankle, initial encounter (8) Syndesmotic disruption of right ankle: CODE(S): S93.431A - Sprain of tibiofibular ligament of right ankle, initial encounter QUALIFIERS: Encounter type: subsequent encounter Qualified Code(s): S93.431D - Sprain of tibiofibular ligament of right ankle, subsequent encounter (9) Peroneal tendinitis, right leg: CODE(S): M76.71 - Peroneal tendinitis, right leg (10) Pain in right lower leg: CODE(S): M79.661 - Pain in right lower leg PLAN: Plan Patient seen and evaluated She presents today postoperatively s/p primary repair of split tear of peroneal brevis tendon, primary repair of anterior tibiofibular ligament (AITFL), and syndesmotic reduction via tight rope DOS 04/24/2023, POD #237 Currently 8 months, 1 week out of surgery. States pain to her right lateral ankle is continuing to improve at surgical site but finisher card tender about ulceration sites, she is continuing weight bearing to the Right foot. She reports incision did begin to open up on 06/02/2023. Dehiscence occurred 2 weeks following the removal of her sutures. Denies calf pain today. Negative Robertson sign & Negative Ro's sign. States no pain along peroneal tendon or to eversion of the foot or at anterior lateral ankle overlying the ATIFL. Does have tenderness to the medial and lateral ankle ulceration secondary pyoderma gangrenosum. 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 She does have some occasional discomfort with the pyoderma. She has remained protective weightbearing to the right lower extremity with surgical shoe. Stiffness in the ankle has improved through continued use of therapy bands and home exercises. Discussed transition to supportive shoe gear once ulcerations have healed. Encouraged continued ambulation in supportive shoe gear vs surgical shoe. Currently full weightbearing in surgical shoe without difficulty. Dressings were removed today and site was inspected. Anterior lateral ankle demonstrates well-healed cicatrix. Lateral ankle demonstrates well-healed cicatrix distally and proximally ulceration, which has reopened secondary to pyroderma gangrenosum. Medial ankle wound secondary to pyroderma gangrenosum. On 08/28/2023 she demonstrated worsening of the medial and lateral ulcerative sites with deep purple violaceous border and hypertrophy of the wound bed and was started on oral steroid for possible pyoderma gangrenosum. She returned again on 09/03/2023 following oral steroid with noted improvement in tissue color surrounding the ulcerative sites and decreasing hypertrophy of the wound bed tissue. Pain also noted to be improving following oral steroid at that time. Debridement was stopped and oral steroid was started continued for additional week following addition of topical Tacrolimus with plan to monitor response. Patient is stating the pain is improved following the use of the steroid and the steroid course was extended as I do feel she has pyoderma gangrenosum. 09/10/2023 she was prescribed topical tacrolimus 0.1% to apply the wound bed daily. Will continue the topical steroid which is working and she is demonstrating healing of ulcerative sites, will continue to monitor. Ulceration did undergo debridement as noted in the clinical panel above and underwent silver nitrate application. She tolerated this well. Ulceration lateral leg remains has reopened as of 12/03/23 and measures 1.8cm x 1.8 cm x 0.1 cm. Medial ankle ulceration measures 0.3 cm x 0.3 cm x 0.1 cm. Her pyoderma gangrenosum is responding well to the topical tacrolimus, but I do feel she would benefit from oral dapsone treatment and dermatology referral. Will continue applying topical tacrolimus 0.1% cream daily. Tubigrip compression stocking applied to the lower extremity. She was also encouraged to transition to full weightbearing to the right lower extremity in supportive shoe gear and elevate lower extremity at all times of rest for edema control. Ulceration to the lateral leg has reopened versus previous visit and medial leg has remained the same size. Discussed referral to dermatology on 12/10/23 for additional treatments. She has first appointment with dermatology on 12/29/2023. She is discussing with Rheumatology and General Lithographic Worker utilizing new medications once wound is healed. Patient is currently on immunosuppressant agents for autoimmune disease Discussed adequate protein intake to aid in wound healing. She will continue Oscar supplementation. Discussed continuing range of motion exercises, working with resistance bands to increase lower extremity strength. Discussed as wound nears closure physical therapy may be implemented to improve strength and motion to the right lower extremity. Discussed transition to supportive shoe gear to the right lower extremity. Her gait is noted to be much improved versus prior to surgical intervention. Discussed once wound has healed we will look to begin physical therapy to increase strength and flexibility of the right lower extremity. At this time overall prognosis is good but complicated due to surgical dehiscence/pyoderma gangrenosum, will continue topical tacrolimus. Referral to Dermatology. Venous studies were performed 07/09/2023, no evidence of DVT. Valvular competence appears intact within the proximal deep venous system bilaterally. Great saphenous vein appears bilaterally patent and compressible segmentally. Saphenofemoral junctions are bilaterally competent. There is segmental valvular incompetence noted in the great saphenous veins bilaterally small saphenous veins patent and competent on the right and patent and incompetent on the left. There are several incompetent accessory saphenous veins and tributaries in the right lower extremity and 2 accessory saphenous veins of the left calf are incompetent. Discussed signs and symptoms of infection. Discussed with her if she notices increasing redness about the ulcerative site that moves up the leg, purulent drainage from the ulcerative site, increasing foul odor from the ulcerative site, or if she develops fever greater than 101 degree, develops nausea, vomiting, chills, these are signs of a progressing infection and she should report to the ED for IV antibiotics. She voices understanding of this today. The following work up and care recommendations were made: Dressing: Tacrolimus ointment, Adaptic, Dry sterile dressing. Change dressing daily Wash: Soap and water Tissue growth optimization: Topical tacrolimus Offload: To transition to full weightbearing to the right lower extremity in supportive shoe gear. foot. Patient was previously in CAM boot until surgical wound dehiscence. Transitioned back to surgical shoe to allow for decreased pressure at the wound site on the leg. Vascular: DP and PT pulses palpable with adequate capillary fill time to digits. Edema: Patient does have chronic venous insufficiency with bilateral lower extremity edema. Tubigrip compression is applied. Once wound is closed she will return to her prescription compression stockings. Infection: No signs of infection. Pain: May take [id number] Tylenol for discomfort Host factors: Chronic venous insufficiency, autoimmune disease, pyoderma gangrenosum I answered all the patient's questions. To return to the wound healing center in 2 weeks or call sooner if the patient has any questions or concerns. Will RTC for continued wound healing and postoperative care s/p primary repair of split tear of peroneal brevis tendon, primary repair of anterior tibiofibular ligament (AITFL), and syndesmotic repair via tight rope right lower extremity.
== END 2023-12-20 23:59 | disposition home or self-care (01) ==
LOC: WC 11:15
PROVIDERS: PCP Internal Medicine; Referring Provider Student in an Organized Health Care Education/Training Program; Visit Provider Student in an Organized Health Care Education/Training Program
DX: L97.812 Non-pressure chronic ulcer of other part of right lower leg with fat layer exposed (principal); L88 Pyoderma gangrenosum; T81.31XA Disruption of external operation (surgical) wound, not elsewhere classified, initial encounter; Y83.8 Other surgical procedures as the cause of abnormal reaction of the patient, or of later complication, without mention of misadventure at the time of the procedure; I87.2 Venous insufficiency (chronic) (peripheral); M35.9 Systemic involvement of connective tissue, unspecified; R60.0 Localized edema; Z79.82 Long term (current) use of aspirin; Z79.899 Other long term (current) drug therapy
CPT/HCPCS: 11042; 99213; G0463

== ENCOUNTER → 2023-12-29 | Outpatient (CLI) | payer MEDICARE, MEDICAID, SELFPAY | END | disposition home or self-care (01) | LOC: LABSPEC 12:23 | PROVIDERS: PCP Internal Medicine; Referring Provider Dermatology; Visit Provider Dermatology | DX: D48.5 Neoplasm of uncertain behavior of skin (principal); L50.8 Other urticaria | CPT/HCPCS: 87015; 87070; 87075; 87077; 87101; 87116; 87176; 87186; 87205; 87206 ==

== ENCOUNTER 2024-01-14 11:00 | Outpatient (RCR) | payer MEDICARE, MEDICAID, SELFPAY ==
[2023-12-21 00:43] VITALS: BP 153/78; PULSE 98; RESP 18; TEMP 36.6
[2023-12-31 11:08] VITALS: BP 165/85; PULSE 87; RESP 18; TEMP 36.1
--- NOTE | 2023-12-31 11:14 | PN.PCM_ITS ---
History of Present Illness Date of Service: 12/31/23 Chief Complaint: Surgical wound dehiscence right leg History of Wound: Patient is a 38-year-old female who subsequently developed a surgical wound dehiscence of her right lateral lower extremity. She previously underwent surgery for primary repair of split tear of the peroneus brevis tendon, primary repair of anterior tibiofibular ligament (AITFL), and syndesmotic reduction via tight rope of the right lower extremity on 04/24/2023. Following removal of sutures she developed surgical wound dehiscence secondary to continued lower extremity swelling via chronic venous insufficiency. She did undergo debridement in office 06/05/2023 and Deidre was applied at this time with Tubigrip compression. She has worn compression stockings to manage lower extremity swelling prior to surgical intervention. Patient is also noted to have autoimmune disease and is managed by rheumatology with medication and did resume all medications 2 weeks post operative per rheumatology. She was referred to the wound care center for continued wound healing. She has been applying Deidre and dry sterile dressings daily. She denies N/V/F/chills. Denies further complaints. Subjective Subjective Patient is a 38-year-old female who presents to the wound care center today for f/u of a right lateral leg surgical dehiscence s/p repair of split tear of peroneal brevis tendon, AITFL ligament repair, and syndesmotic repair of the right ankle. She reports she is continuing to walk in the surgical shoe without difficulty. Continues working with resistance bands at home with home exercises to increase strength to lower extremity. She has continued to apply the topical tacrolimus ointment. She reports recent dermatology visit and biopsy was performed. She denies constitutional symptoms today. Denies further complaints today. Objective Data Objective Data Vital Signs: Vital Signs Temp Pulse Resp BP 97.8 F 98 18 153/78 H 12/21/23 00:43 12/21/23 00:43 12/21/23 00:43 12/21/23 00:43 Physical Exam Const alert, oriented x3 and no apparent distress General Appearance: cooperative HEENT normocephalic Eyes General Eye: normal appearance of both eyes Neck General: normal visual inspection Lymph Lymphatic: no lymphadenopathy noted and no lymphedema noted Resp normal respiratory effort Cardio regular rate and regular rhythm Extremity normal capillary refill, no joint enlargement and no calf tenderness Extremity Narrative: Vascular DP and PT pulses palpable bilateral. Capillary fill time less than 3 seconds to digits bilateral. Normal temperature gradient. There is hair growth present to lower extremity and digits. Dermatological: There is bilateral lower extremity edema secondary to chronic venous stasis with some hemosiderin deposition noted about the right lower extremity. The surgical dehiscence of the proximal incision on the right lower extremity with subsequent ulceration had reopened with fibrogranular layer. Surrounding skin does have resolving rubor secondary to chronic venous stasis in addition to autoimmune disease. No signs of infection. Distal aspect of the incision right lateral leg is a well-healed cicatrix. Anterior lateral leg demonstrates well-healed cicatrix. No signs of infection. Medial ankle wound secondary to autoimmune response with rubor noted with some tenderness to palpation. - Improving ulcerations with use of topical tacrolimus ointment On 08/28/2023 she demonstrated worsening of the medial and lateral ulcerative sites with deep purple violaceous border and hypertrophy of the wound bed and was started on oral steroid for possible pyoderma gangrenosum. She returned again on 09/03/2023 following oral steroid with noted improvement in tissue color surrounding the ulcerative sites and decreasing hypertrophy of the wound bed tissue. Pain also noted to be improving following oral steroid. Debridement was stopped at this time. Musculoskeletal: Muscle strength 5 of 5 age-appropriate. No pain to palpation about the lateral leg of the right lower extremity. Skin no rashes or lesions noted, skin turgor normal and no jaundice Neuro moves all extremities Debridement Note Debridement Note No debridement was completed: No debridement was completed today Assessment/Plan Assessment/Plan (1) Pyoderma gangrenosum: CODE(S): L88 - Pyoderma gangrenosum (2) Non-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: CODE(S): L97.312 - Non-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 (3) Non-pressure chronic ulcer of right calf with fat layer exposed: CODE(S): L97.212 - Non-pressure chronic ulcer of right calf with fat layer exposed (4) Injury of peroneal tendon of right foot: CODE(S): S86.301A - Unspecified injury of muscle(s) and tendon(s) of peroneal muscle group at lower leg level, right leg, initial encounter QUALIFIERS: Encounter type: subsequent encounter Qualified Code(s): S86.301D - Unspecified injury of muscle(s) and tendon(s) of peroneal muscle group at lower leg level, right leg, subsequent encounter (5) Rupture of ligament of right ankle: CODE(S): S93.401A - Sprain of unspecified ligament of right ankle, initial encounter (6) Syndesmotic disruption of right ankle: CODE(S): S93.431A - Sprain of tibiofibular ligament of right ankle, initial encounter QUALIFIERS: Encounter type: subsequent encounter Qualified Code(s): S93.431D - Sprain of tibiofibular ligament of right ankle, subsequent encounter (7) Peroneal tendinitis, right leg: CODE(S): M76.71 - Peroneal tendinitis, right leg (8) Surgical wound dehiscence: CODE(S): T81.31XA - Disruption of external operation (surgical) wound, not elsewhere classified, initial encounter QUALIFIERS: Encounter type: subsequent encounter Qualified C ode(s): T81.31XD - Disruption of external operation (surgical) wound, not elsewhere classified, subsequent encounter (9) Pain in right lower leg: CODE(S): M79.661 - Pain in right lower leg (10) Venous insufficiency (chronic) (peripheral): CODE(S): I87.2 - Venous insufficiency (chronic) (peripheral) PLAN: Plan Patient seen and evaluated She presents today postoperatively s/p primary repair of split tear of peroneal brevis tendon, primary repair of anterior tibiofibular ligament (AITFL), and syndesmotic reduction via tight rope DOS 04/24/2023, POD #[id number] Currently 8 months, 3 weeks out of surgery. States pain to her right lateral ankle is continuing to improve at surgical site but still worker helper about ulceration sites, she is continuing weight bearing to the Right foot. She reports incision did begin to open up on 06/02/2023. Dehiscence occurred 2 weeks following the removal of her sutures. States no pain along peroneal tendon or to eversion of the foot or at anterior lateral ankle overlying the ATIFL. Does have tenderness to the medial and lateral ankle ulceration secondary pyoderma gangrenosum. 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 She does have some occasional discomfort with the pyoderma. She has remained protective weightbearing to the right lower extremity with taylor gical shoe. Stiffness in the ankle has improved through continued use of therapy bands and home exercises. Discussed transition to supportive shoe gear once ulcerations have healed. Dressings were removed today and site was inspected. Anterior lateral ankle demonstrates well-healed cicatrix. Lateral ankle demonstrates well-healed cicatrix distally and proximally ulceration, which has reopened secondary to pyroderma gangrenosum. Medial ankle wound secondary to pyroderma gangrenosum. On 08/28/2023 she demonstrated worsening of the medial and lateral ulcerative sites with deep purple violaceous border and hypertrophy of the wound bed and was started on oral steroid for possible pyoderma gangrenosum. She returned again on 09/03/2023 following oral steroid with noted improvement in tissue color surrounding the ulcerative sites and decreasing hypertrophy of the wound bed tissue. Pain also noted to be improving following oral steroid at that time. Debridement was stopped and oral steroid was started continued for additional week following addition of topical Tacrolimus with plan to monitor response. Patient is stating the pain is improved following the use of the steroid and the steroid course was extended as I do feel she has pyoderma gangrenosum. 09/10/2023 she was prescribed topical tacrolimus 0.1% to apply the wound bed daily. Will continue the topical steroid which is working and she is demonstrating healing of ulcerative sites, will continue to monitor. Ulceration did not undergo debridement. Ulceration lateral leg remains reopened as of 12/03/23 and measures 1.5 cm x 1.3 cm x 0.1 cm. Medial ankle ulceration measures 1.4 cm x 1.7 cm x 0.1 cm due to recent dermatology biopsy on 12/29/23. Her pyoderma gangrenosum is responding well to the topical tacrolimus, but I do feel she would benefit from oral dapsone treatment and dermatology referral. Will continue applying topical tacrolimus 0.1% cream daily. Compression via HAKEEM wrap applied to the lower extremity. She was also encouraged to elevate lower extremity at all times of rest for edema control. Ulceration to the lateral leg has reopened versus previous visit and medial leg has remained the same size. Discussed referral to dermatology on 12/10/23 for additional treatments. She had first appointment with dermatology on 12/29/2023. She reports a biopsy was performed at this time and is awaiting results. Dermatology wanted her to stop applying topical tacrolimus and apply timolol drops with 2 drops per wound twice a day and continue with compression stockings. There has been some reduction in size of the lateral ulceration vs previous visit. Medial is larger due to recent biopsy. 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 Patient is currently on immunosuppressant agents for autoimmune disease Discussed adequate protein intake to aid in wound healing. She will continue Oscar supplementation. Discussed continuing range of motion exercises, working with resistance bands to increase lower extremity strength. Discussed as wound nears closure physical therapy may be implemented to improve strength and motion to the right lower extremity. Discussed transition to supportive shoe gear to the right lower extremity once ulcerations are healed. Her gait is noted to be much improved versus prior to surgical intervention. At this time overall prognosis is good but complicated due to surgical dehiscence/pyoderma gangrenosum, will continue topical tacrolimus. Will continue to follow with Dermatology. Venous studies were performed 07/09/2023, no evidence of DVT. Valvular competence appears intact within the proximal deep venous system bilaterally. Great saphenous vein appears bilaterally patent and compressible segmentally. Saphenofemoral junctions are bilaterally competent. There is segmental valvular incompetence noted in the great saphenous veins bilaterally, small saphenous veins patent and competent on the right and patent and incompetent on the left. There are several incompetent accessory saphenous veins and tributaries in the right lower extremity and 2 accessory saphenous veins of the left calf are incompetent. Discussed signs and symptoms of infection. Discussed with her if she notices increasing redness about the ulcerative site that moves up the leg, purulent drainage from the ulcerative site, increasing foul odor from the ulcerative site, or if she develops fever greater than 101 degree, develops nausea, vomiting, chills, these are signs of a progressing infection and she should report to the ED for IV antibiotics. She voices understanding of this today. The following work up and care recommendations were made: Dressing: Tacrolimus ointment, Adaptic, Dry sterile dressing. Change dressing daily Wash: Soap and water Tissue growth optimization: Topical tacrolimus Offload: To transition to full weightbearing to the right lower extremity in supportive shoe gear. foot. Patient was previously in CAM boot until surgical wound dehiscence. Transitioned back to surgical shoe to allow for decreased pressure at the wound site on the leg. Vascular: DP and PT pulses palpable with adequate capillary fill time to digits. Edema: Patient does have chronic venous insufficiency with bilateral lower extremity edema. Tubigrip compression is applied. Once wound is closed she will return to her prescription compression stockings. Infection: No signs of infection. Pain: May take [id number] Tylenol for discomfort Host factors: Chronic venous insufficiency, autoimmune disease, pyoderma gangrenosum I answered all the patient's questions. To return to the wound healing center in 2 weeks or call sooner if the patient has any questions or concerns. Will RTC for continued wound healing and postoperative care s/p primary repair of split tear of peroneal brevis tendon, primary repair of anterior tibiofibular ligament (AITFL), and syndesmotic repair via tight rope right lower extremity.
--- NOTE | 2024-01-06 08:47 | WC ---
PHOTO 12/31/23 RIGHT LATERAL ANKLE
--- NOTE | 2024-01-06 08:58 | WC ---
PHOTO 12/31/23 RIGHT MEDIAL ANKLE
[2024-01-14 11:48] VITALS: BP 145/69; PULSE 82; RESP 18; TEMP 36.1
--- NOTE | 2024-01-14 12:14 | PN.PCM_ITS ---
History of Present Illness Date of Service: 01/14/24 Chief Complaint: Surgical wound dehiscence right leg History of Wound: Patient is a 38-year-old female who subsequently developed a surgical wound dehiscence of her right lateral lower extremity. She previously underwent surgery for primary repair of split tear of the peroneus brevis tendon, primary repair of anterior tibiofibular ligament (AITFL), and syndesmotic reduction via tight rope of the right lower extremity on 04/24/2023. Following removal of sutures she developed surgical wound dehiscence secondary to continued lower extremity swelling via chronic venous insufficiency. She did undergo debridement in office 06/05/2023 and Deidre was applied at this time with Tubigrip compression. She has worn compression stockings to manage lower extremity swelling prior to surgical intervention. Patient is also noted to have autoimmune disease and is managed by rheumatology with medication and did resume all medications 2 weeks post operative per rheumatology. She was referred to the wound care center for continued wound healing. She has been applying Deidre and dry sterile dressings daily. She denies N/V/F/chills. Denies further complaints. Subjective Subjective Patient is a 38-year-old female who presents to the wound care center today for f/u of a right lateral leg surgical dehiscence s/p repair of split tear of peroneal brevis tendon, AITFL ligament repair, and syndesmotic repair of the right ankle. She reports she is continuing to walk in the surgical shoe without difficulty. Continues working with resistance bands at home with home exercises to increase strength to lower extremity. She reports recent dermatology visit and results of biopsy were discussed with her. She continues to follow their treatment plan. She denies constitutional symptoms today. Denies further complaints today. Objective Data Objective Data Vital Signs: Vital Signs Temp Pulse Resp BP O2 Del Method 97.0 F L 82 18 145/69 H Room Air 01/14/24 11:48 01/14/24 11:48 01/14/24 11:48 01/14/24 11:48 01/14/24 11:48 Oxygen Delivery Method Room Air Physical Exam Const alert, oriented x3 and no apparent distress General Appearance: cooperative HEENT normocephalic Eyes General Eye: normal appearance of both eyes Neck General: normal visual inspection Lymph Lymphatic: no lymphadenopathy noted and no lymphedema noted Resp normal respiratory effort Cardio regular rate and regular rhythm Extremity normal capillary refill, no joint enlargement and no calf tenderness Extremity Narrative: Vascular DP and PT pulses palpable bilateral. Capillary fill time less than 3 seconds to digits bilateral. Normal temperature gradient. There is hair growth present to lower extremity and digits. Dermatological: There is bilateral lower extremity edema secondary to chronic venous stasis with some hemosiderin deposition noted about the right lower extremity. The surgical dehiscence of the proximal incision on the right lower extremity with subsequent ulceration had reopened with fibrogranular layer. Surrounding skin does have resolving rubor secondary to chronic venous stasis in addition to autoimmune disease. No signs of infection. Distal aspect of the incision right lateral leg is a well-healed cicatrix. Anterior lateral leg demonstrates well-healed cicatrix. No signs of infection. Medial ankle wound secondary to autoimmune response with rubor noted with some tenderness to palpation. - Improving ulcerations with use of topical tacrolimus ointment On 08/28/2023 she demonstrated worsening of the medial and lateral ulcerative sites with deep purple violaceous border and hypertrophy of the wound bed and was started on oral steroid for possible pyoderma gangrenosum. She returned again on 09/03/2023 following oral steroid with noted improvement in tissue color surrounding the ulcerative sites and decreasing hypertrophy of the wound bed tissue. Pain also noted to be improving following oral steroid. Debridement was stopped at this time. Musculoskeletal: Muscle strength 5 of 5 age-appropriate. No pain to palpation about the lateral leg of the right lower extremity. Skin no rashes or lesions noted, skin turgor normal and no jaundice Neuro moves all extremities Debridement Note Debridement Note No debridement was completed: No debridement was completed today Post-Debridement Measurements and Additional Note: Post-Debridement Measurements/Treatment - Nurse 1 - General Ulcer Assessment Start: 12/31/23 11:07 Freq: Status: Active Protocol: NEELA.LOWEXT Activity Type Activity Date Activity User E-sign Co-sign Detail Recorded Client Recorded Date Recorded By Document 12/31/23 11:08 DL [id number] 12/31/23 11:15 DL Document 01/14/24 11:48 KW l 01/14/24 12:01 KW 12/31/23 01/14/24 11:08 11:48 - Today's Visit Information Type of service Follow-up Visit Follow-up Visit (Physician/HEALTH AND WELLNESS COORDINATOR (Physician/HEALTH AND WELLNESS COORDINATOR ) ) Arrival Mode Ambulatory, Ambulatory, Walker Other Arrival Mode (Other) KNEE SCOOTER Transfer Assistance None Patient Identification Verified (Name & Yes Yes ) Patient Requires Transmission-Based No Precautions Vital Signs Temperature (97.8 F-99.1 F) 97 F L 97.0 F L Temperature Source Temporal Temporal Pulse Rate (60-100) 87 82 Pulse Location Monitor Monitor Respiratory Rate (12-18) 18 18 Respiratory rate source Observation Observation Oxygen Delivery Method Room Air Blood Pressure (90/60-120/80) 165/85 H 145/69 H Blood Pressure Mean (mm Hg) 111 94 Source Monitor Monitor Position Semi-Fowlers Blood Pressure Location Left Arm History Since Last Visit- (Skip if this is Patient's initial visit) Have you changed medications since your No No last visit? Any new allergies or adverse reactions No No Had a fall/change in ADL's that may No No increase risk of falls Signs or symptoms of abuse and/or No No neglect since last visit Have you been in the hospital since your No No last visit? Has dressing in place as prescribed Yes Yes Has compression in place as prescribed Yes Yes Has offloadiing in place as prescribed Yes Yes Experienced any changes in pain level or No No management Left Footwear Surgical Shoe with pressure relief insole Right Footwear Regular Shoe Pain Scale: 0-10 Numeric Is Patient Pain Free? Yes Yes WC - Nurse 1 - General Ulcer Measurement Start: 12/31/23 11:07 Freq: Status: Active Protocol: Activity Type Activity Date Activity User E-sign Co-sign Detail Recorded Client Recorded Date Recorded By Document 12/31/23 11:08 DL [email or web address] 12/31/23 11:15 DL Document 01/14/24 11:48 KW l 01/14/24 12:01 KW 12/31/23 01/14/24 11:08 11:48 Wound Center Nurse 1 #2 RT MED ANKLE -Current Size (cm) - Length 1.5 1.4 -Current Size (cm) - Width 1.5 1.5 -Current Size (cm) - Depth 0.2 0 -Total Square Cm 2.25 2.10 -Date of Last Picture (Recall this 01/14/24 field) -Photo Taken Yes -Exudate Amt Medium Small -Exudate Type Serous Serosanguineous -Wound Margin Distinct, Distinct, Outline Outline Attached Attached -Granulation Amt Medium (34-66%) Large (67-100%) -Granulation Quality Red Hyper- granulation,Red -Necrosis Amt Medium (34-66%) -Necrotic Tissue Type Adherent Slough -Structure Exposed N/A -Texture (Meghan-wound Skin Appearance) Scarring Not Assessed -Moisture (Meghan-wound Skin Appearance) Assessed -Color (Meghan-wound Skin Appearance) Erythema Assessed, Erythema -Temperature (Meghan-wound Skin No Abnormality No Abnormality Appearance) (Pt Warm) (Pt Warm) -Tenderness on Palpation (Meghan-wound No Skin Appearance) -Ulcer Cleansing Soap and Water Rinsed/ Irrigated with Saline -Foul Odor after Cleansing No No -Anesthetic Used 5% Lidocaine Gel #1 RT LAT ANKLE CLUSTER -Current Size (cm) - Length 1.7 3.5 -Current Size (cm) - Width 1 1.5 -Current Size (cm) - Depth 0.3 0.2 -Total Square Cm 1.7 5.25 -Date of Last Picture (Recall this 01/14/24 field) -Photo Taken Yes -Exudate Amt Medium Medium -Exudate Type Serosanguineous Serosanguineous -Wound Margin Distinct, Distinct, Outline Outline Attached Attached -Granulation Amt Medium (34-66%) Medium (34-66%) -Granulation Quality Red Red -Necrosis Amt Medium (34-66%) Medium (34-66%) -Necrotic Tissue Type Adherent Slough Adherent Slough -Structure Exposed N/A -Texture (Meghan-wound Skin Appearance) Scarring Assessed -Moisture (Meghan-wound Skin Appearance) No Abnormality Assessed -Color (Meghan-wound Skin Appearance) Erythema Assessed, Erythema -Temperature (Meghan-wound Skin No Abnormality No Abnormality Appearance) (Pt Warm) (Pt Warm) -Tenderness on Palpation (Meghan-wound No No Skin Appearance) -Ulcer Cleansing Soap and Water Rinsed/ Irrigated with Saline -Foul Odor after Cleansing No No -Anesthetic Used 5% Lidocaine Gel Right Calf (cm) 45 46 Right Ankle (cm) 29 30.4 WC - Nurse 2 - General Ulcer CM Notes Start: 12/31/23 11:07 Freq: Status: Active Protocol: Activity Type Activity Date Activity User E-sign Co-sign Detail Recorded Client Recorded Date Recorded By Document 12/31/23 11:25 BMF 10.10..7 12/31/23 11:41 BMF Document 01/14/24 12:03 [facility] [id number] 01/14/24 12:12 BMF 12/31/23 01/14/24 11:25 12:03 Wound Center Nurse 2 #2 RT MED ANKLE -Time 11:32 12:05 -Post Debridement (cm) - Length 1.4 1.4 -Post Debridement (cm) - Width 1.7 1.4 -Post Debridement (cm) - Depth 0.1 0.1 -Total Square (Post) (cm) 2.38 1.96 -Area of Debridement (cm) - Length 1.4 1.4 -Area of Debridement (cm) - Width 1.7 1.4 -Total Square (Area) (cm) 2.38 1.96 -Tunneling No No -Undermining/Tunneling No No -Circular Undermining No No -Wound/Ulcer Outcome Not Healed Not Healed -Bleeding Controlled with NA NA #1 RT LAT ANKLE CLUSTER -Time 11:34 12:05 -Post Debridement (cm) - Length 1.5 2.4 -Post Debridement (cm) - Width 0.3 1.5 -Post Debridement (cm) - Depth 0.1 0.1 -Total Square (Post) (cm) 0.45 3.60 -Area of Debridement (cm) - Length 1.5 2.4 -Area of Debridement (cm) - Width 0.3 1.5 -Total Square (Area) (cm) 0.45 3.60 -Tunneling No No -Undermining/Tunneling No No -Circular Undermining No No -Wound/Ulcer Outcome Not Healed Not Healed -Bleeding Controlled with NA NA Pain Scale: 0-10 Numeric Is Patient Pain Free? Yes Yes WC - Nurse 3 - General Ulcer D/C NN Start: 12/31/23 11:07 Freq: Status: Active Protocol: Activity Type Activity Date Activity User E-sign Co-sign Detail Recorded Client Recorded Date Recorded By Document 12/31/23 11:45 DL 03.31.25.7 12/31/23 11:47 DL 12/31/23 11:45 Wound Care Center Nurse 3 #2 RT MED ANKLE -Ulcer Cleansing Rinsed/ Irrigated with Saline -Foul Odor after Cleansing No -Primary Dressing Covered/Secured with Dry Gauze & Roll Gauze, Secured with Tape -Other Covering ABD #1 RT LAT ANKLE CLUSTER -Ulcer Cleansing Rinsed/ Irrigated with Saline -Foul Odor after Cleansing No -Primary Dressing Covered/Secured with Dry Gauze & Roll Gauze, Secured with Tape Right -Tubular Bandage Single Layer -Size of Tubigrip Used Size D -Size D ($) 1 Treatment Response Procedure Tolerated Well Pain Scale: 0-10 Numeric Is Patient Pain Free? Yes WC - Visit Discharge Discharge Condition Stable Ambulatory Status Ambulatory, Walker Transportation Private Auto Assessment/Plan Assessment/Plan (1) Pyoderma gangrenosum: CODE(S): L88 - Pyoderma gangrenosum (2) Non-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: CODE(S): L97.312 - Non-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 (3) Non-pressure chronic ulcer of right calf with fat layer exposed: CODE(S): L97.212 - Non-pressure chronic ulcer of right calf with fat layer exposed (4) Injury of peroneal tendon of right foot: CODE(S): S86.301A - Unspecified injury of muscle(s) and tendon(s) of peroneal muscle group at lower leg level, right leg, initial encounter QUALIFIERS: Encounter type: subsequent encounter Qualified Code(s): S86.301D - Unspecified injury of muscle(s) and tendon(s) of peroneal muscle group at lower leg level, right leg, subsequent encounter (5) Rupture of ligament of right ankle: CODE(S): S93.401A - Sprain of unspecified ligament of right ankle, initial encounter (6) Syndesmotic disruption of right ankle: CODE(S): S93.431A - Sprain of tibiofibular ligament of right ankle, initial encounter QUALIFIERS: Encounter type: subsequent encounter Qualified Code(s): S93.431D - Sprain of tibiofibular ligament of right ankle, subsequent encounter (7) Peroneal tendinitis, right leg: CODE(S): M76.71 - Peroneal tendinitis, right leg (8) Surgical wound dehiscence: CODE(S): T81.31XA - Disruption of external operation (surgical) wound, not elsewhere classified, initial encounter QUALIFIERS: Encounter type: subsequent encounter Qualified Code(s): T81.31XD - Disruption of external operation (surgical) wound, not elsewhere classified, subsequent encounter (9) Pain in right lower leg: CODE(S): M79.661 - Pain in right lower leg (10) Venous insufficiency (chronic) (peripheral): CODE(S): I87.2 - Venous insufficiency (chronic) (peripheral) PLAN: Plan Patient seen and evaluated She presents today postoperatively s/p primary repair of split tear of peroneal brevis tendon, primary repair of anterior tibiofibular ligament (AITFL), and syndesmotic reduction via tight rope DOS 04/24/2023, POD #[id number] Currently 9 months, 1 weeks out of surgery. 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 She reports incision did begin to open up on 06/02/2023. Dehiscence occurred 2 weeks following the removal of her sutures. States no pain along peroneal tendon or to eversion of the foot or at anterior lateral ankle overlying the ATIFL. Does have tenderness to the medial and lateral ankle ulceration secondary pyoderma gangrenosum. 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 She does have some occasional discomfort with the pyoderma. She has remained protective weightbearing to the right lower extremity with surgical shoe. Stiffness in the ankle has improved through continued use of therapy bands and home exercises. Discussed transition to supportive shoe gear once ulcerations have healed. Dressings were removed today and site was inspected. Anterior lateral ankle demonstrates well-healed cicatrix. Lateral ankle demonstrates well-healed cicatrix distally and proximally ulceration, which has reopened secondary to pyroderma gangrenosum. Medial ankle wound secondary to pyroderma gangrenosum. On 08/28/2023 she demonstrated worsening of the medial and lateral ulcerative sites with deep purple violaceous border and hypertrophy of the wound bed and was started on oral steroid for possible pyoderma gangrenosum. She returned again on 09/03/2023 following oral steroid with noted improvement in tissue color surrounding the ulcerative sites and decreasing hypertrophy of the wound bed tissue. Pain also noted to be improving following oral steroid at that time. Debridement was stopped and oral steroid was started continued for additional week following addition of topical Tacrolimus with plan to monitor response. Patient is stating the pain is improved following the use of the steroid and the steroid course was extended as I do feel she has pyoderma gangrenosum. 09/10/2023 she was prescribed topical tacrolimus 0.1% to apply the wound bed daily. Will continue the topical steroid which is working and she is demonstrating healing of ulcerative sites, will continue to monitor. Ulceration did not undergo debridement. Ulceration lateral leg remains reopened as of 12/03/23 and measures 2.4 cm x 1.5 cm x 0.1 cm. Medial ankle ulceration measures 1.4 cm x 1.4 cm x 0.1 cm due to recent dermatology biopsy on 12/29/23. Her pyoderma gangrenosum has responded well to the topical tacrolimus, but I do feel she would benefit from oral dapsone treatment and dermatology referral. Will continue applying topical tacrolimus 0.1% cream daily. Compression via HAKEEM wrap applied to the lower extremity. She was also encouraged to elevate lower extremity at all times of rest for edema control. Ulceration to the lateral leg reopened and medial leg has remained the same size. Discussed referral to dermatology on 12/10/23 for additional treatments. She had first appointment with dermatology on 12/29/2023. She reports a biopsy was performed at this time and is awaiting results. Dermatology wanted her to stop applying topical tacrolimus and apply timolol drops with 2 drops per wound twice a day and continue with compression stockings. There has been some recent increase in size of the lateral ulceration vs previous visit. Medial larger due to recent biopsy, but slowing healing. She is discussing with Rheumatology and Spinning And Winding Supervisor utilizing new medications once wound is healed. Patient is currently on immunosuppressant agents for autoimmune disease Discussed adequate protein intake to aid in wound healing. She will continue Oscar supplementation. Discussed continuing range of motion exercises, working with resistance bands to increase lower extremity strength. Discussed as wound nears closure physical therapy may be implemented to improve strength and motion to the right lower extremity. Discussed transition to supportive shoe gear to the right lower extremity once ulcerations are healed. Her gait is noted to be much improved versus prior to surgical intervention. At this time overall prognosis is good but complicated due to surgical dehiscence/pyoderma gangrenosum, will continue timolol drops per derm. Will continue to follow with Dermatology. Venous studies were performed 07/09/2023, no evidence of DVT. Valvular competence appears intact within the proximal deep venous system bilaterally. Great saphenous vein appears bilaterally patent and compressible segmentally. Saphenofemoral junctions are bilaterally competent. There is segmental valvular incompetence noted in the great saphenous veins bilaterally, small saphenous veins patent and competent on the right and patent and incompetent on the left. There are several incompetent accessory saphenous veins and tributaries in the right lower extremity and 2 accessory saphenous veins of the left calf are incompetent. LEAS were ordered 01/14/24 at recommendation of Dermatology. Discussed signs and symptoms of infection. Discussed with her if she notices increasing redness about the ulcerative site that moves up the leg, purulent drainage from the ulcerative site, increasing foul odor from the ulcerative site, or if she develops fever greater than 101 degree, develops nausea, vomiting, chills, these are signs of a progressing infection and she should report to the ED for IV antibiotics. She voices understanding of this today. The following work up and care recommendations were made: Dressing: Tacrolimus ointment vs Timolol drops, Adaptic, Dry sterile dressing. Change dressing daily Wash: Soap and water Tissue growth optimization: Topical tacrolimus vs Timolol drops Offload: To transition to full weightbearing to the right lower extremity in supportive shoe gear. foot. Patient was previously in CAM boot until surgical wound dehiscence. Transitioned back to surgical shoe to allow for decreased pressure at the wound site on the leg. Vascular: DP and PT pulses palpable with adequate capillary fill time to digits. Edema: Patient does have chronic venous insufficiency with bilateral lower extremity edema. Tubigrip compression is applied. Once wound is closed she will return to her prescription compression stockings. Infection: No signs of infection. Pain: May take [id number] Tylenol for discomfort Host factors: Chronic venous insufficiency, autoimmune disease, pyoderma gangrenosum I answered all the patient's questions. To return to the wound healing center in 2 weeks or call sooner if the patient has any questions or concerns. Will RTC for continued wound healing and postoperative care s/p primary repair of split tear of peroneal brevis tendon, primary repair of anterior tibiofibular ligament (AITFL), and syndesmotic repair via tight rope right lower extremity.
--- NOTE | 2024-01-21 11:38 | WC ---
PHOTO 01/14/24 RIGHT MEDIAL ANKLE
--- NOTE | 2024-01-21 11:38 | WC ---
PHOTO RIGHT LATERAL ANKLE 01/14/24
== END 2024-01-20 23:59 | disposition home or self-care (01) ==
LOC: WC 11:00
PROVIDERS: PCP Internal Medicine; Referring Provider Student in an Organized Health Care Education/Training Program; Visit Provider Student in an Organized Health Care Education/Training Program
DX: T81.31XA Disruption of external operation (surgical) wound, not elsewhere classified, initial encounter (principal); L97.212 Non-pressure chronic ulcer of right calf with fat layer exposed; L97.312 Non-pressure chronic ulcer of right 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; L88 Pyoderma gangrenosum; I87.2 Venous insufficiency (chronic) (peripheral); S93.431S Sprain of tibiofibular ligament of right ankle, sequela; Y83.8 Other surgical procedures as the cause of abnormal reaction of the patient, or of later complication, without mention of misadventure at the time of the procedure; M35.9 Systemic involvement of connective tissue, unspecified; M76.71 Peroneal tendinitis, right leg; R60.0 Localized edema; Z79.82 Long term (current) use of aspirin; Z79.899 Other long term (current) drug therapy
CPT/HCPCS: 99213; G0463

== ENCOUNTER 2024-02-11 11:00 | Outpatient (RCR) | payer MEDICARE, MEDICAID, SELFPAY ==
[2024-01-21 00:47] VITALS: BP 153/78; PULSE 98; RESP 18; TEMP 36.6
[2024-01-28 11:11] VITALS: BP 164/97; PULSE 89; RESP 20; TEMP 36.1
--- NOTE | 2024-01-28 12:23 | PN.PCM_ITS ---
History of Present Illness Date of Service: 01/28/24 Chief Complaint: Surgical wound dehiscence right leg History of Wound: Patient is a 38-year-old female who subsequently developed a surgical wound dehiscence of her right lateral lower extremity. She previously underwent surgery for primary repair of split tear of the peroneus brevis tendon, primary repair of anterior tibiofibular ligament (AITFL), and syndesmotic reduction via tight rope of the right lower extremity on 04/24/2023. Following removal of sutures she developed surgical wound dehiscence secondary to continued lower extremity swelling via chronic venous insufficiency. She did undergo debridement in office 06/05/2023 and Deidre was applied at this time with Tubigrip compression. She has worn compression stockings to manage lower extremity swelling prior to surgical intervention. Patient is also noted to have autoimmune disease and is managed by rheumatology with medication and did resume all medications 2 weeks post operative per rheumatology. She was referred to the wound care center for continued wound healing. She has been applying Deidre and dry sterile dressings daily. She denies N/V/F/chills. Denies further complaints. Subjective Subjective Patient is a 38-year-old female who presents to the wound care center today for f/u of a right lateral leg surgical dehiscence s/p repair of split tear of peroneal brevis tendon, AITFL ligament repair, and syndesmotic repair of the right ankle. She reports she is continuing to walk in the surgical shoe without difficulty. Continues to follow with dermatology and following instructions for dressing changes daily. She continues to follow their treatment plan. She denies constitutional symptoms today. Denies further complaints today. Objective Data Objective Data Vital Signs: Vital Signs Temp Pulse Resp BP 96.9 F L 89 20 H 164/97 H 01/28/24 11:11 01/28/24 11:11 01/28/24 11:11 01/28/24 11:11 Physical Exam Const alert, oriented x3 and no apparent distress General Appearance: cooperative HEENT normocephalic Eyes General Eye: normal appearance of both eyes Neck General: normal visual inspection Lymph Lymphatic: no lymphadenopathy noted and no lymphedema noted Resp normal respiratory effort Cardio regular rate and regular rhythm Extremity normal capillary refill, no joint enlargement and no calf tenderness Extremity Narrative: Vascular DP and PT pulses palpable bilateral. Capillary fill time less than 3 seconds to digits bilateral. Normal temperature gradient. There is hair growth present to lower extremity and digits. Dermatological: There is bilateral lower extremity edema secondary to chronic venous stasis with some hemosiderin deposition noted about the right lower extre mity. The surgical dehiscence of the proximal incision on the right lower extremity with subsequent ulceration had reopened with fibrogranular layer. Surrounding skin does have resolving rubor secondary to chronic venous stasis in addition to autoimmune disease and lipodermatosclerosis. No signs of infection. Distal aspect of the incision right lateral leg is a well-healed cicatrix. Anterior lateral leg demonstrates well-healed cicatrix. No signs of infection. Medial ankle wound secondary to autoimmune response/lipodermatosclerosis with rubor noted with some tenderness to palpation. - Improving ulcerations with use of topical tacrolimus ointment/timolol drops. On 08/28/2023 she demonstrated worsening of the medial and lateral ulcerative sites with deep purple violaceous border and hypertrophy of the wound bed and was started on oral steroid for possible pyoderma gangrenosum. She returned again on 09/03/2023 following oral steroid with noted improvement in tissue color surrounding the ulcerative sites and decreasing hypertrophy of the wound bed tissue. Pain also noted to be improving following oral steroid. Debridement was stopped at this time. Musculoskeletal: Muscle strength 5 of 5 age-appropriate. No pain to palpation about the lateral leg of the right lower extremity. Skin no rashes or lesions noted, skin turgor normal and no jaundice Neuro moves all extremities Debridement Note Debridement Note No debridement was completed: No debridement was completed today Post-Debridement Measurements and Additional Note: Post-Debridement Measurements/Treatment - Nurse 1 - General Ulcer Assessment Start: 01/28/24 11:11 Freq: Status: Active Protocol: WC.LOWEXT Activity Type Activity Date Activity User E-sign Co-sign Detail Recorded Client Recorded Date Recorded By Document 01/28/24 11:11 DL [id number] 01/28/24 11:18 DL 01/28/24 11:11 - Today's Visit Information Type of service Follow-up Visit (Physician/WE[facility]LLER ) Arrival Mode Ambulatory Transfer Assistance None Patient Identification Verified (Name & Yes ) Patient Requires Transmission-Based No Precautions Vital Signs Temperature (97.8 F-99.1 F) 96.9 F L Temperature Source Temporal Pulse Rate (60-100) 89 Pulse Location Apical Respiratory Rate (12-18) 20 H Respiratory rate source Observation Blood Pressure (90/60-120/80) 164/97 H Blood Pressure Mean (mm Hg) 119 Source Monitor History Since Last Visit- (Skip if this is Patient's initial visit) Have you changed medications since your No last visit? Any new allergies or adverse reactions No Had a fall/change in ADL's that may No increase risk of falls Signs or symptoms of abuse and/or No neglect since last visit Have you been in the hospital since your No last visit? Has dressing in place as prescribed Yes Has compression in place as prescribed Yes Has offloadiing in place as prescribed Yes Experienced any changes in pain level or No management Pain Scale: 0-10 Numeric Is Patient Pain Free? Yes WC - Nurse 1 - General Ulcer Measurement Start: 01/28/24 11:11 Freq: Status: Active Protocol: Activity Type Activity Date Activity User E-sign Co-sign Detail Recorded Client Recorded Date Recorded By Document 01/28/24 11:11 DL [email or web address] 01/28/24 11:18 DL 01/28/24 11:11 Wound Center Nurse 1 #2 RT MED ANKLE -Current Size (cm) - Length 0.8 -Current Size (cm) - Width 0.7 -Current Size (cm) - Depth 0.1 -Total Square Cm 0.56 -Exudate Amt Small -Exudate Type Serosanguineous -Wound Margin Distinct, Outline Attached -Granulation Amt Small (1-33%) -Granulation Quality Anselmo -Necrosis Amt Small (1-33%) -Necrotic Tissue Type Adherent Slough -Structure Exposed N/A -Texture (Meghan-wound Skin Appearance) Scarring -Moisture (Meghan-wound Skin Appearance) No Abnormality -Color (Meghan-wound Skin Appearance) Hemosiderin Staining -Temperature (Meghan-wound Skin No Abnormality Appearance) (Pt Warm) -Ulcer Cleansing Rinsed/ Irrigated with Saline -Foul Odor after Cleansing No -Anesthetic Used 5% Lidocaine Gel #1 RT LAT ANKLE CLUSTER -Current Size (cm) - Length 2 -Current Size (cm) - Width 0.6 -Current Size (cm) - Depth 0.1 -Total Square Cm 1.2 -Exudate Amt Small -Exudate Type Serosanguineous -Wound Margin Distinct, Outline Attached -Granulation Amt Small (1-33%) -Granulation Quality Pale -Necrosis Amt None Present (0 %) -Necrotic Tissue Type Adherent Slough -Structure Exposed N/A -Texture (Meghan-wound Skin Appearance) Scarring -Moisture (Meghan-wound Skin Appearance) No Abnormality -Color (Meghan-wound Skin Appearance) Hemosiderin Staining -Temperature (Meghan-wound Skin No Abnormality Appearance) (Pt Warm) -Tenderness on Palpation (Meghan-wound Yes Skin Appearance) -Ulcer Cleansing Rinsed/ Irrigated with Saline -Foul Odor after Cleansing No -Anesthetic Used 5% Lidocaine Gel Right Calf (cm) 42 Right Ankle (cm) 27.5 WC - Nurse 2 - General Ulcer CM Notes Start: 01/28/24 11:11 Freq: Status: Active Protocol: Activity Type Activity Date Activity User E-sign Co-sign Detail Recorded Client Recorded Date Recorded By Document 01/28/24 11:55 JF 000 01/28/24 11:59 JF 01/28/24 11:55 Wound Center Nurse 2 #2 RT MED ANKLE -Correct Patient No -Correct Side, Site, Position No -Correct Procedure No -Procedure Performed No -Post Debridement (cm) - Length 1 -Post Debridement (cm) - Width 1 -Post Debridement (cm) - Depth 0.1 -Total Square (Post) (cm) 1 -Area of Debridement (cm) - Length 1 -Area of Debridement (cm) - Width 1 -Total Square (Area) (cm) 1 -Tunneling No -Undermining/Tunneling No -Circular Undermining No -Wound/Ulcer Outcome Not Healed -Bleeding Controlled with Pressure -Other Type of Bleeding Control Steroid injection -Treatment Response Procedure Tolerated Well -Offloading No -Debridement - Subq, 1st 20sq cm No -Wound Comment(s) 4ml of dexamethasone and 1ml of Kenalog injected to ulcers to periulcer area. #1 RT LAT ANKLE CLUSTER -Correct Patient No -Correct Side, Site, Position No -Correct Procedure No -Procedure Performed No -Post Debridement (cm) - Length 2.5 -Post Debridement (cm) - Width 0.8 -Post Debridement (cm) - Depth 0.1 -Total Square (Post) (cm) 2.00 -Area of Debridement (cm) - Length 2.5 -Area of Debridement (cm) - Width 0.8 -Total Square (Area) (cm) 2.00 -Bleeding Controlled with Pressure -Debridement - Subq, 1st 20sq cm No Pain Scale: 0-10 Numeric Is Patient Pain Free? Yes WC - Nurse 3 - General Ulcer D/C NN Start: 01/28/24 11:11 Freq: Status: Active Protocol: Activity Type Activity Date Activity User E-sign Co-sign Detail Recorded Client Recorded Date Recorded By Document 01/28/24 12:20 CP 01/28/24 12:23 CP 01/28/24 12:20 Wound Care Center Nurse 3 #2 RT MED ANKLE -Ulcer Cleansing Rinsed/ Irrigated with Saline -Other Dressing adaptic -Primary Dressing Covered/Secured with Dry Gauze & Roll Gauze #1 RT LAT ANKLE CLUSTER -Ulcer Cleansing Rinsed/ Irrigated with Saline -Primary Dressing Covered/Secured with Dry Gauze & Roll Gauze -Other Covering adaptic Right -Tubular Bandage Single Layer -Size of Tubigrip Used Size D -Size D ($) 1 -Other hakeem Pain Scale: 0-10 Numeric Is Patient Pain Free? 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 (4) Venous insufficiency (chronic) (peripheral): CODE(S): I87.2 - Venous insufficiency (chronic) (peripheral) (5) Lipodermatosclerosis of right lower extremity: CODE(S): M79.3 - Panniculitis, unspecified (6) Surgical wound dehiscence: CODE(S): T81.31XA - Disruption of external operation (surgical) wound, not elsewhere classified, initial encounter QUALIFIERS: Encounter type: subsequent encounter Qualified Code(s): T81.31XD - Disruption of external operation (surgical) wound, not elsewhere classified, subsequent encounter (7) Injury of peroneal tendon of right foot: CODE(S): S86.301A - Unspecified injury of muscle(s) and tendon(s) of peroneal muscle group at lower leg level, right leg, initial encounter QUALIFIERS: Encounter type: subsequent encounter Qualified Code(s): S86.301D - Unspecified injury of muscle(s) and tendon(s) of peroneal muscle group at lower leg level, right leg, subsequent encounter (8) Rupture of ligament of right ankle: CODE(S): S93.401A - Sprain of unspecified ligament of right ankle, initial encounter (9) Syndesmotic disruption of right ankle: CODE(S): S93.431A - Sprain of tibiofibular ligament of right ankle, initial encounter QUALIFIERS: Encounter type: subsequent encounter Qualified Code(s): S93.431D - Sprain of tibiofibular ligament of right ankle, subsequent encounter (10) Peroneal tendinitis, right leg: CODE(S): M76.71 - Peroneal tendinitis, right leg (11) Pain in right lower leg: CODE(S): M79.661 - Pain in right lower leg PLAN: Plan Patient seen and evaluated She presents today postoperatively s/p primary repair of split tear of peroneal brevis tendon, primary repair of anterior tibiofibular ligament (AITFL), and syndesmotic reduction via tight rope DOS 04/24/2023, POD #279 Currently 9 months, 3 weeks out of surgery. States pain to her right lateral ankle is continuing to improve at surgical site but dresser tender about ulceration sites, she is continuing weight bearing to the Right foot. She reports incision did begin to open up on 06/02/2023. Dehiscence occurred 2 weeks following the removal of her sutures. States no pain along peroneal tendon or to eversion of the foot or at anterior lateral ankle overlying the ATIFL. Does have tenderness to the medial and lateral ankle ulceration secondary pyoderma gangrenosum. 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 She does have some occasional discomfort with the pyoderma. She has remained protective weightbearing to the right lower extremity with surgical shoe. Stiffness in the ankle has improved through continued use of therapy bands and home exercises. Discussed transition to supportive shoe gear once ulcerations have healed. Dressings were removed today and site was inspected. Anterior lateral ankle demonstrates well-healed cicatrix. Lateral ankle demonstrates well-healed cicatrix distally and proximally ulceration, which has reopened secondary to pyroderma gangrenosum. Medial ankle wound secondary to pyroderma gangrenosum. On 08/28/2023 she demonstrated worsening of the medial and lateral ulcerative sites with deep purple violaceous border and hypertrophy of the wound bed and was started on oral steroid for possible pyoderma gangrenosum. She returned again on 09/03/2023 following oral steroid with noted improvement in tissue color surrounding the ulcerative sites and decreasing hypertrophy of the wound bed tissue. Pain also noted to be improving following oral steroid at that time. Debridement was stopped and oral steroid was started continued for additional week following addition of topical Tacrolimus with plan to monitor response. Patient is stating the pain is improved following the use of the steroid and the steroid course was extended as I do feel she has pyoderma gangrenosum. 09/10/2023 she was prescribed topical tacrolimus 0.1% to apply the wound bed daily. Will continue the topical steroid which is working and she is demonstrating healing of ulcerative sites, will continue to monitor. Ulceration did not undergo debridement. Ulceration lateral leg remains reopened as of 12/03/23 and measures 2.5 cm x 0.8 cm x 0.1 cm. Medial ankle ulceration measures 1.0 cm x 1.0 cm x 0.1 cm due to dermatology biopsy on 12/29/23. Her pyoderma gangrenosum has responded well to the topical tacrolimus, but I do feel she would benefit from dermatology referral. Will continue applying timolol drops daily, per Dermatology. Compression via Tubigrip and HAKEEM wrap applied to the lower extremity. She was also encouraged to elevate lower extremity at all times of rest for edema control. Referral to dermatology on 12/10/23 for additional treatments. She had first appointment with dermatology on 12/29/2023. She reports a biopsy was performed. I have discussed biposy and treatment personally with Dr. Moralez. Dermatology wanted her to stop applying topical tacrolimus and apply timolol drops with 2 drops per wound twice a day and continue with compression stockings as they feel PG has settled down. Discussed corticosteroid injection with dermatology and they feel this is appropriate. Corticosteroid injection #1 performed 01/28/2024 consisting of 4 cc dexamethasone and 1 cc Kenalog 10 administered to the lateral wound and medial wound peripheral border following cleansing of area with 70% isopropyl alcohol. Patient tolerated the injection well. Discussed continuing timolol drops. There has been some decrease in size of the lateral ulceration and medial ulceration vs previous visit. 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 Patient is currently on immunosuppressant agents for autoimmune disease Discussed adequate protein intake to aid in wound healing. She will continue Oscar supplementation. Discussed continuing range of motion exercises, working with resistance bands to increase lower extremity strength. Discussed as wound nears closure physical therapy may be implemented to improve strength and motion to the right lower extremity. Discussed transition to supportive shoe gear to the right lower extremity once ulcerations are healed. Her gait is noted to be much improved versus prior to surgical intervention. At this time overall prognosis is good but complicated due to surgical dehiscence/pyoderma gangrenosum, will continue timolol drops per derm. Will continue to follow with Dermatology. Venous studies were performed 07/09/2023, no evidence of DVT. Valvular competence appears intact within the proximal deep venous system bilaterally. Great saphenous vein appears bilaterally patent and compressible segmentally. Saphenofemoral junctions are bilaterally competent. There is segmental valvular incompetence noted in the great saphenous veins bilaterally, small saphenous veins patent and competent on the right and patent and incompetent on the left. There are several incompetent accessory saphenous veins and tributaries in the right lower extremity and 2 accessory saphenous veins of the left calf are incompetent. LEAS were ordered 01/14/24 at recommendation of Dermatology. Discussed signs and symptoms of infection. Discussed with her if she notices increasing redness about the ulcerative site that moves up the leg, purulent drainage from the ulcerative site, increasing foul odor from the ulcerative site, or if she develops fever greater than 101 degree, develops nausea, vomiting, chills, these are signs of a progressing infection and she should report to the ED for IV antibiotics. She voices understanding of this today. The following work up and care recommendations were made: Dressing: Tacrolimus ointment vs Timolol drops, Adaptic, Dry sterile dressing. Change dressing daily Wash: Soap and water Tissue growth optimization: Topical tacrolimus vs Timolol drops Offload: To transition to full weightbearing to the right lower extremity in supportive shoe gear. foot. Patient was previously in CAM boot until surgical wound dehiscence. Transitioned back to surgical shoe to allow for decreased pressure at the wound site on the leg. Vascular: DP and PT pulses palpable with adequate capillary fill time to digits. Edema: Patient does have chronic venous insufficiency with bilateral lower extremity edema. Tubigrip compression is applied. Once wound is closed she will return to her prescription compression stockings. Infection: No signs of infection. Pain: May take [id number] Tylenol for discomfort Host factors: Chronic venous insufficiency, autoimmune disease, pyoderma gangrenosum I answered all the patient's questions. To return to the wound healing center in 2 weeks or call sooner if the patient has any questions or concerns. Will RTC for continued wound healing and postoperative care s/p primary repair of split tear of peroneal brevis tendon, primary repair of anterior tibiofibular ligament (AITFL), and syndesmotic repair via tight rope right lower extremity.
--- NOTE | 2024-02-09 09:23 | ART_ITS ---
Reason For Study: Wound Procedure A bilateral lower extremity continuous wave Doppler with analog waveform analysis,segmental pressures,and ankle brachial indexes without exercise. Left Segmental Pressures Left brachial= 139mmHg. Left posterior tibial artery = 163mmHg. Left dorsalis pedis artery = 146mmHg. Left digit = 130 mmHg. The left dorsalis pedis waveforms are triphasic. The left posterior tibial artery waveforms are triphasic. Right Segmental Pressures Right brachial= 134mmHg. Right posterior tibial artery = 169mmHg. Right dorsalis pedis artery = 161mmHg. Right digit = 124 mmHg. The right dorsalis pedis waveforms are biphasic. The right posterior tibial artery waveforms are triphasic. Indices The right ankle brachial index by the dorsalis pedis is 1.16. The right ankle brachial index by the posterior tibial artery is 1.22. The right digital-brachial index is 0.89. The left ankle brachial index by the dorsalis pedis is 1.05. The left ankle brachial index by the posterior tibial artery is 1.17. The left digital-brachial index is 0.94. VL/Lower Ext Art Exam w/o Exercis Interpretation Summary Triphasic and biphasic Doppler waveforms are noted at ankle level on the right. Triphasic Doppler waveforms are noted at ankle level on the left. Pulse-volume recordings appear satisfactory at all levels bilaterally. Resting ankle-brachial indices are normal bilaterally. Digi cesar-brachial indices are normal bilaterally. There is no evidence of significant arterial occlusive disease in the lower ext remities bilaterally. Ordering Physician: Rick Cummins Referring Physician: Almaz Rosas M.D. Performed By: Freida Valenzuela RVT
--- NOTE | 2024-02-09 09:23 | VDLE_ITS ---
Reason For Study: Wound RIGHT LEFT CFV is compressible, spontaneous, phasic, CFV is compressible, spontaneous, phasic, competent and demonstrates normal competent, and demonstrates normal augmentation. augmentation. FV is compressible, spontaneous, phasic, FV is compressible, spontaneous, phasic, competent and demonstrates normal competent and demonstrates normal augmentation. augmentation. POP V is compressible, spontaneous, phasic, POP V is compressible, spontaneous, phasic, competent and demonstrates normal competent and demonstrates normal augmentation. augmentation. T/P Trunk is compressible. T/P Trunk is compressible. PTV is compressible. PTV is compressible. RT PerV is compressible. LT PerV is compressible. SFJ is INCOMPETENT and measures 0.95 cm. SFJ is competent and measures 1.16 cm. GSV proximal thigh measures 0.90 x 0.88 cm. GSV proximal thigh measures 0.85 x 0.82 cm. GSV at knee measures 0.70 x 0.71 cm. GSV at knee measures 0.67 x 0.72 cm. GSV INCOMPETENT throughout for greater than GSV INCOMPETENT throughout for greater than 0.5 seconds. 0.5 seconds. ASV at knee is INCOMPETENT for greater than ASV proximal calf is INCOMPETENT for greater 0.5 seconds and measures 0.24 x 0.26 cm. than 0.5 seconds and measures 0.37 x 0.38 cm. ASV proximal calf is INCOMPETENT for greater ASV 2 prox calf is INCOMPETENT for greater than 0.5 seconds and measures 0.48 x 0.48 cm. than 0.5 seconds and measures 0.34 x 0.32 cm. ASV 2 prox calf is INCOMPETENT for greater wraps anteriorly. than 0.5 seconds and measures 0.30 x 0.30 cm. SSV proximal calf is INCOMPETENT for greater ASV mid calf, off of ASV prox calf, is than 0.5 seconds and measures 0.36 x 0.33 cm. INCOMPETENT for greater than 0.5 seconds and measures 0.38 x 0.34 cm. Wraps posteriorly. ASV 2 mid calf, off of ASV prox calf is INCOMPETENT for greater than 0.5 seconds and measures 0.36 x 0.34 cm. Wraps anteriorly. SSV proximal calf is competent and measures 0.31 x 0.33 cm. Procedure This is a venous duplex using B-mode, color flow and spectral Doppler. Exam performed in department. Patient was scanned in reverse Trendelenburg position during reflux assessment. A preliminary report was called and/or faxed to [facility]. VL/Venous Duplex US - James Extrem Interpretation Summary Deep veins of the lower extremities are bilaterally patent and compressible seg mentally. There is no evidence of deep vein thrombosis on either side. Valvular competence appears in tact within the proximal deep venous systems bilaterally. The great saphenous veins appear bila terally patent and compressible segmentally. The right sapheno-femoral junction is incompetent . T he left sapheno- femoral junction is competent . Segmental valvular incompetence is noted within the great saphenous veins bilaterally. The right small saphenous vein is patent and competent. The left small saphenous vein is patent and incompetent. Multiple incompetent accessory saphenous veins are noted in the right lower extremity, located at the knee, in the proximal calf (2), and in th e mid-calf (2). Two incompetent accessory saphenous veins are noted in the left proximal calf. Ordering Physician: Rick Cummins Referring Physician: Almaz Rosas M.D. Performed By: Freida Valenzuela RVT
[2024-02-11 11:12] VITALS: BP 160/87; PULSE 76; RESP 16; TEMP 36.4
--- NOTE | 2024-02-11 12:52 | PN.PCM_ITS ---
History of Present Illness Date of Service: 02/11/24 Chief Complaint: Surgical wound dehiscence right leg History of Wound: Patient is a 38-year-old female who subsequently developed a surgical wound dehiscence of her right lateral lower extremity. She previously underwent surgery for primary repair of split tear of the peroneus brevis tendon, primary repair of anterior tibiofibular ligament (AITFL), and syndesmotic reduction via tight rope of the right lower extremity on 04/24/2023. Following removal of sutures she developed surgical wound dehiscence secondary to continued lower extremity swelling via chronic venous insufficiency. She did undergo debridement in office 06/05/2023 and Deidre was applied at this time with Tubigrip compression. She has worn compression stockings to manage lower extremity swelling prior to surgical intervention. Patient is also noted to have autoimmune disease and is managed by rheumatology with medication and did resume all medications 2 weeks post operative per rheumatology. She was referred to the wound care center for continued wound healing. She has been applying Deidre and dry sterile dressings daily. She denies N/V/F/chills. Denies further complaints. Subjective Subjective Patient is a 38-year-old female who presents to the wound care center today for f/u of a right lateral leg surgical dehiscence s/p repair of split tear of peroneal brevis tendon, AITFL ligament repair, and syndesmotic repair of the right ankle. She reports she is continuing to walk in the surgical shoe without difficulty. Continues to follow with dermatology and following instructions for dressing changes daily. Continues to follow their treatment plan. She did obtain the Vascular studies today and is also here to discuss results. States steroid injection did help at last visit and she is noticing the wounds are decreasing in size. She denies constitutional symptoms today. Denies further complaints today. Objective Data Objective Data Vital Signs: Vital Signs Temp Pulse Resp BP O2 Del Method 97.6 F L 76 16 160/87 H Room Air 02/11/24 11:12 02/11/24 11:12 02/11/24 11:12 02/11/24 11:12 02/11/24 11:12 Oxygen Delivery Method Room Air Radiography Diagnostic Testing: Radiology Impression Extremity Arterial Study 02/09/24 09:23 Interpretation Summary Triphasic and biphasic Doppler waveforms are noted at ankle level on the right. Triphasic Doppler waveforms are noted at ankle level on the left. Pulse-volume recordings appear satisfactory at all levels bilaterally. Resting ankle-brachial indices are normal bilaterally. Digital-brachial indices are normal bilaterally. There is no evidence of significant arterial occlusive disease in the lower extremities bilaterally. Ordering Physician: Rick Cummins Referring Physician: Almaz Rosas M.D. Performed By: Freida Valenzuela RVT Venous Doppler Study 02/09/24 09:23 Interpretation Summary Deep veins of the lower extremities are bilaterally patent and compressible segmentally. There is no evidence of deep vein thrombosis on either side. Valvular competence appears intact within the proximal deep venous systems bilaterally. The great saphenous veins appear bilaterally patent and compressible segmentally. The right sapheno-femoral junction is incompetent . The left sapheno- femoral junction is competent . Segmental valvular incompetence is noted within the great saphenous veins bilaterally. The right small saphenous vein is patent and competent. The left small saphenous vein is patent and incompetent. Multiple incompetent accessory saphenous veins are noted in the right lower extremity, located at the knee, in the proximal calf (2), and in the mid-calf (2). Two incompetent accessory saphenous veins are noted in the left proximal calf. Ordering Physician: Rick Cummins Referring Physician: Almaz Rosas M.D. Performed By: Freida Valenzuela RVT Physical Exam Const alert, oriented x3 and no apparent distress General Appearance: cooperative HEENT normocephalic Eyes General Eye: normal appearance of both eyes Neck General: normal visual inspection Lymph Lymphatic: no lymphadenopathy noted and no lymphedema noted Resp normal respiratory effort Cardio regular rate and regular rhythm Extremity normal capillary refill, no joint enlargement and no calf tenderness Extremity Narrative: Vascular DP and PT pulses palpable bilateral. Capillary fill time less than 3 seconds to digits bilateral. Normal temperature gradient. There is hair growth present to lower extremity and digits. Dermatological: There is bilateral lower extremity edema secondary to chronic venous stasis with some hemosiderin deposition noted about the right lower extremity. The surgical dehiscence of the proximal incision on the right lower extremity with subsequent ulceration had reopened with fibrogranular layer. Surrounding skin does have resolving rubor secondary to chronic venous stasis in addition to autoimmune disease and lipodermatosclerosis. No signs of infection. Distal aspect of the incision right lateral leg is a well-healed cicatrix. Anterior lateral leg demonstrates well-healed cicatrix. No signs of infection. Medial ankle wound secondary to autoimmune response/lipodermatosclerosis with rubor noted with some tenderness to palpation. - Improving ulcerations with use of topical tacrolimus ointment/timolol drops. On 08/28/2023 she demonstrated worsening of the medial and lateral ulcerative sites with deep purple violaceous border and hypertrophy of the wound bed and was started on oral steroid for possible pyoderma gangrenosum. She returned again on 09/03/2023 following oral steroid with noted improvement in tissue color surrounding the ulcerative sites and decreasing hypertrophy of the wound bed tissue. Pain also noted to be improving following oral steroid. Debridement was stopped at this time. Musculoskeletal: Muscle strength 5 of 5 age-appropriate. No pain to palpation about the lateral leg of the right lower extremity. Skin no rashes or lesions noted, skin turgor normal and no jaundice Neuro moves all extremities Debridement Note Debridement Note No debridement was completed: No debridement was completed today Post-Debridement Measurements and Additional Note: Post-Debridement Measurements/Treatment WC - Nurse 1 - General Ulcer Assessment Start: 01/28/24 11:11 Freq: Status: Active Protocol: LOWEXT Activity Type Activity Date Activity User E-sign Co-sign Detail Recorded Client Recorded Date Recorded By Document 01/28/24 11:11 DL [id number] 01/28/24 11:18 DL Document 02/11/24 11:12 KW [id number] 02/11/24 11:17 KW 01/28/24 02/11/24 11:11 11:12 - Today's Visit Information Type of service Follow-up Visit Follow-up Visit (Physician/SPORTS CENTRE MANAGER (Physician/SPORTS CENTRE MANAGER ) ) Arrival Mode Ambulatory Ambulatory, Other Transfer Assistance None Patient Identification Verified (Name & Yes Yes ) Patient Requires Transmission-Based No Precautions Vital Signs Temperature (97.8 F-99.1 F) 96.9 F L 97.6 F L Temperature Source Temporal Temporal Pulse Rate (60-100) 89 76 Pulse Location Apical Monitor Respiratory Rate (12-18) 20 H 16 Respiratory rate source Observation Observation Oxygen Delivery Method Room Air Blood Pressure (90/60-120/80) 164/97 H 160/87 H Blood Pressure Mean (mm Hg) 119 111 Source Monitor Monitor Position Semi-Fowlers Blood Pressure Location Left Arm History Since Last Visit- (Skip if this is Patient's initial visit) Have you changed medications since your No No last visit? Any new allergies or adverse reactions No No Had a fall/change in ADL's that may No No increase risk of falls Signs or symptoms of abuse and/or No No neglect since last visit Have you been in the hospital since your No No last visit? Has dressing in place as prescribed Yes Yes Has compression in place as prescribed Yes Yes Has offloadiing in place as prescribed Yes N/A Experienced any changes in pain level or No No management Left Footwear Regular Shoe Right Footwear Surgical Shoe with pressure relief insole Pain Scale: 0-10 Numeric Is Patient Pain Free? Yes Yes - Nurse 1 - General Ulcer Measurement Start: 01/28/24 11:11 Freq: Status: Active Protocol: Activity Type Activity Date Activity User E-sign Co-sign Detail Recorded Client Recorded Date Recorded By Document 01/28/24 11:11 DL 10.10.25.7 01/28/24 11:18 DL Document 02/11/24 11:12 KW [id number] 02/11/24 11:17 01/28/24 02/11/24 11:11 11:12 Wound Center Nurse 1 #2 RT MED ANKLE -Current Size (cm) - Length 0.8 1.6 -Current Size (cm) - Width 0.7 0.9 -Current Size (cm) - Depth 0.1 0.3 -Total Square Cm 0.56 1.44 -Exudate Amt Small Small -Exudate Type Serosanguineous Serosanguineous -Wound Margin Distinct, Distinct, Outline Outline Attached Attached -Granulation Amt Small (1-33%) Large (67-100%) -Granulation Quality [place] Red -Necrosis Amt Small (1-33%) Small (1-33%) -Necrotic Tissue Type Adherent Slough Adherent Slough -Structure Exposed N/A -Texture (Meghan-wound Skin Appearance) Scarring Assessed -Moisture (Meghan-wound Skin Appearance) No Abnormality Assessed -Color (Meghan-wound Skin Appearance) Hemosiderin Assessed Staining -Temperature (Meghan-wound Skin No Abnormality No Abnormality Appearance) (Pt Warm) (Pt Warm) -Tenderness on Palpation (Meghan-wound No Skin Appearance) -Ulcer Cleansing Rinsed/ Rinsed/ Irrigated with Irrigated with Saline Saline -Foul Odor after Cleansing No No -Anesthetic Used 5% Lidocaine Gel #1 RT LAT ANKLE CLUSTER -Current Size (cm) - Length 2 1.8 -Current Size (cm) - Width 0.6 0.5 -Current Size (cm) - Depth 0.1 0.2 -Total Square Cm 1.2 0.90 -Exudate Amt Small -Exudate Type Serosanguineous -Wound Margin Distinct, Outline Attached -Granulation Amt Small (1-33%) Large (67-100%) -Granulation Quality Pale Red -Necrosis Amt None Present (0 %) -Necrotic Tissue Type Adherent Slough -Structure Exposed N/A -Texture (Meghan-wound Skin Appearance) Scarring Assessed -Moisture (Meghan-wound Skin Appearance) No Abnormality Assessed -Color (Meghan-wound Skin Appearance) Hemosiderin Assessed Staining -Temperature (Meghan-wound Skin No Abnormality Appearance) (Pt Warm) -Tenderness on Palpation (Meghan-wound Yes Skin Appearance) -Ulcer Cleansing Rinsed/ Irrigated with Saline -Foul Odor after Cleansing No -Anesthetic Used 5% Lidocaine Gel Right Calf (cm) 42 46 Right Ankle (cm) 27.5 28.3 WC - Nurse 2 - General Ulcer CM Notes Start: 01/28/24 11:11 Freq: Status: Active Protocol: Activity Type Activity Date Activity User E-sign Co-sign Detail Recorded Client Recorded Date Recorded By Document 01/28/24 11:55 JF 000 01/28/24 11:59 JF Document 02/11/24 11:28 [facility] [id number] 02/11/24 11:31 BMF 01/28/24 02/11/24 11:55 11:28 Wound Center Nurse 2 #2 RT MED ANKLE -Correct Patient No -Correct Side, Site, Position No -Correct Procedure No -Procedure Performed No -Post Debridement (cm) - Length 1 0.7 -Post Debridement (cm) - Width 1 0.7 -Post Debridement (cm) - Depth 0.1 0.1 -Total Square (Post) (cm) 1 0.49 -Area of Debridement (cm) - Length 1 0.7 -Area of Debridement (cm) - Width 1 0.7 -Total Square (Area) (cm) 1 0.49 -Tunneling No -Undermining/Tunneling No -Circular Undermining No -Wound/Ulcer Outcome Not Healed Not Healed -Bleeding Controlled with Pressure NA -Other Type of Bleeding Control Steroid injection -Treatment Response Procedure Tolerated Well -Offloading No -Debridement - Subq, 1st 20sq cm No -Wound Comment(s) 4ml of dexamethasone and 1ml of Kenalog injected to ulcers to periulcer area. #1 RT LAT ANKLE CLUSTER -Correct Patient No -Correct Side, Site, Position No -Correct Procedure No -Procedure Performed No -Post Debridement (cm) - Length 2.5 1.9 -Post Debridement (cm) - Width 0.8 0.6 -Post Debridement (cm) - Depth 0.1 0.1 -Total Square (Post) (cm) 2.00 1.14 -Area of Debridement (cm) - Length 2.5 1.9 -Area of Debridement (cm) - Width 0.8 0.6 -Total Square (Area) (cm) 2.00 1.14 -Wound/Ulcer Outcome Not Healed -Bleeding Controlled with Pressure NA -Debridement - Subq, 1st 20sq cm No Pain Scale: 0-10 Numeric Is Patient Pain Free? Yes Yes WC - Nurse 3 - General Ulcer D/C NN Start: 01/28/24 11:11 Freq: Status: Active Protocol: Activity Type Activity Date Activity User E-sign Co-sign Detail Recorded Client Recorded Date Recorded By Document 01/28/24 12:20 01/28/24 12:23 CP Document 02/11/24 11:40 KW [id number] 02/11/24 11:41 KW Edit Result 02/11/24 11:40 KW (1) [id number] 02/11/24 11:42 KW (1) Right - Tubular Bandage => Single Layer - Size of Tubigrip Used => Size F - Size F ($) => 1 01/28/24 02/11/24 12:20 11:40 Wound Care Center Nurse 3 #2 RT MED ANKLE -Ulcer Cleansing Rinsed/ Irrigated with Saline -Other Dressing adaptic -Primary Dressing Covered/Secured with Dry Gauze & Dry Gauze Roll Gauze #1 RT LAT ANKLE CLUSTER -Ulcer Cleansing Rinsed/ Irrigated with Saline -Primary Dressing Covered/Secured with Dry Gauze & Dry Gauze & Roll Gauze Roll Gauze, Secured with Tape -Other Covering adaptic Right -Compression Wrap Paddy Wrap -Tubular Bandage Single Layer Single Layer -Size of Tubigrip Used Size D Size F -Size D ($) 1 -Size F ($) 1 -Other paddy Pain Scale: 0-10 Numeric Is Patient Pain Free? 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 (4) Venous insufficiency (chronic) (peripheral): CODE(S): I87.2 - Venous insufficiency (chronic) (peripheral) (5) Lipodermatosclerosis of right lower extremity: CODE(S): M79.3 - Panniculitis, unspecified (6) Surgical wound dehiscence: CODE(S): T81.31XA - Disruption of external operation (surgical) wound, not elsewhere classified, initial encounter QUALIFIERS: Encounter type: subsequent encounter Qualified Code(s): T81.31XD - Disruption of external operation (surgical) wound, not elsewhere classified, subsequent encounter (7) Injury of peroneal tendon of right foot: CODE(S): S86.301A - Unspecified injury of muscle(s) and tendon(s) of peroneal muscle group at lower leg level, right leg, initial encounter QUALIFIERS: Encounter type: subsequent encounter Qualified Code(s): S86.301D - Unspecified injury of muscle(s) and tendon(s) of peroneal muscle group at lower leg level, right leg, subsequent encounter (8) Rupture of ligament of right ankle: CODE(S): S93.401A - Sprain of unspecified ligament of right ankle, initial encounter (9) Syndesmotic disruption of right ankle: CODE(S): S93.431A - Sprain of tibiofibular ligament of right ankle, initial encounter QUALIFIERS: Encounter type: subsequent encounter Qualified Code(s): S93.431D - Sprain of tibiofibular ligament of right ankle, subsequent encounter (10) Peroneal tendinitis, right leg: CODE(S): M76.71 - Peroneal tendinitis, right leg (11) Pain in right lower leg: CODE(S): M79.661 - Pain in right lower leg PLAN: Plan Patient seen and evaluated She presents today postoperatively s/p primary repair of split tear of peroneal brevis tendon, primary repair of anterior tibiofibular ligament (AITFL), and syndesmotic reduction via tight rope DOS 04/24/2023 Currently 10 months, 1 week out of surgery. States pain to her right lateral ankle is improved at surgical site but tenter frame back tender about ulceration sites, she is continuing weight bearing to the Right foot. States corticosteroid injection did help at previous visit. She reports incision did begin to open up on 06/02/2023. Dehiscence occurred 2 weeks following the removal of her sutures. States no pain along peroneal tendon or to eversion of the foot or at anterior lateral ankle overlying the ATIFL. Does have tenderness to the medial and lateral ankle ulceration secondary pyoderma gangrenosum. 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 She does have some occasional discomfort with the pyoderma. She has remained protective weightbearing to the right lower extremity with surgical shoe. Stiffness in the ankle has improved through continued use of therapy bands and home exercises. Discussed transition to supportive shoe gear once ulcerations have healed. Dressings were removed today and site was inspected. Anterior lateral ankle demonstrates well-healed cicatrix. Lateral ankle demonstrates well-healed cicatrix distally and proximally ulceration, which has reopened secondary to pyroderma gangrenosum. Medial ankle wound secondary to pyroderma gangrenosum. On 08/28/2023 she demonstrated worsening of the medial and lateral ulcerative sites with deep purple violaceous border and hypertrophy of the wound bed and was started on oral steroid for possible pyoderma gangrenosum. She returned again on 09/03/2023 following oral steroid with noted improvement in tissue color surrounding the ulcerative sites and decreasing hypertrophy of the wound bed ti ssue. Pain also noted to be improving following oral steroid at that time. Debridement was stopped and oral steroid was started continued for additional week following addition of topical Tacrolimus with plan to monitor response. Patient stated the pain improved following the use of the oral steroid and the steroid course was extended as I do feel she has pyoderma gangrenosum. 09/10/2023 she was prescribed topical tacrolimus 0.1% to apply the wound bed daily. Will continue the topical steroid which is working and she is demonstrating healing of ulcerative sites, will continue to monitor. Ulceration did not undergo debridement. Ulceration lateral leg remains reopened as of 12/03/23 and measures 1.9 cm x 0.6 cm x 0.1 cm. Medial ankle ulceration measures 0.7 cm x 0.7 cm x 0.1 cm. She underwent biopsy of medial site on 12/29/23. Her pyoderma gangrenosum has responded well to the topical tacrolimus, but I felt she would benefit from dermatology referral, which was made. Will continue applying timolol drops daily, per Dermatology. Compression via Tubigrip and PADDY wrap applied to the lower extremity. She was also encouraged to elevate lower extremity at all times of rest for edema control. Referral to dermatology on 12/10/23 for additional treatments. She had first appointment with dermatology on 12/29/2023. She reports a biopsy was performed. I have discussed biposy and treatment personally with Dr. Moralez. Dermatology wanted her to stop applying topical tacrolimus and apply timolol drops with 2 drops per wound twice a day and continue with compression stockings as they feel PG has settled down. Discussed corticosteroid injection with dermatology and they feel this is appropriate. Corticosteroid injection #1 performed 01/28/2024. Coricosteriod injection #2 performed 02/11/24 consisting of 4cc mixture of 1.5cc of 1% Lidocaine plain, 1.5cc dexamethasone and 1 cc Kenalog 10 administered to the lateral wound and medial wound peripheral border following cleansing of area with 70% isopropyl alcohol. Patient tolerated the injection well. Discussed continuing timolol drops. There has been good decrease in size of the lateral ulceration and medial ulceration vs previous visit following injection. Patient is currently on immunosuppressant agents for autoimmune disease, continues follow with Rheumatology. Discussed adequate protein intake to aid in wound healing. She will continue Oscar supplementation. Discussed continuing range of motion exercises, working with resistance bands to increase lower extremity strength. Discussed as wound nears closure physical therapy may be implemented to improve strength and motion to the right lower extremity. Discussed transition to supportive shoe gear to the right lower extremity once ulcerations are healed. Her gait is noted to be much improved versus prior to surgical intervention. At this time overall prognosis is good but complicated due to surgical dehiscence/pyoderma gangrenosum, will continue timolol drops per derm. Will continue to follow with Dermatology. Venous studies were performed 07/09/2023, no evidence of DVT. Valvular competence appears intact within the proximal deep venous system bilaterally. Great saphenous vein appears bilaterally patent and compressible segmentally. Saphenofemoral junctions are bilaterally competent. There is segmental valvular incompetence noted in the great saphenous veins bilaterally, small saphenous veins patent and competent on the right and patent and incompetent on the left. There are several incompetent accessory saphenous veins and tributaries in the right lower extremity and 2 accessory saphenous veins of the left calf are incompetent. LEAS were ordered 01/14/24 at recommendation of Dermatology. LEAS obtained on 02/09/2024 and demonstrate triphasic and biphasic Doppler waveforms at the right ankle and triphasic Doppler waveforms left ankle. PVR satisfactory at all levels bilaterally. Resting LAINE normal bilaterally. Digital brachial index normal bilateral. No evidence of arterial occlusive disease. Discussed signs and symptoms of infection. Discussed with her if she notices increasing redness about the ulcerative site that moves up the leg, purulent drainage from the ulcerative site, increasing foul odor from the ulcerative site, or if she develops fever greater than 101 degree, develops nausea, vomiting, chills, these are signs of a progressing infection and she should report to the ED for IV antibiotics. She voices understanding of this today. The following work up and care recommendations were made: Dressing: Tacrolimus ointment vs Timolol drops, Adaptic, Dry sterile dressing. Change dressing daily Wash: Soap and water Tissue growth optimization: Topical tacrolimus vs Timolol drops Offload: To transition to full weightbearing to the right lower extremity in supportive shoe gear. foot. Patient was previously in CAM boot until surgical wound dehiscence. Transitioned back to surgical shoe to allow for decreased pressure at the wound site on the leg. Vascular: DP and PT pulses palpable with adequate capillary fill time to digits. Edema: Patient does have chronic venous insufficiency with bilateral lower extremity edema. Tubigrip compression is applied. Once wound is closed she will return to her prescription compression stockings. Infection: No signs of infection. Pain: May take [id number] Tylenol for discomfort Host factors: Chronic venous insufficiency, autoimmune disease, pyoderma gangrenosum I answered all the patient's questions. To return to the wound healing center in 2 weeks or call sooner if the patient has any questions or concerns. Will RTC for continued wound healing and postoperative care s/p primary repair of split tear of peroneal brevis tendon, primary repair of anterior tibiofibular ligament (AITFL), and syndesmotic repair via tight rope right lower extremity.
== END 2024-02-20 23:59 | disposition home or self-care (01) ==
LOC: WC 11:00
PROVIDERS: PCP Internal Medicine; Referring Provider Student in an Organized Health Care Education/Training Program; Visit Provider Student in an Organized Health Care Education/Training Program
DX: L88 Pyoderma gangrenosum (principal); L97.212 Non-pressure chronic ulcer of right calf with fat layer exposed; L97.312 Non-pressure chronic ulcer of right 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; T81.31XA Disruption of external operation (surgical) wound, not elsewhere classified, initial encounter; Y83.8 Other surgical procedures as the cause of abnormal reaction of the patient, or of later complication, without mention of misadventure at the time of the procedure; I87.2 Venous insufficiency (chronic) (peripheral); R60.0 Localized edema; I73.9 Peripheral vascular disease, unspecified; M79.3 Panniculitis, unspecified; Z79.82 Long term (current) use of aspirin; Z79.899 Other long term (current) drug therapy
CPT/HCPCS: 93923; 93970; 99213; 99214; G0463

== ENCOUNTER 2024-03-10 11:15 | Outpatient (RCR) | payer MEDICARE, MEDICAID, SELFPAY ==
[2024-02-21 00:51] VITALS: BP 153/78; PULSE 98; RESP 18; TEMP 36.6
[2024-02-25 11:17] VITALS: BP 173/97; PULSE 73; RESP 18; TEMP 36.1
--- NOTE | 2024-02-25 13:05 | PN.PCM_ITS ---
History of Present Illness Date of Service: 02/25/24 Chief Complaint: Surgical wound dehiscence right leg History of Wound: Patient is a 38-year-old female who subsequently developed a surgical wound dehiscence of her right lateral lower extremity. She previously underwent surgery for primary repair of split tear of the peroneus brevis tendon, primary repair of anterior tibiofibular ligament (AITFL), and syndesmotic reduction via tight rope of the right lower extremity on 04/24/2023. Following removal of sutures she developed surgical wound dehiscence secondary to continued lower extremity swelling via chronic venous insufficiency. She did undergo debridement in office 06/05/2023 and Deidre was applied at this time with Tubigrip compression. She has worn compression stockings to manage lower extremity swelling prior to surgical intervention. Patient is also noted to have autoimmune disease and is managed by rheumatology with medication and did resume all medications 2 weeks post operative per rheumatology. She was referred to the wound care center for continued wound healing. She has been applying Deidre and dry sterile dressings daily. She denies N/V/F/chills. Denies further complaints. Subjective Subjective Patient is a 38-year-old female who presents to the wound care center today for f/u of a right lateral leg surgical dehiscence s/p repair of split tear of peroneal brevis tendon, AITFL ligament repair, and syndesmotic repair of the right ankle. She reports she is continuing to walk in the surgical shoe without difficulty. Continues to follow with dermatology and following instructions for dressing changes daily. Continues to follow their treatment plan. States steroid injection did help at last visit and she is noticing the wounds are continuing to decrease in size. Reports starting Humira yesterday. She denies constitutional symptoms today. Denies further complaints today. Objective Data Objective Data Vital Signs: Vital Signs Temp Pulse Resp BP 96.9 F L 73 18 173/97 H 02/25/24 11:17 02/25/24 11:17 02/25/24 11:17 02/25/24 11:17 Physical Exam Const alert, oriented x3 and no apparent distress General Appearance: cooperative HEENT normocephalic Eyes General Eye: normal appearance of both eyes Neck General: normal visual inspection Lymph Lymphatic: no lymphadenopathy noted and no lymphedema noted Resp normal respiratory effort Cardio regular rate and regular rhythm Extremity normal capillary refill, no joint enlargement, no calf tenderness and no pedal edema Extremity Narrative: Vascular DP and PT pulses palpable bilateral. Capillary fill time less than 3 seconds to digits bilateral. Normal temperature gradient. There is hair growth present to lower extremity and digits. Dermatological: There is bilateral lower extremity edema secondary to chronic venous stasis with some hemosiderin deposition noted about the right lower extremity. The surgical dehiscence of the proximal incision on the right lower extremity with subsequent ulceration had reopened with fibrogranular layer. Surrounding skin does have resolving rubor secondary to chronic venous stasis in addition to autoimmune disease and lipodermatosclerosis. No signs of infection. Distal aspect of the incision right lateral leg is a well-healed cicatrix. Anterior lateral leg demonstrates well-healed cicatrix. No signs of infection. Medial ankle wound secondary to autoimmune response/lipodermatosclerosis with rubor noted with some tenderness to palpation. - Improving ulcerations with use of topical clobetasol ointment/timolol drops. On 08/28/2023 she demonstrated worsening of the medial and lateral ulcerative sites with deep purple violaceous border and hypertrophy of the wound bed and was started on oral steroid for possible pyoderma gangrenosum. She returned again on 09/03/2023 following oral steroid with noted improvement in tissue color surrounding the ulcerative sites and decreasing hypertrophy of the wound bed tissue. Pain also noted to be improving following oral steroid. Debridement was stopped at this time. Musculoskeletal: Muscle strength 5 of 5 age-appropriate. No pain to palpation about the lateral leg of the right lower extremity. Skin no rashes or lesions noted, skin turgor normal and no jaundice Neuro moves all extremities Debridement Note Debridement Note No debridement was completed: No debridement was completed today Post-Debridement Measurements and Additional Note: Post-Debridement Measurements/Treatment - Nurse 1 - General Ulcer Assessment Start: 02/25/24 11:17 Freq: Status: Active Protocol: LAURIE Activity Type Activity Date Activity User E-sign Co-sign Detail Recorded Client Recorded Date Recorded By Document 02/25/24 11:17 MARIA LUISA [id number] 02/25/24 11:28 MARIA LUISA 02/25/24 11:17 - Today's Visit Information Type of service Follow-up Visit (Physician/BLIND CLEANER ) Arrival Mode Ambulatory, Walker Patient Identification Verified (Name & Yes ) Patient Requires Transmission-Based No Precautions Vital Signs Temperature (97.8 F-99.1 F) 96.9 F L Temperature Source Temporal Pulse Rate (60-100) 73 Pulse Location Monitor Respiratory Rate (12-18) 18 Respiratory rate source Observation Blood Pressure (90/60-120/80) 173/97 H Blood Pressure Mean (mm Hg) 122 Source Monitor Position Semi-Fowlers Blood Pressure Location Right Forearm History Since Last Visit- (Skip if this is Patient's initial visit) Have you changed medications since your No last visit? Any new allergies or adverse reactions No Had a fall/change in ADL's that may No increase risk of falls Signs or symptoms of abuse and/or No neglect since last visit Have you been in the hospital since your No last visit? Has dressing in place as prescribed Yes Has compression in place as prescribed Yes Has offloadiing in place as prescribed Yes Experienced any changes in pain level or No management Left Footwear Regular Shoe Right Footwear Surgical Shoe with pressure relief insole Pain Scale: 0-10 Numeric Is Patient Pain Free? Yes WC - Nurse 1 - General Ulcer Measurement Start: 02/25/24 11:17 Freq: Status: Active Protocol: Activity Type Activity Date Activity User E-sign Co-sign Detail Recorded Client Recorded Date Recorded By Document 02/25/24 11:17 MARIA LUISA [id number] 02/25/24 11:28 MARIA LUISA 02/25/24 11:17 Wound Center Nurse 1 #2 RT MED ANKLE -Combined with other wound No -Current Size (cm) - Length 0.7 -Current Size (cm) - Width 0.3 -Current Size (cm) - Depth 0.2 -Total Square Cm 0.21 -Photo Taken Yes -Epithelialization Small 1-33% -Tunneling No -Undermining/Tunneling No -Circular Undermining No -Exudate Amt Small -Exudate Type Serosanguineous -Wound Margin Flat & Intact -Granulation Amt Medium (34-66%) -Granulation Quality Red -Slough/Fibrin Yes -Necrosis Amt Small (1-33%) -Necrotic Tissue Type Adherent Slough -Structure Exposed N/A -Texture (Meghan-wound Skin Appearance) Assessed, Localized Edema -Moisture (Meghan-wound Skin Appearance) Assessed,Dry/ Scaly -Color (Meghan-wound Skin Appearance) Assessed -Temperature (Meghan-wound Skin No Abnormality Appearance) (Pt Warm) -Tenderness on Palpation (Meghan-wound No Skin Appearance) -Ulcer Cleansing Rinsed/ Irrigated with Saline -Foul Odor after Cleansing No -Anesthetic Used 5% Lidocaine Gel #1 RT LAT ANKLE CLUSTER -Combined with other wound No -Current Size (cm) - Length 1.7 -Current Size (cm) - Width 0.3 -Current Size (cm) - Depth 0.2 -Total Square Cm 0.51 -Photo Taken Yes -Epithelialization Small 1-33% -Tunneling No -Undermining/Tunneling No -Circular Undermining No -Exudate Amt Small -Exudate Type Serosanguineous -Wound Margin Flat & Intact -Granulation Amt Small (1-33%) -Granulation Quality [place] -Slough/Fibrin Yes -Necrosis Amt Medium (34-66%) -Necrotic Tissue Type Adherent Slough -Structure Exposed N/A -Texture (Meghan-wound Skin Appearance) Assessed, Localized Edema -Moisture (Meghan-wound Skin Appearance) Assessed,Dry/ Scaly -Color (Meghan-wound Skin Appearance) Assessed -Temperature (Meghan-wound Skin No Abnormality Appearance) (Pt Warm) -Tenderness on Palpation (Meghan-wound No Skin Appearance) -Ulcer Cleansing Rinsed/ Irrigated with Saline -Foul Odor after Cleansing No -Anesthetic Used 5% Lidocaine Gel Lower Limb Edema Present Yes Right Calf (cm) 42.7 Right Ankle (cm) 28.2 WC - Nurse 2 - General Ulcer CM Notes Start: 02/25/24 11:17 Freq: Status: Active Protocol: Activity Type Activity Date Activity User E-sign Co-sign Detail Recorded Client Recorded Date Recorded By Document 02/25/24 11:31 [facility] [id number] 02/25/24 11:33 [facility] 02/25/24 11:31 Wound Center Nurse 2 #2 RT MED ANKLE -Post Debridement (cm) - Length 0.3 -Post Debridement (cm) - Width 0.4 -Post Debridement (cm) - Depth 0.1 -Total Square (Post) (cm) 0.12 -Area of Debridement (cm) - Length 0.3 -Area of Debridement (cm) - Width 0.4 -Total Square (Area) (cm) 0.12 -Wound/Ulcer Outcome Not Healed -Bleeding Controlled with NA #1 RT LAT ANKLE CLUSTER -Post Debridement (cm) - Length 1.5 -Post Debridement (cm) - Width 0.3 -Post Debridement (cm) - Depth 0.1 -Total Square (Post) (cm) 0.45 -Area of Debridement (cm) - Length 1.5 -Area of Debridement (cm) - Width 0.3 -Total Square (Area) (cm) 0.45 -Wound/Ulcer Outcome Not Healed -Bleeding Controlled with NA Pain Scale: 0-10 Numeric Is Patient Pain Free? Yes WC - Nurse 3 - General Ulcer D/C NN Start: 02/25/24 11:17 Freq: Status: Active Protocol: Activity Type Activity Date Activity User E-sign Co-sign Detail Recorded Client Recorded Date Recorded By Document 02/25/24 11:50 KW [id number] 02/25/24 11:51 KW 02/25/24 11:50 Wound Care Center Nurse 3 #2 RT MED ANKLE -Other Dressing pt timolol cream -Primary Dressing Covered/Secured with Dry Gauze & Roll Gauze, Secured with Tape #1 RT LAT ANKLE CLUSTER -Other Dressing cream -Primary Dressing Covered/Secured with Dry Gauze Right -Compression Wrap Paddy Wrap -Tubular Bandage Single Layer -Size of Tubigrip Used Size D -Size D ($) 1 Pain Scale: 0-10 Numeric Is Patient Pain Free? 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 (3) Pyoderma gangrenosum: CODE(S): L88 - Pyoderma gangrenosum (4) Lipodermatosclerosis of right lower extremity: CODE(S): M79.3 - Panniculitis, unspecified (5) Injury of peroneal tendon of right foot: CODE(S): S86.301A - Unspecified injury of muscle(s) and tendon(s) of peroneal muscle group at lower leg level, right leg, initial encounter QUALIFIERS: Encounter type: subsequent encounter Qualified Code(s): S86.301D - Unspecified injury of muscle(s) and tendon(s) of peroneal muscle group at lower leg level, right leg, subsequent encounter (6) Rupture of ligament of right ankle: CODE(S): S93.401A - Sprain of unspecified ligament of right ankle, initial encounter (7) Syndesmotic disruption of right ankle: CODE(S): S93.431A - Sprain of tibiofibular ligament of right ankle, initial encounter QUALIFIERS: Encounter type: subsequent encounter Qualified Code(s): S93.431D - Sprain of tibiofibular ligament of right ankle, subsequent encounter (8) Pain in right lower leg: CODE(S): M79.661 - Pain in right lower leg (9) Venous insufficiency (chronic) (peripheral): CODE(S): I87.2 - Venous insufficiency (chronic) (peripheral) (10) Surgical wound dehiscence: CODE(S): T81.31XA - Disruption of external operation (surgical) wound, not elsewhere classified, initial encounter QUALIFIERS: Encounter type: subsequent encounter Qualified Code(s): T81.31XD - Disruption of external operation (surgical) wound, not elsewhere classified, subsequent encounter PLAN: Plan Patient seen and evaluated She presents today postoperatively s/p primary repair of split tear of peroneal brevis tendon, primary repair of anterior tibiofibular ligament (AITFL), and syndesmotic reduction via tight rope DOS 04/24/2023 Currently 10 months, 3 weeks out of surgery. Denies pain to ankle but diver tender about ulceration sites, she is continuing weight bearing to the Right foot. States corticosteroid injection did help at previous visit. She reports incision did begin to open up on 06/02/2023. Dehiscence occurred 2 weeks following the removal of her sutures. States no pain along peroneal tendon or to eversion of the foot or at anterior lateral ankle overlying the ATIFL. Does have tenderness to the medial and lateral ankle ulceration secondary pyoderma gangrenosum. 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 She does have some occasional discomfort with the pyoderma. She has remained protective weightbearing to the right lower extremity with de paz rgical shoe. Stiffness in the ankle has improved through continued use of therapy bands and home exercises. Discussed transition to supportive shoe gear once ulcerations have healed. Dressings were removed today and site was inspected. Anterior lateral ankle demonstrates well-healed cicatrix. Lateral ankle demonstrates well-healed cicatrix distally and proximally ulceration, which has reopened secondary to pyroderma gangrenosum. Medial ankle wound secondary to pyroderma gangrenosum. On 08/28/2023 she demonstrated worsening of the medial and lateral ulcerative sites with deep purple violaceous border and hypertrophy of the wound bed and was started on oral steroid for possible pyoderma gangrenosum. She returned again on 09/03/2023 following oral steroid with noted improvement in tissue color surrounding the ulcerative sites and decreasing hypertrophy of the wound bed tissue. Pain also noted to be improving following oral steroid at that time. Debridement was stopped and oral steroid was started continued for additional week following addition of topical Tacrolimus with plan to monitor response. Patient stated the pain improved following the use of the oral steroid and the steroid course was extended as I do feel she has pyoderma gangrenosum. 09/10/2023 she was prescribed topical tacrolimus 0.1% to apply the wound bed daily. Will continue the topical steroid which is working and she is demonstrating healing of ulcerative sites, will continue to monitor. Ulceration did not undergo debridement. Ulceration lateral leg measures 1.5 cm x 0.3 cm x 0.1 cm. Medial ankle ulceration measures 0.3 cm x 0.4 cm x 0.1 cm. She underwent biopsy of medial site on 12/29/23. Her pyoderma gangrenosum had responded well to the topical tacrolimus, but I felt she would benefit from dermatology referral, which was made. Will continue applying timolol drops daily, with use of clobetasol topical per Dermatology. Compression via Tubigrip and PADDY wrap applied to the lower extremity. She was also encouraged to elevate lower extremity at all times of rest for edema control. Referral to dermatology on 12/10/23 for additional treatments. She had first appointment with dermatology on 12/29/2023. She reports a biopsy was performed. I have discussed biposy and treatment personally with Dr. Moralez. Dermatology wanted her to stop applying topical tacrolimus and apply timolol drops with 2 drops per wound twice a day and continue with compression stockings as they feel PG has settled down. Discussed corticosteroid injection with dermatology and they feel this is appropriate. Corticosteroid injection #1 performed 01/28/2024. Coricosteriod injection #2 performed 02/11/24. Ulceration sites have responded well to injection. Discussed continuing timolol drops and clobetasol topical. Dermatology has started Humira 02/24/2024. There has been good decrease in size of the lateral ulceration and medial ulceration vs previous visit following injection. Patient is currently on immunosuppressant agents for autoimmune disease, continues follow with Rheumatology. Discussed adequate protein intake to aid in wound healing. She will continue Oscar supplementation. Discussed continuing range of motion exercises, working with resistance bands to increase lower extremity strength. Discussed as wound nears closure physical therapy may be implemented to improve strength and motion to the right lower extremity. Discussed transition to supportive shoe gear to the right lower extremity once ulcerations are healed. Her gait is noted to be much improved versus prior to surgical intervention. At this time overall prognosis is good but complicated due to surgical dehiscence/pyoderma gangrenosum, will continue timolol drops per derm. Will continue to follow with Dermatology. Venous studies were performed 07/09/2023, no evidence of DVT. Valvular competence appears intact within the proximal deep venous system bilaterally. Great saphenous vein appears bilaterally patent and compressible segmentally. Saphenofemoral junctions are bilaterally competent. There is segmental valvular incompetence noted in the great saphenous veins bilaterally, small saphenous veins patent and competent on the right and patent and incompetent on the left. There are several incompetent accessory saphenous veins and tributaries in the right lower extremity and 2 accessory saphenous veins of the left calf are incompetent. LEAS were ordered 01/14/24 at recommendation of Dermatology. LEAS obtained on 02/09/2024 and demonstrate triphasic and biphasic Doppler waveforms at the right ankle and triphasic Doppler waveforms left ankle. PVR satisfactory at all levels bilaterally. Resting LAINE normal bilaterally. Digital brachial index normal bilateral. No evidence of arterial occlusive disease. Discussed signs and symptoms of infection. Discussed with her if she notices increasing redness about the ulcerative site that moves up the leg, purulent drainage from the ulcerative site, increasing foul odor from the ulcerative site, or if she develops fever greater than 101 degree, develops nausea, vomiting, chills, these are signs of a progressing infection and she should report to the ED for IV antibiotics. She voices understanding of this today. The following work up and care recommendations were made: Dressing: Clobetasol ointment and timolol drops, Adaptic, Dry sterile dressing. Change dressing daily Wash: Soap and water Tissue growth optimization: Clobetasol ointment and timolol drops Offload: To transition to full weightbearing to the right lower extremity in supportive shoe gear. foot. Patient was previously in CAM boot until surgical wound dehiscence. Transitioned back to surgical shoe to allow for decreased pressure at the wound site on the leg. Vascular: DP and PT pulses palpable with adequate capillary fill time to digits. Edema: Patient does have chronic venous insufficiency with bilateral lower extremity edema. Tubigrip compression is applied. Once wound is closed she will return to her prescription compression stockings. Infection: No signs of infection. Pain: May take [id number] Tylenol for discomfort Host factors: Chronic venous insufficiency, autoimmune disease, pyoderma gangrenosum I answered all the patient's questions. To return to the wound healing center in 2 weeks or call sooner if the patient has any questions or concerns. Will RTC for continued wound healing and postoperative care s/p primary repair of split tear of peroneal brevis tendon, primary repair of anterior tibiofibular ligament (AITFL), and syndesmotic repair via tight rope right lower extremity.
--- NOTE | 2024-02-29 08:46 | WC ---
PHOTO 02/25/24 RIGHT MEDIAL ANKLE
--- NOTE | 2024-02-29 08:46 | WC ---
PHOTO 02/25/24 RIGHT MEDIAL ANKLE
--- NOTE | 2024-02-29 08:49 | WC ---
PHOTO 02/25/24 RIGHT LATERAL ANKLE
--- NOTE | 2024-02-29 08:49 | WC ---
PHOTO 02/25/24 RIGHT LATERAL ANKLE
[2024-03-10 11:14] VITALS: BP 153/70; PULSE 100; RESP 18; TEMP 36.1
--- NOTE | 2024-03-10 11:14 | PN.PCM_ITS ---
History of Present Illness Date of Service: 03/10/24 Chief Complaint: Surgical wound dehiscence right leg History of Wound: Patient is a 38-year-old female who subsequently developed a surgical wound dehiscence of her right lateral lower extremity. She previously underwent surgery for primary repair of split tear of the peroneus brevis tendon, primary repair of anterior tibiofibular ligament (AITFL), and syndesmotic reduction via tight rope of the right lower extremity on 04/24/2023. Following removal of sutures she developed surgical wound dehiscence secondary to continued lower extremity swelling via chronic venous insufficiency. She did undergo debridement in office 06/05/2023 and Deidre was applied at this time with Tubigrip compression. She has worn compression stockings to manage lower extremity swelling prior to surgical intervention. Patient is also noted to have autoimmune disease and is managed by rheumatology with medication and did resume all medications 2 weeks post operative per rheumatology. She was referred to the wound care center for continued wound healing. She has been applying Deidre and dry sterile dressings daily. She denies N/V/F/chills. Denies further complaints. Subjective Subjective Patient is a 38-year-old female who presents to the wound care center today for f/u of a right lateral leg surgical dehiscence and medial ankle ulceration s/p repair of split tear of peroneal brevis tendon, AITFL ligament repair, and syndesmotic repair of the right ankle. She reports she is continuing to walk in the surgical shoe without difficulty. Continues to follow with dermatology and following instructions for dressing changes daily. Will see Dermatology today. Continues to follow their treatment plan. States wounds are continuing to decrease in size. She did stop Humira last week due to developing rash on arms. She denies constitutional symptoms today. Denies further complaints today. Objective Data Objective Data Vital Signs: Vital Signs Temp Pulse Resp BP 96.9 F L 73 18 173/97 H 02/25/24 11:17 02/25/24 11:17 02/25/24 11:17 02/25/24 11:17 Physical Exam Const alert, oriented x3 and no apparent distress General Appearance: cooperative HEENT normocephalic Eyes General Eye: normal appearance of both eyes Neck General: normal visual inspection Lymph Lymphatic: no lymphadenopathy noted and no lymphedema noted Resp normal respiratory effort Cardio regular rate and regular rhythm Extremity normal capillary refill, no joint enlargement, no calf tenderness and no pedal edema Extremity Narrative: Vascular DP and PT pulses palpable bilateral. Capillary fill time less than 3 seconds to digits bilateral. Normal temperature gradient. There is hair growth present to lower extremity and digits. Dermatological: There is bilateral lower extremity edema secondary to chronic venous stasis with some hemosiderin deposition noted about the right lower extremity. The surgical dehiscence of the proximal incision on the right lower extremity with subsequent ulceration had reopened with fibrogranular layer. Surrounding skin does have resolving rubor secondary to chronic venous stasis in addition to autoimmune disease and lipodermatosclerosis. No signs of infection. Distal aspect of the incision right lateral leg is a well-healed cicatrix. Anterior lateral leg demonstrates well-healed cicatrix. No signs of infection. Medial ankle wound secondary to autoimmune response/lipodermatosclerosis with rubor noted with some tenderness to palpation. - Improving ulcerations with use of topical clobetasol ointment/timolol drops. On 08/28/2023 she demonstrated worsening of the medial and lateral ulcerative sites with deep purple violaceous border and hypertrophy of the wound bed and was started on oral steroid for possible pyoderma gangrenosum. She returned again on 09/03/2023 following oral steroid with noted improvement in tissue color surrounding the ulcerative sites and decreasing hypertrophy of the wound bed tissue. Pain also noted to be improving following oral steroid. Debridement was stopped at this time. Musculoskeletal: Muscle strength 5 of 5 age-appropriate. No pain to palpation about the lateral leg of the right lower extremity. Skin no rashes or lesions noted, skin turgor normal and no jaundice Neuro moves all extremities Debridement Note Debridement Note No debridement was completed: No debridement was completed today Post-Debridement Measurements and Additional Note: Post-Debridement Measurements/Treatment NEELA - Nurse 1 - General Ulcer Assessment Start: 02/25/24 11:17 Freq: Status: Active Protocol: LAURIE Activity Type Activity Date Activity User E-sign Co-sign Detail Recorded Client Recorded Date Recorded By Document 02/25/24 11:17 MARIA LUISA [id number] 02/25/24 11:28 MARIA LUISA 02/25/24 11:17 NEELA - Today's Visit Information Type of service Follow-up Visit (Physician/MANAGER STEEL ) Arrival Mode Ambulatory, Walker Patient Identification Verified (Name & Yes ) Patient Requires Transmission-Based No Precautions Vital Signs Temperature (97.8 F-99.1 F) 96.9 F L Temperature Source Temporal Pulse Rate (60-100) 73 Pulse Location Monitor Respiratory Rate (12-18) 18 Respiratory rate source Observation Blood Pressure (90/60-120/80) 173/97 H Blood Pressure Mean (mm Hg) 122 Source Monitor Position Semi-Fowlers Blood Pressure Location Right Forearm History Since Last Visit- (Skip if this is Patient's initial visit) Have you changed medications since your No last visit? Any new allergies or adverse reactions No Had a fall/change in ADL's that may No increase risk of falls Signs or symptoms of abuse and/or No neglect since last visit Have you been in the hospital since your No last visit? Has dressing in place as prescribed Yes Has compression in place as prescribed Yes Has offloadiing in place as prescribed Yes Experienced any changes in pain level or No management Left Footwear Regular Shoe Right Footwear Surgical Shoe with pressure relief insole Pain Scale: 0-10 Numeric Is Patient Pain Free? Yes - Nurse 1 - General Ulcer Measurement Start: 02/25/24 11:17 Freq: Status: Active Protocol: Activity Type Activity Date Activity User E-sign Co-sign Detail Recorded Client Recorded Date Recorded By Document 02/25/24 11:17 MARIA LUISA [id number] 02/25/24 11:28 MARIA LUISA 02/25/24 11:17 Wound Center Nurse 1 #2 RT MED ANKLE -Combined with other wound No -Current Size (cm) - Length 0.7 -Current Size (cm) - Width 0.3 -Current Size (cm) - Depth 0.2 -Total Square Cm 0.21 -Photo Taken Yes -Epithelialization Small 1-33% -Tunneling No -Undermining/Tunneling No -Circular Undermining No -Exudate Amt Small -Exudate Type Serosanguineous -Wound Margin Flat & Intact -Granulation Amt Medium (34-66%) -Granulation Quality Red -Slough/Fibrin Yes -Necrosis Amt Small (1-33%) -Necrotic Tissue Type Adherent Slough -Structure Exposed N/A -Texture (Meghan-wound Skin Appearance) Assessed, Localized Edema -Moisture (Meghan-wound Skin Appearance) Assessed,Dry/ Scaly -Color (Meghan-wound Skin Appearance) Assessed -Temperature (Meghan-wound Skin No Abnormality Appearance) (Pt Warm) -Tenderness on Palpation (Meghan-wound No Skin Appearance) -Ulcer Cleansing Rinsed/ Irrigated with Saline -Foul Odor after Cleansing No -Anesthetic Used 5% Lidocaine Gel #1 RT LAT ANKLE CLUSTER -Combined with other wound No -Current Size (cm) - Length 1.7 -Current Size (cm) - Width 0.3 -Current Size (cm) - Depth 0.2 -Total Square Cm 0.51 -Photo Taken Yes -Epithelialization Small 1-33% -Tunneling No -Undermining/Tunneling No -Circular Undermining No -Exudate Amt Small -Exudate Type Serosanguineous -Wound Margin Flat & Intact -Granulation Amt Small (1-33%) -Granulation Quality [place] -Slough/Fibrin Yes -Necrosis Amt Medium (34-66%) -Necrotic Tissue Type Adherent Slough -Structure Exposed N/A -Texture (Meghan-wound Skin Appearance) Assessed, Localized Edema -Moisture (Meghan-wound Skin Appearance) Assessed,Dry/ Scaly -Color (Meghan-wound Skin Appearance) Assessed -Temperature (Meghan-wound Skin No Abnormality Appearance) (Pt Warm) -Tenderness on Palpation (Meghan-wound No Skin Appearance) -Ulcer Cleansing Rinsed/ Irrigated with Saline -Foul Odor after Cleansing No -Anesthetic Used 5% Lidocaine Gel Lower Limb Edema Present Yes Right Calf (cm) 42.7 Right Ankle (cm) 28.2 WC - Nurse 2 - General Ulcer CM Notes Start: 02/25/24 11:17 Freq: Status: Active Protocol: Activity Type Activity Date Activity User E-sign Co-sign Detail Recorded Client Recorded Date Recorded By Document 02/25/24 11:31 [facility] [id number] 02/25/24 11:33 [facility] 02/25/24 11:31 Wound Center Nurse 2 #2 RT MED ANKLE -Post Debridement (cm) - Length 0.3 -Post Debridement (cm) - Width 0.4 -Post Debridement (cm) - Depth 0.1 -Total Square (Post) (cm) 0.12 -Area of Debridement (cm) - Length 0.3 -Area of Debridement (cm) - Width 0.4 -Total Square (Area) (cm) 0.12 -Wound/Ulcer Outcome Not Healed -Bleeding Controlled with NA #1 RT LAT ANKLE CLUSTER -Post Debridement (cm) - Length 1.5 -Post Debridement (cm) - Width 0.3 -Post Debridement (cm) - Depth 0.1 -Total Square (Post) (cm) 0.45 -Area of Debridement (cm) - Length 1.5 -Area of Debridement (cm) - Width 0.3 -Total Square (Area) (cm) 0.45 -Wound/Ulcer Outcome Not Healed -Bleeding Controlled with NA Pain Scale: 0-10 Numeric Is Patient Pain Free? Yes WC - Nurse 3 - General Ulcer D/C NN Start: 02/25/24 11:17 Freq: Status: Active Protocol: Activity Type Activity Date Activity User E-sign Co-sign Detail Recorded Client Recorded Date Recorded By Document 02/25/24 11:50 KW [id number] 02/25/24 11:51 KW 02/25/24 11:50 Wound Care Center Nurse 3 #2 RT MED ANKLE -Other Dressing pt timolol cream -Primary Dressing Covered/Secured with Dry Gauze & Roll Gauze, Secured with Tape #1 RT LAT ANKLE CLUSTER -Other Dressing cream -Primary Dressing Covered/Secured with Dry Gauze Right -Compression Wrap Paddy Wrap -Tubular Bandage Single Layer -Size of Tubigrip Used Size D -Size D ($) 1 Pain Scale: 0-10 Numeric Is Patient Pain Free? 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 (3) Pyoderma gangrenosum: CODE(S): L88 - Pyoderma gangrenosum (4) Lipodermatosclerosis of right lower extremity: CODE(S): M79.3 - Panniculitis, unspecified (5) Injury of peroneal tendon of right foot: CODE(S): S86.301A - Unspecified injury of muscle(s) and tendon(s) of peroneal muscle group at lower leg level, right leg, initial encounter QUALIFIERS: Encounter type: subsequent encounter Qualified Code(s): S86.301D - Unspecified injury of muscle(s) and tendon(s) of peroneal muscle group at lower leg level, right leg, subsequent encounter (6) Rupture of ligament of right ankle: CODE(S): S93.401A - Sprain of unspecified ligament of right ankle, initial encounter (7) Syndesmotic disruption of right ankle: CODE(S): S93.431A - Sprain of tibiofibular ligament of right ankle, initial encounter QUALIFIERS: Encounter type: subsequent encounter Qualified Code(s): S93.431D - Sprain of tibiofibular ligament of right ankle, subsequent encounter (8) Pain in right lower leg: CODE(S): M79.661 - Pain in right lower leg (9) Venous insufficiency (chronic) (peripheral): CODE(S): I87.2 - Venous insufficiency (chronic) (peripheral) (10) Surgical wound dehiscence: CODE(S): T81.31XA - Disruption of external operation (surgical) wound, not elsewhere classified, initial encounter QUALIFIERS: Encounter type: subsequent encounter Qualified Code(s): T81.31XD - Disruption of external operation (surgical) wound, not elsewhere classified, subsequent encounter PLAN: Plan Patient seen and evaluated She presents today postoperatively s/p primary repair of split tear of peroneal brevis tendon, primary repair of anterior tibiofibular ligament (AITFL), and syndesmotic reduction via tight rope DOS 04/24/2023 Currently 10 months, 2 weeks out of surgery. Denies pain to ankle but hydrogenation still operator about ulceration sites, she is continuing weight bearing to the Right foot. States corticosteroid injection did help at previous visit. She reports incision did begin to open up on 06/02/2023. Dehiscence occurred 2 weeks following the removal of her sutures. States no pain along peroneal tendon or to eversion of the foot or at anterior lateral ankle overlying the ATIFL. Does have tenderness to the medial and lateral ankle ulceration secondary pyoderma gangrenosum. 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 She does have some occasional discomfort with the pyoderma. She has remained protective weightbearing to the right lower extremity with surgical shoe. Stiffness in the ankle has improved through continued use of therapy bands and home exercises. Discussed transition to supportive shoe gear once ulcerations have healed. Dressings were removed today and site was inspected. Anterior lateral ankle demonstrates well-healed cicatrix. Lateral ankle demonstrates well-healed cicatrix distally and proximally ulceration, which has reopened secondary to pyroderma gangrenosum. Medial ankle wound secondary to pyroderma gangrenosum. On 08/28/2023 she demonstrated worsening of the medial and lateral ulcerative sites with deep purple violaceous border and hypertrophy of the wound bed and was started on oral steroid for possible pyoderma gangrenosum. She returned again on 09/03/2023 following oral steroid with noted improvement in tissue color surrounding the ulcerative sites and decreasing hypertrophy of the wound bed tissue. Pain also noted to be improving following oral steroid at that time. Debridement was stopped and oral steroid was started continued for additional week following addition of topical Tacrolimus with plan to monitor response. Patient stated the pain improved following the use of the oral steroid and the steroid course was extended as I do feel she has pyoderma gangrenosum. 09/10/2023 she was prescribed topical tacrolimus 0.1% to apply the wound bed daily. Will c ontinue the topical steroid which is working and she is demonstrating healing of ulcerative sites, will continue to monitor. Ulceration did not undergo debridement. Ulceration lateral leg measures 0.1 cm x 0.1 cm x 0.1 cm. Medial ankle ulceration measures 0.4 cm x 0.4 cm x 0.1 cm. She underwent biopsy of medial site on 12/29/23. Her pyoderma gangrenosum had responded well to the topical tacrolimus, but I felt she would benefit from dermatology referral, which was made. Will continue applying timolol drops daily, with use of clobetasol topical per Dermatology. Compression via Tubigrip and PADDY wrap applied to the lower extremity. She was also encouraged to elevate lower extremity at all times of rest for edema control. Referral to dermatology on 12/10/23 for additional treatments. She had first appointment with dermatology on 12/29/2023. She reports a biopsy was performed. I have discussed biposy and treatment personally with Dr. Moralez. Dermatology wanted her to stop applying topical tacrolimus and apply timolol drops with 2 drops per wound twice a day and continue with compression stockings as they feel PG has settled down. Discussed corticosteroid injection with dermatology and they feel this is appropriate. Corticosteroid injection #1 performed 01/28/2024. Coricosteriod injection #2 performed 02/11/24. Ulceration sites have responded well to injection. Discussed continuing timolol drops and clobetasol topical. Dermatology has started Humira 02/24/2024 but recently stopped due to developing rash. There has been good decrease in size of the lateral ulceration and medial ul ceration vs previous visit following injection. And sites continue to decrease following current treatment. Patient is currently on immunosuppressant agents for autoimmune disease, continues follow with Rheumatology. Discussed adequate protein intake to aid in wound healing. She will continue Oscar supplementation. Discussed continuing range of motion exercises, working with resistance bands to increase lower extremity strength. Discussed as wound nears closure physical therapy may be implemented to improve strength and motion to the right lower extremity. Discussed transition to supportive shoe gear to the right lower extremity once ulcerations are healed. Her gait is noted to be much improved versus prior to surgical intervention. At this time overall prognosis is good but complicated due to surgical dehiscence/pyoderma gangrenosum, will continue timolol drops per derm. Will continue to follow with Dermatology. Venous studies were performed 07/09/2023, no evidence of DVT. Valvular competence appears intact within the proximal deep venous system bilaterally. Great saphenous vein appears bilaterally patent and compressible segmentally. Saphenofemoral junctions are bilaterally competent. There is segmental valvular incompetence noted in the great saphenous veins bilaterally, small saphenous veins patent and competent on the right and patent and incompetent on the left. There are several incompetent accessory saphenous veins and tributaries in the right lower extremity and 2 accessory saphenous veins of the left calf are incompetent. LEAS were ordered 01/14/24 at recommendation of Dermatology. LEAS obtained on 02/09/2024 and demonstrate triphasic and biphasic Doppler waveforms at the right ankle and triphasic Doppler waveforms left ankle. PVR satisfactory at all levels bilaterally. Resting LAINE normal bilaterally. Digital brachial index normal bilateral. No evidence of arterial occlusive disease. Discussed signs and symptoms of infection. Discussed with her if she notices increasing redness about the ulcerative site that moves up the leg, purulent drainage from the ulcerative site, increasing foul odor from the ulcerative site, or if she develops fever greater than 101 degree, develops nausea, vomiting, chills, these are signs of a progressing infection and she should report to the ED for IV antibiotics. She voices understanding of this today. The following work up and care recommendations were made: Dressing: Clobetasol ointment and timolol drops, Adaptic, Dry sterile dressing. Change dressing daily Wash: Soap and water Tissue growth optimization: Clobetasol ointment and timolol drops Offload: To transition to full weightbearing to the right lower extremity in supportive shoe gear. foot. Patient was previously in CAM boot until surgical wound dehiscence. Transitioned back to surgical shoe to allow for decreased pressure at the wound site on the leg. Vascular: DP and PT pulses palpable with adequate capillary fill time to digits. Edema: Patient does have chronic venous insufficiency with bilateral lower extremity edema. Tubigrip compression is applied. Once wound is closed she will return to her prescription compression stockings. Infection: No signs of infection. Pain: May take [id number] Tylenol for discomfort Host factors: Chronic venous insufficiency, autoimmune disease, pyoderma gangrenosum I answered all the patient's questions. To return to the wound healing center in 2 weeks or call sooner if the patient has any questions or concerns. Will RTC for continued wound healing and postoperative care s/p primary repair of split tear of peroneal brevis tendon, primary repair of anterior tibiofibular ligament (AITFL), and syndesmotic repair via tight rope right lower extremity.
--- NOTE | 2024-03-11 08:54 | WC ---
PHOTO 03/10/24 RIGHT LATERAL ANKLE
--- NOTE | 2024-03-11 08:54 | WC ---
PHOTO 03/10/24 RIGHT LATERAL ANKLE
--- NOTE | 2024-03-11 08:55 | WC ---
PHOTO 03/10/24 RIGHT ANKLE MEDIAL
--- NOTE | 2024-03-11 08:55 | WC ---
PHOTO 03/10/24 RIGHT ANKLE MEDIAL
--- NOTE | 2024-03-16 10:26 | WC ---
PHOTO 03/15/24 RIGHT ANKLE
--- NOTE | 2024-03-16 10:26 | WC ---
PHOTO 03/15/24 RIGHT ANKLE
--- NOTE | 2024-03-16 10:26 | WC ---
PHOTO 03/10/24 RIGHT ANKLE MED
--- NOTE | 2024-03-16 10:26 | WC ---
PHOTO 03/10/24 RIGHT ANKLE MED
== END 2024-03-21 23:59 | disposition home or self-care (01) ==
LOC: WC 11:15
PROVIDERS: PCP Internal Medicine; Referring Provider Student in an Organized Health Care Education/Training Program; Visit Provider Student in an Organized Health Care Education/Training Program
DX: T81.31XA Disruption of external operation (surgical) wound, not elsewhere classified, initial encounter (principal); L88 Pyoderma gangrenosum; R60.0 Localized edema; I87.2 Venous insufficiency (chronic) (peripheral); M79.3 Panniculitis, unspecified; S86.30 Unspecified injury of muscle(s) and tendon(s) of peroneal muscle group at lower leg level; S93.401S Sprain of unspecified ligament of right ankle, sequela; S93.431S Sprain of tibiofibular ligament of right ankle, sequela; Z79.899 Other long term (current) drug therapy
CPT/HCPCS: 99213; G0463

== ENCOUNTER → 2024-03-16 | Outpatient (CLI) | payer MEDICARE, MEDICAID, SELFPAY ==
[2024-03-16 08:44] LABS: Bacteria 0 SEEN /hpf (None Seen); Mucous, Urine 0 SEEN /hpf (<or=2+); Red Blood Cells-Urine 0 SEEN /hpf (0-5)
[2024-03-16 09:26] LABS: Color, Urine Yellow (Yellow); Glucose, Dipstick Normal (Normal); Hematocrit 40.2 % (37-47); Ketone-Dipstick Negative (Negative); Leukocyte Esterase-Dipstick 25 /ul (Negative); Mean Corp Hgb Conc 29.9 g/dL (32-36); Mean Corpuscular Volume 80.6 fL (81-99); Mean Platelet Vol. 9.2 fl (6.2-12.0); Nitrite-Dipstick Negative (Negative); Occult Blood-Urine Negative /ul (Negative); Platelet Count 258 K/mm3 (150-450); Protein-Dipstick Negative (Negative); RBC Distribution Width CV 18.6 % (11.6-14.6); RBC Distribution Width SD 53.6 fl (35.1-43.9); Red Blood Count 4.99 M/mm3 (4.2-5.4); Specific Gravity, Urine 1.015 (1.002-1.030); Urine Bilirubin Dipstick Negative (Negative); Urine Clarity Sl. Cloudy (Clear); Urine Urobilinogen Normal (Normal)
[2024-03-16 09:30] LABS: Erythrocyte Sedimentation Rate 26 mm/hr (0-30)
[2024-03-16 09:35] LABS: Squamous Epithelial Cells - UA 0-5 SEEN /hpf (5-10); White Blood Cells 0-5 SEEN /hpf (0-5)
[2024-03-16 09:36] LABS: Protein, Urine (Random) 14.1 mg/dL (<11.9); Protein:Creat Ratio 112 mg/g CRE (0-200)
[2024-03-16 09:54] LABS: AST(SGOT) 18 U/L (15-37); Alanine Aminotransfer ALT/SGPT 35 U/L (13-56); CRP 7.93 mg/L (0.0-3.0); Creatinine, Serum 0.59 mg/dL (0.55-1.02); EST Glomerular Filtration Rate 119 mL/min (>60); Est Glom Filt Rate - Afr Amer 144 mL/min (>60)
[2024-03-17 11:09] LABS: Anti-dsDNA Ab 2 IU/mL (0-9)
== END | disposition home or self-care (01) ==
LOC: LAB 08:37
PROVIDERS: PCP Internal Medicine; Referring Provider Internal Medicine; Visit Provider Internal Medicine
DX: E55.9 Vitamin D deficiency, unspecified (principal); M32.19 Other organ or system involvement in systemic lupus erythematosus; Z79.60 Long term (current) use of unspecified immunomodulators and immunosuppressants
CPT/HCPCS: 36415; 81001; 82306; 82565; 82570; 84156; 84450; 84460; 85027; 85652; 86140; 86225

== ENCOUNTER 2024-04-21 11:00 | Outpatient (RCR) | payer MEDICARE, MEDICAID, SELFPAY ==
[2024-03-22 00:44] VITALS: BP 153/78; PULSE 98; RESP 18; TEMP 36.6
[2024-03-24 11:04] VITALS: BP 151/91; PULSE 95; RESP 18; TEMP 37.1
--- NOTE | 2024-03-24 18:21 | PCM.WC.PN ---
History of Present Illness Date of Service: 03/24/24 Chief Complaint: Surgical wound dehiscence right leg History of Wound: Patient is a 38-year-old female who subsequently developed a surgical wound dehiscence of her right lateral lower extremity. She previously underwent surgery for primary repair of split tear of the peroneus brevis tendon, primary repair of anterior tibiofibular ligament (AITFL), and syndesmotic reduction via tight rope of the right lower extremity on 04/24/2023. Following removal of sutures she developed surgical wound dehiscence secondary to continued lower extremity swelling via chronic venous insufficiency. She did undergo debridement in office 06/05/2023 and Deidre was applied at this time with Tubigrip compression. She has worn compression stockings to manage lower extremity swelling prior to surgical intervention. Patient is also noted to have autoimmune disease and is managed by rheumatology with medication and did resume all medications 2 weeks post operative per rheumatology. She was referred to the wound care center for continued wound healing. She has been applying Deidre and dry sterile dressings daily. She denies N/V/F/chills. Denies further complaints. Subjective Subjective Patient is a 38-year-old female who presents to the wound care center today for f/u of a right lateral leg surgical dehiscence and medial ankle ulceration s/p repair of split tear of peroneal brevis tendon, AITFL ligament repair, and syndesmotic repair of the right ankle. She reports she is continuing to walk in the surgical shoe without difficulty. Continues to follow with dermatology and following instructions for dressing changes daily. Will see Dermatology today, reports cortisone injection at visit last week. Continues to follow their treatment plan. States wounds are continuing to decrease in size. She denies constitutional symptoms today. Denies further complaints today. Objective Data Objective Data Vital Signs: Vital Signs Temp Pulse Resp BP 98.7 F 95 18 151/91 H 03/24/24 11:04 03/24/24 11:04 03/24/24 11:04 03/24/24 11:04 Physical Exam Const alert, oriented x3 and no apparent distress General Appearance: cooperative HEENT normocephalic Eyes General Eye: normal appearance of both eyes Neck General: normal visual inspection Lymph Lymphatic: no lymphadenopathy noted and no lymphedema noted Resp normal respiratory effort Cardio regular rate and regular rhythm Extremity normal capillary refill, no calf tenderness and no pedal edema Extremity Narrative: Vascular DP and PT pulses palpable bilateral. Capillary fill time less than 3 seconds to digits bilateral. Normal temperature gradient. There is hair growth present to lower extremity and digits. Dermatological: There is bilateral lower extremity edema secondary to chronic venous stasis with some hemosiderin deposition noted about the right lower extremity. The surgical dehiscence of the proximal incision on the right lower extremity with subsequent ulceration had reopened with fibrogranular layer. Surrounding skin does have resolving rubor secondary to chronic venous stasis in addition to autoimmune disease and lipodermatosclerosis. No signs of infection. Distal aspect of the incision right lateral leg is a well-healed cicatrix. Anterior lateral leg demonstrates well-healed cicatrix. No signs of infection. Medial ankle wound secondary to autoimmune response/lipodermatosclerosis with rubor noted with some tenderness to palpation. - Improving ulcerations with use of topical clobetasol ointment/timolol drops. On 08/28/2023 she demonstrated worsening of the medial and lateral ulcerative sites with deep purple violaceous border and hypertrophy of the wound bed and was started on oral steroid for possible pyoderma gangrenosum. She returned again on 09/03/2023 following oral steroid with noted improvement in tissue color surrounding the ulcerative sites and decreasing hypertrophy of the wound bed tissue. Pain also noted to be improving following oral steroid. Debridement was stopped at this time. Musculoskeletal: Muscle strength 5 of 5 age-appropriate. No pain to palpation about the lateral leg of the right lower extremity. Skin no rashes or lesions noted, skin turgor normal and no jaundice General Skin Exam: venous stasis and dermatitis Neuro moves all extremities Debridement Note Debridement Note No debridement was completed: No debridement was completed today Post-Debridement Measurements and Additional Note: Post-Debridement Measurements/Treatment NEELA - Nurse 1 - General Ulcer Assessment Start: 03/24/24 11:03 Freq: Status: Active Protocol: LAURIE Activity Type Activity Date Activity User E-sign Co-sign Detail Recorded Client Recorded Date Recorded By Document 03/24/24 11:04 JACK [id number] 03/24/24 11:14 DL 03/24/24 11:04 - Today's Visit Information Type of service Follow-up Visit (Physician/[facility] ) Arrival Mode Ambulatory, Walker Transfer Assistance None Patient Identification Verified (Name & Yes ) Patient Requires Transmission-Based No Precautions Vital Signs Temperature (97.8 F-99.1 F) 98.7 F Temperature Source Temporal Pulse Rate (60-100) 95 Pulse Location Monitor Respiratory Rate (12-18) 18 Respiratory rate source Observation Blood Pressure (90/60-120/80) 151/91 H Blood Pressure Mean (mm Hg) 111 Source Monitor History Since Last Visit- (Skip if this is Patient's initial visit) Have you changed medications since your No last visit? Any new allergies or adverse reactions No Had a fall/change in ADL's that may No increase risk of falls Signs or symptoms of abuse and/or No neglect since last visit Have you been in the hospital since your No last visit? Has dressing in place as prescribed Yes Has compression in place as prescribed Yes Has offloadiing in place as prescribed Yes Experienced any changes in pain level or No management Right Footwear Surgical Shoe with pressure relief insole Pain Scale: 0-10 Numeric Is Patient Pain Free? Yes WC - Nurse 1 - General Ulcer Measurement Start: 03/24/24 11:03 Freq: Status: Active Protocol: Activity Type Activity Date Activity User E-sign Co-sign Detail Recorded Client Recorded Date Recorded By Document 03/24/24 11:04 DL [id number] 03/24/24 11:14 DL 03/24/24 11:04 Wound Center Nurse 1 #2 RT MED ANKLE -Current Size (cm) - Length 0.1 -Current Size (cm) - Width 0.1 -Current Size (cm) - Depth 0.1 -Total Square Cm 0.01 -Exudate Amt Small -Wound Margin Indistinct, Non -Visible -Granulation Amt None Present (0 %) -Necrosis Amt Large (67-100%) -Necrotic Tissue Type Eschar -Structure Exposed N/A -Texture (Meghan-wound Skin Appearance) Scarring -Moisture (Meghan-wound Skin Appearance) No Abnormality -Color (Meghan-wound Skin Appearance) Ecchymosis -Temperature (Meghan-wound Skin No Abnormality Appearance) (Pt Warm) -Ulcer Cleansing Rinsed/ Irrigated with Saline -Foul Odor after Cleansing No -Anesthetic Used 5% Lidocaine Gel #1 RT LAT ANKLE CLUSTER -Current Size (cm) - Length 0.1 -Current Size (cm) - Width 0.1 -Current Size (cm) - Depth 0.1 -Total Square Cm 0.01 -Exudate Amt None Present -Wound Margin Distinct, Outline Attached -Granulation Amt Small (1-33%) -Granulation Quality [place] -Necrosis Amt Small (1-33%) -Necrotic Tissue Type Adherent Slough -Structure Exposed N/A -Texture (Meghan-wound Skin Appearance) Scarring -Moisture (Meghan-wound Skin Appearance) No Abnormality -Color (Meghan-wound Skin Appearance) No Abnormality -Temperature (Meghan-wound Skin No Abnormality Appearance) (Pt Warm) -Tenderness on Palpation (Meghan-wound No Skin Appearance) -Ulcer Cleansing Rinsed/ Irrigated with Saline -Foul Odor after Cleansing No -Anesthetic Used 5% Lidocaine Gel Right Calf (cm) 45 Right Ankle (cm) 26.7 WC - Nurse 2 - General Ulcer CM Notes Start: 03/24/24 11:03 Freq: Status: Active Protocol: Activity Type Activity Date Activity User E-sign Co-sign Detail Recorded Client Recorded Date Recorded By Document 03/24/24 11:41 [facility] [id number] 03/24/24 11:48 [facility] 03/24/24 11:41 Wound Center Nurse 2 #2 RT MED ANKLE -Time 11:41 -Post Debridement (cm) - Length 0.1 -Post Debridement (cm) - Width 0.1 -Post Debridement (cm) - Depth 0.1 -Total Square (Post) (cm) 0.01 -Area of Debridement (cm) - Length 0.1 -Area of Debridement (cm) - Width 0.1 -Total Square (Area) (cm) 0.01 -Wound/Ulcer Outcome Not Healed -Bleeding Controlled with NA #1 RT LAT ANKLE CLUSTER -Time 11:41 -Post Debridement (cm) - Length 0.1 -Post Debridement (cm) - Width 0.1 -Post Debridement (cm) - Depth 0.1 -Total Square (Post) (cm) 0.01 -Area of Debridement (cm) - Length 0.1 -Area of Debridement (cm) - Width 0.1 -Total Square (Area) (cm) 0.01 -Wound/Ulcer Outcome Not Healed -Bleeding Controlled with NA Pain Scale: 0-10 Numeric Is Patient Pain Free? Yes NEELA - Nurse 3 - General Ulcer D/C NN Start: 03/24/24 11:03 Freq: Status: Active Protocol: Activity Type Activity Date Activity User E-sign Co-sign Detail Recorded Client Recorded Date Recorded By Document 03/24/24 11:58 KW [id number] 03/24/24 11:59 KW 03/24/24 11:58 Wound Care Center Nurse 3 #2 RT MED ANKLE -Other Dressing atb ointment -Primary Dressing Covered/Secured with Dry Gauze #1 RT LAT ANKLE CLUSTER -Primary Dressing Covered/Secured with Dry Gauze & Roll Gauze, Secured with Tape Right -Tubular Bandage Single Layer -Size of Tubigrip Used Size D -Size D ($) 1 Pain Scale: 0-10 Numeric Is Patient Pain Free? 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 (3) Pyoderma gangrenosum: CODE(S): L88 - Pyoderma gangrenosum (4) Lipodermatosclerosis of right lower extremity: CODE(S): M79.3 - Panniculitis, unspecified (5) Venous insufficiency (chronic) (peripheral): CODE(S): I87.2 - Venous insufficiency (chronic) (peripheral) (6) Surgical wound dehiscence: CODE(S): T81.31XA - Disruption of external operation (surgical) wound, not elsewhere classified, initial encounter QUALIFIERS: Encounter type: subsequent encounter Qualified Code(s): T81.31XD - Disruption of external operation (surgical) wound, not elsewhere classified, subsequent encounter (7) Injury of peroneal tendon of right foot: CODE(S): S86.301A - Unspecified injury of muscle(s) and tendon(s) of peroneal muscle group at lower leg level, right leg, initial encounter QUALIFIERS: Encounter type: subsequent encounter Qualified Code(s): S86.301D - Unspecified injury of muscle(s) and tendon(s) of peroneal muscle group at lower leg level, right leg, subsequent encounter (8) Rupture of ligament of right ankle: CODE(S): S93.401A - Sprain of unspecified ligament of right ankle, initial encounter (9) Syndesmotic disruption of right ankle: CODE(S): S93.431A - Sprain of tibiofibular ligament of right ankle, initial encounter QUALIFIERS: Encounter type: subsequent encounter Qualified Code(s): S93.431D - Sprain of tibiofibular ligament of right ankle, subsequent encounter (10) Pain in right lower leg: CODE(S): M79.661 - Pain in right lower leg PLAN: Plan Patient seen and evaluated She presents today postoperatively s/p primary repair of split tear of peroneal brevis tendon, primary repair of anterior tibiofibular ligament (AITFL), and syndesmotic reduction via tight rope DOS 04/24/2023 Currently 11 months out of surgery. 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 She reports incision did begin to open up on 06/02/2023. Dehiscence occurred 2 weeks following the removal of her sutures. States no pain along peroneal tendon or to eversion of the foot or at anterior lateral ankle overlying the ATIFL. Does have tenderness to the medial and lateral ankle ulceration secondary pyoderma gangrenosum. 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 She does have some occasional discomfort with the pyoderma. She has remained protective weightbearing to the right lower extremity with surgical shoe. Stiffness in the ankle has improved through continued use of therapy bands and home exercises. Discussed transition to supportive shoe gear once ulcerations have healed. Dressings were removed today and site was inspected. Anterior lateral ankle demonstrates well-healed cicatrix. Lateral ankle demonstrates well-healed cicatrix distally and proximally ulceration, which has reopened secondary to pyroderma gangrenosum. Medial ankle wound secondary to pyroderma gangrenosum. On 08/28/2023 she demonstrated worsening of the medial and lateral ulcerative sites with deep purple violaceous border and hypertrophy of the wound bed and was started on oral steroid for possible pyoderma gangrenosum. She returned again on 09/03/2023 following oral steroid with noted improvement in tissue color surrounding the ulcerative sites and decreasing hypertrophy of the wound bed tissue. Pain also noted to be improving following oral steroid at that time. Debridement was stopped and oral steroid was started continued for additional week following addition of topical Tacrolimus with plan to monitor response. Patient stated the pain improved following the use of the oral steroid and the steroid course was extended as I do feel she has pyoderma gangrenosum. 09/10/2023 she was prescribed topical tacrolimus 0.1% to apply the wound bed daily. Will continue the topical steroid which is working and she is demonstrating healing of ulcerative sites, will continue to monitor. Ulceration did not undergo debridement. Ulceration lateral leg measures 0.1 cm x 0.1 cm x 0.1 cm. Medial ankle ulceration measures 0.1 cm x 0.1 cm x 0.1 cm. She underwent biopsy of medial site on 12/29/23. Her pyoderma gangrenosum had responded well to the topical tacrolimus, but I felt she would benefit from dermatology referral, which was made. Will continue applying timolol drops daily, with use of clobetasol topical per Dermatology. Compression via Tubigrip and HAKEEM wrap applied to the lower extremity. She was also encouraged to elevate lower extremity at all times of rest for edema control. Referral to dermatology on 12/10/23 for additional treatments. She had first appointment with dermatology on 12/29/2023. She reports a biopsy was performed. I have discussed biposy and treatment personally with Dr. Moralez. Dermatology wanted her to stop applying topical tacrolimus and apply timolol drops with 2 drops per wound twice a day and continue with compression stockings as they feel PG has settled down. Discussed corticosteroid injection with dermatology and they feel this is appropriate. Corticosteroid injection #1 performed 01/28/2024. Coricosteriod injection #2 performed 02/11/24. Ulceration sites responded well to injection. Discussed continuing timolol drops and clobetasol topical. Dermatology has started Humira 02/24/2024 but recently stopped due to developing rash. There has been good decrease in size of the lateral ulceration and medial ulceration vs previous visit. And sites continue to decrease following current treatment. Patient is currently on immunosuppressant agents for autoimmune disease, continues follow with Rheumatology. Discussed adequate protein intake to aid in wound healing. She will continue Oscar supplementation. Discussed continuing range of motion exercises, working with resistance bands to increase lower extremity strength. Discussed as wound nears closure physical therapy may be implemented to improve strength and motion to the right lower extremity. Discussed transition to supportive shoe gear to the right lower extremity once ulcerations are healed. Her gait is noted to be much improved versus prior to surgical intervention. At this time overall prognosis is good but complicated due to surgical dehiscence/pyoderma gangrenosum, will continue timolol drops per derm. Will continue to follow with Dermatology. Venous studies were performed 07/09/2023, no evidence of DVT. Valvular competence appears intact within the proximal deep venous system bilaterally. Great saphenous vein appears bilaterally patent and compressible segmentally. Saphenofemoral junctions are bilaterally competent. There is segmental valvular incompetence noted in the great saphenous veins bilaterally, small saphenous veins patent and competent on the right and patent and incompetent on the left. There are several incompetent accessory saphenous veins and tributaries in the right lower extremity and 2 accessory saphenous veins of the left calf are incompetent. LEAS were ordered 01/14/24 at recommendation of Dermatology. LEAS obtained on 02/09/2024 and demonstrate triphasic and biphasic Doppler waveforms at the right ankle and triphasic Doppler waveforms left ankle. PVR satisfactory at all levels bilaterally. Resting LAINE normal bilaterally. Digital brachial index normal bilateral. No evidence of arterial occlusive disease. Discussed signs and symptoms of infection. Discussed with her if she notices increasing redness about the ulcerative site that moves up the leg, purulent drainage from the ulcerative site, increasing foul odor from the ulcerative site, or if she develops fever greater than 101 degree, develops nausea, vomiting, chills, these are signs of a progressing infection and she should report to the ED for IV antibiotics. She voices understanding of this today. The following work up and care recommendations were made: Dressing: Clobetasol ointment and timolol drops, Adaptic, Dry sterile dressing. Change dressing daily Wash: Soap and water Tissue growth optimization: Clobetasol ointment and timolol drops Offload: To transition to full weightbearing to the right lower extremity in supportive shoe gear. foot. Patient was previously in CAM boot until surgical wound dehiscence. Transitioned back to surgical shoe to allow for decreased pressure at the wound site on the leg. Vascular: DP and PT pulses palpable with adequate capillary fill time to digits. Edema: Patient does have chronic venous insufficiency with bilateral lower extremity edema. Tubigrip compression is applied. Once wound is closed she will return to her prescription compression stockings. Infection: No signs of infection. Pain: May take [id number] Tylenol for discomfort Host factors: Chronic venous insufficiency, autoimmune disease, pyoderma gangrenosum I answered all the patient's questions. To return to the wound healing center in 2 weeks or call sooner if the patient has any questions or concerns. Will RTC for continued wound healing and postoperative care s/p primary repair of split tear of peroneal brevis tendon, primary repair of anterior tibiofibular ligament (AITFL), and syndesmotic repair via tight rope right lower extremity.
[2024-04-07 11:40] VITALS: BP 171/65; PULSE 82; RESP 18; TEMP 36.2
--- NOTE | 2024-04-07 18:31 | PCM.WC.PN ---
History of Present Illness Date of Service: 04/07/24 Chief Complaint: Surgical wound dehiscence right leg History of Wound: Patient is a 38-year-old female who subsequently developed a surgical wound dehiscence of her right lateral lower extremity. She previously underwent surgery for primary repair of split tear of the peroneus brevis tendon, primary repair of anterior tibiofibular ligament (AITFL), and syndesmotic reduction via tight rope of the right lower extremity on 04/24/2023. Following removal of sutures she developed surgical wound dehiscence secondary to continued lower extremity swelling via chronic venous insufficiency. She did undergo debridement in office 06/05/2023 and Deidre was applied at this time with Tubigrip compression. She has worn compression stockings to manage lower extremity swelling prior to surgical intervention. Patient is also noted to have autoimmune disease and is managed by rheumatology with medication and did resume all medications 2 weeks post operative per rheumatology. She was referred to the wound care center for continued wound healing. She has been applying Deidre and dry sterile dressings daily. She denies N/V/F/chills. Denies further complaints. Subjective Subjective Patient is a 38-year-old female who presents to the wound care center today for f/u of a right lateral leg surgical dehiscence and medial ankle ulceration s/p repair of split tear of peroneal brevis tendon, AITFL ligament repair, and syndesmotic repair of the right ankle. She reports she is continuing to walk in the surgical shoe without difficulty. Continues to follow with dermatology and following instructions for dressing changes daily. [facility] next pathology appointment is 04/21/2024. Continues to follow their treatment plan. States wounds are continuing to decrease in size. She denies constitutional symptoms today. Denies further complaints today. Objective Data Objective Data Vital Signs: Vital Signs Temp Pulse Resp BP 97.2 F L 82 18 171/65 H 04/07/24 11:40 04/07/24 11:40 04/07/24 11:40 04/07/24 11:40 Physical Exam Const alert, oriented x3 and no apparent distress General Appearance: cooperative HEENT normocephalic Eyes General Eye: normal appearance of both eyes Neck General: normal visual inspection Lymph Lymphatic: no lymphadenopathy noted and no lymphedema noted Resp normal respiratory effort Cardio regular rate and regular rhythm Extremity normal capillary refill, no calf tenderness and no pedal edema Extremity Narrative: Vascular DP and PT pulses palpable bilateral. Capillary fill time less than 3 seconds to digits bilateral. Normal temperature gradient. There is hair growth present to lower extremity and digits. Dermatological: There is bilateral lower extremity edema secondary to chronic venous stasis with some hemosiderin deposition noted about the right lower extremity. The surgical dehiscence of the proximal incision on the right lower extremity with subsequent ulceration had reopened with fibrogranular layer. Surrounding skin does have resolving rubor secondary to chronic venous stasis in addition to autoimmune disease and lipodermatosclerosis. No signs of infection. Distal aspect of the incision right lateral leg is a well-healed cicatrix. Anterior lateral leg demonstrates well-healed cicatrix. No signs of infection. Medial ankle wound secondary to autoimmune response/lipodermatosclerosis with rubor noted with some tenderness to palpation. - Improving ulcerations with use of topical clobetasol ointment/timolol drops and are nearing healed status. On 08/28/2023 she demonstrated worsening of the medial and lateral ulcerative sites with deep purple violaceous border and hypertrophy of the wound bed and was started on oral steroid for possible pyoderma gangrenosum. She returned again on 09/03/2023 following oral steroid with noted improvement in tissue color surrounding the ulcerative sites and decreasing hypertrophy of the wound bed tissue. Pain also noted to be improving following oral steroid. Debridement was stopped at this time. Musculoskeletal: Muscle strength 5 of 5 age-appropriate. No pain to palpation about the lateral leg of the right lower extremity. Skin no rashes or lesions noted, skin turgor normal and no jaundice General Skin Exam: venous stasis and dermatitis Neuro moves all extremities Debridement Note Debridement Note No debridement was completed: No debridement was completed today Post-Debridement Measurements and Additional Note: Post-Debridement Measurements/Treatment NEELA - Nurse 1 - General Ulcer Assessment Start: 03/24/24 11:03 Freq: Status: Active Protocol: LAURIE Activity Type Activity Date Activity User E-sign Co-sign Detail Recorded Client Recorded Date Recorded By Document 03/24/24 11:04 DL [id number] 03/24/24 11:14 DL Document 04/07/24 11:40 DL [id number] 04/07/24 11:47 DL 03/24/24 04/07/24 11:04 11:40 - Today's Visit Information Type of service Follow-up Visit Follow-up Visit (Physician/CLAY 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 PRESS 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 (Physician/CLAY DRY PRESS 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 ) ) Arrival Mode Ambulatory, Ambulatory, Walker Walker Transfer Assistance None None Patient Identification Verified (Name & Yes Yes ) Patient Requires Transmission-Based No No Precautions Vital Signs Temperature (97.8 F-99.1 F) 98.7 F 97.2 F L Temperature Source Temporal Temporal Pulse Rate (60-100) 95 82 Pulse Location Monitor Monitor Respiratory Rate (12-18) 18 18 Respiratory rate source Observation Observation Blood Pressure (90/60-120/80) 151/91 H 171/65 H Blood Pressure Mean (mm Hg) 111 100 Source Monitor History Since Last Visit- (Skip if this is Patient's initial visit) Have you changed medications since your No No last visit? Any new allergies or adverse reactions No No Had a fall/change in ADL's that may No No increase risk of falls Signs or symptoms of abuse and/or No No neglect since last visit Have you been in the hospital since your No No last visit? Has dressing in place as prescribed Yes Yes Has compression in place as prescribed Yes Yes Has offloadiing in place as prescribed Yes Yes Experienced any changes in pain level or No No management Left Footwear Regular Shoe Right Footwear Surgical Shoe Surgical Shoe with pressure with pressure relief insole relief insole Pain Scale: 0-10 Numeric Is Patient Pain Free? Yes Yes - Nurse 1 - General Ulcer Measurement Start: 03/24/24 11:03 Freq: Status: Active Protocol: Activity Type Activity Date Activity User E-sign Co-sign Detail Recorded Client Recorded Date Recorded By Document 03/24/24 11:04 [id number] 03/24/24 11:14 DL Document 04/07/24 11:40 DL [id number] 04/07/24 11:47 DL 03/24/24 04/07/24 11:04 11:40 Wound Center Nurse 1 #2 RT MED ANKLE -Current Size (cm) - Length 0.1 0.1 -Current Size (cm) - Width 0.1 0.1 -Current Size (cm) - Depth 0.1 0.1 -Total Square Cm 0.01 0.01 -Exudate Amt Small None Present -Wound Margin Indistinct, Non Distinct, -Visible Outline Attached -Granulation Amt None Present (0 Large (67-100%) %) -Granulation Quality Red -Necrosis Amt Large (67-100%) None Present (0 %) -Necrotic Tissue Type Eschar -Structure Exposed N/A N/A -Texture (Meghan-wound Skin Appearance) Scarring Localized Edema ,Scarring -Moisture (Meghan-wound Skin Appearance) No Abnormality No Abnormality -Color (Meghan-wound Skin Appearance) Ecchymosis Hemosiderin Staining -Temperature (Meghan-wound Skin No Abnormality No Abnormality Appearance) (Pt Warm) (Pt Warm) -Tenderness on Palpation (Meghan-wound Yes Skin Appearance) -Ulcer Cleansing Rinsed/ Soap and Water Irrigated with Saline -Foul Odor after Cleansing No No -Anesthetic Used 5% Lidocaine Gel #1 RT LAT ANKLE CLUSTER -Current Size (cm) - Length 0.1 0.1 -Current Size (cm) - Width 0.1 0.1 -Current Size (cm) - Depth 0.1 0.1 -Total Square Cm 0.01 0.01 -Exudate Amt None Present None Present -Wound Margin Distinct, Distinct, Outline Outline Attached Attached -Granulation Amt Small (1-33%) Large (67-100%) -Granulation Quality Lawtey Lawtey -Necrosis Amt Small (1-33%) None Present (0 %) -Necrotic Tissue Type Adherent Slough -Structure Exposed N/A N/A -Texture (Meghan-wound Skin Appearance) Scarring Localized Edema ,Scarring -Moisture (Meghan-wound Skin Appearance) No Abnormality No Abnormality -Color (Meghan-wound Skin Appearance) No Abnormality Hemosiderin Staining -Temperature (Meghan-wound Skin No Abnormality No Abnormality Appearance) (Pt Warm) (Pt Warm) -Tenderness on Palpation (Meghan-wound No Yes Skin Appearance) -Ulcer Cleansing Rinsed/ Soap and Water Irrigated with Saline -Foul Odor after Cleansing No No -Anesthetic Used 5% Lidocaine Gel Right Calf (cm) 45 44.5 Right Ankle (cm) 26.7 28.5 WC - Nurse 2 - General Ulcer CM Notes Start: 03/24/24 11:03 Freq: Status: Active Protocol: Activity Type Activity Date Activity User E-sign Co-sign Detail Recorded Client Recorded Date Recorded By Document 03/24/24 11:41 [facility] [id number] 03/24/24 11:48 BM Document 04/07/24 12:14 [facility] [id number] 04/07/24 12:21 BMF 03/24/24 04/07/24 11:41 12:14 Wound Center Nurse 2 #2 RT MED ANKLE -Time 11:41 -Post Debridement (cm) - Length 0.1 0.1 -Post Debridement (cm) - Width 0.1 0.1 -Post Debridement (cm) - Depth 0.1 0.1 -Total Square (Post) (cm) 0.01 0.01 -Area of Debridement (cm) - Length 0.1 0.1 -Area of Debridement (cm) - Width 0.1 0.1 -Total Square (Area) (cm) 0.01 0.01 -Wound/Ulcer Outcome Not Healed Not Healed -Bleeding Controlled with NA NA #1 RT LAT ANKLE CLUSTER -Time 11:41 -Post Debridement (cm) - Length 0.1 0.1 -Post Debridement (cm) - Width 0.1 0.1 -Post Debridement (cm) - Depth 0.1 0.1 -Total Square (Post) (cm) 0.01 0.01 -Area of Debridement (cm) - Length 0.1 0.1 -Area of Debridement (cm) - Width 0.1 0.1 -Total Square (Area) (cm) 0.01 0.01 -Wound/Ulcer Outcome Not Healed Not Healed -Bleeding Controlled with NA NA Pain Scale: 0-10 Numeric Is Patient Pain Free? Yes Yes WC - Nurse 3 - General Ulcer D/C NN Start: 03/24/24 11:03 Freq: Status: Active Protocol: Activity Type Activity Date Activity User E-sign Co-sign Detail Recorded Client Recorded Date Recorded By Document 03/24/24 11:58 [id number] 03/24/24 11:59 03/24/24 11:58 Wound Care Center Nurse 3 #2 RT MED ANKLE -Other Dressing atb ointment -Primary Dressing Covered/Secured with Dry Gauze #1 RT LAT ANKLE CLUSTER -Primary Dressing Covered/Secured with Dry Gauze & Roll Gauze, Secured with Tape Right -Tubular Bandage Single Layer -Size of Tubigrip Used Size D -Size D ($) 1 Pain Scale: 0-10 Numeric Is Patient Pain Free? 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 (3) Pyoderma gangrenosum: CODE(S): L88 - Pyoderma gangrenosum (4) Lipodermatosclerosis of right lower extremity: CODE(S): M79.3 - Panniculitis, unspecified (5) Venous insufficiency (chronic) (peripheral): CODE(S): I87.2 - Venous insufficiency (chronic) (peripheral) (6) Surgical wound dehiscence: CODE(S): T81.31XA - Disruption of external operation (surgical) wound, not elsewhere classified, initial encounter QUALIFIERS: Encounter type: subsequent encounter Qualified Code(s): T81.31XD - Disruption of external operation (surgical) wound, not elsewhere classified, subsequent encounter (7) Injury of peroneal tendon of right foot: CODE(S): S86.301A - Unspecified injury of muscle(s) and tendon(s) of peroneal muscle group at lower leg level, right leg, initial encounter QUALIFIERS: Encounter type: subsequent encounter Qualified Code(s): S86.301D - Unspecified injury of muscle(s) and tendon(s) of peroneal muscle group at lower leg level, right leg, subsequent encounter (8) Rupture of ligament of right ankle: CODE(S): S93.401A - Sprain of unspecified ligament of right ankle, initial encounter (9) Syndesmotic disruption of right ankle: CODE(S): S93.431A - Sprain of tibiofibular ligament of right ankle, initial encounter QUALIFIERS: Encounter type: subsequent encounter Qualified Code(s): S93.431D - Sprain of tibiofibular ligament of right ankle, subsequent encounter (10) Pain in right lower leg: CODE(S): M79.661 - Pain in right lower leg PLAN: Plan Patient seen and evaluated She presents today postoperatively s/p primary repair of split tear of peroneal brevis tendon, primary repair of anterior tibiofibular ligament (AITFL), and syndesmotic reduction via tight rope DOS 04/24/2023 Currently 11 months, 3 weeks out of surgery. Denies pain to ankle but heating and ventilating tender about ulceration sites, she is continuing weight bearing to the Right foot. She reports incision did begin to open up on 06/02/2023. Dehiscence occurred 2 weeks following the removal of her sutures. States no pain along peroneal tendon or to eversion of the foot or at anterior lateral ankle overlying the ATIFL. Does have tenderness to the medial and lateral ankle ulceration secondary pyoderma gangrenosum. 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 She does have some occasional discomfort with the pyoderma. She has remained protective weightbearing to the right lower extremity with surgical shoe. Stiffness in the ankle has improved through continued use of therapy bands and home exercises. Discussed transition to supportive shoe gear once ulcerations have healed. Dressings were removed today and site was inspected. Anterior lateral ankle demonstrates well-healed cicatrix. Lateral ankle demonstrates well-healed cicatrix distally and proximally ulceration, which has reopened secondary to pyroderma gangrenosum. Medial ankle wound secondary to pyroderma gangrenosum. On 08/28/2023 she demonstrated worsening of the medial and lateral ulcerative sites with deep purple violaceous border and hypertrophy of the wound bed and was started on oral steroid for possible pyoderma gangrenosum. She returned again on 09/03/2023 following oral steroid with noted improvement in tissue color surrounding the ulcerative sites and decreasing hypertrophy of the wound bed tissue. Pain also noted to be improving following oral steroid at that time. Debridement was stopped and oral steroid was started continued for additional week following addition of topical Tacrolimus with plan to monitor response. Patient stated the pain improved following the use of the oral steroid and the steroid course was extended as I do feel she has pyoderma gangrenosum. 09/10/2023 she was prescribed topical tacrolimus 0.1% to apply the wound bed daily. Will continue the topical steroid which is working and she is demonstrating healing of ulcerative sites, will continue to monitor. Ulceration did not undergo debridement. Ulceration lateral leg measures 0.1 cm x 0.1 cm x 0.1 cm. Medial ankle ulceration measures 0.1 cm x 0.1 cm x 0.1 cm. She underwent biopsy of medial site on 12/29/23. Her pyoderma gangrenosum had responded well to the topical tacrolimus, but I felt she would benefit from dermatology referral, which was made. Will continue applying timolol drops daily, with use of clobetasol topical per Dermatology. Compression via Tubigrip and HAKEEM wrap applied to the lower extremity. She was also encouraged to elevate lower extremity at all times of rest for edema control. Referral to dermatology on 12/10/23 for additional treatments. She had first appointment with dermatology on 12/29/2023. She reports a biopsy was performed. I have discussed biposy and treatment personally with Dr. Moralez. Dermatology wanted her to stop applying topical tacrolimus and apply timolol drops with 2 drops per wound twice a day and continue with compression stockings as they feel PG has settled down. Discussed corticosteroid injection with dermatology and they feel this is appropriate. Corticosteroid injection #1 performed 01/28/2024. Coricosteriod injection #2 performed 02/11/24. Ulceration sites responded well to injection. Discussed continuing timolol drops and clobetasol topical. Dermatology has started Humira 02/24/2024 but stopped due to developing rash. She has recently resumed without issue. There has been good decrease in size of the lateral ulceration and medial ulceration vs previous visit and both sites are nearly healed. Sites continue to decrease following current treatment. Patient is currently on immunosuppressant agents for autoimmune disease, continues follow with Rheumatology. Discussed adequate protein intake to aid in wound healing. She will continue Oscar supplementation. Discussed continuing range of motion exercises, working with resistance bands to increase lower extremity strength. Discussed as wound nears closure physical therapy may be implemented to improve strength and motion to the right lower extremity. Discussed transition to supportive shoe gear to the right lower extremity once ulcerations are healed. Her gait is noted to be much improved versus prior to surgical intervention. At this time overall prognosis is good but complicated due to surgical dehiscence/pyoderma gangrenosum, will continue timolol drops per derm. Will continue to follow with Dermatology. Venous studies were performed 07/09/2023, no evidence of DVT. Valvular competence appears intact within the proximal deep venous system bilaterally. Great saphenous vein appears bilaterally patent and compressible segmentally. Saphenofemoral junctions are bilaterally competent. There is segmental valvular incompetence noted in the great saphenous veins bilaterally, small saphenous veins patent and competent on the right and patent and incompetent on the left. There are several incompetent accessory saphenous veins and tributaries in the right lower extremity and 2 accessory saphenous veins of the left calf are incompetent. LEAS were ordered 01/14/24 at recommendation of Dermatology. LEAS obtained on 02/09/2024 and demonstrate triphasic and biphasic Doppler waveforms at the right ankle and triphasic Doppler waveforms left ankle. PVR satisfactory at all levels bilaterally. Resting LAINE normal bilaterally. Digital brachial index normal bilateral. No evidence of arterial occlusive disease. Refferral placed today with Vascular Surgery per request of Dermatology. Discussed signs and symptoms of infection. Discussed with her if she notices increasing redness about the ulcerative site that moves up the leg, purulent drainage from the ulcerative site, increasing foul odor from the ulcerative site, or if she develops fever greater than 101 degree, develops nausea, vomiting, chills, these are signs of a progressing infection and she should report to the ED for IV antibiotics. She voices understanding of this today. The following work up and care recommendations were made: Dressing: Clobetasol ointment and timolol drops, Adaptic, Dry sterile dressing. Change dressing daily Wash: Soap and water Tissue growth optimization: Clobetasol ointment and timolol drops Offload: To transition to full weightbearing to the right lower extremity in supportive shoe gear. foot. Patient was previously in CAM boot until surgical wound dehiscence. Transitioned back to surgical shoe to allow for decreased pressure at the wound site on the leg. Vascular: DP and PT pulses palpable with adequate capillary fill time to digits. Edema: Patient does have chronic venous insufficiency with bilateral lower extremity edema. Tubigrip compression is applied. Once wound is closed she will return to her prescription compression stockings. Infection: No signs of infection. Pain: May take [id number] Tylenol for discomfort Host factors: Chronic venous insufficiency, autoimmune disease, pyoderma gangrenosum I answered all the patient's questions. To return to the wound healing center in 2 weeks or call sooner if the patient has any questions or concerns. Will RTC for continued wound healing and postoperative care s/p primary repair of split tear of peroneal brevis tendon, primary repair of anterior tibiofibular ligament (AITFL), and syndesmotic repair via tight rope right lower extremity.
[2024-04-21 11:02] VITALS: BP 133/86; PULSE 90; RESP 18; TEMP 36.1
--- NOTE | 2024-04-21 11:07 | PCM.WC.PN ---
History of Present Illness Date of Service: 04/21/24 Chief Complaint: Surgical wound dehiscence right leg History of Wound: Patient is a 38-year-old female who subsequently developed a surgical wound dehiscence of her right lateral lower extremity. She previously underwent surgery for primary repair of split tear of the peroneus brevis tendon, primary repair of anterior tibiofibular ligament (AITFL), and syndesmotic reduction via tight rope of the right lower extremity on 04/24/2023. Following removal of sutures she developed surgical wound dehiscence secondary to continued lower extremity swelling via chronic venous insufficiency. She did undergo debridement in office 06/05/2023 and Deidre was applied at this time with Tubigrip compression. She has worn compression stockings to manage lower extremity swelling prior to surgical intervention. Patient is also noted to have autoimmune disease and is managed by rheumatology with medication and did resume all medications 2 weeks post operative per rheumatology. She was referred to the wound care center for continued wound healing. She has been applying Deidre and dry sterile dressings daily. She denies N/V/F/chills. Denies further complaints. Subjective Subjective Patient is a 38-year-old female who presents to the wound care center today for f/u of a right lateral leg surgical dehiscence and medial ankle ulceration s/p repair of split tear of peroneal brevis tendon, AITFL ligament repair, and syndesmotic repair of the right ankle. She reports she is continuing to walk in the surgical shoe without difficulty. Continues to follow with dermatology and following instructions for dressing changes daily. States next dermatology appointment is 04/21/2024. Continues to follow their treatment plan and reports sights are nearly closed. She denies constitutional symptoms today. Denies further complaints today. Objective Data Objective Data Vital Signs: Vital Signs Temp Pulse Resp BP 97.2 F L 82 18 171/65 H 04/07/24 11:40 04/07/24 11:40 04/07/24 11:40 04/07/24 11:40 Physical Exam Const alert, oriented x3 and no apparent distress General Appearance: cooperative HEENT normocephalic Eyes General Eye: normal appearance of both eyes Neck General: normal visual inspection Lymph Lymphatic: no lymphadenopathy noted and no lymphedema noted Resp normal respiratory effort Cardio regular rate and regular rhythm Extremity normal capillary refill, no calf tenderness and no pedal edema Extremity Narrative: Vascular DP and PT pulses palpable bilateral. Capillary fill time less than 3 seconds to digits bilateral. Normal temperature gradient. There is hair growth present to lower extremity and digits. Dermatological: There is bilateral lower extremity edema secondary to chronic venous stasis with some hemosiderin deposition noted about the right lower extremity. The surgical dehiscence of the proximal incision on the right lower extremity with subsequent ulceration had reopened with fibrogranular layer. Surrounding skin does have resolving rubor secondary to chronic venous stasis in addition to autoimmune disease and lipodermatosclerosis. No signs of infection. Distal aspect of the incision right lateral leg is a well-healed cicatrix. Anterior lateral leg demonstrates well-healed cicatrix. No signs of infection. Medial ankle wound secondary to autoimmune response/lipodermatosclerosis with rubor noted with some tenderness to palpation. - Improving ulcerations with use of topical clobetasol ointment/timolol drops and are nearing healed status. On 08/28/2023 she demonstrated worsening of the medial and lateral ulcerative sites with deep purple violaceous border and hypertrophy of the wound bed and was started on oral steroid for possible pyoderma gangrenosum. She returned again on 09/03/2023 following oral steroid with noted improvement in tissue color surrounding the ulcerative sites and decreasing hypertrophy of the wound bed tissue. Pain also noted to be improving following oral steroid. Debridement was stopped at this time. Musculoskeletal: Muscle strength 5 of 5 age-appropriate. No pain to palpation about the lateral leg of the right lower extremity. Skin no rashes or lesions noted, skin turgor normal and no jaundice General Skin Exam: venous stasis and dermatitis Neuro moves all extremities Debridement Note Debridement Note Wound debrided: Right medial ankle Laterality: Right Wound Grade/Stage: Maciel stage I Type of Debridement: Selective debridement Anesthesia Used: 5% Lidocaine Gel Depth: Down to and including healthy tissue Percentage of wound debrided: 100 Instrument Used: - (4 x 4 gauze) Tissue Removed: Nonviable tissue and some fibrotic tissue Severity: Limited To Skin Breakdown Amount of bleeding with debridement: None Patient tolerated procedure: Patient tolerated procedure well Post-Debridement Measurements and Additional Note: Post-Debridement Measurements/Treatment NEELA - Nurse 1 - General Ulcer Assessment Start: 03/24/24 11:03 Freq: Status: Active Protocol: LAURIE Activity Type Activity Date Activity User E-sign Co-sign Detail Recorded Client Recorded Date Recorded By Document 03/24/24 11:04 DL [id number] 03/24/24 11:14 DL Document 04/07/24 11:40 DL [id number] 04/07/24 11:47 DL 03/24/24 04/07/24 11:04 11:40 - Today's Visit Information Type of service Follow-up Visit Follow-up Visit (Physician/EMPLOYEE DEVELOPMENT SPECIALIST (Physician/EMPLOYEE DEVELOPMENT SPECIALIST ) ) Arrival Mode Ambulatory, Ambulatory, Walker Walker Transfer Assistance None None Patient Identification Verified (Name & Yes Yes ) Patient Requires Transmission-Based No No Precautions Vital Signs Temperature (97.8 F-99.1 F) 98.7 F 97.2 F L Temperature Source Temporal Temporal Pulse Rate (60-100) 95 82 Pulse Location Monitor Monitor Respiratory Rate (12-18) 18 18 Respiratory rate source Observation Observation Blood Pressure (90/60-120/80) 151/91 H 171/65 H Blood Pressure Mean (mm Hg) 111 100 Source Monitor History Since Last Visit- (Skip if this is Patient's initial visit) Have you changed medications since your No No last visit? Any new allergies or adverse reactions No No Had a fall/change in ADL's that may No No increase risk of falls Signs or symptoms of abuse and/or No No neglect since last visit Have you been in the hospital since your No No last visit? Has dressing in place as prescribed Yes Yes Has compression in place as prescribed Yes Yes Has offloadiing in place as prescribed Yes Yes Experienced any changes in pain level or No No management Left Footwear Regular Shoe Right Footwear Surgical Shoe Surgical Shoe with pressure with pressure relief insole relief insole Pain Scale: 0-10 Numeric Is Patient Pain Free? Yes Yes - Nurse 1 - General Ulcer Measurement Start: 03/24/24 11:03 Freq: Status: Active Protocol: Activity Type Activity Date Activity User E-sign Co-sign Detail Recorded Client Recorded Date Recorded By Document 03/24/24 11:04 DL [id number] 03/24/24 11:14 DL Document 04/07/24 11:40 DL [id number] 04/07/24 11:47 DL 03/24/24 04/07/24 11:04 11:40 Wound Center Nurse 1 #2 RT MED ANKLE -Current Size (cm) - Length 0.1 0.1 -Current Size (cm) - Width 0.1 0.1 -Current Size (cm) - Depth 0.1 0.1 -Total Square Cm 0.01 0.01 -Exudate Amt Small None Present -Wound Margin Indistinct, Non Distinct, -Visible Outline Attached -Granulation Amt None Present (0 Large (67-100%) %) -Granulation Quality Red -Necrosis Amt Large (67-100%) None Present (0 %) -Necrotic Tissue Type Eschar -Structure Exposed N/A N/A -Texture (Meghan-wound Skin Appearance) Scarring Localized Edema ,Scarring -Moisture (Meghan-wound Skin Appearance) No Abnormality No Abnormality -Color (Meghan-wound Skin Appearance) Ecchymosis Hemosiderin Staining -Temperature (Meghan-wound Skin No Abnormality No Abnormality Appearance) (Pt Warm) (Pt Warm) -Tenderness on Palpation (Meghan-wound Yes Skin Appearance) -Ulcer Cleansing Rinsed/ Soap and Water Irrigated with Saline -Foul Odor after Cleansing No No -Anesthetic Used 5% Lidocaine Gel #1 RT LAT ANKLE CLUSTER -Current Size (cm) - Length 0.1 0.1 -Current Size (cm) - Width 0.1 0.1 -Current Size (cm) - Depth 0.1 0.1 -Total Square Cm 0.01 0.01 -Exudate Amt None Present None Present -Wound Margin Distinct, Distinct, Outline Outline Attached Attached -Granulation Amt Small (1-33%) Large (67-100%) -Granulation Quality Wall Wall -Necrosis Amt Small (1-33%) None Present (0 %) -Necrotic Tissue Type Adherent Slough -Structure Exposed N/A N/A -Texture (Meghan-wound Skin Appearance) Scarring Localized Edema ,Scarring -Moisture (Meghan-wound Skin Appearance) No Abnormality No Abnormality -Color (Meghan-wound Skin Appearance) No Abnormality Hemosiderin Staining -Temperature (Meghan-wound Skin No Abnormality No Abnormality Appearance) (Pt Warm) (Pt Warm) -Tenderness on Palpation (Meghan-wound No Yes Skin Appearance) -Ulcer Cleansing Rinsed/ Soap and Water Irrigated with Saline -Foul Odor after Cleansing No No -Anesthetic Used 5% Lidocaine Gel Right Calf (cm) 45 44.5 Right Ankle (cm) 26.7 28.5 WC - Nurse 2 - General Ulcer CM Notes Start: 03/24/24 11:03 Freq: Status: Active Protocol: Activity Type Activity Date Activity User E-sign Co-sign Detail Recorded Client Recorded Date Recorded By Document 03/24/24 11:[address] [facility] [id number] 03/24/24 11:[address] [facility] Document 04/07/24 12:[address] [facility] [id number] 04/07/24 12:21 BM 03/24/24 04/07/24 11:41 12:14 Wound Center Nurse 2 #2 RT MED ANKLE -Time 11:41 -Post Debridement (cm) - Length 0.1 0.1 -Post Debridement (cm) - Width 0.1 0.1 -Post Debridement (cm) - Depth 0.1 0.1 -Total Square (Post) (cm) 0.01 0.01 -Area of Debridement (cm) - Length 0.1 0.1 -Area of Debridement (cm) - Width 0.1 0.1 -Total Square (Area) (cm) 0.01 0.01 -Wound/Ulcer Outcome Not Healed Not Healed -Bleeding Controlled with NA NA #1 RT LAT ANKLE CLUSTER -Time 11:41 -Post Debridement (cm) - Length 0.1 0.1 -Post Debridement (cm) - Width 0.1 0.1 -Post Debridement (cm) - Depth 0.1 0.1 -Total Square (Post) (cm) 0.01 0.01 -Area of Debridement (cm) - Length 0.1 0.1 -Area of Debridement (cm) - Width 0.1 0.1 -Total Square (Area) (cm) 0.01 0.01 -Wound/Ulcer Outcome Not Healed Not Healed -Bleeding Controlled with NA NA Pain Scale: 0-10 Numeric Is Patient Pain Free? Yes Yes - Nurse 3 - General Ulcer D/C NN Start: 03/24/24 11:03 Freq: Status: Active Protocol: Activity Type Activity Date Activity User E-sign Co-sign Detail Recorded Client Recorded Date Recorded By Document 03/24/24 11:58 [id number] 03/24/24 11:59 03/24/24 11:58 Wound Care Center Nurse 3 #2 RT MED ANKLE -Other Dressing atb ointment -Primary Dressing Covered/Secured with Dry Gauze #1 RT LAT ANKLE CLUSTER -Primary Dressing Covered/Secured with Dry Gauze & Roll Gauze, Secured with Tape Right -Tubular Bandage Single Layer -Size of Tubigrip Used Size D -Size D ($) 1 Pain Scale: 0-10 Numeric Is Patient Pain Free? 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 (3) Pyoderma gangrenosum: CODE(S): L88 - Pyoderma gangrenosum (4) Lipodermatosclerosis of right lower extremity: CODE(S): M79.3 - Panniculitis, unspecified (5) Venous insufficiency (chronic) (peripheral): CODE(S): I87.2 - Venous insufficiency (chronic) (peripheral) (6) Surgical wound dehiscence: CODE(S): T81.31XA - Disruption of external operation (surgical) wound, not elsewhere classified, initial encounter QUALIFIERS: Encounter type: subsequent encounter Qualified Code(s): T81.31XD - Disruption of external operation (surgical) wound, not elsewhere classified, subsequent encounter (7) Injury of peroneal tendon of right foot: CODE(S): S86.301A - Unspecified injury of muscle(s) and tendon(s) of peroneal muscle group at lower leg level, right leg, initial encounter QUALIFIERS: Encounter type: subsequent encounter Qualified Code(s): S86.301D - Unspecified injury of muscle(s) and tendon(s) of peroneal muscle group at lower leg level, right leg, subsequent encounter (8) Rupture of ligament of right ankle: CODE(S): S93.401A - Sprain of unspecified ligament of right ankle, initial encounter (9) Syndesmotic disruption of right ankle: CODE(S): S93.431A - Sprain of tibiofibular ligament of right ankle, initial encounter QUALIFIERS: Encounter type: subsequent encounter Qualified Code(s): S93.431D - Sprain of tibiofibular ligament of right ankle, subsequent encounter (10) Pain in right lower leg: CODE(S): M79.661 - Pain in right lower leg PLAN: Plan Patient seen and evaluated She presents today postoperatively s/p primary repair of split tear of peroneal brevis tendon, primary repair of anterior tibiofibular ligament (AITFL), and syndesmotic reduction via tight rope DOS 04/24/2023 Currently 11 months, 3 weeks out of surgery. Denies pain to ankle but copy lathe tender about ulceration sites, she is continuing weight bearing to the Right foot. She reports incision did begin to open up on 06/02/2023. Dehiscence occurred 2 weeks following the removal of her sutures. States no pain along peroneal tendon or to eversion of the foot or at anterior lateral ankle overlying the ATIFL. Does have tenderness to the medial and lateral ankle ulceration secondary pyoderma gangrenosum. 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 She does have some occasional discomfort with the pyoderma. She has remained protective weightbearing to the right lower extremity with surgical shoe. Stiffness in the ankle has improved through continued use of therapy bands and home exercises. Discussed transition to supportive shoe gear once ulcerations have healed. Dressings were removed today and site was inspected. Anterior lateral ankle demonstrates well-healed cicatrix. Lateral ankle demonstrates well-healed cicatrix distally and proximally ulceration, which has reopened secondary to pyroderma gangrenosum. Medial ankle wound secondary to pyroderma gangrenosum. On 08/28/2023 she demonstrated worsening of the medial and lateral ulcerative sites with deep purple violaceous border and hypertrophy of the wound bed and was started on oral steroid for possible pyoderma gangrenosum. She returned again on 09/03/2023 following oral steroid with noted improvement in tissue color surrounding the ulcerative sites and decreasing hypertrophy of the wound bed tissue. Pain also noted to be improving following oral steroid at that time. Debridement was stopped and oral steroid was started continued for additional week following addition of topical Tacrolimus with plan to monitor response. Patient stated the pain improved following the use of the oral steroid and the steroid course was extended as I do feel she has pyoderma gangrenosum. 09/10/2023 she was prescribed topical tacrolimus 0.1% to apply the wound bed daily. Will continue the topical steroid which is working and she is demonstrating healing of ulcerative sites, will continue to monitor. Ulceration did not undergo debridement. Ulceration lateral leg measures 0.1 cm x 0.1 cm x 0.1 cm. Medial ankle ulceration measures 0.1 cm x 0.1 cm x 0.1 cm. She underwent biopsy of medial site on 12/29/23. Her pyoderma gangrenosum had responded well to the topical tacrolimus, but I felt she would benefit from dermatology referral, which was made. Will continue applying timolol drops daily, with use of clobetasol topical per Dermatology. Compression via Tubigrip and HAKEEM wrap applied to the lower extremity. She was also encouraged to elevate lower extremity at all times of rest for edema control. She did have some slight scant superficial purulence and thus she was empirically started on Doxycycline 100mg BID x 14 days (Stop date 05/05/24). Referral to dermatology on 12/10/23 for additional treatments. She had first appointment with dermatology on 12/29/2023. She reports a biopsy was performed. I have discussed biposy and treatment personally with Dr. Moralez. Dermatology wanted her to stop applying topical tacrolimus and apply timolol drops with 2 drops per wound twice a day and continue with compression stockings as they feel PG has settled down. Discussed corticosteroid injection with dermatology and they feel this is appropriate. Corticosteroid injection #1 performed 01/28/2024. Coricosteriod injection #2 performed 02/11/24. Ulceration sites responded well to injection. Discussed continuing timolol drops and clobetasol topical. Dermatology has started Humira 02/24/2024 but stopped due to developing rash. She has recently resumed without issue. There has been good decrease in size of the lateral ulceration and medial ulceration vs previous visit and both sites are nearly healed. Sites continue to decrease following current treatment. Patient is currently on immunosuppressant agents for autoimmune disease, continues follow with Rheumatology. Discussed adequate protein intake to aid in wound healing. She will continue Oscar supplementation. Discussed continuing range of motion exercises, working with resistance bands to increase lower extremity strength. Discussed as wound nears closure physical therapy may be implemented to improve strength and motion to the right lower extremity. Discussed transition to supportive shoe gear to the right lower extremity once ulcerations are healed. Her gait is noted to be much improved versus prior to surgical intervention. At this time overall prognosis is good but complicated due to surgical dehiscence/pyoderma gangrenosum, will continue timolol drops per derm. Will continue to follow with Dermatology. Venous studies were performed 07/09/2023, no evidence of DVT. Valvular competence appears intact within the proximal deep venous system bilaterally. Great saphenous vein appears bilaterally patent and compressible segmentally. Saphenofemoral junctions are bilaterally competent. There is segmental valvular incompetence noted in the great saphenous veins bilaterally, small saphenous veins patent and competent on the right and patent and incompetent on the left. There are several incompetent accessory saphenous veins and tributaries in the right lower extremity and 2 accessory saphenous veins of the left calf are incompetent. LEAS were ordered 01/14/24 at recommendation of Dermatology. LEAS obtained on 02/09/2024 and demonstrate triphasic and biphasic Doppler waveforms at the right ankle and triphasic Doppler waveforms left ankle. PVR satisfactory at all levels bilaterally. Resting LAINE normal bilaterally. Digital brachial index normal bilateral. No evidence of arterial occlusive disease. Referral placed 04/07/24 with Vascular Surgery per request of Dermatology. Discussed signs and symptoms of infection. Discussed with her if she notices increasing redness about the ulcerative site that moves up the leg, purulent drainage from the ulcerative site, increasing foul odor from the ulcerative site, or if she develops fever greater than 101 degree, develops nausea, vomiting, chills, these are signs of a progressing infection and she should report to the ED for IV antibiotics. She voices understanding of this today. The following work up and care recommendations were made: Dressing: Clobetasol ointment and timolol drops, Adaptic, Dry sterile dressing. Change dressing daily Wash: Soap and water Tissue growth optimization: Clobetasol ointment and timolol drops Offload: To transition to full weightbearing to the right lower extremity in supportive shoe gear. foot. Patient was previously in CAM boot until surgical wound dehiscence. Transitioned back to surgical shoe to allow for decreased pressure at the wound site on the leg. Vascular: DP and PT pulses palpable with adequate capillary fill time to digits. Edema: Patient does have chronic venous insufficiency with bilateral lower extremity edema. Tubigrip compression is applied. Once wound is closed she will return to her prescription compression stockings. Infection: No signs of infection. Pain: May take [id number] Tylenol for discomfort Host factors: Chronic venous insufficiency, autoimmune disease, pyoderma gangrenosum I answered all the patient's questions. To return to the wound healing center in 2 weeks or call sooner if the patient has any questions or concerns. Will RTC for continued wound healing and postoperative care s/p primary repair of split tear of peroneal brevis tendon, primary repair of anterior tibiofibular ligament (AITFL), and syndesmotic repair via tight rope right lower extremity.
== END 2024-04-21 23:59 | disposition home or self-care (01) ==
LOC: WC 11:00
PROVIDERS: PCP Internal Medicine; Referring Provider Student in an Organized Health Care Education/Training Program; Visit Provider Student in an Organized Health Care Education/Training Program
DX: T81.31XA Disruption of external operation (surgical) wound, not elsewhere classified, initial encounter (principal); L97.311 Non-pressure chronic ulcer of right ankle limited to breakdown of skin; L88 Pyoderma gangrenosum; Z79.899 Other long term (current) drug therapy; I87.2 Venous insufficiency (chronic) (peripheral); R60.0 Localized edema; M79.3 Panniculitis, unspecified; S86.30 Unspecified injury of muscle(s) and tendon(s) of peroneal muscle group at lower leg level; S93.431S Sprain of tibiofibular ligament of right ankle, sequela
CPT/HCPCS: 87070; 87077; 87186; 87205; 97597; 99213; G0463

== ENCOUNTER 2024-05-05 11:14 | Outpatient (RCR) | payer MEDICARE, MEDICAID, SELFPAY ==
[2024-04-22 00:23] VITALS: BP 153/78; PULSE 98; RESP 18; TEMP 36.6
[2024-05-05 11:16] VITALS: BP 141/78; PULSE 74; RESP 18; TEMP 36.8
--- NOTE | 2024-05-05 12:36 | PN.PCM_ITS ---
History of Present Illness Date of Service: 05/05/24 Chief Complaint: Surgical wound dehiscence right leg History of Wound: Patient is a 38-year-old female who subsequently developed a surgical wound dehiscence of her right lateral lower extremity. She previously underwent surgery for primary repair of split tear of the peroneus brevis tendon, primary repair of anterior tibiofibular ligament (AITFL), and syndesmotic reduction via tight rope of the right lower extremity on 04/24/2023. Following removal of sutures she developed surgical wound dehiscence secondary to continued lower extremity swelling via chronic venous insufficiency. She did undergo debridement in office 06/05/2023 and Deidre was applied at this time with Tubigrip compression. She has worn compression stockings to manage lower extremity swelling prior to surgical intervention. Patient is also noted to have autoimmune disease and is managed by rheumatology with medication and did resume all medications 2 weeks post operative per rheumatology. She was referred to the wound care center for continued wound healing. She has been applying Deidre and dry sterile dressings daily. She denies N/V/F/chills. Denies further complaints. Subjective Subjective Patient is a 38-year-old female who presents to the wound care center today for f/u of a right lateral leg surgical dehiscence and medial ankle ulceration s/p repair of split tear of peroneal brevis tendon, AITFL ligament repair, and syndesmotic repair of the right ankle. She reports she is continuing to walk in the surgical shoe without difficulty. Continues to follow with dermatology and following instructions for dressing changes daily. Continues to follow their treatment plan. States she believes sites have closed. She denies constitutional symptoms today. Denies further complaints today. Objective Data Objective Data Vital Signs: Vital Signs Temp Pulse Resp BP 98.3 F 74 18 141/78 H 05/05/24 11:16 05/05/24 11:16 05/05/24 11:16 05/05/24 11:16 Physical Exam Const alert, oriented x3 and no apparent distress General Appearance: cooperative HEENT normocephalic Eyes General Eye: normal appearance of both eyes Neck General: normal visual inspection Lymph Lymphatic: no lymphadenopathy noted and no lymphedema noted Resp normal respiratory effort Cardio regular rate and regular rhythm Extremity no calf tenderness Extremity Narrative: Right Lower Extremity: Vascular DP and PT pulses palpable bilateral. Capillary fill time less than 3 seconds to digits bilateral. Normal temperature gradient. There is hair growth present to lower extremity and digits. Dermatological: There is bilateral lower extremity edema secondary to chronic venous stasis with some hemosiderin deposition noted about the right lower extremity. The surgical dehiscence of the proximal incision on the right lower extremity has healed. Surrounding skin does have resolving rubor secondary to chronic venous stasis in addition to autoimmune disease and lipodermatosclerosis. No signs of infection. Distal aspect of the incision right lateral leg is a well-healed cicatrix. Anterior lateral leg demonstrates well-healed cicatrix. No signs of infection. Medial ankle wound secondary to autoimmune response/lipodermatosclerosis with rubor noted with some tenderness to palpation. - Improving ulcerations with use of topical clobetasol ointment/timolol drops and are healed today. On 08/28/2023 she demonstrated worsening of the medial and lateral ulcerative sites with deep purple violaceous border and hypertrophy of the wound bed and was started on oral steroid for possible pyoderma gangrenosum. She returned again on 09/03/2023 following oral steroid with noted improvement in tissue color surrounding the ulcerative sites and decreasing hypertrophy of the wound bed tissue. Pain also noted to be improving following oral steroid. Debridement was stopped at this time. Musculoskeletal: Muscle strength 5 of 5 age-appropriate. No pain to palpation about the lateral leg of the right lower extremity. No pain to palpation calf. Debridement Note Debridement Note No debridement was completed: No debridement was completed today Post-Debridement Measurements and Additional Note: Post-Debridement Measurements/Treatment - Nurse 1 - General Ulcer Assessment Start: 05/05/24 11:16 Freq: Status: Active Protocol: STEFANOEXAmish Activity Type Activity Date Activity User E-sign Co-sign Detail Recorded Client Recorded Date Recorded By Document 05/05/24 11:16 HARI [id number] 05/05/24 11:21 RB 05/05/24 11:16 - Today's Visit Information Type of service Follow-up Visit (Physician/VIDEO CONFERENCE SPECIALIST ) Arrival Mode Ambulatory, Other Arrival Mode (Other) kneewalker Transfer Assistance None Patient Identification Verified (Name & Yes ) Patient Requires Transmission-Based No Precautions Vital Signs Temperature (97.8 F-99.1 F) 98.3 F Temperature Source Temporal Pulse Rate (60-100) 74 Pulse Location Monitor Respiratory Rate (12-18) 18 Respiratory rate source Observation Blood Pressure (90/60-120/80) 141/78 H Blood Pressure Mean (mm Hg) 99 Source Monitor Position Semi-Fowlers Blood Pressure Location Left Arm History Since Last Visit- (Skip if this is Patient's initial visit) Have you changed medications since your No last visit? Any new allergies or adverse reactions No Had a fall/change in ADL's that may No increase risk of falls Signs or symptoms of abuse and/or No neglect since last visit Have you been in the hospital since your No last visit? Has dressing in place as prescribed Yes Has compression in place as prescribed No Has offloadiing in place as prescribed No Experienced any changes in pain level or No management Pain Scale: 0-10 Numeric Is Patient Pain Free? No RLE -Description Aching -Intensity 5 -Duration (hours) Acute -Pain Behavior Guarding, Irritability, Withdrawal from Touch -Pain Aggravating Factors ADL's -Alleviating Factors/Interventions None WC - Nurse 1 - General Ulcer Measurement Start: 05/05/24 11:16 Freq: Status: Active Protocol: Activity Type Activity Date Activity User E-sign Co-sign Detail Recorded Client Recorded Date Recorded By Document 05/05/24 11:16 RB [id number] 05/05/24 11:21 RB 05/05/24 11:16 Wound Center Nurse 1 #2 RT MED ANKLE -Combined with other wound No -Current Size (cm) - Length 0.1 -Current Size (cm) - Width 0.1 -Current Size (cm) - Depth 0.1 -Total Square Cm 0.01 -Photo Taken Yes -Tunneling No -Undermining/Tunneling No -Circular Undermining No -Exudate Amt Medium -Exudate Type Serosanguineous -Wound Margin Indistinct, Non -Visible -Granulation Amt Large (67-100%) -Granulation Quality [place] -Slough/Fibrin Yes -Necrosis Amt Small (1-33%) -Necrotic Tissue Type Adherent Slough -Structure Exposed N/A -Texture (Meghan-wound Skin Appearance) Assessed, Scarring -Moisture (Mehgan-wound Skin Appearance) Assessed -Color (Meghan-wound Skin Appearance) Assessed -Temperature (Meghan-wound Skin No Abnormality Appearance) (Pt Warm) -Tenderness on Palpation (Meghan-wound No Skin Appearance) -Ulcer Cleansing Wound Cleanser -Foul Odor after Cleansing No -Anesthetic Used 5% Lidocaine Gel #1 RT LAT ANKLE CLUSTER -Combined with other wound No -Current Size (cm) - Length 0.1 -Current Size (cm) - Width 0.4 -Current Size (cm) - Depth 0.1 -Total Square Cm 0.04 -Photo Taken Yes -Tunneling No -Undermining/Tunneling No -Circular Undermining No -Exudate Amt Medium -Exudate Type Serosanguineous -Wound Margin Distinct, Outline Attached -Granulation Amt Medium (34-66%) -Granulation Quality [place] -Slough/Fibrin Yes -Necrosis Amt Small (1-33%) -Necrotic Tissue Type Adherent Slough -Structure Exposed N/A -Texture (Meghan-wound Skin Appearance) Assessed, Scarring -Moisture (Meghan-wound Skin Appearance) Assessed -Color (Meghan-wound Skin Appearance) Assessed -Temperature (Meghan-wound Skin No Abnormality Appearance) (Pt Warm) -Tenderness on Palpation (Meghan-wound No Skin Appearance) -Ulcer Cleansing Wound Cleanser -Foul Odor after Cleansing No -Anesthetic Used 5% Lidocaine Gel WC - Nurse 2 - General Ulcer CM Notes Start: 05/05/24 11:16 Freq: Status: Active Protocol: Activity Type Activity Date Activity User E-sign Co-sign Detail Recorded Client Recorded Date Recorded By Document 05/05/24 11:32 [facility] [id number] 05/05/24 11:33 [facility] 05/05/24 11:32 Wound Center Nurse 2 #2 RT MED ANKLE -Time 11:32 -Post Debridement (cm) - Length 0.1 -Post Debridement (cm) - Width 0.1 -Post Debridement (cm) - Depth 0.1 -Total Square (Post) (cm) 0.01 -Area of Debridement (cm) - Length 0.1 -Area of Debridement (cm) - Width 0.1 -Total Square (Area) (cm) 0.01 -Wound/Ulcer Outcome Not Healed -Bleeding Controlled with NA #1 RT LAT ANKLE CLUSTER -Time 11:33 -Post Debridement (cm) - Length 0.1 -Post Debridement (cm) - Width 0.1 -Post Debridement (cm) - Depth 0.1 -Total Square (Post) (cm) 0.01 -Area of Debridement (cm) - Length 0.1 -Area of Debridement (cm) - Width 0.1 -Total Square (Area) (cm) 0.01 -Bleeding Controlled with NA Pain Scale: 0-10 Numeric Is Patient Pain Free? Yes WC - Nurse 3 - General Ulcer D/C NN Start: 05/05/24 11:16 Freq: Status: Active Protocol: Activity Type Activity Date Activity User E-sign Co-sign Detail Recorded Client Recorded Date Recorded By Document 05/05/24 11:45 RB [id number] 05/05/24 11:46 RB 05/05/24 11:45 Wound Care Center Nurse 3 #2 RT MED ANKLE -Primary Dressing Covered/Secured with Dry Gauze & Roll Gauze, Secured with Tape #1 RT LAT ANKLE CLUSTER -Primary Dressing Covered/Secured with Dry Gauze & Roll Gauze, Secured with Tape Right -Tubular Bandage Single Layer -Size of Tubigrip Used Size E -Size E ($) 1 Treatment Response Procedure Tolerated Well Pain Scale: 0-10 Numeric Is Patient Pain Free? Yes WC - Visit Discharge Discharge Condition Stable Ambulatory Status Ambulatory, Walker Transportation Private Auto Medication Reconcilliation completed & No provided to patient/care provider Clinical Summary of Care Provided Yes Notes: kneewalker Assessment/Plan Assessment/Plan (1) Lipodermatosclerosis of right lower extremity: CODE(S): M79.3 - Panniculitis, unspecified (2) Pyoderma gangrenosum: CODE(S): L88 - Pyoderma gangrenosum (3) Non-pressure chronic ulcer of right calf with fat layer exposed: CODE(S): L97.212 - Non-pressure chronic ulcer of right calf with fat layer exposed (4) Non-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: CODE(S): L97.312 - Non-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 (5) Surgical wound dehiscence: CODE(S): T81.31XA - Disruption of external operation (surgical) wound, not elsewhere classified, initial encounter QUALIFIERS: Encounter type: subsequent encounter Qualified Code(s): T81.31XD - Disruption of external operation (surgical) wound, not elsewhere classified, subsequent encounter (6) Injury of peroneal tendon of right foot: CODE(S): S86.301A - Unspecified injury of muscle(s) and tendon(s) of peroneal muscle group at lower leg level, right leg, initial encounter QUALIFIERS: Encounter type: subsequent encounter Qualified Code(s): S86.301D - Unspecified injury of muscle(s) and tendon(s) of peroneal muscle group at lower leg level, right leg, subsequent encounter (7) Rupture of ligament of right ankle: CODE(S): S93.401A - Sprain of unspecified ligament of right ankle, initial encounter (8) Syndesmotic disruption of right ankle: CODE(S): S93.431A - Sprain of tibiofibular ligament of right ankle, initial encounter QUALIFIERS: Encounter type: subsequent encounter Qualified Code(s): S93.431D - Sprain of tibiofibular ligament of right ankle, subsequent encounter PLAN: Plan Patient seen and evaluated She presents today postoperatively s/p primary repair of split tear of peroneal brevis tendon, primary repair of anterior tibiofibular ligament (AITFL), and syndesmotic reduction via tight rope DOS 04/24/2023 Currently 1 year out of surgery. Denies pain to ankle but ammonia still operator about ulceration sites, she is continuing weight bearing to the Right foot. She reports incision did begin to open up on 06/02/2023. Dehiscence occurred 2 weeks following the removal of her sutures. States no pain along peroneal tendon or to eversion of the foot or at anterior lateral ankle overlying the ATIFL. Does have tenderness to the medial and lateral ankle ulceration secondary pyoderma gangrenosum. 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 She does have some occasional discomfort with the pyoderma. She has remained protective weightbearing to the right lower extremity with surgical shoe. Stiffness in the ankle has improved through continued use of therapy bands and home exercises. Discussed transition to supportive shoe gear as her ulcerations have healed. Dressings were removed today and site was inspected. Anterior lateral ankle demonstrates well-healed cicatrix. Lateral ankle demonstrates well-healed cicatrix distally and proximally ulceration, which has healed today. On 08/28/2023 she demonstrated worsening of the medial and lateral ulcerative sites with deep purple violaceous border and hypertrophy of the wound bed and was started on oral steroid for possible pyoderma gangrenosum. She returned again on 09/03/2023 following oral steroid with noted improvement in tissue color surrounding the ulcerative sites and decreasing hypertrophy of the wound bed tissue. Pain also noted to be improving following oral steroid at that time. Debridement was stopped and oral steroid was started continued for additional week following addition of topical Tacrolimus with plan to monitor response. Patient stated the pain improved following the use of the oral steroid and the steroid course was extended as I do feel she has pyoderma gangrenosum. 09/10/2023 she was prescribed topical tacrolimus 0.1% to apply the wound bed daily. Will continue the topical steroid which is working and she is demonstrating healing of ulcerative sites, will continue to monitor. Ulceration did not undergo debridement. Ulceration lateral leg healed. Medial ankle ulceration healed. She underwent biopsy of medial site on 12/29/23. Her pyoderma gangrenosum had responded well to the topical tacrolimus, but I felt she would benefit from dermatology referral, which was made. Will continue applying timolol drops daily, with use of clobetasol topical per Dermatology. Compression via compression stocking. She was also encouraged to elevate lower extremity at all times of rest for edema control. She did have some slight scant superficial purulence and thus she was empirically started on Doxycycline 100mg BID x 14 days (Stop date 05/05/24). Overall site has resolved with healing. Referral to dermatology on 12/10/23 for additional treatments. She had first appointment with dermatology on 12/29/2023. She reports a biopsy was performed. I have discussed biposy and treatment personally with Dr. Moralez. Dermatology wanted her to stop applying topical tacrolimus and apply timolol drops with 2 drops per wound twice a day and continue with compression stockings as they feel PG has settled down. Discussed corticosteroid injection with dermatology and they feel this is appropriate. Corticosteroid injection #1 performed 01/28/2024. Coricosteriod injection #2 performed 02/11/24. Ulceration sites responded well to injection. Discussed continuing timolol drops and clobetasol topical. Dermatology has started Humira 02/24/2024 but stopped due to developing rash. She has recently resumed without issue. There has been good decrease in size of the lateral ulceration and medial ulceration vs previous visit and both sites healed. Patient is currently on immunosuppressant agents for autoimmune disease, continues follow with Rheumatology. Discussed continuing range of motion exercises, working with resistance bands to increase lower extremity strength. Discussed physical therapy may be implemented to improve strength and motion to the right lower extremity. Discussed transition to supportive shoe gear to the right lower extremity as ulcerations are healed. Her gait is noted to be much improved versus prior to surgical intervention. At this time overall prognosis is good with healing of the sites but remains complicated due to surgical dehiscence/pyoderma gangrenosum, will continue timolol drops per derm. Will continue to follow with Dermatology. Venous studies were performed 07/09/2023, no evidence of DVT. Valvular competence appears intact within the proximal deep venous system bilaterally. Great saphenous vein appears bilaterally patent and compressible segmentally. Saphenofemoral junctions are bilaterally competent. There is segmental valvular incompetence noted in the great saphenous veins bilaterally, small saphenous veins patent and competent on the right and patent and incompetent on the left. There are several incompetent accessory saphenous veins and tributaries in the right lower extremity and 2 accessory saphenous veins of the left calf are incompetent. LEAS were ordered 01/14/24 at recommendation of Dermatology. LEAS obtained on 02/09/2024 and demonstrate triphasic and biphasic Doppler waveforms at the right ankle and triphasic Doppler waveforms left ankle. PVR satisfactory at all levels bilaterally. Resting LAINE normal bilaterally. Digital brachial index normal bilateral. No evidence of arterial occlusive disease. Referral placed 04/07/24 with Vascular Surgery per request of Dermatology. Discussed signs and symptoms of infection. Discussed with her if she notices increasing redness about the ulcerative site that moves up the leg, purulent drainage from the ulcerative site, increasing foul odor from the ulcerative site, or if she develops fever greater than 101 degree, develops nausea, vomiting, chills, these are signs of a progressing infection and she should report to the ED for IV antibiotics. She voices understanding of this today. The following work up and care recommendations were made: Dressing: Clobetasol ointment and timolol drops, Adaptic, Dry sterile dressing. Change dressing daily Wash: Soap and water Tissue growth optimization: Clobetasol ointment and timolol drops Offload: To transition to full weightbearing to the right lower extremity in supportive shoe gear. foot. Patient was previously in CAM boot until surgical wound dehiscence. Transitioned back to surgical shoe to allow for decreased pressure at the wound site on the leg. With wounds healed she may return to shoe gear. Vascular: DP and PT pulses palpable with adequate capillary fill time to digits. Edema: Patient does have chronic venous insufficiency with bilateral lower extremity edema. With wound closed she will return to her prescription compression stockings. Infection: No signs of infection. Pain: May take [id number] Tylenol for discomfort Host factors: Chronic venous insufficiency, autoimmune disease, pyoderma gang renosum I answered all the patient's questions. To return to the wound healing center in 3 weeks or call sooner if the patient has any questions or concerns. Discussed if all continues to remain closed we will discharge from wound center and have final visit in office for updated radiographs. Will RTC for continued wound healing and postoperative care s/p primary repair of split tear of peroneal brevis tendon, primary repair of anterior tibiofibular ligament (AITFL), and syndesmotic repair via tight rope right lower extremity.
--- NOTE | 2024-05-06 09:03 | WC ---
PHOTO ESTHER MARIN
--- NOTE | 2024-05-06 09:03 | WC ---
PHOTO ESTHER MARIN
--- NOTE | 2024-05-06 09:04 | WC ---
PHOTO 05/05/24 RIGHT MEDIAL
--- NOTE | 2024-05-06 09:04 | WC ---
PHOTO 05/05/24 RIGHT MEDIAL
--- NOTE | 2024-05-09 09:00 | WC ---
PHOTO 05/05/24 RIGHT LATERAL LEG
--- NOTE | 2024-05-09 09:00 | WC ---
PHOTO 05/05/24 RIGHT LATERAL LEG
--- NOTE | 2024-05-09 09:02 | WC ---
PHOTO 05/05/24 RIGHT [facility] ANKLE
--- NOTE | 2024-05-09 09:02 | WC ---
PHOTO 05/05/24 RIGHT [facility] ANK[facility]
== END 2024-05-21 23:59 | disposition home or self-care (01) ==
LOC: WC 11:14
PROVIDERS: PCP Internal Medicine; Referring Provider Student in an Organized Health Care Education/Training Program; Visit Provider Student in an Organized Health Care Education/Training Program
DX: Z09 Encounter for follow-up examination after completed treatment for conditions other than malignant neoplasm (principal); L88 Pyoderma gangrenosum; I87.2 Venous insufficiency (chronic) (peripheral); R60.0 Localized edema; M79.3 Panniculitis, unspecified; Z79.899 Other long term (current) drug therapy
CPT/HCPCS: 99213; G0463

== ENCOUNTER → 2024-05-10 | Outpatient (CLI) | payer MEDICARE, MEDICAID, SELFPAY | END | disposition home or self-care (01) | LOC: LABSPEC 13:01 | PROVIDERS: PCP Internal Medicine; Referring Provider Dermatology; Visit Provider Dermatology | DX: L88 Pyoderma gangrenosum (principal); M79.3 Panniculitis, unspecified; I89.0 Lymphedema, not elsewhere classified | CPT/HCPCS: 87070; 87077; 87186; 87205 ==

== ENCOUNTER → 2024-06-01 | Outpatient (CLI) | payer MEDICARE, MEDICAID, SELFPAY | END | disposition home or self-care (01) | LOC: LABSPEC 13:09 | PROVIDERS: PCP Internal Medicine; Referring Provider Dermatology; Visit Provider Dermatology | DX: L88 Pyoderma gangrenosum (principal); M79.3 Panniculitis, unspecified; I89.0 Lymphedema, not elsewhere classified | CPT/HCPCS: 87070; 87077; 87186; 87205 ==

== ENCOUNTER 2024-06-09 11:00 | Outpatient (RCR) | payer MEDICARE, MEDICAID, SELFPAY ==
[2024-05-22 00:43] VITALS: BP 153/78; PULSE 98; RESP 18; TEMP 36.6
[2024-05-26 11:14] VITALS: BP 139/77; PULSE 95; RESP 18; TEMP 36.2
--- NOTE | 2024-05-26 12:31 | PN.PCM_ITS ---
History of Present Illness Date of Service: 05/26/24 Chief Complaint: Surgical wound dehiscence right leg History of Wound: Patient is a 38-year-old female who subsequently developed a surgical wound dehiscence of her right lateral lower extremity. She previously underwent surgery for primary repair of split tear of the peroneus brevis tendon, primary repair of anterior tibiofibular ligament (AITFL), and syndesmotic reduction via tight rope of the right lower extremity on 04/24/2023. Following removal of sutures she developed surgical wound dehiscence secondary to continued lower extremity swelling via chronic venous insufficiency. She did undergo debridement in office 06/05/2023 and Deidre was applied at this time with Tubigrip compression. She has worn compression stockings to manage lower extremity swelling prior to surgical intervention. Patient is also noted to have autoimmune disease and is managed by rheumatology with medication and did resume all medications 2 weeks post operative per rheumatology. She was referred to the wound care center for continued wound healing. She has been applying Deidre and dry sterile dressings daily. She denies N/V/F/chills. Denies further complaints. Subjective Subjective Patient is a 39-year-old female who presents to the wound care center today for f/u of a right lateral leg surgical dehiscence and medial ankle ulceration s/p repair of split tear of peroneal brevis tendon, AITFL ligament repair, and syndesmotic repair of the right ankle. She reports she is continuing to walk in the surgical shoe without difficulty. Continues to follow with dermatology and following instructions for dressing changes daily. Continues to follow their treatment plan. Sites have re-opened with some scant purulent drainage. She continues oral antibiotics as instructed. She denies constitutional symptoms today. Denies further complaints today. Objective Data Objective Data Vital Signs: Vital Signs Temp Pulse Resp BP O2 Del Method 97.2 F L 95 18 139/77 H Room Air 05/26/24 11:14 05/26/24 11:14 05/26/24 11:14 05/26/24 11:14 05/26/24 11:14 Oxygen Delivery Method Room Air Physical Exam Const alert, oriented x3 and no apparent distress General Appearance: cooperative HEENT normocephalic Eyes General Eye: normal appearance of both eyes Neck General: normal visual inspection Lymph Lymphatic: no lymphadenopathy noted and no lymphedema noted Resp normal respiratory effort Cardio regular rate and regular rhythm Extremity Extremity Narrative: Right Lower Extremity: Vascular DP and PT pulses palpable bilateral. Capillary fill time less than 3 seconds to digits bilateral. Normal temperature gradient. There is hair growth present to lower extremity and digits. Dermatological: There is bilateral lower extremity edema secondary to chronic venous stasis with some hemosiderin deposition noted about the right lower extremity. The surgical dehiscence of the proximal incision on the right lower extremity with small area of granular tissue. Surrounding skin does have resolving rubor secondary to chronic venous stasis in addition to autoimmune disease and lipodermatosclerosis. No signs of infection. Distal aspect of the incision right lateral leg is a well-healed cicatrix. Anterior lateral leg demonstrates well-healed cicatrix. No signs of infection. Medial ankle wound secondary to autoimmune response/lipodermatosclerosis with rubor noted with some tenderness to palpation and scant purulence. On 08/28/2023 she demonstrated worsening of the medial and lateral ulcerative sites with deep purple violaceous border and hypertrophy of the wound bed and was started on oral steroid for possible pyoderma gangrenosum. She returned again on 09/03/2023 following oral steroid with noted improvement in tissue color surrounding the ulcerative sites and decreasing hypertrophy of the wound bed tissue. Pain also noted to be improving following oral steroid. Debridement was stopped at this time and treated as PG. Musculoskeletal: Muscle strength 5 of 5 age-appropriate. No pain to palpation about the lateral leg of the right lower extremity. No pain to palpation calf. Skin no rashes or lesions noted and skin turgor normal General Skin Exam: venous stasis and dermatitis Neuro moves all extremities Debridement Note Debridement Note No debridement was completed: No debridement was completed today Post-Debridement Measurements and Additional Note: Post-Debridement Measurements/Treatment - Nurse 1 - General Ulcer Assessment Start: 05/26/24 11:14 Freq: Status: Active Protocol: [email or web address] Activity Type Activity Date Activity User E-sign Co-sign Detail Recorded Client Recorded Date Recorded By Document 05/26/24 11:14 EVENS [id number] 05/26/24 11:20 EVENS 05/26/24 11:14 - Today's Visit Information Type of service Follow-up Visit (Physician/CAR LOADER ) Arrival Mode Ambulatory, Other Arrival Mode (Other) knee scooter Patient Identification Verified (Name & Yes ) Patient Requires Transmission-Based No Precautions Safety Precautions Fall Prevention Vital Signs Temperature (97.8 F-99.1 F) 97.2 F L Temperature Source Temporal Pulse Rate (60-100) 95 Pulse Location Monitor Respiratory Rate (12-18) 18 Respiratory rate source Observation Oxygen Delivery Method Room Air Blood Pressure (90/60-120/80) 139/77 H Blood Pressure Mean (mm Hg) 97 Source Monitor Position Sitting Blood Pressure Location Right Forearm History Since Last Visit- (Skip if this is Patient's initial visit) Have you changed medications since your No last visit? Any new allergies or adverse reactions No Had a fall/change in ADL's that may No increase risk of falls Signs or symptoms of abuse and/or No neglect since last visit Have you been in the hospital since your No last visit? Has dressing in place as prescribed Yes Has compression in place as prescribed Yes Has offloadiing in place as prescribed Yes Experienced any changes in pain level or No management Left Footwear Regular Shoe Right Footwear Surgical Shoe with pressure relief insole Pain Scale: 0-10 Numeric Is Patient Pain Free? No RLE -Description Aching -Intensity 5 -Duration (hours) Chronic -Pain Aggravating Factors Exercise/ Activity, Standing -Alleviating Factors/Interventions Will continue to monitor, Emotional Support WC - Nurse 1 - General Ulcer Measurement Start: 05/26/24 11:14 Freq: Status: Active Protocol: Activity Type Activity Date Activity User E-sign Co-sign Detail Recorded Client Recorded Date Recorded By Document 05/26/24 11:20 DS [id number] 05/26/24 11:27 DS 05/26/24 11:20 Wound Center Nurse 1 #2 RT MED ANKLE -Current Size (cm) - Length 0.1 -Current Size (cm) - Width 0.1 -Current Size (cm) - Depth 0.1 -Total Square Cm 0.01 -Photo Taken No -Tunneling No -Undermining/Tunneling No -Circular Undermining No -Exudate Amt Small -Exudate Type Serosanguineous -Wound Margin Distinct, Outline Attached -Granulation Amt Medium (34-66%) -Granulation Quality Surfside -Texture (Meghan-wound Skin Appearance) Assessed -Moisture (Meghan-wound Skin Appearance) Assessed -Color (Meghan-wound Skin Appearance) Assessed -Temperature (Meghan-wound Skin No Abnormality Appearance) (Pt Warm) -Tenderness on Palpation (Meghan-wound No Skin Appearance) -Ulcer Cleansing Soap and Water -Anesthetic Used 5% Lidocaine Gel #1 RT LAT ANKLE CLUSTER -Current Size (cm) - Length 0.3 -Current Size (cm) - Width 0.2 -Current Size (cm) - Depth 0.1 -Total Square Cm 0.06 -Photo Taken No -Tunneling No -Undermining/Tunneling No -Circular Undermining No -Exudate Amt Large -Exudate Type Serosanguineous -Wound Margin Distinct, Outline Attached -Granulation Amt Medium (34-66%) -Granulation Quality Surfside -Texture (Meghan-wound Skin Appearance) Assessed -Moisture (Meghan-wound Skin Appearance) Assessed -Color (Meghan-wound Skin Appearance) Assessed, Erythema -Temperature (Meghan-wound Skin No Abnormality Appearance) (Pt Warm) -Ulcer Cleansing Soap and Water -Foul Odor after Cleansing No -Anesthetic Used 5% Lidocaine Gel Right Calf (cm) 43.2 Right Ankle (cm) 28.0 WC - Nurse 2 - General Ulcer CM Notes Start: 05/26/24 11:14 Freq: Status: Active Protocol: Activity Type Activity Date Activity User E-sign Co-sign Detail Recorded Client Recorded Date Recorded By Document 05/26/24 11:48 [facility] [id number] 05/26/24 12:00 [facility] 05/26/24 11:48 Wound Center Nurse 2 #2 RT MED ANKLE -Time 11:48 -Post Debridement (cm) - Length 0.1 -Post Debridement (cm) - Width 0.1 -Post Debridement (cm) - Depth 0.1 -Total Square (Post) (cm) 0.01 -Area of Debridement (cm) - Length 0.1 -Area of Debridement (cm) - Width 0.1 -Total Square (Area) (cm) 0.01 -Wound/Ulcer Outcome Not Healed -Bleeding Controlled with NA #1 RT LAT ANKLE CLUSTER -Time 11:49 -Post Debridement (cm) - Length 0.1 -Post Debridement (cm) - Width 0.1 -Post Debridement (cm) - Depth 0.1 -Total Square (Post) (cm) 0.01 -Area of Debridement (cm) - Length 0.1 -Area of Debridement (cm) - Width 0.1 -Total Square (Area) (cm) 0.01 -Wound/Ulcer Outcome Not Healed -Bleeding Controlled with NA Pain Scale: 0-10 Numeric Is Patient Pain Free? Yes WC - Nurse 3 - General Ulcer D/C NN Start: 05/26/24 11:14 Freq: Status: Active Protocol: Activity Type Activity Date Activity User E-sign Co-sign Detail Recorded Client Recorded Date Recorded By Document 05/26/24 12:06 ROBERT [id number] 05/26/24 12:07 ROBERT 05/26/24 12:06 Wound Care Center Nurse 3 #2 RT MED ANKLE -Primary Dressing Covered/Secured with Dry Gauze & Roll Gauze, Secured with Tape #1 RT LAT ANKLE CLUSTER -Primary Dressing Covered/Secured with Dry Gauze Right -Tubular Bandage Single Layer -Size of Tubigrip Used Size E -Size E ($) 1 Pain Scale: 0-10 Numeric Is Patient Pain Free? 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 (3) Pyoderma gangrenosum: CODE(S): L88 - Pyoderma gangrenosum (4) Lipodermatosclerosis of right lower extremity: CODE(S): M79.3 - Panniculitis, unspecified (5) Venous insufficiency (chronic) (peripheral): CODE(S): I87.2 - Venous insufficiency (chronic) (peripheral) (6) Surgical wound dehiscence: CODE(S): T81.31XA - Disruption of external operation (surgical) wound, not elsewhere classified, initial encounter QUALIFIERS: Encounter type: subsequent encounter Qualified Code(s): T81.31XD - Disruption of external operation (surgical) wound, not elsewhere classified, subsequent encounter PLAN: Plan Patient seen and evaluated She presents today postoperatively s/p primary repair of split tear of peroneal brevis tendon, primary repair of anterior tibiofibular ligament (AITFL), and syndesmotic reduction via tight rope DOS 04/24/2023 Currently 1 year out of surgery. Denies pain to ankle but warp bleaching vat tender about ulceration sites, she is continuing weight bearing to the Right foot. She reports incision did begin to open up on 06/02/2023. Dehiscence occurred 2 weeks following the removal of her sutures and after ambulation in CAM boot. States no pain along peroneal tendon or to eversion of the foot or at anterior lateral ankle overlying the ATIFL. Does have tenderness to the medial and lateral ankle ulceration secondary pyoderma gangrenosum. 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 She does have some occasional discomfort with the pyoderma. She has remained protective weightbearing to the right lower extremity with surgical shoe. Stiffness in the ankle has improved through continued use of therapy bands and home exercises. Discussed transition to supportive shoe gear as her ulcerations have healed. Dressings were removed today and site was inspected. Anterior lateral ankle demonstrates well-healed cicatrix. Lateral ankle demonstrates well-healed cicatrix distally and proximally ulceration, which has healed today. Has been treated for PG with good healing noted however ulcerations have re- opened and are likely complicated by venous pressure vs possible infection. Thus discussed ordering MRI for further evaluation. Discussed with her if the previous hardware did have infection she would need to return for I&D with removal of the hardware component. She is understanding of this. Ulceration did not undergo debridement. Ulceration lateral leg re-opened measuring 0.1cm x 0.1cm with scant purulent drainage. Medial ankle ulceration reopened measuring 0.1cm x 0.1cm with scant purulent drainage. Currently on oral Doxycycline. She underwent biopsy of medial site on 12/29/23. Her pyoderma gangrenosum had responded well to the topical tacrolimus, but I felt she would benefit from dermatology referral, which was made. Will continue applying timolol drops daily, with use of clobetasol topical per Dermatology. Compression via compression stocking. She was also encouraged to elevate lower extremity at all times of rest for edema control. She did have some slight scant superficial purulence and thus she was empirically started on Doxycycline 100mg BID x 14 days (Stop date 05/30/24). Culture demonstrated MSSA. Overall site has resolved with healing. Referral to dermatology on 12/10/23 for additional treatments. She had first appointment with dermatology on 12/29/2023. She reports a biopsy was performed. I have discussed biposy and treatment personally with Dr. Moralez. Dermatology wanted her to stop applying topical tacrolimus and apply timolol drops with 2 drops per wound twice a day and continue with compression stockings as they feel PG has settled down. Discussed corticosteroid injection with dermatology and they did feel this would be appropriate. Corticosteroid injection #1 performed 01/28/2024. Coricosteriod injection #2 performed 02/11/24. Ulceration sites responded well to injection. Discussed continuing timolol drops and clobetasol topical. Dermatology has started Humira. Patient is currently on immunosuppressant agents for autoimmune disease, continues follow with Rheumatology. Discussed transition to supportive shoe gear to the right lower extremity as ulcerations are healed. Her gait is noted to be much improved versus prior to surgical intervention. At this time overall prognosis is good with healing of the sites but remains complicated due to surgical dehiscence/pyoderma gangrenosum, will continue timolol drops per derm. Will continue to follow with Dermatology. Venous studies were performed 07/09/2023, no evidence of DVT. Valvular competence appears intact within the proximal deep venous system bilaterally. Great saphenous vein appears bilaterally patent and compressible segmentally. Saphenofemoral junctions are bilaterally competent. There is segmental valvular incompetence noted in the great saphenous veins bilaterally, small saphenous vei ns patent and competent on the right and patent and incompetent on the left. There are several incompetent accessory saphenous veins and tributaries in the right lower extremity and 2 accessory saphenous veins of the left calf are incompetent. LEAS were ordered 01/14/24 at recommendation of Dermatology. LEAS obtained on 02/09/2024 and demonstrate triphasic and biphasic Doppler waveforms at the right ankle and triphasic Doppler waveforms left ankle. PVR satisfactory at all levels bilaterally. Resting LAINE normal bilaterally. Digital brachial index normal bilateral. No evidence of arterial occlusive disease. Referral placed 04/07/24 with Vascular Surgery per request of Dermatology. Discussed signs and symptoms of infection. Discussed with her if she notices increasing redness about the ulcerative site that moves up the leg, purulent drainage from the ulcerative site, increasing foul odor from the ulcerative site, or if she develops fever greater than 101 degree, develops nausea, vom iting, chills, these are signs of a progressing infection and she should report to the ED for IV antibiotics. She voices understanding of this today. The following work up and care recommendations were made: Dressing: Clobetasol ointment and timolol drops, Adaptic, Dry sterile dressing. Change dressing daily Wash: Soap and water Tissue growth optimization: Clobetasol ointment and timolol drops Offload: To transition to full weightbearing to the right lower extremity in supportive shoe gear. foot. Patient was previously in CAM boot until surgical wound dehiscence. Transitioned back to surgical shoe to allow for decreased pressure at the wound site on the leg. With wounds healed she may return to shoe gear. Vascular: DP and PT pulses palpable with adequate capillary fill time to digits. Edema: Patient does have chronic venous insufficiency with bilateral lower extremity edema. With wound closed she will return to her prescription compression stockings. Infection: No signs of infection. Pain: May take [id number] Tylenol for discomfort Host factors: Chronic venous insufficiency, autoimmune disease, pyoderma gangrenosum I answered all the patient's questions. To return to the wound healing center in 2 weeks or call sooner if the patient has any questions or concerns. Will undergo MRI for further evaluation on June 29 2024. Will RTC for continued wound healing and postoperative care s/p primary repair of split tear of peroneal brevis tendon, primary repair of anterior tibiofibular ligament (AITFL), and syndesmotic repair via tight rope right lower extremity.
[2024-06-09 11:02] VITALS: BP 149/81; PULSE 87; RESP 18; TEMP 35.9
--- NOTE | 2024-06-09 11:16 | PCM.WC.PN ---
History of Present Illness Date of Service: 06/09/24 Chief Complaint: Surgical wound dehiscence right leg History of Wound: Patient is a 38-year-old female who subsequently developed a surgical wound dehiscence of her right lateral lower extremity. She previously underwent surgery for primary repair of split tear of the peroneus brevis tendon, primary repair of anterior tibiofibular ligament (AITFL), and syndesmotic reduction via tight rope of the right lower extremity on 04/24/2023. Following removal of sutures she developed surgical wound dehiscence secondary to continued lower extremity swelling via chronic venous insufficiency. She did undergo debridement in office 06/05/2023 and Deidre was applied at this time with Tubigrip compression. She has worn compression stockings to manage lower extremity swelling prior to surgical intervention. Patient is also noted to have autoimmune disease and is managed by rheumatology with medication and did resume all medications 2 weeks post operative per rheumatology. She was referred to the wound care center for continued wound healing. She has been applying Deidre and dry sterile dressings daily. She denies N/V/F/chills. Denies further complaints. Subjective Subjective Patient is a 39-year-old female who presents to the wound care center today for f/u of a right lateral leg surgical dehiscence and medial ankle ulceration s/p repair of split tear of peroneal brevis tendon, AITFL ligament repair, and syndesmotic repair of the right ankle. She reports she is continuing to walk in the surgical shoe without difficulty. Continues to follow with dermatology and following instructions for dressing changes daily. Has stopped applying clobetasol and timolol drops per dermatology. Medial ulceration remains open with some scant purulent drainage. She continues oral antibiotics as instructed. Awaiting MRI June 29. She denies constitutional symptoms today. Denies further complaints today. Objective Data Objective Data Vital Signs: Vital Signs Temp Pulse Resp BP O2 Del Method 96.7 F L 87 18 149/81 H Room Air 06/09/24 11:02 06/09/24 11:02 06/09/24 11:02 06/09/24 11:02 06/09/24 11:02 Oxygen Delivery Method Room Air Physical Exam Const alert, oriented x3 and no apparent distress General Appearance: cooperative HEENT normocephalic Eyes General Eye: normal appearance of both eyes Neck General: normal visual inspection Lymph Lymphatic: no lymphadenopathy noted and no lymphedema noted Resp normal respiratory effort Cardio regular rate and regular rhythm Extremity Extremity Narrative: Right Lower Extremity: Vascular DP and PT pulses palpable bilateral. Capillary fill time less than 3 seconds to digits bilateral. Normal temperature gradient. There is hair growth present to lower extremity and digits. Dermatological: There is bilateral lower extremity edema secondary to chronic venous stasis with some hemosiderin deposition noted about the right lower extremity. The surgical dehiscence of the proximal incision on the right lower extremity with small area of granular tissue. Surrounding skin does have resolving rubor secondary to chronic venous stasis in addition to autoimmune disease and lipodermatosclerosis. No signs of infection. Distal aspect of the incision right lateral leg is a well-healed cicatrix. Anterior lateral leg demonstrates well-healed cicatrix. No signs of infection. Medial ankle wound secondary to autoimmune response/lipodermatosclerosis with rubor noted with some tenderness to palpation and scant purulence. On 08/28/2023 she demonstrated worsening of the medial and lateral ulcerative sites with deep purple violaceous border and hypertrophy of the wound bed and was started on oral steroid for possible pyoderma gangrenosum. She returned again on 09/03/2023 following oral steroid with noted improvement in tissue color surrounding the ulcerative sites and decreasing hypertrophy of the wound bed tissue. Pain also noted to be improving following oral steroid. Debridement was stopped at this time and treated as PG. Musculoskeletal: Muscle strength 5 of 5 age-appropriate. No pain to palpation about the lateral leg of the right lower extremity. No pain to palpation calf. Skin no rashes or lesions noted and skin turgor normal General Skin Exam: venous stasis and dermatitis Neuro moves all extremities Debridement Note Debridement Note No debridement was completed: No debridement was completed today Post-Debridement Measurements and Additional Note: Post-Debridement Measurements/Treatment NEELA - Nurse 1 - General Ulcer Assessment Start: 05/26/24 11:14 Freq: Status: Active Protocol: LAURIE Activity Type Activity Date Activity User E-sign Co-sign Detail Recorded Client Recorded Date Recorded By Document 05/26/24 11:14 DS [id number] 05/26/24 11:20 DS Document 06/09/24 11:02 KW [id number] 06/09/24 11:13 KW 05/26/24 06/09/24 11:14 11:02 - Today's Visit Information Type of service Follow-up Visit Follow-up Visit (Physician/WEB EDITOR (Physician/WEB EDITOR ) ) Arrival Mode Ambulatory, Ambulatory Other Arrival Mode (Other) knee scooter Patient Identification Verified (Name & Yes Yes ) Patient Requires Transmission-Based No Precautions Safety Precautions Fall Prevention Vital Signs Temperature (97.8 F-99.1 F) 97.2 F L 96.7 F L Temperature Source Temporal Temporal Pulse Rate (60-100) 95 87 Pulse Location Monitor Monitor Respiratory Rate (12-18) 18 18 Respiratory rate source Observation Observation Oxygen Delivery Method Room Air Room Air Blood Pressure (90/60-120/80) 139/77 H 149/81 H Blood Pressure Mean (mm Hg) 97 103 Source Monitor Monitor Position Sitting Semi-Fowlers Blood Pressure Location Right Forearm Left Forearm History Since Last Visit- (Skip if this is Patient's initial visit) Have you changed medications since your No No last visit? Any new allergies or adverse reactions No No Had a fall/change in ADL's that may No No increase risk of falls Signs or symptoms of abuse and/or No No neglect since last visit Have you been in the hospital since your No No last visit? Has dressing in place as prescribed Yes Yes Has compression in place as prescribed Yes Yes Has offloadiing in place as prescribed Yes N/A Experienced any changes in pain level or No No management Left Footwear Regular Shoe Regular Shoe Right Footwear Surgical Shoe Regular Shoe with pressure relief insole Pain Scale: 0-10 Numeric Is Patient Pain Free? No Yes RLE -Description Aching -Intensity 5 -Duration (hours) Chronic -Pain Aggravating Factors Exercise/ Activity, Standing -Alleviating Factors/Interventions Will continue to monitor, Emotional Support WC - Nurse 1 - General Ulcer Measurement Start: 05/26/24 11:14 Freq: Status: Active Protocol: Activity Type Activity Date Activity User E-sign Co-sign Detail Recorded Client Recorded Date Recorded By Document 05/26/24 11:20 DS [id number] 05/26/24 11:27 DS Document 06/09/24 11:02 KW [id number] 06/09/24 11:13 KW 05/26/24 06/09/24 11:20 11:02 Wound Center Nurse 1 #2 RT MED ANKLE -Current Size (cm) - Length 0.1 0.1 -Current Size (cm) - Width 0.1 0.1 -Current Size (cm) - Depth 0.1 0.1 -Total Square Cm 0.01 0.01 -Photo Taken No -Tunneling No -Undermining/Tunneling No -Circular Undermining No -Exudate Amt Small Small -Exudate Type Serosanguineous Serosanguineous -Wound Margin Distinct, Distinct, Outline Outline Attached Attached -Granulation Amt Medium (34-66%) -Granulation Quality [place] -Texture (Meghan-wound Skin Appearance) Assessed Assessed -Moisture (Meghan-wound Skin Appearance) Assessed Assessed -Color (Meghan-wound Skin Appearance) Assessed Assessed -Temperature (Meghan-wound Skin No Abnormality No Abnormality Appearance) (Pt Warm) (Pt Warm) -Tenderness on Palpation (Meghan-wound No No Skin Appearance) -Ulcer Cleansing Soap and Water Rinsed/ Irrigated with Saline -Foul Odor after Cleansing No -Anesthetic Used 5% Lidocaine 5% Lidocaine Gel Gel #1 RT LAT ANKLE CLUSTER -Current Size (cm) - Length 0.3 0.1 -Current Size (cm) - Width 0.2 0.1 -Current Size (cm) - Depth 0.1 0.1 -Total Square Cm 0.06 0.01 -Photo Taken No -Tunneling No -Undermining/Tunneling No -Circular Undermining No -Exudate Amt Large Small -Exudate Type Serosanguineous Serosanguineous -Wound Margin Distinct, Distinct, Outline Outline Attached Attached -Granulation Amt Medium (34-66%) -Granulation Quality [place] -Texture (Meghan-wound Skin Appearance) Assessed Assessed -Moisture (Meghan-wound Skin Appearance) Assessed Assessed -Color (Meghan-wound Skin Appearance) Assessed, Assessed Erythema -Temperature (Meghan-wound Skin No Abnormality No Abnormality Appearance) (Pt Warm) (Pt Warm) -Tenderness on Palpation (Meghan-wound No Skin Appearance) -Ulcer Cleansing Soap and Water Rinsed/ Irrigated with Saline -Foul Odor after Cleansing No No -Anesthetic Used 5% Lidocaine 5% Lidocaine Gel Gel Right Calf (cm) 43.2 Right Ankle (cm) 28.0 WC - Nurse 2 - General Ulcer CM Notes Start: 05/26/24 11:14 Freq: Status: Active Protocol: Activity Type Activity Date Activity User E-sign Co-sign Detail Recorded Client Recorded Date Recorded By Document 05/26/24 11:48 [facility] [id number] 05/26/24 12:00 [facility] 05/26/24 11:48 Wound Center Nurse 2 #2 RT MED ANKLE -Time 11:48 -Post Debridement (cm) - Length 0.1 -Post Debridement (cm) - Width 0.1 -Post Debridement (cm) - Depth 0.1 -Total Square (Post) (cm) 0.01 -Area of Debridement (cm) - Length 0.1 -Area of Debridement (cm) - Width 0.1 -Total Square (Area) (cm) 0.01 -Wound/Ulcer Outcome Not Healed -Bleeding Controlled with NA #1 RT LAT ANKLE CLUSTER -Time 11:49 -Post Debridement (cm) - Length 0.1 -Post Debridement (cm) - Width 0.1 -Post Debridement (cm) - Depth 0.1 -Total Square (Post) (cm) 0.01 -Area of Debridement (cm) - Length 0.1 -Area of Debridement (cm) - Width 0.1 -Total Square (Area) (cm) 0.01 -Wound/Ulcer Outcome Not Healed -Bleeding Controlled with NA Pain Scale: 0-10 Numeric Is Patient Pain Free? Yes - Nurse 3 - General Ulcer D/C NN Start: 05/26/24 11:14 Freq: Status: Active Protocol: Activity Type Activity Date Activity User E-sign Co-sign Detail Recorded Client Recorded Date Recorded By Document 05/26/24 12:06 [id number] 05/26/24 12:07 ROBERT 05/26/24 12:06 Wound Care Center Nurse 3 #2 RT MED ANKLE -Primary Dressing Covered/Secured with Dry Gauze & Roll Gauze, Secured with Tape #1 RT LAT ANKLE CLUSTER -Primary Dressing Covered/Secured with Dry Gauze Right -Tubular Bandage Single Layer -Size of Tubigrip Used Size E -Size E ($) 1 Pain Scale: 0-10 Numeric Is Patient Pain Free? 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 (3) Pyoderma gangrenosum: CODE(S): L88 - Pyoderma gangrenosum (4) Lipodermatosclerosis of right lower extremity: CODE(S): M79.3 - Panniculitis, unspecified (5) Venous insufficiency (chronic) (peripheral): CODE(S): I87.2 - Venous insufficiency (chronic) (peripheral) (6) Surgical wound dehiscence: CODE(S): T81.31XA - Disruption of external operation (surgical) wound, not elsewhere classified, initial encounter QUALIFIERS: Encounter type: subsequent encounter Qualified Code(s): T81.31XD - Disruption of external operation (surgical) wound, not elsewhere classified, subsequent encounter PLAN: Plan Patient seen and evaluated She presents today postoperatively s/p primary repair of split tear of peroneal brevis tendon, primary repair of anterior tibiofibular ligament (AITFL), and syndesmotic reduction via tight rope DOS 04/24/2023 Currently over 1 year out of surgery. Denies pain to ankle but still worker helper about ulceration sites, she is continuing weight bearing to the Right foot. She reports incision did begin to open up on 06/02/2023. Dehiscence occurred 2 weeks following the removal of her sutures and after ambulation in CAM boot. States no pain along peroneal tendon or to eversion of the foot or at anterior lateral ankle overlying the ATIFL. Does have tenderness to the medial and lateral ankle ulceration secondary pyoderma gangrenosum. 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 She does have some occasional discomfort with the pyoderma. She has remained protective weightbearing to the right lower extremity with surgical shoe. Discussed transition to supportive shoe gear as her ulcerations have healed. Dressings were removed today and site was inspected. Anterior lateral ankle demonstrates well-healed cicatrix. Lateral ankle demonstrates well-healed cicatrix distally and most proximally. Ulceration did not undergo debridement. Ulceration lateral leg re-opened at central portion just proximal to lateral malleolus measuring 0.1cm x 0.1cm with scant purulent drainage. Medial ankle ulceration reopened measuring 0.1cm x 0.1cm with scant purulent drainage. Currently on oral Doxycycline for positive MSSA culture. Has been treated for PG with good healing noted however ulcerations have re-opened and are likely complicated by venous pressure vs possible infection. MRI was ordered for further evaluation, awaiting study on June 29, 2024. Discussed with her if the previous hardware did have infection she would need to return for I&D with removal of the hardware component. She is understanding of this. She underwent biopsy of medial site on 12/29/23. Her pyoderma gangrenosum had responded well to the topical tacrolimus, but I felt she would benefit from dermatology referral, which was made. Will continue applying timolol drops daily, with use of clobetasol topical per Dermatology. Compression via compression stocking. She was also encouraged to elevate lower extremity at all times of rest for edema control. Referral to dermatology on 12/10/23 for additional treatments. She had first appointment with dermatology on 12/29/2023. She reports a biopsy was performed. I have discussed biposy and treatment personally with Dr. Moralez. Dermatology wanted her to stop applying topical tacrolimus and apply timolol drops with 2 drops per wound twice a day and continue with compression stockings as they feel PG has settled down. Discussed corticosteroid injection with dermatology and they did feel this would be appropriate. Corticosteroid injection #1 performed 01/28/2024. Coricosteriod injection #2 performed 02/11/24. Ulceration sites responded well to injection. Was instructed per dermatology to stop timolol drops and clobetasol topical as PG component has resolved. Dermatology has started Humira. Patient is currently on immunosuppressant agents for autoimmune disease, continues follow with Rheumatology. Discussed transition to supportive shoe gear to the right lower extremity as ulcerations are healed. Her gait is noted to be much improved versus prior to surgical intervention. At this time overall prognosis is good with healing of the sites but remains complicated due to surgical dehiscence/pyoderma gangrenosum. Will continue follow with Dermatology. Venous studies were performed 07/09/2023, no evidence of DVT. Valvular competence appears intact within the proximal deep venous system bilaterally. Great saphenous vein appears bilaterally patent and compressible segmentally. Saphenofemoral junctions are bilaterally competent. There is segmental valvular incompetence noted in the great saphenous veins bilaterally, small saphenous veins patent and competent on the right and patent and incompetent on the left. There are several incompetent accessory saphenous veins and tributaries in the right lower extremity and 2 accessory saphenous veins of the left calf are incompetent. LEAS were ordered 01/14/24 at recommendation of Dermatology. LEAS obtained on 02/09/2024 and demonstrate triphasic and biphasic Doppler waveforms at the right ankle and triphasic Doppler waveforms left ankle. PVR satisfactory at all levels bilaterally. Resting LAINE normal bilaterally. Digital brachial index normal bilateral. No evidence of arterial occlusive disease. Referral placed 04/07/24 with Vascular Surgery per request of Dermatology. Discussed signs and symptoms of infection. Discussed with her if she notices increasing redness about the ulcerative site that moves up the leg, purulent drainage from the ulcerative site, increasing foul odor from the ulcerative site, or if she develops fever greater than 101 degree, develops nausea, vomiting, chills, these are signs of a progressing infection and she should report to the ED for IV antibiotics. She voices understanding of this today. The following work up and care recommendations were made: Dressing: Clobetasol ointment and timolol drops, Adaptic, Dry sterile dressing. Change dressing daily Wash: Soap and water Tissue growth optimization: Clobetasol ointment and timolol drops Offload: To transition to full weightbearing to the right lower extremity in supportive shoe gear. foot. Patient was previously in CAM boot until surgical wound dehiscence. Transitioned back to surgical shoe to allow for decreased pressure at the wound site on the leg. With wounds healed she may return to shoe gear. Vascular: DP and PT pulses palpable with adequate capillary fill time to digits. Edema: Patient does have chronic venous insufficiency with bilateral lower extremity edema. With wound closed she will return to her prescription compression stockings. Infection: No signs of infection. Pain: May take [id number] Tylenol for discomfort Host factors: Chronic venous insufficiency, autoimmune disease, pyoderma gangrenosum I answered all the patient's questions. To return to the wound healing center in 2 weeks or call sooner if the patient has any questions or concerns. Will undergo MRI for further evaluation on June 29 2024. Will RTC for continued wound healing and postoperative care s/p primary repair of split tear of peroneal brevis tendon, primary repair of anterior tibiofibular ligament (AITFL), and syndesmotic repair via tight rope right lower extremity.
--- NOTE | 2024-06-27 11:46 | WC ---
PHOTO 06/09/24 RIGHT [facility] ANKLE
== END 2024-06-21 23:59 | disposition home or self-care (01) ==
LOC: WC 11:00
PROVIDERS: PCP Internal Medicine; Referring Provider Student in an Organized Health Care Education/Training Program; Visit Provider Student in an Organized Health Care Education/Training Program
DX: T81.31XA Disruption of external operation (surgical) wound, not elsewhere classified, initial encounter (principal); L97.212 Non-pressure chronic ulcer of right calf with fat layer exposed; L97.312 Non-pressure chronic ulcer of right 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; L88 Pyoderma gangrenosum; Y83.8 Other surgical procedures as the cause of abnormal reaction of the patient, or of later complication, without mention of misadventure at the time of the procedure; R60.0 Localized edema; M35.9 Systemic involvement of connective tissue, unspecified; M79.3 Panniculitis, unspecified; Z79.2 Long term (current) use of antibiotics; Z79.01 Long term (current) use of anticoagulants; Z79.899 Other long term (current) drug therapy
CPT/HCPCS: 99213; G0463

== ENCOUNTER 2024-07-14 08:15 | Outpatient (RCR) | payer MEDICARE, MEDICAID, SELFPAY ==
[2024-06-22 00:44] VITALS: BP 153/78; PULSE 98; RESP 18; TEMP 36.6
[2024-06-23 11:06] VITALS: RESP 18
--- NOTE | 2024-06-23 13:05 | PN.PCM_ITS ---
History of Present Illness Date of Service: 06/23/24 Chief Complaint: Surgical wound dehiscence right leg History of Wound: Patient is a 38-year-old female who subsequently developed a surgical wound dehiscence of her right lateral lower extremity. She previously underwent surgery for primary repair of split tear of the peroneus brevis tendon, primary repair of anterior tibiofibular ligament (AITFL), and syndesmotic reduction via tight rope of the right lower extremity on 04/24/2023. Following removal of sutures she developed surgical wound dehiscence secondary to continued lower extremity swelling via chronic venous insufficiency. She did undergo debridement in office 06/05/2023 and Deidre was applied at this time with Tubigrip compression. She has worn compression stockings to manage lower extremity swelling prior to surgical intervention. Patient is also noted to have autoimmune disease and is managed by rheumatology with medication and did resume all medications 2 weeks post operative per rheumatology. She was referred to the wound care center for continued wound healing. She has been applying Deidre and dry sterile dressings daily. She denies N/V/F/chills. Denies further complaints. Subjective Subjective Patient is a 39-year-old female who presents to the wound care center today for f/u of a right lateral leg surgical dehiscence and medial ankle ulceration s/p repair of split tear of peroneal brevis tendon, AITFL ligament repair, and syndesmotic repair of the right ankle. She reports she is continuing to walk in the surgical shoe without difficulty. Continues to follow with dermatology and following instructions for dressing changes daily. Has stopped applying clobetasol and timolol drops per dermatology. Medial ulceration remains open with some scant purulent drainage. Lateral site has reopened. She continues oral antibiotics as instructed. Awaiting MRI June 29. She denies constitutional symptoms today. Denies further complaints today. Objective Data Objective Data Vital Signs: Vital Signs Temp Pulse Resp BP O2 Del Method 97.8 F 98 18 153/78 H Room Air 06/22/24 00:44 06/22/24 00:44 06/23/24 11:06 06/22/24 00:44 06/23/24 11:06 Oxygen Delivery Method Room Air Physical Exam Const alert, oriented x3 and no apparent distress General Appearance: cooperative HEENT normocephalic Eyes General Eye: normal appearance of both eyes Neck General: normal visual inspection Lymph Lymphatic: no lymphadenopathy noted and no lymphedema noted Resp normal respiratory effort Cardio regular rate and regular rhythm Extremity Extremity Narrative: Right Lower Extremity: Vascular DP and PT pulses palpable bilateral. Capillary fill time less than 3 seconds to digits bilateral. Normal temperature gradient. There is hair growth present to lower extremity and digits. Dermatological: There is bilateral lower extremity edema secondary to chronic venous stasis with some hemosiderin deposition noted about the right lower extremity. The surgical dehiscence of the proximal incision on the right lower extremity with small area of granular tissue. Surrounding skin does have resolving rubor secondary to chronic venous stasis in addition to autoimmune disease and lipodermatosclerosis. No signs of infection. Distal aspect of the incision right lateral leg is a well-healed cicatrix. Anterior lateral leg demonstrates well-healed cicatrix. No signs of infection. Medial ankle wound secondary to autoimmune response/lipodermatosclerosis with rubor noted with some tenderness to palpation and scant purulence. On 08/28/2023 she demonstrated worsening of the medial and lateral ulcerative sites with deep purple violaceous border and hypertrophy of the wound bed and was started on oral steroid for possible pyoderma gangrenosum. She returned again on 09/03/2023 following oral steroid with noted improvement in tissue color surrounding the ulcerative sites and decreasing hypertrophy of the wound bed tissue. Pain also noted to be improving following oral steroid. Debridement was stopped at this time and treated as PG. Musculoskeletal: Muscle strength 5 of 5 age-appropriate. No pain to palpation about the lateral leg of the right lower extremity. No pain to palpation calf. 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 Any new allergies or adverse reactions No Had a fall/change in ADL's that may No increase risk of falls Signs or symptoms of abuse and/or No neglect since last visit Have you been in the hospital since your No last visit? Has dressing in place as prescribed Yes Has compression in place as prescribed Yes Has offloadiing in place as prescribed Yes Experienced any changes in pain level or No management Left Footwear Regular Shoe Right Footwear Surgical Shoe with pressure relief insole Pain Scale: 0-10 Numeric Is Patient Pain Free? Yes WC - Nurse 1 - General Ulcer Measurement Start: 06/23/24 11:05 Freq: Status: Active Protocol: Activity Type Activity Date Activity User E-sign Co-sign Detail Recorded Client Recorded Date Recorded By Document 06/23/24 11:06 [id number] 06/23/24 11:16 KW 06/23/24 11:06 Wound Center Nurse 1 #2 RT MED ANKLE -Current Size (cm) - Length 0.6 -Current Size (cm) - Width 0.7 -Current Size (cm) - Depth 0 -Total Square Cm 0.42 -Date of Last Picture (Recall this 06/23/24 field) -Exudate Amt Small -Exudate Type Serosanguineous -Granulation Amt Large (67-100%) -Granulation Quality Red -Texture (Meghan-wound Skin Appearance) Assessed -Moisture (Meghan-wound Skin Appearance) Assessed -Color (Meghan-wound Skin Appearance) Assessed, Erythema -Temperature (Meghan-wound Skin No Abnormality Appearance) (Pt Warm) -Tenderness on Palpation (Meghan-wound No Skin Appearance) -Ulcer Cleansing Rinsed/ Irrigated with Saline #1 RT LAT ANKLE CLUSTER -Current Size (cm) - Length 2.1 -Current Size (cm) - Width 0.6 -Current Size (cm) - Depth 0.1 -Total Square Cm 1.26 -Date of Last Picture (Recall this 06/23/24 field) -Exudate Amt Small -Exudate Type Serosanguineous -Wound Margin Distinct, Outline Attached -Granulation Amt Large (67-100%) -Granulation Quality Red -Texture (Meghan-wound Skin Appearance) Assessed -Moisture (Meghan-wound Skin Appearance) Assessed -Color (Meghan-wound Skin Appearance) Assessed, Erythema -Temperature (Meghan-wound Skin No Abnormality Appearance) (Pt Warm) -Tenderness on Palpation (Meghan-wound No Skin Appearance) -Ulcer Cleansing Rinsed/ Irrigated with Saline -Foul Odor after Cleansing No WC - Nurse 2 - General Ulcer CM Notes Start: 06/23/24 11:05 Freq: Status: Active Protocol: Activity Type Activity Date Activity User E-sign Co-sign Detail Recorded Client Recorded Date Recorded By Document 06/23/24 11:52 [facility] [id number] 06/23/24 11:58 [facility] 06/23/24 11:52 Wound Center Nurse 2 #2 RT MED ANKLE -Time 11:52 -Post Debridement (cm) - Length 0.5 -Post Debridement (cm) - Width 0.6 -Post Debridement (cm) - Depth 0.1 -Total Square (Post) (cm) 0.30 -Area of Debridement (cm) - Length 0.5 -Area of Debridement (cm) - Width 0.6 -Total Square (Area) (cm) 0.30 -Wound/Ulcer Outcome Not Healed -Bleeding Controlled with NA #1 RT LAT ANKLE CLUSTER -Time 11:53 -Post Debridement (cm) - Length 2 -Post Debridement (cm) - Width 0.5 -Post Debridement (cm) - Depth 0.1 -Total Square (Post) (cm) 1.0 -Area of Debridement (cm) - Length 2 -Area of Debridement (cm) - Width 0.5 -Total Square (Area) (cm) 1.0 -Tunneling No -Undermining/Tunneling No -Circular Undermining No -Wound/Ulcer Outcome Not Healed -Bleeding Controlled with NA Pain Scale: 0-10 Numeric Is Patient Pain Free? Yes WC - Nurse 3 - General Ulcer D/C NN Start: 06/23/24 11:05 Freq: Status: Active Protocol: Activity Type Activity Date Activity User E-sign Co-sign Detail Recorded Client Recorded Date Recorded By Document 06/23/24 12:07 KW [id number] 06/23/24 12:08 KW 06/23/24 12:07 Wound Care Center Nurse 3 #2 RT MED ANKLE -Primary Dressing Applied NonAdherent Contact Layer -Other Dressing dakins wash -Primary Dressing Covered/Secured with Dry Gauze #1 RT LAT ANKLE CLUSTER -Other Dressing dakins wash then adaptic -Primary Dressing Covered/Secured with Dry Gauze & Roll Gauze, Secured with Tape Right -Tubular Bandage Single Layer -Size of Tubigrip Used Size E -Size E ($) 1 Pain Scale: 0-10 Numeric Is Patient Pain Free? 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 (4) Pyoderma gangrenosum: CODE(S): L88 - Pyoderma gangrenosum (5) Surgical wound dehiscence: CODE(S): T81.31XA - Disruption of external operation (surgical) wound, not elsewhere classified, initial encounter QUALIFIERS: Encounter type: subsequent encounter Qualified Code(s): T81.31XD - Disruption of external operation (surgical) wound, not elsewhere classified, subsequent encounter (6) Venous insufficiency (chronic) (peripheral): CODE(S): I87.2 - Venous insufficiency (chronic) (peripheral) PLAN: Plan Patient seen and evaluated She presents today for continued wound care and check s/p primary repair of split tear of peroneal brevis tendon, primary repair of anterior tibiofibular ligament (AITFL), and syndesmotic reduction via tight rope DOS 04/24/2023 Currently over 1 year out of surgery. Denies pain to ankle but crucible furnace tender about ulceration sites, she is continuing weight bearing to the Right foot in surgical shoe. She reports incision did begin to open up on 06/02/2023. Dehiscence occurred 2 weeks following the removal of her sutures and after ambulation in CAM boot. States no pain along peroneal tendon or to eversion of the foot or at anterior lateral ankle overlying the ATIFL. Does have tenderness to the medial and lateral ankle ulceration secondary pyoderma gangrenosum. 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 She does have some occasional discomfort with the pyoderma. She has remained protective weightbearing to the right lower extremity with surgical shoe. Discussed transition to supportive shoe gear as her ulcerations have healed. Dressings were removed today and site was inspected. Anterior lateral ankle demonstrates well-healed cicatrix. Lateral ankle demonstrates well-healed cicatrix distally and most proximally. Ulceration did not undergo debridement. Ulceration lateral leg re-opened at central portion just proximal to lateral malleolus measuring 2.0 cm x 0.5 cm with scant purulent drainage. Medial ankle ulceration reopened measuring 0.5cm x 0.6cm with scant purulent drainage. Currently on oral Doxycycline for positive MSSA culture. Has been treated for PG with good healing noted however ulcerations have re- opened and are likely complicated by venous pressure vs possible infection. MRI has been ordered for further evaluation, awaiting study on June 29, 2024. Discussed with her if the previous hardware did have infection she would need to return for I&D with removal of the hardware component. She is understanding of this. She underwent biopsy of medial site on 12/29/23. Her pyoderma gangrenosum had responded well to the topical tacrolimus, but I felt she would benefit from dermatology referral, which was made. She has stopped applying timolol drops daily and stopped clobetasol topical per Dermatology. Compression via compression stocking. She was also encouraged to elevate lower extremity at all times of rest for edema control. Referral to dermatology on 12/10/23 for additional treatments. She had first appointment with dermatology on 12/29/2023. She reports a biopsy was performed. I have discussed biposy and treatment personally with Dr. Moralez. Dermatology wanted her to stop applying topical tacrolimus and apply timolol drops with 2 drops per wound twice a day and continue with compression stockings as they feel PG has settled down as of May 2024. Prior to stopping topical medications, discussed corticosteroid injection with dermatology and they did feel this would be appropriate. Corticosteroid injection #1 performed 01/28/2024. Coricosteriod injection #2 performed 02/11/24. Ulceration sites responded well to injection. Was instructed per dermatology to stop timolol drops and clobetasol topical as PG component has resolved. Dermatology has started Humira. Patient is currently on immunosuppressant agents for autoimmune disease, continues follow with Rheumatology. Discussed transition to supportive shoe gear to the right lower extremity as ulcerations are healed. Her gait is noted to be much improved versus prior to surgical intervention. At this time overall prognosis is good with healing of the sites but remains complicated due to surgical dehiscence/pyoderma gangrenosum. Will continue follow with Dermatology. Venous studies were performed 07/09/2023, no evidence of DVT. Valvular competence appears intact within the proximal deep venous system bilaterally. Great saphenous vein appears bilaterally patent and compressible segmentally. Saphenofemoral junctions are bilaterally competent. There is segmental valvular incompetence noted in the great saphenous veins bilaterally, small saphenous veins patent and competent on the right and patent and incompetent on the left. There are several incompetent accessory saphenous veins and tributaries in the right lower extremity and 2 accessory saphenous veins of the left calf are incompetent. LEAS were ordered 01/14/24 at recommendation of Dermatology. LEAS obtained on 02/09/2024 and demonstrate triphasic and biphasic Doppler waveforms at the right ankle and triphasic Doppler waveforms left ankle. PVR satisfactory at all levels bilaterally. Resting LAINE normal bilaterally. Digital brachial index normal bilateral. No evidence of arterial occlusive disease. Referral placed 04/07/24 with Vascular Surgery per request of Dermatology. Discussed signs and symptoms of infection. Discussed with her if she notices increasing redness about the ulcerative site that moves up the leg, purulent drainage from the ulcerative site, increasing foul odor from the ulcerative site, or if she develops fever greater than 101 degree, develops nausea, vomiting, chills, these are signs of a progressing infection and she should report to the ED for IV antibiotics. She voices understanding of this today. The following work up and care recommendations were made: Dressing: Dakins wash daily, Adaptic, Dry sterile dressing. Change dressing daily Wash: Soap and water Tissue growth optimization: None Offload: To transition to full weightbearing to the right lower extremity in supportive shoe gear. foot. Patient was previously in CAM boot until surgical wound dehiscence. Transitioned back to surgical shoe to allow for decreased pressure at the wound site on the leg. With wounds healed she may return to shoe gear. Vascular: DP and PT pulses palpable with adequate capillary fill time to digits. Edema: Patient does have chronic venous insufficiency with bilateral lower extremity edema. With wound closed she will return to her prescription compression stockings. Infection: No signs of infection. Pain: May take [id number] Tylenol for discomfort Host factors: Chronic venous insufficiency, autoimmune disease, pyoderma gangrenosum I answered all the patient's questions. To return to the wound healing center in 2 weeks or call sooner if the patient has any questions or concerns. Will undergo MRI for further evaluation on June 29 2024. Will RTC for continued wound healing and postoperative care s/p primary repair of split tear of peroneal brevis tendon, primary repair of anterior tibiofibular ligament (AITFL), and syndesmotic repair via tight rope right lower extremity.
--- NOTE | 2024-06-27 12:01 | WC ---
PHOTO 06/23/24 RIGHT [facility] ANKLE
--- NOTE | 2024-06-27 12:02 | WC ---
PHOTO 06/23/24 RIGHT LATERAL ANKLE
[2024-07-14 09:58] VITALS: BP 133/84; PULSE 80; RESP 18; TEMP 36.6
--- NOTE | 2024-07-14 13:26 | PCM.WC.PN ---
History of Present Illness Date of Service: 07/14/24 Chief Complaint: Surgical wound dehiscence right leg History of Wound: Patient is a 38-year-old female who subsequently developed a surgical wound dehiscence of her right lateral lower extremity. She previously underwent surgery for primary repair of split tear of the peroneus brevis tendon, primary repair of anterior tibiofibular ligament (AITFL), and syndesmotic reduction via tight rope of the right lower extremity on 04/24/2023. Following removal of sutures she developed surgical wound dehiscence secondary to continued lower extremity swelling via chronic venous insufficiency. She did undergo debridement in office 06/05/2023 and Deidre was applied at this time with Tubigrip compression. She has worn compression stockings to manage lower extremity swelling prior to surgical intervention. Patient is also noted to have autoimmune disease and is managed by rheumatology with medication and did resume all medications 2 weeks post operative per rheumatology. She was referred to the wound care center for continued wound healing. She has been applying Deidre and dry sterile dressings daily. She denies N/V/F/chills. Denies further complaints. Subjective Subjective Patient is a 39-year-old female who presents to the wound care center today for f/u of a right lateral leg surgical dehiscence and medial ankle ulceration s/p repair of split tear of peroneal brevis tendon, AITFL ligament repair, and syndesmotic repair of the right ankle. She reports she is continuing to walk in the surgical shoe without difficulty. Continues to follow with dermatology and following instructions for dressing changes daily. Has stopped applying clobetasol and timolol drops per dermatology. Medial ulceration remains open with some scant purulent drainage. Lateral site has reopened. She continues oral antibiotics as instructed. Underwent MRI this morning due to prior MRI cancelled by insurance. She denies constitutional symptoms today. Denies further complaints today. Objective Data Objective Data Vital Signs: Vital Signs Temp Pulse Resp BP O2 Del Method 97.8 F 80 18 133/84 H Room Air 07/14/24 09:58 07/14/24 09:58 07/14/24 09:58 07/14/24 09:58 06/23/24 11:06 Oxygen Delivery Method Room Air Physical Exam Const alert, oriented x3 and no apparent distress General Appearance: cooperative HEENT normocephalic Eyes General Eye: normal appearance of both eyes Neck General: normal visual inspection Lymph Lymphatic: no lymphadenopathy noted and no lymphedema noted Resp normal respiratory effort Cardio regular rate and regular rhythm Extremity Extremity Narrative: Right Lower Extremity: Vascular DP and PT pulses palpable bilateral. Capillary fill time less than 3 seconds to digits bilateral. Normal temperature gradient. There is hair growth present to lower extremity and digits. Dermatological: There is bilateral lower extremity edema secondary to chronic venous stasis with some hemosiderin deposition noted about the right lower extremity. The surgical dehiscence of the proximal incision on the right lower extremity with small area of granular tissue. Surrounding skin does have resolving rubor secondary to chronic venous stasis in addition to autoimmune disease and lipodermatosclerosis. No signs of infection. Distal aspect of the incision right lateral leg is a well-healed cicatrix. Anterior lateral leg demonstrates well-healed cicatrix. No signs of infection. Medial ankle wound secondary to autoimmune response/lipodermatosclerosis with rubor noted with some tenderness to palpation and scant purulence. On 08/28/2023 she demonstrated worsening of the medial and lateral ulcerative sites with deep purple violaceous border and hypertrophy of the wound bed and was started on oral steroid for possible pyoderma gangrenosum. She returned again on 09/03/2023 following oral steroid with noted improvement in tissue color surrounding the ulcerative sites and decreasing hypertrophy of the wound bed tissue. Pain also noted to be improving following oral steroid. Debridement was stopped at this time and treated as PG. Musculoskeletal: Muscle strength 5 of 5 age-appropriate. No pain to palpation about the lateral leg of the right lower extremity. No pain to palpation calf. Debridement Note Debridement Note No debridement was completed: No debridement was completed today Post-Debridement Measurements and Additional Note: Post-Debridement Measurements/Treatment - Nurse 1 - General Ulcer Assessment Start: 06/23/24 11:05 Freq: Status: Active Protocol: NEELA.[email or web address] Activity Type Activity Date Activity User E-sign Co-sign Detail Recorded Client Recorded Date Recorded By Document 06/23/24 11:06 KW [id number] 06/23/24 11:16 KW Document 07/14/24 09:58 RB [id number] 07/14/24 10:02 RB 06/23/24 07/14/24 11:06 09:58 - Today's Visit Information Type of service Follow-up Visit Follow-up Visit (Physician/BROOMCORN THRESHER (Physician/BROOMCORN THRESHER ) ) Arrival Mode Ambulatory, Ambulatory, Other Other Arrival Mode (Other) walks alongside knee roll Transfer Assistance Manual Patient Identification Verified (Name & Yes Yes ) Patient Requires Transmission-Based No Precautions Vital Signs Temperature (97.8 F-99.1 F) 97.8 F Temperature Source Temporal Temporal Pulse Rate (60-100) 80 Pulse Location Monitor Monitor Respiratory Rate (12-18) 18 18 Respiratory rate source Observation Observation Oxygen Delivery Method Room Air Blood Pressure (90/60-120/80) 133/84 H Blood Pressure Mean (mm Hg) 100 Source Monitor Monitor Position Semi-Fowlers Semi-Fowlers Blood Pressure Location Right Arm Left Arm History Since Last Visit- (Skip if this is Patient's initial visit) Have you changed medications since your No No last visit? Any new allergies or adverse reactions No No Had a fall/change in ADL's that may No No increase risk of falls Signs or symptoms of abuse and/or No No neglect since last visit Have you been in the hospital since your No No last visit? Has dressing in place as prescribed Yes Yes Has compression in place as prescribed Yes Yes Has offloadiing in place as prescribed Yes Yes Experienced any changes in pain level or No No management Left Footwear Regular Shoe Regular Shoe Right Footwear Surgical Shoe Surgical Shoe with pressure with pressure relief insole relief insole Pain Scale: 0-10 Numeric Is Patient Pain Free? Yes No RLE -Description Sharp,Dull, Burning -Intensity 5 -Duration (hours) Acute -Pain Behavior Withdrawal from Touch -Pain Aggravating Factors Changing Position -Alleviating Factors/Interventions Medication -Effectiveness of Alleviating Factor/ Moderately Intervention effective WC - Nurse 1 - General Ulcer Measurement Start: 06/23/24 11:05 Freq: Status: Active Protocol: Activity Type Activity Date Activity User E-sign Co-sign Detail Recorded Client Recorded Date Recorded By Document 06/23/24 11:06 KW [id number] 06/23/24 11:16 KW Document 07/14/24 09:58 RB [id number] 07/14/24 10:02 RB 06/23/24 07/14/24 11:06 09:58 Wound Center Nurse 1 #2 RT MED ANKLE -Combined with other wound No -Current Size (cm) - Length 0.6 0.5 -Current Size (cm) - Width 0.7 0.2 -Current Size (cm) - Depth 0 0.1 -Total Square Cm 0.42 0.10 -Date of Last Picture (Recall this 06/23/24 field) -Photo Taken Yes -Tunneling No -Undermining/Tunneling No -Circular Undermining No -Exudate Amt Small Medium -Exudate Type Serosanguineous Serosanguineous -Wound Margin Thickened & Rolled Under -Granulation Amt Large (67-100%) Medium (34-66%) -Granulation Quality Red Hyper- granulation, [place],Red -Slough/Fibrin Yes -Necrosis Amt Medium (34-66%) -Necrotic Tissue Type Adherent Slough -Structure Exposed N/A -Texture (Meghan-wound Skin Appearance) Assessed Assessed, Scarring -Moisture (Meghan-wound Skin Appearance) Assessed Assessed -Color (Meghan-wound Skin Appearance) Assessed, Assessed, Erythema Hemosiderin Staining -Temperature (Meghan-wound Skin No Abnormality No Abnormality Appearance) (Pt Warm) (Pt Warm) -Tenderness on Palpation (Meghan-wound No No Skin Appearance) -Ulcer Cleansing Rinsed/ Wound Cleanser Irrigated with Saline -Foul Odor after Cleansing No -Anesthetic Used 5% Lidocaine Gel #1 RT LAT ANKLE CLUSTER -Combined with other wound No -Current Size (cm) - Length 2.1 2.2 -Current Size (cm) - Width 0.6 0.5 -Current Size (cm) - Depth 0.1 0.1 -Total Square Cm 1.26 1.10 -Date of Last Picture (Recall this 06/23/24 field) -Photo Taken Yes -Tunneling No -Undermining/Tunneling No -Circular Undermining No -Exudate Amt Small Medium -Exudate Type Serosanguineous Serosanguineous -Wound Margin Distinct, Distinct, Outline Outline Attached Attached -Granulation Amt Large (67-100%) Medium (34-66%) -Granulation Quality Red Hyper- granulation, [place],Red -Slough/Fibrin Yes -Necrosis Amt Medium (34-66%) -Necrotic Tissue Type Adherent Slough -Structure Exposed N/A -Texture (Meghan-wound Skin Appearance) Assessed Assessed, Scarring -Moisture (Meghan-wound Skin Appearance) Assessed Assessed -Color (Meghan-wound Skin Appearance) Assessed, Assessed Erythema -Temperature (Meghan-wound Skin No Abnormality No Abnormality Appearance) (Pt Warm) (Pt Warm) -Tenderness on Palpation (Meghan-wound No No Skin Appearance) -Ulcer Cleansing Rinsed/ Wound Cleanser Irrigated with Saline -Foul Odor after Cleansing No No -Anesthetic Used 5% Lidocaine Gel Lower Limb Edema Present Yes Left Calf (cm) 44 Left Ankle (cm) 27.4 WC - Nurse 2 - General Ulcer CM Notes Start: 06/23/24 11:05 Freq: Status: Active Protocol: Activity Type Activity Date Activity User E-sign Co-sign Detail Recorded Client Recorded Date Recorded By Document 06/23/24 11:52 [facility] [id number] 06/23/24 11:58 [facility] Document 07/14/24 10:20 [facility] [id number] 07/14/24 10:28 [facility] 06/23/24 07/14/24 11:52 10:20 Wound Center Nurse 2 #2 RT MED ANKLE -Time 11:52 10:20 -Post Debridement (cm) - Length 0.5 1 -Post Debridement (cm) - Width 0.6 0.7 -Post Debridement (cm) - Depth 0.1 0.1 -Total Square (Post) (cm) 0.30 0.7 -Area of Debridement (cm) - Length 0.5 1 -Area of Debridement (cm) - Width 0.6 0.7 -Total Square (Area) (cm) 0.30 0.7 -Wound/Ulcer Outcome Not Healed Not Healed -Bleeding Controlled with NA NA -Wound Comment(s) PYODERMA #1 RT LAT ANKLE CLUSTER -Time 11:53 10:20 -Post Debridement (cm) - Length 2 2.1 -Post Debridement (cm) - Width 0.5 0.7 -Post Debridement (cm) - Depth 0.1 0.1 -Total Square (Post) (cm) 1.0 1.47 -Area of Debridement (cm) - Length 2 2.1 -Area of Debridement (cm) - Width 0.5 0.7 -Total Square (Area) (cm) 1.0 1.47 -Tunneling No -Undermining/Tunneling No -Circular Undermining No -Wound/Ulcer Outcome Not Healed Not Healed -Bleeding Controlled with NA NA -Wound Comment(s) PYODERMA Pain Scale: 0-10 Numeric Is Patient Pain Free? Yes Yes WC - Nurse 3 - General Ulcer D/C NN Start: 06/23/24 11:05 Freq: Status: Active Protocol: Activity Type Activity Date Activity User E-sign Co-sign Detail Recorded Client Recorded Date Recorded By Document 06/23/24 12:07 KW [id number] 06/23/24 12:08 KW Document 07/14/24 10:47 RB [id number] 07/14/24 10:48 RB 06/23/24 07/14/24 12:07 10:47 Wound Care Center Nurse 3 #2 RT MED ANKLE -Ulcer Cleansing WASHED WITH DAKINS -Primary Dressing Applied NonAdherent Contact Layer -Primary Dressing Applied NonAdherent Contact Layer -Other Dressing dakins wash -Primary Dressing Covered/Secured with Dry Gauze Dry Gauze,Dry Gauze & Roll Gauze,Secured with Tape #1 RT LAT ANKLE CLUSTER -Ulcer Cleansing DAKINS -Primary Dressing Applied NonAdherent Contact Layer -Other Dressing dakins wash then adaptic -Primary Dressing Covered/Secured with Dry Gauze & Dry Gauze,Dry Roll Gauze, Gauze & Roll Secured with Gauze,Secured Tape with Tape Right -Tubular Bandage Single Layer Single Layer -Size of Tubigrip Used Size E Size E -Size E ($) 1 1 Treatment Response Procedure Tolerated Well Pain Scale: 0-10 Numeric Is Patient Pain Free? Yes Yes Teaching: Wound Center Dressing Your Wound -Person Taught Patient -Teaching Method Discussion, Demonstration -Response to teaching Verbalize Understanding WC - Visit Discharge Discharge Condition Stable Stable Ambulatory Status Ambulatory Ambulatory Transportation Private Auto Medication Reconcilliation completed & No No provided to patient/care provider Clinical Summary of Care Provided Yes Yes Assessment/Plan Assessment/Plan (1) Lipodermatosclerosis of right lower extremity: CODE(S): M79.3 - Panniculitis, unspecified (2) Non-pressure chronic ulcer of right calf with fat layer exposed: CODE(S): L97.212 - Non-pressure chronic ulcer of right calf with fat layer exposed (3) Non-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: CODE(S): L97.312 - Non-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 (4) Pyoderma gangrenosum: CODE(S): L88 - Pyoderma gangrenosum (5) Surgical wound dehiscence: CODE(S): T81.31XA - Disruption of external operation (surgical) wound, not elsewhere classified, initial encounter QUALIFIERS: Encounter type: subsequent encounter Qualified Code(s): T81.31XD - Disruption of external operation (surgical) wound, not elsewhere classified, subsequent encounter (6) Venous insufficiency (chronic) (peripheral): CODE(S): I87.2 - Venous insufficiency (chronic) (peripheral) PLAN: Plan Patient seen and evaluated She presents today for continued wound care and check s/p primary repair of split tear of peroneal brevis tendon, primary repair of anterior tibiofibular ligament (AITFL), and syndesmotic reduction via tight rope DOS 04/24/2023 Currently over 1 year out of surgery. Denies pain to ankle but distillery miller about ulceration sites, she is continuing weight bearing to the Right foot in surgical shoe. She reports incision did begin to open up on 06/02/2023. Dehiscence occurred 2 weeks following the removal of her sutures and after ambulation in CAM boot. States no pain along peroneal tendon or to eversion of the foot or at anterior lateral ankle overlying the ATIFL. Does have tenderness to the medial and lateral ankle ulceration secondary pyoderma gangrenosum. 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 She does have some occasional discomfort with the pyoderma ulcerations. She has remained protective weightbearing to the right lower extremity with surgical shoe. Discussed transition to supportive shoe gear as her ulcerations have healed. Dressings were removed today and site was inspected. Anterior lateral ankle demonstrates well-healed cicatrix. Lateral ankle demonstrates well-healed cicatrix distally and most proximally. Ulceration did not undergo debridement. Ulceration lateral leg re-opened at central portion just proximal to lateral malleolus measuring 2.1 cm x 0.7 cm with scant purulent drainage. Medial ankle ulceration reopened measuring 1.0cm x 0.7cm with scant purulent drainage. Currently on oral Doxycycline for positive MSSA culture. Has been treated for PG with good healing noted however ulcerations have re-opened and are likely complicated by venous pressure vs possible infection. MRI has been ordered for further evaluation, awaiting study on June 29, 2024. Discussed with her if the previous hardware did have infection she would need to return for I&D with removal of the hardware component. She is understanding of this. She underwent biopsy of medial site on 12/29/23. Her pyoderma gangrenosum had responded well to the topical tacrolimus, but I felt she would benefit from dermatology referral, which was made. She has stopped applying timolol drops daily and stopped clobetasol topical per Dermatology. Compression via compression stocking. She was also encouraged to elevate lower extremity at all times of rest for edema control. Referral to dermatology on 12/10/23 for additional treatments. She had first appointment with dermatology on 12/29/2023. She reports a biopsy was performed. I have discussed biposy and treatment personally with Dr. Moralez. Dermatology wanted her to stop applying topical tacrolimus and apply timolol drops with 2 drops per wound twice a day and continue with compression stockings as they feel PG has settled down as of May 2024. Prior to stopping topical medications, discussed corticosteroid injection with dermatology and they did feel this would be appropriate. Corticosteroid injection #1 performed 01/28/2024. Coricosteriod injection #2 performed 02/11/24. Ulceration sites responded well to injection. Was instructed per dermatology to stop timolol drops and clobetasol topical as PG component has resolved. Dermatology has started Humira. Patient is currently on immunosuppressant agents for autoimmune disease, continues follow with Rheumatology. Discussed transition to supportive shoe gear to the right lower extremity as ulcerations are healed. Her gait is noted to be much improved versus prior to surgical intervention. At this time overall prognosis is good with healing of the sites but remains complicated due to surgical dehiscence/pyoderma gangrenosum. Will continue follow with Dermatology. Venous studies were performed 07/09/2023, no evidence of DVT. Valvular competence appears intact within the proximal deep venous system bilaterally. Great saphenous vein appears bilaterally patent and compressible segmentally. Saphenofemoral junctions are bilaterally competent. There is segmental valvular incompetence noted in the great saphenous veins bilaterally, small saphenous veins patent and competent on the right and patent and incompetent on the left. There are several incompetent accessory saphenous veins and tributaries in the right lower extremity and 2 accessory saphenous veins of the left calf are incompetent. LEAS were ordered 01/14/24 at recommendation of Dermatology. LEAS obtained on 02/09/2024 and demonstrate triphasic and biphasic Doppler waveforms at the right ankle and triphasic Doppler waveforms left ankle. PVR satisfactory at all levels bilaterally. Resting LAINE normal bilaterally. Digital brachial index normal bilateral. No evidence of arterial occlusive disease. Referral placed 04/07/24 with Vascular Surgery per request of Dermatology. MRI performed 07/14/24: Interpretation was intact distal tibiofibular syndesmosis hardware. Ulceration along lateral aspect of ankle. Mild subcutaneous soft tissue edema around the ankle extending along the dorsum of the foot. No discrete fluid collection or drainable abscess. No abnormal contrast enhancement. Results were discussed with her in detail today. Discussed plan for procedure moving forward. Surgical discussion was had today 07/14/24 in regards to performing I&D of superficial abscess/debridement of ulceration with possible hardware removal of the right leg to likely occur on 07/19/2024. Discussed procedure in detail. Discussed typical postoperative course. Discussed risks and complications of the procedure. Discussed risks include but are not limited to the following: Pain, continued pain, complex regional pain syndrome, infection, dehiscence, delayed wound healing/nonhealing, scarring/poor cosmetic result, edema, need for further surgical procedure/intervention, neuritis/numbness, difficulty wearing shoe gear, inability to wear shoe gear, addiction to pain medication, stroke, heart attack, bleeding, allergic reaction, blood clot, loss of function, loss of limb, loss of life. Patient voices understanding of these and was able to repeat these back. Consent for procedure was signed and obtained at patient's free will. Patient wishes to move forward with the intervention. No promises were made. No guarantees were given. Discussed signs and symptoms of infection. Discussed with her if she notices increasing redness about the ulcerative site that moves up the leg, purulent drainage from the ulcerative site, increasing foul odor from the ulcerative site, or if she develops fever greater than 101 degree, develops nausea, vomiting, chills, these are signs of a progressing infection and she should report to the ED for IV antibiotics. She voices understanding of this today. The following work up and care recommendations were made: Dressing: Dakins wash daily, Adaptic, Dry sterile dressing. Change dressing daily Wash: Soap and water Tissue growth optimization: None Offload: To transition to full weightbearing to the right lower extremity in supportive shoe gear. foot. Patient was previously in CAM boot until surgical wound dehiscence. Transitioned back to surgical shoe to allow for decreased pressure at the wound site on the leg. With wounds healed she may return to shoe gear. Vascular: DP and PT pulses palpable with adequate capillary fill time to digits. Edema: Patient does have chronic venous insufficiency with bilateral lower extremity edema. With wound closed she will return to her prescription compression stockings. Infection: No signs of infection. Pain: May take [id number] Tylenol for discomfort Host factors: Chronic venous insufficiency, autoimmune disease, pyoderma gangrenosum I answered all the patient's questions. To return to the wound healing center in 2 weeks or call sooner if the patient has any questions or concerns. Will at this time plan for I&D of superficial abscess/debridement of ulceration with possible hardware removal of the Right leg following venous ablation with Dr. Salinas on 07/19/2024. Will RTC for continued wound healing and postoperative care s/p primary repair of split tear of peroneal brevis tendon, primary repair of anterior tibiofibular ligament (AITFL), and syndesmotic repair via tight rope right lower extremity.
--- NOTE | 2024-07-15 14:31 | WC ---
PHOTO 07/14/24 RIGHT LATERAL ANKLE
--- NOTE | 2024-07-15 14:32 | WC ---
PHOTO 07/14/24 RIGHT MEDIAL ANKLE
--- NOTE | 2024-07-19 10:11 | DCINST_ITS ---
Discharge Instructions Diet Discharge Diet: No restrictions DC O2, CPAP, BIPAP needs Home O2 Discharge instructions: No Dressing / Incision Discharge Activity: May Not Drive and May Shower (Please utilize cast bag covering to keep dressings clean, dry, and intact to the right leg) Weight Bearing Status: No weight bearing (Please remain nonweightbearing to the right lower extremity and utilize knee scooter to remain compliant weightbearing status) Keep extremity elevated above heart level: Right Leg (Elevate right leg at all times of rest for postoperative edema control) Dressing / Incision Call your doctor if you observe: Fever of 101 or Higher, Shortness of breath, Chest pain, Calf discomfort and Uncontrolled pain Change Dressing in: do not change dressing (Do not change dressing around the ankle. Per vascular she may change upper leg dressing in 48 hours) Remove Dressing in: leave in place till F/U (Physician will change dressing around the ankle at first postoperative visit) Cleanse incision/area with: Do not get Incision Wet and Keep Dressing Clean & Dry (Do not get site wet. Please utilize cast bag when showering to keep dressings clean, dry, and intact to the right leg) Follow Up Care Please Follow Up With: Rick Cummins DPM When: Patient has first postoperative appointment at the wound care center next week Test Results: Test results from this visit will be discussed in further detail at your follow- up appointment, if applicable. Discharge Plan Admission Attending Provider: Rick Cummins Primary Care Provider: Almaz Rosas Consulting Providers: Lambert Moralez Discharge Orders/Prescriptions Prescriptions: No Action Humira(CF) Pen 80 mg/0.8 mL pen injector kit 80 mg subcut CHOW Rx Instructions: inject two - 80 mg/0.8 mL pens on Day 1; inject one - 80 mg/0.8 mL pen on Day 15 of therapy subcut pantoprazole 40 MG tablet 40 mg PO BID Zyrtec 10 MG capsule 10 mg PO DAILY Veramist 2 spray NASAL DAILY gabapentin 600 mg tablet 600 mg PO TID Patient Comments: TAKE 1 TABLET BY MOUTH THREE TIMES DAILY FOR RESTLESS LEG SYNDROM sucralfate 1 gram tablet 2 g PO QHS Patient Comments: TAKE 1 TABLET BY MOUTH BEFORE MEALS AND AT BEDTIME. ferrous sulfate 325 mg (65 mg iron) tablet 325 mg PO QODAY Patient Comments: TAKE 1 TABLET BY MOUTH EVERY OTHER DAY escitalopram oxalate 20 mg tablet 20 mg PO DAILY Patient Comments: TAKE 1 TABLET BY MOUTH EVERY DAY buprenorphine HCl [Belbuca] 300 mcg film 300 mcg BUCCAL BID Patient Comments: DISSOLVE ON TONGUE 2 TIMES A DAY FOR 28 DAYS Xywav 0.5 gram/mL Solution 4.25 g PO 0030 albuterol sulfate [Ventolin HFA] 90 mcg/actuation HFA aerosol inhaler 2 puff inhalation Q4H PRN PRN (Reason: Wheezing) Qty: 1 0RF Xywav 0.5 gram/mL solution 4 g PO 0300 Rx Instructions: administer the first dose at bedtime and the second dose 2.5-4 hours later colestipol 1 gram tablet 2 g PO QHS Patient Comments: take 1 tablet by mouth twice a day mycophenolate mofetil 500 mg tablet 1,500 mg PO BID Patient Comments: take 3 tablets by mouth twice a day modafinil 200 mg tablet 200 mg PO DAILY Patient Comments: take 1 tablet by mouth every morning cholecalciferol (vitamin D3) 25 mcg (1,000 unit) capsule 1,000 unit PO DAILY Patient Comments: take 1 capsule by mouth once daily famotidine 40 mg tablet 40 mg PO DAILY Patient Comments: take 1 tablet by mouth once daily epinephrine 0.3 mg/0.3 mL auto-injector 0.3 ml IM UD PRN (Reason: allergies) ondansetron 4 mg tablet,disintegrating 4 mg PO Q8H PRN (Reason: nausea and vomiting) ergocalciferol (vitamin D2) [Vitamin D2] 1,250 mcg (50,000 unit) capsule 1,250 mcg PO QWEEK Referrals / Follow Up: Almaz Rosas MD [Primary Care Provider] - Disposition Disposition (needs filled in before D/C Order can be placed): Home, Self Care
--- NOTE | 2024-07-19 10:16 | OP.PCM_ITS ---
Problems Associated Problem List Diagnoses (1) Infected hardware in right lower extremity: (2) Non-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: (3) Non-pressure chronic ulcer of right calf with fat layer exposed: (4) Osteomyelitis of right ankle: (5) Lipodermatosclerosis of right lower extremity: (6) Venous insufficiency (chronic) (peripheral): Operative Report (Standard) Operative Information Date of Procedure: 07/19/24 Pre-Operative Diagnosis: 1. Infected hardware right ankle 2. Nonhealing ulceration right lateral leg 3. Nonhealing ulceration right medial ankle 4. Osteomyelitis right ankle 5. Chronic venous insufficiency right lower extremity Post-Operative Diagnosis: 1. Infected hardware right ankle 2. Nonhealing ulceration right lateral leg 3. Nonhealing ulceration right medial ankle 4. Osteomyelitis right ankle 5. Chronic venous insufficiency right lower extremity Surgery/Procedure Performed: 1. Removal of infected hardware right ankle 2. Incision and drainage and debridement of necrotic tissue right ankle 3. Bone biopsy fibula and tibia right ankle automatic buffer: Yes Mortgage Branch Manager: Dr. Chuy Meade, DPM PGY-2 Tasks completed by vector control assistant: Closing, Dissecting tissue and Retracting Type of Anesthesia: General RN Documented Start/Stop Times: Start - 8:22 Stop - 9:55 Tourniquet up: 8:21 to 250mmHg Tourniquet down: 8:27 Tourniquet up: 8:30 to 250mmHg Tourniquet down 9:47 Procedure Start Time: 08:22 Procedure Stop Time: 09:55 Select all DRAINS/GRAFTS/IMPLANTS that apply: None Estimated Blood Loss: < 15mL Specimen collected: Yes Description of specimen(s) removed: Swab culture right ankle Infected hardware right ankle Bone biopsy fibula Bone biopsy tibia Description of surgery: HPI/indication: Patient is a 39-year-old female who continue to follow in wound care center for nonhealing ulceration of waxing and waning of last few months. She had previously undergone peroneal brevis tendon repair, syndesmotic reduction, and repair of the anterior inferior tibiofibular ligament on 04/22/2023. Patient had been doing well and following her suture removal 2 weeks later she did dehiscence due to rubbing/irritation of her cam boot on the lateral aspect. She did undergo local wound care with eventual transition into the wound care center with continued varying treatments. 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 However 2 to 3 weeks later she did begin to breakdown again and thus was referred to dermatology for continued management. 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 Did discuss with dermatology who also continue treatment with this diagnosis in addition to her PG which she did undergo healing of the ulcerative sites. No infection was noted during the wound duration nor her two episodes of healing. Upon third reulceration there was some scant purulence noted and thus cultures were obtained demonstrating staph epi and thus was started on oral antibiotic. MRI was also ordered in early April 2024 to rule out infection, however, insurance did cancel MRI which was scheduled for June 29, 2024. MRI was reordered with authorization and peer to peer was required and performed. Following this MRI was approved and she did undergo MRI 07/14/2024. MRI read was interpreted as intact fixation of the syndesmosis with lateral ulcer. No fluid accumulation/drainable abscess, no evidence of osteomyelitis. My independent read disagrees with those findings confirming ulcer track with osteomyelitis of the distal fibula and distal tibia following the syndesmotic fixation. Thus these findings were then discussed with the patient and she agreed to undergo the surgical procedure to remove the hardware, debride tissue, and perform a bone biopsy for confirmation. Discussed she will be referred to infectious disease for placement of PICC line and continuation of IV antibiotics she is agreeable. Risks and complications of the procedure were discussed with the patient. She is aware of these risks and was able to repeat these back. Patient agrees to the surgical procedure and did sign consent of free will. No promises were made. No guarantees were given. She did undergo medical clearance with her PCP prior to surgical intervention. Operative limb was signed prior to entering the OR. She was set to undergo removal of infected hardware, I&D of the right ankle, and bone biopsy of the right ankle at [facility] on 07/19/2024 with vascular intervention to follow for venous ablation with Dr. Salinas. Procedure: Under mild sedation patient was brought into the operating placed on table in supine position. Following induction of general anesthetic a pneumatic calf tourniquet was applied about the patient's right calf. A blanket bump was placed under the right hip and the right foot/leg were elevated via a blanket bump. The foot was then scrubbed, prepped, and draped in the usual aseptic manner. The right foot and leg were elevated and the pneumatic ankle tourniquet was inflated to 250 mmHg. At this time attention was directed to the right leg along the lateral aspect where fluoroscopic imaging was obtained demonstrating hardware fixation, syndesmotic reduction of the right lower ankle in addition to incision placement. A linear incision was made overlying the distal fibula utilizing a #15 blade. Incision was deepened via sharp and blunt dissection. There was no evidence of purulent drainage during this dissection on the lateral aspect. There was evidence of some discoloration of the tissue/tissue necrosis in addition to scar tissue from prior surgical intervention. The plate was then visualized on the lateral aspect. Incision was then made overlying the medial aspect of the right lower ankle utilizing a #15 blade. Incision was deepened through sharp and blunt dissection and care was taken to identify and retract all vital neurovascular structures. There was a small venous bleeder identified/seeping secondary to venous congestion and thus the tourniquet was deflated. An Esmarch bandage was utilized to exsanguinate the right lower extremity and the pneumatic ankle tourniquet was then reinflated to 250 mmHg. This did achieve better visualization and decrease the amount of venous congestion/bleeding. Incision was deepened down to the level of bone/Endobutton on the medial aspect of the tibia. Attention was directed back to the lateral aspect where the single 2.7 millimeter screw was removed and passed from the operative field to the table in toto. The Endobutton on the lateral aspect was identified and released removing the button and tight rope portion. The medial Endobutton was then removed from the medial aspect and passed from the field to the operative table in toto, and the fibular two hole plate hardware was collected as a sample and sent to microbiology for culture. Following debridement of the remaining necrotic tissue, which there was minimal tissue necrosis without purulent drainage from the medial or lateral aspect. The site was then flushed with copious amounts of normal sterile saline. A swab culture was obtained underlying the site of the plate against the fibular bone and sent to microbiology for aerobic and anaerobic culture. Next, a bone biopsy was performed of the distal fibula near the portion of the plate which had sunk into the bone. There was some softened portion of bone however this was not as soft as would be expected for a osteomyelitis. Bone appeared of healthy coloration of the distal fibula and distal tibia. Next, a bone biopsy was performed of the medial portion near the osseous tunnel in the distal tibia. Bone cultures were sent to microbiology and pathology for analysis. At this time Irrisept was utilized to copiously irrigate the medial and lateral incisions in addition to the osseous tunnel at the distal fibula and distal tibia. Recommended manufacture wait time was then performed following Irrisept irrigation. Then, following wait time the site was again copiously irrigated with 1000 cc pulse lavage. Following this all tissue was inspected again and noted to be of healthy color and viability. 1 g of vancomycin powder was placed in the medial incision site and packed towards the osseous tunnel. Next, deep tissues on the medial aspect were closed utilizing 4-0 Vicryl. Subcutaneous tissues were then closed utilizing 4-0 Monocryl. And the skin was then reapproximated utilizing a 2-0 Prolene in simple interrupted fashion. Next, attention was again directed to the lateral aspect where 1 g of vancomycin powder was placed throughout the tissue and packed towards the osseous tunnel of the distal fibula and against the bone where the plate had previously rested. Deep tissues were then closed utilizing 4-0 Vicryl. Subcutaneous tissue then closed utilizing 4-0 Monocryl. Skin was then reapproximated utilizing 2-0 Prolene in simple interrupted fashion. At this time pneumatic calf tourniquet was deflated and a prompt hyperemic response was noted to the digits of the right foot. Incision sites were then dressed utilizing Betadine soaked Adaptic, 4 x 4 gauze, ABD to medial and lateral aspect, Kerlix, and a 4 inch Paddy wrap rolled onto the right foot/ankle. Patient tolerated the procedure and anesthesia well. Vascular surgeon set to follow for venous ablation. My portion of the case was discussed with him in the OR prior to his procedure start. We discussed his portion of the case as well and discussed postoperative care of plan in coordination. She is to continue to elevate right lower extremity at all times of rest for postoperative edema control. She will keep dressings clean, dry, and intact to the right lower extremity and utilize shower bag when bathing to maintain compliance. She will remain nonweightbearing to the right lower extremity utilizing a knee scooter for the next 2 weeks. Will plan to transition into weightbearing as tolerated in surgical shoe at time of removal of suture and pending healing. She will also be consulted to infectious disease for placement of PICC line to continue IV antibiotic to treat osteomyelitis. She will leave my portion of the dressing intact around the right ankle until first postoperative appointment with me. Per vascular instruction she may remove her upper right leg dressing in 48 hours. She will follow-up with me for continued postoperative care back at the wound center next week. Surgical Findings: Infected hardware Osteomyelitis right ankle Complications Complications: No Admit VTE Documentation VTE Present on Admission: No VTE Mechan Device Prophylaxis: SCD's VTE Pharm Prophylaxis ordered?: No Reason prophylaxis not ordered: Treatment Not Indicated
== END 2024-07-22 23:59 | disposition home or self-care (01) ==
LOC: WC 08:15
PROVIDERS: PCP Internal Medicine; Referring Provider Student in an Organized Health Care Education/Training Program; Visit Provider Student in an Organized Health Care Education/Training Program
DX: T81.31XA Disruption of external operation (surgical) wound, not elsewhere classified, initial encounter (principal); L97.212 Non-pressure chronic ulcer of right calf with fat layer exposed; L97.312 Non-pressure chronic ulcer of right 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; L88 Pyoderma gangrenosum; Y83.8 Other surgical procedures as the cause of abnormal reaction of the patient, or of later complication, without mention of misadventure at the time of the procedure; I87.2 Venous insufficiency (chronic) (peripheral); R60.0 Localized edema; M79.3 Panniculitis, unspecified; M35.9 Systemic involvement of connective tissue, unspecified; Z79.2 Long term (current) use of antibiotics; Z79.01 Long term (current) use of anticoagulants; Z79.899 Other long term (current) drug therapy
CPT/HCPCS: 99213; 99214; G0463

== ENCOUNTER → 2024-07-14 | Outpatient (CLI) | payer MEDICARE, MEDICAID, SELFPAY ==
--- NOTE | 2024-07-14 06:48 | MRI_ITS ---
STUDY: MRI RIGHT ANKLE WITH AND WITHOUT CONTRAST REASON FOR EXAM: Female, 39 years old. NON PRESSURE CHRONIC ULCER, EDEMA, -- EVAL HEALING VS INFECTION; 1 YR POSTOP PERONEAL TENDON REPAIR TECHNIQUE: Standarized fat and water weighted pulse sequences were obtained in all 3 orthogonal plane pre and post intravenous administration of IV 30 mL Clariscan. COMPARISON: Right ankle radiographs dated 07/01/2023. FINDINGS: There is ORIF hardware in the distal fibula with syndesmosis tight rope with Endobutton across the distal tibia. Normal posterior tibialis tendon. Normal flexor digitorum longus tendon. Normal flexor hallucis longus tendon. Normal peroneus longus and brevis tendons. Normal tibialis anterior tendon. Normal extensor hallucis longus tendon. Normal extensor digitorum longus tendons. Normal Achilles tendon and teno-osseous insertion. Normal plantar fascia. Normal plantar calcaneal tubercles. Normal intrinsic muscles of the rearfoot. Normal distal tibiofibular syndesmotic ligamentous complex. Normal lateral ligamentous complex. Normal subtalar ligaments and sinus tarsi. Normal deltoid ligamentous complex. Normal plantar calcaneonavicular (spring) ligament. Normal tibiotalar articulation. Normal talar dome. Normal subtalar articulations. Normal talonavicular articulation. Normal calcaneocuboid articulation. Normal navicular-cuneiform articulations. There is ulceration along the lateral aspect of the ankle. There is mild subcutaneous soft tissue edema around the ankle and extending along the dorsum of the foot. There is no discrete fluid collection or drainable abscess. There is no abnormal contrast enhancement. MRI/Lower Ext Joint Only W/WO Cont IMPRESSION: Distal tibiofibular syndesmosis hardware. Ulceration along the lateral aspect of the ankle. Mild subcutaneous soft tissue edema around the ankle and extending along the dorsum of the foot. No discrete fluid collection or drainable abscess. No abnormal contrast enhancement. Electronically Signed: David Muller MD at 9:29 EST ,
== END | disposition home or self-care (01) ==
PROVIDERS: PCP Internal Medicine; Referring Provider Student in an Organized Health Care Education/Training Program; Visit Provider Student in an Organized Health Care Education/Training Program
DX: L97.212 Non-pressure chronic ulcer of right calf with fat layer exposed (principal); L97.313 Non-pressure chronic ulcer of right ankle with necrosis of muscle; L88 Pyoderma gangrenosum; R60.0 Localized edema
CPT/HCPCS: 73723; A9575

== ENCOUNTER → 2024-07-18 | Outpatient (CLI) | payer MEDICARE, MEDICAID, SELFPAY ==
[2024-07-18 15:39] LABS: Absolute Lymphocyte Count 0.97 X10^3/uL (0.83-4.51); Absolute Neutrophil Count 4.8 X10^3/uL (2.0-7.7); Basophil# 0.02 X10^3/uL; Basophil% 0.3 % (0-1); Eosinophil# 0.16 X10^3/uL; Eosinophils% 2.4 % (0-5); Hematocrit 42.6 % (37-47); Hemoglobin 12.7 g/dL (12.0-15.0); Lymphocyte # 0.97 X10^3/ul (0.83-4.51); Lymphocyte % 14.3 % (19-41); Mean Corp Hgb Conc 29.8 g/dL (32-36); Mean Corpuscular Hgb 24.6 pg (27.0-32.0); Mean Corpuscular Volume 82.4 fL (81-99); Mean Platelet Vol. 9.7 fl (6.2-12.0); Monocyte# 0.79 X10^3/uL; Monocyte% 11.6 % (0-10); NRBC Flagged by Analyzer 0 % (0-5); Neutrophil % 70.5 % (47-70); Platelet Count 298 K/mm3 (150-450); RBC Distribution Width CV 15.9 % (11.6-14.6); RBC Distribution Width SD 47.6 fl (35.1-43.9); Red Blood Count 5.17 M/mm3 (4.2-5.4); White Blood Count 6.8 K/mm3 (4.4-11.0)
[2024-07-18 15:52] LABS: Vitamin D,25 Hydroxy 59.4 ng/mL
[2024-07-18 15:55] LABS: ALB/GLOB Ratio 0.9 RATIO (0.9-2.4); AST(SGOT) 31 U/L (15-37); Alanine Aminotransfer ALT/SGPT 40 U/L (13-56); Albumin, Serum 3.5 g/dL (3.2-5.0); Alkaline Phosphatase 153 U/L (45-117); Anion Gap 8 (5-15); BUN 10 mg/dL (7-18); BUN/Creat Ratio 13.9 RATIO (10-20); Calcium,Total 9.2 mg/dL (8.5-10.1); Chloride 104 mmol/L (98-107); Cholesterol 151 mg/dL (200); Creatinine, Serum 0.72 mg/dL (0.55-1.02); EST Glomerular Filtration Rate 95 mL/min (>60); Est Glom Filt Rate - Afr Amer 115 mL/min (>60); Globulin 4.1 g/dL (2.2-4.2); Glucose 94 mg/dL (74-106); High Density Lipoprotein 45 mg/dL; Potassium 3.8 mmol/L (3.5-5.1); Protein, Total 7.6 g/dL (6.4-8.2); Sodium Level 137 mmol/L (136-145); Triglycerides 134 mg/dL; Very Low Density Lipoprotein 27 mg/dL (5-40)
== END | disposition home or self-care (01) ==
LOC: MFPLAB 11:06
PROVIDERS: PCP Family Medicine; Referring Provider Family Medicine; Visit Provider Family Medicine
DX: D64.9 Anemia, unspecified (principal); A18.01 Tuberculosis of spine; Z13.1 Encounter for screening for diabetes mellitus; R79.89 Other specified abnormal findings of blood chemistry
CPT/HCPCS: 36415; 80053; 80061; 82306; 85025

== ENCOUNTER 2024-07-19 05:43 | Day surgery (SDC) | payer MEDICARE, MEDICAID, SELFPAY ==
[2024-05-31 15:34] LABS: Hematocrit 44.1 % (37-47); Hemoglobin 13.3 g/dL (12.0-15.0); Mean Corp Hgb Conc 30.2 g/dL (32-36); Mean Corpuscular Hgb 24.4 pg (27.0-32.0); Mean Corpuscular Volume 81.1 fL (81-99); Mean Platelet Vol. 9.5 fl (6.2-12.0); Platelet Count 303 K/mm3 (150-450); RBC Distribution Width CV 16.8 % (11.6-14.6); RBC Distribution Width SD 48.6 fl (35.1-43.9); Red Blood Count 5.44 M/mm3 (4.2-5.4); White Blood Count 7.4 K/mm3 (4.4-11.0)
[2024-05-31 16:29] LABS: Anion Gap 6 (5-15); BUN 9 mg/dL (7-18); BUN/Creat Ratio 12.2 RATIO (10-20); Calcium,Total 9.3 mg/dL (8.5-10.1); Chloride 110 mmol/L (98-107); Creatinine, Serum 0.74 mg/dL (0.55-1.02); EST Glomerular Filtration Rate 93 mL/min (>60); Est Glom Filt Rate - Afr Amer 112 mL/min (>60); Glucose 114 mg/dL (74-106); Potassium 4.1 mmol/L (3.5-5.1); Sodium Level 138 mmol/L (136-145)
[2024-07-19] VITALS (17 sets, daily range): BP systolic 113–153; BP diastolic 53–104; PULSE 78–104; RESP 14–20; TEMP 36.4–37.3; O2SAT 91–96; BMI 54.7
--- NOTE | 2024-07-19 05:50 | RAD_ITS ---
EXAM: XR CHEST, 2 VIEWS CLINICAL INDICATION: PREOP TECHNIQUE: Frontal and lateral views of the chest. COMPARISON: XR Chest dated 07/01/2023 FINDINGS: LUNGS AND PLEURAL SPACES: Normal. No consolidation or edema. No pneumothorax. No effusion. HEART: Normal heart size. MEDIASTINUM: No mediastinal or hilar mass. BONES/JOINTS: No acute abnormality. RAD/Chest PA and Lateral IMPRESSION: No acute cardiopulmonary abnormality. No interval change. Electronically Signed: Colt Crockett MD at 8:17 EST ,
[2024-07-19 06:33] LABS: Internal QC Validated? YES +Cl - CLEAR BKGD; Pregnancy, Urine Negative Negative
[2024-07-19] MEDS: 0.9% Normal Saline (1000mL) 1,000 ML 15 ML IV (06:52)
--- NOTE | 2024-07-19 07:15 | RAD_ITS ---
PROCEDURE: ANKLE 2 VIEWS; O.R. FLUORO FOR C-ARM REASON FOR EXAM: Hardware removal and/or drainage right ankle TECHNIQUE: Intraoperative fluoroscopy and 7 fluoroscopic images obtained COMPARISON: Right ankle series of 07/01/2023 RAD/Ankle 2 Views IMPRESSION: Intraoperative fluoroscopy was performed, along with 7 fluoroscopic images duri ng removal hardware. Reading Location: [id number]
--- NOTE | 2024-07-19 07:15 | RAD_ITS ---
PROCEDURE: ANKLE 2 VIEWS; O.R. FLUORO FOR C-ARM REASON FOR EXAM: Hardware removal and/or drainage right ankle TECHNIQUE: Intraoperative fluoroscopy and 7 fluoroscopic images obtained COMPARISON: Right ankle series of 07/01/2023 RAD/O.R. Fluoro for C-Arm IMPRESSION: Intraoperative fluoroscopy was performed, along with 7 fluoroscopic images duri ng removal hardware. Reading Location: [id number]
--- NOTE | 2024-07-19 07:20 | PCM.PRE.AN2 ---
ASA Classification* ASA Classification ASA Classification: 3 Assessment & Plan Anesthesia* Anesthesia Assessment Anesthesia Assessment: Discussed sedation and/or anesthesia options, risks, benefits, and alternatives with patient/parents/legal guardian/POA. Questions invited. The patient/parents/legal guardian/POA seems to understand and agrees to proceed with anesthesia plan. Reviewed the physical assessment, medical history, allergy history and patient home medications list prior to surgery/procedure/anesthetic and documented any changes. Performed airway and anesthesia risk assessments. Anesthesia Type Anesthesia Type: General and Block (Patient is consented for popliteal block as long as this is not in the region of the surgery.) History Source History Obtained from:: Patient and Chart Anesthesia Focused Assessment* Temperature: 99.2 F Pulse Rate: 90 Blood Pressure: 128/69 Respiratory Rate: 18 Pulse Ox: 96 Oxygen Delivery Method: Room Air Airway Assessment Mouth opens: >3 cm Mallampati Score: II Teeth Condition: Missing (Left lower molar missing. Rest of the teeth are tight.) Neck Range of motion (ROM): Limited ROM (Slight decrease in extension) Focused Labs Anesthesia Preop lab: CBC WBC 6.8 K/mm3 (4.4-11.0) 07/18/24 11:07 RBC 5.17 M/mm3 (4.2-5.4) 07/18/24 11:07 Hgb 12.7 g/dL (12.0-15.0) 07/18/24 11:07 Hct 42.6 % (37-47) 07/18/24 11:07 Plt Count 298 K/mm3 (150-450) 07/18/24 11:07 CHEMISTRY Potassium 3.8 mmol/L (3.5-5.1) 07/18/24 11:07 Sodium 137 mmol/L (136-145) 07/18/24 11:07 BUN 10 mg/dL (7-18) 07/18/24 11:07 Creatinine 0.72 mg/dL (0.55-1.02) 07/18/24 11:07 Glucose 94 mg/dL (74-106) 07/18/24 11:07 COAG PT 14.0 SECONDS (11.7-14.9) 07/01/23 15:35 Urine Test Negative Negative 07/19/24 06:10 Pre-Assessment Diagnosis/Proposed Procedure Planned Operative Procedure(s): RIGHT SAPHENOFEMORAL JUNCTION LIGATION GREAT SAPHENOUS ABLATION PER DR TANG RIGHT ANKLE HARDWARE REMOVAL WITH I&D PER DR AMOR Anesthesia History 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 When Was Last Pacemaker Check QUESTION #4 FULL TEXT: You/Your Family Experience fever (hyperthermia) with Anesthesia Last Oral Intake Last Oral intake: Last Oral Intake NPO since 05:00 07/19/24 06:47 Meds taken in AM with sips of Yes 07/19/24 06:47 water? Meds patient instructed to see home med list 07/19/24 06:47 take am of surgery Any additional information?: Yes Meds taken in AM with sips of water?: Yes PONV PONV - jewelry internship: PONV - jewelry internship Female Yes 07/18/24 08:49 HX of Motion Sickness Yes 07/18/24 08:49 HX of N/V After Surgery Yes 07/18/24 08:49 Non-Smoker Yes 07/18/24 08:49 Duration of Surgery greater Yes 07/18/24 08:49 than 60 minutes Number of Risk Factors 5 07/18/24 08:49 PONV Score Severe Risk 07/18/24 08:49 Height & Weight Height & Weight: Anesthesia: Height & Weight Height 5 ft 10 in 07/19/24 06:47 Weight: 78.471 kg 07/19/24 06:47 Body Mass Index (BMI) 24.8 07/19/24 06:47 Respiratory Assessment Respiratory Assessment - jewelry internship: Respiratory Tract Infection Hx - jewelry internship Hx Respiratory Tract Infection No 07/18/24 08:49 STOP Sleep Apnea STOP Sleep Apnea - jewelry internship: STOP Sleep Apnea - jewelry internship Hx Hypertension No 07/18/24 08:49 Hx Sleep Apnea Yes: USE MOUTH REMEDIOS/ 07/18/24 08:49 NONCOMPLIANT AT TIMES CPAP No 07/18/24 08:49 BIPAP No 07/18/24 08:49 Do you snore loudly (louder than talking or can be heard Do you often feel tired/ fatigued/ sleepy during daytime? Has anyone observed you stop breathing during sleep? STOP Results Positive 07/18/24 08:49 QUESTION #5 FULL TEXT : Do you snore loudly (louder than talking or can be heard through closed doors)? 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 Specify any problems Hx of Preganancy in last 3 No 07/18/24 08:49 Months Nurse Filling Out Transfusion DSCHRIBER 07/18/24 08:49 & Questions: Date: 07/18/24 07/18/24 08:49 Time: 08:49 07/18/24 08:49 Patient unable to answer at this time (ie. confused, unrespo /Reproduction History /Reproductive History - jewelry internship: /Reproductive Hx- jewelry internship Hx Now Gestational Age (in weeks): EDC: Hx Hx Para Hx Section SAB No 07/18/24 08:49 Active Medications Active Medications: Current Medications Generic Name Dose Route Start Last Admin Trade Name Freq PRN Reason Stop Dose Admin Clindamycin Phosphate 900 mg in 50 mls @ 75 mls/hr 07/19/24 07:00 Cleocin IV 07/19/24 07:39 PREOP ONE Sodium Chloride 1,000 mls @ 15 mls/hr 07/19/24 06:15 07/19/24 06:52 IV 02/02/25 19:34 15 mls/hr .Q48H MARKEL Administration Protocol [facility] Medical History Open wound Wears glasses Walker as ambulation aid Fatty liver Restless legs Chronic headaches Injury of head and neck Blackout Syncope Difficulty swallowing Shortness of breath on exertion History of pain when walking History of edema Cardiology follow-up encounter Lupus Bilateral lower extremity edema Anemia Anxiety Depression GERD (gastroesophageal reflux disease) Non-smoker Sleep apnea POTS (postural orthostatic tachycardia syndrome) Narcolepsy Sjogrens syndrome Vasculitis Chronic pain Home Medications ?Medication ?Instructions ?Recorded ?Last Taken ?Type Veramist 2 spray DAILY allergies 12/13/15 07/18/24 History cetirizine 10 mg capsule (Zyrtec) 10 mg PO DAILY allergies 12/13/15 07/19/24 History pantoprazole 40 mg tablet,delayed 40 mg PO BID stomach 12/13/15 07/19/24 History release albuterol sulfate 90 mcg/actuation 2 puff inhalation Q4H PRN PRN 01/09/21 04/01/21 17:00 Rx aerosol inhaler (Ventolin HFA) Wheezing #1 device buprenorphine HCl 300 mcg buccal 300 mcg buccal BID pain 01/09/21 07/18/24 History film (Belbuca) escitalopram oxalate 20 mg tablet 20 mg PO DAILY anxiety 01/09/21 07/19/24 History ferrous sulfate 325 mg (65 mg 325 mg PO QODAY supplement 01/09/21 07/18/24 History iron) tablet gabapentin 600 mg tablet 600 mg PO TID restless legs 01/09/21 07/18/24 History sodium, calcium, magnesium, 4.25 g PO 0030 narcolepsy 01/09/21 03/31/21 00:00 History potassium oxybates 0.5 gram/mL oral soln (Xywav) sucralfate 1 gram tablet 2 g PO QHS stomach 01/09/21 07/18/24 History cholecalciferol (vitamin D3) 25 1,000 unit PO DAILY 04/17/23 07/19/24 History mcg (1,000 unit) capsule colestipol 1 gram tablet 2 g PO QHS 04/17/23 07/18/24 History famotidine 40 mg tablet 40 mg PO DAILY 04/17/23 07/19/24 History modafinil 200 mg tablet 200 mg PO DAILY 04/17/23 07/18/24 History mycophenolate mofetil 500 mg tablet 1,500 mg PO BID 04/17/23 07/18/24 History sodium, calcium, magnesium, 4 g PO 0300 04/17/23 07/18/24 History potassium oxybates 0.5 gram/mL oral soln (Xywav) adalimumab 80 mg/0.8 mL 80 mg subcut CHOW 05/12/24 Unknown History subcutaneous pen kit (Humira(CF) Pen) epinephrine 0.3 mg/0.3 mL 0.3 ml IM UD PRN allergies 06/01/24 Unknown History injection, auto-injector ondansetron 4 mg disintegrating 4 mg PO Q8H PRN nausea and vomiting 06/01/24 Unknown History tablet ergocalciferol (vitamin D2) 1,250 1,250 mcg PO QWEEK 07/18/24 Unknown History mcg (50,000 unit) capsule (Vitamin D2) Allergy/AdvReac Type Severity Reaction Status Date / Time dog dander Allergy Shortness Verified 07/19/24 06:46 of breath infliximab (From Remicade) Allergy Anaphylaxis Verified 07/19/24 06:46 pollen extracts Allergy Shortness Verified 07/19/24 06:46 of breath rituximab (From Rituxan) Allergy Anaphylaxis Verified 07/19/24 06:46 cephalexin AdvReac Nausea Verified 07/19/24 06:46 montelukast sodium (From AdvReac Unknown Verified 07/19/24 06:46 Singulair) sulfamethoxazole (From AdvReac Upset Verified 07/19/24 06:46 Bactrim) Stomach trimethoprim (From Bactrim) AdvReac Upset Verified 07/19/24 06:46 Stomach Family History Other Allergies Asthma Cancer Diabetes Heart disease Surgical History History of ankle surgery History of esophagogastroduodenoscopy (EGD) History of cholecystectomy History of tonsillectomy Social History Smoking Status: Never smoker Review of Systems (Anesthesia) ROS Narrative System reviewed and no additional complaints, except as documented.
--- NOTE | 2024-07-19 07:30 | BON_PTH ---
PATIENT: DARRYL NICHOLS LOC: [facility] [place] U[place][id number] AGE/SX: 39/F ROOM: RE07/19/[address]: Dr. Kevin Salinas MD : [id number] BED: DIS: 07/19/2024 SPEC #: [id number] RECD: 07/19/24 13:57 STATUS: JESU REJessy #: [id number] LISETTE: 07/19/24 07:[address]: Kevin Salinas DEPT: SURGICAL PATHOLOGY RECD BY: Gaurav Sheldon ENTERED: 07/20/24 08:11 SP TYPE: Bone OTHR DR: Dr. Almaz Rosas MD Tissues: Tibia, NOS Procedures: Decalcification bone/plaque Surgery Specimen Level IV HEADER OPERATION: Removal hardware and drainage right ankle and bone biopsy PRE-OP DIAGNOSIS: Infected hardware right ankle TISSUE SUBMITTED: Bone - right tibia MICROSCOPIC DIAGNOSIS Right tibia bone, excision: A piece of bone with acute osteomyelitis. 07/21/2024 MICROSCOPIC DESCRIPTION Slides are reviewed. GROSS DESCRIPTION Received in fixative is one container labeled with the patient's name and designated Bone right tibia. The specimen consists of a piece of bone measuring 0.2 x 0.1 x 0.1cm. The entire specimen is submitted in one cassette after decalcification. JANET. 07/20/2024 TC:2 CPT:28632,83990
--- NOTE | 2024-07-19 07:42 | PCM.HP.STD ---
HPI - General HPI Narrative DARRYL NICHOLS, is a 39 F who presents with chronic right medial ankle wound consistent with venous etiology as well as chronic wound at lateral ankle surgical site after tendon repair. She has reflux in the SFJ and troughout the GSV. [facility] Medical History Open wound Wears glasses Walker as ambulation aid Fatty liver Restless legs Chronic headaches Injury of head and neck Blackout Syncope Difficulty swallowing Shortness of breath on exertion History of pain when walking History of edema Cardiology follow-up encounter Lupus Bilateral lower extremity edema Anemia Anxiety Depression GERD (gastroesophageal reflux disease) Non-smoker Sleep apnea POTS (postural orthostatic tachycardia syndrome) Narcolepsy Sjogrens syndrome Vasculitis Chronic pain Home Medications ?Medication ?Instructions ?Recorded ?Last Taken ?Type Veramist 2 spray DAILY allergies 12/13/15 07/18/24 History cetirizine 10 mg capsule (Zyrtec) 10 mg PO DAILY allergies 12/13/15 07/19/24 History pantoprazole 40 mg tablet,delayed 40 mg PO BID stomach 12/13/15 07/19/24 History release albuterol sulfate 90 mcg/actuation 2 puff inhalation Q4H PRN PRN 01/09/21 04/01/21 17:00 Rx aerosol inhaler (Ventolin HFA) Wheezing #1 device buprenorphine HCl 300 mcg buccal 300 mcg buccal BID pain 01/09/21 07/18/24 History film (Belbuca) escitalopram oxalate 20 mg tablet 20 mg PO DAILY anxiety 01/09/21 07/19/24 History ferrous sulfate 325 mg (65 mg 325 mg PO QODAY supplement 01/09/21 07/18/24 History iron) tablet gabapentin 600 mg tablet 600 mg PO TID restless legs 01/09/21 07/18/24 History sodium, calcium, magnesium, 4.25 g PO 0030 narcolepsy 01/09/21 03/31/21 00:00 History potassium oxybates 0.5 gram/mL oral soln (Xywav) sucralfate 1 gram tablet 2 g PO QHS stomach 01/09/21 07/18/24 History cholecalciferol (vitamin D3) 25 1,000 unit PO DAILY 04/17/23 07/19/24 History mcg (1,000 unit) capsule colestipol 1 gram tablet 2 g PO QHS 04/17/23 07/18/24 History famotidine 40 mg tablet 40 mg PO DAILY 04/17/23 07/19/24 History modafinil 200 mg tablet 200 mg PO DAILY 04/17/23 07/18/24 History mycophenolate mofetil 500 mg tablet 1,500 mg PO BID 04/17/23 07/18/24 History sodium, calcium, magnesium, 4 g PO 0300 04/17/23 07/18/24 History potassium oxybates 0.5 gram/mL oral soln (Xywav) adalimumab 80 mg/0.8 mL 80 mg subcut CHOW 05/12/24 Unknown History subcutaneous pen kit (Humira(CF) Pen) epinephrine 0.3 mg/0.3 mL 0.3 ml IM UD PRN allergies 06/01/24 Unknown History injection, auto-injector ondansetron 4 mg disintegrating 4 mg PO Q8H PRN nausea and vomiting 06/01/24 Unknown History tablet ergocalciferol (vitamin D2) 1,250 1,250 mcg PO QWEEK 07/18/24 Unknown History mcg (50,000 unit) capsule (Vitamin D2) Allergy/AdvReac Type Severity Reaction Status Date / Time dog dander Allergy Shortness Verified 07/19/24 06:46 of breath infliximab (From Remicade) Allergy Anaphylaxis Verified 07/19/24 06:46 pollen extracts Allergy Shortness Verified 07/19/24 06:46 of breath rituximab (From Rituxan) Allergy Anaphylaxis Verified 07/19/24 06:46 cephalexin AdvReac Nausea Verified 07/19/24 06:46 montelukast sodium (From AdvReac Unknown Verified 07/19/24 06:46 Singulair) sulfamethoxazole (From AdvReac Upset Verified 07/19/24 06:46 Bactrim) Stomach trimethoprim (From Bactrim) AdvReac Upset Verified 07/19/24 06:46 Stomach Family History Other Allergies Asthma Cancer Diabetes Heart disease Surgical History History of ankle surgery History of esophagogastroduodenoscopy (EGD) History of cholecystectomy History of tonsillectomy Social History Smoking Status: Never smoker ROS Constitutional Constitutional: Denies chills, fever(s), frequent falls, lethargy or weakness Eyes Eyes: Denies blind spots, change in vision or loss of vision ENT HEENT: Denies bleeding gums, hoarseness or sore throat Cardiovascular Cardiovascular: Denies abdominal pain, bluish discoloration of hand/feet, chest pain with activity, claudication, cold extremities, cyanosis, dyspnea on exertion, erythema on extremities, irregular heart rhythm, leg edema, leg ulcers, numbness in extremities or weakness in extremities Respiratory/Chest Respiratory/Chest: Denies cough, excessive phlegm production, shortness of breath at rest, shortness of breath with exertion or wheezing Gastrointestinal Gastrointestinal: Denies anorexia, change in stool character, constipation, diarrhea, melena or rectal bleeding Genitourinary Genitourinary: Denies dysuria or hematuria Musculoskeletal Musculoskeletal: Denies abnormal gait Integumentary Integumentary: Reports other Details: ; Denies erythema, non-healing lesions or wounds Neurologic Neurologic: Denies abnormal speech, focal weakness, headache(s), loss of vision, numbness, paresthesias or sensory deficit Hematologic/Lymphatic Hematologic/Lymphatic: Denies easy bleeding, easy bruising or lymphadenopathy Vital Signs Vital Signs Vital Signs: 07/19/24 06:47 07/19/24 06:47 07/19/24 07:31 Temperature 99.2 F H 99.2 F H Temperature Source Temporal Pulse Rate 90 90 Respiratory Rate 18 18 Respiratory Pattern Normal Blood Pressure 128/69 H 128/69 H Blood Pressure Mean 88 Blood Pressure Source Monitor Blood Pressure Position Semi-Fowlers Blood Pressure Location Right Forearm Pulse Ox 96 96 Oxygen Delivery Method Room Air Room Air Weight Weight: 381 lb 6.395 oz Body Mass Index (BMI) 54.7 Physical Exam Const alert, oriented x3, no apparent distress and healthy appearing General Appearance: cooperative; Negative for combative or lethargic Orientation / Consciousness: awake Exam Limitations: no limitations HEENT Head and Scalp: normocephalic and atraumatic Eyes EOMs intact bilaterally General Eye: normal appearance of both eyes Neck full ROM General: trachea midline Resp normal respiratory effort and no use of accessory muscles Effort and Inspection: Negative for labored, stridor or audible wheezes Cardio regular rate and regular rhythm Back/Spine Cervical Spine: cervical ROM normal Extremity full ROM, normal capillary refill and no clubbing, cyanosis or edema Skin no rashes or lesions noted and no wounds Neuro oriented x3, CN's II-XII intact bilaterally, no focal motor deficits and no sensory deficits noted Psych thought process normal, cooperative, affect normal, speech normal and activity/motor behavior normal Results Lab / Micro Data 05/31/24 14:52 05/31/24 14:52 Labs: Laboratory Results - last 24 hr 07/19/24 06:10: Urine Test Negative Assessment & Plan Assessment/Plan (1) Venous insufficiency (chronic) (peripheral): PLAN: -SFJ ligation, thigh GSV RF ablation
[2024-07-19] MEDS: Clindamycin 900 MG/50 ML BAG 75 MG IV (08:00)
[2024-07-19] MEDS: Vancomycin IV 1,000 MG/20 ML Vial 2000 MG OPERA.SITE (09:35)
[2024-07-19] MEDS: NORMAL SALINE OPERA.SITE (12:07)
[2024-07-19] MEDS: LIDOCAINE OPERA.SITE (12:07)
[2024-07-19] MEDS: [UNRECOGNIZED DRUG - OTHER] OPERA.SITE (12:07)
--- NOTE | 2024-07-19 12:22 | EX.PCM.DISCH ---
Discharge Instructions Diet Discharge Diet: No restrictions Activity May shower in (days): 2 Weight Bearing Status: No weight bearing (right foot) Lifting Restrictions: not >20 lbs for 14 days Dressing / Incision Call your doctor if your incision/area has: Sudden Increased Bleeding, Increased Pain/ Swelling, Increased Redness and Foul Smelling Discharge Call your doctor if you observe: Fever of 101 or Higher Remove Dressing in: 2 days (leg jenniffer wrap and vein site dressings; foot jenniffer wrap remains until office with Dr. Cummins) Cleanse incision/area with: Soap & Water Follow Up Care Test Results: Test results from this visit will be discussed in further detail at your follow-up appointment, if applicable. Discharge Plan Admission Attending Provider: Kevin Salinas Primary Care Provider: Almaz Rosas Instructions Print Language: [place] Discharge Orders/Prescriptions Prescriptions: New oxycodone 5 mg tablet 5 mg PO Q8H PRN (Reason: pain) 2 Days Qty: 6 0RF Xarelto 10 mg tablet 10 mg PO DAILY Qty: 30 0RF Continued Humira(CF) Pen 80 mg/0.8 mL pen injector kit 80 mg subcut CHOW Rx Instructions: inject two - 80 mg/0.8 mL pens on Day 1; inject one - 80 mg/0.8 mL pen on Day 15 of therapy subcut pantoprazole 40 MG tablet 40 mg PO BID Zyrtec 10 MG capsule 10 mg PO DAILY Veramist 2 spray NASAL DAILY gabapentin 600 mg tablet 600 mg PO TID Patient Comments: TAKE 1 TABLET BY MOUTH THREE TIMES DAILY FOR RESTLESS LEG SYNDROM sucralfate 1 gram tablet 2 g PO QHS Patient Comments: TAKE 1 TABLET BY MOUTH BEFORE MEALS AND AT BEDTIME. ferrous sulfate 325 mg (65 mg iron) tablet 325 mg PO QODAY Patient Comments: TAKE 1 TABLET BY MOUTH EVERY OTHER DAY escitalopram oxalate 20 mg tablet 20 mg PO DAILY Patient Comments: TAKE 1 TABLET BY MOUTH EVERY DAY buprenorphine HCl [Belbuca] 300 mcg film 300 mcg BUCCAL BID Patient Comments: DISSOLVE ON TONGUE 2 TIMES A DAY FOR 28 DAYS Xywav 0.5 gram/mL Solution 4.25 g PO 0030 albuterol sulfate [Ventolin HFA] 90 mcg/actuation HFA aerosol inhaler 2 puff inhalation Q4H PRN PRN (Reason: Wheezing) Qty: 1 0RF Xywav 0.5 gram/mL solution 4 g PO 0300 Rx Instructions: administer the first dose at bedtime and the second dose 2.5-4 hours later colestipol 1 gram tablet 2 g PO QHS Patient Comments: take 1 tablet by mouth twice a day mycophenolate mofetil 500 mg tablet 1,500 mg PO BID Patient Comments: take 3 tablets by mouth twice a day modafinil 200 mg tablet 200 mg PO DAILY Patient Comments: take 1 tablet by mouth every morning cholecalciferol (vitamin D3) 25 mcg (1,000 unit) capsule 1,000 unit PO DAILY Patient Comments: take 1 capsule by mouth once daily famotidine 40 mg tablet 40 mg PO DAILY Patient Comments: take 1 tablet by mouth once daily epinephrine 0.3 mg/0.3 mL auto-injector 0.3 ml IM UD PRN (Reason: allergies) ondansetron 4 mg tablet,disintegrating 4 mg PO Q8H PRN (Reason: nausea and vomiting) ergocalciferol (vitamin D2) [Vitamin D2] 1,250 mcg (50,000 unit) capsule 1,250 mcg PO QWEEK Referrals / Follow Up: Almaz Rosas MD [Primary Care Provider] - Disposition Disposition (needs filled in before D/C Order can be placed): Home, Self Care
--- NOTE | 2024-07-19 13:05 | RAD_ITS ---
PROCEDURE: ANKLE MIN 3 VIEWS REASON FOR EXAM: Postoperative examination TECHNIQUE: 3 views of the right ankle COMPARISON: Preoperative study 07/01/2023 RAD/Ankle min 3 Views IMPRESSION: Following metallic removal, stable alignment is seen. No ankle joint effusion is appreciated. Normal contour of the Achilles tendon is seen. No postoperative complication is seen. No fracture site is evident. Reading Location: [id number]
--- NOTE | 2024-07-19 13:45 | PCM.POST.ANE ---
Anesthesia: Postop Eval I Current Vital Signs Temperature: 97.5 F Pulse Rate: 104 Blood Pressure: 147/102 Respiratory Rate: 20 Pulse Ox: 95 Oxygen Delivery Method: Room Air Assessment Airway patent: Yes Spontaneous unlabored respirations: Yes Mental status: Awake and Calm nausea: No Vomiting: No Anesthesia Complication: No Fluid Hydration Crystalloid volume administer (ml): 1,600 Total IV fluid infused: 1,600 Progress Note Anesthesia document: Postop Eval 1 completed: Yes
--- NOTE | 2024-07-19 17:21 | PCM.OPRPT ---
Operative Report (Standard) Operative Information Date of Procedure: 07/19/24 Pre-Operative Diagnosis: Venous insufficiency with ulceration of the right medial and lateral ankle Post-Operative Diagnosis: Same Surgery/Procedure Performed: Ligation right saphenofemoral junction Radiofrequency ablation right great saphenous vein sergeant of corrections: Yes Medical Staff Physician: Maty Dye Tasks completed by assistive technology specialist: Opening, Closing, Opening & closing, Hemostasis: Tie and Retracting Type of Anesthesia: General RN Documented Start/Stop Times: Operation Date: 07/19/24 07:30 Case Time Into Pre-Op 07/19/24 06:09 Out of Pre-Op 07/19/24 07:39 Anesthesia Start 07/19/24 07:52 Into Room 07/19/24 07:52 Procedure Start 07/19/24 08:22 Procedure End 07/19/24 12:33 Anesthesia End 07/19/24 12:43 Out of Room 07/19/24 12:43 Into Recovery 07/19/24 12:45 Into Phase II Recovery 07/19/24 15:21 Out of Recovery 07/19/24 15:21 Procedure Start Time: 10:00 Procedure Stop Time: 12:30 Select all DRAINS/GRAFTS/IMPLANTS that apply: None Estimated Blood Loss: 500 Specimen collected: No Description of surgery: HPI: Patient is a 39-year-old female with chronic venous skin changes and ulceration of the medial lateral ankle, the lateral ulceration at the site of a prior surgical intervention. The hardware is going to be removed for potential concerns for infection and is felt that the venous insufficiency is contributing to her poor wound healing particularly at the nonsurgical site. She is taken now for saphenofemoral ligation with radiofrequency ablation of the great saphenous vein. Description of procedure: Upon obtaining form consent and verification correct patient procedure site the patient was taken to the operating room where she was placed under general anesthesia. She was then positioned prepped and draped in usual sterile fashion a time was performed. Dr. Cummins performed his portion of the procedure which she will dictate separately after which time the patient was reprepped and draped and new timeout performed. Ultrasound was used to evaluate the great saphenous vein from the medial mid calf to the saphenofemoral junction. The skin was marked as was the location of the saphenofemoral junction. Oblique incision was made and Bovie electrocautery was dissect down through subcutaneous tissue and self-retaining retractors put in position. Further dissection was then carried down until the saphenous vein was visualized and sharp dissection was used to dissect free the multiple sidebranches which were ligated with silk ties and divided. We then followed to the saphenous up to the saphenofemoral junction which was then circumferentially dissected free and a right angle used to place a vessel loop. Next under ultrasound guidance the right great saphenous vein mid calf was accessed with a micropuncture needle wire. This was then exchanged for the 7 [place]i ablation sheath which was advanced without resistance. Through this the radiofrequency ablation probe was advanced under ultrasound guidance and in the mid thigh it traversed a ap processor vein into the deep system. Multiple efforts were made to redirect this and ultimately a J-wire was advanced through the wire port and used to navigate into the more cephalad saphenous vein ultimately following with ultrasound up to the saphenofemoral junction. Next the saphenofemoral junction was clamped at the proximal and distal within the surgical site and divided. The distal end was oversewn with 5-0 Prolene in running fashion in 2 layers after which the clamps removed and satisfactory stasis was noted. At this point the clamp at the junction with the deep system became dislodged and tremendous bleeding was encountered. This was controlled with manual pressure over the hole in the vein while combination of sharp and blunt dissection was utilized to dissect free the common femoral vein in order to provide better visualization. While manual pressure was held directly over the vein a series of 5-0 Prolene sutures were placed in order to provide some ability to retract the vein from the depth of the incision while placing the clamp. Ultimately were able ultimately to place tension on the Prolene sutures and place a Crescencio clamp over the hole in the vein. We were then able to successfully oversew the stump of the saphenofemoral junction with 5-0 Prolene in 2 layers after which time the clamps were removed and satisfactory stasis was noted. Next tumescent solution was injected along the great saphenous vein from the vein puncture site up to the saphenofemoral junction incision. The ablation device was then activated sequentially per scientific informatics analyst's instructions along the treatment zone. The probe and sheath were then withdrawn and manual pressure held until hemostasis was obtained. The groin incision closed with 2-0 Vicryl, 3-0 Vicryl, 4 Monocryl and Dermabond for the skin. Dry sterile dressing were then applied and Paddy wrap placed the ankle to the proximal thigh. The patient was then awake from anesthesia taken recovery room with anticipated discharge to home. Surgical Findings: See above Complications Complications: Yes Complication Details: Bleeding
--- NOTE | 2024-07-19 18:01 | SUR.PHASEII ---
pt dressed and waiting on ride.
--- NOTE | 2024-07-19 22:59 | POSTOPAN2_ITS ---
Anesthesia Postop Eval I Sum Postop Eval Completion status Anesthesia document: Postop Eval 1 completed: Yes Anesthesia Postop Eval I Summary Anesthesia Postop Eval I Summary: Anesthesia Postop Eval I: Assessment Summary Airway patent Yes 07/19/24 13:46 LINE CONSTRUCTION [email or web address] Spontaneous unlabored Yes 07/19/24 13:46 LINE CONSTRUCTION [email or web address].[email or web address] respirations Mental status Awake,Calm 07/19/24 13:46 LINE CONSTRUCTION [email or web address].[email or web address] nausea No 07/19/24 13:46 LINE CONSTRUCTION [email or web address].[email or web address] Vomiting No 07/19/24 13:46 LINE CONSTRUCTION [email or web address].[email or web address] Anesthesia Postop Eval I: Fluid Summary Crystalloid volume administer 1,600 07/19/24 13:46 LINE CONSTRUCTION [email or web address] (ml) Colloids volume administered ( ml) Blood Product volume administered (ml) Total IV fluid infused 1,600 07/19/24 13:46 LINE CONSTRUCTION [email or web address].[email or web address] Anesthesia Postop Eval I: Summary Notes Anesthesia Complication No 07/19/24 13:46 LINE CONSTRUCTION [email or web address].[email or web address] Anesthesia Complication Comment: Post-operative progress note Anesthesia: Postop Eval II Evaluation Mental status: Awake and Calm Pain Level: 1 nausea: No Vomiting: No Complications Anesthesia Complication: No
--- NOTE | 2024-07-19 22:59 | PCM.POSTANE2 ---
Anesthesia Postop Eval I Sum Postop Eval Completion status Anesthesia document: Postop Eval 1 completed: Yes Anesthesia Postop Eval I Summary Anesthesia Postop Eval I Summary: Anesthesia Postop Eval I: Assessment Summary Airway patent Yes 07/19/24 13:46 REFORMATORY [email or web address] Spontaneous unlabored Yes 07/19/24 13:46 REFORMATORY [email or web address].[email or web address] respirations Mental status Awake,Calm 07/19/24 13:46 REFORMATORY [email or web address] nausea No 07/19/24 13:46 REFORMATORY [email or web address] Vomiting No 07/19/24 13:46 REFORMATORY [email or web address].[email or web address] Anesthesia Postop Eval I: Fluid Summary Crystalloid volume administer 1,600 07/19/24 13:46 [email or web address] (ml) Colloids volume administered ( ml) Blood Product volume administered (ml) Total IV fluid infused 1,600 07/19/24 13:46 REFORMATORY [email or web address].[email or web address] Anesthesia Postop Eval I: Summary Notes Anesthesia Complication No 07/19/24 13:46 REFORMATORY [email or web address].[email or web address] Anesthesia Complication Comment: Post-operative progress note Anesthesia: Postop Eval II Evaluation Mental status: Awake and Calm Pain Level: 1 nausea: No Vomiting: No Complications Anesthesia Complication: No
== END 2024-07-19 20:15 | disposition home or self-care (01) ==
LOC: SDC 05:44 → AC 05:45
PROVIDERS: Anesthesiology; Student in an Organized Health Care Education/Training Program; PCP Internal Medicine; Referring Provider Surgery Trauma Surgery; Visit Provider Surgery Trauma Surgery
DX: I87.2 Venous insufficiency (chronic) (peripheral) (principal); L97.319 Non-pressure chronic ulcer of right ankle with unspecified severity; M86.161 Other acute osteomyelitis, right tibia and fibula; G89.29 Other chronic pain; D64.9 Anemia, unspecified; Z79.891 Long term (current) use of opiate analgesic; Z90.49 Acquired absence of other specified parts of digestive tract; F41.9 Anxiety disorder, unspecified; F32.A Depression, unspecified; Z79.899 Other long term (current) drug therapy; K21.9 Gastro-esophageal reflux disease without esophagitis; G25.81 Restless legs syndrome
CPT/HCPCS: 01260; 36415; 36475; 71046; 73600; 73610; 76000; 80048; 81025; 85027; 86850; 86900; 86901; 86920; 86922; 87015; 87070; 87075; 87077; 87102; 87116; 87176; 87186; 87205; 87206; 88305; 88311; A4648; C1769; C1888; C1894; J2405

== ENCOUNTER 2024-08-11 11:00 | Outpatient (RCR) | payer MEDICARE, MEDICAID, SELFPAY ==
[2024-07-23 02:17] VITALS: BP 133/84; PULSE 80; RESP 18; TEMP 36.6
[2024-07-28 09:41] VITALS: BP 153/74; PULSE 79; RESP 20; TEMP 43.6
--- NOTE | 2024-07-28 13:11 | PN.PCM_ITS ---
History of Present Illness Date of Service: 07/28/24 Chief Complaint: Surgical wound dehiscence right leg History of Wound: Patient is a 38-year-old female who subsequently developed a surgical wound dehiscence of her right lateral lower extremity. She previously underwent surgery for primary repair of split tear of the peroneus brevis tendon, primary repair of anterior tibiofibular ligament (AITFL), and syndesmotic reduction via tight rope of the right lower extremity on 04/24/2023. Following removal of sutures she developed surgical wound dehiscence secondary to continued lower extremity swelling via chronic venous insufficiency. She did undergo debridement in office 06/05/2023 and Deidre was applied at this time with Tubigrip compression. She has worn compression stockings to manage lower extremity swelling prior to surgical intervention. Patient is also noted to have autoimmune disease and is managed by rheumatology with medication and did resume all medications 2 weeks post operative per rheumatology. She was referred to the wound care center for continued wound healing. She has been applying Deidre and dry sterile dressings daily. She denies N/V/F/chills. Denies further complaints. Subjective Subjective This is a 39-year-old female who presents to the wound care center for continued follow-up of medial and lateral ankle ulceration. She did undergo debridement with removal of infected hardware of the right ankle on 07/21/2024. At that time bone biopsy was also taken of the tibia and fibula. She also underwent vascular procedure with Dr. Salinas following removal of her hardware. She has continued nonweightbearing status as instructed with use of knee scooter. She has kept dressings clean, dry, and intact to the right leg. She did miss appointment with infectious disease last week for placement of her PICC line. States pain in the right leg has improved. Currently denies N/V/F/chills. Denies further complaints. Objective Data Objective Data Vital Signs: Vital Signs Temp Pulse Resp BP 110.4 F H 79 20 H 153/74 H 07/28/24 09:41 07/28/24 09:41 07/28/24 09:41 07/28/24 09:41 Physical Exam Const alert, oriented x3 and no apparent distress General Appearance: cooperative HEENT normocephalic Eyes General Eye: normal appearance of both eyes Neck General: normal visual inspection Lymph Lymphatic: no lymphadenopathy noted and no lymphedema noted Resp normal respiratory effort Cardio regular rate and regular rhythm Extremity no calf tenderness Extremity Narrative: Right Lower Extremity: Vascular DP and PT pulses palpable bilateral. Capillary fill time less than 3 seconds to digits bilateral. Normal temperature gradient. There is hair growth present to lower extremity and digits. Dermatological: There is bilateral lower extremity edema secondary to chronic venous stasis with some hemosiderin deposition noted about the right lower extremity. Sutures intact to medial and lateral ankle. No signs of infection. Musculoskeletal: Muscle strength 5 of 5 age-appropriate. No pain to palpation about the lateral leg of the right lower extremity. No pain to palpation calf. 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 Any new allergies or adverse reactions No Had a fall/change in ADL's that may No increase risk of falls Signs or symptoms of abuse and/or No neglect since last visit Have you been in the hospital since your No last visit? Has dressing in place as prescribed Yes Has compression in place as prescribed Yes Has offloadiing in place as prescribed Yes Experienced any changes in pain level or No management Right Footwear No Footwear Pain Scale: 0-10 Numeric Is Patient Pain Free? Yes WC - Nurse 1 - General Ulcer Measurement Start: 07/28/24 09:39 Freq: Status: Active Protocol: Activity Type Activity Date Activity User E-sign Co-sign Detail Recorded Client Recorded Date Recorded By Document 07/28/24 09:41 DL [id number] 07/28/24 09:56 DL 07/28/24 09:41 Wound Center Nurse 1 #2 RT MED ANKLE -Current Size (cm) - Length 0.1 -Current Size (cm) - Width 0.1 -Current Size (cm) - Depth 0.1 -Total Square Cm 0.01 -Photo Taken Yes -Exudate Amt Small -Wound Margin Distinct, Outline Attached -Granulation Amt None Present (0 %) -Necrosis Amt None Present (0 %) -Structure Exposed N/A -Texture (Meghan-wound Skin Appearance) Localized Edema ,Scarring -Moisture (Meghan-wound Skin Appearance) No Abnormality -Color (Meghan-wound Skin Appearance) Erythema -Temperature (Meghan-wound Skin No Abnormality Appearance) (Pt Warm) -Ulcer Cleansing Soap and Water -Foul Odor after Cleansing No -Anesthetic Used 5% Lidocaine Gel -Wound Comment(s) Incision well approximated, sutures intact #1 RT LAT ANKLE CLUSTER -Current Size (cm) - Length 0.1 -Current Size (cm) - Width 0.1 -Current Size (cm) - Depth 0.1 -Total Square Cm 0.01 -Photo Taken Yes -Exudate Amt Small -Wound Margin Distinct, Outline Attached -Granulation Amt None Present (0 %) -Necrosis Amt None Present (0 %) -Structure Exposed N/A -Texture (Meghan-wound Skin Appearance) Localized Edema ,Scarring -Moisture (Meghan-wound Skin Appearance) No Abnormality -Color (Meghan-wound Skin Appearance) No Abnormality -Temperature (Meghan-wound Skin No Abnormality Appearance) (Pt Warm) -Tenderness on Palpation (Meghan-wound No Skin Appearance) -Ulcer Cleansing Soap and Water -Foul Odor after Cleansing No -Anesthetic Used 5% Lidocaine Gel -Wound Comment(s) Sutures intact Right Calf (cm) 43 Right Ankle (cm) 28 WC - Nurse 2 - General Ulcer CM Notes Start: 07/28/24 09:39 Freq: Status: Active Protocol: Activity Type Activity Date Activity User E-sign Co-sign Detail Recorded Client Recorded Date Recorded By Document 07/28/24 10:23 [facility] [id number] 07/28/24 10:33 BMF 07/28/24 10:23 Wound Center Nurse 2 #2 RT MED ANKLE -Time 10:24 -Post Debridement (cm) - Length 0.1 -Post Debridement (cm) - Width 0.1 -Post Debridement (cm) - Depth 0.1 -Total Square (Post) (cm) 0.01 -Area of Debridement (cm) - Length 0.1 -Area of Debridement (cm) - Width 0.1 -Total Square (Area) (cm) 0.01 -Wound/Ulcer Outcome Not Healed -Bleeding Controlled with NA -Wound Comment(s) sutures #1 RT LAT ANKLE CLUSTER -Time 10:25 -Post Debridement (cm) - Length 0.1 -Post Debridement (cm) - Width 0.1 -Post Debridement (cm) - Depth 0.1 -Total Square (Post) (cm) 0.01 -Area of Debridement (cm) - Length 0.1 -Area of Debridement (cm) - Width 0.1 -Total Square (Area) (cm) 0.01 -Wound/Ulcer Outcome Not Healed -Bleeding Controlled with NA -Wound Comment(s) sutures Pain Scale: 0-10 Numeric Is Patient Pain Free? Yes - Nurse 3 - General Ulcer D/C NN Start: 07/28/24 09:39 Freq: Status: Active Protocol: Activity Type Activity Date Activity User E-sign Co-sign Detail Recorded Client Recorded Date Recorded By Document 07/28/24 10:53 DL [id number] 07/28/24 10:55 DL 07/28/24 10:53 Wound Care Center Nurse 3 #2 RT MED ANKLE -Ulcer Cleansing Rinsed/ Irrigated with Saline -Foul Odor after Cleansing No -Primary Dressing Applied NonAdherent Contact Layer -Other Dressing Betadine -Primary Dressing Covered/Secured with Dry Gauze & Roll Gauze, Secured with Tape #1 RT LAT ANKLE CLUSTER -Ulcer Cleansing Rinsed/ Irrigated with Saline -Foul Odor after Cleansing No -Primary Dressing Applied NonAdherent Contact Layer -Other Dressing betadine -Primary Dressing Covered/Secured with Dry Gauze & Roll Gauze, Secured with Tape Right -Compression Wrap Paddy Wrap Treatment Response Procedure Tolerated Well Pain Scale: 0-10 Numeric Is Patient Pain Free? 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 DOS: 07/21/2024. POD #7 Does have history of PG, which does complicate wound healing. Dressings were removed and site was inspected with sutures intact at the medial and lateral ankle. There is improvement noted in localized erythema about her previous ulceration sites. No signs of infection about the sutures. Site was then dressed again with Betadine soaked Adaptic, 4 x 4 gauze, Kerlix, and 4 inch Paddy wrap rolled onto the foot. She is to remain nonweightbearing to the right lower extremity with the assistance of a knee scooter. May continue to wear the surgical shoe to the right foot. She is instructed to keep dressings clean, dry, and intact to the right foot She is also to continue to elevate right lower extremity at times of rest for postoperative edema control. She did miss appointment with infectious disease last week for placement of PICC line. She is scheduled to see ID on 08/02/2024 for placement of PICC. I did discuss the surgical cultures, including bone cultures did demonstrate staph aureus. Discussed that she does currently have osteomyelitis of the fibula and distal tibia and thus PICC line placement and continued to receive IV antibiotics is essential to her healing. She does voice understanding of this and will strive to make the next appointment. Discussed suture removal in 2 weeks She will continue to follow with Dr. Salinas post venous ablation at the end of July. Patient is currently on immunosuppressant agents for autoimmune disease, continues follow with Rheumatology. Discussed signs and symptoms of infection. Discussed with her if she notices increasing redness about the ulcerative site that moves up the leg, purulent drainage from the ulcerative site, increasing foul odor from the ulcerative site, or if she develops fever greater than 101 degree, develops nausea, vomiting, chills, these are signs of a progressing infection and she should report to the ED for IV antibiotics. She voices understanding of this today. The following work up and care recommendations were made: Dressing: Betadine soaked Adaptic, 4 x 4 gauze, Kerlix, and 4 inch Paddy wrap rolled onto the foot Wash: Do not get wet Tissue growth optimization: None Offload: Remain nonweightbearing to the right lower extremity with assistance of surgical shoe and knee scooter Vascular: DP and PT pulses palpable with adequate capillary fill time to digits. Did undergo venous procedure 07/21/[address] Salinas. Edema: Patient does have chronic venous insufficiency with bilateral lower extremity edema. Infection: Positive bone culture Staph aureus. Referral placed to infectious disease for placement of PICC line. Will see ID 08/02/24. Pain: May take [id number] Tylenol for discomfort Host factors: Chronic venous insufficiency, autoimmune disease, pyoderma gangrenosum I answered all the patient's questions. To return to the wound healing center in 1 weeks or call sooner if the patient has any questions or concerns. Will return to the wound care center for continued postoperative care s/p I&D, removal of infected hardware right ankle, and bone biopsy tibia and fibula.
--- NOTE | 2024-07-29 12:38 | WC ---
PHOTO 07/28/24
--- NOTE | 2024-07-29 12:40 | WC ---
PHOTO 07/28/24 RIGHT LATERAL ANKLE
[2024-08-04 10:10] VITALS: BP 136/78; PULSE 96; RESP 18
[2024-08-11 11:31] VITALS: BP 134/77; PULSE 84; TEMP 36.9
--- NOTE | 2024-08-11 13:21 | PN.PCM_ITS ---
History of Present Illness Date of Service: 08/11/24 Chief Complaint: Surgical wound dehiscence right leg History of Wound: Patient is a 38-year-old female who subsequently developed a surgical wound dehiscence of her right lateral lower extremity. She previously underwent surgery for primary repair of split tear of the peroneus brevis tendon, primary repair of anterior tibiofibular ligament (AITFL), and syndesmotic reduction via tight rope of the right lower extremity on 04/24/2023. Following removal of sutures she developed surgical wound dehiscence secondary to continued lower extremity swelling via chronic venous insufficiency. She did undergo debridement in office 06/05/2023 and Deidre was applied at this time with Tubigrip compression. She has worn compression stockings to manage lower extremity swelling prior to surgical intervention. Patient is also noted to have autoimmune disease and is managed by rheumatology with medication and did resume all medications 2 weeks post operative per rheumatology. She was referred to the wound care center for continued wound healing. She has been applying Deidre and dry sterile dressings daily. She denies N/V/F/chills. Denies further complaints. Subjective Subjective This is a 39-year-old female who presents to the wound care center for continued follow-up of medial and lateral ankle ulceration. She did undergo debridement with removal of infected hardware of the right ankle on 07/21/2024. At that time bone biopsy was also taken of the tibia and fibula confirming infection. She also underwent vascular procedure with Dr. Salinas following removal of her hardware. She has continued nonweightbearing status as instructed with use of knee scooter. She has kept dressings clean, dry, and intact to the right leg. She did see infectious disease who continued oral antibiotic, doxycycline for 6 weeks. States pain in the right leg has continued to improve. Currently denies N/V/F/chills. Denies further complaints. Objective Data Objective Data Vital Signs: Vital Signs Temp Pulse Resp BP O2 Del Method 98.5 F 84 18 134/77 H Room Air 08/11/24 11:31 08/11/24 11:31 08/04/24 10:10 08/11/24 11:08/04/24 10:10 Oxygen Delivery Method Room Air Physical Exam Const alert, oriented x3 and no apparent distress General Appearance: cooperative HEENT normocephalic Eyes General Eye: normal appearance of both eyes Neck General: normal visual inspection Lymph Lymphatic: no lymphadenopathy noted and no lymphedema noted Resp normal respiratory effort Cardio regular rate and regular rhythm Extremity no calf tenderness Extremity Narrative: Right Lower Extremity: Vascular DP and PT pulses palpable bilateral. Capillary fill time less than 3 seconds to digits bilateral. Normal temperature gradient. There is hair growth present to lower extremity and digits. Dermatological: There is bilateral lower extremity edema secondary to chronic venous stasis with some hemosiderin deposition noted about the right lower extr emity. Sutures intact to medial and lateral ankle. No signs of infection. Musculoskeletal: Muscle strength 5 of 5 age-appropriate. No pain to palpation about the lateral leg of the right lower extremity. No pain to palpation calf. Skin no rashes or lesions noted and skin turgor normal Neuro moves all extremities Debridement Note Debridement Note No debridement was completed: No debridement was completed today Post-Debridement Measurements and Additional Note: Post-Debridement Measurements/Treatment - Nurse 1 - General Ulcer Assessment Start: 07/28/24 09:39 Freq: Status: Active Protocol: LAURIE Activity Type Activity Date Activity User E-sign Co-sign Detail Recorded Client Recorded Date Recorded By Document 07/28/24 09:41 DL [id number] 07/28/24 09:56 DL Document 08/04/24 10:10 KW [id number] 08/04/24 10:29 KW Document 08/11/24 11:31 BMF [id number] 08/11/24 11:35 BMF 07/28/24 08/04/24 08/11/24 09:41 10:10 11:31 - Today's Visit Information Type of service Follow-up Visit Nurse-only Follow-up Visit (Physician/RETAIL BUSINESS MANAGER Visit (Physician/RETAIL BUSINESS MANAGER ) ) Arrival Mode Ambulatory, Other Ambulatory, Walker Walker Arrival Mode (Other) knee roller knee walker Transfer Assistance None Patient Identification Verified (Name & Yes Yes Yes ) Patient Requires Transmission-Based No No Precautions Vital Signs Temperature (97.8 F-99.1 F) 110.4 F H 98.5 F Temperature Source Temporal Temporal Pulse Rate (60-100) 79 96 84 Pulse Location Monitor Monitor Monitor Respiratory Rate (12-18) 20 H 18 Respiratory rate source Observation Observation Oxygen Delivery Method Room Air Blood Pressure (90/60-120/80) 153/74 H 136/78 H 134/77 H Blood Pressure Mean (mm Hg) 100 97 96 Source Monitor Monitor Monitor Position Semi-Fowlers Sitting Blood Pressure Location Left Arm Left Arm History Since Last Visit- (Skip if this is Patient's initial visit) Have you changed medications since your No No No last visit? Any new allergies or adverse reactions No No No Had a fall/change in ADL's that may No No No increase risk of falls Signs or symptoms of abuse and/or No No No neglect since last visit Have you been in the hospital since your No No No last visit? Has dressing in place as prescribed Yes Yes Yes Has compression in place as prescribed Yes Yes Yes Has offloadiing in place as prescribed Yes Yes N/A Experienced any changes in pain level or No No No management Left Footwear Regular Shoe Regular Shoe Right Footwear No Footwear Surgical Shoe Surgical Shoe with pressure with pressure relief insole relief insole Pain Scale: 0-10 Numeric Is Patient Pain Free? Yes Yes Yes WC - Nurse 1 - General Ulcer Measurement Start: 07/28/24 09:39 Freq: Status: Active Protocol: Activity Type Activity Date Activity User E-sign Co-sign Detail Recorded Client Recorded Date Recorded By Document 07/28/24 09:41 DL [id number] 07/28/24 09:56 DL Document 08/11/24 11:31 BM [id number] 08/11/24 11:35 BMF 07/28/24 08/11/24 09:41 11:31 Wound Center Nurse 1 #2 RT MED ANKLE -Current Size (cm) - Length 0.1 0.1 -Current Size (cm) - Width 0.1 0.1 -Current Size (cm) - Depth 0.1 0.1 -Total Square Cm 0.01 0.01 -Photo Taken Yes -Exudate Amt Small -Wound Margin Distinct, Outline Attached -Granulation Amt None Present (0 %) -Necrosis Amt None Present (0 %) -Structure Exposed N/A -Texture (Meghan-wound Skin Appearance) Localized Edema Assessed, ,Scarring Scarring -Moisture (Meghan-wound Skin Appearance) No Abnormality Assessed,Dry/ Scaly -Color (Meghan-wound Skin Appearance) Erythema Assessed -Temperature (Meghan-wound Skin No Abnormality Appearance) (Pt Warm) -Ulcer Cleansing Soap and Water -Foul Odor after Cleansing No -Anesthetic Used 5% Lidocaine Gel -Wound Comment(s) Incision well sutures intact approximated, sutures intact #1 RT LAT ANKLE CLUSTER -Current Size (cm) - Length 0.1 0.1 -Current Size (cm) - Width 0.1 0.1 -Current Size (cm) - Depth 0.1 0.1 -Total Square Cm 0.01 0.01 -Photo Taken Yes -Exudate Amt Small -Wound Margin Distinct, Outline Attached -Granulation Amt None Present (0 %) -Necrosis Amt None Present (0 %) -Structure Exposed N/A -Texture (Meghan-wound Skin Appearance) Localized Edema Assessed, ,Scarring Scarring -Moisture (Meghan-wound Skin Appearance) No Abnormality Assessed,Dry/ Scaly -Color (Meghan-wound Skin Appearance) No Abnormality Assessed -Temperature (Meghan-wound Skin No Abnormality Appearance) (Pt Warm) -Tenderness on Palpation (Meghan-wound No Skin Appearance) -Ulcer Cleansing Soap and Water -Foul Odor after Cleansing No -Anesthetic Used 5% Lidocaine Gel -Wound Comment(s) Sutures intact sutures intact Right Calf (cm) 43 42.8 Right Ankle (cm) 28 27.5 WC - Nurse 2 - General Ulcer CM Notes Start: 07/28/24 09:39 Freq: Status: Active Protocol: Activity Type Activity Date Activity User E-sign Co-sign Detail Recorded Client Recorded Date Recorded By Document 07/28/24 10:23 [facility] [id number] 07/28/24 10:33 [facility] Document 08/11/24 11:43 [facility] [id number] 08/11/24 11:55 [facility] 07/28/24 08/11/24 10:23 11:43 Wound Center Nurse 2 #2 RT MED ANKLE -Time 10:24 11:49 -Post Debridement (cm) - Length 0.1 0.1 -Post Debridement (cm) - Width 0.1 0.1 -Post Debridement (cm) - Depth 0.1 0.1 -Total Square (Post) (cm) 0.01 0.01 -Area of Debridement (cm) - Length 0.1 0.1 -Area of Debridement (cm) - Width 0.1 0.1 -Total Square (Area) (cm) 0.01 0.01 -Tunneling No -Undermining/Tunneling No -Circular Undermining No -Wound/Ulcer Outcome Not Healed -Bleeding Controlled with NA Pressure -Wound Comment(s) sutures sutures removed #1 RT LAT ANKLE CLUSTER -Time 10:25 11:44 -Post Debridement (cm) - Length 0.1 0.1 -Post Debridement (cm) - Width 0.1 0.1 -Post Debridement (cm) - Depth 0.1 0.1 -Total Square (Post) (cm) 0.01 0.01 -Area of Debridement (cm) - Length 0.1 0.1 -Area of Debridement (cm) - Width 0.1 0.1 -Total Square (Area) (cm) 0.01 0.01 -Wound/Ulcer Outcome Not Healed -Bleeding Controlled with NA Pressure -Wound Comment(s) sutures sutures removed Pain Scale: 0-10 Numeric Is Patient Pain Free? Yes Yes WC - Nurse 3 - General Ulcer D/C NN Start: 07/28/24 09:39 Freq: Status: Active Protocol: Activity Type Activity Date Activity User E-sign Co-sign Detail Recorded Client Recorded Date Recorded By Document 07/28/24 10:53 DL [id number] 07/28/24 10:55 DL Document 08/04/24 10:10 KW [id number] 08/04/24 10:29 KW Document 08/11/24 12:15 KW [id number] 08/11/24 12:16 KW 07/28/24 08/04/24 08/11/24 10:53 10:10 12:15 Wound Care Center Nurse 3 #2 RT MED ANKLE -Ulcer Cleansing Rinsed/ Soap and Water Irrigated with Saline -Foul Odor after Cleansing No -Primary Dressing Applied NonAdherent NonAdherent Contact Layer Contact Layer -Other Dressing Betadine paint with betadine -Primary Dressing Covered/Secured with Dry Gauze & Dry Gauze & Roll Gauze, Roll Gauze, Secured with Secured with Tape Tape #1 RT LAT ANKLE CLUSTER -Ulcer Cleansing Rinsed/ Soap and Water Irrigated with Saline -Foul Odor after Cleansing No -Primary Dressing Applied NonAdherent Contact Layer -Other Dressing betadine betadine with adaptic -Primary Dressing Covered/Secured with Dry Gauze & Dry Gauze & Roll Gauze, Roll Gauze, Secured with Secured with Tape Tape Right -Compression Wrap Paddy Wrap Paddy Wrap Treatment Response Procedure Tolerated Well Vital Signs Pulse Rate (60-100) 96 Pulse Location Monitor Respiratory Rate (12-18) 18 Respiratory rate source Observation Oxygen Delivery Method Room Air Blood Pressure (90/60-120/80) 136/78 H Blood Pressure Mean (mm Hg) 97 Source Monitor Position Semi-Fowlers Blood Pressure Location Left Arm Pain Scale: 0-10 Numeric Is Patient Pain Free? Yes Yes Yes WC - Visit Discharge Discharge Condition Stable Stable Stable Ambulatory Status Ambulatory, Ambulatory Ambulatory Walker Transportation Private Auto Medication Reconcilliation completed & No No provided to patient/care provider Clinical Summary of Care Provided Yes Yes Notes: uses a knee roller Facility Type Home Health Orders Sent Yes #2 RT MED ANKLE -Other Dressing pain with betadine -Primary Dressing Covered/Secured with Dry Gauze #1 RT LAT ANKLE CLUSTER -Other Dressing paint with betadine -Primary Dressing Covered/Secured with Dry Gauze & Roll Gauze, Secured with Tape Right -Compression Wrap Paddy Wrap Assessment/Plan Assessment/Plan (1) Non-pressure chronic ulcer of right calf with fat layer exposed: CODE(S): L97.212 - Non-pressure chronic ulcer of right calf with fat layer exposed (2) Non-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: CODE(S): L97.312 - Non-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 DOS: 07/21/2024. POD #23 Does have history of PG, which does complicate wound healing. Dressings were removed and site was inspected with sutures intact at the medial and lateral ankle. There is improvement noted in localized erythema about her previous ulceration sites. No signs of infection about the sutures. Sutures removed today atraumatically Site was then dressed again with Betadine, 4 x 4 gauze, Kerlix, and 4 inch Paddy w rap rolled onto the foot. She may remove dressing in 48 hours and proceed to shower. She is not to submerge foot or soak foot. She is to remain nonweightbearing to the right lower extremity with the assistance of a knee scooter. May continue to wear the surgical shoe to the right foot. Will progress to protected weightbearing in the surgical shoe next week as she does have difficulty fitting into a CAM boot She is instructed to keep dressings clean, dry, and intact to the right foot for next 48 hours She is also to continue to elevate right lower extremity at times of rest for postoperative edema control. She did see infectious disease who opted for continued oral antibiotic, doxycycline 100 mg twice a day for next 6 weeks. I did discuss the surgical cultures, including bone cultures did demonstrate staph aureus. Discussed that she does currently have osteomyelitis of the fibula and distal tibia and continued antibiotics is essential to her healing. Will continue to follow infectious disease She will continue to follow with Dr. Salinas post venous ablation at the end of July. Patient is currently on immunosuppressant agents for autoimmune disease, continues follow with Rheumatology. Discussed signs and symptoms of infection. Discussed with her if she notices increasing redness about the ulcerative site that moves up the leg, purulent drainage from the ulcerative site, increasing foul odor from the ulcerative site, or if she develops fever greater than 101 degree, develops nausea, vomiting, chills, these are signs of a progressing infection and she should re port to the ED for IV antibiotics. She voices understanding of this today. The following work up and care recommendations were made: Dressing: Betadine, 4 x 4 gauze, Kerlix, and 4 inch Paddy wrap rolled onto the foot Wash: May remove dressing and wash with soap and water in 48 hours Tissue growth optimization: None Offload: Remain nonweightbearing to the right lower extremity with assistance of surgical shoe and knee scooter Vascular: DP and PT pulses palpable with adequate capillary fill time to digits. Did undergo venous procedure 07/21/[address] Salinas. Edema: Patient does have chronic venous insufficiency with bilateral lower extremity edema. Infection: Positive bone culture Staph aureus. Infectious disease following and patient on oral antibiotic doxycycline for 6 weeks. Pain: May take [id number] Tylenol for discomfort Host factors: Chronic venous insufficiency, autoimmune disease, pyoderma gangrenosum At this time prognosis is good and does appear to be healing well. Will continue to observe for signs of PG as she has had prior history with this. I answered all the patient's questions. To return to the wound healing center in 1 weeks or call sooner if the patient has any questions or concerns. Will return to the wound care center for continued postoperative care s/p I&D, removal of infected hardware right ankle, and bone biopsy tibia and fibula.
== END 2024-08-19 23:59 | disposition home or self-care (01) ==
LOC: WC 11:00
PROVIDERS: PCP Internal Medicine; Referring Provider Student in an Organized Health Care Education/Training Program; Visit Provider Student in an Organized Health Care Education/Training Program
DX: T81.31XA Disruption of external operation (surgical) wound, not elsewhere classified, initial encounter (principal); L97.212 Non-pressure chronic ulcer of right calf with fat layer exposed; L97.312 Non-pressure chronic ulcer of right 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; M86.8X7 Other osteomyelitis, ankle and foot; L88 Pyoderma gangrenosum; I87.2 Venous insufficiency (chronic) (peripheral); M79.3 Panniculitis, unspecified; Y83.9 Surgical procedure, unspecified as the cause of abnormal reaction of the patient, or of later complication, without mention of misadventure at the time of the procedure; Z79.01 Long term (current) use of anticoagulants; Z79.899 Other long term (current) drug therapy
CPT/HCPCS: 99212; 99213; G0463

== ENCOUNTER → 2024-08-19 | Outpatient (CLI) | payer MEDICARE, MEDICAID, SELFPAY ==
--- NOTE | 2024-08-19 13:53 | VDLE_ITS ---
Reason For Study Reason For Study: S/P ABLATION RIGHT LEFT GSV is occluded from junction to knee s/p vein CFV is compressible, spontaneous, phasic, competent, ablation. and demonstrates normal augmentation. CFV is compressible, spontaneous, phasic, competent and demonstrates normal augmentation. FV is compressible, spontaneous, phasic, competent and demonstrates normal augmentation. POP V is compressible, spontaneous, phasic, competent and demonstrates normal augmentation. T/P Trunk is compressible. PTV is compressible. RT PerV is compressible. Procedure This is a venous duplex using B-mode, color flow and spectral Doppler. Exam performed in department. VL/Venous Duplex US, Unilateral Interpretation Summary Deep veins of the right lower extremity are patent and compressible segmentally . There is no evidence of right lower extremity deep vein thrombosis. Right great saphenous vein occluded consistent with recent ablation Ordering Physician: Sybil Espinoza Referring Physician: Almaz Rosas M.D. Performed By: Freida Valenzuela RVT and Student
== END | disposition home or self-care (01) ==
LOC: CVS 13:51
PROVIDERS: PCP Internal Medicine; Referring Provider Physician Assistant; Visit Provider Physician Assistant
DX: I87.2 Venous insufficiency (chronic) (peripheral) (principal)
CPT/HCPCS: 93971

== ENCOUNTER 2024-09-01 08:30 | Outpatient (RCR) | payer MEDICARE, MEDICAID, SELFPAY ==
[2024-08-20 02:28] VITALS: BP 134/77; PULSE 84; RESP 18; TEMP 36.9
[2024-08-25 08:45] VITALS: BP 120/73; PULSE 87; RESP 18; TEMP 36.3
--- NOTE | 2024-08-25 09:06 | PN.PCM_ITS ---
History of Present Illness Date of Service: 08/25/24 Chief Complaint: Surgical wound dehiscence right leg History of Wound: Patient is a 38-year-old female who subsequently developed a surgical wound dehiscence of her right lateral lower extremity. She previously underwent surgery for primary repair of split tear of the peroneus brevis tendon, primary repair of anterior tibiofibular ligament (AITFL), and syndesmotic reduction via tight rope of the right lower extremity on 04/24/2023. Following removal of sutures she developed surgical wound dehiscence secondary to continued lower extremity swelling via chronic venous insufficiency. She did undergo debridement in office 06/05/2023 and Deidre was applied at this time with Tubigrip compression. She has worn compression stockings to manage lower extremity swelling prior to surgical intervention. Patient is also noted to have autoimmune disease and is managed by rheumatology with medication and did resume all medications 2 weeks post operative per rheumatology. She was referred to the wound care center for continued wound healing. She has been applying Deidre and dry sterile dressings daily. She denies N/V/F/chills. Denies further complaints. Subjective Subjective This is a 39-year-old female who presents to the wound care center for continued follow-up of medial and lateral ankle ulceration. She did undergo debridement with removal of infected hardware of the right ankle on 07/21/2024. At that time bone biopsy was also taken of the tibia and fibula confirming infection. She also underwent vascular procedure with Dr. Salinas following removal of her hardware. She has continued nonweightbearing status as instructed with use of knee scooter. She did see infectious disease who continued oral antibiotic, doxycycline for 6 weeks. States pain in the right leg has continued to improve and site is looking better. Currently denies N/V/F/chills. Denies further complaints. Objective Data Objective Data Vital Signs: Vital Signs Temp Pulse Resp BP O2 Del Method 97.4 F L 87 18 120/73 Room Air 08/25/24 08:45 08/25/24 08:45 08/25/24 08:45 08/25/24 08:45 08/25/24 08:45 Oxygen Delivery Method Room Air Physical Exam Const alert, oriented x3 and no apparent distress General Appearance: cooperative HEENT normocephalic Eyes General Eye: normal appearance of both eyes Neck General: normal visual inspection Lymph Lymphatic: no lymphadenopathy noted and no lymphedema noted Resp normal respiratory effort Cardio regular rate and regular rhythm Extremity no calf tenderness Extremity Narrative: Right Lower Extremity: Vascular DP and PT pulses palpable bilateral. Capillary fill time less than 3 seconds to digits bilateral. Normal temperature gradient. There is hair growth present to lower extremity and digits. Dermatological: There is bilateral lower extremity edema secondary to chronic venous stasis with some hemosiderin deposition noted about the right lower extremity. Cicatrix to medial and lateral ankle. There is a small area of superficial dehiscence to medial and lateral sites. No signs of infection. Musculoskeletal: Muscle strength 5 of 5 age-appropriate. No pain to palpation about the lateral leg of the right lower extremity. No pain to palpation calf. Skin no rashes or lesions noted and skin turgor normal Neuro moves all extremities Debridement Note Debridement Note Wound debrided: Medial and lateral right ankle Laterality: Right Wound Grade/Stage: Maciel stage I Type of Debridement: Excisional debridement Anesthesia Used: 5% Lidocaine Gel Depth: Down to and including healthy tissue and in the subcutaneous layer Percentage of wound debrided: 100 Instrument Used: #15 blade Tissue Removed: Fibrous, devitalized subcutaneous, biofilm, slough Severity: Fat Layer Exposed Amount of bleeding with debridement: Mild Bleeding Controlled with: Compression and gauze Patient tolerated procedure: Patient tolerated procedure well Post-Debridement Measurements and Additional Note: Post-Debridement Measurements/Treatment - Nurse 1 - General Ulcer Assessment Start: 08/25/24 08:45 Freq: Status: Active Protocol: [email or web address] Activity Type Activity Date Activity User E-sign Co-sign Detail Recorded Client Recorded Date Recorded By Document 08/25/24 08:45 [id number] 08/25/24 08:53 KW 08/25/24 08:45 - Today's Visit Information Type of service Follow-up Visit (Physician/JAILER/TRAINING OFFICER ) Arrival Mode Ambulatory, Other Arrival Mode (Other) KNEE ROLLER Patient Identification Verified (Name & Yes ) Vital Signs Temperature (97.8 F-99.1 F) 97.4 F L Temperature Source Temporal Pulse Rate (60-100) 87 Pulse Location Monitor Respiratory Rate (12-18) 18 Respiratory rate source Observation Oxygen Delivery Method Room Air Blood Pressure (90/60-120/80) 120/73 Blood Pressure Mean (mm Hg) 88 Source Monitor Position Semi-Fowlers Blood Pressure Location Left Arm History Since Last Visit- (Skip if this is Patient's initial visit) Have you changed medications since your No last visit? Any new allergies or adverse reactions No Had a fall/change in ADL's that may No increase risk of falls Signs or symptoms of abuse and/or No neglect since last visit Have you been in the hospital since your No last visit? Has dressing in place as prescribed Yes Has compression in place as prescribed Yes Has offloadiing in place as prescribed N/A Experienced any changes in pain level or No management Left Footwear Regular Shoe Right Footwear Regular Shoe Pain Scale: 0-10 Numeric Is Patient Pain Free? Yes WC - Nurse 1 - General Ulcer Measurement Start: 08/25/24 08:45 Freq: Status: Active Protocol: Activity Type Activity Date Activity User E-sign Co-sign Detail Recorded Client Recorded Date Recorded By Document 08/25/24 08:45 KW [id number] 08/25/24 08:53 KW 08/25/24 08:45 Wound Center Nurse 1 #2 RT MED ANKLE -Current Size (cm) - Length 0.1 -Current Size (cm) - Width 0.1 -Current Size (cm) - Depth 0 -Total Square Cm 0.01 -Date of Last Picture (Recall this 08/25/24 field) -Epithelialization Large 67-100% -Exudate Amt None Present -Necrosis Amt Large (67-100%) -Necrotic Tissue Type Eschar -Texture (Meghan-wound Skin Appearance) Assessed -Moisture (Meghan-wound Skin Appearance) Assessed -Color (Meghan-wound Skin Appearance) Assessed -Temperature (Meghan-wound Skin No Abnormality Appearance) (Pt Warm) -Tenderness on Palpation (Meghan-wound No Skin Appearance) -Ulcer Cleansing Rinsed/ Irrigated with Saline -Foul Odor after Cleansing No -Anesthetic Used 5% Lidocaine Gel -Wound Comment(s) SCABBED #1 RT LAT ANKLE CLUSTER -Current Size (cm) - Length 0.4 -Current Size (cm) - Width 0.2 -Current Size (cm) - Depth 0.1 -Total Square Cm 0.08 -Date of Last Picture (Recall this 08/25/24 field) -Epithelialization Large 67-100% -Exudate Amt Small -Exudate Type Serosanguineous -Wound Margin Distinct, Outline Attached -Granulation Amt Large (67-100%) -Granulation Quality Red -Texture (Meghan-wound Skin Appearance) Assessed -Moisture (Meghan-wound Skin Appearance) Assessed -Color (Meghan-wound Skin Appearance) Assessed -Temperature (Meghan-wound Skin No Abnormality Appearance) (Pt Warm) -Tenderness on Palpation (Meghan-wound No Skin Appearance) -Ulcer Cleansing Rinsed/ Irrigated with Saline -Foul Odor after Cleansing No -Anesthetic Used 5% Lidocaine Gel Assessment/Plan Assessment/Plan (1) Osteomyelitis of right ankle: CODE(S): M86.9 - Osteomyelitis, unspecified (2) Non-pressure chronic ulcer of right calf with fat layer exposed: CODE(S): L97.212 - Non-pressure chronic ulcer of right calf with fat layer exposed (3) Non-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: CODE(S): L97.312 - Non-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 DOS: 07/21/2024. POD #38 Does have history of PG, which does complicate wound healing. Dressings were removed and site was inspected with cicatrix at the medial and lateral ankle. There is small superficial area of dehiscence to both medial and lateral incision sites. No signs of infection. Medial site of the right lower extremity measures 0.1 cm x 0.1 cm x 0.1 cm and lateral site measures 0.1 cm x 0.1 cm x 0.1 cm. Site was dressed triple antibiotic and Band-Aid. She is not to submerge foot or soak foot. She may however continue to wash sites with soap and water. She is to remain nonweightbearing to the right lower extremity with the assistance of a knee scooter. May continue to wear the surgical shoe to the right foot. Will progress to protected weightbearing supportive shoe gear at next visit if all sites are healed She is also to continue to elevate right lower extremity at times of rest for postoperative edema control. She did see infectious disease who opted for continued oral antibiotic, doxycycline 100 mg twice a day for next 6 weeks. I did discuss the surgical cultures, including bone cultures did demonstrate staph aureus. Discussed that she does currently have osteomyelitis of the fibula and distal tibia and continued antibiotics is essential to her healing. Will continue to follow infectious disease She will continue to follow with Dr. Salinas post venous ablation. Patient is currently on immunosuppressant agents for autoimmune disease, continues follow with Rheumatology. Discussed signs and symptoms of infection. Discussed with her if she notices increasing redness about the ulcerative site that moves up the leg, purulent drainage from the ulcerative site, increasing foul odor from the ulcerative site, or if she develops fever greater than 101 degree, develops nausea, vomiting, chills, these are signs of a progressing infection and she should report to the ED for IV antibiotics. She voices understanding of this today. The following work up and care recommendations were made: Dressing: Triple antibiotic ointment and Band-Aid for next 5 days. Then will transition to Band-Aid until next week. Wash: Soap and water Tissue growth optimization: None Offload: Remain nonweightbearing to the right lower extremity with assistance of surgical shoe and knee scooter Vascular: DP and PT pulses palpable with adequate capillary fill time to digits. Did undergo venous procedure 07/21/[address] Salinas. Edema: Patient does have chronic venous insufficiency with bilateral lower extremity edema. Infection: Positive bone culture Staph aureus. Infectious disease following and patient on oral antibiotic doxycycline for 6 weeks. Pain: May take [id number] Tylenol for discomfort Host factors: Chronic venous insufficiency, autoimmune disease, pyoderma gangrenosum At this time prognosis is good and does appear to be healing well. Will continue to observe for signs of PG as she has had prior history with this. I answered all the patient's questions. To return to the wound healing center in 1 weeks or call sooner if the patient has any questions or concerns. Will return to the wound care center for continued postoperative care s/p I&D, removal of infected hardware right ankle, and bone biopsy tibia and fibula.
--- NOTE | 2024-08-26 09:53 | WC ---
PHOTO 08/25/24 RIGHT [facility] ANKLE
[2024-09-01 08:33] VITALS: BP 164/80; PULSE 74; RESP 16
--- NOTE | 2024-09-01 09:12 | PN.PCM_ITS ---
History of Present Illness Date of Service: 09/01/24 Chief Complaint: Surgical wound dehiscence right leg History of Wound: Patient is a 38-year-old female who subsequently developed a surgical wound dehiscence of her right lateral lower extremity. She previously underwent surgery for primary repair of split tear of the peroneus brevis tendon, primary repair of anterior tibiofibular ligament (AITFL), and syndesmotic reduction via tight rope of the right lower extremity on 04/24/2023. Following removal of sutures she developed surgical wound dehiscence secondary to continued lower extremity swelling via chronic venous insufficiency. She did undergo debridement in office 06/05/2023 and Arianna was applied at this time with Tubigrip compression. She has worn compression stockings to manage lower extremity swelling prior to surgical intervention. Patient is also noted to have autoimmune disease and is managed by rheumatology with medication and did resume all medications 2 weeks post operative per rheumatology. She was referred to the wound care center for continued wound healing. She has been applying Arianna and dry sterile dressings daily. She denies N/V/F/chills. Denies further complaints. Subjective Subjective This is a 39-year-old female who presents to the wound care center for continued follow-up of medial and lateral ankle ulceration. She did undergo debridement with removal of infected hardware of the right ankle on 07/21/2024. At that time bone biopsy was also taken of the tibia and fibula confirming infection. She also underwent vascular procedure with Dr. Salinas following removal of her hardware. Continues to follow with vascular postprocedure and reports no issues. She has continued nonweightbearing status as instructed with use of knee scooter. Following with infectious disease who continued oral antibiotic, doxycycline for 6 weeks. States pain in the right leg continues improvement and site is nearing healing status. Currently denies N/V/F/chills. Denies further complaints. Objective Data Objective Data Vital Signs: Vital Signs Temp Pulse Resp BP O2 Del Method 97.4 F L 74 16 164/80 H Room Air 08/25/24 08:45 09/01/24 08:33 09/01/24 08:33 09/01/24 08:33 09/01/24 08:33 Oxygen Delivery Method Room Air Physical Exam Const alert, oriented x3 and no apparent distress General Appearance: cooperative HEENT normocephalic Eyes General Eye: normal appearance of both eyes Neck General: normal visual inspection Lymph Lymphatic: no lymphadenopathy noted and no lymphedema noted Resp normal respiratory effort Cardio regular rate and regular rhythm Extremity no calf tenderness Extremity Narrative: Right Lower Extremity: Vascular DP and PT pulses palpable bilateral. Capillary fill time less than 3 seconds to digits bilateral. Normal temperature gradient. There is hair growth present to lower extremity and digits. Dermatological: There is bilateral lower extremity edema secondary to chronic venous stasis with some hemosiderin deposition noted about the right lower extremity. Cicatrix to medial and lateral ankle. There is a small area of superficial dehiscence to medial and lateral sites with some yellow fibrotic tissue present. No signs of infection. Musculoskeletal: Muscle strength 5 of 5 age-appropriate. No pain to palpation about the lateral leg of the right lower extremity. No pain to palpation calf. Skin no rashes or lesions noted and skin turgor normal Neuro moves all extremities Debridement Note Debridement Note Wound debrided: Medial and lateral right lower extremity Laterality: Right Wound Grade/Stage: Maciel stage I Type of Debridement: Excisional debridement Anesthesia Used: 5% Lidocaine Gel Depth: Down to and including healthy tissue and in the subcutaneous layer Percentage of wound debrided: 100 Instrument Used: #15 blade and - (1 mm curette) Tissue Removed: Fibrous, devitalized subcutaneous, biofilm, slough Severity: Fat Layer Exposed Amount of bleeding with debridement: Mild Bleeding Controlled with: Compression and gauze Patient tolerated procedure: Patient tolerated procedure well Post-Debridement Measurements and Additional Note: Post-Debridement Measurements/Treatment - Nurse 1 - General Ulcer Assessment Start: 08/25/24 08:45 Freq: Status: Active Protocol: [email or web address].[email or web address] Activity Type Activity Date Activity User E-sign Co-sign Detail Recorded Client Recorded Date Recorded By Document 08/25/24 08:45 KW [id number] 08/25/24 08:53 KW Document 09/01/24 08:33 KW [id number] 09/01/24 09:00 KW 08/25/24 09/01/24 08:45 08:33 - Today's Visit Information Type of service Follow-up Visit Follow-up Visit (Physician/IT RISK AND ASSURANCE MANAGER (Physician/IT RISK AND ASSURANCE MANAGER ) ) Arrival Mode Ambulatory, Ambulatory Other Arrival Mode (Other) KNEE ROLLER Patient Identification Verified (Name & Yes Yes ) Vital Signs Temperature (97.8 F-99.1 F) 97.4 F L Temperature Source Temporal Temporal Pulse Rate (60-100) 87 74 Pulse Location Monitor Monitor Respiratory Rate (12-18) 18 16 Respiratory rate source Observation Observation Oxygen Delivery Method Room Air Room Air Blood Pressure (90/60-120/80) 120/73 164/80 H Blood Pressure Mean (mm Hg) 88 108 Source Monitor Monitor Position Semi-Fowlers Semi-Fowlers Blood Pressure Location Left Arm Left Arm History Since Last Visit- (Skip if this is Patient's initial visit) Have you changed medications since your No No last visit? Any new allergies or adverse reactions No No Had a fall/change in ADL's that may No No increase risk of falls Signs or symptoms of abuse and/or No No neglect since last visit Have you been in the hospital since your No No last visit? Has dressing in place as prescribed Yes Yes Has compression in place as prescribed Yes Yes Has offloadiing in place as prescribed N/A N/A Experienced any changes in pain level or No No management Left Footwear Regular Shoe Regular Shoe Right Footwear Regular Shoe Regular Shoe Pain Scale: 0-10 Numeric Is Patient Pain Free? Yes Yes WC - Nurse 1 - General Ulcer Measurement Start: 08/25/24 08:45 Freq: Status: Active Protocol: Activity Type Activity Date Activity User E-sign Co-sign Detail Recorded Client Recorded Date Recorded By Document 08/25/24 08:45 KW [id number] 08/25/24 08:53 KW Document 09/01/24 08:33 KW [id number] 09/01/24 09:00 KW 08/25/24 09/01/24 08:45 08:33 Wound Center Nurse 1 #2 RT MED ANKLE -Current Size (cm) - Length 0.1 2 -Current Size (cm) - Width 0.1 0.2 -Current Size (cm) - Depth 0 0.1 -Total Square Cm 0.01 0.4 -Date of Last Picture (Recall this 08/25/24 09/01/24 field) -Epithelialization Large 67-100% -Exudate Amt None Present Small -Exudate Type Serosanguineous -Wound Margin Distinct, Outline Attached -Granulation Amt Small (1-33%) -Granulation Quality [place] -Necrosis Amt Large (67-100%) Large (67-100%) -Necrotic Tissue Type Eschar Adherent Slough -Texture (Meghan-wound Skin Appearance) Assessed Assessed -Moisture (Meghan-wound Skin Appearance) Assessed Assessed -Color (Meghan-wound Skin Appearance) Assessed Assessed, Ecchymosis, Erythema -Temperature (Meghan-wound Skin No Abnormality No Abnormality Appearance) (Pt Warm) (Pt Warm) -Tenderness on Palpation (Meghan-wound No No Skin Appearance) -Ulcer Cleansing Rinsed/ Rinsed/ Irrigated with Irrigated with Saline Saline -Foul Odor after Cleansing No No -Anesthetic Used 5% Lidocaine 5% Lidocaine Gel Gel -Wound Comment(s) SCABBED #1 RT LAT ANKLE CLUSTER -Current Size (cm) - Length 0.4 1 -Current Size (cm) - Width 0.2 0.3 -Current Size (cm) - Depth 0.1 0.1 -Total Square Cm 0.08 0.3 -Date of Last Picture (Recall this 08/25/24 09/01/24 field) -Epithelialization Large 67-100% -Exudate Amt Small Small -Exudate Type Serosanguineous Serosanguineous -Wound Margin Distinct, Distinct, Outline Outline Attached Attached -Granulation Amt Large (67-100%) Small (1-33%) -Granulation Quality Red [place] -Necrosis Amt Large (67-100%) -Necrotic Tissue Type Adherent Slough -Texture (Meghan-wound Skin Appearance) Assessed Assessed -Moisture (Meghan-wound Skin Appearance) Assessed Assessed -Color (Meghan-wound Skin Appearance) Assessed Assessed, Ecchymosis, Erythema -Temperature (Meghan-wound Skin No Abnormality No Abnormality Appearance) (Pt Warm) (Pt Warm) -Tenderness on Palpation (Meghan-wound No No Skin Appearance) -Ulcer Cleansing Rinsed/ Rinsed/ Irrigated with Irrigated with Saline Saline -Foul Odor after Cleansing No No -Anesthetic Used 5% Lidocaine 5% Lidocaine Gel Gel WC - Nurse 2 - General Ulcer CM Notes Start: 08/25/24 08:45 Freq: Status: Active Protocol: Activity Type Activity Date Activity User E-sign Co-sign Detail Recorded Client Recorded Date Recorded By Document 08/25/24 09:11 [facility] [id number] 08/25/24 09:16 BMF Document 09/01/24 08:45 BM [id number] 09/01/24 08:48 BMF 08/25/24 09/01/24 09:11 08:45 Wound Center Nurse 2 #2 RT MED ANKLE -Time 09:11 08:45 -Correct Patient Yes Yes -Correct Side, Site, Position Yes Yes -Correct Procedure Yes Yes -Procedure Performed Yes Yes -Type of Procedure Debridement Debridement -Clinical Debridement Subcutaneous Subcutaneous -Tissue Removed Subcutaneous Subcutaneous -Post Debridement (cm) - Length 0.1 0.1 -Post Debridement (cm) - Width 0.1 0.1 -Post Debridement (cm) - Depth 0.1 0.1 -Total Square (Post) (cm) 0.01 0.01 -Area of Debridement (cm) - Length 0.1 0.1 -Area of Debridement (cm) - Width 0.1 0.1 -Total Square (Area) (cm) 0.01 0.01 -Tunneling No No -Undermining/Tunneling No No -Circular Undermining No No -Wound/Ulcer Outcome Not Healed Not Healed -Ulcer Cleansing Rinsed/ Rinsed/ Irrigated with Irrigated with Saline Saline -Foul Odor after Cleansing No No -Bioengineered Tissue No No -Bleeding Controlled with Pressure NA -Treatment Response Procedure Procedure Tolerated Well Tolerated Well -Debridement - Subq, 1st 20sq cm Yes Yes #1 RT LAT ANKLE CLUSTER -Time 09:14 08:46 -Correct Patient Yes Yes -Correct Side, Site, Position Yes Yes -Correct Procedure Yes Yes -Procedure Performed Yes Yes -Type of Procedure Debridement Debridement -Clinical Debridement Subcutaneous Subcutaneous -Tissue Removed Subcutaneous Subcutaneous -Post Debridement (cm) - Length 0.1 0.1 -Post Debridement (cm) - Width 0.1 0.1 -Post Debridement (cm) - Depth 0.1 0.1 -Total Square (Post) (cm) 0.01 0.01 -Area of Debridement (cm) - Length 0.1 0.1 -Area of Debridement (cm) - Width 0.1 0.1 -Total Square (Area) (cm) 0.01 0.01 -Tunneling No No -Undermining/Tunneling No No -Circular Undermining No No -Wound/Ulcer Outcome Not Healed Not Healed -Ulcer Cleansing Rinsed/ Rinsed/ Irrigated with Irrigated with Saline Saline -Foul Odor after Cleansing No No -Bioengineered Tissue No No -Bleeding Controlled with Pressure Pressure -Treatment Response Procedure Procedure Tolerated Well Tolerated Well -Debridement - Subq, 1st 20sq cm No Yes Pain Scale: 0-10 Numeric Is Patient Pain Free? Yes Yes WC - Nurse 3 - General Ulcer D/C NN Start: 08/25/24 08:45 Freq: Status: Active Protocol: Activity Type Activity Date Activity User E-sign Co-sign Detail Recorded Client Recorded Date Recorded By Document 08/25/24 09:26 DL [id number] 08/25/24 09:27 DL Document 09/01/24 09:00 KW [id number] 09/01/24 09:02 KW 08/25/24 09/01/24 09:26 09:00 Wound Care Center Nurse 3 #2 RT MED ANKLE -Ulcer Cleansing Rinsed/ Irrigated with Saline -Foul Odor after Cleansing No -Primary Dressing Applied Promogran Arianna Matter -Other Dressing bacitracin/ bandaide Bandaid -Promogran Arianna Matter 1 #1 RT LAT ANKLE CLUSTER -Ulcer Cleansing Rinsed/ Irrigated with Saline -Foul Odor after Cleansing No -Other Dressing bacitracin/ arianna and bandaid bandaid BLE -Other pt own compression Treatment Response Procedure Tolerated Well Pain Scale: 0-10 Numeric Is Patient Pain Free? 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 DOS: 07/21/2024. POD #45 Does have history of PG, which does complicate wound healing. Dressings were removed and site was inspected with cicatrix at the medial and lateral ankle. There is small superficial area of dehiscence to both medial and lateral incision sites. No signs of infection. Pre-debridement: Medial 0.1 cm x 0.1 cm x 0.1 cm, lateral 0.1 cm x 0.1 cm x 0.1 cm. Site underwent debridement as noted in clinical panel above. Postdebridement measurements of medial site of the right lower extremity measures 0.1 cm x 0.1 cm x 0.1 cm and lateral site measures 0.1 cm x 0.1 cm x 0.1 cm. Site was dressed Arianna and Band-Aid. She will change daily. She is not to submerge foot or soak foot. She may however continue to wash sites with soap and water. She is to begin transition to protective weightbearing to the right lower extremity with surgical shoe to the right foot. She is also to continue to elevate right lower extremity at times of rest for postoperative edema control. She did see infectious disease who opted for continued oral antibiotic, doxycycline 100 mg twice a day for next 6 weeks. Has 4 weeks remaining. I did discuss the surgical cultures, including bone cultures did demonstrate staph aureus. Discussed that she does currently have osteomyelitis of the fibula and distal tibia and continued antibiotics is essential to her healing. Will continue to follow infectious disease She will continue to follow with Dr. Salinas post venous ablation. Patient is currently on immunosuppressant agents for autoimmune disease, continues follow with Rheumatology. Discussed signs and symptoms of infection. Discussed with her if she notices increasing redness about the ulcerative site that moves up the leg, purulent dr donahue from the ulcerative site, increasing foul odor from the ulcerative site, or if she develops fever greater than 101 degree, develops nausea, vomiting, chills, these are signs of a progressing infection and she should report to the ED for IV antibiotics. She voices understanding of this today. The following work up and care recommendations were made: Dressing: Arianna and Band-Aid. Will change daily. Wash: Soap and water Tissue growth optimization: Arianna Offload: Remain nonweightbearing to the right lower extremity with assistance of surgical shoe and knee scooter Vascular: DP and PT pulses palpable with adequate capillary fill time to digits. Did undergo venous procedure 07/21/[address] Salinas. Edema: Patient does have chronic venous insufficiency with bilateral lower extremity edema. Infection: Positive bone culture Staph aureus. Infectious disease following and patient on oral antibiotic doxycycline for 6 weeks. Pain: May take [id number] Tylenol for discomfort Host factors: Chronic venous insufficiency, autoimmune disease, pyoderma gangrenosum At this time prognosis is good and does appear to be healing well. Will continue to observe for signs of PG as she has had prior history with this. I answered all the patient's questions. To return to the wound healing center in 3 weeks or call sooner if the patient has any questions or concerns. Will return to the wound care center for continued postoperative care s/p I&D, removal of infected hardware right ankle, and bone biopsy tibia and fibula.
--- NOTE | 2024-09-02 11:56 | WC ---
PHOTO 09/01/24 RIGHT MED ANKLE
== END 2024-09-19 23:59 | disposition home or self-care (01) ==
LOC: WC 08:30
PROVIDERS: PCP Internal Medicine; Referring Provider Student in an Organized Health Care Education/Training Program; Visit Provider Student in an Organized Health Care Education/Training Program
DX: T81.31XA Disruption of external operation (surgical) wound, not elsewhere classified, initial encounter (principal); L97.312 Non-pressure chronic ulcer of right 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; M86.8X7 Other osteomyelitis, ankle and foot; L88 Pyoderma gangrenosum; M79.89 Other specified soft tissue disorders; M79.3 Panniculitis, unspecified; I87.2 Venous insufficiency (chronic) (peripheral); R60.0 Localized edema; Z79.01 Long term (current) use of anticoagulants; Z79.899 Other long term (current) drug therapy
CPT/HCPCS: 11042

== ENCOUNTER 2024-10-06 11:00 | Outpatient (RCR) | payer MEDICARE, MEDICAID, SELFPAY ==
[2024-09-20 00:55] VITALS: BP 164/80; PULSE 74; RESP 16; TEMP 36.3
[2024-09-22 11:17] VITALS: BP 151/86; PULSE 89; RESP 18; TEMP 36.5
--- NOTE | 2024-09-22 12:12 | PN.PCM_ITS ---
History of Present Illness Date of Service: 09/22/24 Chief Complaint: Surgical wound dehiscence right leg History of Wound: Patient is a 38-year-old female who subsequently developed a surgical wound dehiscence of her right lateral lower extremity. She previously underwent surgery for primary repair of split tear of the peroneus brevis tendon, primary repair of anterior tibiofibular ligament (AITFL), and syndesmotic reduction via tight rope of the right lower extremity on 04/24/2023. Following removal of sutures she developed surgical wound dehiscence secondary to continued lower extremity swelling via chronic venous insufficiency. She did undergo debridement in office 06/05/2023 and Deidre was applied at this time with Tubigrip compression. She has worn compression stockings to manage lower extremity swelling prior to surgical intervention. Patient is also noted to have autoimmune disease and is managed by rheumatology with medication and did resume all medications 2 weeks post operative per rheumatology. She was referred to the wound care center for continued wound healing. She has been applying Deidre and dry sterile dressings daily. She denies N/V/F/chills. Denies further complaints. Subjective Subjective This is a 39-year-old female who presents to the wound care center for continued follow-up of medial and lateral ankle ulceration. She did undergo debridement with removal of infected hardware of the right ankle on 07/21/2024. At that time bone biopsy was also taken of the tibia and fibula confirming infection. She also underwent vascular procedure with Dr. Salinas following removal of her hardware. Continues to follow with vascular postprocedure and reports no issues. She has transitioned to protective weightbearing status and is doing well. Following with infectious disease and has finished oral antibiotic, doxycycline for 6 week course. States pain in the right leg continues improvement and lateral wound has closed up with medial wound smaller. Currently denies N/V/F/chills. Denies further complaints. Objective Data Objective Data Vital Signs: Vital Signs Temp Pulse Resp BP 97.7 F L 89 18 151/86 H 09/22/24 11:17 09/22/24 11:17 09/22/24 11:17 09/22/24 11:17 Physical Exam Const alert, oriented x3 and no apparent distress General Appearance: cooperative HEENT normocephalic Eyes General Eye: normal appearance of both eyes Neck General: normal visual inspection Lymph Lymphatic: no lymphadenopathy noted and no lymphedema noted Resp normal respiratory effort Cardio regular rate and regular rhythm Extremity no calf tenderness Extremity Narrative: Right Lower Extremity: Vascular DP and PT pulses palpable bilateral. Capillary fill time less than 3 seconds to digits bilateral. Normal temperature gradient. There is hair growth present to lower extremity and digits. Neurologic: Epicritic sensation intact no focal deficits noted. Dermatological: There is bilateral lower extremity edema secondary to chronic venous stasis with some hemosiderin deposition noted about the right lower extremity. Cicatrix to medial and lateral ankle. There is a small area of superficial dehiscence at lateral sites with some yellow fibrotic tissue present. Medial site has epithelialized. No signs of infection. Musculoskeletal: Muscle strength 5 of 5 age-appropriate. No pain to palpation about the lateral leg of the right lower extremity. No pain to palpation calf. Skin no rashes or lesions noted and skin turgor normal Neuro moves all extremities Debridement Note Debridement Note Wound debrided: Right lower extremity x 2 Laterality: Right Wound Grade/Stage: Maciel stage III Type of Debridement: Excisional debridement Anesthesia Used: 5% Lidocaine Gel Depth: Down to and including healthy tissue and in the subcutaneous layer Percentage of wound debrided: 100 Instrument Used: 5mm curette and - (1 mm curette) Tissue Removed: Fibrous, devitalized subcutaneous, biofilm, slough Severity: Fat Layer Exposed Amount of bleeding with debridement: Mild Bleeding Controlled with: Compression and gauze Patient tolerated procedure: Patient tolerated procedure well Post-Debridement Measurements and Additional Note: Post-Debridement Measurements/Treatment NEELA - Nurse 1 - General Ulcer Assessment Start: 09/22/24 11:17 Freq: Status: Active Protocol: LAURIE Activity Type Activity Date Activity User E-sign Co-sign Detail Recorded Client Recorded Date Recorded By Document 09/22/24 11:17 DL [id number] 09/22/24 11:19 DL 09/22/24 11:17 - Today's Visit Information Type of service Follow-up Visit (Physician/CLINICAL DOCUMENTATION IMPROVEMENT SPECIALIST ) Arrival Mode Ambulatory, Walker Transfer Assistance None Patient Identification Verified (Name & Yes ) Patient Requires Transmission-Based No Precautions Vital Signs Temperature (97.8 F-99.1 F) 97.7 F L Temperature Source Temporal Pulse Rate (60-100) 89 Pulse Location Monitor Respiratory Rate (12-18) 18 Respiratory rate source Observation Blood Pressure (90/60-120/80) 151/86 H Blood Pressure Mean (mm Hg) 107 Source Monitor History Since Last Visit- (Skip if this is Patient's initial visit) Have you changed medications since your No last visit? Any new allergies or adverse reactions No Had a fall/change in ADL's that may No increase risk of falls Signs or symptoms of abuse and/or No neglect since last visit Have you been in the hospital since your No last visit? Has dressing in place as prescribed Yes Has compression in place as prescribed Yes Has offloadiing in place as prescribed Yes Experienced any changes in pain level or No management Pain Scale: 0-10 Numeric Is Patient Pain Free? Yes WC - Nurse 1 - General Ulcer Measurement Start: 09/22/24 11:17 Freq: Status: Active Protocol: Activity Type Activity Date Activity User E-sign Co-sign Detail Recorded Client Recorded Date Recorded By Document 09/22/24 11:17 DL [id number] 09/22/24 11:19 DL 09/22/24 11:17 Wound Center Nurse 1 #2 RT MED ANKLE -Current Size (cm) - Length 0.1 -Current Size (cm) - Width 0.1 -Current Size (cm) - Depth 0.1 -Total Square Cm 0.01 -Photo Taken Yes -Exudate Amt None Present -Wound Margin Distinct, Outline Attached -Granulation Amt Small (1-33%) -Granulation Quality [place] -Necrosis Amt Small (1-33%) -Necrotic Tissue Type Adherent Slough -Structure Exposed N/A -Texture (Meghan-wound Skin Appearance) Scarring -Moisture (Meghan-wound Skin Appearance) No Abnormality -Color (Meghan-wound Skin Appearance) No Abnormality -Temperature (Meghan-wound Skin No Abnormality Appearance) (Pt Warm) -Tenderness on Palpation (Meghan-wound No Skin Appearance) -Ulcer Cleansing Soap and Water -Foul Odor after Cleansing No -Anesthetic Used 5% Lidocaine Gel #1 RT LAT ANKLE CLUSTER -Current Size (cm) - Length 0.1 -Current Size (cm) - Width 0.1 -Current Size (cm) - Depth 0.1 -Total Square Cm 0.01 -Photo Taken Yes -Exudate Amt None Present -Wound Margin Distinct, Outline Attached -Granulation Amt Small (1-33%) -Granulation Quality [place] -Necrosis Amt Small (1-33%) -Necrotic Tissue Type Adherent Slough -Structure Exposed N/A -Texture (Meghan-wound Skin Appearance) Scarring -Moisture (Meghan-wound Skin Appearance) No Abnormality -Color (Meghan-wound Skin Appearance) No Abnormality -Temperature (Meghan-wound Skin No Abnormality Appearance) (Pt Warm) -Tenderness on Palpation (Meghan-wound No Skin Appearance) -Ulcer Cleansing Soap and Water -Foul Odor after Cleansing No -Anesthetic Used 5% Lidocaine Gel Right Calf (cm) 43.5 Right Ankle (cm) 27.4 WC - Nurse 2 - General Ulcer CM Notes Start: 09/22/24 11:17 Freq: Status: Active Protocol: Activity Type Activity Date Activity User E-sign Co-sign Detail Recorded Client Recorded Date Recorded By Document 09/22/24 11:43 [facility] [id number] 09/22/24 11:50 [facility] 09/22/24 11:43 Wound Center Nurse 2 #2 RT MED ANKLE -Time 11:44 -Correct Patient Yes -Correct Side, Site, Position Yes -Correct Procedure Yes -Procedure Performed Yes -Type of Procedure Debridement -Clinical Debridement Subcutaneous -Tissue Removed Subcutaneous -Post Debridement (cm) - Length 1 -Post Debridement (cm) - Width 0.9 -Post Debridement (cm) - Depth 0.3 -Total Square (Post) (cm) 0.9 -Area of Debridement (cm) - Length 1 -Area of Debridement (cm) - Width 0.9 -Total Square (Area) (cm) 0.9 -Tunneling No -Undermining/Tunneling No -Circular Undermining No -Wound/Ulcer Outcome Not Healed -Ulcer Cleansing Rinsed/ Irrigated with Saline -Foul Odor after Cleansing No -Bioengineered Tissue No -Bleeding Controlled with Pressure -Treatment Response Procedure Tolerated Well -Debridement - Subq, 1st 20sq cm Yes #1 RT LAT ANKLE CLUSTER -Time 11:43 -Procedure Performed No -Post Debridement (cm) - Length 0.1 -Post Debridement (cm) - Width 0.1 -Post Debridement (cm) - Depth 0.1 -Total Square (Post) (cm) 0.01 -Area of Debridement (cm) - Length 0.1 -Area of Debridement (cm) - Width 0.1 -Total Square (Area) (cm) 0.01 -Wound/Ulcer Outcome Not Healed -Bleeding Controlled with NA Pain Scale: 0-10 Numeric Is Patient Pain Free? Yes WC - Nurse 3 - General Ulcer D/C NN Start: 09/22/24 11:17 Freq: Status: Active Protocol: Activity Type Activity Date Activity User E-sign Co-sign Detail Recorded Client Recorded Date Recorded By Document 09/22/24 12:00 ROBERT [id number] 09/22/24 12:00 ROBERT 09/22/24 12:00 Wound Care Center Nurse 3 #2 RT MED ANKLE -Primary Dressing Applied Nugauze, Iodoform 1/4in -Primary Dressing Covered/Secured with Dry Gauze -Nugauze, Iodoform 1/4 1 #1 RT LAT ANKLE CLUSTER -Primary Dressing Covered/Secured with Dry Gauze,Dry Gauze & Roll Gauze,Secured with Tape Pain Scale: 0-10 Numeric Is Patient Pain Free? 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 DOS: 07/21/2024. POD #66 Does have history of PG, which does complicate wound healing. Dressings were removed and site was inspected with cicatrix at the medial and lateral ankle. There is small superficial area of dehiscence to both medial and lateral incision sites. No signs of infection. Pre-debridement: Medial 0.9 cm x 0.8 cm x 0.3 cm, lateral 0.1 cm x 0.1 cm x 0.1 cm. Site underwent debridement as noted in clinical panel above. Postdebridement measurements of medial site of the right lower extremity measures 1.0 cm x 0.9 cm x 0.3 cm and lateral site measures 0.1 cm x 0.1 cm x 0.1 cm. There is some improvement noted to her lateral side from previous visit. Medial site continues to heal, but this is currently slow. Currently she has no purulence or signs of infection and pain continues improving. Site was dressed with iodoform packing gauze and dry sterile dressing to the medial site. She will change daily. She is not to submerge foot or soak foot. She may however continue to wash sites with soap and water. She is to continue protective weightbearing to the right lower extremity with surgical shoe to the right foot. She is also to continue to elevate right lower extremity at times of rest for postoperative edema control. She did see infectious disease who opted for continued oral antibiotic, doxycycline 100 mg twice a day for next 6 weeks. She has finished the 6-week course of oral antibiotic. I have previously discussed the surgical cultures, including bone cultures did demonstrate staph aureus. Discussed that she does currently have osteomyelitis of the fibula and distal tibia, and has now finished her oral antibiotic course. Will continue to follow infectious disease She will continue to follow with Dr. Salinas post venous ablation. Patient is currently on immunosuppressant agents for autoimmune disease, continues follow with Rheumatology. Discussed signs and symptoms of infection. Discussed with her if she notices increasing redness about the ulcerative site that moves up the leg, purulent drainage from the ulcerative site, increasing foul odor from the ulcerative site, or if she develops fever greater than 101 degree, develops nausea, vomiting, chills, these are signs of a progressing infection and she should report to the ED for IV antibiotics. She voices understanding of this today. The following work up and care recommendations were made: Dressing: Iodoform packing gauze and dry sterile dressing to the medial site. Will change daily. Wash: Soap and water Tissue growth optimization: Deidre Offload: Remain nonweightbearing to the right lower extremity with assistance of surgical shoe and knee scooter Vascular: DP and PT pulses palpable with adequate capillary fill time to digits. Did undergo venous procedure 07/21/[address] Salinas. Edema: Patient does have chronic venous insufficiency with bilateral lower extremity edema. Infection: Positive bone culture Staph aureus. Infectious disease following and patient on oral antibiotic doxycycline for 6 weeks. Pain: May take [id number] Tylenol for discomfort Host factors: Chronic venous insufficiency, autoimmune disease, pyoderma gangrenosum At this time prognosis is good and does appear to be healing well. Will continue to observe for signs of PG as she has had prior history with this. I answered all the patient's questions. To return to the wound healing center in 2 weeks or call sooner if the patient has any questions or concerns. Will return to the wound care center for continued postoperative care s/p I&D, removal of infected hardware right ankle, and bone biopsy tibia and fibula.
--- NOTE | 2024-09-23 10:49 | WC ---
PHOTO 09/22/24 RIGHT LATERAL ANKLE
--- NOTE | 2024-09-23 10:51 | WC ---
PHOTO 09/22/24 RIGHT MEDIAL
[2024-10-06 11:37] VITALS: BP 148/98; PULSE 90; RESP 18; TEMP 36.7
--- NOTE | 2024-10-06 13:01 | PCM.WC.PN ---
History of Present Illness Date of Service: 10/06/24 Chief Complaint: Surgical wound dehiscence right leg History of Wound: Patient is a 38-year-old female who subsequently developed a surgical wound dehiscence of her right lateral lower extremity. She previously underwent surgery for primary repair of split tear of the peroneus brevis tendon, primary repair of anterior tibiofibular ligament (AITFL), and syndesmotic reduction via tight rope of the right lower extremity on 04/24/2023. Following removal of sutures she developed surgical wound dehiscence secondary to continued lower extremity swelling via chronic venous insufficiency. She did undergo debridement in office 06/05/2023 and Deidre was applied at this time with Tubigrip compression. She has worn compression stockings to manage lower extremity swelling prior to surgical intervention. Patient is also noted to have autoimmune disease and is managed by rheumatology with medication and did resume all medications 2 weeks post operative per rheumatology. She was referred to the wound care center for continued wound healing. She has been applying Deidre and dry sterile dressings daily. She denies N/V/F/chills. Denies further complaints. Subjective Subjective This is a 39-year-old female who presents to the wound care center for continued follow-up of medial and lateral ankle ulceration. She did undergo debridement with removal of infected hardware of the right ankle on 07/21/2024. At that time bone biopsy was also taken of the tibia and fibula confirming infection. She also underwent vascular procedure with Dr. Salinas following removal of her hardware. Continues to follow with vascular postprocedure and reports no issues. She has transitioned to protective weightbearing status and is doing well. Following with infectious disease and has finished oral antibiotic, doxycycline for 6 week course. She states she has been off of the antibiotic for 2 weeks and as of last week has started to feel worn down and tired with some discomfort in the right ankle. States pain in the right leg continues to improve about the wound sites lateral wound has closed up with medial wound improving. Denies drainage from wound sites. Currently denies N/V/F/chills. Denies further complaints. Objective Data Objective Data Vital Signs: Vital Signs Temp Pulse Resp BP 98.1 F 90 18 148/98 H 10/06/24 11:37 10/06/24 11:37 10/06/24 11:37 10/06/24 11:37 Physical Exam Const alert, oriented x3 and no apparent distress General Appearance: cooperative HEENT normocephalic Eyes General Eye: normal appearance of both eyes Neck General: normal visual inspection Lymph Lymphatic: no lymphadenopathy noted and no lymphedema noted Resp normal respiratory effort Cardio regular rate and regular rhythm Extremity no calf tenderness Extremity Narrative: Right Lower Extremity: Vascular DP and PT pulses palpable bilateral. Capillary fill time less than 3 seconds to digits bilateral. Normal temperature gradient. There is hair growth present to lower extremity and digits. Neurologic: Epicritic sensation intact no focal deficits noted. Dermatological: There is bilateral lower extremity edema secondary to chronic venous stasis with some hemosiderin deposition noted about the right lower extremity. Cicatrix to medial and lateral ankle. There is a small area of superficial dehiscence at lateral sites with some yellow fibrotic tissue present. Medial site has epithelialized. No signs of infection. Musculoskeletal: Muscle strength 5 of 5 age-appropriate. No pain to palpation about the lateral leg of the right lower extremity. No pain to palpation calf. Skin no rashes or lesions noted and skin turgor normal Neuro moves all extremities Debridement Note Debridement Note Wound debrided: Right medial ankle Laterality: Right Wound Grade/Stage: Maciel stage III Type of Debridement: Excisional debridement Anesthesia Used: 5% Lidocaine Gel Depth: Down to and including healthy tissue and in the subcutaneous layer Percentage of wound debrided: 100 Instrument Used: 3mm curette Tissue Removed: Fibrous, devitalized subcutaneous, biofilm, slough Severity: Fat Layer Exposed Amount of bleeding with debridement: Mild Bleeding Controlled with: Compression and gauze Patient tolerated procedure: Patient tolerated procedure well Post-Debridement Measurements and Additional Note: Post-Debridement Measurements/Treatment - Nurse 1 - General Ulcer Assessment Start: 09/22/24 11:17 Freq: Status: Active Protocol: LAURIE Activity Type Activity Date Activity User E-sign Co-sign Detail Recorded Client Recorded Date Recorded By Document 09/22/24 11:17 DL [id number] 09/22/24 11:19 DL Document 10/06/24 11:37 CP [id number] 10/06/24 11:40 CP 09/22/24 10/06/24 11:17 11:37 - Today's Visit Information Type of service Follow-up Visit Follow-up Visit (Physician/CENTRIFUGE SEPARATOR TENDER (Physician/CENTRIFUGE SEPARATOR TENDER ) ) Arrival Mode Ambulatory, Ambulatory,Cane Walker Transfer Assistance None Patient Identification Verified (Name & Yes Yes ) Patient Requires Transmission-Based No No Precautions Vital Signs Temperature (97.8 F-99.1 F) 97.7 F L 98.1 F Temperature Source Temporal Temporal Pulse Rate (60-100) 89 90 Pulse Location Monitor Monitor Respiratory Rate (12-18) 18 18 Respiratory rate source Observation Observation Blood Pressure (90/60-120/80) 151/86 H 148/98 H Blood Pressure Mean (mm Hg) 107 114 Source Monitor Monitor Position Sitting Blood Pressure Location Left Forearm History Since Last Visit- (Skip if this is Patient's initial visit) Have you changed medications since your No No last visit? Any new allergies or adverse reactions No No Had a fall/change in ADL's that may No No increase risk of falls Signs or symptoms of abuse and/or No No neglect since last visit Have you been in the hospital since your No No last visit? Has dressing in place as prescribed Yes Yes Has compression in place as prescribed Yes Yes Has offloadiing in place as prescribed Yes N/A Experienced any changes in pain level or No No management Pain Scale: 0-10 Numeric Is Patient Pain Free? Yes Yes WC - Nurse 1 - General Ulcer Measurement Start: 09/22/24 11:17 Freq: Status: Active Protocol: Activity Type Activity Date Activity User E-sign Co-sign Detail Recorded Client Recorded Date Recorded By Document 09/22/24 11:17 DL [id number] 09/22/24 11:19 DL Document 10/06/24 11:37 CP [id number] 10/06/24 11:40 CP 09/22/24 10/06/24 11:17 11:37 Wound Center Nurse 1 #2 RT MED ANKLE -Current Size (cm) - Length 0.1 1 -Current Size (cm) - Width 0.1 0.9 -Current Size (cm) - Depth 0.1 0.3 -Total Square Cm 0.01 0.9 -Photo Taken Yes -Exudate Amt None Present Small -Exudate Type Serosanguineous -Wound Margin Distinct, Flat & Intact Outline Attached -Granulation Amt Small (1-33%) Medium (34-66%) -Granulation Quality [place] Red -Slough/Fibrin Yes -Necrosis Amt Small (1-33%) Small (1-33%) -Necrotic Tissue Type Adherent Slough Adherent Slough -Structure Exposed N/A N/A -Texture (Meghan-wound Skin Appearance) Scarring No Abnormality -Moisture (Meghan-wound Skin Appearance) No Abnormality No Abnormality -Color (Meghan-wound Skin Appearance) No Abnormality No Abnormality -Temperature (Meghan-wound Skin No Abnormality No Abnormality Appearance) (Pt Warm) (Pt Warm) -Tenderness on Palpation (Meghan-wound No Yes Skin Appearance) -Ulcer Cleansing Soap and Water Rinsed/ Irrigated with Saline -Foul Odor after Cleansing No No -Anesthetic Used 5% Lidocaine 5% Lidocaine Gel Gel #1 RT LAT ANKLE CLUSTER -Current Size (cm) - Length 0.1 0.1 -Current Size (cm) - Width 0.1 0.1 -Current Size (cm) - Depth 0.1 0.1 -Total Square Cm 0.01 0.01 -Photo Taken Yes -Exudate Amt None Present -Wound Margin Distinct, Outline Attached -Granulation Amt Small (1-33%) -Granulation Quality [place] -Necrosis Amt Small (1-33%) -Necrotic Tissue Type Adherent Slough -Structure Exposed N/A N/A -Texture (Meghan-wound Skin Appearance) Scarring No Abnormality -Moisture (Meghan-wound Skin Appearance) No Abnormality No Abnormality -Color (Meghan-wound Skin Appearance) No Abnormality No Abnormality -Temperature (Meghan-wound Skin No Abnormality No Abnormality Appearance) (Pt Warm) (Pt Warm) -Tenderness on Palpation (Meghan-wound No No Skin Appearance) -Ulcer Cleansing Soap and Water Rinsed/ Irrigated with Saline -Foul Odor after Cleansing No No -Anesthetic Used 5% Lidocaine 5% Lidocaine Gel Gel -Wound Comment(s) scabbed Right Calf (cm) 43.5 42 Right Ankle (cm) 27.4 28 WC - Nurse 2 - General Ulcer CM Notes Start: 09/22/24 11:17 Freq: Status: Active Protocol: Activity Type Activity Date Activity User E-sign Co-sign Detail Recorded Client Recorded Date Recorded By Document 09/22/24 11:43 BM [id number] 09/22/24 11:50 BMF Document 10/06/24 12:03 BMF [id number] 10/06/24 12:12 BMF 09/22/24 10/06/24 11:43 12:03 Wound Center Nurse 2 #2 RT MED ANKLE -Time 11:44 12:03 -Correct Patient Yes Yes -Correct Side, Site, Position Yes Yes -Correct Procedure Yes Yes -Procedure Performed Yes Yes -Type of Procedure Debridement Debridement -Clinical Debridement Subcutaneous Subcutaneous -Tissue Removed Subcutaneous Subcutaneous -Post Debridement (cm) - Length 1 1.9 -Post Debridement (cm) - Width 0.9 0.9 -Post Debridement (cm) - Depth 0.3 0.6 -Total Square (Post) (cm) 0.9 1.71 -Area of Debridement (cm) - Length 1 1.9 -Area of Debridement (cm) - Width 0.9 0.9 -Total Square (Area) (cm) 0.9 1.71 -Tunneling No No -Undermining/Tunneling No No -Circular Undermining No No -Wound/Ulcer Outcome Not Healed Not Healed -Ulcer Cleansing Rinsed/ Rinsed/ Irrigated with Irrigated with Saline Saline -Foul Odor after Cleansing No No -Bioengineered Tissue No No -Bleeding Controlled with Pressure Pressure -Treatment Response Procedure Procedure Tolerated Well Tolerated Well -Debridement - Subq, 1st 20sq cm Yes Yes #1 RT LAT ANKLE CLUSTER -Time 11:43 12:03 -Procedure Performed No No -Post Debridement (cm) - Length 0.1 0.1 -Post Debridement (cm) - Width 0.1 0.1 -Post Debridement (cm) - Depth 0.1 0.1 -Total Square (Post) (cm) 0.01 0.01 -Area of Debridement (cm) - Length 0.1 0.1 -Area of Debridement (cm) - Width 0.1 0.1 -Total Square (Area) (cm) 0.01 0.01 -Tunneling No -Undermining/Tunneling No -Wound/Ulcer Outcome Not Healed Not Healed -Bleeding Controlled with NA NA Pain Scale: 0-10 Numeric Is Patient Pain Free? Yes Yes WC - Nurse 3 - General Ulcer D/C NN Start: 09/22/24 11:17 Freq: Status: Active Protocol: Activity Type Activity Date Activity User E-sign Co-sign Detail Recorded Client Recorded Date Recorded By Document 09/22/24 12:00 KW [id number] 09/22/24 12:00 KW Document 10/06/24 12:22 RB [id number] 10/06/24 12:24 RB Edit Result 10/06/24 12:22 RB (1) [id number] 10/06/24 12:26 RB (1) RLE - Tubular Bandage => Single Layer - Size of Tubigrip Used => Size D - Size D ($) => 1 09/22/24 10/06/24 12:00 12:22 Wound Care Center Nurse 3 #2 RT MED ANKLE -Primary Dressing Applied Nugauze, Nugauze, Iodoform 1/4in Iodoform 1/4in -Primary Dressing Covered/Secured with Dry Gauze Dry Gauze, Secured with Tape -Nugauze, Iodoform 1/4 1 1 #1 RT LAT ANKLE CLUSTER -Primary Dressing Covered/Secured with Dry Gauze,Dry Dry Gauze, Gauze & Roll Secured with Gauze,Secured Tape with Tape RLE -Tubular Bandage Single Layer -Size of Tubigrip Used Size D -Size D ($) 1 Treatment Response Procedure Tolerated Well Pain Scale: 0-10 Numeric Is Patient Pain Free? 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 DOS: 07/21/2024. POD #80 Does have history of PG, which does complicate wound healing. Dressings were removed and site was inspected with cicatrix at the medial and lateral ankle. There is small superficial area of dehiscence to both medial and lateral incision sites. No signs of infection. Pre-debridement: Medial 1.8 cm x 0.8 cm x 0.6 cm, lateral 0.1 cm x 0.1 cm x 0.1 cm. Site underwent debridement as noted in clinical panel above. Postdebridement measurements of medial site of the right lower extremity measures 1.9 cm x 0.9 cm x 0.6 cm and lateral site measures 0.1 cm x 0.1 cm x 0.1 cm. There is continued improvement noted to her lateral side from previous visit. Medial site demonstrates increase in size vs previous visit. Currently she has no purulence or signs of infection from either site and pain continues improving about wound sites. Site was dressed with iodoform packing gauze and dry sterile dressing to the medial site. She will change daily. She is not to submerge foot or soak foot. She may however continue to wash sites with soap and water. She is to continue protective weightbearing to the right lower extremity with surgical shoe to the right foot. She is also to continue to elevate right lower extremity at times of rest for postoperative edema control. She did see infectious disease who opted for continued oral antibiotic, doxycycline 100 mg twice a day for next 6 weeks. She has finished the 6-week course of oral antibiotic. I will have her return for another visit with Dr. Moya due to her generalized fatigue and soreness of the ankle following stopping of the oral antibiotic. I have previously discussed the surgical cultures, including bone cultures did demonstrate staph aureus. Discussed that she does currently have osteomyelitis of the fibula and distal tibia, and has now finished her oral antibiotic course. Will continue to follow infectious disease Ordered updated radiographs of the right ankle today to evaluate her healing status. She will continue to follow with Dr. Salinas post venous ablation. Patient is currently on immunosuppressant agents for autoimmune disease, continues follow with Rheumatology. Discussed signs and symptoms of infection. Discussed with her if she notices increasing redness about the ulcerative site that moves up the leg, purulent drainage from the ulcerative site, increasing foul odor from the ulcerative site, or if she develops fever greater than 101 degree, develops nausea, vomiting, chills, these are signs of a progressing infection and she should report to the ED for IV antibiotics. She voices understanding of this today. The following work up and care recommendations were made: Dressing: Iodoform packing gauze and dry sterile dressing to the medial site. Will change daily. Wash: Soap and water Tissue growth optimization: Deidre Offload: Remain nonweightbearing to the right lower extremity with assistance of surgical shoe and knee scooter Vascular: DP and PT pulses palpable with adequate capillary fill time to digits. Did undergo venous procedure 07/21/[address] Salinas. Edema: Patient does have chronic venous insufficiency with bilateral lower extremity edema. Infection: Positive bone culture Staph aureus. Infectious disease following and patient on oral antibiotic doxycycline for 6 weeks. Pain: May take [id number] Tylenol for discomfort Host factors: Chronic venous insufficiency, autoimmune disease, pyoderma gangrenosum At this time prognosis is good and does appear to be healing well. Will continue to observe for signs of PG as she has had prior history with this. I answered all the patient's questions. To return to the wound healing center in 2 weeks or call sooner if the patient has any questions or concerns. Will return to the wound care center for continued postoperative care s/p I&D, removal of infected hardware right ankle, and bone biopsy tibia and fibula.
--- NOTE | 2024-10-06 13:05 | RAD_ITS ---
PROCEDURE: ANKLE MIN 3 VIEWS 10/06/2024 REASON FOR EXAM: NON-PRESSURE CHRONIC ULCER OF RIGHT CALF WITH FAT LAYER EXPOSED TECHNIQUE: 3 views of the right ankle COMPARISON: Radiograph of the right ankle dated 07/11/2024. FINDINGS: Bones: Deformity of the distal fibula with old fracture deformity. Postop changes of the ankle joint. Joints: Normal alignment. Mortise appears intact. No effusion. Soft tissues: Soft tissue ulceration along the medial malleolus. Other: RAD/Ankle min 3 Views IMPRESSION: Soft tissue ulceration along the medial malleolus. No acute fracture. Old fra cture deformity of the fibula. Reading Location: [facility]
== END 2024-10-19 23:59 | disposition home or self-care (01) ==
LOC: WC 11:00
PROVIDERS: PCP Internal Medicine; Referring Provider Student in an Organized Health Care Education/Training Program; Visit Provider Student in an Organized Health Care Education/Training Program
DX: T81.31XA Disruption of external operation (surgical) wound, not elsewhere classified, initial encounter (principal); L97.312 Non-pressure chronic ulcer of right 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; M86.8X7 Other osteomyelitis, ankle and foot; L88 Pyoderma gangrenosum; I87.2 Venous insufficiency (chronic) (peripheral); M79.3 Panniculitis, unspecified; Y83.8 Other surgical procedures as the cause of abnormal reaction of the patient, or of later complication, without mention of misadventure at the time of the procedure; Z79.02 Long term (current) use of antithrombotics/antiplatelets; Z79.899 Other long term (current) drug therapy
CPT/HCPCS: 11042; 73610

== ENCOUNTER → 2024-10-25 | Outpatient (CLI) | payer MEDICARE, MEDICAID, SELFPAY ==
[2024-10-25 11:31] LABS: Hematocrit 43.7 % (37-47); Hemoglobin 13.6 g/dL (12.0-15.0); Mean Corp Hgb Conc 31.1 g/dL (32-36); Mean Corpuscular Hgb 25.1 pg (27.0-32.0); Mean Corpuscular Volume 80.6 fL (81-99); Mean Platelet Vol. 9.3 fl (6.2-12.0); Platelet Count 343 K/mm3 (150-450); RBC Distribution Width SD 46.9 fl (35.1-43.9); Red Blood Count 5.42 M/mm3 (4.2-5.4); White Blood Count 6.2 K/mm3 (4.4-11.0)
[2024-10-25 12:26] LABS: AST(SGOT) 21 U/L (<=31); Alanine Aminotransfer ALT/SGPT 17 U/L (<=34); Creatinine, Serum 0.66 mg/dL (0.70-1.20); EST Glomerular Filtration Rate 113 (>60)
== END | disposition home or self-care (01) ==
LOC: LAB 10:02
PROVIDERS: PCP Internal Medicine; Referring Provider Internal Medicine Rheumatology; Visit Provider Internal Medicine Rheumatology
DX: Z79.60 Long term (current) use of unspecified immunomodulators and immunosuppressants (principal)
CPT/HCPCS: 36415; 82565; 84450; 84460; 85027

== ENCOUNTER 2024-11-10 09:30 | Outpatient (RCR) | payer MEDICARE, MEDICAID, SELFPAY ==
[2024-10-20 00:40] VITALS: BP 148/98; PULSE 90; RESP 18; TEMP 36.7
[2024-10-20 11:07] VITALS: BP 149/92; PULSE 77; RESP 18; TEMP 36.5
--- NOTE | 2024-10-20 13:06 | PN.PCM_ITS ---
History of Present Illness Date of Service: 10/20/24 Chief Complaint: Surgical wound dehiscence right leg History of Wound: Patient is a 38-year-old female who subsequently developed a surgical wound dehiscence of her right lateral lower extremity. She previously underwent surgery for primary repair of split tear of the peroneus brevis tendon, primary repair of anterior tibiofibular ligament (AITFL), and syndesmotic reduction via tight rope of the right lower extremity on 04/24/2023. Following removal of sutures she developed surgical wound dehiscence secondary to continued lower extremity swelling via chronic venous insufficiency. She did undergo debridement in office 06/05/2023 and Deidre was applied at this time with Tubigrip compression. She has worn compression stockings to manage lower extremity swelling prior to surgical intervention. Patient is also noted to have autoimmune disease and is managed by rheumatology with medication and did resume all medications 2 weeks post operative per rheumatology. She was referred to the wound care center for continued wound healing. She has been applying Deidre and dry sterile dressings daily. She denies N/V/F/chills. Denies further complaints. Subjective Subjective This is a 39-year-old female who presents to the wound care center for continued follow-up of medial and lateral ankle ulceration. She did undergo debridement with removal of infected hardware of the right ankle on 07/21/2024. At that time bone biopsy was also taken of the tibia and fibula confirming infection. She also underwent vascular procedure with Dr. Salinas following removal of her hardware. Continues to follow with vascular postprocedure and reports no issues. She has continued protective weightbearing status and is doing well. Following with infectious disease and has finished oral antibiotic, doxycycline for 6 week course. She continues to change dressing daily to both wound sites and states the lateral side appears closed. Denies drainage from wound sites. Currently denies N/V/F/chills. Denies further complaints. Objective Data Objective Data Vital Signs: Vital Signs Temp Pulse Resp BP 97.7 F L 77 18 149/92 H 10/20/24 11:07 10/20/24 11:07 10/20/24 11:10/20/24 11:07 Physical Exam Const alert, oriented x3 and no apparent distress General Appearance: cooperative HEENT normocephalic Eyes General Eye: normal appearance of both eyes Neck General: normal visual inspection Lymph Lymphatic: no lymphadenopathy noted and no lymphedema noted Resp normal respiratory effort Cardio regular rate and regular rhythm Extremity no calf tenderness Skin no rashes or lesions noted Neuro moves all extremities Debridement Note Debridement Note Wound debrided: Right medial ankle Laterality: Right Wound Grade/Stage: Maciel stage III Type of Debridement: Excisional debridement Anesthesia Used: 5% Lidocaine Gel Depth: Down to and including healthy tissue and in the subcutaneous layer Percentage of wound debrided: 100 Instrument Used: - (1 mm curette) Tissue Removed: Fibrous, devitalized subcutaneous, biofilm, slough Severity: Fat Layer Exposed Amount of bleeding with debridement: Mild Bleeding Controlled with: Compression and gauze Patient tolerated procedure: Patient tolerated procedure well Post-Debridement Measurements and Additional Note: Post-Debridement Measurements/Treatment - Nurse 1 - General Ulcer Assessment Start: 10/20/24 11:07 Freq: Status: Active Protocol: [email or web address].[email or web address] Activity Type Activity Date Activity User E-sign Co-sign Detail Recorded Client Recorded Date Recorded By Document 10/20/24 11:07 JACK [id number] 10/20/24 11:15 DL 10/20/24 11:07 WC - Today's Visit Information Type of service Follow-up Visit (Physician/[employer]ST[employer]ER ) Arrival Mode Ambulatory, Stretcher Transfer Assistance None Patient Identification Verified (Name & Yes ) Patient Requires Transmission-Based No Precautions Vital Signs Temperature (97.8 F-99.1 F) 97.7 F L Temperature Source Temporal Pulse Rate (60-100) 77 Pulse Location Monitor Respiratory Rate (12-18) 18 Respiratory rate source Observation Blood Pressure (90/60-120/80) 149/92 H Blood Pressure Mean (mm Hg) 111 Source Monitor History Since Last Visit- (Skip if this is Patient's initial visit) Have you changed medications since your No last visit? Any new allergies or adverse reactions No Had a fall/change in ADL's that may No increase risk of falls Signs or symptoms of abuse and/or No neglect since last visit Have you been in the hospital since your Yes last visit? Has dressing in place as prescribed Yes Has compression in place as prescribed Yes Has offloadiing in place as prescribed Yes Experienced any changes in pain level or No management Right Footwear Surgical Shoe with pressure relief insole Pain Scale: 0-10 Numeric Is Patient Pain Free? Yes - Nurse 1 - General Ulcer Measurement Start: 10/20/24 11:07 Freq: Status: Active Protocol: Activity Type Activity Date Activity User E-sign Co-sign Detail Recorded Client Recorded Date Recorded By Document 10/20/24 11:07 JACK [id number] 10/20/24 11:15 DL 10/20/24 11:07 Wound Center Nurse 1 #1 RT LAT ANKLE CLUSTER -Current Size (cm) - Length 0.1 -Current Size (cm) - Width 0.1 -Current Size (cm) - Depth 0.1 -Total Square Cm 0.01 -Photo Taken Yes -Exudate Amt None Present -Wound Margin Flat & Intact -Granulation Amt Small (1-33%) -Granulation Quality Pale,[place] -Necrosis Amt None Present (0 %) -Structure Exposed N/A -Texture (Meghan-wound Skin Appearance) Localized Edema ,Scarring -Moisture (Meghan-wound Skin Appearance) Dry/Scaly -Color (Meghan-wound Skin Appearance) No Abnormality -Temperature (Meghan-wound Skin No Abnormality Appearance) (Pt Warm) -Ulcer Cleansing Rinsed/ Irrigated with Saline -Foul Odor after Cleansing No #2 RT MED ANKLE -Current Size (cm) - Length 1.8 -Current Size (cm) - Width 0.2 -Current Size (cm) - Depth 0.2 -Total Square Cm 0.36 -Photo Taken Yes -Exudate Amt Small -Exudate Type Serosanguineous -Wound Margin Distinct, Outline Attached -Granulation Amt Small (1-33%) -Granulation Quality [place] -Necrosis Amt Small (1-33%) -Necrotic Tissue Type Adherent Slough -Structure Exposed N/A -Texture (Meghan-wound Skin Appearance) Localized Edema ,Scarring -Moisture (Meghan-wound Skin Appearance) Dry/Scaly -Color (Meghan-wound Skin Appearance) No Abnormality -Temperature (Meghan-wound Skin No Abnormality Appearance) (Pt Warm) -Tenderness on Palpation (Meghan-wound No Skin Appearance) -Ulcer Cleansing Rinsed/ Irrigated with Saline -Foul Odor after Cleansing No -Anesthetic Used 5% Lidocaine Gel Right Calf (cm) 44 Right Ankle (cm) 27.3 WC - Nurse 2 - General Ulcer CM Notes Start: 10/20/24 11:07 Freq: Status: Active Protocol: Activity Type Activity Date Activity User E-sign Co-sign Detail Recorded Client Recorded Date Recorded By Document 10/20/24 11:29 [facility] [id number] 10/20/24 11:34 [facility] Document 10/20/24 11:38 [facility] [id number] 10/20/24 11:40 BM 10/20/24 10/20/24 11:29 11:38 Wound Center Nurse 2 #1 RT LAT ANKLE CLUSTER -Time 11:29 -Procedure Performed No -Post Debridement (cm) - Length 0 -Post Debridement (cm) - Width 0 -Post Debridement (cm) - Depth 0 -Total Square (Post) (cm) 0 -Area of Debridement (cm) - Length 0 -Area of Debridement (cm) - Width 0 -Total Square (Area) (cm) 0 -Wound/Ulcer Outcome Healed- Epithelialized -Bleeding Controlled with NA #2 RT MED ANKLE -Time 11:30 11:38 -Correct Patient Yes Yes -Correct Side, Site, Position Yes Yes -Correct Procedure Yes Yes -Procedure Performed Yes Yes -Type of Procedure Debridement Debridement -Clinical Debridement Subcutaneous Subcutaneous -Tissue Removed Subcutaneous Subcutaneous -Post Debridement (cm) - Length 0.4 0.4 -Post Debridement (cm) - Width 0.3 0.3 -Post Debridement (cm) - Depth 0.1 0.1 -Total Square (Post) (cm) 0.12 0.12 -Area of Debridement (cm) - Length 0.4 0.4 -Area of Debridement (cm) - Width 0.3 0.3 -Total Square (Area) (cm) 0.12 0.12 -Tunneling No No -Undermining/Tunneling No No -Circular Undermining No No -Wound/Ulcer Outcome Not Healed Not Healed -Ulcer Cleansing Rinsed/ Rinsed/ Irrigated with Irrigated with Saline Saline -Foul Odor after Cleansing No No -Bioengineered Tissue No No -Bleeding Controlled with Pressure Pressure -Treatment Response Procedure Tolerated Well -Type of Offloading Total Contact Cast (TCC) - Right ($) -Debridement - Subq, 1st 20sq cm Yes Yes Pain Scale: 0-10 Numeric Is Patient Pain Free? Yes Yes WC - Nurse 3 - General Ulcer D/C NN Start: 10/20/24 11:07 Freq: Status: Active Protocol: Activity Type Activity Date Activity User E-sign Co-sign Detail Recorded Client Recorded Date Recorded By Document 10/20/24 11:40 DL [id number] 10/20/24 11:42 DL 10/20/24 11:40 Wound Care Center Nurse 3 #2 RT MED ANKLE -Ulcer Cleansing Rinsed/ Irrigated with Saline -Foul Odor after Cleansing No -Primary Dressing Covered/Secured with Dry Gauze & Roll Gauze, Secured with Tape -Wound Comment(s) Pt to resume 1/ 4 iodoform packing to R Med Ankle at home. RLE -Tubular Bandage Single Layer -Size of Tubigrip Used Size F -Size F ($) 1 Pain Scale: 0-10 Numeric Is Patient Pain Free? Yes WC - Visit Discharge Discharge Condition Stable Ambulatory Status Ambulatory,Cane Transportation Trans Assessment/Plan Assessment/Plan (1) Non-pressure chronic ulcer of right calf with fat layer exposed: CODE(S): L97.212 - Non-pressure chronic ulcer of right calf with fat layer exposed (2) Non-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: CODE(S): L97.312 - Non-pressure chronic ulcer of right ankle with fat l adi exposed (3) Pyoderma gangrenosum: CODE(S): L88 - Pyoderma gangrenosum (4) Lipodermatosclerosis of right lower extremity: CODE(S): M79.3 - Panniculitis, unspecified (5) Venous insufficiency (chronic) (peripheral): CODE(S): I87.2 - Venous insufficiency (chronic) (peripheral) (6) Osteomyelitis of right ankle: CODE(S): M86.9 - Osteomyelitis, unspecified PLAN: Plan Patient seen and evaluated She is s/p I&D, removal of infected hardware right ankle, and bone biopsy tibia and fibula. DOS: 07/21/2024. POD #94 She is 3 months out from surgery. Does have history of PG, which does complicate wound healing. Dressings were removed and site was inspected with cicatrix at the medial and lateral ankle. There is small superficial area of dehiscence to both medial and lateral incision sites. No signs of infection. Pre-debridement: Medial 0.3 cm x 0.2 cm x 0.1 cm, lateral healed Site underwent debridement as noted in clinical panel above. Postdebridement measurements of medial site of the right lower extremity measures 0.4 cm x 0.3 cm x 0.1 cm and lateral site is healed. There is continued improvement noted to her lateral and medial side from previous visit. Currently she has no purulence or signs of infection from either site and pain continues improving about wound sites. Site was dressed with iodoform packing gauze and dry sterile dressing to the medial site. She will change daily. She is not to submerge foot or soak foot. She may however continue to wash sites with soap and water. She is to continue protective weightbearing to the right lower extremity with surgical shoe to the right foot. She is also to continue to elevate right lower extremity at times of rest for postoperative edema control. She did see infectious disease who opted for continued oral antibiotic, doxycycline 100 mg twice a day for next 6 weeks. She has finished the 6-week co urse of oral antibiotic. I will have her return for another visit with Dr. Moya due to her generalized fatigue and soreness of the ankle following stopping of the oral antibiotic. I have previously discussed the surgical cultures, including bone cultures did demonstrate staph aureus. Discussed that she does currently have osteomyelitis of the fibula and distal tibia, and has now finished her oral antibiotic course. Will continue to follow infectious disease Radiographs of the right lower extremity from 10/13/2024 demonstrate healing and ossification of bone tunnel in the distal fibula at prior sites of osteomyelitis. She will continue to follow with Dr. Salinas post venous ablation. Patient is currently on immunosuppressant agents for autoimmune disease, continues follow with Rheumatology. Discussed signs and symptoms of infection. Discussed with her if she notices increasing redness about the ulcerative site that moves up the leg, purulent drainage from the ulcerative site, increasing foul odor from the ulcerative site, or if she develops fever greater than 101 degree, develops nausea, vomiting, chills, these are signs of a progressing infection and she should report to the ED for IV antibiotics. She voices understanding of this today. The following work up and care recommendations were made: Dressing: Iodoform packing gauze and dry sterile dressing to the medial site. Will change daily. Wash: Soap and water Tissue growth optimization: Deidre Offload: Remain nonweightbearing to the right lower extremity with assistance of surgical shoe and knee scooter Vascular: DP and PT pulses palpable with adequate capillary fill time to digits. Did undergo venous procedure 07/21/[address] Salinas. Edema: Patient does have chronic venous insufficiency with bilateral lower extremity edema. Infection: Positive bone culture Staph aureus. Infectious disease following and patient on oral antibiotic doxycycline for 6 weeks. Pain: May take [id number] Tylenol for discomfort Host factors: Chronic venous insufficiency, autoimmune disease, pyoderma gangrenosum At this time prognosis is good and does appear to be healing well. Will continue to observe for signs of PG as she has had prior history with this. I answered all the patient's questions. To return to the wound healing center in 3 weeks or call sooner if the patient has any questions or concerns. Will return to the wound care center for continued postoperative care s/p I&D, removal of infected hardware right ankle, and bone biopsy tibia and fibula.
--- NOTE | 2024-10-21 12:14 | WC ---
PHOTO 10/20/24 RIGHT LATERAL ANKLE
--- NOTE | 2024-11-10 09:40 | PCM.WC.PN ---
History of Present Illness Date of Service: 11/10/24 Chief Complaint: Surgical wound dehiscence right leg History of Wound: Patient is a 38-year-old female who subsequently developed a surgical wound dehiscence of her right lateral lower extremity. She previously underwent surgery for primary repair of split tear of the peroneus brevis tendon, primary repair of anterior tibiofibular ligament (AITFL), and syndesmotic reduction via tight rope of the right lower extremity on 04/24/2023. Following removal of sutures she developed surgical wound dehiscence secondary to continued lower extremity swelling via chronic venous insufficiency. She did undergo debridement in office 06/05/2023 and Deidre was applied at this time with Tubigrip compression. She has worn compression stockings to manage lower extremity swelling prior to surgical intervention. Patient is also noted to have autoimmune disease and is managed by rheumatology with medication and did resume all medications 2 weeks post operative per rheumatology. She was referred to the wound care center for continued wound healing. She has been applying Deidre and dry sterile dressings daily. She denies N/V/F/chills. Denies further complaints. Subjective Subjective This is a 39-year-old female who presents to the wound care center for continued follow-up of medial and lateral ankle ulceration. She did undergo debridement with removal of infected hardware of the right ankle on 07/21/2024. At that time bone biopsy was also taken of the tibia and fibula confirming infection. She also underwent vascular procedure with Dr. Salinas following removal of her hardware. Continues to follow with vascular postprocedure and reports no issues. She has continued protective weightbearing status and is doing well. Following with infectious disease who did extend oral antibiotic for 4 weeks. She continues to change dressing daily medial leg wound site. Denies drainage from wound site. Currently denies N/V/F/chills. Denies further complaints. Objective Data Objective Data Vital Signs: Vital Signs Temp Pulse Resp BP 97.7 F L 77 18 149/92 H 10/20/24 11:07 10/20/24 11:07 10/20/24 11:10/20/24 11:07 Physical Exam Const alert, oriented x3 and no apparent distress General Appearance: cooperative HEENT normocephalic Eyes General Eye: normal appearance of both eyes Neck General: normal visual inspection Lymph Lymphatic: no lymphadenopathy noted and no lymphedema noted Resp normal respiratory effort Cardio regular rate and regular rhythm Extremity no calf tenderness Extremity Narrative: Right Lower Extremity: Vascular DP and PT pulses palpable bilateral. Capillary fill time less than 3 seconds to digits bilateral. Normal temperature gradient. There is hair growth present to lower extremity and digits. Neurologic: Epicritic sensation intact no focal deficits noted. Dermatological: There is bilateral lower extremity edema secondary to chronic venous stasis with some hemosiderin deposition noted about the right lower extremity. Cicatrix to medial and lateral ankle. There is a small area of superficial dehiscence at Medial site. Lateral site has epithelialized. No signs of infection. Musculoskeletal: Muscle strength 5 of 5 age-appropriate. No pain to palpation about the lateral leg of the right lower extremity. No pain to palpation calf. Skin no rashes or lesions noted Neuro moves all extremities Debridement Note Debridement Note No debridement was completed: No debridement was completed today Post-Debridement Measurements and Additional Note: Post-Debridement Measurements/Treatment NEELA - Nurse 1 - General Ulcer Assessment Start: 10/20/24 11:07 Freq: Status: Active Protocol: LAURIE Activity Type Activity Date Activity User E-sign Co-sign Detail Recorded Client Recorded Date Recorded By Document 10/20/24 11:07 DL [id number] 10/20/24 11:15 DL 10/20/24 11:07 - Today's Visit Information Type of service Follow-up Visit (Physician/LOAN UNDERWRITER ) Arrival Mode Ambulatory, Stretcher Transfer Assistance None Patient Identification Verified (Name & Yes ) Patient Requires Transmission-Based No Precautions Vital Signs Temperature (97.8 F-99.1 F) 97.7 F L Temperature Source Temporal Pulse Rate (60-100) 77 Pulse Location Monitor Respiratory Rate (12-18) 18 Respiratory rate source Observation Blood Pressure (90/60-120/80) 149/92 H Blood Pressure Mean (mm Hg) 111 Source Monitor History Since Last Visit- (Skip if this is Patient's initial visit) Have you changed medications since your No last visit? Any new allergies or adverse reactions No Had a fall/change in ADL's that may No increase risk of falls Signs or symptoms of abuse and/or No neglect since last visit Have you been in the hospital since your Yes last visit? Has dressing in place as prescribed Yes Has compression in place as prescribed Yes Has offloadiing in place as prescribed Yes Experienced any changes in pain level or No management Right Footwear Surgical Shoe with pressure relief insole Pain Scale: 0-10 Numeric Is Patient Pain Free? Yes NEELA - Nurse 1 - General Ulcer Measurement Start: 10/20/24 11:07 Freq: Status: Active Protocol: Activity Type Activity Date Activity User E-sign Co-sign Detail Recorded Client Recorded Date Recorded By Document 10/20/24 11:07 DL [id number] 10/20/24 11:15 DL 10/20/24 11:07 Wound Center Nurse 1 #1 RT LAT ANKLE CLUSTER -Current Size (cm) - Length 0.1 -Current Size (cm) - Width 0.1 -Current Size (cm) - Depth 0.1 -Total Square Cm 0.01 -Photo Taken Yes -Exudate Amt None Present -Wound Margin Flat & Intact -Granulation Amt Small (1-33%) -Granulation Quality Pale,[employer] -Necrosis Amt None Present (0 %) -Structure Exposed N/A -Texture (Meghan-wound Skin Appearance) Localized Edema ,Scarring -Moisture (Meghan-wound Skin Appearance) Dry/Scaly -Color (Meghan-wound Skin Appearance) No Abnormality -Temperature (Meghan-wound Skin No Abnormality Appearance) (Pt Warm) -Ulcer Cleansing Rinsed/ Irrigated with Saline -Foul Odor after Cleansing No #2 RT MED ANKLE -Current Size (cm) - Length 1.8 -Current Size (cm) - Width 0.2 -Current Size (cm) - Depth 0.2 -Total Square Cm 0.36 -Photo Taken Yes -Exudate Amt Small -Exudate Type Serosanguineous -Wound Margin Distinct, Outline Attached -Granulation Amt Small (1-33%) -Granulation Quality [employer] -Necrosis Amt Small (1-33%) -Necrotic Tissue Type Adherent Slough -Structure Exposed N/A -Texture (Meghan-wound Skin Appearance) Localized Edema ,Scarring -Moisture (Meghan-wound Skin Appearance) Dry/Scaly -Color (Meghan-wound Skin Appearance) No Abnormality -Temperature (Meghan-wound Skin No Abnormality Appearance) (Pt Warm) -Tenderness on Palpation (Meghan-wound No Skin Appearance) -Ulcer Cleansing Rinsed/ Irrigated with Saline -Foul Odor after Cleansing No -Anesthetic Used 5% Lidocaine Gel Right Calf (cm) 44 Right Ankle (cm) 27.3 WC - Nurse 2 - General Ulcer CM Notes Start: 10/20/24 11:07 Freq: Status: Active Protocol: Activity Type Activity Date Activity User E-sign Co-sign Detail Recorded Client Recorded Date Recorded By Document 10/20/24 11:29 BM [id number] 10/20/24 11:34 BMF Document 10/20/24 11:38 BM [id number] 10/20/24 11:40 BMF Edit Result 10/20/24 11:38 BMF (1) [id number] 10/26/24 08:38 BM (1) #2 RT MED ANKLE - Type of Offloading Total Contact Cast => (TCC) - Right ($) => 10/20/24 10/20/24 11:29 11:38 Wound Center Nurse 2 #1 RT LAT ANKLE CLUSTER -Time 11:29 -Procedure Performed No -Post Debridement (cm) - Length 0 -Post Debridement (cm) - Width 0 -Post Debridement (cm) - Depth 0 -Total Square (Post) (cm) 0 -Area of Debridement (cm) - Length 0 -Area of Debridement (cm) - Width 0 -Total Square (Area) (cm) 0 -Wound/Ulcer Outcome Healed- Epithelialized -Bleeding Controlled with NA #2 RT MED ANKLE -Time 11:30 11:38 -Correct Patient Yes Yes -Correct Side, Site, Position Yes Yes -Correct Procedure Yes Yes -Procedure Performed Yes Yes -Type of Procedure Debridement Debridement -Clinical Debridement Subcutaneous Subcutaneous -Tissue Removed Subcutaneous Subcutaneous -Post Debridement (cm) - Length 0.4 0.4 -Post Debridement (cm) - Width 0.3 0.3 -Post Debridement (cm) - Depth 0.1 0.1 -Total Square (Post) (cm) 0.12 0.12 -Area of Debridement (cm) - Length 0.4 0.4 -Area of Debridement (cm) - Width 0.3 0.3 -Total Square (Area) (cm) 0.12 0.12 -Tunneling No No -Undermining/Tunneling No No -Circular Undermining No No -Wound/Ulcer Outcome Not Healed Not Healed -Ulcer Cleansing Rinsed/ Rinsed/ Irrigated with Irrigated with Saline Saline -Foul Odor after Cleansing No No -Bioengineered Tissue No No -Bleeding Controlled with Pressure Pressure -Treatment Response Procedure Tolerated Well -Debridement - Subq, 1st 20sq cm Yes Yes Pain Scale: 0-10 Numeric Is Patient Pain Free? Yes Yes WC - Nurse 3 - General Ulcer D/C NN Start: 10/20/24 11:07 Freq: Status: Active Protocol: Activity Type Activity Date Activity User E-sign Co-sign Detail Recorded Client Recorded Date Recorded By Document 10/20/24 11:40 DL [id number] 10/20/24 11:42 DL 10/20/24 11:40 Wound Care Center Nurse 3 #2 RT MED ANKLE -Ulcer Cleansing Rinsed/ Irrigated with Saline -Foul Odor after Cleansing No -Primary Dressing Covered/Secured with Dry Gauze & Roll Gauze, Secured with Tape -Wound Comment(s) Pt to resume 1/ 4 iodoform packing to R Med Ankle at home. RLE -Tubular Bandage Single Layer -Size of Tubigrip Used Size F -Size F ($) 1 Pain Scale: 0-10 Numeric Is Patient Pain Free? Yes WC - Visit Discharge Discharge Condition Stable Ambulatory Status Ambulatory,Cane Transportation Trans Assessment/Plan Assessment/Plan (1) Non-pressure chronic ulcer of right calf with fat layer exposed: CODE(S): L97.212 - Non-pressure chronic ulcer of right calf with fat layer exposed (2) Non-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: CODE(S): L97.312 - Non-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 (3) Pyoderma gangrenosum: CODE(S): L88 - Pyoderma gangrenosum (4) Lipodermatosclerosis of right lower extremity: CODE(S): M79.3 - Panniculitis, unspecified (5) Venous insufficiency (chronic) (peripheral): CODE(S): I87.2 - Venous insufficiency (chronic) (peripheral) (6) Osteomyelitis of right ankle: CODE(S): M86.9 - Osteomyelitis, unspecified PLAN: Plan Patient seen and evaluated She is s/p I&D, removal of infected hardware right ankle, and bone biopsy tibia and fibula. DOS: 07/21/2024. POD #101 She is 3 months out from surgery. Does have history of PG, which does complicate wound healing. Dressings were removed and site was inspected with cicatrix at the medial and lateral ankle. There is small superficial area of dehiscence to both medial site. Lateral site remains healed. No signs of infection. Pre-debridement: Medial 0.1 cm x 0.1 cm x 0.1 cm, lateral healed Site did not undergo debridement as noted in clinical panel above. Postdebridement measurements of medial site of the right lower extremity measures 0.1 cm x 0.1 cm x 0.1 cm and lateral site remains healed. There is continued improvement noted to her medial side from previous visit. Currently she has no purulence or signs of infection from either site and pain continues improving about wound sites. Will pad and protect site to the medial aspect of the ankle. She may continue to wash sites with soap and water. She is permitted to transition to full weightbearing in supportive shoe. She is also to continue to elevate right lower extremity at times of rest for postoperative edema control. She did see infectious disease who opted for continued oral antibiotic, doxycycline 100 mg twice a day for next 6 weeks. She has finished the 6-week course of oral antibiotic. She did return for another visit with Dr. Moya due to her generalized fatigue and soreness of the ankle following stopping of the oral antibiotic. He did decide to extend the oral antibiotic doxycycline for an additional 4 weeks. I have previously discussed the surgical cultures, including bone cultures did demonstrate staph aureus. Discussed that she does currently have osteomyelitis of the fibula and distal tibia, and has now finished her oral antibiotic course. Will continue to follow infectious disease Radiographs of the right lower extremity from 10/13/2024 demonstrate healing and ossification of bone tunnel in the distal fibula at prior sites of osteomyelitis. She will continue to follow with Dr. Salinas post venous ablation. Patient is currently on immunosuppressant agents for autoimmune disease, continues follow with Rheumatology. Discussed signs and symptoms of infection. Discussed with her if she notices increasing redness about the ulcerative site that moves up the leg, purulent drainage from the ulcerative site, increasing foul odor from the ulcerative site, or if she develops fever greater than 101 degree, develops nausea, vomiting, chills, these are signs of a progressing infection and she should report to the ED for IV antibiotics. She voices understanding of this today. The following work up and care recommendations were made: Dressing: Pad and protect medial ankle Wash: Soap and water Tissue growth optimization: None Offload: Full weightbearing to right lower extremity with supportive shoe gear Vascular: DP and PT pulses palpable with adequate capillary fill time to digits. Did undergo venous procedure 07/21/[address] Salinas. Edema: Patient does have chronic venous insufficiency with bilateral lower extremity edema. Infection: Positive bone culture Staph aureus. Infectious disease following and patient on oral antibiotic doxycycline for an additional 4 weeks. Pain: May take [id number] Tylenol for discomfort Host factors: Chronic venous insufficiency, autoimmune disease, pyoderma gangrenosum At this time prognosis is good and does appear to be healing well. Will continue to observe for signs of PG as she has had prior history with this. I answered all the patient's questions. To return to the wound healing center in 3 weeks or call sooner if the patient has any questions or concerns. Will return to the wound care center for continued postoperative care s/p I&D, removal of infected hardware right ankle, and bone biopsy tibia and fibula.
[2024-11-10 09:41] VITALS: BP 154/85; PULSE 84; RESP 18; TEMP 37.3
== END 2024-11-19 23:59 | disposition home or self-care (01) ==
LOC: WC 09:30
PROVIDERS: PCP Internal Medicine; Referring Provider Student in an Organized Health Care Education/Training Program; Visit Provider Student in an Organized Health Care Education/Training Program
DX: T81.31XA Disruption of external operation (surgical) wound, not elsewhere classified, initial encounter (principal); L97.312 Non-pressure chronic ulcer of right 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; M86.8X7 Other osteomyelitis, ankle and foot; L88 Pyoderma gangrenosum; R60.0 Localized edema; Y83.8 Other surgical procedures as the cause of abnormal reaction of the patient, or of later complication, without mention of misadventure at the time of the procedure; I87.2 Venous insufficiency (chronic) (peripheral); Z79.01 Long term (current) use of anticoagulants; Z79.899 Other long term (current) drug therapy
CPT/HCPCS: 11042; 29445; 99213; G0463

== ENCOUNTER 2024-12-15 11:00 | Outpatient (RCR) | payer MEDICARE, MEDICAID, SELFPAY ==
[2024-11-20 00:19] VITALS: BP 154/85; PULSE 84; RESP 18; TEMP 37.3
[2024-12-01 10:14] VITALS: BP 165/92; PULSE 75; RESP 16; TEMP 36.1
--- NOTE | 2024-12-01 10:42 | PN.PCM_ITS ---
History of Present Illness Date of Service: 12/01/24 Chief Complaint: Surgical wound dehiscence right leg History of Wound: Patient is a 38-year-old female who subsequently developed a surgical wound dehiscence of her right lateral lower extremity. She previously underwent surgery for primary repair of split tear of the peroneus brevis tendon, primary repair of anterior tibiofibular ligament (AITFL), and syndesmotic reduction via tight rope of the right lower extremity on 04/24/2023. Following removal of sutures she developed surgical wound dehiscence secondary to continued lower extremity swelling via chronic venous insufficiency. She did undergo debridement in office 06/05/2023 and Deidre was applied at this time with Tubigrip compression. She has worn compression stockings to manage lower extremity swelling prior to surgical intervention. Patient is also noted to have autoimmune disease and is managed by rheumatology with medication and did resume all medications 2 weeks post operative per rheumatology. She was referred to the wound care center for continued wound healing. She has been applying Diedre and dry sterile dressings daily. She denies N/V/F/chills. Denies further complaints. Subjective Subjective This is a 39-year-old female who presents to the wound care center for continued follow-up of medial and lateral ankle ulceration. She did undergo debridement with removal of infected hardware of the right ankle on 07/21/2024. At that time bone biopsy was also taken of the tibia and fibula confirming infection. She also underwent vascular procedure with Dr. Salinas following removal of her hardware. Continues to follow with vascular postprocedure and reports no issues. She has continued protective weightbearing status and is doing well. Following with infectious disease with most recent visit yesterday. Oral antibiotic to be discontinued. She also did see dermatology who is also discontinuing prior treatment. She continues to change dressing daily medial leg wound site with Band-Aid. States site continues to improve. Currently denies N/V/F/chills. Denies further complaints. Objective Data Objective Data Vital Signs: Vital Signs Temp Pulse Resp BP O2 Del Method 96.9 F L 75 16 165/92 H Room Air 12/01/24 10:14 12/01/24 10:14 12/01/24 10:14 12/01/24 10:14 12/01/24 10:14 Oxygen Delivery Method Room Air Physical Exam Const alert, oriented x3 and no apparent distress General Appearance: cooperative HEENT Head and Scalp: normal to inspection Eyes General Eye: normal appearance of both eyes Neck General: normal visual inspection Lymph Lymphatic: no lymphadenopathy noted and no lymphedema noted Resp normal respiratory effort Cardio regular rate and regular rhythm Extremity no calf tenderness Extremity Narrative: Right Lower Extremity: Vascular DP and PT pulses palpable bilateral. Capillary fill time less than 3 seconds to digits bilateral. Normal temperature gradient. There is hair growth present to lower extremity and digits. Neurologic: Epicritic sensation intact no focal deficits noted. Dermatological: There is bilateral lower extremity edema secondary to chronic venous stasis with some hemosiderin deposition noted about the right lower extremity. Cicatrix to medial and lateral ankle. There is a small area of superficial dehiscence at Medial site, but this is improving. Lateral site has epithelialized. No signs of infection. Musculoskeletal: Muscle strength 5 of 5 age-appropriate. No pain to palpation about the lateral leg of the right lower extremity. No pain to palpation calf. Skin no rashes or lesions noted Neuro moves all extremities Debridement Note Debridement Note No debridement was completed: No debridement was completed today Post-Debridement Measurements and Additional Note: Post-Debridement Measurements/Treatment - Nurse 1 - General Ulcer Assessment Start: 12/01/24 10:13 Freq: Status: Active Protocol: LAURIE Activity Type Activity Date Activity User E-sign Co-sign Detail Recorded Client Recorded Date Recorded By Document 12/01/24 10:14 ROBERT [id number] 12/01/24 10:18 ROBERT 12/01/24 10:14 - Today's Visit Information Type of service Follow-up Visit (Physician/RETAIL ACCOUNT SPECIALIST ) Arrival Mode Ambulatory,Cane Patient Identification Verified (Name & Yes ) Vital Signs Temperature (97.8 F-99.1 F) 96.9 F L Temperature Source Temporal Pulse Rate (60-100) 75 Pulse Location Monitor Respiratory Rate (12-18) 16 Respiratory rate source Observation Oxygen Delivery Method Room Air Blood Pressure (90/60-120/80) 165/92 H Blood Pressure Mean (mm Hg) 116 Source Monitor Position Semi-Fowlers Blood Pressure Location Right Forearm History Since Last Visit- (Skip if this is Patient's initial visit) Have you changed medications since your No last visit? Any new allergies or adverse reactions No Had a fall/change in ADL's that may No increase risk of falls Signs or symptoms of abuse and/or No neglect since last visit Have you been in the hospital since your No last visit? Has dressing in place as prescribed Yes Has compression in place as prescribed Yes Has offloadiing in place as prescribed Yes Experienced any changes in pain level or No management Left Footwear Regular Shoe Right Footwear Surgical Shoe with pressure relief insole Pain Scale: 0-10 Numeric Is Patient Pain Free? Yes WC - Nurse 1 - General Ulcer Measurement Start: 12/01/24 10:13 Freq: Status: Active Protocol: Activity Type Activity Date Activity User E-sign Co-sign Detail Recorded Client Recorded Date Recorded By Document 12/01/24 10:14 [id number] 12/01/24 10:18 12/01/24 10:14 Wound Center Nurse 1 #2 RT MED ANKLE -Current Size (cm) - Length 0.1 -Current Size (cm) - Width 0.1 -Current Size (cm) - Depth 0 -Total Square Cm 0.01 -Date of Last Picture (Recall this 12/01/24 field) -Exudate Amt None Present -Granulation Amt None Present (0 %) -Necrosis Amt None Present (0 %) -Texture (Meghan-wound Skin Appearance) Assessed -Moisture (Meghan-wound Skin Appearance) Assessed,Dry/ Scaly -Color (Meghan-wound Skin Appearance) Assessed, Erythema -Temperature (Meghan-wound Skin No Abnormality Appearance) (Pt Warm) -Tenderness on Palpation (Meghan-wound No Skin Appearance) -Ulcer Cleansing Rinsed/ Irrigated with Saline -Foul Odor after Cleansing No Right Calf (cm) 42.5 Right Ankle (cm) 27.5 - Nurse 2 - General Ulcer CM Notes Start: 12/01/24 10:13 Freq: Status: Active Protocol: Activity Type Activity Date Activity User E-sign Co-sign Detail Recorded Client Recorded Date Recorded By Document 12/01/24 10:28 [facility] [id number] 12/01/24 10:34 [facility] 12/01/24 10:28 Wound Center Nurse 2 #2 RT MED ANKLE -Time 10:29 -Procedure Performed No -Post Debridement (cm) - Length 0.1 -Post Debridement (cm) - Width 0.1 -Post Debridement (cm) - Depth 0.1 -Total Square (Post) (cm) 0.01 -Area of Debridement (cm) - Length 0.1 -Area of Debridement (cm) - Width 0.1 -Total Square (Area) (cm) 0.01 -Tunneling No -Undermining/Tunneling No -Circular Undermining No -Bleeding Controlled with NA Pain Scale: 0-10 Numeric Is Patient Pain Free? Yes - Nurse 3 - General Ulcer D/C NN Start: 12/01/24 10:13 Freq: Status: Active Protocol: Activity Type Activity Date Activity User E-sign Co-sign Detail Recorded Client Recorded Date Recorded By Document 12/01/24 10:37 [facility] [id number] 12/01/24 10:38 [facility] 12/01/24 10:37 Wound Care Center Nurse 3 #2 RT MED ANKLE -Other Covering bandaid RLE -Tubular Bandage Single Layer -Size of Tubigrip Used Size E -Size E ($) 1 Pain Scale: 0-10 Numeric Is Patient Pain Free? 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 DOS: 07/21/2024. POD #122 She is 4 months out from surgery. Dressings were removed and site was inspected with cicatrix at the medial and lateral ankle. There is small superficial area of dehiscence medial site. Lateral site remains healed. No signs of infection. Pre-debridement: Medial 0.1 cm x 0.1 cm x 0.1 cm, lateral healed Site did not undergo debridement as noted in clinical panel above. Postdebridement measurements of medial site of the right lower extremity measures 0.1 cm x 0.1 cm x 0.1 cm and lateral site remains healed. There is continued improvement noted to her medial side from previous visit yet healing remains slow due to autoimmune disease. Currently she has no purulence or signs of infection from either site and pain continues improving about wound sites. Will pad and protect site to the medial aspect of the ankle. She may continue to wash sites with soap and water. She is permitted to transition to full weightbearing in supportive shoe. She is also to continue to elevate right lower extremity at times of rest for postoperative edema control. She did see infectious disease who opted for continued oral antibiotic, doxycycline 100 mg twice a day for next 6 weeks. She has finished the 6-week course of oral antibiotic. She did return for another visit with Dr. Moya due to her generalized fatigue and soreness of the ankle following stopping of the oral antibiotic. He did decide to extend the oral antibiotic doxycycline for an additional 4 weeks. She did complete this course and is now off oral antibiotic. I discussed with her at this time I do not feel she needs to continue this. I have previously discussed the surgical cultures, including bone cultures did demonstrate staph aureus. Discussed that she does currently have osteomyelitis of the fibula and distal tibia, and has now finished her oral antibiotic course. Will continue to follow infectious disease Radiographs of the right lower extremity from 10/13/2024 demonstrate healing and ossification of bone tunnel in the distal fibula at prior sites of osteomyelitis. She will continue to follow with Dr. Salinas post venous ablation. She did last see Dr. Moralez, hris developer who is in agreement with healing currently and is discontinuing all prior treatment. Patient is currently on immunosuppressant agents for autoimmune disease, continues follow with Rheumatology. At this time with healing going well she may resume autoimmune agents with rheumatology. Discussed signs and symptoms of infection. Discussed with her if she notices increasing redness about the ulcerative site that moves up the leg, purulent drainage from the ulcerative site, increasing foul odor from the ulcerative site, or if she develops fever greater than 101 degree, develops nausea, vom iting, chills, these are signs of a progressing infection and she should report to the ED for IV antibiotics. She voices understanding of this today. The following work up and care recommendations were made: Dressing: Pad and protect medial ankle Wash: Soap and water Tissue growth optimization: None Offload: Full weightbearing to right lower extremity with supportive shoe gear Vascular: DP and PT pulses palpable with adequate capillary fill time to digits. Did undergo venous procedure 07/21/[address] Salinas. Edema: Patient does have chronic venous insufficiency with bilateral lower extre mity edema. Infection: Positive bone culture Staph aureus. Infectious disease following and patient on oral antibiotic doxycycline for an additional 4 weeks. Pain: May take [id number] Tylenol for discomfort Host factors: Chronic venous insufficiency, autoimmune disease, pyoderma gangrenosum At this time prognosis is good and does appear to be healing well. I answered all the patient's questions. To return to the wound healing center in 2 weeks or call sooner if the patient has any questions or concerns. Will return to the wound care center for continued postoperative care s/p I&D, r emoval of infected hardware right ankle, and bone biopsy tibia and fibula.
--- NOTE | 2024-12-02 08:25 | WC ---
PHOTO 12/01/24 [facility]
[2024-12-15 11:06] VITALS: BP 169/95; PULSE 75; RESP 18; TEMP 36.1
--- NOTE | 2024-12-15 12:31 | PCM.WC.PN ---
History of Present Illness Date of Service: 12/15/24 Chief Complaint: Surgical wound dehiscence right leg History of Wound: Patient is a 38-year-old female who subsequently developed a surgical wound dehiscence of her right lateral lower extremity. She previously underwent surgery for primary repair of split tear of the peroneus brevis tendon, primary repair of anterior tibiofibular ligament (AITFL), and syndesmotic reduction via tight rope of the right lower extremity on 04/24/2023. Following removal of sutures she developed surgical wound dehiscence secondary to continued lower extremity swelling via chronic venous insufficiency. She did undergo debridement in office 06/05/2023 and Deidre was applied at this time with Tubigrip compression. She has worn compression stockings to manage lower extremity swelling prior to surgical intervention. Patient is also noted to have autoimmune disease and is managed by rheumatology with medication and did resume all medications 2 weeks post operative per rheumatology. She was referred to the wound care center for continued wound healing. She has been applying Deidre and dry sterile dressings daily. She denies N/V/F/chills. Denies further complaints. Subjective Subjective This is a 39-year-old female who presents to the wound care center for continued follow-up of medial and lateral ankle ulceration. She did undergo debridement with removal of infected hardware of the right ankle on 07/21/2024. At that time bone biopsy was also taken of the tibia and fibula confirming infection. She also underwent vascular procedure with Dr. Salinas following removal of her hardware. Continues to follow with vascular postprocedure and reports no issues. She has continued protective weightbearing status with surgical shoe and is doing well. She continues to change dressing daily medial leg wound site with Band-Aid to pad and protect site. States site continues to improve. Currently denies N/V/F/chills. Denies further complaints. Objective Data Objective Data Vital Signs: Vital Signs Temp Pulse Resp BP O2 Del Method 97 F L 75 18 169/95 H Room Air 12/15/24 11:06 12/15/24 11:12/15/24 11:12/15/24 11:06 12/01/24 10:14 Oxygen Delivery Method Room Air Physical Exam Const alert, oriented x3 and no apparent distress General Appearance: cooperative Eyes General Eye: normal appearance of both eyes Neck General: normal visual inspection Lymph Lymphatic: no lymphadenopathy noted and no lymphedema noted Resp normal respiratory effort Cardio regular rate and regular rhythm Extremity no calf tenderness Extremity Narrative: Right Lower Extremity: Vascular DP and PT pulses palpable bilateral. Capillary fill time less than 3 seconds to digits bilateral. Normal temperature gradient. There is hair growth present to lower extremity and digits. Neurologic: Epicritic sensation intact no focal deficits noted. Dermatological: There is bilateral lower extremity edema secondary to chronic venous stasis with some hemosiderin deposition noted about the right lower extremity. Cicatrix to medial and lateral ankle. There is a small area of superficial dehiscence at Medial site, but this is improving. Lateral site has epithelialized. No signs of infection. Musculoskeletal: Muscle strength 5 of 5 age-appropriate. No pain to palpation about the lateral leg of the right lower extremity. No pain to palpation calf. Skin no rashes or lesions noted Neuro moves all extremities Debridement Note Debridement Note No debridement was completed: No debridement was completed today Post-Debridement Measurements and Additional Note: Post-Debridement Measurements/Treatment - Nurse 1 - General Ulcer Assessment Start: 12/01/24 10:13 Freq: Status: Active Protocol: WC.GABRIEL Activity Type Activity Date Activity User E-sign Co-sign Detail Recorded Client Recorded Date Recorded By Document 12/01/24 10:14 KW [id number] 12/01/24 10:18 KW Document 12/15/24 11:06 DL [id number] 12/15/24 11:14 DL 12/01/24 12/15/24 10:14 11:06 - Today's Visit Information Type of service Follow-up Visit Follow-up Visit (Physician/EQUIPMENT OR MACHINERY CLEANER (Physician/EQUIPMENT OR MACHINERY CLEANER ) ) Arrival Mode Ambulatory,Cane Ambulatory Transfer Assistance None Patient Identification Verified (Name & Yes Yes ) Patient Requires Transmission-Based No Precautions Vital Signs Temperature (97.8 F-99.1 F) 96.9 F L 97 F L Temperature Source Temporal Temporal Pulse Rate (60-100) 75 75 Pulse Location Monitor Monitor Respiratory Rate (12-18) 16 18 Respiratory rate source Observation Observation Oxygen Delivery Method Room Air Blood Pressure (90/60-120/80) 165/92 H 169/95 H Blood Pressure Mean (mm Hg) 116 119 Source Monitor Monitor Position Semi-Fowlers Blood Pressure Location Right Forearm History Since Last Visit- (Skip if this is Patient's initial visit) Have you changed medications since your No No last visit? Any new allergies or adverse reactions No No Had a fall/change in ADL's that may No No increase risk of falls Signs or symptoms of abuse and/or No No neglect since last visit Have you been in the hospital since your No No last visit? Has dressing in place as prescribed Yes Yes Has compression in place as prescribed Yes Yes Has offloadiing in place as prescribed Yes Yes Experienced any changes in pain level or No No management Left Footwear Regular Shoe Right Footwear Surgical Shoe with pressure relief insole Pain Scale: 0-10 Numeric Is Patient Pain Free? Yes No RLE -Description Dull,Tightness -Radiation Location 3 -Duration (hours) Chronic -Pain Behavior No Change in Behavior -Comments suppose to f/u with RA Dr. KEITA - Nurse 1 - General Ulcer Measurement Start: 12/01/24 10:13 Freq: Status: Active Protocol: Activity Type Activity Date Activity User E-sign Co-sign Detail Recorded Client Recorded Date Recorded By Document 12/01/24 10:14 KW [id number] 12/01/24 10:18 KW Document 12/15/24 11:06 DL [id number] 12/15/24 11:14 DL 12/01/24 12/15/24 10:14 11:06 Wound Center Nurse 1 #2 RT MED ANKLE -Current Size (cm) - Length 0.1 0.1 -Current Size (cm) - Width 0.1 0.1 -Current Size (cm) - Depth 0 0.1 -Total Square Cm 0.01 0.01 -Date of Last Picture (Recall this 12/01/24 field) -Photo Taken Yes -Exudate Amt None Present Small -Exudate Type Serosanguineous -Wound Margin Indistinct, Non -Visible -Granulation Amt None Present (0 Small (1-33%) %) -Granulation Quality Red -Necrosis Amt None Present (0 None Present (0 %) %) -Structure Exposed N/A -Texture (Meghan-wound Skin Appearance) Assessed Localized Edema ,Scarring -Moisture (Meghan-wound Skin Appearance) Assessed,Dry/ Dry/Scaly Scaly -Color (Meghan-wound Skin Appearance) Assessed, Hemosiderin Erythema Staining -Temperature (Meghan-wound Skin No Abnormality No Abnormality Appearance) (Pt Warm) (Pt Warm) -Tenderness on Palpation (Meghan-wound No No Skin Appearance) -Ulcer Cleansing Rinsed/ Rinsed/ Irrigated with Irrigated with Saline Saline -Foul Odor after Cleansing No No -Anesthetic Used 5% Lidocaine Gel Right Calf (cm) 42.5 43.5 Right Ankle (cm) 27.5 28 WC - Nurse 2 - General Ulcer CM Notes Start: 12/01/24 10:13 Freq: Status: Active Protocol: Activity Type Activity Date Activity User E-sign Co-sign Detail Recorded Client Recorded Date Recorded By Document 12/01/24 10:28 [facility] [id number] 12/01/24 10:34 [facility] Document 12/15/24 11:26 [facility] [id number] 12/15/24 11:33 [facility] 12/01/24 12/15/24 10:28 11:26 Wound Center Nurse 2 #2 RT MED ANKLE -Time 10:29 11:26 -Procedure Performed No No -Post Debridement (cm) - Length 0.1 0.1 -Post Debridement (cm) - Width 0.1 0.1 -Post Debridement (cm) - Depth 0.1 0.1 -Total Square (Post) (cm) 0.01 0.01 -Area of Debridement (cm) - Length 0.1 0.1 -Area of Debridement (cm) - Width 0.1 0.1 -Total Square (Area) (cm) 0.01 0.01 -Tunneling No No -Undermining/Tunneling No No -Circular Undermining No No -Wound/Ulcer Outcome Not Healed -Bleeding Controlled with NA NA -Treatment Response Procedure Tolerated Well Pain Scale: 0-10 Numeric Is Patient Pain Free? Yes Yes - Nurse 3 - General Ulcer D/C NN Start: 12/01/24 10:13 Freq: Status: Active Protocol: Activity Type Activity Date Activity User E-sign Co-sign Detail Recorded Client Recorded Date Recorded By Document 12/01/24 10:37 [facility] [id number] 12/01/24 10:38 [facility] Document 12/15/24 11:33 [facility] [id number] 12/15/24 11:34 [facility] 12/01/24 12/15/24 10:37 11:33 Wound Care Center Nurse 3 #2 RT MED ANKLE -Ulcer Cleansing Rinsed/ Irrigated with Saline -Foul Odor after Cleansing No -Other Dressing bandaid -Other Covering bandaid RLE -Tubular Bandage Single Layer -Size of Tubigrip Used Size E -Size E ($) 1 Treatment Response Procedure Tolerated Well Pain Scale: 0-10 Numeric Is Patient Pain Free? 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 DOS: 07/21/2024. POD #129 She is 4 months out from surgery. Dressings were removed and site was inspected with cicatrix at the medial and lateral ankle. There is small superficial area of dehiscence medial site. Lateral site remains healed. No signs of infection. Pre-debridement: Medial 0.1 cm x 0.1 cm x 0.1 cm, lateral healed Site did not undergo debridement as noted in clinical panel above. Postdebridement measurements of medial site of the right lower extremity measures 0.1 cm x 0.1 cm x 0.1 cm and lateral site remains healed. There is continued improvement noted to her medial side from previous visit yet healing remains slow due to autoimmune disease. Currently she has no purulence or signs of infection from either site and pain continues improving about wound sites. Will continue to pad and protect site to the medial aspect of the ankle. She may continue to wash sites with soap and water. She is permitted to transition to full weightbearing in supportive shoe. A small Plastizote lift was added to the left shoe She is also to continue to elevate right lower extremity at times of rest for postoperative edema control. She did see infectious disease who opted for continued oral antibiotic, doxycycline 100 mg twice a day for 6 weeks. She has finished the 6-week course of oral antibiotic. She did return for another visit with Dr. Moya due to her generalized fatigue and soreness of the ankle following stopping of the oral antibiotic. He did decide to extend the oral antibiotic doxycycline for an additional 4 weeks. She did complete this course and is now off oral antibiotic. I discussed with her at this time I do not feel she needs to continue this. I have previously discussed the surgical cultures, including bone cultures did demonstrate staph aureus. Discussed that she does currently have osteomyelitis of the fibula and distal tibia, and has now finished her oral antibiotic course. Will continue to follow infectious disease Radiographs of the right lower extremity from 10/13/2024 demonstrate healing and ossification of bone tunnel in the distal fibula at prior sites of osteomyelitis. She will continue to follow with Dr. Salinas post venous ablation. She did last see Dr. Moralez, employee benefits coordinator who is in agreement with healing currently and is discontinuing all prior treatment. Patient is currently on immunosuppressant agents for autoimmune disease, continues follow with Rheumatology. At this time with healing going well she may resume autoimmune agents with rheumatology. Discussed signs and symptoms of infection. Discussed with her if she notices increasing redness about the ulcerative site that moves up the leg, purulent drainage from the ulcerative site, increasing foul odor from the ulcerative site, or if she develops fever greater than 101 degree, develops nausea, vomiting, chills, these are signs of a progressing infection and she should report to the ED for IV antibiotics. She voices understanding of this today. The following work up and care recommendations were made: Dressing: Pad and protect medial ankle Wash: Soap and water Tissue growth optimization: None Offload: Full weightbearing to right lower extremity with supportive shoe gear Vascular: DP and PT pulses palpable with adequate capillary fill time to digits. Did undergo venous procedure 07/21/[address] Salinas. Edema: Patient does have chronic venous insufficiency with bilateral lower extremity edema. Infection: Positive bone culture Staph aureus. Infectious disease following and patient on oral antibiotic doxycycline for an additional 4 weeks. Pain: May take [id number] Tylenol for discomfort Host factors: Chronic venous insufficiency, autoimmune disease, pyoderma gangrenosum At this time prognosis is good and does appear to be healing well. I answered all the patient's questions. To return to the wound healing center in 2 weeks or call sooner if the patient has any questions or concerns. Will return to the wound care center for continued postoperative care s/p I&D, removal of infected hardware right ankle, and bone biopsy tibia and fibula.
--- NOTE | 2024-12-15 13:54 | WC ---
PHOTO 12/15/24 RIGHT [facility] ANKLE
== END 2024-12-19 23:59 | disposition home or self-care (01) ==
LOC: WC 11:00
PROVIDERS: PCP Internal Medicine; Referring Provider Student in an Organized Health Care Education/Training Program; Visit Provider Student in an Organized Health Care Education/Training Program
DX: T81.31XA Disruption of external operation (surgical) wound, not elsewhere classified, initial encounter (principal); Y83.8 Other surgical procedures as the cause of abnormal reaction of the patient, or of later complication, without mention of misadventure at the time of the procedure; I87.2 Venous insufficiency (chronic) (peripheral); R60.0 Localized edema; Z79.01 Long term (current) use of anticoagulants; Z79.899 Other long term (current) drug therapy
CPT/HCPCS: 99213; G0463

== ENCOUNTER 2025-01-12 10:00 | Outpatient (RCR) | payer MEDICARE, MEDICAID, SELFPAY ==
[2024-12-29 10:17] VITALS: BP 141/93; PULSE 86; RESP 16; TEMP 36.2
--- NOTE | 2024-12-29 13:02 | PN.PCM_ITS ---
History of Present Illness Date of Service: 12/29/24 Chief Complaint: Surgical wound dehiscence right leg History of Wound: Patient is a 38-year-old female who subsequently developed a surgical wound dehiscence of her right lateral lower extremity. She previously underwent surgery for primary repair of split tear of the peroneus brevis tendon, primary repair of anterior tibiofibular ligament (AITFL), and syndesmotic reduction via tight rope of the right lower extremity on 04/24/2023. Following removal of sutures she developed surgical wound dehiscence secondary to continued lower extremity swelling via chronic venous insufficiency. She did undergo debridement in office 06/05/2023 and Deidre was applied at this time with Tubigrip compression. She has worn compression stockings to manage lower extremity swelling prior to surgical intervention. Patient is also noted to have autoimmune disease and is managed by rheumatology with medication and did resume all medications 2 weeks post operative per rheumatology. She was referred to the wound care center for continued wound healing. She has been applying Deidre and dry sterile dressings daily. She denies N/V/F/chills. Denies further complaints. Subjective Subjective This is a 39-year-old female who presents to the wound care center for continued follow-up of medial and lateral ankle ulceration. She did undergo debridement with removal of infected hardware of the right ankle on 07/21/2024. At that time bone biopsy was also taken of the tibia and fibula confirming infection. She also underwent vascular procedure with Dr. Salinas following removal of her hardware. Continues to follow with vascular postprocedure and reports no issues. She returned to shoe gear full weightbearing without difficulty. She continues to change dressing daily medial leg wound site with Band-Aid to pad and protect site. States site continues to improve but still has pinpoint spot which appears open. Currently denies N/V/F/chills. Denies further complaints. Objective Data Objective Data Vital Signs: Vital Signs Temp Pulse Resp BP 97.2 F L 86 16 141/93 H 12/29/24 10:17 12/29/24 10:17 12/29/24 10:17 12/29/24 10:17 Physical Exam Const alert, oriented x3 and no apparent distress General Appearance: cooperative HEENT normocephalic Eyes General Eye: normal appearance of both eyes Neck General: normal visual inspection Lymph Lymphatic: no lymphadenopathy noted and no lymphedema noted Resp normal respiratory effort Cardio regular rate and regular rhythm Extremity no calf tenderness Extremity Narrative: Right Lower Extremity: Vascular DP and PT pulses palpable bilateral. Capillary fill time less than 3 seconds to digits bilateral. Normal temperature gradient. There is hair growth present to lower extremity and digits. Neurologic: Epicritic sensation intact no focal deficits noted. Dermatological: There is bilateral lower extremity edema secondary to chronic venous stasis with some hemosiderin deposition noted about the right lower extremity. Cicatrix to medial and lateral ankle. There is a small area of superficial dehiscence at Medial site, but this is improving and nearing closure. Lateral site healed. No signs of infection. Musculoskeletal: Muscle strength 5 of 5 age-appropriate. No pain to palpation about the lateral leg of the right lower extremity. No pain to palpation calf. Skin no rashes or lesions noted Neuro moves all extremities Debridement Note Debridement Note No debridement was completed: No debridement was completed today Post-Debridement Measurements and Additional Note: Post-Debridement Measurements/Treatment - Nurse 1 - General Ulcer Assessment Start: 12/29/24 10:17 Freq: Status: Active Protocol: LAURIE Activity Type Activity Date Activity User E-sign Co-sign Detail Recorded Client Recorded Date Recorded By Document 12/29/24 10:17 [id number] 12/29/24 10:24 12/29/24 10:17 - Today's Visit Information Type of service Follow-up Visit (Physician/CANE FEEDER ) Arrival Mode Ambulatory,Cane Transfer Assistance None Patient Identification Verified (Name & Yes ) Patient Requires Transmission-Based No Precautions Vital Signs Temperature (97.8 F-99.1 F) 97.2 F L Temperature Source Temporal Pulse Rate (60-100) 86 Pulse Location Monitor Respiratory Rate (12-18) 16 Respiratory rate source Observation Blood Pressure (90/60-120/80) 141/93 H Blood Pressure Mean (mm Hg) 109 Source Monitor Position Sitting Blood Pressure Location Left Forearm History Since Last Visit- (Skip if this is Patient's initial visit) Have you changed medications since your No last visit? Any new allergies or adverse reactions No Had a fall/change in ADL's that may No increase risk of falls Signs or symptoms of abuse and/or No neglect since last visit Have you been in the hospital since your No last visit? Has dressing in place as prescribed Yes Has compression in place as prescribed Yes Experienced any changes in pain level or Yes management Left Footwear Regular Shoe Right Footwear Surgical Shoe with pressure relief insole Pain Scale: 0-10 Numeric Is Patient Pain Free? No WC - Nurse 1 - General Ulcer Measurement Start: 12/29/24 10:17 Freq: Status: Active Protocol: Activity Type Activity Date Activity User E-sign Co-sign Detail Recorded Client Recorded Date Recorded By Document 12/29/24 10:17 [id number] 12/29/24 10:24 12/29/24 10:17 Wound Center Nurse 1 #2 RT MED ANKLE -Current Size (cm) - Length 0.1 -Current Size (cm) - Width 0.1 -Current Size (cm) - Depth 0.1 -Total Square Cm 0.01 -Epithelialization Large 67-100% -Tunneling No -Undermining/Tunneling No -Change in Wound Grade/Stage No -Exudate Amt None Present -Slough/Fibrin No -Necrosis Amt None Present (0 %) -Structure Exposed N/A -Texture (Meghan-wound Skin Appearance) No Abnormality -Moisture (Meghna-wound Skin Appearance) No Abnormality -Color (Meghan-wound Skin Appearance) No Abnormality -Temperature (Meghan-wound Skin No Abnormality Appearance) (Pt Warm) -Tenderness on Palpation (Meghan-wound No Skin Appearance) -Ulcer Cleansing Rinsed/ Irrigated with Saline -Foul Odor after Cleansing No Right Calf (cm) 44.5 Right Ankle (cm) 28.1 WC - Nurse 2 - General Ulcer CM Notes Start: 12/29/24 10:17 Freq: Status: Active Protocol: Activity Type Activity Date Activity User E-sign Co-sign Detail Recorded Client Recorded Date Recorded By Document 12/29/24 11:25 [facility] [id number] 12/29/24 11:27 [facility] 12/29/24 11:25 Wound Center Nurse 2 #2 RT MED ANKLE -Time 11:25 -Procedure Performed No -Post Debridement (cm) - Length 0.1 -Post Debridement (cm) - Width 0.1 -Post Debridement (cm) - Depth 0.1 -Total Square (Post) (cm) 0.01 -Area of Debridement (cm) - Length 0.1 -Area of Debridement (cm) - Width 0.1 -Total Square (Area) (cm) 0.01 -Wound/Ulcer Outcome Not Healed -Bleeding Controlled with NA Pain Scale: 0-10 Numeric Is Patient Pain Free? Yes WC - Nurse 3 - General Ulcer D/C NN Start: 12/29/24 10:17 Freq: Status: Active Protocol: Activity Type Activity Date Activity User E-sign Co-sign Detail Recorded Client Recorded Date Recorded By Document 12/29/24 11:30 [facility] [id number] 12/29/24 11:32 [facility] 12/29/24 11:30 Wound Care Center Nurse 3 #2 RT MED ANKLE -Other Dressing left open to air RLE -Tubular Bandage Single Layer -Size of Tubigrip Used Size E -Size E ($) 1 Pain Scale: 0-10 Numeric Is Patient Pain Free? Yes WC - Visit Discharge Discharge Condition Stable Ambulatory Status Ambulatory,Cane Assessment/Plan Assessment/Plan (1) Non-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: CODE(S): L97.312 - Non-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 (2) Lipodermatosclerosis of right lower extremity: CODE(S): M79.3 - Panniculitis, unspecified (3) Venous insufficiency (chronic) (peripheral): CODE(S): I87.2 - Venous insufficiency (chronic) (peripheral) PLAN: Plan Patient seen and evaluated She is s/p I&D, removal of infected hardware right ankle, and bone biopsy tibia and fibula. DOS: 07/21/2024. POD #143 She is 4 months out from surgery. Dressings were removed and site was inspected with cicatrix at the medial and lateral ankle. There is small superficial area of dehiscence medial site. Lateral site remains healed. No signs of infection. Pre-debridement: Medial 0.1 cm x 0.1 cm x 0.1 cm, lateral healed Site did not undergo debridement as noted in clinical panel above. Postdebridement measurements of medial site of the right lower extremity measures 0.1 cm x 0.1 cm x 0.1 cm and lateral site remains healed. There is continued improvement noted to her medial side from previous visit yet healing remains slow due to autoimmune disease. She is nearing closure. Currently she has no purulence or signs of infection from either site and pain continues improving about wound sites. Will continue to pad and protect site to the medial aspect of the ankle. She may continue to wash sites with soap and water. She will continue full weightbearing in supportive shoe. A small Plastizote lift was added to the left shoe at last visit and she feels this is helping. She is also to continue to elevate right lower extremity at times of rest for postoperative edema control. She did see infectious disease who opted for continued oral antibiotic, doxycycline 100 mg twice a day for 6 weeks. She has finished the 6-week course of oral antibiotic. She did return for another visit with Dr. Moya due to her generalized fatigue and soreness of the ankle following stopping of the oral antibiotic. He did decide to extend the oral antibiotic doxycycline for an additional 4 weeks. She did complete this course and is now off oral antibiotic. I discussed with her at this time I do not feel she needs to continue this. I have previously discussed the surgical cultures, including bone cultures did demonstrate staph aureus. Discussed that she does currently have osteomyelitis of the fibula and distal tibia, and has now finished her oral antibiotic course. Discharged from ID standpoint. Radiographs of the right lower extremity from 10/13/2024 demonstrate healing and ossification of bone tunnel in the distal fibula at prior sites of osteomyelitis. She will continue to follow with Dr. Salinas post venous ablation. She did last see Dr. Moralez, bistro server who is in agreement with healing currently and is discontinued all prior treatment. Patient is currently on immunosuppressant agents for autoimmune disease, continues follow with Rheumatology. At this time with healing going well she may resume autoimmune agents with rheumatology. Discussed signs and symptoms of infection. Discussed with her if she notices increasing redness about the ulcerative site that moves up the leg, purulent drainage from the ulcerative site, increasing foul odor from the ulcerative site, or if she develops fever greater than 101 degree, develops nausea, vomiting, chills, these are signs of a progressing infection and she should report to the ED for IV antibiotics. She voices understanding of this today. The following work up and care recommendations were made: Dressing: Pad and protect medial ankle Wash: Soap and water Tissue growth optimization: None Offload: Full weightbearing to right lower extremity with supportive shoe gear Vascular: DP and PT pulses palpable with adequate capillary fill time to digits. Did undergo venous procedure 07/21/[address] Salinas. Edema: Patient does have chronic venous insufficiency with bilateral lower extremity edema. Infection: Positive bone culture Staph aureus. Infectious disease following and patient on oral antibiotic doxycycline for an additional 4 weeks. Pain: May take [id number] Tylenol for discomfort Host factors: Chronic venous insufficiency, autoimmune disease, pyoderma gangrenosum At this time prognosis is good and does appear to be healing well with closure nearing. I answered all the patient's questions. To return to the wound healing center in 2 weeks or call sooner if the patient has any questions or concerns. Will return to the wound care center for continued postoperative care s/p I&D, removal of infected hardware right ankle, and bone biopsy tibia and fibula.
[2025-01-12 10:42] VITALS: BP 149/89; PULSE 79; RESP 16; TEMP 36.6
--- NOTE | 2025-01-12 13:20 | PCM.WC.PN ---
History of Present Illness Date of Service: 01/12/25 Chief Complaint: Surgical wound dehiscence right leg History of Wound: Patient is a 38-year-old female who subsequently developed a surgical wound dehiscence of her right lateral lower extremity. She previously underwent surgery for primary repair of split tear of the peroneus brevis tendon, primary repair of anterior tibiofibular ligament (AITFL), and syndesmotic reduction via tight rope of the right lower extremity on 04/24/2023. Following removal of sutures she developed surgical wound dehiscence secondary to continued lower extremity swelling via chronic venous insufficiency. She did undergo debridement in office 06/05/2023 and Deidre was applied at this time with Tubigrip compression. She has worn compression stockings to manage lower extremity swelling prior to surgical intervention. Patient is also noted to have autoimmune disease and is managed by rheumatology with medication and did resume all medications 2 weeks post operative per rheumatology. She was referred to the wound care center for continued wound healing. She has been applying Deidre and dry sterile dressings daily. She denies N/V/F/chills. Denies further complaints. Subjective Subjective This is a 39-year-old female who presents to the wound care center for continued follow-up of medial and lateral ankle ulceration. She did undergo debridement with removal of infected hardware of the right ankle on 07/21/2024. At that time bone biopsy was also taken of the tibia and fibula confirming infection. She also underwent vascular procedure with Dr. Salinas following removal of her hardware. Continues to follow with vascular postprocedure and reports no issues. She returned to shoe gear full weightbearing without difficulty. She continues to change dressing daily medial leg wound site with Band-Aid to pad and protect site but states she believes it is now healed. Currently denies N/V/F/chills. Denies further complaints. Objective Data Objective Data Vital Signs: Vital Signs Temp Pulse Resp BP O2 Del Method 97.8 F 79 16 149/89 H Room Air 01/12/25 10:42 01/12/25 10:42 01/12/25 10:42 01/12/25 10:42 01/12/25 10:42 Oxygen Delivery Method Room Air Physical Exam Const alert, oriented x3 and no apparent distress General Appearance: cooperative HEENT normocephalic Eyes General Eye: normal appearance of both eyes Neck General: normal visual inspection Lymph Lymphatic: no lymphadenopathy noted and no lymphedema noted Resp normal respiratory effort Cardio regular rate and regular rhythm Extremity no calf tenderness Extremity Narrative: Right Lower Extremity: Vascular DP and PT pulses palpable bilateral. Capillary fill time less than 3 seconds to digits bilateral. Normal temperature gradient. There is hair growth present to lower extremity and digits. Neurologic: Epicritic sensation intact no focal deficits noted. Dermatological: There is bilateral lower extremity edema secondary to chronic venous stasis with some hemosiderin deposition noted about the right lower extremity. Cicatrix to medial and lateral ankle. Previous area of superficial dehiscence at Medial site is now healed. Lateral site healed. No signs of infection. Musculoskeletal: Muscle strength 5 of 5 age-appropriate. No pain to palpation about the lateral leg of the right lower extremity. No pain to palpation calf. Skin no rashes or lesions noted Neuro moves all extremities Debridement Note Debridement Note No debridement was completed: No debridement was completed today Post-Debridement Measurements and Additional Note: Post-Debridement Measurements/Treatment - Nurse 1 - General Ulcer Assessment Start: 12/29/24 10:17 Freq: Status: Active Protocol: [email or web address] Activity Type Activity Date Activity User E-sign Co-sign Detail Recorded Client Recorded Date Recorded By Document 12/29/24 10:17 [id number] 12/29/24 10:24 Document 01/12/25 10:42 [facility] [id number] 01/12/25 10:44 [facility] 12/29/24 01/12/25 10:17 10:42 - Today's Visit Information Type of service Follow-up Visit Follow-up Visit (Physician/HEEL TRIMMER (Physician/HEEL TRIMMER ) ) Arrival Mode Ambulatory,Cane Ambulatory,Cane Transfer Assistance None None Patient Identification Verified (Name & Yes Yes ) Patient Requires Transmission-Based No No Precautions Vital Signs Temperature (97.8 F-99.1 F) 97.2 F L 97.8 F Temperature Source Temporal Temporal Pulse Rate (60-100) 86 79 Pulse Location Monitor Monitor Respiratory Rate (12-18) 16 16 Respiratory rate source Observation Observation Oxygen Delivery Method Room Air Blood Pressure (90/60-120/80) 141/93 H 149/89 H Blood Pressure Mean (mm Hg) 109 109 Source Monitor Monitor Position Sitting Sitting Blood Pressure Location Left Forearm Left Forearm History Since Last Visit- (Skip if this is Patient's initial visit) Have you changed medications since your No No last visit? Any new allergies or adverse reactions No No Had a fall/change in ADL's that may No No increase risk of falls Signs or symptoms of abuse and/or No No neglect since last visit Have you been in the hospital since your No No last visit? Has dressing in place as prescribed Yes Yes Has compression in place as prescribed Yes Yes Has offloadiing in place as prescribed N/A Experienced any changes in pain level or Yes No management Left Footwear Regular Shoe Regular Shoe Right Footwear Surgical Shoe Surgical Shoe with pressure with pressure relief insole relief insole Pain Scale: 0-10 Numeric Is Patient Pain Free? No Yes WC - Nurse 1 - General Ulcer Measurement Start: 12/29/24 10:17 Freq: Status: Active Protocol: Activity Type Activity Date Activity User E-sign Co-sign Detail Recorded Client Recorded Date Recorded By Document 12/29/24 10:17 [id number] 12/29/24 10:24 CP Document 01/12/25 10:42 [facility] [id number] 01/12/25 10:44 [facility] 12/29/24 01/12/25 10:17 10:42 Wound Center Nurse 1 #2 RT MED ANKLE -Combined with other wound No -Current Size (cm) - Length 0.1 0.1 -Current Size (cm) - Width 0.1 0.1 -Current Size (cm) - Depth 0.1 0.1 -Total Square Cm 0.01 0.01 -Date of Last Picture (Recall this 01/12/25 field) -Photo Taken Yes -Epithelialization Large 67-100% Large 67-100% -Tunneling No -Undermining/Tunneling No -Change in Wound Grade/Stage No -Exudate Amt None Present None Present -Slough/Fibrin No -Necrosis Amt None Present (0 %) -Structure Exposed N/A -Texture (Meghan-wound Skin Appearance) No Abnormality -Moisture (Meghan-wound Skin Appearance) No Abnormality -Color (Meghan-wound Skin Appearance) No Abnormality -Temperature (Meghan-wound Skin No Abnormality Appearance) (Pt Warm) -Tenderness on Palpation (Meghan-wound No Skin Appearance) -Ulcer Cleansing Rinsed/ Irrigated with Saline -Foul Odor after Cleansing No Right Calf (cm) 44.5 Right Ankle (cm) 28.1 - Nurse 2 - General Ulcer CM Notes Start: 12/29/24 10:17 Freq: Status: Active Protocol: Activity Type Activity Date Activity User E-sign Co-sign Detail Recorded Client Recorded Date Recorded By Document 12/29/24 11:25 [facility] [id number] 12/29/24 11:27 [facility] Document 01/12/25 10:57 [facility] [id number] 01/12/25 10:58 [facility] 12/29/24 01/12/25 11:25 10:57 Wound Center Nurse 2 #2 RT MED ANKLE -Time 11:25 10:57 -Procedure Performed No -Post Debridement (cm) - Length 0.1 0 -Post Debridement (cm) - Width 0.1 0 -Post Debridement (cm) - Depth 0.1 0 -Total Square (Post) (cm) 0.01 0 -Area of Debridement (cm) - Length 0.1 0 -Area of Debridement (cm) - Width 0.1 0 -Total Square (Area) (cm) 0.01 0 -Wound/Ulcer Outcome Not Healed Healed- Epithelialized -Bleeding Controlled with NA NA Pain Scale: 0-10 Numeric Is Patient Pain Free? Yes Yes - Nurse 3 - General Ulcer D/C NN Start: 12/29/24 10:17 Freq: Status: Active Protocol: Activity Type Activity Date Activity User E-sign Co-sign Detail Recorded Client Recorded Date Recorded By Document 12/29/24 11:30 [facility] [id number] 12/29/24 11:32 [facility] 12/29/24 11:30 Wound Care Center Nurse 3 #2 RT MED ANKLE -Other Dressing left open to air RLE -Tubular Bandage Single Layer -Size of Tubigrip Used Size E -Size E ($) 1 Pain Scale: 0-10 Numeric Is Patient Pain Free? Yes - Visit Discharge Discharge Condition Stable Ambulatory Status Ambulatory,Cane Assessment/Plan Assessment/Plan (1) Non-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: CODE(S): L97.312 - Non-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 (2) Lipodermatosclerosis of right lower extremity: CODE(S): M79.3 - Panniculitis, unspecified (3) Venous insufficiency (chronic) (peripheral): CODE(S): I87.2 - Venous insufficiency (chronic) (peripheral) PLAN: Plan Patient seen and evaluated She is s/p I&D, removal of infected hardware right ankle, and bone biopsy tibia and fibula. DOS: 07/21/2024. POD #157 She is 6 months out from surgery. Dressings were removed and site was inspected with cicatrix at the medial and lateral ankle. There is small superficial area of dehiscence medial site. Lateral site remains healed. No signs of infection. Pre-debridement: Medial healed, lateral healed Site did not undergo debridement as noted in clinical panel above. Postdebridement measurements of medial site of the right lower extremity is healed and lateral site remains healed. There is continued improvement noted to her medial side from previous visit with healed status achieved. Currently she has no purulence or signs of infection from either site and pain continues improving about wound sites. She will continue full weightbearing in supportive shoe. A small Plastizote lift was added to the left shoe at last visit and she feels this is helping. She is also to continue to elevate right lower extremity at times of rest for postoperative edema control. She did see infectious disease who opted for continued oral antibiotic, doxycycline 100 mg twice a day for 6 weeks. She has finished the 6-week course of oral antibiotic. She did return for another visit with Dr. Moya due to her generalized fatigue and soreness of the ankle following stopping of the oral antibiotic. He did decide to extend the oral antibiotic doxycycline for an additional 4 weeks. She did complete this course and is now off oral antibiotic. I discussed with her at this time I do not feel she needs to continue this. I have previously discussed the surgical cultures, including bone cultures did demonstrate staph aureus. Discussed that she does currently have osteomyelitis of the fibula and distal tibia, and has now finished her oral antibiotic course. Discharged from ID standpoint. Radiographs of the right lower extremity from 10/13/2024 demonstrate healing and ossification of bone tunnel in the distal fibula at prior sites of osteomyelitis. She will continue to follow with Dr. Salinas post venous ablation. She did last see Dr. Moralez, nuclear monitoring technician who is in agreement with healing currently and is discontinued all prior treatment. Patient is currently on immunosuppressant agents for autoimmune disease, continues follow with Rheumatology. At this time with healing going well she may resume autoimmune agents with rheumatology. The following work up and care recommendations were made: Dressing: None Wash: Soap and water Tissue growth optimization: None Offload: Full weightbearing to right lower extremity with supportive shoe gear Vascular: DP and PT pulses palpable with adequate capillary fill time to digits. Did undergo venous procedure 07/21/[address] Salinas. Edema: Patient does have chronic venous insufficiency with bilateral lower extremity edema. Infection: Positive bone culture Staph aureus. Infectious disease following and patient on oral antibiotic doxycycline for an additional 4 weeks. Pain: May take [id number] Tylenol for discomfort Host factors: Chronic venous insufficiency, autoimmune disease, pyoderma gangrenosum With healed status achieved she is being discharged from the wound care center today I answered all the patient's questions. To return to the wound healing center as needed or call sooner if the patient has any questions or concerns.
--- NOTE | 2025-01-12 15:23 | WC ---
PHOTO-RIGHT MED ANKLE 01/12/25
== END 2025-01-19 14:52 | disposition home or self-care (01) ==
LOC: WC 10:00
PROVIDERS: PCP Internal Medicine; Referring Provider Student in an Organized Health Care Education/Training Program; Visit Provider Student in an Organized Health Care Education/Training Program
DX: T81.31XA Disruption of external operation (surgical) wound, not elsewhere classified, initial encounter (principal); Y83.8 Other surgical procedures as the cause of abnormal reaction of the patient, or of later complication, without mention of misadventure at the time of the procedure; I87.8 Other specified disorders of veins; R60.0 Localized edema; L90.5 Scar conditions and fibrosis of skin; M79.3 Panniculitis, unspecified; Z79.01 Long term (current) use of anticoagulants; Z79.899 Other long term (current) drug therapy
CPT/HCPCS: 99213; G0463

== ENCOUNTER → 2025-02-07 | Outpatient (CLI) | payer MEDICARE, MEDICAID, SELFPAY ==
[2025-02-07 12:59] LABS: Hematocrit 43.0 % (37-47); Hemoglobin 13.4 g/dL (12.0-15.0); Mean Corp Hgb Conc 31.2 g/dL (32-36); Mean Corpuscular Volume 83.0 fL (81-99); Mean Platelet Vol. 9.9 fl (6.2-12.0); Platelet Count 273 K/mm3 (150-450); RBC Distribution Width CV 16.1 % (11.6-14.6); RBC Distribution Width SD 49.1 fl (35.1-43.9); Red Blood Count 5.18 M/mm3 (4.2-5.4); White Blood Count 6.9 K/mm3 (4.4-11.0)
[2025-02-07 13:54] LABS: AST(SGOT) 28 U/L (<=31); Alanine Aminotransfer ALT/SGPT 18 U/L (<=34)
== END | disposition home or self-care (01) ==
LOC: LAB 12:16
PROVIDERS: PCP Internal Medicine; Referring Provider Internal Medicine Rheumatology; Visit Provider Internal Medicine Rheumatology
DX: Z79.60 Long term (current) use of unspecified immunomodulators and immunosuppressants (principal)
CPT/HCPCS: 36415; 82565; 84450; 84460; 85027